=== PATIENT | female | born 1990 | race Caucasian/White ===

== ENCOUNTER 2017-03-15 13:54 | Inpatient (IN) | payer BC ==
[2017-03-15] VITALS (8 sets, daily range): BP systolic 103–119; BP diastolic 55–72
[~2017-03-15] VITALS: Ht 175.3 cm; Wt 141.6 kg
[~2017-03-15 13:54] MED LIST: BUPIVACAINE-EPI 0.5%-1:200000 50 ML VIAL. ONE
[2017-03-15] MEDS ORDERED: PROPOFOL 20 ML IV ONE (14:06)
[2017-03-15] MEDS ORDERED: DEXAMETHASONE SOD PHOS 20 MG/5 ML VIAL. ONE (14:06)
[2017-03-15] MEDS ORDERED: LIDOCAINE 2% PF Vial for OR 5 ML VIAL. ONE (14:06)
[2017-03-15] MEDS ORDERED: ONDANSETRON PF 4 MG/2 ML VIAL. ONE (14:06)
[2017-03-15] MEDS ORDERED: fentaNYL PF VIAL 100 MCG/2 ML VIAL ONE (14:06)
[2017-03-15] MEDS ORDERED: MIDAZOLAM HCL/PF 2 MG/2 ML VIAL. ONE (14:06)
[2017-03-15] MEDS ORDERED: SUCCINYLCHOLINE 200 MG/10 ML VIAL. ONE (14:07)
[2017-03-15] MEDS ORDERED: ROCURONIUM 100 MG/10 ML VIAL. ONE (14:07)
[2017-03-15] MEDS ORDERED: IV NORMAL SALINE 1000ML BAG 1,000 ML IV ONE (14:15)
--- NOTE | 2017-03-15 14:36 | PDOC1 ---
History and Physical Date of Admission Date of Admission DATE: 03/15/17 TIME: 14:32 Identification/Chief Complaint Chief Complaint Abd pain, appendicitis Problems: Source Source: Patient History of Present Illness History of Present Illness 26 yo F with one history of abd pain moving into [facility], started yesterday evening , but awoken from sleep this AM. Denies previous episodes. Past Medical History GI: GERD Past Surgical History Past Surgical History: Other (gastric sleeve last month, lost 30 lbs since) Family History Family History: No Significant Social History Smoke: No ALCOHOL: none Current Medications Current Medications Current Medications Dexamethasone Sodium Phosphate (Decadron) 20 mg STK-MED ONCE .ROUTE ; Start 03/15/17 at 14:06; Stop 03/15/17 at 14:07; Status DC Ondansetron HCl (Zofran) 4 mg STK-MED ONCE .ROUTE ; Start 03/15/17 at 14:06; Stop 03/15/17 at 14:07; Status DC Propofol 20 ml @ As Directed STK-MED ONCE IV ; Start 03/15/17 at 14:06; Stop at 14:07; Status DC Lidocaine HCl (Lidocaine Pf 2% Vial) 5 ml STK-MED ONCE .ROUTE ; Start 03/15/17 at 14:06; Stop 03/15/17 at 14:07; Status DC Midazolam HCl (Versed) 2 mg STK-MED ONCE .ROUTE ; Start 03/15/17 at 14:06; Stop 03/15/17 at 14:07; Status DC Fentanyl Citrate (Fentanyl 2ml Vial) 100 mcg STK-MED ONCE .ROUTE ; Start at 14:06; Stop 03/15/17 at 14:07; Status DC Rocuronium [place] (Zemuron) 100 mg STK-MED ONCE .ROUTE ; Start 03/15/17 at 14: 07; Stop 03/15/17 at 14:08; Status DC Succinylcholine Chloride (Anectine) 200 mg STK-MED ONCE .ROUTE ; Start 03/15/17 at 14:07; Stop 03/15/17 at 14:08; Status DC Bupivacaine HCl/ Epinephrine Bitart (Marcaine-Epi 0.5%-1:[id number]) 50 ml STK-MED ONCE .ROUTE ; Start 03/15/17 at 13:07; Stop 03/15/17 at 14:08; Status DC Cefoxitin Sodium 2 gm/Sodium Chloride 100 ml @ 200 mls/hr 1X PREOP IV ; Start 03/15/17 at 14:15; Status UNV Sodium Chloride 1,000 ml @ 125 mls/hr 1X ONCE IV Last administered on t 14:15; Start 03/15/17 at 14:15; Stop 03/15/17 at 22:14; Status UNV ROS Gastrointestinal: Yes Abdominal Pain Physical Exam General: Alert, Oriented X3, Cooperative, mild distress HEENT: Atraumatic, EOMI Lungs: Normal air movement Abdomen: Soft, Other (TTP RLQ, well healed incisions) Male Genitals Exam: testicular tenderness (R) Rectal Exam: not examined Extremities: No clubbing, No cyanosis Skin: No rashes, No breakdown Neuro: Normal speech, Sensation intact Psych/Mental Status: Mental status NL, Mood NL, Other (pt morbidly obese) Vitals Vitals Vital Signs Date Time Temp Pulse Resp B/P (MAP) Pulse Ox O2 Delivery O2 Flow Rate FiO2 03/15/17 14:19 96.9 73 20 120/69 96 96.9 Labs Labs labs wnl at [facility] Images CT c/w appendicitis VTE Prophylaxis Ordered VTE Prophylaxis Devices: Contraindicated VTE Pharmacological Prophylaxi: Contraindicated Assessment/Plan Assessment/Plan Appendicitis TO OR for laparoscopic versus open appendectomy. R/B/A d/w pt and pt's . POPPY TUBBS MD Mar 15, 2017 14:36
--- NOTE | 2017-03-15 15:28 | PDOC4 ---
OPERATIVE NOTE Date: Date: Mar 15, 2017 Pre-Op Diagnosis: Appendicitis Post-Op Diagnosis: appendicitis with perforation Procedure Performed: Laparoscopic appendectomy Surgeon: Lorenzo Tubbs Anesthesia Type: GETA plus 0.5% marcaine Blood Loss: 50 Specimans Obtained: appendix Findings: evidence of perforation of the tip Complications: none Operative Note: After obtaining informed consent, patient was taken to the OR and induced under GETA. Patient was prepped and drapped in usual fashion. 5 mm port placed LLQ and suprapubic. 12 port placed in supraumbilical under laparoscopic guidance. No evidence of complications of gastric sleeve. Appendix was very indurated and the tip had perforated with stool. Defect created in the mesoappendix. General load GAGAN divided appendix at base. Vascular load divided mesoappendix. Appendix was delivered via endocatch bag. Copious irrigation. O vicryl repaired fascia. Skin repaired with 4 0 monocryl. Dressing applied. Patient tolerated procedure well and sent to PACU in stable condition. All counts correct. No immediate complications. Wound class is dirty. LORENZO TUBBS MD Mar 15, 2017 15:28
[2017-03-15] MEDS ORDERED: ENOXAPARIN 40 MG/0.4 ML SYRINGE. SQ SCH (15:30)
[2017-03-15] MEDS ORDERED: HYDROcodone/APAP 5/325MG 1 TAB TABLET PO PRN (15:30)
[2017-03-15] MEDS ORDERED: 0.9 % SODIUM CHLORIDE 10 ML DISP.SYRIN. IV PRN (15:30)
[2017-03-15] MEDS ORDERED: KETOROLAC 15 MG/ML VIAL. IV PRN (15:30)
[2017-03-15] MEDS ORDERED: MORPHINE SULFATE 10 MG/ML VIAL. ONE (15:32)
[2017-03-15] MEDS ORDERED: IV RINGERS,LACTATED 1000ML 1,000 ML IV SCH (15:42)
[2017-03-15] MEDS ORDERED: LIDOCAINE 1% PF 2 ML VIAL. INJ PRN (15:45)
[2017-03-15] MEDS ORDERED: METOCLOPRAMIDE HCL 10 MG/2 ML VIAL. IV PRN (15:45)
[2017-03-15] MEDS ORDERED: MORPHINE SULFATE 2 MG/ML DISP.SYRIN. IV PRN (15:45)
[2017-03-15] MEDS ORDERED: fentaNYL PF VIAL 100 MCG/2 ML VIAL IV PRN (15:45)
[2017-03-15] MEDS ORDERED: MEPERIDINE PF 25 MG/ML VIAL. IV PRN ×2 (15:45)
[2017-03-15] MEDS ORDERED: MORPHINE SULFATE 4 MG/ML DISP.SYRIN. IV PRN (15:45)
[2017-03-15] MEDS ORDERED: diphenhydrAMINE 50 MG/ML VIAL IV PRN (15:45)
[2017-03-15] MEDS ORDERED: DEXAMETHASONE SOD PHOS 4 MG/ML VIAL IV PRN (15:45)
[2017-03-15] MEDS ORDERED: ALBUTEROL SULFATE 2.5 MG/3 ML NEBU. NEB PRN (15:45)
[2017-03-15] MEDS ORDERED: ONDANSETRON PF 4 MG/2 ML VIAL. IV PRN (15:45)
[2017-03-15] MEDS ORDERED: PROCHLORPERAZINE 10 MG/2 ML VIAL. ONE (15:48)
[2017-03-15] MEDS: fentaNYL PF VIAL 100 MCG/2 ML VIAL IV PRN ×2 (15:53→15:58)
[2017-03-15] MEDS ORDERED: PROCHLORPERAZINE 5 MG TABLET. PO PRN (16:00)
[2017-03-15] MEDS: HYDROmorphone 2 MG/ML VIAL IV PRN ×3 (16:16→16:52)
[2017-03-15] MEDS: PIPERACILLIN/TAZOBACTAM 3.375 GM in IV NORMAL SALINE 50ML 50 ML IV SCH (17:24)
[2017-03-15] MEDS: MORPHINE SULFATE 4 MG/ML DISP.SYRIN. IV PRN ×3 (17:24→22:19)
[2017-03-15] MEDS: IV RINGERS,LACTATED 1000ML 1,000 ML IV SCH ×2 (17:28)
[2017-03-15] MEDS: ONDANSETRON PF 4 MG/2 ML VIAL. IV PRN (17:37)
--- NOTE | 2017-03-15 18:46 | HP ---
ADMIT DATE: 03/15/2017 CHIEF COMPLAINT: Abdominal pain, appendicitis. HISTORY OF PRESENT ILLNESS: The patient is a pleasant, healthy 26-year-old female who went to [facility] ER with abdominal pain. They did a CAT scan that showed appendicitis. She has now been transferred here to our facility where she just underwent laparoscopic appendectomy. She is now being examined in the postoperative period. PAST MEDICAL HISTORY: Overweight, but otherwise benign. ALLERGIES: None. FAMILY HISTORY: Diabetes. SOCIAL HISTORY: She does not drink, smoke or take drugs. MEDICATIONS: Reviewed. REVIEW OF SYSTEMS: Unreliable. The patient is little too confused after surgery, a little sedated. PHYSICAL EXAMINATION: VITAL SIGNS: Temperature afebrile, pulse 74, respirations 18, blood pressure 144/64. GENERAL: She is sleeping. She awakens. She is a little confused. HEART: Normal S1, S2. LUNGS: Clear. ABDOMEN: Soft. There are clean trocars sites with clean, dry, intact bandaging. ENDOCRINE: No thyromegaly. LYMPHATICS: No cervical nodes. HEMATOPOIETIC: No bruising. ASSESSMENT AND PLAN: Postop laparoscopic appendectomy. The patient is being admitted. We will check her labs again in the morning. Wound care. Try to advance her diet. We certainly agree and appreciate with General Surgery's rapid intervention. FLAKO WATT DO DR: ENRIQUE/meena JOB#: [id number] / [id number]
[2017-03-15] MEDS ORDERED: MULT1TAB52 PO (19:51)
[2017-03-15] MEDS ORDERED: OMEP20CA9 PO (19:51)
[2017-03-15] MEDS: DOCUSATE SODIUM 100 MG CAPSULE. PO SCH (22:18)
[2017-03-16] MEDS: IV RINGERS,LACTATED 1000ML 1,000 ML IV SCH ×4 (00:51→21:19)
[2017-03-16] MEDS: PIPERACILLIN/TAZOBACTAM 3.375 GM in IV NORMAL SALINE 50ML 50 ML IV SCH ×4 (00:51→18:00)
[2017-03-16 03:00] VITALS: BP 111/71
[2017-03-16 05:03] LABS: BASO % 0 % (0-3); EOS % 0 % (0-3); HEMATOCRIT 41.1 % (36.0-47.0); HEMOGLOBIN 13.5 g/dL (12.0-15.5); LYMPH # 0.6 x10^3/uL (1.0-4.8); LYMPH % 6 % (24-48); MEAN CORPUSCULAR HEMOGLOBIN 30 pg (25-35); MEAN CORPUSCULAR HGB CONC 33 g/dL (31-37); MEAN CORPUSCULAR VOLUME 91 fL (79-100); MONO % 6 % (0-9); NEUT % 88 % (31-73); PLATELET COUNT 200 x10^3/uL (140-400); RED BLOOD COUNT 4.54 x10^6/uL (3.50-5.40); RED CELL DISTRIBUTION WIDTH 14.9 % (11.5-14.5); WHITE BLOOD COUNT 11.6 x10^3/uL (4.0-11.0)
[2017-03-16 05:39] LABS: CREATININE 0.8 mg/dL (0.6-1.0); GFR 85.4
[2017-03-16 07:00] VITALS: BP 108/66
[2017-03-16] MEDS: MORPHINE SULFATE 4 MG/ML DISP.SYRIN. IV PRN ×5 (08:45→19:58)
[2017-03-16] MEDS: DOCUSATE SODIUM 100 MG CAPSULE. PO SCH ×2 (08:46→21:13)
[2017-03-16] MEDS ORDERED: HYDROcodone/APAP 5/325MG 1 TAB TABLET PO PRN (09:15)
--- NOTE | 2017-03-16 09:18 | PDOC ---
SURGICAL PROGRESS NOTE Subjective some pain, improved with meds tolerating diet urinating Vital Signs Vital Signs Date Time Temp Pulse Resp B/P (MAP) Pulse Ox O2 Delivery O2 Flow Rate FiO2 03/16/17 08:45 Room Air 03/16/17 07:00 97.8 84 18 108/66 (80) 95 2.0 97.8 General: Alert, Oriented X3, Cooperative, No acute distress Abdomen: Soft, Other (lap dressings dry, expected incisional TTP) Labs Laboratory Tests Test 03/16/17 04:28 White Blood Count 11.6 x10^3/uL (4.0-11.0) Red Blood Count 4.54 x10^6/uL (3.50-5.40) Hemoglobin 13.5 g/dL (12.0-15.5) Hematocrit 41.1 % (36.0-47.0) Mean Corpuscular Volume 91 fL (79-100) Mean Corpuscular Hemoglobin 30 pg (25-35) Mean Corpuscular Hemoglobin Concent 33 g/dL (31-37) Red Cell Distribution Width 14.9 % (11.5-14.5) Platelet Count 200 x10^3/uL (140-400) Neutrophils (%) (Auto) 88 % (31-73) Lymphocytes (%) (Auto) 6 % (24-48) Monocytes (%) (Auto) 6 % (0-9) Eosinophils (%) (Auto) 0 % (0-3) Basophils (%) (Auto) 0 % (0-3) Neutrophils # (Auto) 10.2 x10^3uL (1.8-7.7) Lymphocytes # (Auto) 0.6 x10^3/uL (1.0-4.8) Monocytes # (Auto) 0.7 x10^3/uL (0.0-1.1) Eosinophils # (Auto) 0.0 x10^3/uL (0.0-0.7) Basophils # (Auto) 0.0 x10^3/uL (0.0-0.2) Sodium Level 137 mmol/L (136-145) Potassium Level 4.0 mmol/L (3.5-5.1) Chloride Level 103 mmol/L (98-107) Carbon Dioxide Level 22 mmol/L (21-32) Anion Gap 12 (6-14) Blood Urea Nitrogen 5 mg/dL (7-20) Creatinine 0.8 mg/dL (0.6-1.0) Estimated GFR (Cockcroft-Gault) 85.4 Glucose Level 146 mg/dL (70-99) Calcium Level 9.0 mg/dL (8.5-10.1) Laboratory Tests Test 03/16/17 04:28 White Blood Count 11.6 x10^3/uL (4.0-11.0) Red Blood Count 4.54 x10^6/uL (3.50-5.40) Hemoglobin 13.5 g/dL (12.0-15.5) Hematocrit 41.1 % (36.0-47.0) Mean Corpuscular Volume 91 fL (79-100) Mean Corpuscular Hemoglobin 30 pg (25-35) Mean Corpuscular Hemoglobin Concent 33 g/dL (31-37) Red Cell Distribution Width 14.9 % (11.5-14.5) Platelet Count 200 x10^3/uL (140-400) Neutrophils (%) (Auto) 88 % (31-73) Lymphocytes (%) (Auto) 6 % (24-48) Monocytes (%) (Auto) 6 % (0-9) Eosinophils (%) (Auto) 0 % (0-3) Basophils (%) (Auto) 0 % (0-3) Neutrophils # (Auto) 10.2 x10^3uL (1.8-7.7) Lymphocytes # (Auto) 0.6 x10^3/uL (1.0-4.8) Monocytes # (Auto) 0.7 x10^3/uL (0.0-1.1) Eosinophils # (Auto) 0.0 x10^3/uL (0.0-0.7) Basophils # (Auto) 0.0 x10^3/uL (0.0-0.2) Sodium Level 137 mmol/L (136-145) Potassium Level 4.0 mmol/L (3.5-5.1) Chloride Level 103 mmol/L (98-107) Carbon Dioxide Level 22 mmol/L (21-32) Anion Gap 12 (6-14) Blood Urea Nitrogen 5 mg/dL (7-20) Creatinine 0.8 mg/dL (0.6-1.0) Estimated GFR (Cockcroft-Gault) 85.4 Glucose Level 146 mg/dL (70-99) Calcium Level 9.0 mg/dL (8.5-10.1) Problem List s/p lap appy, tip perforation continue abx did require some morphine this AM cbc in AM Problems: JORGE DEVI APRN Mar 16, 2017 09:18
[2017-03-16 11:00] VITALS: BP 122/63
--- NOTE | 2017-03-16 12:53 | PDOC ---
PROGRESS NOTES Chief Complaint Chief Complaint acute appendicitis with perforation s/p lap appendectomy 03/15 morbid obesity BMI 44 SIRS no sepsis PLAN; fu with sx, clear liquid diet, may advance to full liquid at least today if ok with sx ivf still on zosyn since perforation labs tmr pain control dvt, gi ppx History of Present Illness History of Present Illness ROS: no fever, chills, sob or chest pain NO BM OR flatus post op severe abd pain need iv morphine ok with clear diet Vitals Vitals Vital Signs Date Time Temp Pulse Resp B/P (MAP) Pulse Ox O2 Delivery O2 Flow Rate FiO2 03/16/17 12:04 Nasal Cannula 2.0 03/16/17 11:00 98.2 82 18 122/63 (82) 96 98.2 Physical Exam General: Alert, Oriented X3, Cooperative, No acute distress Heart: Regular rate, Normal S1, Normal S2 Lungs: Clear Abdomen: Normal bowel sounds, Soft, Other (lap dressings dry, expected incisional TTP) Extremities: No clubbing, No cyanosis Skin: No rashes, No breakdown Labs LABS Laboratory Tests Test 03/16/17 04:28 White Blood Count 11.6 x10^3/uL (4.0-11.0) Red Blood Count 4.54 x10^6/uL (3.50-5.40) Hemoglobin 13.5 g/dL (12.0-15.5) Hematocrit 41.1 % (36.0-47.0) Mean Corpuscular Volume 91 fL (79-100) Mean Corpuscular Hemoglobin 30 pg (25-35) Mean Corpuscular Hemoglobin Concent 33 g/dL (31-37) Red Cell Distribution Width 14.9 % (11.5-14.5) Platelet Count 200 x10^3/uL (140-400) Neutrophils (%) (Auto) 88 % (31-73) Lymphocytes (%) (Auto) 6 % (24-48) Monocytes (%) (Auto) 6 % (0-9) Eosinophils (%) (Auto) 0 % (0-3) Basophils (%) (Auto) 0 % (0-3) Neutrophils # (Auto) 10.2 x10^3uL (1.8-7.7) Lymphocytes # (Auto) 0.6 x10^3/uL (1.0-4.8) Monocytes # (Auto) 0.7 x10^3/uL (0.0-1.1) Eosinophils # (Auto) 0.0 x10^3/uL (0.0-0.7) Basophils # (Auto) 0.0 x10^3/uL (0.0-0.2) Sodium Level 137 mmol/L (136-145) Potassium Level 4.0 mmol/L (3.5-5.1) Chloride Level 103 mmol/L (98-107) Carbon Dioxide Level 22 mmol/L (21-32) Anion Gap 12 (6-14) Blood Urea Nitrogen 5 mg/dL (7-20) Creatinine 0.8 mg/dL (0.6-1.0) Estimated GFR (Cockcroft-Gault) 85.4 Glucose Level 146 mg/dL (70-99) Calcium Level 9.0 mg/dL (8.5-10.1) Comment Review of Relevant I have reviewed the following items na (where applicable) has been applied. Labs Laboratory Tests Test 03/16/17 04:28 White Blood Count 11.6 x10^3/uL (4.0-11.0) Red Blood Count 4.54 x10^6/uL (3.50-5.40) Hemoglobin 13.5 g/dL (12.0-15.5) Hematocrit 41.1 % (36.0-47.0) Mean Corpuscular Volume 91 fL (79-100) Mean Corpuscular Hemoglobin 30 pg (25-35) Mean Corpuscular Hemoglobin Concent 33 g/dL (31-37) Red Cell Distribution Width 14.9 % (11.5-14.5) Platelet Count 200 x10^3/uL (140-400) Neutrophils (%) (Auto) 88 % (31-73) Lymphocytes (%) (Auto) 6 % (24-48) Monocytes (%) (Auto) 6 % (0-9) Eosinophils (%) (Auto) 0 % (0-3) Basophils (%) (Auto) 0 % (0-3) Neutrophils # (Auto) 10.2 x10^3uL (1.8-7.7) Lymphocytes # (Auto) 0.6 x10^3/uL (1.0-4.8) Monocytes # (Auto) 0.7 x10^3/uL (0.0-1.1) Eosinophils # (Auto) 0.0 x10^3/uL (0.0-0.7) Basophils # (Auto) 0.0 x10^3/uL (0.0-0.2) Sodium Level 137 mmol/L (136-145) Potassium Level 4.0 mmol/L (3.5-5.1) Chloride Level 103 mmol/L (98-107) Carbon Dioxide Level 22 mmol/L (21-32) Anion Gap 12 (6-14) Blood Urea Nitrogen 5 mg/dL (7-20) Creatinine 0.8 mg/dL (0.6-1.0) Estimated GFR (Cockcroft-Gault) 85.4 Glucose Level 146 mg/dL (70-99) Calcium Level 9.0 mg/dL (8.5-10.1) Laboratory Tests Test 03/16/17 04:28 White Blood Count 11.6 x10^3/uL (4.0-11.0) Red Blood Count 4.54 x10^6/uL (3.50-5.40) Hemoglobin 13.5 g/dL (12.0-15.5) Hematocrit 41.1 % (36.0-47.0) Mean Corpuscular Volume 91 fL (79-100) Mean Corpuscular Hemoglobin 30 pg (25-35) Mean Corpuscular Hemoglobin Concent 33 g/dL (31-37) Red Cell Distribution Width 14.9 % (11.5-14.5) Platelet Count 200 x10^3/uL (140-400) Neutrophils (%) (Auto) 88 % (31-73) Lymphocytes (%) (Auto) 6 % (24-48) Monocytes (%) (Auto) 6 % (0-9) Eosinophils (%) (Auto) 0 % (0-3) Basophils (%) (Auto) 0 % (0-3) Neutrophils # (Auto) 10.2 x10^3uL (1.8-7.7) Lymphocytes # (Auto) 0.6 x10^3/uL (1.0-4.8) Monocytes # (Auto) 0.7 x10^3/uL (0.0-1.1) Eosinophils # (Auto) 0.0 x10^3/uL (0.0-0.7) Basophils # (Auto) 0.0 x10^3/uL (0.0-0.2) Sodium Level 137 mmol/L (136-145) Potassium Level 4.0 mmol/L (3.5-5.1) Chloride Level 103 mmol/L (98-107) Carbon Dioxide Level 22 mmol/L (21-32) Anion Gap 12 (6-14) Blood Urea Nitrogen 5 mg/dL (7-20) Creatinine 0.8 mg/dL (0.6-1.0) Estimated GFR (Cockcroft-Gault) 85.4 Glucose Level 146 mg/dL (70-99) Calcium Level 9.0 mg/dL (8.5-10.1) Medications Current Medications Dexamethasone Sodium Phosphate (Decadron) 20 mg STK-MED ONCE .ROUTE ; Start 03/15/17 at 14:06; Stop 03/15/17 at 14:07; Status DC Ondansetron HCl (Zofran) 4 mg STK-MED ONCE .ROUTE ; Start 03/15/17 at 14:06; Stop 03/15/17 at 14:07; Status DC Propofol 20 ml @ As Directed STK-MED ONCE IV ; Start 03/15/17 at 14:06; Stop at 14:07; Status DC Lidocaine HCl (Lidocaine Pf 2% Vial) 5 ml STK-MED ONCE .ROUTE ; Start 03/15/17 at 14:06; Stop 03/15/17 at 14:07; Status DC Midazolam HCl (Versed) 2 mg STK-MED ONCE .ROUTE ; Start 03/15/17 at 14:06; Stop 03/15/17 at 14:07; Status DC Fentanyl Citrate (Fentanyl 2ml Vial) 100 mcg STK-MED ONCE .ROUTE ; Start at 14:06; Stop 03/15/17 at 14:07; Status DC Rocuronium [place] (Zemuron) 100 mg STK-MED ONCE .ROUTE ; Start 03/15/17 at 14: 07; Stop 03/15/17 at 14:08; Status DC Succinylcholine Chloride (Anectine) 200 mg STK-MED ONCE .ROUTE ; Start 03/15/17 at 14:07; Stop 03/15/17 at 14:08; Status DC Bupivacaine HCl/ Epinephrine Bitart (Marcaine-Epi 0.5%-1:[id number]) 50 ml STK-MED ONCE .ROUTE Last administered on 03/15/17 14:54; Start 03/15/17 at 13:07; Stop 03/15/17 at 14:08; Status DC Cefoxitin Sodium 2 gm/Sodium Chloride 100 ml @ 200 mls/hr 1X PREOP IV Last administered on 03/15/17 14:55; Start 03/15/17 at 16:00 Sodium Chloride 1,000 ml @ 125 mls/hr 1X ONCE IV Last administered on 14:15; Start 03/15/17 at 14:15; Stop 03/15/17 at 22:14; Status DC Cefoxitin Sodium 100 ml @ As Directed STK-MED ONCE IV ; Start 03/15/17 at 14:53 ; Stop 03/15/17 at 14:54; Status DC Enoxaparin Sodium (Lovenox 40mg Syringe) 40 mg Q24H SQ ; Start 03/15/17 at 15:30 Sodium Chloride (Normal Saline Flush) 3 ml QSHIFT PRN IV AFTER MEDS AND BLOOD DRAWS; Start 03/15/17 at 15:30 Ringer's Solution 1,000 ml @ 100 mls/hr Q10H IV Last administered on 12:07; Start 03/15/17 at 15:19 Acetaminophen/ Hydrocodone Bitart (Lortab 5/325) 1 tab PRN Q4HRS PRN PO MILD PAIN Last administered on 03/16/17 02:56; Start 03/15/17 at 15:30 Ketorolac Tromethamine (Toradol) 15 mg PRN Q6HRS PRN IV PAIN; Start 03/15/17 at 15:30; Stop 03/16/17 at 09:05; Status DC Morphine Sulfate 2 mg PRN Q1HR PRN IV PAIN Last administered on 03/16/17 12:03 ; Start 03/15/17 at 15:30 Docusate Sodium (Colace) 100 mg BID PO Last administered on 03/16/17 08:46; Start 03/15/17 at 21:00 Ondansetron HCl (Zofran) 4 mg PRN Q6HRS PRN IV NAUESA, 1ST CHOICE Last administered on 03/15/17 17:37; Start 03/15/17 at 15:30 Piperacillin Sod/ Tazobactam Sod 3.375 gm/Sodium Chloride 50 ml @ 100 mls/hr Q6HRS IV Last administered on 03/16/17 12:05; Start 03/15/17 at 18:00 Morphine Sulfate 10 mg STK-MED ONCE .ROUTE ; Start 03/15/17 at 15:32; Stop 03/15 at 15:33; Status DC Ringer's Solution 1,000 ml @ 125 mls/hr Q8H IV Last administered on 03/16/17 00:51; Start 03/15/17 at 15:42; Stop 03/16/17 at 03:41; Status DC Lidocaine HCl (Xylocaine-Mpf 1% Vial) 0.5 ml 1X PRN PRN INJ IV START; Start at 15:45; Stop 03/16/17 at 15:44 Ringer's Solution 1,000 ml @ 125 mls/hr Q8H IV ; Start 03/15/17 at 15:42; Stop 03/15/17 at 21:41; Status DC Fentanyl Citrate (Fentanyl 2ml Vial) 25 mcg PRN Q5MIN PRN IV Acute Pain; Start 03/15/17 at 15:45; Stop 03/16/17 at 09:05; Status DC Fentanyl Citrate (Fentanyl 2ml Vial) 50 mcg PRN Q5MIN PRN IV Acute Pain Last administered on 03/15/17 15:58; Start 03/15/17 at 15:45; Stop 03/16/17 at 09:05 ; Status DC Morphine Sulfate 2 mg PRN Q10MIN PRN IV Mild Pain; Start 03/15/17 at 15:45; Stop 03/16/17 at 09:05; Status DC Morphine Sulfate 4 mg PRN Q10MIN PRN IV Moderate Pain; Start 03/15/17 at 15:45 ; Stop 03/16/17 at 09:05; Status DC Ondansetron HCl (Zofran) 4 mg PRN Q6HRS PRN IV Nausea, 1st Choice; Start at 15:45; Stop 03/16/17 at 09:05; Status DC Metoclopramide HCl (Reglan) 10 mg PRN Q6HRS PRN IV Nausea/Vomiting, 2nd Choice Last administered on 03/15/17 18:49; Start 03/15/17 at 15:45; Stop 03/16/17 at 15:44 Diphenhydramine HCl (Benadryl) 12.5 mg PRN Q2HR PRN IV ITCHING; Start 03/15/17 at 15:45; Stop 03/16/17 at 15:44 Albuterol Sulfate (Ventolin Neb Soln) 2.5 mg PRN 1X PRN NEB Shortness of Breath , Wheezing; Start 03/15/17 at 15:45; Stop 03/16/17 at 15:44 Dexamethasone Sodium Phosphate (Decadron) 8 mg 1X PRN PRN IV 3RD CHOICE FOR NAUSEA; Start 03/15/17 at 15:45; Stop 03/16/17 at 15:44 Meperidine HCl (Demerol) 10 mg 1X PERIOP PRN IV SHIVERING; Start 03/15/17 at 15 :45; Stop 03/16/17 at 15:44 Meperidine HCl (Demerol) 15 mg 1X PERIOP PRN IV SHIVERING; Start 03/15/17 at 15 :45; Stop 03/16/17 at 15:44 Prochlorperazine Edisylate (Compazine) 10 mg STK-MED ONCE .ROUTE ; Start at 15:48; Stop 03/15/17 at 15:49; Status DC Prochlorperazine Maleate (Compazine) 5 mg 1X PACU PRN PO NAUSEA/VOMITING; Start 03/15/17 at 16:00 Hydromorphone HCl (Dilaudid) 0.5 mg PRN Q10MIN PRN IV PAIN Last administered on 03/15/17 16:52; Start 03/15/17 at 16:15; Stop 03/16/17 at 09:05; Status DC Acetaminophen/ Hydrocodone Bitart (Lortab 5/325) 2 tab PRN Q4HRS PRN PO PAIN Last administered on 03/16/17 10:16; Start 03/16/17 at 09:15 Active Scripts Active Reported Multivitamins (Multivitamin) 1 Each Tablet 1 Tab PO DAILY Omeprazole 20 Mg Capsule.dr 1 Cap PO DAILY Vitals/I & O Vital Sign - Last 24 Hours 03/15/17 03/15/17 03/15/17 03/15/17 14:19 15:35 15:35 15:50 Temp 96.9 98.2 96.9 98.2 Pulse 73 75 72 Resp 20 16 16 B/P (MAP) 120/69 116/86 94/78 Pulse Ox 96 100 100 O2 Delivery Simple Mask Mask Simple Mask O2 Flow Rate 10 10 10 03/15/17 03/15/17 03/15/17 03/15/17 15:53 15:58 16:05 16:10 Pulse 64 Resp 20 16 16 B/P (MAP) 97/41 Pulse Ox 10 94 95 O2 Delivery Nasal Cannula Room Air Nasal Cannula O2 Flow Rate 10.0 2.0 2 03/15/17 03/15/17 03/15/17 03/15/17 16:16 16:20 16:29 16:35 Pulse 66 66 Resp 18 14 16 14 B/P (MAP) 97/57 99/57 Pulse Ox 95 95 97 97 O2 Delivery Nasal Cannula Nasal Cannula Nasal Cannula Nasal Cannula O2 Flow Rate 2.0 2 2.0 2 03/15/17 03/15/17 03/15/17 03/15/17 16:50 16:52 17:15 17:15 Temp 97.5 97.5 Pulse 67 57 Resp 14 18 16 B/P (MAP) 116/61 114/58 (76) Pulse Ox 97 96 99 O2 Delivery Nasal Cannula Nasal Cannula Nasal Cannula Nasal Cannula O2 Flow Rate 2 2.0 2.0 2.0 03/15/17 03/15/17 03/15/17 03/15/17 17:24 17:29 17:30 17:45 Pulse 70 89 Resp 16 B/P (MAP) 108/57 (74) 111/55 (73) Pulse Ox 98 97 O2 Delivery Nasal Cannula Nasal Cannula Nasal Cannula Nasal Cannula O2 Flow Rate 2.0 2.0 03/15/17 03/15/17 03/15/17 03/15/17 18:00 18:30 19:00 19:20 Temp 98.2 98.2 Pulse 87 87 81 Resp 16 16 19 B/P (MAP) 113/62 (79) 119/72 (88) 103/65 (78) Pulse Ox 97 97 98 97 O2 Delivery Nasal Cannula Nasal Cannula Nasal Cannula Nasal Cannula O2 Flow Rate 2.0 2.0 2.0 2.0 03/15/17 03/15/17 03/15/17 03/15/17 19:50 20:00 20:00 22:19 Temp 98.2 98.2 Pulse 89 Resp 19 16 B/P (MAP) 111/68 (82) Pulse Ox 98 98 O2 Delivery Nasal Cannula Nasal Cannula Nasal Cannula O2 Flow Rate 2.0 2.0 2.0 03/15/17 03/15/17 03/16/17 03/16/17 22:49 23:00 02:56 03:00 Temp 98.2 98.1 98.2 98.1 Pulse 91 85 Resp 16 21 16 19 B/P (MAP) 116/64 (81) 111/71 (84) Pulse Ox 93 93 93 93 O2 Delivery Nasal Cannula Room Air Room Air Nasal Cannula O2 Flow Rate 2.0 03/16/17 03/16/17 03/16/17 03/16/17 03:56 07:00 08:45 10:16 Temp 97.8 97.8 Pulse 84 Resp 16 18 B/P (MAP) 108/66 (80) Pulse Ox 93 95 95 O2 Delivery Room Air Nasal Cannula Room Air Nasal Cannula O2 Flow Rate 2.0 03/16/17 03/16/17 03/16/17 11:00 12:03 12:04 Temp 98.2 98.2 Pulse 82 Resp 18 B/P (MAP) 122/63 (82) Pulse Ox 96 O2 Delivery Nasal Cannula Nasal Cannula Nasal Cannula O2 Flow Rate 2.0 2.0 2.0 CHANEL HAWLEY MD Mar 16, 2017 12:53
--- NOTE | 2017-03-16 13:03 | PDOC ---
SURGICAL PROGRESS NOTE Subjective Called to evaluate pt with ripping pain after sitting up to look at lunch, sudden onset Vital Signs Vital Signs Date Time Temp Pulse Resp B/P (MAP) Pulse Ox O2 Delivery O2 Flow Rate FiO2 03/16/17 12:04 Nasal Cannula 2.0 03/16/17 11:00 98.2 82 18 122/63 (82) 96 98.2 General: Alert, Oriented X3, Cooperative, moderate distress Abdomen: Other (dressing intact, TTP RLQ) Labs Laboratory Tests Test 03/16/17 04:28 White Blood Count 11.6 x10^3/uL (4.0-11.0) Red Blood Count 4.54 x10^6/uL (3.50-5.40) Hemoglobin 13.5 g/dL (12.0-15.5) Hematocrit 41.1 % (36.0-47.0) Mean Corpuscular Volume 91 fL (79-100) Mean Corpuscular Hemoglobin 30 pg (25-35) Mean Corpuscular Hemoglobin Concent 33 g/dL (31-37) Red Cell Distribution Width 14.9 % (11.5-14.5) Platelet Count 200 x10^3/uL (140-400) Neutrophils (%) (Auto) 88 % (31-73) Lymphocytes (%) (Auto) 6 % (24-48) Monocytes (%) (Auto) 6 % (0-9) Eosinophils (%) (Auto) 0 % (0-3) Basophils (%) (Auto) 0 % (0-3) Neutrophils # (Auto) 10.2 x10^3uL (1.8-7.7) Lymphocytes # (Auto) 0.6 x10^3/uL (1.0-4.8) Monocytes # (Auto) 0.7 x10^3/uL (0.0-1.1) Eosinophils # (Auto) 0.0 x10^3/uL (0.0-0.7) Basophils # (Auto) 0.0 x10^3/uL (0.0-0.2) Sodium Level 137 mmol/L (136-145) Potassium Level 4.0 mmol/L (3.5-5.1) Chloride Level 103 mmol/L (98-107) Carbon Dioxide Level 22 mmol/L (21-32) Anion Gap 12 (6-14) Blood Urea Nitrogen 5 mg/dL (7-20) Creatinine 0.8 mg/dL (0.6-1.0) Estimated GFR (Cockcroft-Gault) 85.4 Glucose Level 146 mg/dL (70-99) Calcium Level 9.0 mg/dL (8.5-10.1) Laboratory Tests Test 03/16/17 04:28 White Blood Count 11.6 x10^3/uL (4.0-11.0) Red Blood Count 4.54 x10^6/uL (3.50-5.40) Hemoglobin 13.5 g/dL (12.0-15.5) Hematocrit 41.1 % (36.0-47.0) Mean Corpuscular Volume 91 fL (79-100) Mean Corpuscular Hemoglobin 30 pg (25-35) Mean Corpuscular Hemoglobin Concent 33 g/dL (31-37) Red Cell Distribution Width 14.9 % (11.5-14.5) Platelet Count 200 x10^3/uL (140-400) Neutrophils (%) (Auto) 88 % (31-73) Lymphocytes (%) (Auto) 6 % (24-48) Monocytes (%) (Auto) 6 % (0-9) Eosinophils (%) (Auto) 0 % (0-3) Basophils (%) (Auto) 0 % (0-3) Neutrophils # (Auto) 10.2 x10^3uL (1.8-7.7) Lymphocytes # (Auto) 0.6 x10^3/uL (1.0-4.8) Monocytes # (Auto) 0.7 x10^3/uL (0.0-1.1) Eosinophils # (Auto) 0.0 x10^3/uL (0.0-0.7) Basophils # (Auto) 0.0 x10^3/uL (0.0-0.2) Sodium Level 137 mmol/L (136-145) Potassium Level 4.0 mmol/L (3.5-5.1) Chloride Level 103 mmol/L (98-107) Carbon Dioxide Level 22 mmol/L (21-32) Anion Gap 12 (6-14) Blood Urea Nitrogen 5 mg/dL (7-20) Creatinine 0.8 mg/dL (0.6-1.0) Estimated GFR (Cockcroft-Gault) 85.4 Glucose Level 146 mg/dL (70-99) Calcium Level 9.0 mg/dL (8.5-10.1) Problem List no obvious sign of sepsis, suspect abdominal wall pain will adjust pain meds d/w pt and pt's Problems: POPPY TUBBS MD Mar 16, 2017 13:03
[2017-03-16] MEDS: PANTOPRAZOLE 40 MG TABLET.DR. PO SCH (13:45)
[2017-03-16] MEDS: MULTIVITAMIN with MINERAL TABLET. PO SCH (13:45)
[2017-03-16 15:00] VITALS: BP 115/71
[2017-03-16] MEDS: oxyCODONE/APAP 7.5/325 1 TAB TABLET PO PRN (17:34)
[2017-03-16 19:00] VITALS: BP 89/57
[2017-03-16] MEDS: ENOXAPARIN 40 MG/0.4 ML SYRINGE. SQ SCH (21:14)
[2017-03-16 23:00] VITALS: BP 102/57
[2017-03-17] MEDS: oxyCODONE/APAP 7.5/325 1 TAB TABLET PO PRN ×4 (01:00→22:13)
[2017-03-17 03:00] VITALS: BP 118/65
[2017-03-17] MEDS: MORPHINE SULFATE 4 MG/ML DISP.SYRIN. IV PRN ×4 (03:30→16:35)
[2017-03-17] MEDS: ONDANSETRON PF 4 MG/2 ML VIAL. IV PRN (03:53)
[2017-03-17 05:45] LABS: BASO % 0 % (0-3); EOS % 0 % (0-3); HEMOGLOBIN 13.1 g/dL (12.0-15.5); LYMPH # 1.2 x10^3/uL (1.0-4.8); LYMPH % 12 % (24-48); MEAN CORPUSCULAR HEMOGLOBIN 30 pg (25-35); MEAN CORPUSCULAR HGB CONC 34 g/dL (31-37); MEAN CORPUSCULAR VOLUME 90 fL (79-100); MONO % 7 % (0-9); NEUT % 81 % (31-73); PLATELET COUNT 189 x10^3/uL (140-400); RED BLOOD COUNT 4.32 x10^6/uL (3.50-5.40); RED CELL DISTRIBUTION WIDTH 15.1 % (11.5-14.5); WHITE BLOOD COUNT 9.6 x10^3/uL (4.0-11.0)
[2017-03-17] MEDS: PIPERACILLIN/TAZOBACTAM 3.375 GM in IV NORMAL SALINE 50ML 50 ML IV SCH ×5 (06:56→18:00)
[2017-03-17 07:00] VITALS: BP 112/49
[2017-03-17] MEDS: IV RINGERS,LACTATED 1000ML 1,000 ML IV SCH ×2 (07:19→17:19)
[2017-03-17] MEDS ORDERED: CONTRAST GIVEN MC PRN (07:45)
[2017-03-17] MEDS ORDERED: IOHEXOL 240 MG/ML 50ML VIAL. PO ONE (08:00)
[2017-03-17] MEDS ORDERED: IV NORMAL SALINE 1000ML BAG 1,000 ML IV ONE (08:00)
[2017-03-17] MEDS ORDERED: IOHEXOL 300 MG/ML 75 ML VIAL IV ONE (08:00)
--- NOTE | 2017-03-17 08:17 | PDOC ---
Infectious Disease Note ROS ROS Vital Sign Vital Signs Vital Signs Date Time Temp Pulse Resp B/P (MAP) Pulse Ox O2 Delivery O2 Flow Rate FiO2 03/17/17 06:54 16 96 Nasal Cannula 2.0 03/17/17 03:00 99.1 93 118/65 (82) 99.1 Labs Lab Laboratory Tests Test 03/17/17 05:05 03/17/17 06:15 White Blood Count 9.6 x10^3/uL (4.0-11.0) Red Blood Count 4.32 x10^6/uL (3.50-5.40) Hemoglobin 13.1 g/dL (12.0-15.5) Hematocrit 39.0 % (36.0-47.0) Mean Corpuscular Volume 90 fL (79-100) Mean Corpuscular Hemoglobin 30 pg (25-35) Mean Corpuscular Hemoglobin Concent 34 g/dL (31-37) Red Cell Distribution Width 15.1 % (11.5-14.5) Platelet Count 189 x10^3/uL (140-400) Neutrophils (%) (Auto) 81 % (31-73) Lymphocytes (%) (Auto) 12 % (24-48) Monocytes (%) (Auto) 7 % (0-9) Eosinophils (%) (Auto) 0 % (0-3) Basophils (%) (Auto) 0 % (0-3) Neutrophils # (Auto) 7.8 x10^3uL (1.8-7.7) Lymphocytes # (Auto) 1.2 x10^3/uL (1.0-4.8) Monocytes # (Auto) 0.6 x10^3/uL (0.0-1.1) Eosinophils # (Auto) 0.0 x10^3/uL (0.0-0.7) Basophils # (Auto) 0.0 x10^3/uL (0.0-0.2) Lactic Acid Level 0.8 mmol/L (0.4-2.0) Objective Assessment ? developing sepsis Appendicitis s/p appendectomy 03/15 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 s/p Dexamethasone 03/15 vs reactive Plan Plan of Care Cont Zosyn Add Fluconazole and Vanc (recent surgery and exposure to population at risk for resistance) F/u CT scan/blood cult Labs in am Thank you # [id number] GENE FRAZIER MD Mar 17, 2017 08:17
[2017-03-17] MEDS: FLUCONAZOLE 400MG/200ML PREMIX 200 ML IV SCH (09:00)
[2017-03-17] MEDS ORDERED: VANCOMYCIN 2 GM in IV NORMAL SALINE 500ML BAG 500 ML IV ONE (09:00)
--- NOTE | 2017-03-17 09:21 | CONS ---
DATE OF CONSULTATION: 03/17/2017 LOCATION: The patient is in room #442. REQUESTING PHYSICIAN: Dr. Bah. REASON FOR CONSULTATION: Questionable sepsis. HISTORY OF PRESENT ILLNESS: Ms. Monte is a pleasant 26-year-old female who in February 2017 underwent a gastric sleeve surgery. She has been doing fairly well and has actually lost close to 30 pounds. She began to have sharp right lower quadrant pain that started approximately the or so march. She did not have any nausea, vomiting or diarrhea, but she presented [place] [facility] [place] . She had got a white count of 9.2 with a normal differential. Urinalysis was obtained that did not look consistent with a urinary tract infection, and she underwent a CT scan of the abdomen and pelvis which revealed acute appendicitis with moderate pericecal inflammation. She was started on Zosyn and was brought to [facility], and was taken to the operating room by Dr. Wray on the 15 of March and underwent a laparoscopic appendectomy. She did receive perioperative dexamethasone and had been continued on her Zosyn. This morning, she is complaining of increased pain, weakness. She feels she is having gross chills, although her body feels warm. She has no gross headaches. No sinus issues. No nausea. No chest pain. She has had some flatus, but no bowel movement. States her bowel movements are normally every 3 days since her gastric sleeve. She denies any dysuria, frequency or urgency. PAST MEDICAL HISTORY: Positive for obesity. She also takes omeprazole for history of gastric sleeve. PAST SURGICAL HISTORY: Positive for removal of esophageal cyst. She has had wisdom teeth extraction, cholecystectomy, appendectomy, D and C. She got an extra digit removed off her left hand when she was a child. She also underwent the gastric sleeve as mentioned above. REVIEW OF SYSTEMS: As mentioned above. ALLERGIES: LISTED TO NONSTEROIDALS. 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 No tobacco. She has 2 kittens at home. FAMILY HISTORY: Positive for diabetes. CURRENT MEDICATIONS: She did receive cefoxitin perioperatively x 1. Zosyn has been continued. She on Lovenox, fentanyl, hydrocodone, metoclopramide. Other meds are available, had been reviewed in the chart. PHYSICAL EXAMINATION: VITAL SIGNS: Temperature currently at 99.1. She did have a blood pressure drop of 89/57 overnight, but currently is 118/65. Respiratory rate 18, pulse 93, satting 96% on 2 liters. CONSTITUTIONAL: She looks tired, but she is cooperative, in no acute distress. HEENT: Pupils are equal and reactive with normal conjunctivae. Oral cavity, pharynx is clear. NECK: Supple, no JVD. LUNGS: Decreased at the bases. HEART: S1, S2. ABDOMEN: Obese. Incisions are well-dressed, are clean. She has had decreased bowel sounds. EXTREMITIES: Without clubbing or cyanosis. No gross edema. SKIN: Warm to touch. There is no generalized rash. She does have tattoos in her lower extremities. NEUROLOGIC: She is nonfocal and appropriate. PSYCHIATRIC: Affect is appropriate, but appears again tired. DIAGNOSTIC DATA: Laboratory values: White count today 9.6, hemoglobin 13.1, platelets of 189, segs were 81, lymphs are 12. Lactic acid . Creatinine yesterday was 0.8 and glucose was 146. No radiological studies. There are no cultures. IMPRESSION: 1. Questionable developing sepsis. 2. Appendicitis, status post appendectomy on the . 3. Status post gastric sleeve, February 2017. 4. Left shift, questionable secondary to dexamethasone versus . RECOMMENDATIONS: For now, we will continue the Zosyn. We will add fluconazole and vancomycin. Given her recent gastric sleeve procedure as well as exposure to population in the developmental delayed, there is potential for potential exposure resistant bacteria. Therefore, we will institute the vancomycin. She has not received any antimicrobials recently except around her gastric sleeve procedure. Follow up on the CT scan of abdomen and pelvis. Blood cultures have been ordered and we will follow up labs in the morning. Thank you for allowing me to participate in the patient's care. If you have any questions, please do not hesitate to contact me. GENE FRAZIER MD DR: MING/meena JOB#: [id number] / [id number]
--- NOTE | 2017-03-17 09:31 | PDOC ---
JORGE DEVI [employer] BUSINESS PROJECT MANAGER 03/17/17 0931: SURGICAL PROGRESS NOTE Subjective RLQ pain, severe yesterday, did settle down, but now increasing chills Vital Signs Vital Signs Date Time Temp Pulse Resp B/P (MAP) Pulse Ox O2 Delivery O2 Flow Rate FiO2 03/17/17 09:03 Nasal Cannula 03/17/17 06:54 16 96 2.0 03/17/17 03:00 99.1 93 118/65 (82) 99.1 General: Alert, Oriented X3, Cooperative, Other (acute discomfort) Abdomen: Soft, Other (RLQ TTP) Labs Laboratory Tests Test 03/16/17 04:28 03/17/17 05:05 03/17/17 06:15 White Blood Count 11.6 x10^3/uL (4.0-11.0) 9.6 x10^3/uL (4.0-11.0) Red Blood Count 4.54 x10^6/uL (3.50-5.40) 4.32 x10^6/uL (3.50-5.40) Hemoglobin 13.5 g/dL (12.0-15.5) 13.1 g/dL (12.0-15.5) Hematocrit 41.1 % (36.0-47.0) 39.0 % (36.0-47.0) Mean Corpuscular Volume 91 fL (79-100) 90 fL (79-100) Mean Corpuscular Hemoglobin 30 pg (25-35) 30 pg (25-35) Mean Corpuscular Hemoglobin Concent 33 g/dL (31-37) 34 g/dL (31-37) Red Cell Distribution Width 14.9 % (11.5-14.5) 15.1 % (11.5-14.5) Platelet Count 200 x10^3/uL (140-400) 189 x10^3/uL (140-400) Neutrophils (%) (Auto) 88 % (31-73) 81 % (31-73) Lymphocytes (%) (Auto) 6 % (24-48) 12 % (24-48) Monocytes (%) (Auto) 6 % (0-9) 7 % (0-9) Eosinophils (%) (Auto) 0 % (0-3) 0 % (0-3) Basophils (%) (Auto) 0 % (0-3) 0 % (0-3) Neutrophils # (Auto) 10.2 x10^3uL (1.8-7.7) 7.8 x10^3uL (1.8-7.7) Lymphocytes # (Auto) 0.6 x10^3/uL (1.0-4.8) 1.2 x10^3/uL (1.0-4.8) Monocytes # (Auto) 0.7 x10^3/uL (0.0-1.1) 0.6 x10^3/uL (0.0-1.1) Eosinophils # (Auto) 0.0 x10^3/uL (0.0-0.7) 0.0 x10^3/uL (0.0-0.7) Basophils # (Auto) 0.0 x10^3/uL (0.0-0.2) 0.0 x10^3/uL (0.0-0.2) Sodium Level 137 mmol/L (136-145) Potassium Level 4.0 mmol/L (3.5-5.1) Chloride Level 103 mmol/L (98-107) Carbon Dioxide Level 22 mmol/L (21-32) Anion Gap 12 (6-14) Blood Urea Nitrogen 5 mg/dL (7-20) Creatinine 0.8 mg/dL (0.6-1.0) Estimated GFR (Cockcroft-Gault) 85.4 Glucose Level 146 mg/dL (70-99) Calcium Level 9.0 mg/dL (8.5-10.1) Lactic Acid Level 0.8 mmol/L (0.4-2.0) Laboratory Tests Test 03/17/17 05:05 03/17/17 06:15 White Blood Count 9.6 x10^3/uL (4.0-11.0) Red Blood Count 4.32 x10^6/uL (3.50-5.40) Hemoglobin 13.1 g/dL (12.0-15.5) Hematocrit 39.0 % (36.0-47.0) Mean Corpuscular Volume 90 fL (79-100) Mean Corpuscular Hemoglobin 30 pg (25-35) Mean Corpuscular Hemoglobin Concent 34 g/dL (31-37) Red Cell Distribution Width 15.1 % (11.5-14.5) Platelet Count 189 x10^3/uL (140-400) Neutrophils (%) (Auto) 81 % (31-73) Lymphocytes (%) (Auto) 12 % (24-48) Monocytes (%) (Auto) 7 % (0-9) Eosinophils (%) (Auto) 0 % (0-3) Basophils (%) (Auto) 0 % (0-3) Neutrophils # (Auto) 7.8 x10^3uL (1.8-7.7) Lymphocytes # (Auto) 1.2 x10^3/uL (1.0-4.8) Monocytes # (Auto) 0.6 x10^3/uL (0.0-1.1) Eosinophils # (Auto) 0.0 x10^3/uL (0.0-0.7) Basophils # (Auto) 0.0 x10^3/uL (0.0-0.2) Lactic Acid Level 0.8 mmol/L (0.4-2.0) Problem List s/p lap appy, tip perforation chills, low grade fevers, tachy--sepsis-- ID following CT planned this AM Problems: POPPY TUBBS MD 03/17/17 1141: SURGICAL PROGRESS NOTE Assessment/Plan Pt reports pain better today, labs reassuring abd soft CT-no obvious abscess cont abx and fluid resuscitation d/w pt and pt's Problems: JORGE DEVI APRN Mar 17, 2017 09:31 POPPY TUBBS MD Mar 17, 2017 11:41
[2017-03-17 11:00] VITALS: BP 129/65
--- NOTE | 2017-03-17 11:03 | RAD ---
CT of the abdomen and pelvis with contrast, 03/17/2017: History: Recent appendectomy, possible sepsis Multidetector CT imaging was performed following oral and IV administration of contrast. Comparison is made to an outside study from 03/15/2017. Mild streaky atelectasis has developed in both lung bases. Again noted is a cystic structure along the right side of the heart compatible with a pericardial cyst. The gallbladder is surgically absent. No hepatic abnormality is seen. The pancreas shows no abnormality. The spleen is unremarkable. No renal abnormality is detected. There has been an interval appendectomy. There is moderate residual streaky increased density in the pericecal fat. There are bubbles of free air in this region presumably on a postoperative basis. No discrete fluid collection is seen to in this region to suggest abscess. The bowel loops are not dilated. There is a low density process between the rectum and uterus which is somewhat ill-defined secondary to streak artifacts. The appearance suggests complicated fluid, which has increased in volume since the previous study. No well-defined margins are seen to suggest abscess, although infection cannot be excluded. IMPRESSION: 1. Status post appendectomy with residual streaky inflammation and bubbles of gas in the pericecal region. 2. Increasing fluid collection in the cul-de-sac. CT follow-up may be useful in excluding developing abscess. 3. Mild bibasilar atelectasis. 4. 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 PQRS Compliance Statement: One or more of the following individualized dose reduction techniques were utilized for this examination: 1. Automated exposure control 2. Adjustment of the mA and/or kV according to patient size 3. Use of iterative reconstruction technique
[2017-03-17] MEDS: MULTIVITAMIN with MINERAL TABLET. PO SCH (11:24)
[2017-03-17] MEDS: PANTOPRAZOLE 40 MG TABLET.DR. PO SCH (11:24)
[2017-03-17] MEDS: ENOXAPARIN 40 MG/0.4 ML SYRINGE. SQ SCH ×2 (11:26→23:01)
[2017-03-17] MEDS: DOCUSATE SODIUM 100 MG CAPSULE. PO SCH ×2 (13:04→19:41)
--- NOTE | 2017-03-17 13:55 | PATHOLOGY ---
PATHOLOGY REPORT * * * * * * * * FINAL DIAGNOSIS: Appendix, laparoscopic appendectomy: - Acute and chronic appendicitis. - Serosal adhesions. COMMENT: There is no evidence of rupture. (SCHUYLERM:; 03/17/2017) REPORT ELECTRONICALLY SIGNED BY: Eric Del Valle M.D. DATE/TIME: 03/17/2017 13:54 * * * * * * * * GROSS PATHOLOGY: The specimen is received in formalin, labeled "Anoop Monte, appendix and consists of a 7.6 cm in length by 0.8-1.5 cm in diameter appendix with congested and indurated attached mesoappendix, 3.7 x 1.8 cm. There are thick hemorrhagic serosal adhesions seen distally. There is separation of the serosa from the underlying muscularis. The margin is inked black. The lumen is packed with malodorous pasty feculent material. No fecaliths are identified. The wall is grossly intact. Real Estate Photographer sections are submitted as A1. (JOANNE; 03/16/2017) INITIAL CPT CODE(S): A; 41634 Professional services performed [place] [address] Technical services performed by [facility] at [address] [place] [address], [facility] [address], [place] [address]. SPECIMEN(S) RECEIVED: A.Appendix CLINICAL HISTORY: Appendicitis PATIENT: ANOOP MONTE /AGE: 1206/07/1990 (Age: 26) PATIENT #: [id number] ALT CASE #: SPECIMEN COLLECTION DATE: 03/15/2017 SPECIMEN RECEIVED DATE: 03/16/2017 [facility] - [address] [place] [address] - PHONE: [phone] * * * END OF REPORT * * *
[2017-03-17] MEDS: ACETAMINOPHEN 325 MG TABLET. PO PRN (14:12)
--- NOTE | 2017-03-17 14:29 | PDOC ---
PROGRESS NOTES Chief Complaint Chief Complaint acute appendicitis with perforation s/p lap appendectomy 03/15 morbid obesity BMI 44 sepsis h/o gastric sleeve sx 02/2017 PLAN; fu with sx,ID consulted, add vanco, fluconazol gi soft diet as per sx ivf on zosyn since perforation labs tmr pain control dvt, gi ppx pt cont having abd pain with low garde t, abd CT done. History of Present Illness History of Present Illness ROS: no chills, sob or chest pain, low Fever T 99.9 NO BM but + flatus post op severe abd pain need iv morphine gi soft diet as per sx Vitals Vitals Vital Signs Date Time Temp Pulse Resp B/P (MAP) Pulse Ox O2 Delivery O2 Flow Rate FiO2 03/17/17 13:05 Nasal Cannula 03/17/17 11:00 99.9 118 20 129/65 (86) 97 2.0 99.9 Physical Exam General: Alert, Oriented X3, Cooperative, Other (acute discomfort) Heart: Regular rate, Normal S1, Normal S2 Lungs: Clear Abdomen: Soft, Other (RLQ TTP, + BS. ) Extremities: No clubbing, No cyanosis Skin: No rashes, No breakdown Labs LABS Laboratory Tests Test 03/17/17 05:05 03/17/17 06:15 White Blood Count 9.6 x10^3/uL (4.0-11.0) Red Blood Count 4.32 x10^6/uL (3.50-5.40) Hemoglobin 13.1 g/dL (12.0-15.5) Hematocrit 39.0 % (36.0-47.0) Mean Corpuscular Volume 90 fL (79-100) Mean Corpuscular Hemoglobin 30 pg (25-35) Mean Corpuscular Hemoglobin Concent 34 g/dL (31-37) Red Cell Distribution Width 15.1 % (11.5-14.5) Platelet Count 189 x10^3/uL (140-400) Neutrophils (%) (Auto) 81 % (31-73) Lymphocytes (%) (Auto) 12 % (24-48) Monocytes (%) (Auto) 7 % (0-9) Eosinophils (%) (Auto) 0 % (0-3) Basophils (%) (Auto) 0 % (0-3) Neutrophils # (Auto) 7.8 x10^3uL (1.8-7.7) Lymphocytes # (Auto) 1.2 x10^3/uL (1.0-4.8) Monocytes # (Auto) 0.6 x10^3/uL (0.0-1.1) Eosinophils # (Auto) 0.0 x10^3/uL (0.0-0.7) Basophils # (Auto) 0.0 x10^3/uL (0.0-0.2) Lactic Acid Level 0.8 mmol/L (0.4-2.0) Comment Review of Relevant I have reviewed the following items na (where applicable) has been applied. Labs Laboratory Tests Test 03/16/17 04:28 03/17/17 05:05 03/17/17 06:15 White Blood Count 11.6 x10^3/uL (4.0-11.0) 9.6 x10^3/uL (4.0-11.0) Red Blood Count 4.54 x10^6/uL (3.50-5.40) 4.32 x10^6/uL (3.50-5.40) Hemoglobin 13.5 g/dL (12.0-15.5) 13.1 g/dL (12.0-15.5) Hematocrit 41.1 % (36.0-47.0) 39.0 % (36.0-47.0) Mean Corpuscular Volume 91 fL (79-100) 90 fL (79-100) Mean Corpuscular Hemoglobin 30 pg (25-35) 30 pg (25-35) Mean Corpuscular Hemoglobin Concent 33 g/dL (31-37) 34 g/dL (31-37) Red Cell Distribution Width 14.9 % (11.5-14.5) 15.1 % (11.5-14.5) Platelet Count 200 x10^3/uL (140-400) 189 x10^3/uL (140-400) Neutrophils (%) (Auto) 88 % (31-73) 81 % (31-73) Lymphocytes (%) (Auto) 6 % (24-48) 12 % (24-48) Monocytes (%) (Auto) 6 % (0-9) 7 % (0-9) Eosinophils (%) (Auto) 0 % (0-3) 0 % (0-3) Basophils (%) (Auto) 0 % (0-3) 0 % (0-3) Neutrophils # (Auto) 10.2 x10^3uL (1.8-7.7) 7.8 x10^3uL (1.8-7.7) Lymphocytes # (Auto) 0.6 x10^3/uL (1.0-4.8) 1.2 x10^3/uL (1.0-4.8) Monocytes # (Auto) 0.7 x10^3/uL (0.0-1.1) 0.6 x10^3/uL (0.0-1.1) Eosinophils # (Auto) 0.0 x10^3/uL (0.0-0.7) 0.0 x10^3/uL (0.0-0.7) Basophils # (Auto) 0.0 x10^3/uL (0.0-0.2) 0.0 x10^3/uL (0.0-0.2) Sodium Level 137 mmol/L (136-145) Potassium Level 4.0 mmol/L (3.5-5.1) Chloride Level 103 mmol/L (98-107) Carbon Dioxide Level 22 mmol/L (21-32) Anion Gap 12 (6-14) Blood Urea Nitrogen 5 mg/dL (7-20) Creatinine 0.8 mg/dL (0.6-1.0) Estimated GFR (Cockcroft-Gault) 85.4 Glucose Level 146 mg/dL (70-99) Calcium Level 9.0 mg/dL (8.5-10.1) Lactic Acid Level 0.8 mmol/L (0.4-2.0) Laboratory Tests Test 03/17/17 05:05 03/17/17 06:15 White Blood Count 9.6 x10^3/uL (4.0-11.0) Red Blood Count 4.32 x10^6/uL (3.50-5.40) Hemoglobin 13.1 g/dL (12.0-15.5) Hematocrit 39.0 % (36.0-47.0) Mean Corpuscular Volume 90 fL (79-100) Mean Corpuscular Hemoglobin 30 pg (25-35) Mean Corpuscular Hemoglobin Concent 34 g/dL (31-37) Red Cell Distribution Width 15.1 % (11.5-14.5) Platelet Count 189 x10^3/uL (140-400) Neutrophils (%) (Auto) 81 % (31-73) Lymphocytes (%) (Auto) 12 % (24-48) Monocytes (%) (Auto) 7 % (0-9) Eosinophils (%) (Auto) 0 % (0-3) Basophils (%) (Auto) 0 % (0-3) Neutrophils # (Auto) 7.8 x10^3uL (1.8-7.7) Lymphocytes # (Auto) 1.2 x10^3/uL (1.0-4.8) Monocytes # (Auto) 0.6 x10^3/uL (0.0-1.1) Eosinophils # (Auto) 0.0 x10^3/uL (0.0-0.7) Basophils # (Auto) 0.0 x10^3/uL (0.0-0.2) Lactic Acid Level 0.8 mmol/L (0.4-2.0) Medications Current Medications Dexamethasone Sodium Phosphate (Decadron) 20 mg STK-MED ONCE .ROUTE ; Start 03/15/17 at 14:06; Stop 03/15/17 at 14:07; Status DC Ondansetron HCl (Zofran) 4 mg STK-MED ONCE .ROUTE ; Start 03/15/17 at 14:06; Stop 03/15/17 at 14:07; Status DC Propofol 20 ml @ As Directed STK-MED ONCE IV ; Start 03/15/17 at 14:06; Stop at 14:07; Status DC Lidocaine HCl (Lidocaine Pf 2% Vial) 5 ml STK-MED ONCE .ROUTE ; Start 03/15/17 at 14:06; Stop 03/15/17 at 14:07; Status DC Midazolam HCl (Versed) 2 mg STK-MED ONCE .ROUTE ; Start 03/15/17 at 14:06; Stop 03/15/17 at 14:07; Status DC Fentanyl Citrate (Fentanyl 2ml Vial) 100 mcg STK-MED ONCE .ROUTE ; Start at 14:06; Stop 03/15/17 at 14:07; Status DC Rocuronium Iola (Zemuron) 100 mg STK-MED ONCE .ROUTE ; Start 03/15/17 at 14: 07; Stop 03/15/17 at 14:08; Status DC Succinylcholine Chloride (Anectine) 200 mg STK-MED ONCE .ROUTE ; Start 03/15/17 at 14:07; Stop 03/15/17 at 14:08; Status DC Bupivacaine HCl/ Epinephrine Bitart (Marcaine-Epi 0.5%-[id number]) 50 ml STK-MED ONCE .ROUTE Last administered on 03/15/17 14:54; Start 03/15/17 at 13:07; Stop 03/15/17 at 14:08; Status DC Cefoxitin Sodium 2 gm/Sodium Chloride 100 ml @ 200 mls/hr 1X PREOP IV Last administered on 03/15/17 14:55; Start 03/15/17 at 16:00; Stop 03/16/17 at 14:41 ; Status DC Sodium Chloride 1,000 ml @ 125 mls/hr 1X ONCE IV Last administered on 14:15; Start 03/15/17 at 14:15; Stop 03/15/17 at 22:14; Status DC Cefoxitin Sodium 100 ml @ As Directed STK-MED ONCE IV ; Start 03/15/17 at 14:53 ; Stop 03/15/17 at 14:54; Status DC Enoxaparin Sodium (Lovenox 40mg Syringe) 40 mg Q24H SQ ; Start 03/15/17 at 15:30 ; Stop 03/16/17 at 14:38; Status DC Sodium Chloride (Normal Saline Flush) 3 ml QSHIFT PRN IV AFTER MEDS AND BLOOD DRAWS; Start 03/15/17 at 15:30 Ringer's Solution 1,000 ml @ 100 mls/hr Q10H IV Last administered on 07:19; Start 03/15/17 at 15:19 Acetaminophen/ Hydrocodone Bitart (Lortab 5/325) 1 tab PRN Q4HRS PRN PO MILD PAIN Last administered on 03/16/17 02:56; Start 03/15/17 at 15:30; Stop at 13:05; Status DC Ketorolac Tromethamine (Toradol) 15 mg PRN Q6HRS PRN IV PAIN; Start 03/15/17 at 15:30; Stop 03/16/17 at 09:05; Status DC Morphine Sulfate 2 mg PRN Q1HR PRN IV PAIN Last administered on 03/16/17 13:02 ; Start 03/15/17 at 15:30 Docusate Sodium (Colace) 100 mg BID PO Last administered on 03/17/17 13:04; Start 03/15/17 at 21:00 Ondansetron HCl (Zofran) 4 mg PRN Q6HRS PRN IV NAUESA, 1ST CHOICE Last administered on 03/17/17 03:53; Start 03/15/17 at 15:30 Piperacillin Sod/ Tazobactam Sod 3.375 gm/Sodium Chloride 50 ml @ 100 mls/hr Q6HRS IV Last administered on 03/17/17 06:56; Start 03/15/17 at 18:00 Morphine Sulfate 10 mg STK-MED ONCE .ROUTE ; Start 03/15/17 at 15:32; Stop 03/15 at 15:33; Status DC Ringer's Solution 1,000 ml @ 125 mls/hr Q8H IV Last administered on 03/16/17 00:51; Start 03/15/17 at 15:42; Stop 03/16/17 at 03:41; Status DC Lidocaine HCl (Xylocaine-Mpf 1% Vial) 0.5 ml 1X PRN PRN INJ IV START; Start at 15:45; Stop 03/16/17 at 15:44; Status DC Ringer's Solution 1,000 ml @ 125 mls/hr Q8H IV ; Start 03/15/17 at 15:42; Stop 03/15/17 at 21:41; Status DC Fentanyl Citrate (Fentanyl 2ml Vial) 25 mcg PRN Q5MIN PRN IV Acute Pain; Start 03/15/17 at 15:45; Stop 03/16/17 at 09:05; Status DC Fentanyl Citrate (Fentanyl 2ml Vial) 50 mcg PRN Q5MIN PRN IV Acute Pain Last administered on 03/15/17 15:58; Start 03/15/17 at 15:45; Stop 03/16/17 at 09:05 ; Status DC Morphine Sulfate 2 mg PRN Q10MIN PRN IV Mild Pain; Start 03/15/17 at 15:45; Stop 03/16/17 at 09:05; Status DC Morphine Sulfate 4 mg PRN Q10MIN PRN IV Moderate Pain; Start 03/15/17 at 15:45 ; Stop 03/16/17 at 09:05; Status DC Ondansetron HCl (Zofran) 4 mg PRN Q6HRS PRN IV Nausea, 1st Choice; Start at 15:45; Stop 03/16/17 at 09:05; Status DC Metoclopramide HCl (Reglan) 10 mg PRN Q6HRS PRN IV Nausea/Vomiting, 2nd Choice Last administered on 03/15/17t 18:49; Start 03/15/17 at 15:45; Stop 03/16/17 at 15:44; Status DC Diphenhydramine HCl (Benadryl) 12.5 mg PRN Q2HR PRN IV ITCHING; Start 03/15/17 at 15:45; Stop 03/16/17 at 15:44; Status DC Albuterol Sulfate (Ventolin Neb Soln) 2.5 mg PRN 1X PRN NEB Shortness of Breath , Wheezing; Start 03/15/17 at 15:45; Stop 03/16/17 at 15:44; Status DC Dexamethasone Sodium Phosphate (Decadron) 8 mg 1X PRN PRN IV 3RD CHOICE FOR NAUSEA; Start 03/15/17 at 15:45; Stop 03/16/17 at 15:44; Status DC Meperidine HCl (Demerol) 10 mg 1X PERIOP PRN IV SHIVERING; Start 03/15/17 at 15 :45; Stop 03/16/17 at 15:44; Status DC Meperidine HCl (Demerol) 15 mg 1X PERIOP PRN IV SHIVERING; Start 03/15/17 at 15 :45; Stop 03/16/17 at 15:44; Status DC Prochlorperazine Edisylate (Compazine) 10 mg STK-MED ONCE .ROUTE ; Start at 15:48; Stop 03/15/17 at 15:49; Status DC Prochlorperazine Maleate (Compazine) 5 mg 1X PACU PRN PO NAUSEA/VOMITING; Start 03/15/17 at 16:00 Hydromorphone HCl (Dilaudid) 0.5 mg PRN Q10MIN PRN IV PAIN Last administered on 03/15/17 16:52; Start 03/15/17 at 16:15; Stop 03/16/17 at 09:05; Status DC Acetaminophen/ Hydrocodone Bitart (Lortab 5/325) 2 tab PRN Q4HRS PRN PO PAIN Last administered on 03/16/17 10:16; Start 03/16/17 at 09:15; Stop 03/16/17 at 13:05; Status DC Multivitamins (Thera M Plus) 1 tab DAILY PO Last administered on 03/17/17 11: 24; Start 03/16/17 at 13:00 Pantoprazole Sodium (Protonix) 40 mg DAILYAC PO Last administered on 03/17/17 11:24; Start 03/16/17 at 13:00 Oxycodone/ Acetaminophen (Percocet 7.5/ 325) 1 tab PRN Q4HRS PRN PO PAIN Last administered on 03/17/17 06:54; Start 03/16/17 at 13:15 Morphine Sulfate 4 mg PRN Q2HR PRN IV PAIN Last administered on 03/17/17 13:05 ; Start 03/16/17 at 13:15 Enoxaparin Sodium (Lovenox 40mg Syringe) 40 mg Q12HR SQ Last administered on 11:26; Start 03/16/17 at 21:00 Iohexol (Omnipaque 300 Mg/ml) 75 ml 1X ONCE IV Last administered on 03/17/17 08:00; Start 03/17/17 at 08:00; Stop 03/17/17 at 08:01; Status DC Iohexol (Omnipaque 240 Mg/ml) 50 ml 1X ONCE PO Last administered on 03/17/17 08:00; Start 03/17/17 at 08:00; Stop 03/17/17 at 08:01; Status DC Info (Do NOT chart on this entry -- for MONITORING) 1 each PRN DAILY PRN MC SEE COMMENTS; Start 03/17/17 at 07:45; Stop 03/19/17 at 07:44 Sodium Chloride 1,000 ml @ 1,000 mls/hr 1X ONCE IV Last administered on 08:00; Start 03/17/17 at 08:00; Stop 03/17/17 at 08:59; Status DC Vancomycin HCl (Vanco Per Pharmacy) 1 each PRN DAILY PRN MC SEE COMMENTS; Start 03/17/17 at 08:00 Fluconazole/ Sodium Chloride 200 ml @ 100 mls/hr Q24H IV Last administered on 03/17/17 09:00; Start 03/17/17 at 09:00 Vancomycin HCl 2 gm/Sodium Chloride 500 ml @ 250 mls/hr 1X ONCE IV Last administered on 03/17/17 13:08; Start 03/17/17 at 09:00; Stop 03/17/17 at 10:59 ; Status DC Acetaminophen (Tylenol) 650 mg PRN Q6HRS PRN PO FEVER Last administered on 03/17 14:12; Start 03/17/17 at 08:15 Vancomycin HCl 2 gm/Sodium Chloride 500 ml @ 250 mls/hr Q8H IV ; Start at 22:00 Vancomycin HCl 1 each 1X ONCE MC ; Start 03/18/17 at 13:30; Stop 03/18/17 at 13 :31 Active Scripts Active Reported Multivitamins (Multivitamin) 1 Each Tablet 1 Tab PO DAILY Omeprazole 20 Mg Capsule.dr 1 Cap PO DAILY Vitals/I & O Vital Sign - Last 24 Hours 03/16/17 03/16/17 03/16/17 03/16/17 15:00 16:23 17:34 19:00 Temp 97.5 96.6 97.5 96.6 Pulse 71 81 Resp 20 18 B/P (MAP) 115/71 (86) 89/57 (68) Pulse Ox 95 95 O2 Delivery Nasal Cannula Nasal Cannula Nasal Cannula Nasal Cannula O2 Flow Rate 2.0 2.0 2.0 2.0 03/16/17 03/16/17 03/16/17 03/17/17 19:58 20:01 23:00 01:00 Temp 97.8 97.8 Pulse 83 Resp 18 18 16 B/P (MAP) 102/57 (72) Pulse Ox 95 97 96 O2 Delivery Nasal Cannula Nasal Cannula Nasal Cannula Nasal Cannula O2 Flow Rate 2.0 2.0 2.0 03/17/17 03/17/17 03/17/17 03/17/17 02:00 03:00 03:30 04:00 Temp 99.1 99.1 Pulse 93 Resp 16 18 16 B/P (MAP) 118/65 (82) Pulse Ox 96 96 96 O2 Delivery Nasal Cannula Room Air Nasal Cannula O2 Flow Rate 2.0 2.0 2.0 03/17/17 03/17/17 03/17/17 03/17/17 06:54 07:00 09:03 09:42 Temp 99.9 99.9 Pulse 111 Resp 16 18 B/P (MAP) 112/49 (70) Pulse Ox 96 93 O2 Delivery Nasal Cannula Nasal Cannula Nasal Cannula Nasal Cannula O2 Flow Rate 2.0 2.0 2.0 03/17/17 03/17/17 11:00 13:05 Temp 99.9 99.9 Pulse 118 Resp 20 B/P (MAP) 129/65 (86) Pulse Ox 97 O2 Delivery Nasal Cannula Nasal Cannula O2 Flow Rate 2.0 CHANEL HAWLEY MD Mar 17, 2017 14:29
[2017-03-17] MEDS: VANCOMYCIN PER PHARMACY MC PRN (14:32)
[2017-03-17 15:00] VITALS: BP 107/57
[2017-03-17 19:00] VITALS: BP 115/72
[2017-03-17] MEDS: VANCOMYCIN 2 GM in IV NORMAL SALINE 500ML BAG 500 ML IV SCH (22:59)
[2017-03-17 23:00] VITALS: BP 89/50
[2017-03-17] MEDS ORDERED: CALCIUM CARBONATE 500 MG TAB.CHEW PO PRN (23:45)
[2017-03-18] MEDS: MORPHINE SULFATE 4 MG/ML DISP.SYRIN. IV PRN ×4 (02:05→14:11)
[2017-03-18] MEDS: PIPERACILLIN/TAZOBACTAM 3.375 GM in IV NORMAL SALINE 50ML 50 ML IV SCH ×5 (02:06→18:41)
[2017-03-18 03:00] VITALS: BP 116/67
[2017-03-18] MEDS: IV RINGERS,LACTATED 1000ML 1,000 ML IV SCH ×2 (03:19→22:33)
[2017-03-18] MEDS: VANCOMYCIN 2 GM in IV NORMAL SALINE 500ML BAG 500 ML IV SCH ×2 (06:00→14:05)
[2017-03-18 06:04] LABS: BASO # 0.1 x10^3/uL (0.0-0.2); BASO % 1 % (0-3); EOS % 2 % (0-3); HEMATOCRIT 38.8 % (36.0-47.0); HEMOGLOBIN 12.9 g/dL (12.0-15.5); LYMPH # 1.4 x10^3/uL (1.0-4.8); LYMPH % 19 % (24-48); MEAN CORPUSCULAR HEMOGLOBIN 30 pg (25-35); MEAN CORPUSCULAR HGB CONC 33 g/dL (31-37); MEAN CORPUSCULAR VOLUME 91 fL (79-100); MONO % 8 % (0-9); NEUT % 71 % (31-73); PLATELET COUNT 196 x10^3/uL (140-400); RED BLOOD COUNT 4.28 x10^6/uL (3.50-5.40); RED CELL DISTRIBUTION WIDTH 15.1 % (11.5-14.5); WHITE BLOOD COUNT 7.6 x10^3/uL (4.0-11.0)
[2017-03-18 06:36] LABS: CALCIUM 8.5 mg/dL (8.5-10.1); CREATININE 0.9 mg/dL (0.6-1.0); GFR 74.6; POTASSIUM 3.2 mmol/L (3.5-5.1)
[2017-03-18 07:00] VITALS: BP 115/91
[2017-03-18] MEDS: oxyCODONE/APAP 7.5/325 1 TAB TABLET PO PRN ×4 (08:44→22:32)
[2017-03-18] MEDS: PANTOPRAZOLE 40 MG TABLET.DR. PO SCH (08:49)
[2017-03-18] MEDS: DOCUSATE SODIUM 100 MG CAPSULE. PO SCH ×2 (09:00→21:00)
--- NOTE | 2017-03-18 10:31 | PDOC ---
SURGICAL PROGRESS NOTE Subjective Pt reports feeling somewhat better, ruba some PO, but hurt too much to eat today , passing flatus and stools Vital Signs Vital Signs Date Time Temp Pulse Resp B/P (MAP) Pulse Ox O2 Delivery O2 Flow Rate FiO2 03/18/17 08:45 20 Room Air 03/18/17 07:00 99.9 69 115/91 (99) 96 2.0 99.9 General: Alert, Oriented X3, Cooperative, mild distress Abdomen: Soft, Other (incision c/d/i, mild TTP RLQ) Labs Laboratory Tests Test 03/17/17 05:05 03/17/17 06:15 03/18/17 05:30 White Blood Count 9.6 x10^3/uL (4.0-11.0) 7.6 x10^3/uL (4.0-11.0) Red Blood Count 4.32 x10^6/uL (3.50-5.40) 4.28 x10^6/uL (3.50-5.40) Hemoglobin 13.1 g/dL (12.0-15.5) 12.9 g/dL (12.0-15.5) Hematocrit 39.0 % (36.0-47.0) 38.8 % (36.0-47.0) Mean Corpuscular Volume 90 fL (79-100) 91 fL (79-100) Mean Corpuscular Hemoglobin 30 pg (25-35) 30 pg (25-35) Mean Corpuscular Hemoglobin Concent 34 g/dL (31-37) 33 g/dL (31-37) Red Cell Distribution Width 15.1 % (11.5-14.5) 15.1 % (11.5-14.5) Platelet Count 189 x10^3/uL (140-400) 196 x10^3/uL (140-400) Neutrophils (%) (Auto) 81 % (31-73) 71 % (31-73) Lymphocytes (%) (Auto) 12 % (24-48) 19 % (24-48) Monocytes (%) (Auto) 7 % (0-9) 8 % (0-9) Eosinophils (%) (Auto) 0 % (0-3) 2 % (0-3) Basophils (%) (Auto) 0 % (0-3) 1 % (0-3) Neutrophils # (Auto) 7.8 x10^3uL (1.8-7.7) 5.4 x10^3uL (1.8-7.7) Lymphocytes # (Auto) 1.2 x10^3/uL (1.0-4.8) 1.4 x10^3/uL (1.0-4.8) Monocytes # (Auto) 0.6 x10^3/uL (0.0-1.1) 0.6 x10^3/uL (0.0-1.1) Eosinophils # (Auto) 0.0 x10^3/uL (0.0-0.7) 0.2 x10^3/uL (0.0-0.7) Basophils # (Auto) 0.0 x10^3/uL (0.0-0.2) 0.1 x10^3/uL (0.0-0.2) Lactic Acid Level 0.8 mmol/L (0.4-2.0) Sodium Level 141 mmol/L (136-145) Potassium Level 3.2 mmol/L (3.5-5.1) Chloride Level 104 mmol/L (98-107) Carbon Dioxide Level 28 mmol/L (21-32) Anion Gap 9 (6-14) Blood Urea Nitrogen 6 mg/dL (7-20) Creatinine 0.9 mg/dL (0.6-1.0) Estimated GFR (Cockcroft-Gault) 74.6 Glucose Level 84 mg/dL (70-99) Calcium Level 8.5 mg/dL (8.5-10.1) Laboratory Tests Test 03/18/17 05:30 White Blood Count 7.6 x10^3/uL (4.0-11.0) Red Blood Count 4.28 x10^6/uL (3.50-5.40) Hemoglobin 12.9 g/dL (12.0-15.5) Hematocrit 38.8 % (36.0-47.0) Mean Corpuscular Volume 91 fL (79-100) Mean Corpuscular Hemoglobin 30 pg (25-35) Mean Corpuscular Hemoglobin Concent 33 g/dL (31-37) Red Cell Distribution Width 15.1 % (11.5-14.5) Platelet Count 196 x10^3/uL (140-400) Neutrophils (%) (Auto) 71 % (31-73) Lymphocytes (%) (Auto) 19 % (24-48) Monocytes (%) (Auto) 8 % (0-9) Eosinophils (%) (Auto) 2 % (0-3) Basophils (%) (Auto) 1 % (0-3) Neutrophils # (Auto) 5.4 x10^3uL (1.8-7.7) Lymphocytes # (Auto) 1.4 x10^3/uL (1.0-4.8) Monocytes # (Auto) 0.6 x10^3/uL (0.0-1.1) Eosinophils # (Auto) 0.2 x10^3/uL (0.0-0.7) Basophils # (Auto) 0.1 x10^3/uL (0.0-0.2) Sodium Level 141 mmol/L (136-145) Potassium Level 3.2 mmol/L (3.5-5.1) Chloride Level 104 mmol/L (98-107) Carbon Dioxide Level 28 mmol/L (21-32) Anion Gap 9 (6-14) Blood Urea Nitrogen 6 mg/dL (7-20) Creatinine 0.9 mg/dL (0.6-1.0) Estimated GFR (Cockcroft-Gault) 74.6 Glucose Level 84 mg/dL (70-99) Calcium Level 8.5 mg/dL (8.5-10.1) I have reviewed the following CT with some fluid (suspect irrigation) but no abscess or other concern Problem List s/p lap appendectomy appears to be improving with normalizing of vital signs cont abx and pain control ADAT Problems: POPPY TUBBS MD Mar 18, 2017 10:31
[2017-03-18] MEDS: MULTIVITAMIN with MINERAL TABLET. PO SCH (10:45)
[2017-03-18] MEDS: ENOXAPARIN 40 MG/0.4 ML SYRINGE. SQ SCH ×2 (10:48→21:28)
[2017-03-18 11:00] VITALS: BP 107/63
[2017-03-18] MEDS ORDERED: POTASSIUM CHLORIDE 20 MEQ TABLET.ER. PO ONE (12:45)
--- NOTE | 2017-03-18 13:46 | PDOC ---
Infectious Disease Note Subjective Subjective s/p PICC placement, c/o pain insertion site Having localized mid-abdominal stabbing-type pain, worse with movement + subjective fevers, chills and sweats + BM Denies N/V ROS ROS CV: Denies chest pain RESP: Denies shortness of air, cough Vital Sign Vital Signs Vital Signs Date Time Temp Pulse Resp B/P (MAP) Pulse Ox O2 Delivery O2 Flow Rate FiO2 03/18/17 11:00 99.4 105 18 107/63 (78) 88 99.4 03/18/17 09:44 Nasal Cannula 2.0 Physical Exam PHYSICAL EXAM GENERAL: Lying down, shivering HEENT: OC/OP clear LUNGS: Clear HEART: S1S2, no gallop, no murmur ABD: Obese, soft, incisions clean EXT: No edema, no cyanosis [employer]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 Labs Lab Laboratory Tests Test 03/18/17 05:30 White Blood Count 7.6 x10^3/uL (4.0-11.0) Red Blood Count 4.28 x10^6/uL (3.50-5.40) Hemoglobin 12.9 g/dL (12.0-15.5) Hematocrit 38.8 % (36.0-47.0) Mean Corpuscular Volume 91 fL (79-100) Mean Corpuscular Hemoglobin 30 pg (25-35) Mean Corpuscular Hemoglobin Concent 33 g/dL (31-37) Red Cell Distribution Width 15.1 % (11.5-14.5) Platelet Count 196 x10^3/uL (140-400) Neutrophils (%) (Auto) 71 % (31-73) Lymphocytes (%) (Auto) 19 % (24-48) Monocytes (%) (Auto) 8 % (0-9) Eosinophils (%) (Auto) 2 % (0-3) Basophils (%) (Auto) 1 % (0-3) Neutrophils # (Auto) 5.4 x10^3uL (1.8-7.7) Lymphocytes # (Auto) 1.4 x10^3/uL (1.0-4.8) Monocytes # (Auto) 0.6 x10^3/uL (0.0-1.1) Eosinophils # (Auto) 0.2 x10^3/uL (0.0-0.7) Basophils # (Auto) 0.1 x10^3/uL (0.0-0.2) Sodium Level 141 mmol/L (136-145) Potassium Level 3.2 mmol/L (3.5-5.1) Chloride Level 104 mmol/L (98-107) Carbon Dioxide Level 28 mmol/L (21-32) Anion Gap 9 (6-14) Blood Urea Nitrogen 6 mg/dL (7-20) Creatinine 0.9 mg/dL (0.6-1.0) Estimated GFR (Cockcroft-Gault) 74.6 Glucose Level 84 mg/dL (70-99) Calcium Level 8.5 mg/dL (8.5-10.1) CT abd/pelvis IMPRESSION: 1. Status post appendectomy with residual streaky inflammation and bubbles of gas in the pericecal region. 2. Increasing fluid collection in the cul-de-sac. CT follow-up may be useful in excluding developing abscess. 3. Mild bibasilar atelectasis. 4. 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 Micro BLOOD CULTURE Preliminary NO GROWTH AFTER 1 DAY Objective Assessment ? developing sepsis Appendicitis s/p appendectomy 03/15 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 s/p Dexamethasone 03/15 vs reactive Plan Plan of Care Cont vanc, Zosyn and Fluconazole (recent surgery and exposure to population at risk for resistance) Monitor temp and WBC f/u cultures D/w Sig other in presence of patient Attending Co-Sign The patient was seen and interviewed as well as examined at the bedside. The chart was reviewed. The case was discussed. Agree with the plan of care. BHANU PERDOMO APRN Mar 18, 2017 13:46 MELISSA VILLANUEVA MD Mar 18, 2017 13:50
[2017-03-18] MEDS: VANCOMYCIN PER PHARMACY MC PRN (14:24)
--- NOTE | 2017-03-18 14:48 | PDOC ---
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 History of Present Illness History of Present Illness ROS: no chills, sob or chest pain, low Fever T 99.9 +bm + flatus post op severe abd pain need iv morphine gi soft diet as per sx Vitals Vitals Vital Signs Date Time Temp Pulse Resp B/P (MAP) Pulse Ox O2 Delivery O2 Flow Rate FiO2 03/18/17 14:11 20 Nasal Cannula 2.0 03/18/17 11:00 99.4 105 107/63 (78) 88 99.4 Physical Exam General: Alert, Oriented X3, Cooperative, mild distress Heart: Regular rate, Normal S1, Normal S2 Lungs: Clear Abdomen: Soft, Other (incision c/d/i, mild TTP RLQ) Extremities: No clubbing, No cyanosis Skin: No rashes, No breakdown Labs LABS Laboratory Tests Test 03/18/17 05:30 White Blood Count 7.6 x10^3/uL (4.0-11.0) Red Blood Count 4.28 x10^6/uL (3.50-5.40) Hemoglobin 12.9 g/dL (12.0-15.5) Hematocrit 38.8 % (36.0-47.0) Mean Corpuscular Volume 91 fL (79-100) Mean Corpuscular Hemoglobin 30 pg (25-35) Mean Corpuscular Hemoglobin Concent 33 g/dL (31-37) Red Cell Distribution Width 15.1 % (11.5-14.5) Platelet Count 196 x10^3/uL (140-400) Neutrophils (%) (Auto) 71 % (31-73) Lymphocytes (%) (Auto) 19 % (24-48) Monocytes (%) (Auto) 8 % (0-9) Eosinophils (%) (Auto) 2 % (0-3) Basophils (%) (Auto) 1 % (0-3) Neutrophils # (Auto) 5.4 x10^3uL (1.8-7.7) Lymphocytes # (Auto) 1.4 x10^3/uL (1.0-4.8) Monocytes # (Auto) 0.6 x10^3/uL (0.0-1.1) Eosinophils # (Auto) 0.2 x10^3/uL (0.0-0.7) Basophils # (Auto) 0.1 x10^3/uL (0.0-0.2) Sodium Level 141 mmol/L (136-145) Potassium Level 3.2 mmol/L (3.5-5.1) Chloride Level 104 mmol/L (98-107) Carbon Dioxide Level 28 mmol/L (21-32) Anion Gap 9 (6-14) Blood Urea Nitrogen 6 mg/dL (7-20) Creatinine 0.9 mg/dL (0.6-1.0) Estimated GFR (Cockcroft-Gault) 74.6 Glucose Level 84 mg/dL (70-99) Calcium Level 8.5 mg/dL (8.5-10.1) Comment Review of Relevant I have reviewed the following items na (where applicable) has been applied. Labs Laboratory Tests Test 03/17/17 05:05 03/17/17 06:15 03/18/17 05:30 White Blood Count 9.6 x10^3/uL (4.0-11.0) 7.6 x10^3/uL (4.0-11.0) Red Blood Count 4.32 x10^6/uL (3.50-5.40) 4.28 x10^6/uL (3.50-5.40) Hemoglobin 13.1 g/dL (12.0-15.5) 12.9 g/dL (12.0-15.5) Hematocrit 39.0 % (36.0-47.0) 38.8 % (36.0-47.0) Mean Corpuscular Volume 90 fL (79-100) 91 fL (79-100) Mean Corpuscular Hemoglobin 30 pg (25-35) 30 pg (25-35) Mean Corpuscular Hemoglobin Concent 34 g/dL (31-37) 33 g/dL (31-37) Red Cell Distribution Width 15.1 % (11.5-14.5) 15.1 % (11.5-14.5) Platelet Count 189 x10^3/uL (140-400) 196 x10^3/uL (140-400) Neutrophils (%) (Auto) 81 % (31-73) 71 % (31-73) Lymphocytes (%) (Auto) 12 % (24-48) 19 % (24-48) Monocytes (%) (Auto) 7 % (0-9) 8 % (0-9) Eosinophils (%) (Auto) 0 % (0-3) 2 % (0-3) Basophils (%) (Auto) 0 % (0-3) 1 % (0-3) Neutrophils # (Auto) 7.8 x10^3uL (1.8-7.7) 5.4 x10^3uL (1.8-7.7) Lymphocytes # (Auto) 1.2 x10^3/uL (1.0-4.8) 1.4 x10^3/uL (1.0-4.8) Monocytes # (Auto) 0.6 x10^3/uL (0.0-1.1) 0.6 x10^3/uL (0.0-1.1) Eosinophils # (Auto) 0.0 x10^3/uL (0.0-0.7) 0.2 x10^3/uL (0.0-0.7) Basophils # (Auto) 0.0 x10^3/uL (0.0-0.2) 0.1 x10^3/uL (0.0-0.2) Lactic Acid Level 0.8 mmol/L (0.4-2.0) Sodium Level 141 mmol/L (136-145) Potassium Level 3.2 mmol/L (3.5-5.1) Chloride Level 104 mmol/L (98-107) Carbon Dioxide Level 28 mmol/L (21-32) Anion Gap 9 (6-14) Blood Urea Nitrogen 6 mg/dL (7-20) Creatinine 0.9 mg/dL (0.6-1.0) Estimated GFR (Cockcroft-Gault) 74.6 Glucose Level 84 mg/dL (70-99) Calcium Level 8.5 mg/dL (8.5-10.1) Laboratory Tests Test 03/18/17 05:30 White Blood Count 7.6 x10^3/uL (4.0-11.0) Red Blood Count 4.28 x10^6/uL (3.50-5.40) Hemoglobin 12.9 g/dL (12.0-15.5) Hematocrit 38.8 % (36.0-47.0) Mean Corpuscular Volume 91 fL (79-100) Mean Corpuscular Hemoglobin 30 pg (25-35) Mean Corpuscular Hemoglobin Concent 33 g/dL (31-37) Red Cell Distribution Width 15.1 % (11.5-14.5) Platelet Count 196 x10^3/uL (140-400) Neutrophils (%) (Auto) 71 % (31-73) Lymphocytes (%) (Auto) 19 % (24-48) Monocytes (%) (Auto) 8 % (0-9) Eosinophils (%) (Auto) 2 % (0-3) Basophils (%) (Auto) 1 % (0-3) Neutrophils # (Auto) 5.4 x10^3uL (1.8-7.7) Lymphocytes # (Auto) 1.4 x10^3/uL (1.0-4.8) Monocytes # (Auto) 0.6 x10^3/uL (0.0-1.1) Eosinophils # (Auto) 0.2 x10^3/uL (0.0-0.7) Basophils # (Auto) 0.1 x10^3/uL (0.0-0.2) Sodium Level 141 mmol/L (136-145) Potassium Level 3.2 mmol/L (3.5-5.1) Chloride Level 104 mmol/L (98-107) Carbon Dioxide Level 28 mmol/L (21-32) Anion Gap 9 (6-14) Blood Urea Nitrogen 6 mg/dL (7-20) Creatinine 0.9 mg/dL (0.6-1.0) Estimated GFR (Cockcroft-Gault) 74.6 Glucose Level 84 mg/dL (70-99) Calcium Level 8.5 mg/dL (8.5-10.1) Microbiology 03/17/17 Blood Culture - Preliminary, Resulted NO GROWTH AFTER 1 DAY Medications Current Medications Dexamethasone Sodium Phosphate (Decadron) 20 mg STK-MED ONCE .ROUTE ; Start 03/15/17 at 14:06; Stop 03/15/17 at 14:07; Status DC Ondansetron HCl (Zofran) 4 mg STK-MED ONCE .ROUTE ; Start 03/15/17 at 14:06; Stop 03/15/17 at 14:07; Status DC Propofol 20 ml @ As Directed STK-MED ONCE IV ; Start 03/15/17 at 14:06; Stop at 14:07; Status DC Lidocaine HCl (Lidocaine Pf 2% Vial) 5 ml STK-MED ONCE .ROUTE ; Start 03/15/17 at 14:06; Stop 03/15/17 at 14:07; Status DC Midazolam HCl (Versed) 2 mg STK-MED ONCE .ROUTE ; Start 03/15/17 at 14:06; Stop 03/15/17 at 14:07; Status DC Fentanyl Citrate (Fentanyl 2ml Vial) 100 mcg STK-MED ONCE .ROUTE ; Start at 14:06; Stop 03/15/17 at 14:07; Status DC Rocuronium Sterling (Zemuron) 100 mg STK-MED ONCE .ROUTE ; Start 03/15/17 at 14: 07; Stop 03/15/17 at 14:08; Status DC Succinylcholine Chloride (Anectine) 200 mg STK-MED ONCE .ROUTE ; Start 03/15/17 at 14:07; Stop 03/15/17 at 14:08; Status DC Bupivacaine HCl/ Epinephrine Bitart (Marcaine-Epi 0.5%-[id number]) 50 ml STK-MED ONCE .ROUTE Last administered on 03/15/17 14:54; Start 03/15/17 at 13:07; Stop 03/15/17 at 14:08; Status DC Cefoxitin Sodium 2 gm/Sodium Chloride 100 ml @ 200 mls/hr 1X PREOP IV Last administered on 03/15/17 14:55; Start 03/15/17 at 16:00; Stop 03/16/17 at 14:41 ; Status DC Sodium Chloride 1,000 ml @ 125 mls/hr 1X ONCE IV Last administered on 14:15; Start 03/15/17 at 14:15; Stop 03/15/17 at 22:14; Status DC Cefoxitin Sodium 100 ml @ As Directed STK-MED ONCE IV ; Start 03/15/17 at 14:53 ; Stop 03/15/17 at 14:54; Status DC Enoxaparin Sodium (Lovenox 40mg Syringe) 40 mg Q24H SQ ; Start 03/15/17 at 15:30 ; Stop 03/16/17 at 14:38; Status DC Sodium Chloride (Normal Saline Flush) 3 ml QSHIFT PRN IV AFTER MEDS AND BLOOD DRAWS; Start 03/15/17 at 15:30 Ringer's Solution 1,000 ml @ 75 mls/hr [id number] IV Last administered on 17:19; Start 03/15/17 at 15:19 Acetaminophen/ Hydrocodone Bitart (Lortab 5/325) 1 tab PRN Q4HRS PRN PO MILD PAIN Last administered on 03/16/17 02:56; Start 03/15/17 at 15:30; Stop at 13:05; Status DC Ketorolac Tromethamine (Toradol) 15 mg PRN Q6HRS PRN IV PAIN; Start 03/15/17 at 15:30; Stop 03/16/17 at 09:05; Status DC Morphine Sulfate 2 mg PRN Q1HR PRN IV PAIN Last administered on 03/16/17 13:02 ; Start 03/15/17 at 15:30 Docusate Sodium (Colace) 100 mg BID PO Last administered on 03/17/17 13:04; Start 03/15/17 at 21:00 Ondansetron HCl (Zofran) 4 mg PRN Q6HRS PRN IV NAUESA, 1ST CHOICE Last administered on 03/17/17 03:53; Start 03/15/17 at 15:30 Piperacillin Sod/ Tazobactam Sod 3.375 gm/Sodium Chloride 50 ml @ 100 mls/hr Q6HRS IV Last administered on 03/18/17 06:10; Start 03/15/17 at 18:00 Morphine Sulfate 10 mg STK-MED ONCE .ROUTE ; Start 03/15/17 at 15:32; Stop 03/15 at 15:33; Status DC Ringer's Solution 1,000 ml @ 125 mls/hr Q8H IV Last administered on 03/16/17 00:51; Start 03/15/17 at 15:42; Stop 03/16/17 at 03:41; Status DC Lidocaine HCl (Xylocaine-Mpf 1% Vial) 0.5 ml 1X PRN PRN INJ IV START; Start at 15:45; Stop 03/16/17 at 15:44; Status DC Ringer's Solution 1,000 ml @ 125 mls/hr Q8H IV ; Start 03/15/17 at 15:42; Stop 03/15/17 at 21:41; Status DC Fentanyl Citrate (Fentanyl 2ml Vial) 25 mcg PRN Q5MIN PRN IV Acute Pain; Start 03/15/17 at 15:45; Stop 03/16/17 at 09:05; Status DC Fentanyl Citrate (Fentanyl 2ml Vial) 50 mcg PRN Q5MIN PRN IV Acute Pain Last administered on 03/15/17 15:58; Start 03/15/17 at 15:45; Stop 03/16/17 at 09:05 ; Status DC Morphine Sulfate 2 mg PRN Q10MIN PRN IV Mild Pain; Start 03/15/17 at 15:45; Stop 03/16/17 at 09:05; Status DC Morphine Sulfate 4 mg PRN Q10MIN PRN IV Moderate Pain; Start 03/15/17 at 15:45 ; Stop 03/16/17 at 09:05; Status DC Ondansetron HCl (Zofran) 4 mg PRN Q6HRS PRN IV Nausea, 1st Choice; Start at 15:45; Stop 03/16/17 at 09:05; Status DC Metoclopramide HCl (Reglan) 10 mg PRN Q6HRS PRN IV Nausea/Vomiting, 2nd Choice Last administered on 03/15/17 18:49; Start 03/15/17 at 15:45; Stop 03/16/17 at 15:44; Status DC Diphenhydramine HCl (Benadryl) 12.5 mg PRN Q2HR PRN IV ITCHING; Start 03/15/17 at 15:45; Stop 03/16/17 at 15:44; Status DC Albuterol Sulfate (Ventolin Neb Soln) 2.5 mg PRN 1X PRN NEB Shortness of Breath , Wheezing; Start 03/15/17 at 15:45; Stop 03/16/17 at 15:44; Status DC Dexamethasone Sodium Phosphate (Decadron) 8 mg 1X PRN PRN IV 3RD CHOICE FOR NAUSEA; Start 03/15/17 at 15:45; Stop 03/16/17 at 15:44; Status DC Meperidine HCl (Demerol) 10 mg 1X PERIOP PRN IV SHIVERING; Start 03/15/17 at 15 :45; Stop 03/16/17 at 15:44; Status DC Meperidine HCl (Demerol) 15 mg 1X PERIOP PRN IV SHIVERING; Start 03/15/17 at 15 :45; Stop 03/16/17 at 15:44; Status DC Prochlorperazine Edisylate (Compazine) 10 mg STK-MED ONCE .ROUTE ; Start at 15:48; Stop 03/15/17 at 15:49; Status DC Prochlorperazine Maleate (Compazine) 5 mg 1X PACU PRN PO NAUSEA/VOMITING; Start 03/15/17 at 16:00 Hydromorphone HCl (Dilaudid) 0.5 mg PRN Q10MIN PRN IV PAIN Last administered on 03/15/17 16:52; Start 03/15/17 at 16:15; Stop 03/16/17 at 09:05; Status DC Acetaminophen/ Hydrocodone Bitart (Lortab 5/325) 2 tab PRN Q4HRS PRN PO PAIN Last administered on 03/16/17 10:16; Start 03/16/17 at 09:15; Stop 03/16/17 at 13:05; Status DC Multivitamins (Thera M Plus) 1 tab DAILY PO Last administered on 03/18/17 10: 45; Start 03/16/17 at 13:00 Pantoprazole Sodium (Protonix) 40 mg DAILYAC PO Last administered on 03/18/17 08:49; Start 03/16/17 at 13:00 Oxycodone/ Acetaminophen (Percocet 7.5/ 325) 1 tab PRN Q4HRS PRN PO PAIN Last administered on 03/18/17 14:11; Start 03/16/17 at 13:15 Morphine Sulfate 4 mg PRN Q2HR PRN IV PAIN Last administered on 03/18/17 14:11 ; Start 03/16/17 at 13:15 Enoxaparin Sodium (Lovenox 40mg Syringe) 40 mg Q12HR SQ Last administered on 10:48; Start 03/16/17 at 21:00 Iohexol (Omnipaque 300 Mg/ml) 75 ml 1X ONCE IV Last administered on 03/17/17 08:00; Start 03/17/17 at 08:00; Stop 03/17/17 at 08:01; Status DC Iohexol (Omnipaque 240 Mg/ml) 50 ml 1X ONCE PO Last administered on 03/17/17 08:00; Start 03/17/17 at 08:00; Stop 03/17/17 at 08:01; Status DC Info (Do NOT chart on this entry -- for MONITORING) 1 each PRN DAILY PRN MC SEE COMMENTS; Start 03/17/17 at 07:45; Stop 03/19/17 at 07:44 Sodium Chloride 1,000 ml @ 1,000 mls/hr 1X ONCE IV Last administered on 08:00; Start 03/17/17 at 08:00; Stop 03/17/17 at 08:59; Status DC Vancomycin HCl (Vanco Per Pharmacy) 1 each PRN DAILY PRN MC SEE COMMENTS Last administered on 03/18/17 14:24; Start 03/17/17 at 08:00 Fluconazole/ Sodium Chloride 200 ml @ 100 mls/hr Q24H IV Last administered on 03/17/17 09:00; Start 03/17/17 at 09:00 Vancomycin HCl 2 gm/Sodium Chloride 500 ml @ 250 mls/hr 1X ONCE IV Last administered on 03/17/17 13:08; Start 03/17/17 at 09:00; Stop 03/17/17 at 10:59 ; Status DC Acetaminophen (Tylenol) 650 mg PRN Q6HRS PRN PO FEVER Last administered on 03/17 14:12; Start 03/17/17 at 08:15 Vancomycin HCl 2 gm/Sodium Chloride 500 ml @ 250 mls/hr Q8H IV Last administered on 03/18/17 14:05; Start 03/17/17 at 22:00 Vancomycin HCl 1 each 1X ONCE MC ; Start 03/18/17 at 13:30; Stop 03/18/17 at 13 :31; Status DC Calcium Carbonate/ Glycine (Tums) 1,000 mg PRN Q4HRS PRN PO INDIGESTION Last administered on 03/17/17t 23:57; Start 03/17/17 at 23:45 Potassium Chloride (Klor-Con) 40 meq 1X ONCE PO Last administered on t 14:14; Start 03/18/17 at 12:45; Stop 03/18/17 at 12:46; Status DC Vancomycin HCl 1 each 1X ONCE MC ; Start 03/19/17 at 05:30; Stop 03/19/17 at 05 :31 Active Scripts Active Reported Multivitamins (Multivitamin) 1 Each Tablet 1 Tab PO DAILY Omeprazole 20 Mg Capsule.dr 1 Cap PO DAILY Vitals/I & O Vital Sign - Last 24 Hours 03/17/17 03/17/17 03/17/17 03/17/17 15:00 16:35 17:59 19:00 Temp 99.0 99.2 99.0 99.2 Pulse 116 100 Resp 18 19 B/P (MAP) 107/57 (74) 115/72 (86) Pulse Ox 92 97 O2 Delivery Nasal Cannula Nasal Cannula Nasal Cannula Nasal Cannula O2 Flow Rate 2.0 2.0 2.0 03/17/17 03/17/17 03/17/17 03/18/17 20:10 22:13 23:00 02:05 Temp 98.8 98.8 Pulse 90 Resp 20 19 20 B/P (MAP) 89/50 (63) Pulse Ox 97 O2 Delivery Nasal Cannula Room Air Nasal Cannula Room Air O2 Flow Rate 2.0 2.0 03/18/17 03/18/17 03/18/17 03/18/17 03:00 06:10 06:40 07:00 Temp 99.1 99.9 99.1 99.9 Pulse 80 69 Resp 19 20 18 B/P (MAP) 116/67 (83) 115/91 (99) Pulse Ox 99 96 O2 Delivery Nasal Cannula Room Air Nasal Cannula O2 Flow Rate 2.0 2.0 2.0 03/18/17 03/18/17 03/18/17 03/18/17 08:00 08:44 08:45 09:15 Resp 20 20 20 O2 Delivery Nasal Cannula Room Air Room Air Nasal Cannula O2 Flow Rate 2.0 03/18/17 03/18/17 03/18/17 03/18/17 09:44 11:00 14:11 14:11 Temp 99.4 99.4 Pulse 105 Resp 20 18 20 20 B/P (MAP) 107/63 (78) Pulse Ox 88 O2 Delivery Nasal Cannula Nasal Cannula Nasal Cannula O2 Flow Rate 2.0 2.0 2.0 CHANEL HAWLEY MD Mar 18, 2017 14:48
[2017-03-18 15:00] VITALS: BP 120/75
[2017-03-18] MEDS: FLUCONAZOLE 400MG/200ML PREMIX 200 ML IV SCH (17:08)
[2017-03-18 19:43] VITALS: BP 113/66
[2017-03-18 23:59] VITALS: BP 111/66
[2017-03-19] MEDS: PIPERACILLIN/TAZOBACTAM 3.375 GM in IV NORMAL SALINE 50ML 50 ML IV SCH ×4 (00:51→18:29)
[2017-03-19] MEDS: VANCOMYCIN 2 GM in IV NORMAL SALINE 500ML BAG 500 ML IV SCH ×2 (00:51→05:41)
[2017-03-19] MEDS: IV RINGERS,LACTATED 1000ML 1,000 ML IV SCH ×2 (02:53→18:30)
[2017-03-19] MEDS: oxyCODONE/APAP 7.5/325 1 TAB TABLET PO PRN ×3 (03:14→18:37)
[2017-03-19 03:59] VITALS: BP 104/62
[2017-03-19 05:42] LABS: BASO % 1 % (0-3); EOS % 4 % (0-3); HEMATOCRIT 33.6 % (36.0-47.0); HEMOGLOBIN 11.3 g/dL (12.0-15.5); LYMPH # 1.3 x10^3/uL (1.0-4.8); LYMPH % 18 % (24-48); MEAN CORPUSCULAR HEMOGLOBIN 31 pg (25-35); MEAN CORPUSCULAR HGB CONC 34 g/dL (31-37); MEAN CORPUSCULAR VOLUME 91 fL (79-100); MONO % 12 % (0-9); NEUT % 65 % (31-73); PLATELET COUNT 141 x10^3/uL (140-400); RED CELL DISTRIBUTION WIDTH 15.4 % (11.5-14.5); WHITE BLOOD COUNT 6.9 x10^3/uL (4.0-11.0)
[2017-03-19 06:17] LABS: CALCIUM 8.1 mg/dL (8.5-10.1); GFR 29.7; POTASSIUM 3.6 mmol/L (3.5-5.1)
[2017-03-19 07:00] VITALS: BP 108/75
[2017-03-19] MEDS: DOCUSATE SODIUM 100 MG CAPSULE. PO SCH ×2 (09:00→20:53)
[2017-03-19] MEDS: ONDANSETRON PF 4 MG/2 ML VIAL. IV PRN (10:03)
[2017-03-19 11:00] VITALS: BP 108/64
[2017-03-19] MEDS: MULTIVITAMIN with MINERAL TABLET. PO SCH (11:07)
[2017-03-19] MEDS: PANTOPRAZOLE 40 MG TABLET.DR. PO SCH (11:07)
[2017-03-19] MEDS: ENOXAPARIN 40 MG/0.4 ML SYRINGE. SQ SCH ×2 (11:07→20:53)
[2017-03-19] MEDS: FLUCONAZOLE 400MG/200ML PREMIX 200 ML IV SCH (11:10)
--- NOTE | 2017-03-19 11:10 | PDOC ---
Infectious Disease Note Subjective Subjective Feeling better today, No fever since yesterday no further chills or sweats Abdominal pain controlled Some nausea w/ a salty taste in mouth earlier Tolerated breakfast well ROS ROS CV: Denies chest pain RESP: Denies shortness of air, cough GI: Denies diarrhea Vital Sign Vital Signs Vital Signs Date Time Temp Pulse Resp B/P (MAP) Pulse Ox O2 Delivery O2 Flow Rate FiO2 03/19/17 07:00 97.7 81 18 108/75 (86) 91 Room Air 97.7 03/18/17 22:32 2.0 Physical Exam PHYSICAL EXAM GENERAL: Up in chair, relaxed appearance, NAD HEENT: OC/OP clear LUNGS: Clear HEART: S1S2, no gallop, no murmur ABD: Obese, soft, incisions clean EXT: No edema, no cyanosis FRONT END UI DEVELOPER: Alert, 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 Labs Lab Laboratory Tests Test 03/19/17 05:30 White Blood Count 6.9 x10^3/uL (4.0-11.0) Red Blood Count 3.70 x10^6/uL (3.50-5.40) Hemoglobin 11.3 g/dL (12.0-15.5) Hematocrit 33.6 % (36.0-47.0) Mean Corpuscular Volume 91 fL (79-100) Mean Corpuscular Hemoglobin 31 pg (25-35) Mean Corpuscular Hemoglobin Concent 34 g/dL (31-37) Red Cell Distribution Width 15.4 % (11.5-14.5) Platelet Count 141 x10^3/uL (140-400) Neutrophils (%) (Auto) 65 % (31-73) Lymphocytes (%) (Auto) 18 % (24-48) Monocytes (%) (Auto) 12 % (0-9) Eosinophils (%) (Auto) 4 % (0-3) Basophils (%) (Auto) 1 % (0-3) Neutrophils # (Auto) 4.4 x10^3uL (1.8-7.7) Lymphocytes # (Auto) 1.3 x10^3/uL (1.0-4.8) Monocytes # (Auto) 0.8 x10^3/uL (0.0-1.1) Eosinophils # (Auto) 0.3 x10^3/uL (0.0-0.7) Basophils # (Auto) 0.0 x10^3/uL (0.0-0.2) Sodium Level 142 mmol/L (136-145) Potassium Level 3.6 mmol/L (3.5-5.1) Chloride Level 107 mmol/L (98-107) Carbon Dioxide Level 24 mmol/L (21-32) Anion Gap 11 (6-14) Blood Urea Nitrogen 9 mg/dL (7-20) Creatinine 2.0 mg/dL (0.6-1.0) Estimated GFR (Cockcroft-Gault) 29.7 Glucose Level 81 mg/dL (70-99) Calcium Level 8.1 mg/dL (8.5-10.1) Micro BLOOD CULTURE Preliminary NO GROWTH AFTER 2 DAYS Objective Assessment ? developing sepsis Appendicitis s/p appendectomy 03/15 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 s/p Dexamethasone 03/15 vs reactive EMILY Plan Plan of Care D/c vanc Continue Zosyn and Fluconazole Monitor temp, WBC and renal function f/u cultures D/w Sig other in presence of patient Attending Co-Sign The patient was seen and interviewed as well as examined at the bedside. The chart was reviewed. The case was discussed. Agree with the plan of care. vanc d/denny, d/w dr Quiñonez, pt feeling better, if cr better tomorrow, then d/c on po antibiotics BHANU PERDOMO APRN Mar 19, 2017 11:10 MELISSA VILLANUEVA MD Mar 19, 2017 13:43
[2017-03-19] MEDS ORDERED: IV NORMAL SALINE 1000ML BAG 1,000 ML IV ONE (12:15)
[2017-03-19 15:00] VITALS: BP 135/98
--- NOTE | 2017-03-19 15:03 | PDOC ---
SURGICAL PROGRESS NOTE Subjective Pt reports decreased abd pain, nausea, but resolved, ruba some PO Vital Signs Vital Signs Date Time Temp Pulse Resp B/P (MAP) Pulse Ox O2 Delivery O2 Flow Rate FiO2 03/19/17 12:08 20 Room Air 03/19/17 11:00 97.8 92 108/64 (79) 94 97.8 03/18/17 22:32 2.0 General: Alert, Oriented X3, Cooperative, No acute distress Abdomen: Soft, No tenderness Labs Laboratory Tests Test 03/18/17 05:30 03/19/17 05:30 White Blood Count 7.6 x10^3/uL (4.0-11.0) 6.9 x10^3/uL (4.0-11.0) Red Blood Count 4.28 x10^6/uL (3.50-5.40) 3.70 x10^6/uL (3.50-5.40) Hemoglobin 12.9 g/dL (12.0-15.5) 11.3 g/dL (12.0-15.5) Hematocrit 38.8 % (36.0-47.0) 33.6 % (36.0-47.0) Mean Corpuscular Volume 91 fL (79-100) 91 fL (79-100) Mean Corpuscular Hemoglobin 30 pg (25-35) 31 pg (25-35) Mean Corpuscular Hemoglobin Concent 33 g/dL (31-37) 34 g/dL (31-37) Red Cell Distribution Width 15.1 % (11.5-14.5) 15.4 % (11.5-14.5) Platelet Count 196 x10^3/uL (140-400) 141 x10^3/uL (140-400) Neutrophils (%) (Auto) 71 % (31-73) 65 % (31-73) Lymphocytes (%) (Auto) 19 % (24-48) 18 % (24-48) Monocytes (%) (Auto) 8 % (0-9) 12 % (0-9) Eosinophils (%) (Auto) 2 % (0-3) 4 % (0-3) Basophils (%) (Auto) 1 % (0-3) 1 % (0-3) Neutrophils # (Auto) 5.4 x10^3uL (1.8-7.7) 4.4 x10^3uL (1.8-7.7) Lymphocytes # (Auto) 1.4 x10^3/uL (1.0-4.8) 1.3 x10^3/uL (1.0-4.8) Monocytes # (Auto) 0.6 x10^3/uL (0.0-1.1) 0.8 x10^3/uL (0.0-1.1) Eosinophils # (Auto) 0.2 x10^3/uL (0.0-0.7) 0.3 x10^3/uL (0.0-0.7) Basophils # (Auto) 0.1 x10^3/uL (0.0-0.2) 0.0 x10^3/uL (0.0-0.2) Sodium Level 141 mmol/L (136-145) 142 mmol/L (136-145) Potassium Level 3.2 mmol/L (3.5-5.1) 3.6 mmol/L (3.5-5.1) Chloride Level 104 mmol/L (98-107) 107 mmol/L (98-107) Carbon Dioxide Level 28 mmol/L (21-32) 24 mmol/L (21-32) Anion Gap 9 (6-14) 11 (6-14) Blood Urea Nitrogen 6 mg/dL (7-20) 9 mg/dL (7-20) Creatinine 0.9 mg/dL (0.6-1.0) 2.0 mg/dL (0.6-1.0) Estimated GFR (Cockcroft-Gault) 74.6 29.7 Glucose Level 84 mg/dL (70-99) 81 mg/dL (70-99) Calcium Level 8.5 mg/dL (8.5-10.1) 8.1 mg/dL (8.5-10.1) Laboratory Tests Test 03/19/17 05:30 White Blood Count 6.9 x10^3/uL (4.0-11.0) Red Blood Count 3.70 x10^6/uL (3.50-5.40) Hemoglobin 11.3 g/dL (12.0-15.5) Hematocrit 33.6 % (36.0-47.0) Mean Corpuscular Volume 91 fL (79-100) Mean Corpuscular Hemoglobin 31 pg (25-35) Mean Corpuscular Hemoglobin Concent 34 g/dL (31-37) Red Cell Distribution Width 15.4 % (11.5-14.5) Platelet Count 141 x10^3/uL (140-400) Neutrophils (%) (Auto) 65 % (31-73) Lymphocytes (%) (Auto) 18 % (24-48) Monocytes (%) (Auto) 12 % (0-9) Eosinophils (%) (Auto) 4 % (0-3) Basophils (%) (Auto) 1 % (0-3) Neutrophils # (Auto) 4.4 x10^3uL (1.8-7.7) Lymphocytes # (Auto) 1.3 x10^3/uL (1.0-4.8) Monocytes # (Auto) 0.8 x10^3/uL (0.0-1.1) Eosinophils # (Auto) 0.3 x10^3/uL (0.0-0.7) Basophils # (Auto) 0.0 x10^3/uL (0.0-0.2) Sodium Level 142 mmol/L (136-145) Potassium Level 3.6 mmol/L (3.5-5.1) Chloride Level 107 mmol/L (98-107) Carbon Dioxide Level 24 mmol/L (21-32) Anion Gap 11 (6-14) Blood Urea Nitrogen 9 mg/dL (7-20) Creatinine 2.0 mg/dL (0.6-1.0) Estimated GFR (Cockcroft-Gault) 29.7 Glucose Level 81 mg/dL (70-99) Calcium Level 8.1 mg/dL (8.5-10.1) Problem List s/p lap appendectomy monitor Cr, will ask nephrology to comment plan d/c home in AM, if continued improvement Problems: POPPY TUBBS MD Mar 19, 2017 15:03
--- NOTE | 2017-03-19 15:26 | PDOC ---
PROGRESS NOTES Chief Complaint Chief Complaint acute appendicitis with perforation s/p lap appendectomy 03/15, path acute and chronic appendicitis morbid obesity BMI 44 sepsis h/o gastric sleeve sx 02/2017 hypokalemia EMILY, possible ATN with vanco PLAN; fu with sx,ID consulted, on fluconazol and zosyn now, vanco dced on 03/19 gi soft diet as per sx ivf increase to 100cc/h, 1L bolus replete K labs tmr pain control pt cont having abd pain with low garde t, abd CT done, NOT Significant for abscess picc line for poor iv access. new face rash, likely contact with the rug, ok to ob for now dvt, gi ppx dc soon History of Present Illness History of Present Illness ROS: no chills, sob or chest pain, low Fever T 100.3 yesterday afternoon +bm + flatus post op abd pain better, but + nausea, low po intake gi soft diet as per sx Cr 2 Vitals Vitals Vital Signs Date Time Temp Pulse Resp B/P (MAP) Pulse Ox O2 Delivery O2 Flow Rate FiO2 03/19/17 12:08 20 Room Air 03/19/17 11:00 97.8 92 108/64 (79) 94 97.8 03/18/17 22:32 2.0 Physical Exam General: Alert, Oriented X3, Cooperative, No acute distress Heart: Regular rate, Normal S1, Normal S2 Lungs: Clear Abdomen: Soft, No tenderness Extremities: No clubbing, No cyanosis Skin: No rashes, No breakdown Labs LABS Laboratory Tests Test 03/19/17 05:30 White Blood Count 6.9 x10^3/uL (4.0-11.0) Red Blood Count 3.70 x10^6/uL (3.50-5.40) Hemoglobin 11.3 g/dL (12.0-15.5) Hematocrit 33.6 % (36.0-47.0) Mean Corpuscular Volume 91 fL (79-100) Mean Corpuscular Hemoglobin 31 pg (25-35) Mean Corpuscular Hemoglobin Concent 34 g/dL (31-37) Red Cell Distribution Width 15.4 % (11.5-14.5) Platelet Count 141 x10^3/uL (140-400) Neutrophils (%) (Auto) 65 % (31-73) Lymphocytes (%) (Auto) 18 % (24-48) Monocytes (%) (Auto) 12 % (0-9) Eosinophils (%) (Auto) 4 % (0-3) Basophils (%) (Auto) 1 % (0-3) Neutrophils # (Auto) 4.4 x10^3uL (1.8-7.7) Lymphocytes # (Auto) 1.3 x10^3/uL (1.0-4.8) Monocytes # (Auto) 0.8 x10^3/uL (0.0-1.1) Eosinophils # (Auto) 0.3 x10^3/uL (0.0-0.7) Basophils # (Auto) 0.0 x10^3/uL (0.0-0.2) Sodium Level 142 mmol/L (136-145) Potassium Level 3.6 mmol/L (3.5-5.1) Chloride Level 107 mmol/L (98-107) Carbon Dioxide Level 24 mmol/L (21-32) Anion Gap 11 (6-14) Blood Urea Nitrogen 9 mg/dL (7-20) Creatinine 2.0 mg/dL (0.6-1.0) Estimated GFR (Cockcroft-Gault) 29.7 Glucose Level 81 mg/dL (70-99) Calcium Level 8.1 mg/dL (8.5-10.1) Comment Review of Relevant I have reviewed the following items na (where applicable) has been applied. Labs Laboratory Tests Test 03/18/17 05:30 03/19/17 05:30 White Blood Count 7.6 x10^3/uL (4.0-11.0) 6.9 x10^3/uL (4.0-11.0) Red Blood Count 4.28 x10^6/uL (3.50-5.40) 3.70 x10^6/uL (3.50-5.40) Hemoglobin 12.9 g/dL (12.0-15.5) 11.3 g/dL (12.0-15.5) Hematocrit 38.8 % (36.0-47.0) 33.6 % (36.0-47.0) Mean Corpuscular Volume 91 fL (79-100) 91 fL (79-100) Mean Corpuscular Hemoglobin 30 pg (25-35) 31 pg (25-35) Mean Corpuscular Hemoglobin Concent 33 g/dL (31-37) 34 g/dL (31-37) Red Cell Distribution Width 15.1 % (11.5-14.5) 15.4 % (11.5-14.5) Platelet Count 196 x10^3/uL (140-400) 141 x10^3/uL (140-400) Neutrophils (%) (Auto) 71 % (31-73) 65 % (31-73) Lymphocytes (%) (Auto) 19 % (24-48) 18 % (24-48) Monocytes (%) (Auto) 8 % (0-9) 12 % (0-9) Eosinophils (%) (Auto) 2 % (0-3) 4 % (0-3) Basophils (%) (Auto) 1 % (0-3) 1 % (0-3) Neutrophils # (Auto) 5.4 x10^3uL (1.8-7.7) 4.4 x10^3uL (1.8-7.7) Lymphocytes # (Auto) 1.4 x10^3/uL (1.0-4.8) 1.3 x10^3/uL (1.0-4.8) Monocytes # (Auto) 0.6 x10^3/uL (0.0-1.1) 0.8 x10^3/uL (0.0-1.1) Eosinophils # (Auto) 0.2 x10^3/uL (0.0-0.7) 0.3 x10^3/uL (0.0-0.7) Basophils # (Auto) 0.1 x10^3/uL (0.0-0.2) 0.0 x10^3/uL (0.0-0.2) Sodium Level 141 mmol/L (136-145) 142 mmol/L (136-145) Potassium Level 3.2 mmol/L (3.5-5.1) 3.6 mmol/L (3.5-5.1) Chloride Level 104 mmol/L (98-107) 107 mmol/L (98-107) Carbon Dioxide Level 28 mmol/L (21-32) 24 mmol/L (21-32) Anion Gap 9 (6-14) 11 (6-14) Blood Urea Nitrogen 6 mg/dL (7-20) 9 mg/dL (7-20) Creatinine 0.9 mg/dL (0.6-1.0) 2.0 mg/dL (0.6-1.0) Estimated GFR (Cockcroft-Gault) 74.6 29.7 Glucose Level 84 mg/dL (70-99) 81 mg/dL (70-99) Calcium Level 8.5 mg/dL (8.5-10.1) 8.1 mg/dL (8.5-10.1) Laboratory Tests Test 03/19/17 05:30 White Blood Count 6.9 x10^3/uL (4.0-11.0) Red Blood Count 3.70 x10^6/uL (3.50-5.40) Hemoglobin 11.3 g/dL (12.0-15.5) Hematocrit 33.6 % (36.0-47.0) Mean Corpuscular Volume 91 fL (79-100) Mean Corpuscular Hemoglobin 31 pg (25-35) Mean Corpuscular Hemoglobin Concent 34 g/dL (31-37) Red Cell Distribution Width 15.4 % (11.5-14.5) Platelet Count 141 x10^3/uL (140-400) Neutrophils (%) (Auto) 65 % (31-73) Lymphocytes (%) (Auto) 18 % (24-48) Monocytes (%) (Auto) 12 % (0-9) Eosinophils (%) (Auto) 4 % (0-3) Basophils (%) (Auto) 1 % (0-3) Neutrophils # (Auto) 4.4 x10^3uL (1.8-7.7) Lymphocytes # (Auto) 1.3 x10^3/uL (1.0-4.8) Monocytes # (Auto) 0.8 x10^3/uL (0.0-1.1) Eosinophils # (Auto) 0.3 x10^3/uL (0.0-0.7) Basophils # (Auto) 0.0 x10^3/uL (0.0-0.2) Sodium Level 142 mmol/L (136-145) Potassium Level 3.6 mmol/L (3.5-5.1) Chloride Level 107 mmol/L (98-107) Carbon Dioxide Level 24 mmol/L (21-32) Anion Gap 11 (6-14) Blood Urea Nitrogen 9 mg/dL (7-20) Creatinine 2.0 mg/dL (0.6-1.0) Estimated GFR (Cockcroft-Gault) 29.7 Glucose Level 81 mg/dL (70-99) Calcium Level 8.1 mg/dL (8.5-10.1) Microbiology 03/17/17 Blood Culture - Preliminary, Resulted NO GROWTH AFTER 2 DAYS Medications Current Medications Dexamethasone Sodium Phosphate (Decadron) 20 mg STK-MED ONCE .ROUTE ; Start 03/15/17 at 14:06; Stop 03/15/17 at 14:07; Status DC Ondansetron HCl (Zofran) 4 mg STK-MED ONCE .ROUTE ; Start 03/15/17 at 14:06; Stop 03/15/17 at 14:07; Status DC Propofol 20 ml @ As Directed STK-MED ONCE IV ; Start 03/15/17 at 14:06; Stop at 14:07; Status DC Lidocaine HCl (Lidocaine Pf 2% Vial) 5 ml STK-MED ONCE .ROUTE ; Start 03/15/17 at 14:06; Stop 03/15/17 at 14:07; Status DC Midazolam HCl (Versed) 2 mg STK-MED ONCE .ROUTE ; Start 03/15/17 at 14:06; Stop 03/15/17 at 14:07; Status DC Fentanyl Citrate (Fentanyl 2ml Vial) 100 mcg STK-MED ONCE .ROUTE ; Start at 14:06; Stop 03/15/17 at 14:07; Status DC Rocuronium Moore (Zemuron) 100 mg STK-MED ONCE .ROUTE ; Start 03/15/17 at 14: 07; Stop 03/15/17 at 14:08; Status DC Succinylcholine Chloride (Anectine) 200 mg STK-MED ONCE .ROUTE ; Start 03/15/17 at 14:07; Stop 03/15/17 at 14:08; Status DC Bupivacaine HCl/ Epinephrine Bitart (Marcaine-Epi 0.5%-[id number]) 50 ml STK-MED ONCE .ROUTE Last administered on 03/15/17t 14:54; Start 03/15/17 at 13:07; Stop 03/15/17 at 14:08; Status DC Cefoxitin Sodium 2 gm/Sodium Chloride 100 ml @ 200 mls/hr 1X PREOP IV Last administered on 03/15/17 14:55; Start 03/15/17 at 16:00; Stop 03/16/17 at 14:41 ; Status DC Sodium Chloride 1,000 ml @ 125 mls/hr 1X ONCE IV Last administered on 14:15; Start 03/15/17 at 14:15; Stop 03/15/17 at 22:14; Status DC Cefoxitin Sodium 100 ml @ As Directed STK-MED ONCE IV ; Start 03/15/17 at 14:53 ; Stop 03/15/17 at 14:54; Status DC Enoxaparin Sodium (Lovenox 40mg Syringe) 40 mg Q24H SQ ; Start 03/15/17 at 15:30 ; Stop 03/16/17 at 14:38; Status DC Sodium Chloride (Normal Saline Flush) 3 ml QSHIFT PRN IV AFTER MEDS AND BLOOD DRAWS; Start 03/15/17 at 15:30 Ringer's Solution 1,000 ml @ 100 mls/hr Q10H IV Last administered on 22:33; Start 03/15/17 at 15:19 Acetaminophen/ Hydrocodone Bitart (Lortab 5/325) 1 tab PRN Q4HRS PRN PO MILD PAIN Last administered on 03/16/17 02:56; Start 03/15/17 at 15:30; Stop at 13:05; Status DC Ketorolac Tromethamine (Toradol) 15 mg PRN Q6HRS PRN IV PAIN; Start 03/15/17 at 15:30; Stop 03/16/17 at 09:05; Status DC Morphine Sulfate 2 mg PRN Q1HR PRN IV PAIN Last administered on 03/16/17 13:02 ; Start 03/15/17 at 15:30 Docusate Sodium (Colace) 100 mg BID PO Last administered on 03/17/17 13:04; Start 03/15/17 at 21:00 Ondansetron HCl (Zofran) 4 mg PRN Q6HRS PRN IV NAUESA, 1ST CHOICE Last administered on 03/19/17 10:03; Start 03/15/17 at 15:30 Piperacillin Sod/ Tazobactam Sod 3.375 gm/Sodium Chloride 50 ml @ 100 mls/hr Q6HRS IV Last administered on 03/19/17 14:28; Start 03/15/17 at 18:00 Morphine Sulfate 10 mg STK-MED ONCE .ROUTE ; Start 03/15/17 at 15:32; Stop 03/15 at 15:33; Status DC Ringer's Solution 1,000 ml @ 125 mls/hr Q8H IV Last administered on 03/16/17 00:51; Start 03/15/17 at 15:42; Stop 03/16/17 at 03:41; Status DC Lidocaine HCl (Xylocaine-Mpf 1% Vial) 0.5 ml 1X PRN PRN INJ IV START; Start at 15:45; Stop 03/16/17 at 15:44; Status DC Ringer's Solution 1,000 ml @ 125 mls/hr Q8H IV ; Start 03/15/17 at 15:42; Stop 03/15/17 at 21:41; Status DC Fentanyl Citrate (Fentanyl 2ml Vial) 25 mcg PRN Q5MIN PRN IV Acute Pain; Start 03/15/17 at 15:45; Stop 03/16/17 at 09:05; Status DC Fentanyl Citrate (Fentanyl 2ml Vial) 50 mcg PRN Q5MIN PRN IV Acute Pain Last administered on 03/15/17 15:58; Start 03/15/17 at 15:45; Stop 03/16/17 at 09:05 ; Status DC Morphine Sulfate 2 mg PRN Q10MIN PRN IV Mild Pain; Start 03/15/17 at 15:45; Stop 03/16/17 at 09:05; Status DC Morphine Sulfate 4 mg PRN Q10MIN PRN IV Moderate Pain; Start 03/15/17 at 15:45 ; Stop 03/16/17 at 09:05; Status DC Ondansetron HCl (Zofran) 4 mg PRN Q6HRS PRN IV Nausea, 1st Choice; Start at 15:45; Stop 03/16/17 at 09:05; Status DC Metoclopramide HCl (Reglan) 10 mg PRN Q6HRS PRN IV Nausea/Vomiting, 2nd Choice Last administered on 03/15/17 18:49; Start 03/15/17 at 15:45; Stop 03/16/17 at 15:44; Status DC Diphenhydramine HCl (Benadryl) 12.5 mg PRN Q2HR PRN IV ITCHING; Start 03/15/17 at 15:45; Stop 03/16/17 at 15:44; Status DC Albuterol Sulfate (Ventolin Neb Soln) 2.5 mg PRN 1X PRN NEB Shortness of Breath , Wheezing; Start 03/15/17 at 15:45; Stop 03/16/17 at 15:44; Status DC Dexamethasone Sodium Phosphate (Decadron) 8 mg 1X PRN PRN IV 3RD CHOICE FOR NAUSEA; Start 03/15/17 at 15:45; Stop 03/16/17 at 15:44; Status DC Meperidine HCl (Demerol) 10 mg 1X PERIOP PRN IV SHIVERING; Start 03/15/17 at 15 :45; Stop 03/16/17 at 15:44; Status DC Meperidine HCl (Demerol) 15 mg 1X PERIOP PRN IV SHIVERING; Start 03/15/17 at 15 :45; Stop 03/16/17 at 15:44; Status DC Prochlorperazine Edisylate (Compazine) 10 mg STK-MED ONCE .ROUTE ; Start at 15:48; Stop 03/15/17 at 15:49; Status DC Prochlorperazine Maleate (Compazine) 5 mg 1X PACU PRN PO NAUSEA/VOMITING; Start 03/15/17 at 16:00 Hydromorphone HCl (Dilaudid) 0.5 mg PRN Q10MIN PRN IV PAIN Last administered on 03/15/17 16:52; Start 03/15/17 at 16:15; Stop 03/16/17 at 09:05; Status DC Acetaminophen/ Hydrocodone Bitart (Lortab 5/325) 2 tab PRN Q4HRS PRN PO PAIN Last administered on 03/16/17 10:16; Start 03/16/17 at 09:15; Stop 03/16/17 at 13:05; Status DC Multivitamins (Thera M Plus) 1 tab DAILY PO Last administered on 03/19/17 11: 07; Start 03/16/17 at 13:00 Pantoprazole Sodium (Protonix) 40 mg DAILYAC PO Last administered on 03/19/17 11:07; Start 03/16/17 at 13:00 Oxycodone/ Acetaminophen (Percocet 7.5/ 325) 1 tab PRN Q4HRS PRN PO PAIN Last administered on 03/19/17 11:08; Start 03/16/17 at 13:15 Morphine Sulfate 4 mg PRN Q2HR PRN IV PAIN Last administered on 03/18/17 14:11 ; Start 03/16/17 at 13:15 Enoxaparin Sodium (Lovenox 40mg Syringe) 40 mg Q12HR SQ Last administered on 11:07; Start 03/16/17 at 21:00 Iohexol (Omnipaque 300 Mg/ml) 75 ml 1X ONCE IV Last administered on 03/17/17 08:00; Start 03/17/17 at 08:00; Stop 03/17/17 at 08:01; Status DC Iohexol (Omnipaque 240 Mg/ml) 50 ml 1X ONCE PO Last administered on 03/17/17 08:00; Start 03/17/17 at 08:00; Stop 03/17/17 at 08:01; Status DC Info (Do NOT chart on this entry -- for MONITORING) 1 each PRN DAILY PRN MC SEE COMMENTS; Start 03/17/17 at 07:45; Stop 03/19/17 at 07:44; Status DC Sodium Chloride 1,000 ml @ 1,000 mls/hr 1X ONCE IV Last administered on 08:00; Start 03/17/17 at 08:00; Stop 03/17/17 at 08:59; Status DC Vancomycin HCl (Vanco Per Pharmacy) 1 each PRN DAILY PRN MC SEE COMMENTS Last administered on 03/18/17 14:24; Start 03/17/17 at 08:00; Stop 03/19/17 at 11:10 ; Status DC Fluconazole/ Sodium Chloride 200 ml @ 100 mls/hr Q24H IV Last administered on 03/19/17 11:10; Start 03/17/17 at 09:00 Vancomycin HCl 2 gm/Sodium Chloride 500 ml @ 250 mls/hr 1X ONCE IV Last administered on 03/17/17 13:08; Start 03/17/17 at 09:00; Stop 03/17/17 at 10:59 ; Status DC Acetaminophen (Tylenol) 650 mg PRN Q6HRS PRN PO FEVER Last administered on 03/17 14:12; Start 03/17/17 at 08:15 Vancomycin HCl 2 gm/Sodium Chloride 500 ml @ 250 mls/hr Q8H IV Last administered on 03/19/17 05:41; Start 03/17/17 at 22:00; Stop 03/19/17 at 11:10 ; Status DC Vancomycin HCl 1 each 1X ONCE MC ; Start 03/18/17 at 13:30; Stop 03/18/17 at 13 :31; Status DC Calcium Carbonate/ Glycine (Tums) 1,000 mg PRN Q4HRS PRN PO INDIGESTION Last administered on 03/17/17 23:57; Start 03/17/17 at 23:45 Potassium Chloride (Klor-Con) 40 meq 1X ONCE PO Last administered on 14:14; Start 03/18/17 at 12:45; Stop 03/18/17 at 12:46; Status DC Vancomycin HCl 1 each 1X ONCE MC ; Start 03/19/17 at 13:30; Stop 03/19/17 at 13 :30; Status DC Sodium Chloride 1,000 ml @ 1,000 mls/hr 1X ONCE IV Last administered on 14:28; Start 03/19/17 at 12:15; Stop 03/19/17 at 13:14; Status DC Active Scripts Active Reported Multivitamins (Multivitamin) 1 Each Tablet 1 Tab PO DAILY Omeprazole 20 Mg Capsule.dr 1 Cap PO DAILY Vitals/I & O Vital Sign - Last 24 Hours 03/18/17 03/18/17 03/18/17 03/18/17 18:39 19:39 19:43 22:32 Temp 98.9 98.9 Pulse 106 Resp 20 22 B/P (MAP) 113/66 (82) Pulse Ox 90 O2 Delivery Nasal Cannula Room Air O2 Flow Rate 2.0 2.0 2.0 03/18/17 03/19/17 03/19/17 03/19/17 23:59 03:14 03:59 07:00 Temp 98.6 98.3 97.7 98.6 98.3 97.7 Pulse 101 86 81 Resp 18 18 B/P (MAP) 111/66 (81) 104/62 (76) 108/75 (86) Pulse Ox 90 93 91 O2 Delivery Room Air Nasal Cannula Room Air Room Air 03/19/17 03/19/17 03/19/17 11:00 11:08 12:08 Temp 97.8 97.8 Pulse 92 Resp 18 22 20 B/P (MAP) 108/64 (79) Pulse Ox 94 O2 Delivery Room Air Room Air Room Air CHANEL HAWLEY MD Mar 19, 2017 15:26
[2017-03-19 19:00] VITALS: BP 118/69
[2017-03-19 23:00] VITALS: BP 110/74
[2017-03-20] MEDS: oxyCODONE/APAP 7.5/325 1 TAB TABLET PO PRN ×4 (00:57→21:49)
[2017-03-20 03:00] VITALS: BP 106/62
[2017-03-20] MEDS: IV RINGERS,LACTATED 1000ML 1,000 ML IV SCH ×3 (06:15→21:52)
[2017-03-20] MEDS: PIPERACILLIN/TAZOBACTAM 3.375 GM in IV NORMAL SALINE 50ML 50 ML IV SCH ×5 (06:15→17:49)
[2017-03-20] MEDS: ONDANSETRON PF 4 MG/2 ML VIAL. IV PRN ×3 (06:15→21:49)
[2017-03-20 06:33] LABS: BASO # 0.1 x10^3/uL (0.0-0.2); BASO % 1 % (0-3); EOS % 5 % (0-3); HEMATOCRIT 35.5 % (36.0-47.0); LYMPH # 1.7 x10^3/uL (1.0-4.8); LYMPH % 21 % (24-48); MEAN CORPUSCULAR HEMOGLOBIN 30 pg (25-35); MEAN CORPUSCULAR HGB CONC 34 g/dL (31-37); MEAN CORPUSCULAR VOLUME 90 fL (79-100); MONO % 11 % (0-9); NEUT % 62 % (31-73); PLATELET COUNT 190 x10^3/uL (140-400); RED BLOOD COUNT 3.96 x10^6/uL (3.50-5.40); RED CELL DISTRIBUTION WIDTH 15.6 % (11.5-14.5); WHITE BLOOD COUNT 8.2 x10^3/uL (4.0-11.0)
[2017-03-20 06:46] LABS: CALCIUM 8.3 mg/dL (8.5-10.1); CREATININE 3.9 mg/dL (0.6-1.0); GFR 13.7; POTASSIUM 3.8 mmol/L (3.5-5.1)
[2017-03-20 07:00] VITALS: BP 116/79
[2017-03-20] MEDS: ENOXAPARIN 40 MG/0.4 ML SYRINGE. SQ SCH (08:47)
[2017-03-20] MEDS: DOCUSATE SODIUM 100 MG CAPSULE. PO SCH ×2 (08:48→21:44)
[2017-03-20] MEDS: MULTIVITAMIN with MINERAL TABLET. PO SCH (08:48)
[2017-03-20] MEDS: PANTOPRAZOLE 40 MG TABLET.DR. PO SCH ×2 (08:48→15:43)
[2017-03-20] MEDS: FLUCONAZOLE 400MG/200ML PREMIX 200 ML IV SCH (08:48)
--- NOTE | 2017-03-20 10:11 | PDOC ---
Infectious Disease Note Subjective Subjective c/o nausea and dry heaving, poor oral intake ROS ROS GEN: Denies fevers, chills, sweats HEENT: Denies blurred vision, sore throat CV: Denies chest pain RESP: Denies shortness of air, cough GI: Denies /v/d NEURO: Denies confusion, dizziness MSK: Denies weakness, joint pain/swelling Vital Sign Vital Signs Vital Signs Date Time Temp Pulse Resp B/P (MAP) Pulse Ox O2 Delivery O2 Flow Rate FiO2 03/20/17 07:30 92 Room Air 03/20/17 07:00 98.1 70 18 116/79 (91) 98.1 03/19/17 08:00 2.0 Physical Exam PHYSICAL EXAM GENERAL: NAD, Alert HEENT: PERRL, OC/OP NECK: Supple, no JVD, no LN LUNGS: Clear HEART: S1S2, no gallop, no murmur ABD: Soft, , no organomegaly, no rebound, mild abd tenderness + EXT: No edema, no cyanosis [employer]: Alert, oriented x 3, no focal neurologic deficit SKIN: No rash IV: ok Labs Lab Laboratory Tests Test 03/20/17 06:20 White Blood Count 8.2 x10^3/uL (4.0-11.0) Red Blood Count 3.96 x10^6/uL (3.50-5.40) Hemoglobin 12.0 g/dL (12.0-15.5) Hematocrit 35.5 % (36.0-47.0) Mean Corpuscular Volume 90 fL (79-100) Mean Corpuscular Hemoglobin 30 pg (25-35) Mean Corpuscular Hemoglobin Concent 34 g/dL (31-37) Red Cell Distribution Width 15.6 % (11.5-14.5) Platelet Count 190 x10^3/uL (140-400) Neutrophils (%) (Auto) 62 % (31-73) Lymphocytes (%) (Auto) 21 % (24-48) Monocytes (%) (Auto) 11 % (0-9) Eosinophils (%) (Auto) 5 % (0-3) Basophils (%) (Auto) 1 % (0-3) Neutrophils # (Auto) 5.1 x10^3uL (1.8-7.7) Lymphocytes # (Auto) 1.7 x10^3/uL (1.0-4.8) Monocytes # (Auto) 0.9 x10^3/uL (0.0-1.1) Eosinophils # (Auto) 0.4 x10^3/uL (0.0-0.7) Basophils # (Auto) 0.1 x10^3/uL (0.0-0.2) Sodium Level 142 mmol/L (136-145) Potassium Level 3.8 mmol/L (3.5-5.1) Chloride Level 107 mmol/L (98-107) Carbon Dioxide Level 24 mmol/L (21-32) Anion Gap 11 (6-14) Blood Urea Nitrogen 15 mg/dL (7-20) Creatinine 3.9 mg/dL (0.6-1.0) Estimated GFR (Cockcroft-Gault) 13.7 Glucose Level 85 mg/dL (70-99) Calcium Level 8.3 mg/dL (8.5-10.1) Objective Assessment ? developing sepsis Appendicitis s/p appendectomy 03/15 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 s/p Dexamethasone 03/15 vs reactive EMILY Plan Plan of Care Continue Zosyn and Fluconazole Monitor temp, WBC and renal function f/u cultures iv fluids MELISSA VILLANUEVA MD Mar 20, 2017 10:11
--- NOTE | 2017-03-20 10:43 | PDOC ---
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 new face rash, likely contact with the rug, ok to ob for now dvt, gi ppx Vitals Vitals Vital Signs Date Time Temp Pulse Resp B/P (MAP) Pulse Ox O2 Delivery O2 Flow Rate FiO2 03/20/17 07:30 92 Room Air 03/20/17 07:00 98.1 70 18 116/79 (91) 98.1 03/19/17 08:00 2.0 Physical Exam General: Alert, Oriented X3, Cooperative, No acute distress Heart: Regular rate, Normal S1, Normal S2 Lungs: Clear Abdomen: Soft, No tenderness Extremities: No clubbing, No cyanosis Skin: No rashes, No breakdown Labs LABS Laboratory Tests Test 03/20/17 06:20 White Blood Count 8.2 x10^3/uL (4.0-11.0) Red Blood Count 3.96 x10^6/uL (3.50-5.40) Hemoglobin 12.0 g/dL (12.0-15.5) Hematocrit 35.5 % (36.0-47.0) Mean Corpuscular Volume 90 fL (79-100) Mean Corpuscular Hemoglobin 30 pg (25-35) Mean Corpuscular Hemoglobin Concent 34 g/dL (31-37) Red Cell Distribution Width 15.6 % (11.5-14.5) Platelet Count 190 x10^3/uL (140-400) Neutrophils (%) (Auto) 62 % (31-73) Lymphocytes (%) (Auto) 21 % (24-48) Monocytes (%) (Auto) 11 % (0-9) Eosinophils (%) (Auto) 5 % (0-3) Basophils (%) (Auto) 1 % (0-3) Neutrophils # (Auto) 5.1 x10^3uL (1.8-7.7) Lymphocytes # (Auto) 1.7 x10^3/uL (1.0-4.8) Monocytes # (Auto) 0.9 x10^3/uL (0.0-1.1) Eosinophils # (Auto) 0.4 x10^3/uL (0.0-0.7) Basophils # (Auto) 0.1 x10^3/uL (0.0-0.2) Sodium Level 142 mmol/L (136-145) Potassium Level 3.8 mmol/L (3.5-5.1) Chloride Level 107 mmol/L (98-107) Carbon Dioxide Level 24 mmol/L (21-32) Anion Gap 11 (6-14) Blood Urea Nitrogen 15 mg/dL (7-20) Creatinine 3.9 mg/dL (0.6-1.0) Estimated GFR (Cockcroft-Gault) 13.7 Glucose Level 85 mg/dL (70-99) Calcium Level 8.3 mg/dL (8.5-10.1) Review of Systems Review of Systems ROS: no chills, sob or chest pain, low Fever T 100.3 yesterday afternoon +bm + flatus post op abd pain better, but + nausea, low po intake gi soft diet as per sx Comment Review of Relevant I have reviewed the following items na (where applicable) has been applied. Labs Laboratory Tests Test 03/19/17 05:30 03/20/17 06:20 White Blood Count 6.9 x10^3/uL (4.0-11.0) 8.2 x10^3/uL (4.0-11.0) Red Blood Count 3.70 x10^6/uL (3.50-5.40) 3.96 x10^6/uL (3.50-5.40) Hemoglobin 11.3 g/dL (12.0-15.5) 12.0 g/dL (12.0-15.5) Hematocrit 33.6 % (36.0-47.0) 35.5 % (36.0-47.0) Mean Corpuscular Volume 91 fL (79-100) 90 fL (79-100) Mean Corpuscular Hemoglobin 31 pg (25-35) 30 pg (25-35) Mean Corpuscular Hemoglobin Concent 34 g/dL (31-37) 34 g/dL (31-37) Red Cell Distribution Width 15.4 % (11.5-14.5) 15.6 % (11.5-14.5) Platelet Count 141 x10^3/uL (140-400) 190 x10^3/uL (140-400) Neutrophils (%) (Auto) 65 % (31-73) 62 % (31-73) Lymphocytes (%) (Auto) 18 % (24-48) 21 % (24-48) Monocytes (%) (Auto) 12 % (0-9) 11 % (0-9) Eosinophils (%) (Auto) 4 % (0-3) 5 % (0-3) Basophils (%) (Auto) 1 % (0-3) 1 % (0-3) Neutrophils # (Auto) 4.4 x10^3uL (1.8-7.7) 5.1 x10^3uL (1.8-7.7) Lymphocytes # (Auto) 1.3 x10^3/uL (1.0-4.8) 1.7 x10^3/uL (1.0-4.8) Monocytes # (Auto) 0.8 x10^3/uL (0.0-1.1) 0.9 x10^3/uL (0.0-1.1) Eosinophils # (Auto) 0.3 x10^3/uL (0.0-0.7) 0.4 x10^3/uL (0.0-0.7) Basophils # (Auto) 0.0 x10^3/uL (0.0-0.2) 0.1 x10^3/uL (0.0-0.2) Sodium Level 142 mmol/L (136-145) 142 mmol/L (136-145) Potassium Level 3.6 mmol/L (3.5-5.1) 3.8 mmol/L (3.5-5.1) Chloride Level 107 mmol/L (98-107) 107 mmol/L (98-107) Carbon Dioxide Level 24 mmol/L (21-32) 24 mmol/L (21-32) Anion Gap 11 (6-14) 11 (6-14) Blood Urea Nitrogen 9 mg/dL (7-20) 15 mg/dL (7-20) Creatinine 2.0 mg/dL (0.6-1.0) 3.9 mg/dL (0.6-1.0) Estimated GFR (Cockcroft-Gault) 29.7 13.7 Glucose Level 81 mg/dL (70-99) 85 mg/dL (70-99) Calcium Level 8.1 mg/dL (8.5-10.1) 8.3 mg/dL (8.5-10.1) Laboratory Tests Test 03/20/17 06:20 White Blood Count 8.2 x10^3/uL (4.0-11.0) Red Blood Count 3.96 x10^6/uL (3.50-5.40) Hemoglobin 12.0 g/dL (12.0-15.5) Hematocrit 35.5 % (36.0-47.0) Mean Corpuscular Volume 90 fL (79-100) Mean Corpuscular Hemoglobin 30 pg (25-35) Mean Corpuscular Hemoglobin Concent 34 g/dL (31-37) Red Cell Distribution Width 15.6 % (11.5-14.5) Platelet Count 190 x10^3/uL (140-400) Neutrophils (%) (Auto) 62 % (31-73) Lymphocytes (%) (Auto) 21 % (24-48) Monocytes (%) (Auto) 11 % (0-9) Eosinophils (%) (Auto) 5 % (0-3) Basophils (%) (Auto) 1 % (0-3) Neutrophils # (Auto) 5.1 x10^3uL (1.8-7.7) Lymphocytes # (Auto) 1.7 x10^3/uL (1.0-4.8) Monocytes # (Auto) 0.9 x10^3/uL (0.0-1.1) Eosinophils # (Auto) 0.4 x10^3/uL (0.0-0.7) Basophils # (Auto) 0.1 x10^3/uL (0.0-0.2) Sodium Level 142 mmol/L (136-145) Potassium Level 3.8 mmol/L (3.5-5.1) Chloride Level 107 mmol/L (98-107) Carbon Dioxide Level 24 mmol/L (21-32) Anion Gap 11 (6-14) Blood Urea Nitrogen 15 mg/dL (7-20) Creatinine 3.9 mg/dL (0.6-1.0) Estimated GFR (Cockcroft-Gault) 13.7 Glucose Level 85 mg/dL (70-99) Calcium Level 8.3 mg/dL (8.5-10.1) Microbiology 03/17/17 Blood Culture - Preliminary, Resulted NO GROWTH AFTER 3 DAYS Medications Current Medications Dexamethasone Sodium Phosphate (Decadron) 20 mg STK-MED ONCE .ROUTE ; Start 03/15/17 at 14:06; Stop 03/15/17 at 14:07; Status DC Ondansetron HCl (Zofran) 4 mg STK-MED ONCE .ROUTE ; Start 03/15/17 at 14:06; Stop 03/15/17 at 14:07; Status DC Propofol 20 ml @ As Directed STK-MED ONCE IV ; Start 03/15/17 at 14:06; Stop at 14:07; Status DC Lidocaine HCl (Lidocaine Pf 2% Vial) 5 ml STK-MED ONCE .ROUTE ; Start 03/15/17 at 14:06; Stop 03/15/17 at 14:07; Status DC Midazolam HCl (Versed) 2 mg STK-MED ONCE .ROUTE ; Start 03/15/17 at 14:06; Stop 03/15/17 at 14:07; Status DC Fentanyl Citrate (Fentanyl 2ml Vial) 100 mcg STK-MED ONCE .ROUTE ; Start at 14:06; Stop 03/15/17 at 14:07; Status DC Rocuronium [place] (Zemuron) 100 mg STK-MED ONCE .ROUTE ; Start 03/15/17 at 14: 07; Stop 03/15/17 at 14:08; Status DC Succinylcholine Chloride (Anectine) 200 mg STK-MED ONCE .ROUTE ; Start 03/15/17 at 14:07; Stop 03/15/17 at 14:08; Status DC Bupivacaine HCl/ Epinephrine Bitart (Marcaine-Epi 0.5%-[id number]) 50 ml STK-MED ONCE .ROUTE Last administered on 03/15/17 14:54; Start 03/15/17 at 13:07; Stop 03/15/17 at 14:08; Status DC Cefoxitin Sodium 2 gm/Sodium Chloride 100 ml @ 200 mls/hr 1X PREOP IV Last administered on 03/15/17 14:55; Start 03/15/17 at 16:00; Stop 03/16/17 at 14:41 ; Status DC Sodium Chloride 1,000 ml @ 125 mls/hr 1X ONCE IV Last administered on 14:15; Start 03/15/17 at 14:15; Stop 03/15/17 at 22:14; Status DC Cefoxitin Sodium 100 ml @ As Directed STK-MED ONCE IV ; Start 03/15/17 at 14:53 ; Stop 03/15/17 at 14:54; Status DC Enoxaparin Sodium (Lovenox 40mg Syringe) 40 mg Q24H SQ ; Start 03/15/17 at 15:30 ; Stop 03/16/17 at 14:38; Status DC Sodium Chloride (Normal Saline Flush) 3 ml QSHIFT PRN IV AFTER MEDS AND BLOOD DRAWS; Start 03/15/17 at 15:30 Ringer's Solution 1,000 ml @ 100 mls/hr Q10H IV Last administered on 06:15; Start 03/15/17 at 15:19 Acetaminophen/ Hydrocodone Bitart (Lortab 5/325) 1 tab PRN Q4HRS PRN PO MILD PAIN Last administered on 03/16/17 02:56; Start 03/15/17 at 15:30; Stop at 13:05; Status DC Ketorolac Tromethamine (Toradol) 15 mg PRN Q6HRS PRN IV PAIN; Start 03/15/17 at 15:30; Stop 03/16/17 at 09:05; Status DC Morphine Sulfate 2 mg PRN Q1HR PRN IV PAIN Last administered on 03/16/17 13:02 ; Start 03/15/17 at 15:30 Docusate Sodium (Colace) 100 mg BID PO Last administered on 03/17/17 13:04; Start 03/15/17 at 21:00 Ondansetron HCl (Zofran) 4 mg PRN Q6HRS PRN IV NAUESA, 1ST CHOICE Last administered on 03/20/17 06:15; Start 03/15/17 at 15:30 Piperacillin Sod/ Tazobactam Sod 3.375 gm/Sodium Chloride 50 ml @ 100 mls/hr Q6HRS IV Last administered on 03/20/17 06:15; Start 03/15/17 at 18:00 Morphine Sulfate 10 mg STK-MED ONCE .ROUTE ; Start 03/15/17 at 15:32; Stop 03/15 at 15:33; Status DC Ringer's Solution 1,000 ml @ 125 mls/hr Q8H IV Last administered on 03/16/17 00:51; Start 03/15/17 at 15:42; Stop 03/16/17 at 03:41; Status DC Lidocaine HCl (Xylocaine-Mpf 1% Vial) 0.5 ml 1X PRN PRN INJ IV START; Start at 15:45; Stop 03/16/17 at 15:44; Status DC Ringer's Solution 1,000 ml @ 125 mls/hr Q8H IV ; Start 03/15/17 at 15:42; Stop 03/15/17 at 21:41; Status DC Fentanyl Citrate (Fentanyl 2ml Vial) 25 mcg PRN Q5MIN PRN IV Acute Pain; Start 03/15/17 at 15:45; Stop 03/16/17 at 09:05; Status DC Fentanyl Citrate (Fentanyl 2ml Vial) 50 mcg PRN Q5MIN PRN IV Acute Pain Last administered on 03/15/17 15:58; Start 03/15/17 at 15:45; Stop 03/16/17 at 09:05 ; Status DC Morphine Sulfate 2 mg PRN Q10MIN PRN IV Mild Pain; Start 03/15/17 at 15:45; Stop 03/16/17 at 09:05; Status DC Morphine Sulfate 4 mg PRN Q10MIN PRN IV Moderate Pain; Start 03/15/17 at 15:45 ; Stop 03/16/17 at 09:05; Status DC Ondansetron HCl (Zofran) 4 mg PRN Q6HRS PRN IV Nausea, 1st Choice; Start at 15:45; Stop 03/16/17 at 09:05; Status DC Metoclopramide HCl (Reglan) 10 mg PRN Q6HRS PRN IV Nausea/Vomiting, 2nd Choice Last administered on 03/15/17 18:49; Start 03/15/17 at 15:45; Stop 03/16/17 at 15:44; Status DC Diphenhydramine HCl (Benadryl) 12.5 mg PRN Q2HR PRN IV ITCHING; Start 03/15/17 at 15:45; Stop 03/16/17 at 15:44; Status DC Albuterol Sulfate (Ventolin Neb Soln) 2.5 mg PRN 1X PRN NEB Shortness of Breath , Wheezing; Start 03/15/17 at 15:45; Stop 03/16/17 at 15:44; Status DC Dexamethasone Sodium Phosphate (Decadron) 8 mg 1X PRN PRN IV 3RD CHOICE FOR NAUSEA; Start 03/15/17 at 15:45; Stop 03/16/17 at 15:44; Status DC Meperidine HCl (Demerol) 10 mg 1X PERIOP PRN IV SHIVERING; Start 03/15/17 at 15 :45; Stop 03/16/17 at 15:44; Status DC Meperidine HCl (Demerol) 15 mg 1X PERIOP PRN IV SHIVERING; Start 03/15/17 at 15 :45; Stop 03/16/17 at 15:44; Status DC Prochlorperazine Edisylate (Compazine) 10 mg STK-MED ONCE .ROUTE ; Start at 15:48; Stop 03/15/17 at 15:49; Status DC Prochlorperazine Maleate (Compazine) 5 mg 1X PACU PRN PO NAUSEA/VOMITING; Start 03/15/17 at 16:00; Stop 03/19/17 at 19:03; Status DC Hydromorphone HCl (Dilaudid) 0.5 mg PRN Q10MIN PRN IV PAIN Last administered on 03/15/17 16:52; Start 03/15/17 at 16:15; Stop 03/16/17 at 09:05; Status DC Acetaminophen/ Hydrocodone Bitart (Lortab 5/325) 2 tab PRN Q4HRS PRN PO PAIN Last administered on 03/16/17 10:16; Start 03/16/17 at 09:15; Stop 03/16/17 at 13:05; Status DC Multivitamins (Thera M Plus) 1 tab DAILY PO Last administered on 03/20/17 08: 48; Start 03/16/17 at 13:00 Pantoprazole Sodium (Protonix) 40 mg DAILYAC PO Last administered on 03/20/17 08:48; Start 03/16/17 at 13:00 Oxycodone/ Acetaminophen (Percocet 7.5/ 325) 1 tab PRN Q4HRS PRN PO PAIN Last administered on 03/20/17 06:16; Start 03/16/17 at 13:15 Morphine Sulfate 4 mg PRN Q2HR PRN IV PAIN Last administered on 03/18/17 14:11 ; Start 03/16/17 at 13:15 Enoxaparin Sodium (Lovenox 40mg Syringe) 40 mg Q12HR SQ Last administered on 08:47; Start 03/16/17 at 21:00 Iohexol (Omnipaque 300 Mg/ml) 75 ml 1X ONCE IV Last administered on 03/17/17 08:00; Start 03/17/17 at 08:00; Stop 03/17/17 at 08:01; Status DC Iohexol (Omnipaque 240 Mg/ml) 50 ml 1X ONCE PO Last administered on 03/17/17 08:00; Start 03/17/17 at 08:00; Stop 03/17/17 at 08:01; Status DC Info (Do NOT chart on this entry -- for MONITORING) 1 each PRN DAILY PRN MC SEE COMMENTS; Start 03/17/17 at 07:45; Stop 03/19/17 at 07:44; Status DC Sodium Chloride 1,000 ml @ 1,000 mls/hr 1X ONCE IV Last administered on 08:00; Start 03/17/17 at 08:00; Stop 03/17/17 at 08:59; Status DC Vancomycin HCl (Vanco Per Pharmacy) 1 each PRN DAILY PRN MC SEE COMMENTS Last administered on 03/18/17 14:24; Start 03/17/17 at 08:00; Stop 03/19/17 at 11:10 ; Status DC Fluconazole/ Sodium Chloride 200 ml @ 100 mls/hr Q24H IV Last administered on 03/20/17 08:48; Start 03/17/17 at 09:00 Vancomycin HCl 2 gm/Sodium Chloride 500 ml @ 250 mls/hr 1X ONCE IV Last administered on 03/17/17 13:08; Start 03/17/17 at 09:00; Stop 03/17/17 at 10:59 ; Status DC Acetaminophen (Tylenol) 650 mg PRN Q6HRS PRN PO FEVER Last administered on 03/17 14:12; Start 03/17/17 at 08:15 Vancomycin HCl 2 gm/Sodium Chloride 500 ml @ 250 mls/hr Q8H IV Last administered on 03/19/17 05:41; Start 03/17/17 at 22:00; Stop 03/19/17 at 11:10 ; Status DC Vancomycin HCl 1 each 1X ONCE MC ; Start 03/18/17 at 13:30; Stop 03/18/17 at 13 :31; Status DC Calcium Carbonate/ Glycine (Tums) 1,000 mg PRN Q4HRS PRN PO INDIGESTION Last administered on 03/17/17 23:57; Start 03/17/17 at 23:45 Potassium Chloride (Klor-Con) 40 meq 1X ONCE PO Last administered on 14:14; Start 03/18/17 at 12:45; Stop 03/18/17 at 12:46; Status DC Vancomycin HCl 1 each 1X ONCE MC ; Start 03/19/17 at 13:30; Stop 03/19/17 at 13 :30; Status DC Sodium Chloride 1,000 ml @ 1,000 mls/hr 1X ONCE IV Last administered on 14:28; Start 03/19/17 at 12:15; Stop 03/19/17 at 13:14; Status DC Active Scripts Active Reported Multivitamins (Multivitamin) 1 Each Tablet 1 Tab PO DAILY Omeprazole 20 Mg Capsule. 1 Cap PO DAILY Vitals/I & O Vital Sign - Last 24 Hours 03/19/17 03/19/17 03/19/17 03/19/17 11:00 11:08 15:00 18:37 Temp 97.8 97.7 97.8 97.7 Pulse 92 67 Resp 18 22 18 20 B/P (MAP) 108/64 (79) 135/98 (110) Pulse Ox 94 95 O2 Delivery Room Air Room Air Room Air Room Air 03/19/17 03/19/17 03/20/17 03/20/17 19:00 23:00 00:57 02:01 Temp 98.6 97.9 98.6 97.9 Pulse 100 87 Resp 18 16 20 22 B/P (MAP) 118/69 (85) 110/74 (86) Pulse Ox 93 95 O2 Delivery Room Air Room Air Room Air 03/20/17 03/20/17 03/20/17 03/20/17 03:00 06:16 07:00 07:30 Temp 97.9 98.1 97.9 98.1 Pulse 70 70 Resp 18 22 18 B/P (MAP) 106/62 (77) 116/79 (91) Pulse Ox 92 94 92 O2 Delivery Room Air Room Air Room Air Room Air ADELITA FREEMAN MD Mar 20, 2017 10:43
[2017-03-20 11:00] VITALS: BP 131/77
[2017-03-20] MEDS ORDERED: MAG HYDROX/ALUMINUM HYD/SIMETH 30 ML ORAL.SUSP PO PRN (11:15)
--- NOTE | 2017-03-20 11:22 | PDOC ---
SURGICAL PROGRESS NOTE Subjective dry heaves this AM pain improved, still present Vital Signs Vital Signs Date Time Temp Pulse Resp B/P (MAP) Pulse Ox O2 Delivery O2 Flow Rate FiO2 03/20/17 07:30 92 Room Air 03/20/17 07:00 98.1 70 18 116/79 (91) 98.1 03/19/17 08:00 2.0 General: Alert, Oriented X3, Cooperative, No acute distress Abdomen: Soft, Other (lap sites c/d/i, no erythema ) Labs Laboratory Tests Test 03/19/17 05:30 03/20/17 06:20 White Blood Count 6.9 x10^3/uL (4.0-11.0) 8.2 x10^3/uL (4.0-11.0) Red Blood Count 3.70 x10^6/uL (3.50-5.40) 3.96 x10^6/uL (3.50-5.40) Hemoglobin 11.3 g/dL (12.0-15.5) 12.0 g/dL (12.0-15.5) Hematocrit 33.6 % (36.0-47.0) 35.5 % (36.0-47.0) Mean Corpuscular Volume 91 fL (79-100) 90 fL (79-100) Mean Corpuscular Hemoglobin 31 pg (25-35) 30 pg (25-35) Mean Corpuscular Hemoglobin Concent 34 g/dL (31-37) 34 g/dL (31-37) Red Cell Distribution Width 15.4 % (11.5-14.5) 15.6 % (11.5-14.5) Platelet Count 141 x10^3/uL (140-400) 190 x10^3/uL (140-400) Neutrophils (%) (Auto) 65 % (31-73) 62 % (31-73) Lymphocytes (%) (Auto) 18 % (24-48) 21 % (24-48) Monocytes (%) (Auto) 12 % (0-9) 11 % (0-9) Eosinophils (%) (Auto) 4 % (0-3) 5 % (0-3) Basophils (%) (Auto) 1 % (0-3) 1 % (0-3) Neutrophils # (Auto) 4.4 x10^3uL (1.8-7.7) 5.1 x10^3uL (1.8-7.7) Lymphocytes # (Auto) 1.3 x10^3/uL (1.0-4.8) 1.7 x10^3/uL (1.0-4.8) Monocytes # (Auto) 0.8 x10^3/uL (0.0-1.1) 0.9 x10^3/uL (0.0-1.1) Eosinophils # (Auto) 0.3 x10^3/uL (0.0-0.7) 0.4 x10^3/uL (0.0-0.7) Basophils # (Auto) 0.0 x10^3/uL (0.0-0.2) 0.1 x10^3/uL (0.0-0.2) Sodium Level 142 mmol/L (136-145) 142 mmol/L (136-145) Potassium Level 3.6 mmol/L (3.5-5.1) 3.8 mmol/L (3.5-5.1) Chloride Level 107 mmol/L (98-107) 107 mmol/L (98-107) Carbon Dioxide Level 24 mmol/L (21-32) 24 mmol/L (21-32) Anion Gap 11 (6-14) 11 (6-14) Blood Urea Nitrogen 9 mg/dL (7-20) 15 mg/dL (7-20) Creatinine 2.0 mg/dL (0.6-1.0) 3.9 mg/dL (0.6-1.0) Estimated GFR (Cockcroft-Gault) 29.7 13.7 Glucose Level 81 mg/dL (70-99) 85 mg/dL (70-99) Calcium Level 8.1 mg/dL (8.5-10.1) 8.3 mg/dL (8.5-10.1) Laboratory Tests Test 03/20/17 06:20 White Blood Count 8.2 x10^3/uL (4.0-11.0) Red Blood Count 3.96 x10^6/uL (3.50-5.40) Hemoglobin 12.0 g/dL (12.0-15.5) Hematocrit 35.5 % (36.0-47.0) Mean Corpuscular Volume 90 fL (79-100) Mean Corpuscular Hemoglobin 30 pg (25-35) Mean Corpuscular Hemoglobin Concent 34 g/dL (31-37) Red Cell Distribution Width 15.6 % (11.5-14.5) Platelet Count 190 x10^3/uL (140-400) Neutrophils (%) (Auto) 62 % (31-73) Lymphocytes (%) (Auto) 21 % (24-48) Monocytes (%) (Auto) 11 % (0-9) Eosinophils (%) (Auto) 5 % (0-3) Basophils (%) (Auto) 1 % (0-3) Neutrophils # (Auto) 5.1 x10^3uL (1.8-7.7) Lymphocytes # (Auto) 1.7 x10^3/uL (1.0-4.8) Monocytes # (Auto) 0.9 x10^3/uL (0.0-1.1) Eosinophils # (Auto) 0.4 x10^3/uL (0.0-0.7) Basophils # (Auto) 0.1 x10^3/uL (0.0-0.2) Sodium Level 142 mmol/L (136-145) Potassium Level 3.8 mmol/L (3.5-5.1) Chloride Level 107 mmol/L (98-107) Carbon Dioxide Level 24 mmol/L (21-32) Anion Gap 11 (6-14) Blood Urea Nitrogen 15 mg/dL (7-20) Creatinine 3.9 mg/dL (0.6-1.0) Estimated GFR (Cockcroft-Gault) 13.7 Glucose Level 85 mg/dL (70-99) Calcium Level 8.3 mg/dL (8.5-10.1) Problem List s/p appy now with EMILY, cr 3.9, renal sono and renal consult pending 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
--- NOTE | 2017-03-20 11:38 | PDOC2 ---
CONSULT Date of Consult Date of Consult DATE: 03/20/17 TIME: 11:33 Reason for Consult Reason for Consult: EMILY Referring Physician Referring Physician: ARLEY Identification/Chief Complaint Chief Complaint ABD PAIN Problems: Source Source: Chart review, Patient History of Present Illness Reason for Visit: THIS IS A VERY PLEASANT 26 YR OLD WITH GASTRIC SLEEVE SURGERY LAST MONTH. SHE PRESENTS WITH ABD PAIN AND SUBSEQUENTLY HAS UNDERGONE A LAP APPY. . CR WAS 0.8 ON ADMIT AND NOW 3.9. NO CKD HX NOTED. HAS NOTED SOME DECREASE IN URINATION. NO NSAIDS. SHE DID HAVE A CT WITH CONTRAST Past Medical History GI: GERD Past Surgical History Past Surgical History: Other (gastric sleeve last month, lost 30 lbs since) Family History Family History: No Significant Social History No ALCOHOL: none Current Medications Current Medications Current Medications Dexamethasone Sodium Phosphate (Decadron) 20 mg STK-MED ONCE .ROUTE ; Start 03/15/17 at 14:06; Stop 03/15/17 at 14:07; Status DC Ondansetron HCl (Zofran) 4 mg STK-MED ONCE .ROUTE ; Start 03/15/17 at 14:06; Stop 03/15/17 at 14:07; Status DC Propofol 20 ml @ As Directed STK-MED ONCE IV ; Start 03/15/17 at 14:06; Stop at 14:07; Status DC Lidocaine HCl (Lidocaine Pf 2% Vial) 5 ml STK-MED ONCE .ROUTE ; Start 03/15/17 at 14:06; Stop 03/15/17 at 14:07; Status DC Midazolam HCl (Versed) 2 mg STK-MED ONCE .ROUTE ; Start 03/15/17 at 14:06; Stop 03/15/17 at 14:07; Status DC Fentanyl Citrate (Fentanyl 2ml Vial) 100 mcg STK-MED ONCE .ROUTE ; Start at 14:06; Stop 03/15/17 at 14:07; Status DC Rocuronium Butler (Zemuron) 100 mg STK-MED ONCE .ROUTE ; Start 03/15/17 at 14: 07; Stop 03/15/17 at 14:08; Status DC Succinylcholine Chloride (Anectine) 200 mg STK-MED ONCE .ROUTE ; Start 03/15/17 at 14:07; Stop 03/15/17 at 14:08; Status DC Bupivacaine HCl/ Epinephrine Bitart (Marcaine-Epi 0.5%-[id number]) 50 ml STK-MED ONCE .ROUTE Last administered on 03/15/17 14:54; Start 03/15/17 at 13:07; Stop 03/15/17 at 14:08; Status DC Cefoxitin Sodium 2 gm/Sodium Chloride 100 ml @ 200 mls/hr 1X PREOP IV Last administered on 03/15/17 14:55; Start 03/15/17 at 16:00; Stop 03/16/17 at 14:41 ; Status DC Sodium Chloride 1,000 ml @ 125 mls/hr 1X ONCE IV Last administered on 14:15; Start 03/15/17 at 14:15; Stop 03/15/17 at 22:14; Status DC Cefoxitin Sodium 100 ml @ As Directed STK-MED ONCE IV ; Start 03/15/17 at 14:53 ; Stop 03/15/17 at 14:54; Status DC Enoxaparin Sodium (Lovenox 40mg Syringe) 40 mg Q24H SQ ; Start 03/15/17 at 15:30 ; Stop 03/16/17 at 14:38; Status DC Sodium Chloride (Normal Saline Flush) 3 ml QSHIFT PRN IV AFTER MEDS AND BLOOD DRAWS; Start 03/15/17 at 15:30 Ringer's Solution 1,000 ml @ 100 mls/hr Q10H IV Last administered on 06:15; Start 03/15/17 at 15:19 Acetaminophen/ Hydrocodone Bitart (Lortab 5/325) 1 tab PRN Q4HRS PRN PO MILD PAIN Last administered on 03/16/17 02:56; Start 03/15/17 at 15:30; Stop at 13:05; Status DC Ketorolac Tromethamine (Toradol) 15 mg PRN Q6HRS PRN IV PAIN; Start 03/15/17 at 15:30; Stop 03/16/17 at 09:05; Status DC Morphine Sulfate 2 mg PRN Q1HR PRN IV PAIN Last administered on 03/16/17 13:02 ; Start 03/15/17 at 15:30 Docusate Sodium (Colace) 100 mg BID PO Last administered on 03/17/17 13:04; Start 03/15/17 at 21:00 Ondansetron HCl (Zofran) 4 mg PRN Q6HRS PRN IV NAUESA, 1ST CHOICE Last administered on 03/20/17 06:15; Start 03/15/17 at 15:30 Piperacillin Sod/ Tazobactam Sod 3.375 gm/Sodium Chloride 50 ml @ 100 mls/hr Q6HRS IV Last administered on 03/20/17 06:15; Start 03/15/17 at 18:00 Morphine Sulfate 10 mg STK-MED ONCE .ROUTE ; Start 03/15/17 at 15:32; Stop 03/15 at 15:33; Status DC Ringer's Solution 1,000 ml @ 125 mls/hr Q8H IV Last administered on 03/16/17 00:51; Start 03/15/17 at 15:42; Stop 03/16/17 at 03:41; Status DC Lidocaine HCl (Xylocaine-Mpf 1% Vial) 0.5 ml 1X PRN PRN INJ IV START; Start at 15:45; Stop 03/16/17 at 15:44; Status DC Ringer's Solution 1,000 ml @ 125 mls/hr Q8H IV ; Start 03/15/17 at 15:42; Stop 03/15/17 at 21:41; Status DC Fentanyl Citrate (Fentanyl 2ml Vial) 25 mcg PRN Q5MIN PRN IV Acute Pain; Start 03/15/17 at 15:45; Stop 03/16/17 at 09:05; Status DC Fentanyl Citrate (Fentanyl 2ml Vial) 50 mcg PRN Q5MIN PRN IV Acute Pain Last administered on 03/15/17 15:58; Start 03/15/17 at 15:45; Stop 03/16/17 at 09:05 ; Status DC Morphine Sulfate 2 mg PRN Q10MIN PRN IV Mild Pain; Start 03/15/17 at 15:45; Stop 03/16/17 at 09:05; Status DC Morphine Sulfate 4 mg PRN Q10MIN PRN IV Moderate Pain; Start 03/15/17 at 15:45 ; Stop 03/16/17 at 09:05; Status DC Ondansetron HCl (Zofran) 4 mg PRN Q6HRS PRN IV Nausea, 1st Choice; Start at 15:45; Stop 03/16/17 at 09:05; Status DC Metoclopramide HCl (Reglan) 10 mg PRN Q6HRS PRN IV Nausea/Vomiting, 2nd Choice Last administered on 03/15/17 18:49; Start 03/15/17 at 15:45; Stop 03/16/17 at 15:44; Status DC Diphenhydramine HCl (Benadryl) 12.5 mg PRN Q2HR PRN IV ITCHING; Start 03/15/17 at 15:45; Stop 03/16/17 at 15:44; Status DC Albuterol Sulfate (Ventolin Neb Soln) 2.5 mg PRN 1X PRN NEB Shortness of Breath , Wheezing; Start 03/15/17 at 15:45; Stop 03/16/17 at 15:44; Status DC Dexamethasone Sodium Phosphate (Decadron) 8 mg 1X PRN PRN IV 3RD CHOICE FOR NAUSEA; Start 03/15/17 at 15:45; Stop 03/16/17 at 15:44; Status DC Meperidine HCl (Demerol) 10 mg 1X PERIOP PRN IV SHIVERING; Start 03/15/17 at 15 :45; Stop 03/16/17 at 15:44; Status DC Meperidine HCl (Demerol) 15 mg 1X PERIOP PRN IV SHIVERING; Start 03/15/17 at 15 :45; Stop 03/16/17 at 15:44; Status DC Prochlorperazine Edisylate (Compazine) 10 mg STK-MED ONCE .ROUTE ; Start at 15:48; Stop 03/15/17 at 15:49; Status DC Prochlorperazine Maleate (Compazine) 5 mg 1X PACU PRN PO NAUSEA/VOMITING; Start 03/15/17 at 16:00; Stop 03/19/17 at 19:03; Status DC Hydromorphone HCl (Dilaudid) 0.5 mg PRN Q10MIN PRN IV PAIN Last administered on 03/15/17 16:52; Start 03/15/17 at 16:15; Stop 03/16/17 at 09:05; Status DC Acetaminophen/ Hydrocodone Bitart (Lortab 5/325) 2 tab PRN Q4HRS PRN PO PAIN Last administered on 03/16/17 10:16; Start 03/16/17 at 09:15; Stop 03/16/17 at 13:05; Status DC Multivitamins (Thera M Plus) 1 tab DAILY PO Last administered on 03/20/17 08: 48; Start 03/16/17 at 13:00 Pantoprazole Sodium (Protonix) 40 mg DAILYAC PO Last administered on 03/20/17 08:48; Start 03/16/17 at 13:00; Stop 03/20/17 at 11:14; Status DC Oxycodone/ Acetaminophen (Percocet 7.5/ 325) 1 tab PRN Q4HRS PRN PO PAIN Last administered on 03/20/17 06:16; Start 03/16/17 at 13:15 Morphine Sulfate 4 mg PRN Q2HR PRN IV PAIN Last administered on 03/18/17 14:11 ; Start 03/16/17 at 13:15 Enoxaparin Sodium (Lovenox 40mg Syringe) 40 mg Q12HR SQ Last administered on 08:47; Start 03/16/17 at 21:00 Iohexol (Omnipaque 300 Mg/ml) 75 ml 1X ONCE IV Last administered on 03/17/17 08:00; Start 03/17/17 at 08:00; Stop 03/17/17 at 08:01; Status DC Iohexol (Omnipaque 240 Mg/ml) 50 ml 1X ONCE PO Last administered on 03/17/17 08:00; Start 03/17/17 at 08:00; Stop 03/17/17 at 08:01; Status DC Info (Do NOT chart on this entry -- for MONITORING) 1 each PRN DAILY PRN MC SEE COMMENTS; Start 03/17/17 at 07:45; Stop 03/19/17 at 07:44; Status DC Sodium Chloride 1,000 ml @ 1,000 mls/hr 1X ONCE IV Last administered on 08:00; Start 03/17/17 at 08:00; Stop 03/17/17 at 08:59; Status DC Vancomycin HCl (Vanco Per Pharmacy) 1 each PRN DAILY PRN MC SEE COMMENTS Last administered on 03/18/17 14:24; Start 03/17/17 at 08:00; Stop 03/19/17 at 11:10 ; Status DC Fluconazole/ Sodium Chloride 200 ml @ 100 mls/hr Q24H IV Last administered on 03/20/17 08:48; Start 03/17/17 at 09:00 Vancomycin HCl 2 gm/Sodium Chloride 500 ml @ 250 mls/hr 1X ONCE IV Last administered on 03/17/17 13:08; Start 03/17/17 at 09:00; Stop 03/17/17 at 10:59 ; Status DC Acetaminophen (Tylenol) 650 mg PRN Q6HRS PRN PO FEVER Last administered on 03/17 14:12; Start 03/17/17 at 08:15 Vancomycin HCl 2 gm/Sodium Chloride 500 ml @ 250 mls/hr Q8H IV Last administered on 03/19/17 05:41; Start 03/17/17 at 22:00; Stop 03/19/17 at 11:10 ; Status DC Vancomycin HCl 1 each 1X ONCE MC ; Start 03/18/17 at 13:30; Stop 03/18/17 at 13 :31; Status DC Calcium Carbonate/ Glycine (Tums) 1,000 mg PRN Q4HRS PRN PO INDIGESTION Last administered on 03/17/17 23:57; Start 03/17/17 at 23:45 Potassium Chloride (Klor-Con) 40 meq 1X ONCE PO Last administered on 14:14; Start 03/18/17 at 12:45; Stop 03/18/17 at 12:46; Status DC Vancomycin HCl 1 each 1X ONCE MC ; Start 03/19/17 at 13:30; Stop 03/19/17 at 13 :30; Status DC Sodium Chloride 1,000 ml @ 1,000 mls/hr 1X ONCE IV Last administered on 14:28; Start 03/19/17 at 12:15; Stop 03/19/17 at 13:14; Status DC Pantoprazole Sodium (Protonix) 40 mg BIDAC PO ; Start 03/20/17 at 16:30 Simethicone (Gas-X) 80 mg PRN AFTMEALHC PRN PO GAS / BLOATING; Start 03/20/17 at 11:15 Al Hydroxide/Mg Hydroxide (Mylanta Plus Xs) 30 ml PRN Q2HR PRN PO HEARTBURN / GAS; Start 03/20/17 at 11:15 Active Scripts Active Reported Multivitamins (Multivitamin) 1 Each Tablet 1 Tab PO DAILY Omeprazole 20 Mg Capsule. 1 Cap PO DAILY Allergies Allergies: Coded Allergies: NSAIDS (Non-Steroidal Anti-Inflamma (Verified Allergy, Unknown, 03/15/17) PATIENT STATES THAT SHE CANNOT HAVE NSAIDS SINCE HER GASTRIC SLEEVE THAT COMPLETED 02/2017 ROS General: YES: Fatigue, Malaise, Appetite PSYCHOLOGICAL ROS: YES: Anxiety, Depression Eyes: Yes Decreased vision HEENT: YES: Angelic ALLERGY AND IMMUNOLOGY: YES: Hives Respiratory: YES: Cough Gastrointestinal: Yes Nausea, Yes Abdominal Pain Genitourinary: YES Other (DECREASED UO) Musculoskeletal: Yes Muscular Weakness Neurological: Yes Weakness Skin: Yes Dry Skin Physical Exam General: Alert, Oriented X3, Cooperative, No acute distress HEENT: Atraumatic, PERRLA Lungs: Clear to auscultation, Normal air movement Heart: Regular rate Abdomen: Normal bowel sounds, Soft Extremities: No clubbing, No cyanosis, No edema Skin: No breakdown, No significant lesion Neuro: Normal speech, Cranial nerves 3-12 NL Psych/Mental Status: Mental status NL, Other (FLAT AFFECT) MUSCULOSKELETAL: No deformity, No swelling Vitals VITALS Vital Signs Date Time Temp Pulse Resp B/P (MAP) Pulse Ox O2 Delivery O2 Flow Rate FiO2 03/20/17 07:30 92 Room Air 03/20/17 07:00 98.1 70 18 116/79 (91) 98.1 03/19/17 08:00 2.0 Labs Labs Laboratory Tests Test 03/19/17 05:30 03/20/17 06:20 White Blood Count 6.9 x10^3/uL (4.0-11.0) 8.2 x10^3/uL (4.0-11.0) Red Blood Count 3.70 x10^6/uL (3.50-5.40) 3.96 x10^6/uL (3.50-5.40) Hemoglobin 11.3 g/dL (12.0-15.5) 12.0 g/dL (12.0-15.5) Hematocrit 33.6 % (36.0-47.0) 35.5 % (36.0-47.0) Mean Corpuscular Volume 91 fL (79-100) 90 fL (79-100) Mean Corpuscular Hemoglobin 31 pg (25-35) 30 pg (25-35) Mean Corpuscular Hemoglobin Concent 34 g/dL (31-37) 34 g/dL (31-37) Red Cell Distribution Width 15.4 % (11.5-14.5) 15.6 % (11.5-14.5) Platelet Count 141 x10^3/uL (140-400) 190 x10^3/uL (140-400) Neutrophils (%) (Auto) 65 % (31-73) 62 % (31-73) Lymphocytes (%) (Auto) 18 % (24-48) 21 % (24-48) Monocytes (%) (Auto) 12 % (0-9) 11 % (0-9) Eosinophils (%) (Auto) 4 % (0-3) 5 % (0-3) Basophils (%) (Auto) 1 % (0-3) 1 % (0-3) Neutrophils # (Auto) 4.4 x10^3uL (1.8-7.7) 5.1 x10^3uL (1.8-7.7) Lymphocytes # (Auto) 1.3 x10^3/uL (1.0-4.8) 1.7 x10^3/uL (1.0-4.8) Monocytes # (Auto) 0.8 x10^3/uL (0.0-1.1) 0.9 x10^3/uL (0.0-1.1) Eosinophils # (Auto) 0.3 x10^3/uL (0.0-0.7) 0.4 x10^3/uL (0.0-0.7) Basophils # (Auto) 0.0 x10^3/uL (0.0-0.2) 0.1 x10^3/uL (0.0-0.2) Sodium Level 142 mmol/L (136-145) 142 mmol/L (136-145) Potassium Level 3.6 mmol/L (3.5-5.1) 3.8 mmol/L (3.5-5.1) Chloride Level 107 mmol/L (98-107) 107 mmol/L (98-107) Carbon Dioxide Level 24 mmol/L (21-32) 24 mmol/L (21-32) Anion Gap 11 (6-14) 11 (6-14) Blood Urea Nitrogen 9 mg/dL (7-20) 15 mg/dL (7-20) Creatinine 2.0 mg/dL (0.6-1.0) 3.9 mg/dL (0.6-1.0) Estimated GFR (Cockcroft-Gault) 29.7 13.7 Glucose Level 81 mg/dL (70-99) 85 mg/dL (70-99) Calcium Level 8.1 mg/dL (8.5-10.1) 8.3 mg/dL (8.5-10.1) Laboratory Tests Test 03/20/17 06:20 White Blood Count 8.2 x10^3/uL (4.0-11.0) Red Blood Count 3.96 x10^6/uL (3.50-5.40) Hemoglobin 12.0 g/dL (12.0-15.5) Hematocrit 35.5 % (36.0-47.0) Mean Corpuscular Volume 90 fL (79-100) Mean Corpuscular Hemoglobin 30 pg (25-35) Mean Corpuscular Hemoglobin Concent 34 g/dL (31-37) Red Cell Distribution Width 15.6 % (11.5-14.5) Platelet Count 190 x10^3/uL (140-400) Neutrophils (%) (Auto) 62 % (31-73) Lymphocytes (%) (Auto) 21 % (24-48) Monocytes (%) (Auto) 11 % (0-9) Eosinophils (%) (Auto) 5 % (0-3) Basophils (%) (Auto) 1 % (0-3) Neutrophils # (Auto) 5.1 x10^3uL (1.8-7.7) Lymphocytes # (Auto) 1.7 x10^3/uL (1.0-4.8) Monocytes # (Auto) 0.9 x10^3/uL (0.0-1.1) Eosinophils # (Auto) 0.4 x10^3/uL (0.0-0.7) Basophils # (Auto) 0.1 x10^3/uL (0.0-0.2) Sodium Level 142 mmol/L (136-145) Potassium Level 3.8 mmol/L (3.5-5.1) Chloride Level 107 mmol/L (98-107) Carbon Dioxide Level 24 mmol/L (21-32) Anion Gap 11 (6-14) Blood Urea Nitrogen 15 mg/dL (7-20) Creatinine 3.9 mg/dL (0.6-1.0) Estimated GFR (Cockcroft-Gault) 13.7 Glucose Level 85 mg/dL (70-99) Calcium Level 8.3 mg/dL (8.5-10.1) Assessment/Plan Assessment/Plan IMP EMILY-ATN-NO CKD-CR 0.8 TO 3.9-MOST LIKELY DUE TO CONTRAST DEHYDRATION S/P LAP CHOLY S/P GASTRIC SLEEVE SURGERY LAST MONTH PLAN RENAL SONO BLADDER SCAN PLACE GARCIA IVF'S ANTIBIOTICS CHECK UA MARLO MOTTA MD Mar 20, 2017 11:38
--- NOTE | 2017-03-20 12:06 | RAD ---
Indication acute renal failure. Grayscale imaging of the kidneys was performed. No similar imaging is available. The right kidney measures 14.4 x 6.3 x 6.6 cm and appears normal showing no evidence of hydronephrosis or mass. The left kidney measures 14.2 x 6.6 x 7.4 cm and also appears unremarkable. The urinary bladder appears normal. IMPRESSION: Normal morphologic appearance of the kidneys
[2017-03-20 12:21] LABS: BILIRUBIN,URINE NEGATIVE (NEG); GLUCOSE,URINE NEGATIVE (NEG); NITRITE,URINE NEGATIVE (NEG); PROTEIN,URINE NEGATIVE (NEG-TRACE); UROBILINOGEN,URINE 0.2 mg/dL (0.2 mg/dL)
[2017-03-20 12:41] LABS: BACTERIA,URINE 0 /HPF (0-FEW); RBC,URINE OCC /HPF (0-2); SQUAMOUS EPITHELIAL CELL,UR MANY /LPF; WBC,URINE OCC /HPF (0-4)
[2017-03-20 15:00] VITALS: BP 130/90
[2017-03-20 19:00] VITALS: BP 135/87
[2017-03-20 23:00] VITALS: BP 126/70
[2017-03-21] MEDS: PIPERACILLIN/TAZOBACTAM 3.375 GM in IV NORMAL SALINE 50ML 50 ML IV SCH ×2 (00:15→06:20)
[2017-03-21 03:00] VITALS: BP 111/70
[2017-03-21] MEDS: ONDANSETRON PF 4 MG/2 ML VIAL. IV PRN ×2 (04:21→18:51)
[2017-03-21 06:47] LABS: CALCIUM 8.2 mg/dL (8.5-10.1); GFR 10.3; POTASSIUM 3.7 mmol/L (3.5-5.1)
[2017-03-21 07:00] VITALS: BP 141/86
[2017-03-21] MEDS: PANTOPRAZOLE 40 MG TABLET.DR. PO SCH ×2 (08:03→16:55)
[2017-03-21] MEDS: MULTIVITAMIN with MINERAL TABLET. PO SCH (08:07)
[2017-03-21] MEDS: FLUCONAZOLE 400MG/200ML PREMIX 200 ML IV SCH (08:07)
[2017-03-21] MEDS: IV RINGERS,LACTATED 1000ML 1,000 ML IV SCH ×3 (08:07→21:40)
[2017-03-21] MEDS: DOCUSATE SODIUM 100 MG CAPSULE. PO SCH ×2 (08:07→19:55)
[2017-03-21] MEDS: ENOXAPARIN 40 MG/0.4 ML SYRINGE. SQ SCH (08:09)
[2017-03-21] MEDS: oxyCODONE/APAP 7.5/325 1 TAB TABLET PO PRN (08:12)
--- NOTE | 2017-03-21 09:30 | PDOC ---
Infectious Disease Note Subjective Subjective c/o nausea and poor oral intake ROS ROS GEN: Denies fevers, chills, sweats HEENT: Denies blurred vision, sore throat CV: Denies chest pain RESP: Denies shortness of air, cough GI: Denies n/v/d NEURO: Denies confusion, dizziness Vital Sign Vital Signs Vital Signs Date Time Temp Pulse Resp B/P (MAP) Pulse Ox O2 Delivery O2 Flow Rate FiO2 03/21/17 08:12 Room Air 03/21/17 07:00 98.5 85 18 141/86 (104) 96 98.5 03/20/17 15:39 2.0 Physical Exam PHYSICAL EXAM GENERAL: NAD, Alert HEENT: PERRL, OC/OP NECK: Supple, no JVD, no LN LUNGS: Clear HEART: S1S2, no gallop, no murmur ABD: Soft, NT, no organomegaly, no rebound EXT: No edema, no cyanosis 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, 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 x 3, no focal neurologic deficit SKIN: No rash IV: ok Labs Lab Laboratory Tests Test 03/20/17 11:50 03/21/17 06:20 Urine Collection Type U cath Urine Color Yellow Urine Clarity Clear Urine pH 6.0 Urine Specific [place] <=1.005 Urine Protein Negative mg/dL (NEG-TRACE) Urine Glucose (UA) Negative mg/dL (NEG) Urine Ketones (Stick) Trace mg/dL (NEG) Urine Blood Negative (NEG) Urine Nitrite Negative (NEG) Urine Bilirubin Negative (NEG) Urine Urobilinogen Dipstick 0.2 mg/dL (0.2 mg/dL) Urine Leukocyte Esterase Negative (NEG) Urine RBC Occ /HPF (0-2) Urine WBC Occ /HPF (0-4) Urine Squamous Epithelial Cells Many /LPF Urine Bacteria 0 /HPF (0-FEW) Sodium Level 144 mmol/L (136-145) Potassium Level 3.7 mmol/L (3.5-5.1) Chloride Level 108 mmol/L (98-107) Carbon Dioxide Level 22 mmol/L (21-32) Anion Gap 14 (6-14) Blood Urea Nitrogen 19 mg/dL (7-20) Creatinine 5.0 mg/dL (0.6-1.0) Estimated GFR (Cockcroft-Gault) 10.3 Glucose Level 73 mg/dL (70-99) Calcium Level 8.2 mg/dL (8.5-10.1) Objective Assessment Appendicitis s/p appendectomy 03/15 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 s/p Dexamethasone 03/15 vs reactive EMILY Plan Plan of Care Continue Zosyn and Fluconazole Monitor temp, WBC and renal function f/u cultures iv fluids MELISSA VILLANUEVA MD Mar 21, 2017 09:30
--- NOTE | 2017-03-21 09:57 | PDOC ---
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 new face rash, likely contact with the rug, ok to ob for now dvt, gi ppx Vitals Vitals Vital Signs Date Time Temp Pulse Resp B/P (MAP) Pulse Ox O2 Delivery O2 Flow Rate FiO2 03/21/17 08:12 Room Air 03/21/17 07:00 98.5 85 18 141/86 (104) 96 98.5 03/20/17 15:39 2.0 Physical Exam General: Alert, Oriented X3, Cooperative, No acute distress Heart: Regular rate Lungs: Clear Abdomen: Normal bowel sounds, Soft Extremities: No clubbing, No cyanosis, No edema Skin: No breakdown, No significant lesion Labs LABS Laboratory Tests Test 03/20/17 11:50 03/21/17 06:20 Urine Collection Type U cath Urine Color Yellow Urine Clarity Clear Urine pH 6.0 Urine Specific [place] <=1.005 Urine Protein Negative mg/dL (NEG-TRACE) Urine Glucose (UA) Negative mg/dL (NEG) Urine Ketones (Stick) Trace mg/dL (NEG) Urine Blood Negative (NEG) Urine Nitrite Negative (NEG) Urine Bilirubin Negative (NEG) Urine Urobilinogen Dipstick 0.2 mg/dL (0.2 mg/dL) Urine Leukocyte Esterase Negative (NEG) Urine RBC Occ /HPF (0-2) Urine WBC Occ /HPF (0-4) Urine Squamous Epithelial Cells Many /LPF Urine Bacteria 0 /HPF (0-FEW) Sodium Level 144 mmol/L (136-145) Potassium Level 3.7 mmol/L (3.5-5.1) Chloride Level 108 mmol/L (98-107) Carbon Dioxide Level 22 mmol/L (21-32) Anion Gap 14 (6-14) Blood Urea Nitrogen 19 mg/dL (7-20) Creatinine 5.0 mg/dL (0.6-1.0) Estimated GFR (Cockcroft-Gault) 10.3 Glucose Level 73 mg/dL (70-99) Calcium Level 8.2 mg/dL (8.5-10.1) Review of Systems Review of Systems nausea, pain, weakness, dyspnea on exertion Comment Review of Relevant I have reviewed the following items na (where applicable) has been applied. Labs Laboratory Tests Test 03/20/17 06:20 03/20/17 11:50 03/21/17 06:20 White Blood Count 8.2 x10^3/uL (4.0-11.0) Red Blood Count 3.96 x10^6/uL (3.50-5.40) Hemoglobin 12.0 g/dL (12.0-15.5) Hematocrit 35.5 % (36.0-47.0) Mean Corpuscular Volume 90 fL (79-100) Mean Corpuscular Hemoglobin 30 pg (25-35) Mean Corpuscular Hemoglobin Concent 34 g/dL (31-37) Red Cell Distribution Width 15.6 % (11.5-14.5) Platelet Count 190 x10^3/uL (140-400) Neutrophils (%) (Auto) 62 % (31-73) Lymphocytes (%) (Auto) 21 % (24-48) Monocytes (%) (Auto) 11 % (0-9) Eosinophils (%) (Auto) 5 % (0-3) Basophils (%) (Auto) 1 % (0-3) Neutrophils # (Auto) 5.1 x10^3uL (1.8-7.7) Lymphocytes # (Auto) 1.7 x10^3/uL (1.0-4.8) Monocytes # (Auto) 0.9 x10^3/uL (0.0-1.1) Eosinophils # (Auto) 0.4 x10^3/uL (0.0-0.7) Basophils # (Auto) 0.1 x10^3/uL (0.0-0.2) Sodium Level 142 mmol/L (136-145) 144 mmol/L (136-145) Potassium Level 3.8 mmol/L (3.5-5.1) 3.7 mmol/L (3.5-5.1) Chloride Level 107 mmol/L (98-107) 108 mmol/L (98-107) Carbon Dioxide Level 24 mmol/L (21-32) 22 mmol/L (21-32) Anion Gap 11 (6-14) 14 (6-14) Blood Urea Nitrogen 15 mg/dL (7-20) 19 mg/dL (7-20) Creatinine 3.9 mg/dL (0.6-1.0) 5.0 mg/dL (0.6-1.0) Estimated GFR (Cockcroft-Gault) 13.7 10.3 Glucose Level 85 mg/dL (70-99) 73 mg/dL (70-99) Calcium Level 8.3 mg/dL (8.5-10.1) 8.2 mg/dL (8.5-10.1) Urine Collection Type U cath Urine Color Yellow Urine Clarity Clear Urine pH 6.0 Urine Specific [place] <=1.005 Urine Protein Negative mg/dL (NEG-TRACE) Urine Glucose (UA) Negative mg/dL (NEG) Urine Ketones (Stick) Trace mg/dL (NEG) Urine Blood Negative (NEG) Urine Nitrite Negative (NEG) Urine Bilirubin Negative (NEG) Urine Urobilinogen Dipstick 0.2 mg/dL (0.2 mg/dL) Urine Leukocyte Esterase Negative (NEG) Urine RBC Occ /HPF (0-2) Urine WBC Occ /HPF (0-4) Urine Squamous Epithelial Cells Many /LPF Urine Bacteria 0 /HPF (0-FEW) Laboratory Tests Test 03/20/17 11:50 03/21/17 06:20 Urine Collection Type U cath Urine Color Yellow Urine Clarity Clear Urine pH 6.0 Urine Specific [place] <=1.005 Urine Protein Negative mg/dL (NEG-TRACE) Urine Glucose (UA) Negative mg/dL (NEG) Urine Ketones (Stick) Trace mg/dL (NEG) Urine Blood Negative (NEG) Urine Nitrite Negative (NEG) Urine Bilirubin Negative (NEG) Urine Urobilinogen Dipstick 0.2 mg/dL (0.2 mg/dL) Urine Leukocyte Esterase Negative (NEG) Urine RBC Occ /HPF (0-2) Urine WBC Occ /HPF (0-4) Urine Squamous Epithelial Cells Many /LPF Urine Bacteria 0 /HPF (0-FEW) Sodium Level 144 mmol/L (136-145) Potassium Level 3.7 mmol/L (3.5-5.1) Chloride Level 108 mmol/L (98-107) Carbon Dioxide Level 22 mmol/L (21-32) Anion Gap 14 (6-14) Blood Urea Nitrogen 19 mg/dL (7-20) Creatinine 5.0 mg/dL (0.6-1.0) Estimated GFR (Cockcroft-Gault) 10.3 Glucose Level 73 mg/dL (70-99) Calcium Level 8.2 mg/dL (8.5-10.1) Microbiology 03/17/17 Blood Culture - Preliminary, Resulted NO GROWTH AFTER 4 DAYS Medications Current Medications Dexamethasone Sodium Phosphate (Decadron) 20 mg STK-MED ONCE .ROUTE ; Start 03/15/17 at 14:06; Stop 03/15/17 at 14:07; Status DC Ondansetron HCl (Zofran) 4 mg STK-MED ONCE .ROUTE ; Start 03/15/17 at 14:06; Stop 03/15/17 at 14:07; Status DC Propofol 20 ml @ As Directed STK-MED ONCE IV ; Start 03/15/17 at 14:06; Stop at 14:07; Status DC Lidocaine HCl (Lidocaine Pf 2% Vial) 5 ml STK-MED ONCE .ROUTE ; Start 03/15/17 at 14:06; Stop 03/15/17 at 14:07; Status DC Midazolam HCl (Versed) 2 mg STK-MED ONCE .ROUTE ; Start 03/15/17 at 14:06; Stop 03/15/17 at 14:07; Status DC Fentanyl Citrate (Fentanyl 2ml Vial) 100 mcg STK-MED ONCE .ROUTE ; Start at 14:06; Stop 03/15/17 at 14:07; Status DC Rocuronium Lentner (Zemuron) 100 mg STK-MED ONCE .ROUTE ; Start 03/15/17 at 14: 07; Stop 03/15/17 at 14:08; Status DC Succinylcholine Chloride (Anectine) 200 mg STK-MED ONCE .ROUTE ; Start 03/15/17 at 14:07; Stop 03/15/17 at 14:08; Status DC Bupivacaine HCl/ Epinephrine Bitart (Marcaine-Epi 0.5%-[id number]) 50 ml STK-MED ONCE .ROUTE Last administered on 03/15/17 14:54; Start 03/15/17 at 13:07; Stop 03/15/17 at 14:08; Status DC Cefoxitin Sodium 2 gm/Sodium Chloride 100 ml @ 200 mls/hr 1X PREOP IV Last administered on 03/15/17 14:55; Start 03/15/17 at 16:00; Stop 03/16/17 at 14:41 ; Status DC Sodium Chloride 1,000 ml @ 125 mls/hr 1X ONCE IV Last administered on 14:15; Start 03/15/17 at 14:15; Stop 03/15/17 at 22:14; Status DC Cefoxitin Sodium 100 ml @ As Directed STK-MED ONCE IV ; Start 03/15/17 at 14:53 ; Stop 03/15/17 at 14:54; Status DC Enoxaparin Sodium (Lovenox 40mg Syringe) 40 mg Q24H SQ ; Start 03/15/17 at 15:30 ; Stop 03/16/17 at 14:38; Status DC Sodium Chloride (Normal Saline Flush) 3 ml QSHIFT PRN IV AFTER MEDS AND BLOOD DRAWS; Start 03/15/17 at 15:30 Ringer's Solution 1,000 ml @ 100 mls/hr Q10H IV Last administered on 08:07; Start 03/15/17 at 15:19 Acetaminophen/ Hydrocodone Bitart (Lortab 5/325) 1 tab PRN Q4HRS PRN PO MILD PAIN Last administered on 03/16/17 02:56; Start 03/15/17 at 15:30; Stop at 13:05; Status DC Ketorolac Tromethamine (Toradol) 15 mg PRN Q6HRS PRN IV PAIN; Start 03/15/17 at 15:30; Stop 03/16/17 at 09:05; Status DC Morphine Sulfate 2 mg PRN Q1HR PRN IV PAIN Last administered on 03/16/17 13:02 ; Start 03/15/17 at 15:30 Docusate Sodium (Colace) 100 mg BID PO Last administered on 03/17/17 13:04; Start 03/15/17 at 21:00 Ondansetron HCl (Zofran) 4 mg PRN Q6HRS PRN IV NAUESA, 1ST CHOICE Last administered on 03/21/17 04:21; Start 03/15/17 at 15:30 Piperacillin Sod/ Tazobactam Sod 3.375 gm/Sodium Chloride 50 ml @ 100 mls/hr Q6HRS IV Last administered on 03/21/17 06:20; Start 03/15/17 at 18:00; Stop 03/21/17 at 09:24; Status DC Morphine Sulfate 10 mg STK-MED ONCE .ROUTE ; Start 03/15/17 at 15:32; Stop 03/15 at 15:33; Status DC Ringer's Solution 1,000 ml @ 125 mls/hr Q8H IV Last administered on 03/16/17 00:51; Start 03/15/17 at 15:42; Stop 03/16/17 at 03:41; Status DC Lidocaine HCl (Xylocaine-Mpf 1% Vial) 0.5 ml 1X PRN PRN INJ IV START; Start at 15:45; Stop 03/16/17 at 15:44; Status DC Ringer's Solution 1,000 ml @ 125 mls/hr Q8H IV ; Start 03/15/17 at 15:42; Stop 03/15/17 at 21:41; Status DC Fentanyl Citrate (Fentanyl 2ml Vial) 25 mcg PRN Q5MIN PRN IV Acute Pain; Start 03/15/17 at 15:45; Stop 03/16/17 at 09:05; Status DC Fentanyl Citrate (Fentanyl 2ml Vial) 50 mcg PRN Q5MIN PRN IV Acute Pain Last administered on 03/15/17 15:58; Start 03/15/17 at 15:45; Stop 03/16/17 at 09:05 ; Status DC Morphine Sulfate 2 mg PRN Q10MIN PRN IV Mild Pain; Start 03/15/17 at 15:45; Stop 03/16/17 at 09:05; Status DC Morphine Sulfate 4 mg PRN Q10MIN PRN IV Moderate Pain; Start 03/15/17 at 15:45 ; Stop 03/16/17 at 09:05; Status DC Ondansetron HCl (Zofran) 4 mg PRN Q6HRS PRN IV Nausea, 1st Choice; Start at 15:45; Stop 03/16/17 at 09:05; Status DC Metoclopramide HCl (Reglan) 10 mg PRN Q6HRS PRN IV Nausea/Vomiting, 2nd Choice Last administered on 03/15/17 18:49; Start 03/15/17 at 15:45; Stop 03/16/17 at 15:44; Status DC Diphenhydramine HCl (Benadryl) 12.5 mg PRN Q2HR PRN IV ITCHING; Start 03/15/17 at 15:45; Stop 03/16/17 at 15:44; Status DC Albuterol Sulfate (Ventolin Neb Soln) 2.5 mg PRN 1X PRN NEB Shortness of Breath , Wheezing; Start 03/15/17 at 15:45; Stop 03/16/17 at 15:44; Status DC Dexamethasone Sodium Phosphate (Decadron) 8 mg 1X PRN PRN IV 3RD CHOICE FOR NAUSEA; Start 03/15/17 at 15:45; Stop 03/16/17 at 15:44; Status DC Meperidine HCl (Demerol) 10 mg 1X PERIOP PRN IV SHIVERING; Start 03/15/17 at 15 :45; Stop 03/16/17 at 15:44; Status DC Meperidine HCl (Demerol) 15 mg 1X PERIOP PRN IV SHIVERING; Start 03/15/17 at 15 :45; Stop 03/16/17 at 15:44; Status DC Prochlorperazine Edisylate (Compazine) 10 mg STK-MED ONCE .ROUTE ; Start at 15:48; Stop 03/15/17 at 15:49; Status DC Prochlorperazine Maleate (Compazine) 5 mg 1X PACU PRN PO NAUSEA/VOMITING; Start 03/15/17 at 16:00; Stop 03/19/17 at 19:03; Status DC Hydromorphone HCl (Dilaudid) 0.5 mg PRN Q10MIN PRN IV PAIN Last administered on 03/15/17 16:52; Start 03/15/17 at 16:15; Stop 03/16/17 at 09:05; Status DC Acetaminophen/ Hydrocodone Bitart (Lortab 5/325) 2 tab PRN Q4HRS PRN PO PAIN Last administered on 03/16/17 10:16; Start 03/16/17 at 09:15; Stop 03/16/17 at 13:05; Status DC Multivitamins (Thera M Plus) 1 tab DAILY PO Last administered on 03/20/17 08: 48; Start 03/16/17 at 13:00 Pantoprazole Sodium (Protonix) 40 mg DAILYAC PO Last administered on 03/20/17 08:48; Start 03/16/17 at 13:00; Stop 03/20/17 at 11:14; Status DC Oxycodone/ Acetaminophen (Percocet 7.5/ 325) 1 tab PRN Q4HRS PRN PO PAIN Last administered on 03/21/17 08:12; Start 03/16/17 at 13:15 Morphine Sulfate 4 mg PRN Q2HR PRN IV PAIN Last administered on 03/18/17 14:11 ; Start 03/16/17 at 13:15 Enoxaparin Sodium (Lovenox 40mg Syringe) 40 mg Q12HR SQ Last administered on 08:47; Start 03/16/17 at 21:00; Stop 03/20/17 at 16:57; Status DC Iohexol (Omnipaque 300 Mg/ml) 75 ml 1X ONCE IV Last administered on 03/17/17 08:00; Start 03/17/17 at 08:00; Stop 03/17/17 at 08:01; Status DC Iohexol (Omnipaque 240 Mg/ml) 50 ml 1X ONCE PO Last administered on 03/17/17 08:00; Start 03/17/17 at 08:00; Stop 03/17/17 at 08:01; Status DC Info (Do NOT chart on this entry -- for MONITORING) 1 each PRN DAILY PRN MC SEE COMMENTS; Start 03/17/17 at 07:45; Stop 03/19/17 at 07:44; Status DC Sodium Chloride 1,000 ml @ 1,000 mls/hr 1X ONCE IV Last administered on 08:00; Start 03/17/17 at 08:00; Stop 03/17/17 at 08:59; Status DC Vancomycin HCl (Vanco Per Pharmacy) 1 each PRN DAILY PRN MC SEE COMMENTS Last administered on 03/18/17 14:24; Start 03/17/17 at 08:00; Stop 03/19/17 at 11:10 ; Status DC Fluconazole/ Sodium Chloride 200 ml @ 100 mls/hr Q24H IV Last administered on 03/21/17 08:07; Start 03/17/17 at 09:00; Stop 03/21/17 at 09:24; Status DC Vancomycin HCl 2 gm/Sodium Chloride 500 ml @ 250 mls/hr 1X ONCE IV Last administered on 03/17/17 13:08; Start 03/17/17 at 09:00; Stop 03/17/17 at 10:59 ; Status DC Acetaminophen (Tylenol) 650 mg PRN Q6HRS PRN PO FEVER Last administered on 03/17 14:12; Start 03/17/17 at 08:15 Vancomycin HCl 2 gm/Sodium Chloride 500 ml @ 250 mls/hr Q8H IV Last administered on 03/19/17 05:41; Start 03/17/17 at 22:00; Stop 03/19/17 at 11:10 ; Status DC Vancomycin HCl 1 each 1X ONCE MC ; Start 03/18/17 at 13:30; Stop 03/18/17 at 13 :31; Status DC Calcium Carbonate/ Glycine (Tums) 1,000 mg PRN Q4HRS PRN PO INDIGESTION Last administered on 03/17/17 23:57; Start 03/17/17 at 23:45 Potassium Chloride (Klor-Con) 40 meq 1X ONCE PO Last administered on 14:14; Start 03/18/17 at 12:45; Stop 03/18/17 at 12:46; Status DC Vancomycin HCl 1 each 1X ONCE MC ; Start 03/19/17 at 13:30; Stop 03/19/17 at 13 :30; Status DC Sodium Chloride 1,000 ml @ 1,000 mls/hr 1X ONCE IV Last administered on 14:28; Start 03/19/17 at 12:15; Stop 03/19/17 at 13:14; Status DC Pantoprazole Sodium (Protonix) 40 mg BIDAC PO Last administered on 03/21/17 08:03; Start 03/20/17 at 16:30 Simethicone (Gas-X) 80 mg PRN AFTMEALHC PRN PO GAS / BLOATING; Start 03/20/17 at 11:15 Al Hydroxide/Mg Hydroxide (Mylanta Plus Xs) 30 ml PRN Q2HR PRN PO HEARTBURN / GAS; Start 03/20/17 at 11:15 Enoxaparin Sodium (Lovenox 40mg Syringe) 40 mg DAILY SQ Last administered on 08:09; Start 03/21/17 at 09:00 Fluconazole/ Sodium Chloride 100 ml @ 100 mls/hr Q24H IV ; Start 03/22/17 at 09:00; Stop 03/22/17 at 09:00; Status DC Piperacillin Sod/ Tazobactam Sod 3.375 gm/Sodium Chloride 50 ml @ 100 mls/hr Q12HR IV ; Start 03/21/17 at 21:00; Stop 03/21/17 at 21:00; Status DC Fluconazole/ Sodium Chloride 100 ml @ 100 mls/hr Q24H IV ; Start 03/22/17 at 09:00 Piperacillin Sod/ Tazobactam Sod 2.25 gm/Sodium Chloride 50 ml @ 100 mls/hr Q6HRS IV ; Start 03/21/17 at 12:00 Active Scripts Active Reported Multivitamins (Multivitamin) 1 Each Tablet 1 Tab PO DAILY Omeprazole 20 Mg Capsule.dr 1 Cap PO DAILY Vitals/I & O Vital Sign - Last 24 Hours 03/20/17 03/20/17 03/20/17 03/20/17 11:00 15:00 15:39 19:00 Temp 97.5 97.7 97.9 97.5 97.7 97.9 Pulse 75 82 87 Resp 18 18 18 B/P (MAP) 131/77 (95) 130/90 (103) 135/87 (103) Pulse Ox 93 97 93 95 O2 Delivery Room Air Room Air Room Air Room Air O2 Flow Rate 2.0 03/20/17 03/20/17 03/20/17 03/20/17 20:55 21:49 22:50 23:00 Temp 99.0 99.0 Pulse 84 Resp 18 20 18 B/P (MAP) 126/70 (88) Pulse Ox 93 93 93 O2 Delivery Room Air Room Air Room Air Room Air 03/21/17 03/21/17 03/21/17 03:00 07:00 08:12 Temp 98.7 98.5 98.7 98.5 Pulse 85 85 Resp 18 18 B/P (MAP) 111/70 (84) 141/86 (104) Pulse Ox 95 96 O2 Delivery Room Air Room Air Room Air ADELITA FREEMAN MD Mar 21, 2017 09:57
[2017-03-21 11:00] VITALS: BP 129/81
--- NOTE | 2017-03-21 11:45 | PDOC ---
SURGICAL PROGRESS NOTE Subjective RLQ pain and nausea, some improvement today no vomiting, taking diet Vital Signs Vital Signs Date Time Temp Pulse Resp B/P (MAP) Pulse Ox O2 Delivery O2 Flow Rate FiO2 03/21/17 09:30 Room Air 03/21/17 07:00 98.5 85 18 141/86 (104) 96 98.5 03/20/17 15:39 2.0 General: Alert, Oriented X3, Cooperative, No acute distress Abdomen: Soft, Other (RLQ TTP) Labs Laboratory Tests Test 03/20/17 06:20 03/20/17 11:50 03/21/17 06:20 White Blood Count 8.2 x10^3/uL (4.0-11.0) Red Blood Count 3.96 x10^6/uL (3.50-5.40) Hemoglobin 12.0 g/dL (12.0-15.5) Hematocrit 35.5 % (36.0-47.0) Mean Corpuscular Volume 90 fL (79-100) Mean Corpuscular Hemoglobin 30 pg (25-35) Mean Corpuscular Hemoglobin Concent 34 g/dL (31-37) Red Cell Distribution Width 15.6 % (11.5-14.5) Platelet Count 190 x10^3/uL (140-400) Neutrophils (%) (Auto) 62 % (31-73) Lymphocytes (%) (Auto) 21 % (24-48) Monocytes (%) (Auto) 11 % (0-9) Eosinophils (%) (Auto) 5 % (0-3) Basophils (%) (Auto) 1 % (0-3) Neutrophils # (Auto) 5.1 x10^3uL (1.8-7.7) Lymphocytes # (Auto) 1.7 x10^3/uL (1.0-4.8) Monocytes # (Auto) 0.9 x10^3/uL (0.0-1.1) Eosinophils # (Auto) 0.4 x10^3/uL (0.0-0.7) Basophils # (Auto) 0.1 x10^3/uL (0.0-0.2) Sodium Level 142 mmol/L (136-145) 144 mmol/L (136-145) Potassium Level 3.8 mmol/L (3.5-5.1) 3.7 mmol/L (3.5-5.1) Chloride Level 107 mmol/L (98-107) 108 mmol/L (98-107) Carbon Dioxide Level 24 mmol/L (21-32) 22 mmol/L (21-32) Anion Gap 11 (6-14) 14 (6-14) Blood Urea Nitrogen 15 mg/dL (7-20) 19 mg/dL (7-20) Creatinine 3.9 mg/dL (0.6-1.0) 5.0 mg/dL (0.6-1.0) Estimated GFR (Cockcroft-Gault) 13.7 10.3 Glucose Level 85 mg/dL (70-99) 73 mg/dL (70-99) Calcium Level 8.3 mg/dL (8.5-10.1) 8.2 mg/dL (8.5-10.1) Urine Collection Type U cath Urine Color Yellow Urine Clarity Clear Urine pH 6.0 Urine Specific [place] <=1.005 Urine Protein Negative mg/dL (NEG-TRACE) Urine Glucose (UA) Negative mg/dL (NEG) Urine Ketones (Stick) Trace mg/dL (NEG) Urine Blood Negative (NEG) Urine Nitrite Negative (NEG) Urine Bilirubin Negative (NEG) Urine Urobilinogen Dipstick 0.2 mg/dL (0.2 mg/dL) Urine Leukocyte Esterase Negative (NEG) Urine RBC Occ /HPF (0-2) Urine WBC Occ /HPF (0-4) Urine Squamous Epithelial Cells Many /LPF Urine Bacteria 0 /HPF (0-FEW) Laboratory Tests Test 03/20/17 11:50 03/21/17 06:20 Urine Collection Type U cath Urine Color Yellow Urine Clarity Clear Urine pH 6.0 Urine Specific [place] <=1.005 Urine Protein Negative mg/dL (NEG-TRACE) Urine Glucose (UA) Negative mg/dL (NEG) Urine Ketones (Stick) Trace mg/dL (NEG) Urine Blood Negative (NEG) Urine Nitrite Negative (NEG) Urine Bilirubin Negative (NEG) Urine Urobilinogen Dipstick 0.2 mg/dL (0.2 mg/dL) Urine Leukocyte Esterase Negative (NEG) Urine RBC Occ /HPF (0-2) Urine WBC Occ /HPF (0-4) Urine Squamous Epithelial Cells Many /LPF Urine Bacteria 0 /HPF (0-FEW) Sodium Level 144 mmol/L (136-145) Potassium Level 3.7 mmol/L (3.5-5.1) Chloride Level 108 mmol/L (98-107) Carbon Dioxide Level 22 mmol/L (21-32) Anion Gap 14 (6-14) Blood Urea Nitrogen 19 mg/dL (7-20) Creatinine 5.0 mg/dL (0.6-1.0) Estimated GFR (Cockcroft-Gault) 10.3 Glucose Level 73 mg/dL (70-99) Calcium Level 8.2 mg/dL (8.5-10.1) Problem List s/p appy khurram, as per renal Problems: JORGE DEVI APRN Mar 21, 2017 11:44
--- NOTE | 2017-03-21 12:01 | PDOC ---
Renal-Progress Notes Subjective Notes Notes DIARRHEA History of Present Illness Hx of present illness STABLE Vitals Vitals Vital Signs Date Time Temp Pulse Resp B/P (MAP) Pulse Ox O2 Delivery O2 Flow Rate FiO2 03/21/17 09:30 Room Air 03/21/17 07:00 98.5 85 18 141/86 (104) 96 98.5 03/20/17 15:39 2.0 Weight Weight [ ] Labs Labs Laboratory Tests Test 03/21/17 06:20 Sodium Level 144 mmol/L (136-145) Potassium Level 3.7 mmol/L (3.5-5.1) Chloride Level 108 mmol/L (98-107) Carbon Dioxide Level 22 mmol/L (21-32) Anion Gap 14 (6-14) Blood Urea Nitrogen 19 mg/dL (7-20) Creatinine 5.0 mg/dL (0.6-1.0) Estimated GFR (Cockcroft-Gault) 10.3 Glucose Level 73 mg/dL (70-99) Calcium Level 8.2 mg/dL (8.5-10.1) Micro Micro Microbiology 03/17/17 Blood Culture - Preliminary, Resulted NO GROWTH AFTER 4 DAYS Review of Systems Constitutional: yes: malaise, weakness, alert, oriented Ears/Nose/Throat: Yes: no symptom reported Eyes: Yes: no symptom reported Pulmonary: Yes no symptom reported Cardiovascular: Yes no symptom reported Gastrointestional: Yes: diarrhea Genitourinary: Yes: no symptom reported Musculoskeletal: Yes: muscle stiffness Skin: Yes no symptom reported Psychiatric/Neurological: Yes: no symptom reported Endocrine: Yes: no symptom reported Physical Exam General Appearance: no apparent distress Respiratory: bilateral CTA Heart: S1S2 Abdomen: soft, bowel sounds present Genitourinary: bladder flat Neurology: alert, oriented, follow commands Assessment Assessment IMP EMILY DUE TO CONTRAST-NON OLIGURIC BUT CR UP TO 5.0 S/P LAP APPY DIARRHEA PLAN CONT WITH IVF'S LABS IN AM NO DIALYSIS FOR NOW MARLO MOTTA MD Mar 21, 2017 12:01
[2017-03-21] MEDS: PIPERACILLIN/TAZOBACTAM 2.25 GM in IV NORMAL SALINE 50ML 50 ML IV SCH ×2 (13:08→18:44)
[2017-03-21 15:00] VITALS: BP 139/79
[2017-03-21] MEDS: SIMETHICONE 80 MG TAB.CHEW PO PRN (18:51)
[2017-03-21 19:55] VITALS: BP 120/83
[2017-03-21] MEDS ORDERED: PIPERACILLIN/TAZOBACTAM 3.375 GM in IV NORMAL SALINE 50ML 50 ML IV SCH (21:00)
[2017-03-21] MEDS: ACETAMINOPHEN 325 MG TABLET. PO PRN (21:47)
[2017-03-21 23:56] VITALS: BP 130/84
[2017-03-22] MEDS: PIPERACILLIN/TAZOBACTAM 2.25 GM in IV NORMAL SALINE 50ML 50 ML IV SCH ×4 (00:23→17:36)
[2017-03-22 03:59] VITALS: BP 127/84
[2017-03-22] MEDS: ONDANSETRON PF 4 MG/2 ML VIAL. IV PRN ×3 (06:34→22:46)
[2017-03-22 06:53] LABS: BASO # 0.1 x10^3/uL (0.0-0.2); BASO % 1 % (0-3); EOS % 6 % (0-3); HEMATOCRIT 31.7 % (36.0-47.0); HEMOGLOBIN 10.6 g/dL (12.0-15.5); LYMPH # 1.8 x10^3/uL (1.0-4.8); LYMPH % 20 % (24-48); MEAN CORPUSCULAR HEMOGLOBIN 30 pg (25-35); MEAN CORPUSCULAR HGB CONC 34 g/dL (31-37); MEAN CORPUSCULAR VOLUME 89 fL (79-100); MONO % 10 % (0-9); NEUT % 62 % (31-73); PLATELET COUNT 220 x10^3/uL (140-400); RED BLOOD COUNT 3.57 x10^6/uL (3.50-5.40); RED CELL DISTRIBUTION WIDTH 15.9 % (11.5-14.5); WHITE BLOOD COUNT 8.9 x10^3/uL (4.0-11.0)
[2017-03-22 07:00] VITALS: BP 136/89
[2017-03-22 07:08] LABS: ALBUMIN 1.6 g/dL (3.4-5.0); ALBUMIN/GLOBULIN RATIO 0.4 (1.0-1.7); CALCIUM 8.5 mg/dL (8.5-10.1); CREATININE 6.1 mg/dL (0.6-1.0); GFR 8.2; POTASSIUM 3.5 mmol/L (3.5-5.1); TOTAL BILIRUBIN 0.4 mg/dL (0.2-1.0); TOTAL PROTEIN 5.6 g/dL (6.4-8.2)
[2017-03-22] MEDS: SIMETHICONE 80 MG TAB.CHEW PO PRN (08:55)
[2017-03-22] MEDS: PANTOPRAZOLE 40 MG TABLET.DR. PO SCH ×2 (08:56→17:34)
[2017-03-22] MEDS: ENOXAPARIN 40 MG/0.4 ML SYRINGE. SQ SCH (09:00)
[2017-03-22] MEDS: DOCUSATE SODIUM 100 MG CAPSULE. PO SCH ×2 (09:00→21:00)
[2017-03-22] MEDS ORDERED: FLUCONAZOLE 400 MG/200 ML IV SCH (09:00)
[2017-03-22] MEDS ORDERED: FLUCONAZOLE 200MG/100ML PREMIX 100 ML IV SCH (09:00)
[2017-03-22] MEDS: MULTIVITAMIN with MINERAL TABLET. PO SCH (09:00)
[2017-03-22] MEDS: PROCHLORPERAZINE 10 MG/2 ML VIAL. IV PRN ×2 (09:29→18:39)
[2017-03-22] MEDS: MORPHINE SULFATE 4 MG/ML DISP.SYRIN. IV PRN (09:36)
[2017-03-22] MEDS: IV RINGERS,LACTATED 1000ML 1,000 ML IV SCH ×2 (10:00→18:58)
--- NOTE | 2017-03-22 10:44 | PDOC ---
Infectious Disease Note Subjective Subjective c/o nausea and poor oral intake cont pain ROS ROS GEN: Denies fevers, chills, sweats HEENT: Denies blurred vision, sore throat CV: Denies chest pain RESP: Denies shortness of air, cough GI: Denies n/v/d NEURO: Denies confusion, dizziness MSK: Denies weakness, joint pain/swelling Vital Sign Vital Signs Vital Signs Date Time Temp Pulse Resp B/P (MAP) Pulse Ox O2 Delivery O2 Flow Rate FiO2 03/22/17 09:36 20 Room Air 03/22/17 07:00 97.5 78 136/89 (105) 97 97.5 Physical Exam PHYSICAL EXAM GENERAL: NAD, Alert HEENT: PERRL, OC/OP NECK: Supple, no JVD, no LN LUNGS: Clear HEART: S1S2, no gallop, no murmur ABD: Soft, NT, no organomegaly, no rebound EXT: No edema, no cyanosis RESOURCE TEACHER: Alert, oriented x 3, no focal neurologic deficit SKIN: No rash IV: ok Labs Lab Laboratory Tests Test 03/22/17 06:15 White Blood Count 8.9 x10^3/uL (4.0-11.0) Red Blood Count 3.57 x10^6/uL (3.50-5.40) Hemoglobin 10.6 g/dL (12.0-15.5) Hematocrit 31.7 % (36.0-47.0) Mean Corpuscular Volume 89 fL (79-100) Mean Corpuscular Hemoglobin 30 pg (25-35) Mean Corpuscular Hemoglobin Concent 34 g/dL (31-37) Red Cell Distribution Width 15.9 % (11.5-14.5) Platelet Count 220 x10^3/uL (140-400) Neutrophils (%) (Auto) 62 % (31-73) Lymphocytes (%) (Auto) 20 % (24-48) Monocytes (%) (Auto) 10 % (0-9) Eosinophils (%) (Auto) 6 % (0-3) Basophils (%) (Auto) 1 % (0-3) Neutrophils # (Auto) 5.5 x10^3uL (1.8-7.7) Lymphocytes # (Auto) 1.8 x10^3/uL (1.0-4.8) Monocytes # (Auto) 0.9 x10^3/uL (0.0-1.1) Eosinophils # (Auto) 0.5 x10^3/uL (0.0-0.7) Basophils # (Auto) 0.1 x10^3/uL (0.0-0.2) Sodium Level 146 mmol/L (136-145) Potassium Level 3.5 mmol/L (3.5-5.1) Chloride Level 109 mmol/L (98-107) Carbon Dioxide Level 25 mmol/L (21-32) Anion Gap 12 (6-14) Blood Urea Nitrogen 22 mg/dL (7-20) Creatinine 6.1 mg/dL (0.6-1.0) Estimated GFR (Cockcroft-Gault) 8.2 BUN/Creatinine Ratio 4 (6-20) Glucose Level 79 mg/dL (70-99) Calcium Level 8.5 mg/dL (8.5-10.1) Total Bilirubin 0.4 mg/dL (0.2-1.0) Aspartate Amino Transf (AST/SGOT) 16 U/L (15-37) Alanine Aminotransferase (ALT/SGPT) 15 U/L (14-59) Alkaline Phosphatase 56 U/L (46-116) Total Protein 5.6 g/dL (6.4-8.2) Albumin 1.6 g/dL (3.4-5.0) Albumin/Globulin Ratio 0.4 (1.0-1.7) Objective Assessment Appendicitis s/p appendectomy 03/15 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 s/p Dexamethasone 03/15 vs reactive EMILY Plan Plan of Care Continue Zosyn and Fluconazole Monitor temp, WBC and renal function f/u cultures MELISSA VILLANUEVA MD Mar 22, 2017 10:44
--- NOTE | 2017-03-22 11:37 | PDOC ---
Renal-Progress Notes Subjective Notes Notes NOT EATING, NAUSEATED AND SPITTING UP History of Present Illness Hx of present illness STABLE Vitals Vitals Vital Signs Date Time Temp Pulse Resp B/P (MAP) Pulse Ox O2 Delivery O2 Flow Rate FiO2 03/22/17 09:36 20 Room Air 03/22/17 07:00 97.5 78 136/89 (105) 97 97.5 Weight Weight [ ] Labs Labs Laboratory Tests Test 03/22/17 06:15 White Blood Count 8.9 x10^3/uL (4.0-11.0) Red Blood Count 3.57 x10^6/uL (3.50-5.40) Hemoglobin 10.6 g/dL (12.0-15.5) Hematocrit 31.7 % (36.0-47.0) Mean Corpuscular Volume 89 fL (79-100) Mean Corpuscular Hemoglobin 30 pg (25-35) Mean Corpuscular Hemoglobin Concent 34 g/dL (31-37) Red Cell Distribution Width 15.9 % (11.5-14.5) Platelet Count 220 x10^3/uL (140-400) Neutrophils (%) (Auto) 62 % (31-73) Lymphocytes (%) (Auto) 20 % (24-48) Monocytes (%) (Auto) 10 % (0-9) Eosinophils (%) (Auto) 6 % (0-3) Basophils (%) (Auto) 1 % (0-3) Neutrophils # (Auto) 5.5 x10^3uL (1.8-7.7) Lymphocytes # (Auto) 1.8 x10^3/uL (1.0-4.8) Monocytes # (Auto) 0.9 x10^3/uL (0.0-1.1) Eosinophils # (Auto) 0.5 x10^3/uL (0.0-0.7) Basophils # (Auto) 0.1 x10^3/uL (0.0-0.2) Sodium Level 146 mmol/L (136-145) Potassium Level 3.5 mmol/L (3.5-5.1) Chloride Level 109 mmol/L (98-107) Carbon Dioxide Level 25 mmol/L (21-32) Anion Gap 12 (6-14) Blood Urea Nitrogen 22 mg/dL (7-20) Creatinine 6.1 mg/dL (0.6-1.0) Estimated GFR (Cockcroft-Gault) 8.2 BUN/Creatinine Ratio 4 (6-20) Glucose Level 79 mg/dL (70-99) Calcium Level 8.5 mg/dL (8.5-10.1) Total Bilirubin 0.4 mg/dL (0.2-1.0) Aspartate Amino Transf (AST/SGOT) 16 U/L (15-37) Alanine Aminotransferase (ALT/SGPT) 15 U/L (14-59) Alkaline Phosphatase 56 U/L (46-116) Total Protein 5.6 g/dL (6.4-8.2) Albumin 1.6 g/dL (3.4-5.0) Albumin/Globulin Ratio 0.4 (1.0-1.7) Micro Micro Microbiology 03/17/17 Blood Culture - Final, Complete NO GROWTH AFTER 5 DAYS Review of Systems Constitutional: yes: malaise, weakness, alert, oriented Ears/Nose/Throat: Yes: no symptom reported Eyes: Yes: no symptom reported Pulmonary: Yes no symptom reported Cardiovascular: Yes no symptom reported Gastrointestional: Yes: diarrhea Genitourinary: Yes: no symptom reported Musculoskeletal: Yes: muscle stiffness Skin: Yes no symptom reported Psychiatric/Neurological: Yes: no symptom reported Endocrine: Yes: no symptom reported Physical Exam General Appearance: no apparent distress Respiratory: bilateral CTA Heart: S1S2 Abdomen: soft, bowel sounds present Genitourinary: bladder flat Neurology: alert, oriented, follow commands Assessment Assessment IMP EMILY DUE TO CONTRAST-NON OLIGURIC BUT CR UP TO 6.1 S/P LAP APPY DIARRHEA PLAN CONT WITH IVF'S START PPN LABS IN AM NO DIALYSIS FOR NOW MARLO MOTTA MD Mar 22, 2017 11:37
[2017-03-22 11:59] VITALS: BP 148/99
[2017-03-22] MEDS: AMINO AC 3%/ELECTROLYTE/GLYCER 1,000 ML IV SCH (12:19)
--- NOTE | 2017-03-22 12:44 | PDOC ---
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 new face rash, likely contact with the rug, ok to ob for now dvt, gi ppx Vitals Vitals Vital Signs Date Time Temp Pulse Resp B/P (MAP) Pulse Ox O2 Delivery O2 Flow Rate FiO2 03/22/17 11:59 97.9 74 22 148/99 (115) 96 Room Air 97.9 03/22/17 10:20 2.0 Physical Exam General: Alert, Oriented X3, Cooperative, No acute distress Heart: Regular rate Lungs: Clear Abdomen: Soft, Other Extremities: No clubbing, No cyanosis, No edema Skin: No breakdown, No significant lesion Labs LABS Laboratory Tests Test 03/22/17 06:15 White Blood Count 8.9 x10^3/uL (4.0-11.0) Red Blood Count 3.57 x10^6/uL (3.50-5.40) Hemoglobin 10.6 g/dL (12.0-15.5) Hematocrit 31.7 % (36.0-47.0) Mean Corpuscular Volume 89 fL (79-100) Mean Corpuscular Hemoglobin 30 pg (25-35) Mean Corpuscular Hemoglobin Concent 34 g/dL (31-37) Red Cell Distribution Width 15.9 % (11.5-14.5) Platelet Count 220 x10^3/uL (140-400) Neutrophils (%) (Auto) 62 % (31-73) Lymphocytes (%) (Auto) 20 % (24-48) Monocytes (%) (Auto) 10 % (0-9) Eosinophils (%) (Auto) 6 % (0-3) Basophils (%) (Auto) 1 % (0-3) Neutrophils # (Auto) 5.5 x10^3uL (1.8-7.7) Lymphocytes # (Auto) 1.8 x10^3/uL (1.0-4.8) Monocytes # (Auto) 0.9 x10^3/uL (0.0-1.1) Eosinophils # (Auto) 0.5 x10^3/uL (0.0-0.7) Basophils # (Auto) 0.1 x10^3/uL (0.0-0.2) Sodium Level 146 mmol/L (136-145) Potassium Level 3.5 mmol/L (3.5-5.1) Chloride Level 109 mmol/L (98-107) Carbon Dioxide Level 25 mmol/L (21-32) Anion Gap 12 (6-14) Blood Urea Nitrogen 22 mg/dL (7-20) Creatinine 6.1 mg/dL (0.6-1.0) Estimated GFR (Cockcroft-Gault) 8.2 BUN/Creatinine Ratio 4 (6-20) Glucose Level 79 mg/dL (70-99) Calcium Level 8.5 mg/dL (8.5-10.1) Total Bilirubin 0.4 mg/dL (0.2-1.0) Aspartate Amino Transf (AST/SGOT) 16 U/L (15-37) Alanine Aminotransferase (ALT/SGPT) 15 U/L (14-59) Alkaline Phosphatase 56 U/L (46-116) Total Protein 5.6 g/dL (6.4-8.2) Albumin 1.6 g/dL (3.4-5.0) Albumin/Globulin Ratio 0.4 (1.0-1.7) Review of Systems Review of Systems headache nausea, poor po intake will start PPN Comment Review of Relevant I have reviewed the following items na (where applicable) has been applied. Labs Laboratory Tests Test 03/21/17 06:20 03/21/17 07:30 03/22/17 06:15 Sodium Level 144 mmol/L (136-145) 146 mmol/L (136-145) Potassium Level 3.7 mmol/L (3.5-5.1) 3.5 mmol/L (3.5-5.1) Chloride Level 108 mmol/L (98-107) 109 mmol/L (98-107) Carbon Dioxide Level 22 mmol/L (21-32) 25 mmol/L (21-32) Anion Gap 14 (6-14) 12 (6-14) Blood Urea Nitrogen 19 mg/dL (7-20) 22 mg/dL (7-20) Creatinine 5.0 mg/dL (0.6-1.0) 6.1 mg/dL (0.6-1.0) Estimated GFR (Cockcroft-Gault) 10.3 8.2 Glucose Level 73 mg/dL (70-99) 79 mg/dL (70-99) Calcium Level 8.2 mg/dL (8.5-10.1) 8.5 mg/dL (8.5-10.1) Clostridium difficile Toxin (PCR) Negative (Negative) White Blood Count 8.9 x10^3/uL (4.0-11.0) Red Blood Count 3.57 x10^6/uL (3.50-5.40) Hemoglobin 10.6 g/dL (12.0-15.5) Hematocrit 31.7 % (36.0-47.0) Mean Corpuscular Volume 89 fL (79-100) Mean Corpuscular Hemoglobin 30 pg (25-35) Mean Corpuscular Hemoglobin Concent 34 g/dL (31-37) Red Cell Distribution Width 15.9 % (11.5-14.5) Platelet Count 220 x10^3/uL (140-400) Neutrophils (%) (Auto) 62 % (31-73) Lymphocytes (%) (Auto) 20 % (24-48) Monocytes (%) (Auto) 10 % (0-9) Eosinophils (%) (Auto) 6 % (0-3) Basophils (%) (Auto) 1 % (0-3) Neutrophils # (Auto) 5.5 x10^3uL (1.8-7.7) Lymphocytes # (Auto) 1.8 x10^3/uL (1.0-4.8) Monocytes # (Auto) 0.9 x10^3/uL (0.0-1.1) Eosinophils # (Auto) 0.5 x10^3/uL (0.0-0.7) Basophils # (Auto) 0.1 x10^3/uL (0.0-0.2) BUN/Creatinine Ratio 4 (6-20) Total Bilirubin 0.4 mg/dL (0.2-1.0) Aspartate Amino Transf (AST/SGOT) 16 U/L (15-37) Alanine Aminotransferase (ALT/SGPT) 15 U/L (14-59) Alkaline Phosphatase 56 U/L (46-116) Total Protein 5.6 g/dL (6.4-8.2) Albumin 1.6 g/dL (3.4-5.0) Albumin/Globulin Ratio 0.4 (1.0-1.7) Laboratory Tests Test 03/22/17 06:15 White Blood Count 8.9 x10^3/uL (4.0-11.0) Red Blood Count 3.57 x10^6/uL (3.50-5.40) Hemoglobin 10.6 g/dL (12.0-15.5) Hematocrit 31.7 % (36.0-47.0) Mean Corpuscular Volume 89 fL (79-100) Mean Corpuscular Hemoglobin 30 pg (25-35) Mean Corpuscular Hemoglobin Concent 34 g/dL (31-37) Red Cell Distribution Width 15.9 % (11.5-14.5) Platelet Count 220 x10^3/uL (140-400) Neutrophils (%) (Auto) 62 % (31-73) Lymphocytes (%) (Auto) 20 % (24-48) Monocytes (%) (Auto) 10 % (0-9) Eosinophils (%) (Auto) 6 % (0-3) Basophils (%) (Auto) 1 % (0-3) Neutrophils # (Auto) 5.5 x10^3uL (1.8-7.7) Lymphocytes # (Auto) 1.8 x10^3/uL (1.0-4.8) Monocytes # (Auto) 0.9 x10^3/uL (0.0-1.1) Eosinophils # (Auto) 0.5 x10^3/uL (0.0-0.7) Basophils # (Auto) 0.1 x10^3/uL (0.0-0.2) Sodium Level 146 mmol/L (136-145) Potassium Level 3.5 mmol/L (3.5-5.1) Chloride Level 109 mmol/L (98-107) Carbon Dioxide Level 25 mmol/L (21-32) Anion Gap 12 (6-14) Blood Urea Nitrogen 22 mg/dL (7-20) Creatinine 6.1 mg/dL (0.6-1.0) Estimated GFR (Cockcroft-Gault) 8.2 BUN/Creatinine Ratio 4 (6-20) Glucose Level 79 mg/dL (70-99) Calcium Level 8.5 mg/dL (8.5-10.1) Total Bilirubin 0.4 mg/dL (0.2-1.0) Aspartate Amino Transf (AST/SGOT) 16 U/L (15-37) Alanine Aminotransferase (ALT/SGPT) 15 U/L (14-59) Alkaline Phosphatase 56 U/L (46-116) Total Protein 5.6 g/dL (6.4-8.2) Albumin 1.6 g/dL (3.4-5.0) Albumin/Globulin Ratio 0.4 (1.0-1.7) Microbiology 03/17/17 Blood Culture - Final, Complete NO GROWTH AFTER 5 DAYS Medications Current Medications Dexamethasone Sodium Phosphate (Decadron) 20 mg STK-MED ONCE .ROUTE ; Start 03/15/17 at 14:06; Stop 03/15/17 at 14:07; Status DC Ondansetron HCl (Zofran) 4 mg STK-MED ONCE .ROUTE ; Start 03/15/17 at 14:06; Stop 03/15/17 at 14:07; Status DC Propofol 20 ml @ As Directed STK-MED ONCE IV ; Start 03/15/17 at 14:06; Stop at 14:07; Status DC Lidocaine HCl (Lidocaine Pf 2% Vial) 5 ml STK-MED ONCE .ROUTE ; Start 03/15/17 at 14:06; Stop 03/15/17 at 14:07; Status DC Midazolam HCl (Versed) 2 mg STK-MED ONCE .ROUTE ; Start 03/15/17 at 14:06; Stop 03/15/17 at 14:07; Status DC Fentanyl Citrate (Fentanyl 2ml Vial) 100 mcg STK-MED ONCE .ROUTE ; Start at 14:06; Stop 03/15/17 at 14:07; Status DC Rocuronium Evans (Zemuron) 100 mg STK-MED ONCE .ROUTE ; Start 03/15/17 at 14: 07; Stop 03/15/17 at 14:08; Status DC Succinylcholine Chloride (Anectine) 200 mg STK-MED ONCE .ROUTE ; Start 03/15/17 at 14:07; Stop 03/15/17 at 14:08; Status DC Bupivacaine HCl/ Epinephrine Bitart (Marcaine-Epi 0.5%-[id number]) 50 ml STK-MED ONCE .ROUTE Last administered on 03/15/17 14:54; Start 03/15/17 at 13:07; Stop 03/15/17 at 14:08; Status DC Cefoxitin Sodium 2 gm/Sodium Chloride 100 ml @ 200 mls/hr 1X PREOP IV Last administered on 03/15/17 14:55; Start 03/15/17 at 16:00; Stop 03/16/17 at 14:41 ; Status DC Sodium Chloride 1,000 ml @ 125 mls/hr 1X ONCE IV Last administered on 14:15; Start 03/15/17 at 14:15; Stop 03/15/17 at 22:14; Status DC Cefoxitin Sodium 100 ml @ As Directed STK-MED ONCE IV ; Start 03/15/17 at 14:53 ; Stop 03/15/17 at 14:54; Status DC Enoxaparin Sodium (Lovenox 40mg Syringe) 40 mg Q24H SQ ; Start 03/15/17 at 15:30 ; Stop 03/16/17 at 14:38; Status DC Sodium Chloride (Normal Saline Flush) 3 ml QSHIFT PRN IV AFTER MEDS AND BLOOD DRAWS; Start 03/15/17 at 15:30 Ringer's Solution 1,000 ml @ 125 mls/hr Q8H IV Last administered on 21:40; Start 03/15/17 at 15:19 Acetaminophen/ Hydrocodone Bitart (Lortab 5/325) 1 tab PRN Q4HRS PRN PO MILD PAIN Last administered on 03/16/17 02:56; Start 03/15/17 at 15:30; Stop at 13:05; Status DC Ketorolac Tromethamine (Toradol) 15 mg PRN Q6HRS PRN IV PAIN; Start 03/15/17 at 15:30; Stop 03/16/17 at 09:05; Status DC Morphine Sulfate 2 mg PRN Q1HR PRN IV PAIN Last administered on 03/22/17 09: 36; Start 03/15/17 at 15:30 Docusate Sodium (Colace) 100 mg BID PO Last administered on 03/17/17 13:04; Start 03/15/17 at 21:00 Ondansetron HCl (Zofran) 4 mg PRN Q6HRS PRN IV NAUESA, 1ST CHOICE Last administered on 03/22/17 06:34; Start 03/15/17 at 15:30; Stop 03/22/17 at 09: 09; Status DC Piperacillin Sod/ Tazobactam Sod 3.375 gm/Sodium Chloride 50 ml @ 100 mls/hr Q6HRS IV Last administered on 03/21/17 06:20; Start 03/15/17 at 18:00; Stop 03/21/17 at 09:24; Status DC Morphine Sulfate 10 mg STK-MED ONCE .ROUTE ; Start 03/15/17 at 15:32; Stop 03/15 at 15:33; Status DC Ringer's Solution 1,000 ml @ 125 mls/hr Q8H IV Last administered on 03/16/17 00:51; Start 03/15/17 at 15:42; Stop 03/16/17 at 03:41; Status DC Lidocaine HCl (Xylocaine-Mpf 1% Vial) 0.5 ml 1X PRN PRN INJ IV START; Start at 15:45; Stop 03/16/17 at 15:44; Status DC Ringer's Solution 1,000 ml @ 125 mls/hr Q8H IV ; Start 03/15/17 at 15:42; Stop 03/15/17 at 21:41; Status DC Fentanyl Citrate (Fentanyl 2ml Vial) 25 mcg PRN Q5MIN PRN IV Acute Pain; Start 03/15/17 at 15:45; Stop 03/16/17 at 09:05; Status DC Fentanyl Citrate (Fentanyl 2ml Vial) 50 mcg PRN Q5MIN PRN IV Acute Pain Last administered on 03/15/17 15:58; Start 03/15/17 at 15:45; Stop 03/16/17 at 09:05 ; Status DC Morphine Sulfate 2 mg PRN Q10MIN PRN IV Mild Pain; Start 03/15/17 at 15:45; Stop 03/16/17 at 09:05; Status DC Morphine Sulfate 4 mg PRN Q10MIN PRN IV Moderate Pain; Start 03/15/17 at 15:45 ; Stop 03/16/17 at 09:05; Status DC Ondansetron HCl (Zofran) 4 mg PRN Q6HRS PRN IV Nausea, 1st Choice; Start at 15:45; Stop 03/16/17 at 09:05; Status DC Metoclopramide HCl (Reglan) 10 mg PRN Q6HRS PRN IV Nausea/Vomiting, 2nd Choice Last administered on 03/15/17 18:49; Start 03/15/17 at 15:45; Stop 03/16/17 at 15:44; Status DC Diphenhydramine HCl (Benadryl) 12.5 mg PRN Q2HR PRN IV ITCHING; Start 03/15/17 at 15:45; Stop 03/16/17 at 15:44; Status DC Albuterol Sulfate (Ventolin Neb Soln) 2.5 mg PRN 1X PRN NEB Shortness of Breath , Wheezing; Start 03/15/17 at 15:45; Stop 03/16/17 at 15:44; Status DC Dexamethasone Sodium Phosphate (Decadron) 8 mg 1X PRN PRN IV 3RD CHOICE FOR NAUSEA; Start 03/15/17 at 15:45; Stop 03/16/17 at 15:44; Status DC Meperidine HCl (Demerol) 10 mg 1X PERIOP PRN IV SHIVERING; Start 03/15/17 at 15 :45; Stop 03/16/17 at 15:44; Status DC Meperidine HCl (Demerol) 15 mg 1X PERIOP PRN IV SHIVERING; Start 03/15/17 at 15 :45; Stop 03/16/17 at 15:44; Status DC Prochlorperazine Edisylate (Compazine) 10 mg STK-MED ONCE .ROUTE ; Start at 15:48; Stop 03/15/17 at 15:49; Status DC Prochlorperazine Maleate (Compazine) 5 mg 1X PACU PRN PO NAUSEA/VOMITING; Start 03/15/17 at 16:00; Stop 03/19/17 at 19:03; Status DC Hydromorphone HCl (Dilaudid) 0.5 mg PRN Q10MIN PRN IV PAIN Last administered on 03/15/17 16:52; Start 03/15/17 at 16:15; Stop 03/16/17 at 09:05; Status DC Acetaminophen/ Hydrocodone Bitart (Lortab 5/325) 2 tab PRN Q4HRS PRN PO PAIN Last administered on 03/16/17 10:16; Start 03/16/17 at 09:15; Stop 03/16/17 at 13:05; Status DC Multivitamins (Thera M Plus) 1 tab DAILY PO Last administered on 03/20/17 08: 48; Start 03/16/17 at 13:00 Pantoprazole Sodium (Protonix) 40 mg DAILYAC PO Last administered on 03/20/17 08:48; Start 03/16/17 at 13:00; Stop 03/20/17 at 11:14; Status DC Oxycodone/ Acetaminophen (Percocet 7.5/ 325) 1 tab PRN Q4HRS PRN PO PAIN Last administered on 03/21/17 08:12; Start 03/16/17 at 13:15 Morphine Sulfate 4 mg PRN Q2HR PRN IV PAIN Last administered on 03/18/17 14:11 ; Start 03/16/17 at 13:15 Enoxaparin Sodium (Lovenox 40mg Syringe) 40 mg Q12HR SQ Last administered on 08:47; Start 03/16/17 at 21:00; Stop 03/20/17 at 16:57; Status DC Iohexol (Omnipaque 300 Mg/ml) 75 ml 1X ONCE IV Last administered on 03/17/17 08:00; Start 03/17/17 at 08:00; Stop 03/17/17 at 08:01; Status DC Iohexol (Omnipaque 240 Mg/ml) 50 ml 1X ONCE PO Last administered on 03/17/17 08:00; Start 03/17/17 at 08:00; Stop 03/17/17 at 08:01; Status DC Info (Do NOT chart on this entry -- for MONITORING) 1 each PRN DAILY PRN MC SEE COMMENTS; Start 03/17/17 at 07:45; Stop 03/19/17 at 07:44; Status DC Sodium Chloride 1,000 ml @ 1,000 mls/hr 1X ONCE IV Last administered on 08:00; Start 03/17/17 at 08:00; Stop 03/17/17 at 08:59; Status DC Vancomycin HCl (Vanco Per Pharmacy) 1 each PRN DAILY PRN MC SEE COMMENTS Last administered on 03/18/17 14:24; Start 03/17/17 at 08:00; Stop 03/19/17 at 11:10 ; Status DC Fluconazole/ Sodium Chloride 200 ml @ 100 mls/hr Q24H IV Last administered on 03/21/17 08:07; Start 03/17/17 at 09:00; Stop 03/21/17 at 09:24; Status DC Vancomycin HCl 2 gm/Sodium Chloride 500 ml @ 250 mls/hr 1X ONCE IV Last administered on 03/17/17 13:08; Start 03/17/17 at 09:00; Stop 03/17/17 at 10:59 ; Status DC Acetaminophen (Tylenol) 650 mg PRN Q6HRS PRN PO FEVER Last administered on 21:47; Start 03/17/17 at 08:15 Vancomycin HCl 2 gm/Sodium Chloride 500 ml @ 250 mls/hr Q8H IV Last administered on 03/19/17 05:41; Start 03/17/17 at 22:00; Stop 03/19/17 at 11:10 ; Status DC Vancomycin HCl 1 each 1X ONCE MC ; Start 03/18/17 at 13:30; Stop 03/18/17 at 13 :31; Status DC Calcium Carbonate/ Glycine (Tums) 1,000 mg PRN Q4HRS PRN PO INDIGESTION Last administered on 03/17/17 23:57; Start 03/17/17 at 23:45 Potassium Chloride (Klor-Con) 40 meq 1X ONCE PO Last administered on 14:14; Start 03/18/17 at 12:45; Stop 03/18/17 at 12:46; Status DC Vancomycin HCl 1 each 1X ONCE MC ; Start 03/19/17 at 13:30; Stop 03/19/17 at 13 :30; Status DC Sodium Chloride 1,000 ml @ 1,000 mls/hr 1X ONCE IV Last administered on 14:28; Start 03/19/17 at 12:15; Stop 03/19/17 at 13:14; Status DC Pantoprazole Sodium (Protonix) 40 mg BIDAC PO Last administered on 03/22/17 08:56; Start 03/20/17 at 16:30 Simethicone (Gas-X) 80 mg PRN AFTMEALHC PRN PO GAS / BLOATING Last administered on 03/22/17 08:55; Start 03/20/17 at 11:15 Al Hydroxide/Mg Hydroxide (Mylanta Plus Xs) 30 ml PRN Q2HR PRN PO HEARTBURN / GAS; Start 03/20/17 at 11:15 Enoxaparin Sodium (Lovenox 40mg Syringe) 40 mg DAILY SQ Last administered on 08:09; Start 03/21/17 at 09:00 Fluconazole/ Sodium Chloride 100 ml @ 100 mls/hr Q24H IV ; Start 03/22/17 at 09:00; Stop 03/22/17 at 09:00; Status DC Piperacillin Sod/ Tazobactam Sod 3.375 gm/Sodium Chloride 50 ml @ 100 mls/hr Q12HR IV ; Start 03/21/17 at 21:00; Stop 03/21/17 at 21:00; Status DC Fluconazole/ Sodium Chloride 100 ml @ 100 mls/hr Q24H IV Last administered on 03/22/17 09:30; Start 03/22/17 at 09:00 Piperacillin Sod/ Tazobactam Sod 2.25 gm/Sodium Chloride 50 ml @ 100 mls/hr Q6HRS IV Last administered on 03/22/17 12:19; Start 03/21/17 at 12:00 Ondansetron HCl (Zofran) 8 mg PRN Q8HRS PRN IV NAUESA, 1ST CHOICE Last administered on 03/22/17 12:25; Start 03/22/17 at 09:15 Prochlorperazine Edisylate (Compazine) 10 mg PRN Q8HRS PRN IV NAUSEA/VOMITING - 2nd choice Last administered on 03/22/17 09:29; Start 03/22/17 at 09:15 Amino Acids/ Glycerin/ Electrolytes 1,000 ml @ 80 mls/hr [id number] IV Last administered on 03/22/17 12:19; Start 03/22/17 at 11:45 Active Scripts Active Reported Multivitamins (Multivitamin) 1 Each Tablet 1 Tab PO DAILY Omeprazole 20 Mg Capsule. 1 Cap PO DAILY Vitals/I & O Vital Sign - Last 24 Hours 03/21/17 03/21/17 03/21/17 03/21/17 15:00 19:50 19:55 23:56 Temp 98.7 98.1 98.8 98.7 98.1 98.8 Pulse 84 94 78 Resp 18 18 18 B/P (MAP) 139/79 (99) 120/83 (95) 130/84 (99) Pulse Ox 96 96 94 O2 Delivery Room Air Room Air Room Air Room Air 03/22/17 03/22/17 03/22/17 03/22/17 03:59 07:00 09:36 10:20 Temp 98.1 97.5 98.1 97.5 Pulse 66 78 Resp 18 20 20 B/P (MAP) 127/84 (98) 136/89 (105) Pulse Ox 97 97 96 O2 Delivery Room Air Room Air Room Air Room Air O2 Flow Rate 2.0 03/22/17 11:59 Temp 97.9 97.9 Pulse 74 Resp 22 B/P (MAP) 148/99 (115) Pulse Ox 96 O2 Delivery Room Air ADELITA FREEMAN MD Mar 22, 2017 12:44
--- NOTE | 2017-03-22 12:47 | PDOC ---
SURGICAL PROGRESS NOTE Subjective Pt with c/o N/V, diarrhea, some pain related to emesis Vital Signs Vital Signs Date Time Temp Pulse Resp B/P (MAP) Pulse Ox O2 Delivery O2 Flow Rate FiO2 03/22/17 11:59 97.9 74 22 148/99 (115) 96 Room Air 97.9 03/22/17 10:20 2.0 General: Alert, Oriented X3, Cooperative, mild distress Abdomen: Soft, Other (min TTP, incisions healing well) Labs Laboratory Tests Test 03/21/17 06:20 03/21/17 07:30 03/22/17 06:15 Sodium Level 144 mmol/L (136-145) 146 mmol/L (136-145) Potassium Level 3.7 mmol/L (3.5-5.1) 3.5 mmol/L (3.5-5.1) Chloride Level 108 mmol/L (98-107) 109 mmol/L (98-107) Carbon Dioxide Level 22 mmol/L (21-32) 25 mmol/L (21-32) Anion Gap 14 (6-14) 12 (6-14) Blood Urea Nitrogen 19 mg/dL (7-20) 22 mg/dL (7-20) Creatinine 5.0 mg/dL (0.6-1.0) 6.1 mg/dL (0.6-1.0) Estimated GFR (Cockcroft-Gault) 10.3 8.2 Glucose Level 73 mg/dL (70-99) 79 mg/dL (70-99) Calcium Level 8.2 mg/dL (8.5-10.1) 8.5 mg/dL (8.5-10.1) Clostridium difficile Toxin (PCR) Negative (Negative) White Blood Count 8.9 x10^3/uL (4.0-11.0) Red Blood Count 3.57 x10^6/uL (3.50-5.40) Hemoglobin 10.6 g/dL (12.0-15.5) Hematocrit 31.7 % (36.0-47.0) Mean Corpuscular Volume 89 fL (79-100) Mean Corpuscular Hemoglobin 30 pg (25-35) Mean Corpuscular Hemoglobin Concent 34 g/dL (31-37) Red Cell Distribution Width 15.9 % (11.5-14.5) Platelet Count 220 x10^3/uL (140-400) Neutrophils (%) (Auto) 62 % (31-73) Lymphocytes (%) (Auto) 20 % (24-48) Monocytes (%) (Auto) 10 % (0-9) Eosinophils (%) (Auto) 6 % (0-3) Basophils (%) (Auto) 1 % (0-3) Neutrophils # (Auto) 5.5 x10^3uL (1.8-7.7) Lymphocytes # (Auto) 1.8 x10^3/uL (1.0-4.8) Monocytes # (Auto) 0.9 x10^3/uL (0.0-1.1) Eosinophils # (Auto) 0.5 x10^3/uL (0.0-0.7) Basophils # (Auto) 0.1 x10^3/uL (0.0-0.2) BUN/Creatinine Ratio 4 (6-20) Total Bilirubin 0.4 mg/dL (0.2-1.0) Aspartate Amino Transf (AST/SGOT) 16 U/L (15-37) Alanine Aminotransferase (ALT/SGPT) 15 U/L (14-59) Alkaline Phosphatase 56 U/L (46-116) Total Protein 5.6 g/dL (6.4-8.2) Albumin 1.6 g/dL (3.4-5.0) Albumin/Globulin Ratio 0.4 (1.0-1.7) Laboratory Tests Test 03/22/17 06:15 White Blood Count 8.9 x10^3/uL (4.0-11.0) Red Blood Count 3.57 x10^6/uL (3.50-5.40) Hemoglobin 10.6 g/dL (12.0-15.5) Hematocrit 31.7 % (36.0-47.0) Mean Corpuscular Volume 89 fL (79-100) Mean Corpuscular Hemoglobin 30 pg (25-35) Mean Corpuscular Hemoglobin Concent 34 g/dL (31-37) Red Cell Distribution Width 15.9 % (11.5-14.5) Platelet Count 220 x10^3/uL (140-400) Neutrophils (%) (Auto) 62 % (31-73) Lymphocytes (%) (Auto) 20 % (24-48) Monocytes (%) (Auto) 10 % (0-9) Eosinophils (%) (Auto) 6 % (0-3) Basophils (%) (Auto) 1 % (0-3) Neutrophils # (Auto) 5.5 x10^3uL (1.8-7.7) Lymphocytes # (Auto) 1.8 x10^3/uL (1.0-4.8) Monocytes # (Auto) 0.9 x10^3/uL (0.0-1.1) Eosinophils # (Auto) 0.5 x10^3/uL (0.0-0.7) Basophils # (Auto) 0.1 x10^3/uL (0.0-0.2) Sodium Level 146 mmol/L (136-145) Potassium Level 3.5 mmol/L (3.5-5.1) Chloride Level 109 mmol/L (98-107) Carbon Dioxide Level 25 mmol/L (21-32) Anion Gap 12 (6-14) Blood Urea Nitrogen 22 mg/dL (7-20) Creatinine 6.1 mg/dL (0.6-1.0) Estimated GFR (Cockcroft-Gault) 8.2 BUN/Creatinine Ratio 4 (6-20) Glucose Level 79 mg/dL (70-99) Calcium Level 8.5 mg/dL (8.5-10.1) Total Bilirubin 0.4 mg/dL (0.2-1.0) Aspartate Amino Transf (AST/SGOT) 16 U/L (15-37) Alanine Aminotransferase (ALT/SGPT) 15 U/L (14-59) Alkaline Phosphatase 56 U/L (46-116) Total Protein 5.6 g/dL (6.4-8.2) Albumin 1.6 g/dL (3.4-5.0) Albumin/Globulin Ratio 0.4 (1.0-1.7) Problem List s/p lap appendectomy d/w nephrology cont hydration ADAT Problems: POPPY TUBBS MD Mar 22, 2017 12:47
[2017-03-22 15:00] VITALS: BP 126/86
[2017-03-22] MEDS: HEPARIN PF for SUB-Q USE 5,000 UNIT/0.5 ML VIAL. SQ SCH ×2 (15:13→22:26)
[2017-03-22 19:00] VITALS: BP 122/83
[2017-03-22 23:00] VITALS: BP 137/86
[2017-03-23] MEDS: PIPERACILLIN/TAZOBACTAM 2.25 GM in IV NORMAL SALINE 50ML 50 ML IV SCH ×2 (00:04→05:58)
[2017-03-23 03:00] VITALS: BP 137/86
[2017-03-23] MEDS: AMINO AC 3%/ELECTROLYTE/GLYCER 1,000 ML IV SCH ×2 (03:39→14:50)
[2017-03-23] MEDS: IV RINGERS,LACTATED 1000ML 1,000 ML IV SCH ×3 (03:40→22:35)
[2017-03-23] MEDS: HEPARIN PF for SUB-Q USE 5,000 UNIT/0.5 ML VIAL. SQ SCH ×3 (06:02→22:15)
[2017-03-23] MEDS: PANTOPRAZOLE 40 MG TABLET.DR. PO SCH ×2 (06:03→14:53)
[2017-03-23] MEDS: ACETAMINOPHEN 325 MG TABLET. PO PRN ×2 (06:08→22:38)
[2017-03-23 06:46] LABS: CALCIUM 8.5 mg/dL (8.5-10.1); CREATININE 6.3 mg/dL (0.6-1.0); GFR 7.9; MAGNESIUM 1.8 mg/dL (1.8-2.4); PHOSPHORUS 4.7 mg/dL (2.6-4.7); POTASSIUM 3.5 mmol/L (3.5-5.1)
[2017-03-23 07:00] VITALS: BP 136/84
[2017-03-23] MEDS ORDERED: LOPERAMIDE 2 MG CAPSULE PO PRN (08:00)
[2017-03-23] MEDS: DOCUSATE SODIUM 100 MG CAPSULE. PO SCH ×2 (09:00→21:00)
--- NOTE | 2017-03-23 09:02 | PDOC ---
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/2017 hypokalemia EMILY, possible ATN with vanco weakness and debility, nausea, abd pain History of Present Illness History of Present Illness NAusea seems better Creat 6.3 NOn oliguric Getting puffy from IVF - educate dand counselled PLAN; cpm per renal daily renal panel US kidneys ok Got IV contrast - creat jumped on 03/20 educated her about future IV contrast dye Vitals Vitals Vital Signs Date Time Temp Pulse Resp B/P (MAP) Pulse Ox O2 Delivery O2 Flow Rate FiO2 03/23/17 07:00 98.2 76 18 136/84 (101) 96 Room Air 98.2 03/23/17 03:00 2.0 Physical Exam General: Alert, Oriented X3, Cooperative, mild distress Heart: Regular rate Lungs: Clear Abdomen: Soft, Other (min TTP, incisions healing well) Extremities: No clubbing, No cyanosis, No edema Skin: No breakdown, No significant lesion Labs LABS Laboratory Tests Test 03/23/17 06:05 Sodium Level 146 mmol/L (136-145) Potassium Level 3.5 mmol/L (3.5-5.1) Chloride Level 109 mmol/L (98-107) Carbon Dioxide Level 25 mmol/L (21-32) Anion Gap 12 (6-14) Blood Urea Nitrogen 25 mg/dL (7-20) Creatinine 6.3 mg/dL (0.6-1.0) Estimated GFR (Cockcroft-Gault) 7.9 Glucose Level 91 mg/dL (70-99) Calcium Level 8.5 mg/dL (8.5-10.1) Phosphorus Level 4.7 mg/dL (2.6-4.7) Magnesium Level 1.8 mg/dL (1.8-2.4) Review of Systems Review of Systems some nausea, all else is neg Comment Review of Relevant I have reviewed the following items na (where applicable) has been applied. Labs Laboratory Tests Test 03/22/17 06:15 03/23/17 06:05 White Blood Count 8.9 x10^3/uL (4.0-11.0) Red Blood Count 3.57 x10^6/uL (3.50-5.40) Hemoglobin 10.6 g/dL (12.0-15.5) Hematocrit 31.7 % (36.0-47.0) Mean Corpuscular Volume 89 fL (79-100) Mean Corpuscular Hemoglobin 30 pg (25-35) Mean Corpuscular Hemoglobin Concent 34 g/dL (31-37) Red Cell Distribution Width 15.9 % (11.5-14.5) Platelet Count 220 x10^3/uL (140-400) Neutrophils (%) (Auto) 62 % (31-73) Lymphocytes (%) (Auto) 20 % (24-48) Monocytes (%) (Auto) 10 % (0-9) Eosinophils (%) (Auto) 6 % (0-3) Basophils (%) (Auto) 1 % (0-3) Neutrophils # (Auto) 5.5 x10^3uL (1.8-7.7) Lymphocytes # (Auto) 1.8 x10^3/uL (1.0-4.8) Monocytes # (Auto) 0.9 x10^3/uL (0.0-1.1) Eosinophils # (Auto) 0.5 x10^3/uL (0.0-0.7) Basophils # (Auto) 0.1 x10^3/uL (0.0-0.2) Sodium Level 146 mmol/L (136-145) 146 mmol/L (136-145) Potassium Level 3.5 mmol/L (3.5-5.1) 3.5 mmol/L (3.5-5.1) Chloride Level 109 mmol/L (98-107) 109 mmol/L (98-107) Carbon Dioxide Level 25 mmol/L (21-32) 25 mmol/L (21-32) Anion Gap 12 (6-14) 12 (6-14) Blood Urea Nitrogen 22 mg/dL (7-20) 25 mg/dL (7-20) Creatinine 6.1 mg/dL (0.6-1.0) 6.3 mg/dL (0.6-1.0) Estimated GFR (Cockcroft-Gault) 8.2 7.9 BUN/Creatinine Ratio 4 (6-20) Glucose Level 79 mg/dL (70-99) 91 mg/dL (70-99) Calcium Level 8.5 mg/dL (8.5-10.1) 8.5 mg/dL (8.5-10.1) Total Bilirubin 0.4 mg/dL (0.2-1.0) Aspartate Amino Transf (AST/SGOT) 16 U/L (15-37) Alanine Aminotransferase (ALT/SGPT) 15 U/L (14-59) Alkaline Phosphatase 56 U/L (46-116) Total Protein 5.6 g/dL (6.4-8.2) Albumin 1.6 g/dL (3.4-5.0) Albumin/Globulin Ratio 0.4 (1.0-1.7) Phosphorus Level 4.7 mg/dL (2.6-4.7) Magnesium Level 1.8 mg/dL (1.8-2.4) Laboratory Tests Test 03/23/17 06:05 Sodium Level 146 mmol/L (136-145) Potassium Level 3.5 mmol/L (3.5-5.1) Chloride Level 109 mmol/L (98-107) Carbon Dioxide Level 25 mmol/L (21-32) Anion Gap 12 (6-14) Blood Urea Nitrogen 25 mg/dL (7-20) Creatinine 6.3 mg/dL (0.6-1.0) Estimated GFR (Cockcroft-Gault) 7.9 Glucose Level 91 mg/dL (70-99) Calcium Level 8.5 mg/dL (8.5-10.1) Phosphorus Level 4.7 mg/dL (2.6-4.7) Magnesium Level 1.8 mg/dL (1.8-2.4) Microbiology 03/17/17 Blood Culture - Final, Complete NO GROWTH AFTER 5 DAYS Medications Current Medications Dexamethasone Sodium Phosphate (Decadron) 20 mg STK-MED ONCE .ROUTE ; Start 03/15/17 at 14:06; Stop 03/15/17 at 14:07; Status DC Ondansetron HCl (Zofran) 4 mg STK-MED ONCE .ROUTE ; Start 03/15/17 at 14:06; Stop 03/15/17 at 14:07; Status DC Propofol 20 ml @ As Directed STK-MED ONCE IV ; Start 03/15/17 at 14:06; Stop at 14:07; Status DC Lidocaine HCl (Lidocaine Pf 2% Vial) 5 ml STK-MED ONCE .ROUTE ; Start 03/15/17 at 14:06; Stop 03/15/17 at 14:07; Status DC Midazolam HCl (Versed) 2 mg STK-MED ONCE .ROUTE ; Start 03/15/17 at 14:06; Stop 03/15/17 at 14:07; Status DC Fentanyl Citrate (Fentanyl 2ml Vial) 100 mcg STK-MED ONCE .ROUTE ; Start at 14:06; Stop 03/15/17 at 14:07; Status DC Rocuronium [place] (Zemuron) 100 mg STK-MED ONCE .ROUTE ; Start 03/15/17 at 14: 07; Stop 03/15/17 at 14:08; Status DC Succinylcholine Chloride (Anectine) 200 mg STK-MED ONCE .ROUTE ; Start 03/15/17 at 14:07; Stop 03/15/17 at 14:08; Status DC Bupivacaine HCl/ Epinephrine Bitart (Marcaine-Epi 0.5%-[id number]) 50 ml STK-MED ONCE .ROUTE Last administered on 03/15/17 14:54; Start 03/15/17 at 13:07; Stop 03/15/17 at 14:08; Status DC Cefoxitin Sodium 2 gm/Sodium Chloride 100 ml @ 200 mls/hr 1X PREOP IV Last administered on 03/15/17 14:55; Start 03/15/17 at 16:00; Stop 03/16/17 at 14:41 ; Status DC Sodium Chloride 1,000 ml @ 125 mls/hr 1X ONCE IV Last administered on 14:15; Start 03/15/17 at 14:15; Stop 03/15/17 at 22:14; Status DC Cefoxitin Sodium 100 ml @ As Directed STK-MED ONCE IV ; Start 03/15/17 at 14:53 ; Stop 03/15/17 at 14:54; Status DC Enoxaparin Sodium (Lovenox 40mg Syringe) 40 mg Q24H SQ ; Start 03/15/17 at 15:30 ; Stop 03/16/17 at 14:38; Status DC Sodium Chloride (Normal Saline Flush) 3 ml QSHIFT PRN IV AFTER MEDS AND BLOOD DRAWS; Start 03/15/17 at 15:30 Ringer's Solution 1,000 ml @ 125 mls/hr Q8H IV Last administered on 03:40; Start 03/15/17 at 15:19 Acetaminophen/ Hydrocodone Bitart (Lortab 5/325) 1 tab PRN Q4HRS PRN PO MILD PAIN Last administered on 03/16/17 02:56; Start 03/15/17 at 15:30; Stop at 13:05; Status DC Ketorolac Tromethamine (Toradol) 15 mg PRN Q6HRS PRN IV PAIN; Start 03/15/17 at 15:30; Stop 03/16/17 at 09:05; Status DC Morphine Sulfate 2 mg PRN Q1HR PRN IV PAIN Last administered on 03/22/17 09: 36; Start 03/15/17 at 15:30 Docusate Sodium (Colace) 100 mg BID PO Last administered on 03/17/17 13:04; Start 03/15/17 at 21:00 Ondansetron HCl (Zofran) 4 mg PRN Q6HRS PRN IV NAUESA, 1ST CHOICE Last administered on 03/22/17 06:34; Start 03/15/17 at 15:30; Stop 03/22/17 at 09: 09; Status DC Piperacillin Sod/ Tazobactam Sod 3.375 gm/Sodium Chloride 50 ml @ 100 mls/hr Q6HRS IV Last administered on 03/21/17 06:20; Start 03/15/17 at 18:00; Stop 03/21/17 at 09:24; Status DC Morphine Sulfate 10 mg STK-MED ONCE .ROUTE ; Start 03/15/17 at 15:32; Stop 03/15 at 15:33; Status DC Ringer's Solution 1,000 ml @ 125 mls/hr Q8H IV Last administered on 03/16/17 00:51; Start 03/15/17 at 15:42; Stop 03/16/17 at 03:41; Status DC Lidocaine HCl (Xylocaine-Mpf 1% Vial) 0.5 ml 1X PRN PRN INJ IV START; Start at 15:45; Stop 03/16/17 at 15:44; Status DC Ringer's Solution 1,000 ml @ 125 mls/hr Q8H IV ; Start 03/15/17 at 15:42; Stop 03/15/17 at 21:41; Status DC Fentanyl Citrate (Fentanyl 2ml Vial) 25 mcg PRN Q5MIN PRN IV Acute Pain; Start 03/15/17 at 15:45; Stop 03/16/17 at 09:05; Status DC Fentanyl Citrate (Fentanyl 2ml Vial) 50 mcg PRN Q5MIN PRN IV Acute Pain Last administered on 03/15/17 15:58; Start 03/15/17 at 15:45; Stop 03/16/17 at 09:05 ; Status DC Morphine Sulfate 2 mg PRN Q10MIN PRN IV Mild Pain; Start 03/15/17 at 15:45; Stop 03/16/17 at 09:05; Status DC Morphine Sulfate 4 mg PRN Q10MIN PRN IV Moderate Pain; Start 03/15/17 at 15:45 ; Stop 03/16/17 at 09:05; Status DC Ondansetron HCl (Zofran) 4 mg PRN Q6HRS PRN IV Nausea, 1st Choice; Start at 15:45; Stop 03/16/17 at 09:05; Status DC Metoclopramide HCl (Reglan) 10 mg PRN Q6HRS PRN IV Nausea/Vomiting, 2nd Choice Last administered on 03/15/17 18:49; Start 03/15/17 at 15:45; Stop 03/16/17 at 15:44; Status DC Diphenhydramine HCl (Benadryl) 12.5 mg PRN Q2HR PRN IV ITCHING; Start 03/15/17 at 15:45; Stop 03/16/17 at 15:44; Status DC Albuterol Sulfate (Ventolin Neb Soln) 2.5 mg PRN 1X PRN NEB Shortness of Breath , Wheezing; Start 03/15/17 at 15:45; Stop 03/16/17 at 15:44; Status DC Dexamethasone Sodium Phosphate (Decadron) 8 mg 1X PRN PRN IV 3RD CHOICE FOR NAUSEA; Start 03/15/17 at 15:45; Stop 03/16/17 at 15:44; Status DC Meperidine HCl (Demerol) 10 mg 1X PERIOP PRN IV SHIVERING; Start 03/15/17 at 15 :45; Stop 03/16/17 at 15:44; Status DC Meperidine HCl (Demerol) 15 mg 1X PERIOP PRN IV SHIVERING; Start 03/15/17 at 15 :45; Stop 03/16/17 at 15:44; Status DC Prochlorperazine Edisylate (Compazine) 10 mg STK-MED ONCE .ROUTE ; Start at 15:48; Stop 03/15/17 at 15:49; Status DC Prochlorperazine Maleate (Compazine) 5 mg 1X PACU PRN PO NAUSEA/VOMITING; Start 03/15/17 at 16:00; Stop 03/19/17 at 19:03; Status DC Hydromorphone HCl (Dilaudid) 0.5 mg PRN Q10MIN PRN IV PAIN Last administered on 03/15/17 16:52; Start 03/15/17 at 16:15; Stop 03/16/17 at 09:05; Status DC Acetaminophen/ Hydrocodone Bitart (Lortab 5/325) 2 tab PRN Q4HRS PRN PO PAIN Last administered on 03/16/17 10:16; Start 03/16/17 at 09:15; Stop 03/16/17 at 13:05; Status DC Multivitamins (Thera M Plus) 1 tab DAILY PO Last administered on 03/20/17 08: 48; Start 03/16/17 at 13:00 Pantoprazole Sodium (Protonix) 40 mg DAILYAC PO Last administered on 03/20/17 08:48; Start 03/16/17 at 13:00; Stop 03/20/17 at 11:14; Status DC Oxycodone/ Acetaminophen (Percocet 7.5/ 325) 1 tab PRN Q4HRS PRN PO PAIN Last administered on 03/21/17 08:12; Start 03/16/17 at 13:15 Morphine Sulfate 4 mg PRN Q2HR PRN IV PAIN Last administered on 03/18/17 14:11 ; Start 03/16/17 at 13:15 Enoxaparin Sodium (Lovenox 40mg Syringe) 40 mg Q12HR SQ Last administered on 08:47; Start 03/16/17 at 21:00; Stop 03/20/17 at 16:57; Status DC Iohexol (Omnipaque 300 Mg/ml) 75 ml 1X ONCE IV Last administered on 03/17/17 08:00; Start 03/17/17 at 08:00; Stop 03/17/17 at 08:01; Status DC Iohexol (Omnipaque 240 Mg/ml) 50 ml 1X ONCE PO Last administered on 03/17/17 08:00; Start 03/17/17 at 08:00; Stop 03/17/17 at 08:01; Status DC Info (Do NOT chart on this entry -- for MONITORING) 1 each PRN DAILY PRN MC SEE COMMENTS; Start 03/17/17 at 07:45; Stop 03/19/17 at 07:44; Status DC Sodium Chloride 1,000 ml @ 1,000 mls/hr 1X ONCE IV Last administered on 08:00; Start 03/17/17 at 08:00; Stop 03/17/17 at 08:59; Status DC Vancomycin HCl (Vanco Per Pharmacy) 1 each PRN DAILY PRN MC SEE COMMENTS Last administered on 03/18/17 14:24; Start 03/17/17 at 08:00; Stop 03/19/17 at 11:10 ; Status DC Fluconazole/ Sodium Chloride 200 ml @ 100 mls/hr Q24H IV Last administered on 03/21/17 08:07; Start 03/17/17 at 09:00; Stop 03/21/17 at 09:24; Status DC Vancomycin HCl 2 gm/Sodium Chloride 500 ml @ 250 mls/hr 1X ONCE IV Last administered on 03/17/17 13:08; Start 03/17/17 at 09:00; Stop 03/17/17 at 10:59 ; Status DC Acetaminophen (Tylenol) 650 mg PRN Q6HRS PRN PO FEVER Last administered on 06:08; Start 03/17/17 at 08:15 Vancomycin HCl 2 gm/Sodium Chloride 500 ml @ 250 mls/hr Q8H IV Last administered on 03/19/17 05:41; Start 03/17/17 at 22:00; Stop 03/19/17 at 11:10 ; Status DC Vancomycin HCl 1 each 1X ONCE MC ; Start 03/18/17 at 13:30; Stop 03/18/17 at 13 :31; Status DC Calcium Carbonate/ Glycine (Tums) 1,000 mg PRN Q4HRS PRN PO INDIGESTION Last administered on 03/17/17 23:57; Start 03/17/17 at 23:45 Potassium Chloride (Klor-Con) 40 meq 1X ONCE PO Last administered on 14:14; Start 03/18/17 at 12:45; Stop 03/18/17 at 12:46; Status DC Vancomycin HCl 1 each 1X ONCE MC ; Start 03/19/17 at 13:30; Stop 03/19/17 at 13 :30; Status DC Sodium Chloride 1,000 ml @ 1,000 mls/hr 1X ONCE IV Last administered on 14:28; Start 03/19/17 at 12:15; Stop 03/19/17 at 13:14; Status DC Pantoprazole Sodium (Protonix) 40 mg BIDAC PO Last administered on 03/23/17 06:03; Start 03/20/17 at 16:30 Simethicone (Gas-X) 80 mg PRN AFTMEALHC PRN PO GAS / BLOATING Last administered on 03/22/17 08:55; Start 03/20/17 at 11:15 Al Hydroxide/Mg Hydroxide (Mylanta Plus Xs) 30 ml PRN Q2HR PRN PO HEARTBURN / GAS; Start 03/20/17 at 11:15 Enoxaparin Sodium (Lovenox 40mg Syringe) 40 mg DAILY SQ Last administered on 08:09; Start 03/21/17 at 09:00; Stop 03/22/17 at 12:42; Status DC Fluconazole/ Sodium Chloride 100 ml @ 100 mls/hr Q24H IV ; Start 03/22/17 at 09:00; Stop 03/22/17 at 09:00; Status DC Piperacillin Sod/ Tazobactam Sod 3.375 gm/Sodium Chloride 50 ml @ 100 mls/hr Q12HR IV ; Start 03/21/17 at 21:00; Stop 03/21/17 at 21:00; Status DC Fluconazole/ Sodium Chloride 100 ml @ 100 mls/hr Q24H IV Last administered on 03/22/17 09:30; Start 03/22/17 at 09:00 Piperacillin Sod/ Tazobactam Sod 2.25 gm/Sodium Chloride 50 ml @ 100 mls/hr Q6HRS IV Last administered on 03/23/17 05:58; Start 03/21/17 at 12:00 Ondansetron HCl (Zofran) 8 mg PRN Q8HRS PRN IV NAUESA, 1ST CHOICE Last administered on 03/22/17 22:46; Start 03/22/17 at 09:15 Prochlorperazine Edisylate (Compazine) 10 mg PRN Q8HRS PRN IV NAUSEA/VOMITING - 2nd choice Last administered on 03/22/17 18:39; Start 03/22/17 at 09:15 Amino Acids/ Glycerin/ Electrolytes 1,000 ml @ 80 mls/hr [id number] IV Last administered on 03/23/17 03:39; Start 03/22/17 at 11:45 Heparin Sodium (Porcine) (Heparin Sq) 5,000 unit Q8HRS SQ Last administered on 03/23/17 06:02; Start 03/22/17 at 14:00 Loperamide HCl (Imodium) 2 mg PRN Q15MIN PRN PO DIARRHEA; Start 03/23/17 at 08 :00 Active Scripts Active Reported Multivitamins (Multivitamin) 1 Each Tablet 1 Tab PO DAILY Omeprazole 20 Mg Capsule.dr 1 Cap PO DAILY Vitals/I & O Vital Sign - Last 24 Hours 03/22/17 03/22/17 03/22/17 03/22/17 09:36 10:20 11:59 15:00 Temp 97.9 98.9 97.9 98.9 Pulse 74 68 Resp 20 22 18 B/P (MAP) 148/99 (115) 126/86 (99) Pulse Ox 96 96 97 O2 Delivery Room Air Room Air Room Air Room Air O2 Flow Rate 2.0 03/22/17 03/22/17 03/22/17 03/23/17 19:00 20:15 23:00 03:00 Temp 95.0 99.4 99.4 95.0 99.4 99.4 Pulse 75 75 75 Resp 18 B/P (MAP) 122/83 (96) 137/86 (103) 137/86 (103) Pulse Ox 95 95 95 O2 Delivery Room Air Room Air Room Air O2 Flow Rate 2.0 2.0 03/23/17 07:00 Temp 98.2 98.2 Pulse 76 Resp 18 B/P (MAP) 136/84 (101) Pulse Ox 96 O2 Delivery Room Air ADI WRAY MD Mar 23, 2017 09:02
--- NOTE | 2017-03-23 10:03 | PDOC ---
Infectious Disease Note Subjective Subjective feeling better ROS ROS GEN: Denies fevers, chills, sweats HEENT: Denies blurred vision, sore throat CV: Denies chest pain RESP: Denies shortness of air, cough GI: Denies n/v/d NEURO: Denies confusion, dizziness MSK: Denies weakness, joint pain/swelling Vital Sign Vital Signs Vital Signs Date Time Temp Pulse Resp B/P (MAP) Pulse Ox O2 Delivery O2 Flow Rate FiO2 03/23/17 07:00 98.2 76 18 136/84 (101) 96 Room Air 98.2 03/23/17 03:00 2.0 Physical Exam PHYSICAL EXAM GENERAL: NAD, Alert HEENT: PERRL, OC/OP NECK: Supple, no JVD, no LN LUNGS: Clear HEART: S1S2, no gallop, no murmur ABD: Soft, NT, no organomegaly, no rebound EXT: No edema, no cyanosis 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, 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 3, no focal neurologic deficit SKIN: No rash IV: ok Labs Lab Laboratory Tests Test 03/23/17 06:05 Sodium Level 146 mmol/L (136-145) Potassium Level 3.5 mmol/L (3.5-5.1) Chloride Level 109 mmol/L (98-107) Carbon Dioxide Level 25 mmol/L (21-32) Anion Gap 12 (6-14) Blood Urea Nitrogen 25 mg/dL (7-20) Creatinine 6.3 mg/dL (0.6-1.0) Estimated GFR (Cockcroft-Gault) 7.9 Glucose Level 91 mg/dL (70-99) Calcium Level 8.5 mg/dL (8.5-10.1) Phosphorus Level 4.7 mg/dL (2.6-4.7) Magnesium Level 1.8 mg/dL (1.8-2.4) Objective Assessment Appendicitis s/p appendectomy 03/15 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 s/p Dexamethasone 03/15 vs reactive EMILY Plan Plan of Care change Continue Zosyn and Fluconazole to po augmentin Monitor temp, WBC and renal function MELISSA VILLANUEVA MD Mar 23, 2017 10:03
[2017-03-23] MEDS: PROCHLORPERAZINE 10 MG/2 ML VIAL. IV PRN (10:09)
[2017-03-23] MEDS: MULTIVITAMIN with MINERAL TABLET. PO SCH (10:09)
[2017-03-23 11:00] VITALS: BP 144/91
--- NOTE | 2017-03-23 11:51 | PDOC ---
Renal-Progress Notes Subjective Notes Notes NOT EATING, FEELS SWOLLEN History of Present Illness Hx of present illness NO CHANGE Vitals Vitals Vital Signs Date Time Temp Pulse Resp B/P (MAP) Pulse Ox O2 Delivery O2 Flow Rate FiO2 03/23/17 07:00 98.2 76 18 136/84 (101) 96 Room Air 98.2 03/23/17 03:00 2.0 Weight Weight [ ] I.O. Intake and Output Intake and Output 03/24/17 06:59 Intake Total 300 ml Balance 300 ml Intake Oral 300 ml Labs Labs Laboratory Tests Test 03/23/17 06:05 Sodium Level 146 mmol/L (136-145) Potassium Level 3.5 mmol/L (3.5-5.1) Chloride Level 109 mmol/L (98-107) Carbon Dioxide Level 25 mmol/L (21-32) Anion Gap 12 (6-14) Blood Urea Nitrogen 25 mg/dL (7-20) Creatinine 6.3 mg/dL (0.6-1.0) Estimated GFR (Cockcroft-Gault) 7.9 Glucose Level 91 mg/dL (70-99) Calcium Level 8.5 mg/dL (8.5-10.1) Phosphorus Level 4.7 mg/dL (2.6-4.7) Magnesium Level 1.8 mg/dL (1.8-2.4) Micro Micro Microbiology 03/17/17 Blood Culture - Final, Complete NO GROWTH AFTER 5 DAYS Review of Systems Constitutional: yes: malaise, weakness, alert, oriented Ears/Nose/Throat: Yes: no symptom reported Eyes: Yes: no symptom reported Pulmonary: Yes no symptom reported Cardiovascular: Yes no symptom reported Gastrointestional: Yes: diarrhea, abdominal pain Genitourinary: Yes: no symptom reported Musculoskeletal: Yes: muscle stiffness Skin: Yes no symptom reported Psychiatric/Neurological: Yes: no symptom reported Endocrine: Yes: no symptom reported Physical Exam General Appearance: no apparent distress Respiratory: bilateral CTA Heart: S1S2 Abdomen: soft, bowel sounds present Genitourinary: bladder flat Neurology: alert, oriented, follow commands Assessment Assessment IMP EMILY DUE TO CONTRAST-NON OLIGURIC BUT CR UP TO 6.3 BUT STARTING TO PLATEAU S/P LAP APPY DIARRHEA-BETTER PLAN ENC PO-STILL NOT EATING CONT WITH IVF'S CONT PPN LABS IN AM NO DIALYSIS FOR NOW MARLO MOTTA MD Mar 23, 2017 11:51
--- NOTE | 2017-03-23 14:05 | PDOC ---
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 1405: SURGICAL PROGRESS NOTE Subjective still some nausea pain improving Vital Signs Vital Signs Date Time Temp Pulse Resp B/P (MAP) Pulse Ox O2 Delivery O2 Flow Rate FiO2 03/23/17 11:00 98.1 67 18 144/91 (108) 96 Room Air 98.1 03/23/17 03:00 2.0 I&O Intake and Output 03/24/17 07:00 Intake Total 300 ml Balance 300 ml Intake Oral 300 ml General: Alert, Oriented X3, Cooperative, No acute distress Abdomen: Soft, Other (ND) Labs Laboratory Tests Test 03/22/17 06:15 03/23/17 06:05 White Blood Count 8.9 x10^3/uL (4.0-11.0) Red Blood Count 3.57 x10^6/uL (3.50-5.40) Hemoglobin 10.6 g/dL (12.0-15.5) Hematocrit 31.7 % (36.0-47.0) Mean Corpuscular Volume 89 fL (79-100) Mean Corpuscular Hemoglobin 30 pg (25-35) Mean Corpuscular Hemoglobin Concent 34 g/dL (31-37) Red Cell Distribution Width 15.9 % (11.5-14.5) Platelet Count 220 x10^3/uL (140-400) Neutrophils (%) (Auto) 62 % (31-73) Lymphocytes (%) (Auto) 20 % (24-48) Monocytes (%) (Auto) 10 % (0-9) Eosinophils (%) (Auto) 6 % (0-3) Basophils (%) (Auto) 1 % (0-3) Neutrophils # (Auto) 5.5 x10^3uL (1.8-7.7) Lymphocytes # (Auto) 1.8 x10^3/uL (1.0-4.8) Monocytes # (Auto) 0.9 x10^3/uL (0.0-1.1) Eosinophils # (Auto) 0.5 x10^3/uL (0.0-0.7) Basophils # (Auto) 0.1 x10^3/uL (0.0-0.2) Sodium Level 146 mmol/L (136-145) 146 mmol/L (136-145) Potassium Level 3.5 mmol/L (3.5-5.1) 3.5 mmol/L (3.5-5.1) Chloride Level 109 mmol/L (98-107) 109 mmol/L (98-107) Carbon Dioxide Level 25 mmol/L (21-32) 25 mmol/L (21-32) Anion Gap 12 (6-14) 12 (6-14) Blood Urea Nitrogen 22 mg/dL (7-20) 25 mg/dL (7-20) Creatinine 6.1 mg/dL (0.6-1.0) 6.3 mg/dL (0.6-1.0) Estimated GFR (Cockcroft-Gault) 8.2 7.9 BUN/Creatinine Ratio 4 (6-20) Glucose Level 79 mg/dL (70-99) 91 mg/dL (70-99) Calcium Level 8.5 mg/dL (8.5-10.1) 8.5 mg/dL (8.5-10.1) Total Bilirubin 0.4 mg/dL (0.2-1.0) Aspartate Amino Transf (AST/SGOT) 16 U/L (15-37) Alanine Aminotransferase (ALT/SGPT) 15 U/L (14-59) Alkaline Phosphatase 56 U/L (46-116) Total Protein 5.6 g/dL (6.4-8.2) Albumin 1.6 g/dL (3.4-5.0) Albumin/Globulin Ratio 0.4 (1.0-1.7) Phosphorus Level 4.7 mg/dL (2.6-4.7) Magnesium Level 1.8 mg/dL (1.8-2.4) Laboratory Tests Test 03/23/17 06:05 Sodium Level 146 mmol/L (136-145) Potassium Level 3.5 mmol/L (3.5-5.1) Chloride Level 109 mmol/L (98-107) Carbon Dioxide Level 25 mmol/L (21-32) Anion Gap 12 (6-14) Blood Urea Nitrogen 25 mg/dL (7-20) Creatinine 6.3 mg/dL (0.6-1.0) Estimated GFR (Cockcroft-Gault) 7.9 Glucose Level 91 mg/dL (70-99) Calcium Level 8.5 mg/dL (8.5-10.1) Phosphorus Level 4.7 mg/dL (2.6-4.7) Magnesium Level 1.8 mg/dL (1.8-2.4) Problem List s/p appy EMILY, as per renal Problems: MAIRA DANIELLE MD 03/23/17 1513: SURGICAL PROGRESS NOTE Assessment/Plan having dry heaves will add phen suppository Problems: JORGE DEVI APRN Mar 23, 2017 14:05 MAIRA DANIELLE MD Mar 23, 2017 15:13
[2017-03-23] MEDS: AMOXICILLIN/K CLAV 500/125MG TABLET. PO SCH ×2 (14:52→21:23)
[2017-03-23] MEDS: oxyCODONE/APAP 7.5/325 1 TAB TABLET PO PRN (14:59)
[2017-03-23 15:00] VITALS: BP 144/93
[2017-03-23] MEDS: ONDANSETRON PF 4 MG/2 ML VIAL. IV PRN (15:01)
[2017-03-23] MEDS ORDERED: PROMETHAZINE 25 MG SUPP.RECT. PR PRN (15:15)
[2017-03-23 19:30] VITALS: BP 131/86
[2017-03-23 23:43] VITALS: BP 137/87
[2017-03-24 03:00] VITALS: BP 146/86
[2017-03-24] MEDS: ONDANSETRON PF 4 MG/2 ML VIAL. IV PRN ×2 (04:08→12:13)
[2017-03-24] MEDS: AMINO AC 3%/ELECTROLYTE/GLYCER 1,000 ML IV SCH ×3 (04:30→16:34)
[2017-03-24] MEDS: IV RINGERS,LACTATED 1000ML 1,000 ML IV SCH ×4 (06:14→23:40)
[2017-03-24] MEDS: HEPARIN PF for SUB-Q USE 5,000 UNIT/0.5 ML VIAL. SQ SCH ×3 (06:17→21:47)
[2017-03-24 06:56] LABS: ALBUMIN 1.7 g/dL (3.4-5.0); CALCIUM 8.7 mg/dL (8.5-10.1); CREATININE 6.4 mg/dL (0.6-1.0); GFR 7.8; PHOSPHORUS 4.2 mg/dL (2.6-4.7); POTASSIUM 3.6 mmol/L (3.5-5.1)
[2017-03-24 07:00] VITALS: BP 122/89
[2017-03-24] MEDS: PANTOPRAZOLE 40 MG TABLET.DR. PO SCH ×2 (08:33→16:29)
[2017-03-24] MEDS: MULTIVITAMIN with MINERAL TABLET. PO SCH (08:34)
[2017-03-24] MEDS: AMOXICILLIN/K CLAV 500/125MG TABLET. PO SCH ×2 (08:34→21:00)
[2017-03-24] MEDS: DOCUSATE SODIUM 100 MG CAPSULE. PO SCH ×2 (08:34→21:00)
--- NOTE | 2017-03-24 09:27 | PDOC ---
Infectious Disease Note Subjective Subjective feeling better ROS ROS GEN: Denies fevers, chills, sweats HEENT: Denies blurred vision, sore throat CV: Denies chest pain RESP: Denies shortness of air, cough GI: Denies n/v/d NEURO: Denies confusion, dizziness MSK: Denies weakness, joint pain/swelling Vital Sign Vital Signs Vital Signs Date Time Temp Pulse Resp B/P (MAP) Pulse Ox O2 Delivery O2 Flow Rate FiO2 03/24/17 07:00 98.1 70 18 122/89 (100) 96 Room Air 98.1 Physical Exam PHYSICAL EXAM GENERAL: NAD, Alert HEENT: PERRL, OC/OP NECK: Supple, no JVD, no LN LUNGS: Clear HEART: S1S2, no gallop, no murmur ABD: Soft, NT, no organomegaly, no rebound EXT: No edema, no cyanosis [employer]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, 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 s/p Dexamethasone 03/15 vs reactive EMILY Plan Plan of Care po augmentin Monitor temp, WBC and renal function MELISSA VILLANUEVA MD Mar 24, 2017 09:27
--- NOTE | 2017-03-24 10:50 | PDOC ---
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/2017 hypokalemia EMILY, possible ATN with vanco weakness and debility, nausea, abd pain History of Present Illness History of Present Illness NAusea seems better Creat 6.3 NOn oliguric Getting puffy from IVF - educated and counselled NOt thrilled about staying here over weekend TRying to eat more but gets nauseus CReat hoopefully has plateaud PLAN; cpm per renal daily renal panel US kidneys ok Got IV contrast - creat jumped on 03/20 educated her about future IV contrast dye COnt iVF Will stay over weekend Add some more anti nausea med Activity ad rohan Vitals Vitals Vital Signs Date Time Temp Pulse Resp B/P (MAP) Pulse Ox O2 Delivery O2 Flow Rate FiO2 03/24/17 07:45 Room Air 03/24/17 07:00 98.1 70 18 122/89 (100) 96 98.1 Physical Exam General: Alert, Oriented X3, Cooperative, No acute distress Heart: Regular rate Lungs: Clear Abdomen: Soft, Other (ND) Extremities: No clubbing, No cyanosis, No edema Skin: No breakdown, No significant lesion Labs LABS Laboratory Tests Test 03/24/17 06:20 Sodium Level 145 mmol/L (136-145) Potassium Level 3.6 mmol/L (3.5-5.1) Chloride Level 109 mmol/L (98-107) Carbon Dioxide Level 26 mmol/L (21-32) Anion Gap 10 (6-14) Blood Urea Nitrogen 28 mg/dL (7-20) Creatinine 6.4 mg/dL (0.6-1.0) Estimated GFR (Cockcroft-Gault) 7.8 Glucose Level 93 mg/dL (70-99) Calcium Level 8.7 mg/dL (8.5-10.1) Phosphorus Level 4.2 mg/dL (2.6-4.7) Albumin 1.7 g/dL (3.4-5.0) Review of Systems Review of Systems nausea Comment Review of Relevant I have reviewed the following items na (where applicable) has been applied. Labs Laboratory Tests Test 03/23/17 06:05 03/24/17 06:20 Sodium Level 146 mmol/L (136-145) 145 mmol/L (136-145) Potassium Level 3.5 mmol/L (3.5-5.1) 3.6 mmol/L (3.5-5.1) Chloride Level 109 mmol/L (98-107) 109 mmol/L (98-107) Carbon Dioxide Level 25 mmol/L (21-32) 26 mmol/L (21-32) Anion Gap 12 (6-14) 10 (6-14) Blood Urea Nitrogen 25 mg/dL (7-20) 28 mg/dL (7-20) Creatinine 6.3 mg/dL (0.6-1.0) 6.4 mg/dL (0.6-1.0) Estimated GFR (Cockcroft-Gault) 7.9 7.8 Glucose Level 91 mg/dL (70-99) 93 mg/dL (70-99) Calcium Level 8.5 mg/dL (8.5-10.1) 8.7 mg/dL (8.5-10.1) Phosphorus Level 4.7 mg/dL (2.6-4.7) 4.2 mg/dL (2.6-4.7) Magnesium Level 1.8 mg/dL (1.8-2.4) Albumin 1.7 g/dL (3.4-5.0) Laboratory Tests Test 03/24/17 06:20 Sodium Level 145 mmol/L (136-145) Potassium Level 3.6 mmol/L (3.5-5.1) Chloride Level 109 mmol/L (98-107) Carbon Dioxide Level 26 mmol/L (21-32) Anion Gap 10 (6-14) Blood Urea Nitrogen 28 mg/dL (7-20) Creatinine 6.4 mg/dL (0.6-1.0) Estimated GFR (Cockcroft-Gault) 7.8 Glucose Level 93 mg/dL (70-99) Calcium Level 8.7 mg/dL (8.5-10.1) Phosphorus Level 4.2 mg/dL (2.6-4.7) Albumin 1.7 g/dL (3.4-5.0) Microbiology 03/17/17 Blood Culture - Final, Complete NO GROWTH AFTER 5 DAYS Medications Current Medications Dexamethasone Sodium Phosphate (Decadron) 20 mg STK-MED ONCE .ROUTE ; Start 03/15/17 at 14:06; Stop 03/15/17 at 14:07; Status DC Ondansetron HCl (Zofran) 4 mg STK-MED ONCE .ROUTE ; Start 03/15/17 at 14:06; Stop 03/15/17 at 14:07; Status DC Propofol 20 ml @ As Directed STK-MED ONCE IV ; Start 03/15/17 at 14:06; Stop at 14:07; Status DC Lidocaine HCl (Lidocaine Pf 2% Vial) 5 ml STK-MED ONCE .ROUTE ; Start 03/15/17 at 14:06; Stop 03/15/17 at 14:07; Status DC Midazolam HCl (Versed) 2 mg STK-MED ONCE .ROUTE ; Start 03/15/17 at 14:06; Stop 03/15/17 at 14:07; Status DC Fentanyl Citrate (Fentanyl 2ml Vial) 100 mcg STK-MED ONCE .ROUTE ; Start at 14:06; Stop 03/15/17 at 14:07; Status DC Rocuronium [place] (Zemuron) 100 mg STK-MED ONCE .ROUTE ; Start 03/15/17 at 14: 07; Stop 03/15/17 at 14:08; Status DC Succinylcholine Chloride (Anectine) 200 mg STK-MED ONCE .ROUTE ; Start 03/15/17 at 14:07; Stop 03/15/17 at 14:08; Status DC Bupivacaine HCl/ Epinephrine Bitart (Marcaine-Epi 0.5%-[id number]) 50 ml STK-MED ONCE .ROUTE Last administered on 03/15/17 14:54; Start 03/15/17 at 13:07; Stop 03/15/17 at 14:08; Status DC Cefoxitin Sodium 2 gm/Sodium Chloride 100 ml @ 200 mls/hr 1X PREOP IV Last administered on 03/15/17 14:55; Start 03/15/17 at 16:00; Stop 03/16/17 at 14:41 ; Status DC Sodium Chloride 1,000 ml @ 125 mls/hr 1X ONCE IV Last administered on 14:15; Start 03/15/17 at 14:15; Stop 03/15/17 at 22:14; Status DC Cefoxitin Sodium 100 ml @ As Directed STK-MED ONCE IV ; Start 03/15/17 at 14:53 ; Stop 03/15/17 at 14:54; Status DC Enoxaparin Sodium (Lovenox 40mg Syringe) 40 mg Q24H SQ ; Start 03/15/17 at 15:30 ; Stop 03/16/17 at 14:38; Status DC Sodium Chloride (Normal Saline Flush) 3 ml QSHIFT PRN IV AFTER MEDS AND BLOOD DRAWS; Start 03/15/17 at 15:30 Ringer's Solution 1,000 ml @ 125 mls/hr Q8H IV Last administered on 06:14; Start 03/15/17 at 15:19 Acetaminophen/ Hydrocodone Bitart (Lortab 5/325) 1 tab PRN Q4HRS PRN PO MILD PAIN Last administered on 03/16/17 02:56; Start 03/15/17 at 15:30; Stop at 13:05; Status DC Ketorolac Tromethamine (Toradol) 15 mg PRN Q6HRS PRN IV PAIN; Start 03/15/17 at 15:30; Stop 03/16/17 at 09:05; Status DC Morphine Sulfate 2 mg PRN Q1HR PRN IV PAIN Last administered on 03/22/17 09: 36; Start 03/15/17 at 15:30 Docusate Sodium (Colace) 100 mg BID PO Last administered on 03/17/17 13:04; Start 03/15/17 at 21:00 Ondansetron HCl (Zofran) 4 mg PRN Q6HRS PRN IV NAUESA, 1ST CHOICE Last administered on 03/22/17 06:34; Start 03/15/17 at 15:30; Stop 03/22/17 at 09: 09; Status DC Piperacillin Sod/ Tazobactam Sod 3.375 gm/Sodium Chloride 50 ml @ 100 mls/hr Q6HRS IV Last administered on 03/21/17 06:20; Start 03/15/17 at 18:00; Stop 03/21/17 at 09:24; Status DC Morphine Sulfate 10 mg STK-MED ONCE .ROUTE ; Start 03/15/17 at 15:32; Stop 03/15 at 15:33; Status DC Ringer's Solution 1,000 ml @ 125 mls/hr Q8H IV Last administered on 03/16/17 00:51; Start 03/15/17 at 15:42; Stop 03/16/17 at 03:41; Status DC Lidocaine HCl (Xylocaine-Mpf 1% Vial) 0.5 ml 1X PRN PRN INJ IV START; Start at 15:45; Stop 03/16/17 at 15:44; Status DC Ringer's Solution 1,000 ml @ 125 mls/hr Q8H IV ; Start 03/15/17 at 15:42; Stop 03/15/17 at 21:41; Status DC Fentanyl Citrate (Fentanyl 2ml Vial) 25 mcg PRN Q5MIN PRN IV Acute Pain; Start 03/15/17 at 15:45; Stop 03/16/17 at 09:05; Status DC Fentanyl Citrate (Fentanyl 2ml Vial) 50 mcg PRN Q5MIN PRN IV Acute Pain Last administered on 03/15/17 15:58; Start 03/15/17 at 15:45; Stop 03/16/17 at 09:05 ; Status DC Morphine Sulfate 2 mg PRN Q10MIN PRN IV Mild Pain; Start 03/15/17 at 15:45; Stop 03/16/17 at 09:05; Status DC Morphine Sulfate 4 mg PRN Q10MIN PRN IV Moderate Pain; Start 03/15/17 at 15:45 ; Stop 03/16/17 at 09:05; Status DC Ondansetron HCl (Zofran) 4 mg PRN Q6HRS PRN IV Nausea, 1st Choice; Start at 15:45; Stop 03/16/17 at 09:05; Status DC Metoclopramide HCl (Reglan) 10 mg PRN Q6HRS PRN IV Nausea/Vomiting, 2nd Choice Last administered on 03/15/17 18:49; Start 03/15/17 at 15:45; Stop 03/16/17 at 15:44; Status DC Diphenhydramine HCl (Benadryl) 12.5 mg PRN Q2HR PRN IV ITCHING; Start 03/15/17 at 15:45; Stop 03/16/17 at 15:44; Status DC Albuterol Sulfate (Ventolin Neb Soln) 2.5 mg PRN 1X PRN NEB Shortness of Breath , Wheezing; Start 03/15/17 at 15:45; Stop 03/16/17 at 15:44; Status DC Dexamethasone Sodium Phosphate (Decadron) 8 mg 1X PRN PRN IV 3RD CHOICE FOR NAUSEA; Start 03/15/17 at 15:45; Stop 03/16/17 at 15:44; Status DC Meperidine HCl (Demerol) 10 mg 1X PERIOP PRN IV SHIVERING; Start 03/15/17 at 15 :45; Stop 03/16/17 at 15:44; Status DC Meperidine HCl (Demerol) 15 mg 1X PERIOP PRN IV SHIVERING; Start 03/15/17 at 15 :45; Stop 03/16/17 at 15:44; Status DC Prochlorperazine Edisylate (Compazine) 10 mg STK-MED ONCE .ROUTE ; Start at 15:48; Stop 03/15/17 at 15:49; Status DC Prochlorperazine Maleate (Compazine) 5 mg 1X PACU PRN PO NAUSEA/VOMITING; Start 03/15/17 at 16:00; Stop 03/19/17 at 19:03; Status DC Hydromorphone HCl (Dilaudid) 0.5 mg PRN Q10MIN PRN IV PAIN Last administered on 03/15/17 16:52; Start 03/15/17 at 16:15; Stop 03/16/17 at 09:05; Status DC Acetaminophen/ Hydrocodone Bitart (Lortab 5/325) 2 tab PRN Q4HRS PRN PO PAIN Last administered on 03/16/17 10:16; Start 03/16/17 at 09:15; Stop 03/16/17 at 13:05; Status DC Multivitamins (Thera M Plus) 1 tab DAILY PO Last administered on 03/24/17 08: 34; Start 03/16/17 at 13:00 Pantoprazole Sodium (Protonix) 40 mg DAILYAC PO Last administered on 03/20/17 08:48; Start 03/16/17 at 13:00; Stop 03/20/17 at 11:14; Status DC Oxycodone/ Acetaminophen (Percocet 7.5/ 325) 1 tab PRN Q4HRS PRN PO PAIN Last administered on 03/23/17 14:59; Start 03/16/17 at 13:15 Morphine Sulfate 4 mg PRN Q2HR PRN IV PAIN Last administered on 03/18/17 14:11 ; Start 03/16/17 at 13:15 Enoxaparin Sodium (Lovenox 40mg Syringe) 40 mg Q12HR SQ Last administered on 08:47; Start 03/16/17 at 21:00; Stop 03/20/17 at 16:57; Status DC Iohexol (Omnipaque 300 Mg/ml) 75 ml 1X ONCE IV Last administered on 03/17/17 08:00; Start 03/17/17 at 08:00; Stop 03/17/17 at 08:01; Status DC Iohexol (Omnipaque 240 Mg/ml) 50 ml 1X ONCE PO Last administered on 03/17/17 08:00; Start 03/17/17 at 08:00; Stop 03/17/17 at 08:01; Status DC Info (Do NOT chart on this entry -- for MONITORING) 1 each PRN DAILY PRN MC SEE COMMENTS; Start 03/17/17 at 07:45; Stop 03/19/17 at 07:44; Status DC Sodium Chloride 1,000 ml @ 1,000 mls/hr 1X ONCE IV Last administered on 08:00; Start 03/17/17 at 08:00; Stop 03/17/17 at 08:59; Status DC Vancomycin HCl (Vanco Per Pharmacy) 1 each PRN DAILY PRN MC SEE COMMENTS Last administered on 03/18/17 14:24; Start 03/17/17 at 08:00; Stop 03/19/17 at 11:10 ; Status DC Fluconazole/ Sodium Chloride 200 ml @ 100 mls/hr Q24H IV Last administered on 03/21/17 08:07; Start 03/17/17 at 09:00; Stop 03/21/17 at 09:24; Status DC Vancomycin HCl 2 gm/Sodium Chloride 500 ml @ 250 mls/hr 1X ONCE IV Last administered on 03/17/17 13:08; Start 03/17/17 at 09:00; Stop 03/17/17 at 10:59 ; Status DC Acetaminophen (Tylenol) 650 mg PRN Q6HRS PRN PO FEVER Last administered on 22:38; Start 03/17/17 at 08:15 Vancomycin HCl 2 gm/Sodium Chloride 500 ml @ 250 mls/hr Q8H IV Last administered on 03/19/17 05:41; Start 03/17/17 at 22:00; Stop 03/19/17 at 11:10 ; Status DC Vancomycin HCl 1 each 1X ONCE MC ; Start 03/18/17 at 13:30; Stop 03/18/17 at 13 :31; Status DC Calcium Carbonate/ Glycine (Tums) 1,000 mg PRN Q4HRS PRN PO INDIGESTION Last administered on 03/17/17 23:57; Start 03/17/17 at 23:45 Potassium Chloride (Klor-Con) 40 meq 1X ONCE PO Last administered on 14:14; Start 03/18/17 at 12:45; Stop 03/18/17 at 12:46; Status DC Vancomycin HCl 1 each 1X ONCE MC ; Start 03/19/17 at 13:30; Stop 03/19/17 at 13 :30; Status DC Sodium Chloride 1,000 ml @ 1,000 mls/hr 1X ONCE IV Last administered on 14:28; Start 03/19/17 at 12:15; Stop 03/19/17 at 13:14; Status DC Pantoprazole Sodium (Protonix) 40 mg BIDAC PO Last administered on 03/24/17 08:33; Start 03/20/17 at 16:30 Simethicone (Gas-X) 80 mg PRN AFTMEALHC PRN PO GAS / BLOATING Last administered on 03/22/17 08:55; Start 03/20/17 at 11:15 Al Hydroxide/Mg Hydroxide (Mylanta Plus Xs) 30 ml PRN Q2HR PRN PO HEARTBURN / GAS; Start 03/20/17 at 11:15 Enoxaparin Sodium (Lovenox 40mg Syringe) 40 mg DAILY SQ Last administered on 08:09; Start 03/21/17 at 09:00; Stop 03/22/17 at 12:42; Status DC Fluconazole/ Sodium Chloride 100 ml @ 100 mls/hr Q24H IV ; Start 03/22/17 at 09:00; Stop 03/22/17 at 09:00; Status DC Piperacillin Sod/ Tazobactam Sod 3.375 gm/Sodium Chloride 50 ml @ 100 mls/hr Q12HR IV ; Start 03/21/17 at 21:00; Stop 03/21/17 at 21:00; Status DC Fluconazole/ Sodium Chloride 100 ml @ 100 mls/hr Q24H IV Last administered on 03/22/17 09:30; Start 03/22/17 at 09:00; Stop 03/23/17 at 10:05; Status DC Piperacillin Sod/ Tazobactam Sod 2.25 gm/Sodium Chloride 50 ml @ 100 mls/hr Q6HRS IV Last administered on 03/23/17 05:58; Start 03/21/17 at 12:00; Stop 03/23/17 at 10:05; Status DC Ondansetron HCl (Zofran) 8 mg PRN Q8HRS PRN IV NAUESA, 1ST CHOICE Last administered on 03/24/17 04:08; Start 03/22/17 at 09:15 Prochlorperazine Edisylate (Compazine) 10 mg PRN Q8HRS PRN IV NAUSEA/VOMITING - 2nd choice Last administered on 03/23/17 10:09; Start 03/22/17 at 09:15 Amino Acids/ Glycerin/ Electrolytes 1,000 ml @ 80 mls/hr [id number] IV Last administered on 03/24/17 04:30; Start 03/22/17 at 11:45 Heparin Sodium (Porcine) (Heparin Sq) 5,000 unit Q8HRS SQ Last administered on 03/24/17 06:17; Start 03/22/17 at 14:00 Loperamide HCl (Imodium) 2 mg PRN Q15MIN PRN PO DIARRHEA; Start 03/23/17 at 08 :00 Amoxicillin/ Clavulanate Potassium (Augmentin 500/ 125mg) 1 tab BID PO Last administered on 03/24/17 08:34; Start 03/23/17 at 10:30 Promethazine HCl (Phenergan) 25 mg PRN Q6HRS PRN MI NAUSEA/VOMITING; Start 05/28 at 15:15 Active Scripts Active Reported Multivitamins (Multivitamin) 1 Each Tablet 1 Tab PO DAILY Omeprazole 20 Mg Capsule.dr 1 Cap PO DAILY Vitals/I & O Vital Sign - Last 24 Hours 03/23/17 03/23/17 03/23/17 03/23/17 11:00 14:59 15:00 17:27 Temp 98.1 98.4 98.1 98.4 Pulse 67 75 Resp 18 18 B/P (MAP) 144/91 (108) 144/93 (110) Pulse Ox 96 96 97 O2 Delivery Room Air Room Air Room Air Room Air 03/23/17 03/23/17 03/23/17 03/24/17 19:30 20:15 23:43 03:00 Temp 98.8 98.8 98.1 98.8 98.8 98.1 Pulse 68 71 70 Resp 18 18 18 B/P (MAP) 131/86 (101) 137/87 (104) 146/86 (106) Pulse Ox 97 96 93 O2 Delivery Room Air Room Air Room Air Room Air 03/24/17 03/24/17 07:00 07:45 Temp 98.1 98.1 Pulse 70 Resp 18 B/P (MAP) 122/89 (100) Pulse Ox 96 O2 Delivery Room Air Room Air ADI WRAY MD Mar 24, 2017 10:50
[2017-03-24 11:00] VITALS: BP 128/89
--- NOTE | 2017-03-24 11:24 | PDOC ---
Renal-Progress Notes Subjective Notes Notes FEELING BETTER, SITTING UP History of Present Illness Hx of present illness STABLE Vitals Vitals Vital Signs Date Time Temp Pulse Resp B/P (MAP) Pulse Ox O2 Delivery O2 Flow Rate FiO2 03/24/17 07:45 Room Air 03/24/17 07:00 98.1 70 18 122/89 (100) 96 98.1 Weight Weight [ ] Labs Labs Laboratory Tests Test 03/24/17 06:20 Sodium Level 145 mmol/L (136-145) Potassium Level 3.6 mmol/L (3.5-5.1) Chloride Level 109 mmol/L (98-107) Carbon Dioxide Level 26 mmol/L (21-32) Anion Gap 10 (6-14) Blood Urea Nitrogen 28 mg/dL (7-20) Creatinine 6.4 mg/dL (0.6-1.0) Estimated GFR (Cockcroft-Gault) 7.8 Glucose Level 93 mg/dL (70-99) Calcium Level 8.7 mg/dL (8.5-10.1) Phosphorus Level 4.2 mg/dL (2.6-4.7) Albumin 1.7 g/dL (3.4-5.0) Micro Micro Microbiology 03/17/17 Blood Culture - Final, Complete NO GROWTH AFTER 5 DAYS Review of Systems Constitutional: yes: malaise, weakness, alert, oriented Ears/Nose/Throat: Yes: no symptom reported Eyes: Yes: no symptom reported Pulmonary: Yes no symptom reported Cardiovascular: Yes no symptom reported Gastrointestional: Yes: diarrhea, abdominal pain Genitourinary: Yes: no symptom reported Musculoskeletal: Yes: muscle stiffness Skin: Yes no symptom reported Psychiatric/Neurological: Yes: no symptom reported Endocrine: Yes: no symptom reported Physical Exam General Appearance: no apparent distress Respiratory: bilateral CTA Heart: S1S2 Abdomen: soft, bowel sounds present Genitourinary: bladder flat Neurology: alert, oriented, follow commands Assessment Assessment IMP EMILY DUE TO CONTRAST-NON OLIGURIC BUT CR UP TO 6.3 BUT STARTING TO PLATEAU S/P LAP APPY DIARRHEA-BETTER GENERALIZED EDEMA PLAN ENC PO-STILL NOT EATING CONT WITH IVF'S CONT PPN IV LASIX NO DIALYSIS FOR NOW MARLO MOTTA MD Mar 24, 2017 11:24
[2017-03-24] MEDS ORDERED: FUROSEMIDE 100 MG/10 ML VIAL. IVP ONE (11:30)
--- NOTE | 2017-03-24 13:18 | PDOC ---
SURGICAL PROGRESS NOTE Subjective resting nausea down right now Vital Signs Vital Signs Date Time Temp Pulse Resp B/P (MAP) Pulse Ox O2 Delivery O2 Flow Rate FiO2 03/24/17 11:00 98.3 72 18 128/89 (102) 93 Room Air 98.3 General: Alert, Oriented X3, Cooperative, No acute distress Abdomen: Soft, Other (lap sites c/d/i) Labs Laboratory Tests Test 03/23/17 06:05 03/24/17 06:20 Sodium Level 146 mmol/L (136-145) 145 mmol/L (136-145) Potassium Level 3.5 mmol/L (3.5-5.1) 3.6 mmol/L (3.5-5.1) Chloride Level 109 mmol/L (98-107) 109 mmol/L (98-107) Carbon Dioxide Level 25 mmol/L (21-32) 26 mmol/L (21-32) Anion Gap 12 (6-14) 10 (6-14) Blood Urea Nitrogen 25 mg/dL (7-20) 28 mg/dL (7-20) Creatinine 6.3 mg/dL (0.6-1.0) 6.4 mg/dL (0.6-1.0) Estimated GFR (Cockcroft-Gault) 7.9 7.8 Glucose Level 91 mg/dL (70-99) 93 mg/dL (70-99) Calcium Level 8.5 mg/dL (8.5-10.1) 8.7 mg/dL (8.5-10.1) Phosphorus Level 4.7 mg/dL (2.6-4.7) 4.2 mg/dL (2.6-4.7) Magnesium Level 1.8 mg/dL (1.8-2.4) Albumin 1.7 g/dL (3.4-5.0) Laboratory Tests Test 03/24/17 06:20 Sodium Level 145 mmol/L (136-145) Potassium Level 3.6 mmol/L (3.5-5.1) Chloride Level 109 mmol/L (98-107) Carbon Dioxide Level 26 mmol/L (21-32) Anion Gap 10 (6-14) Blood Urea Nitrogen 28 mg/dL (7-20) Creatinine 6.4 mg/dL (0.6-1.0) Estimated GFR (Cockcroft-Gault) 7.8 Glucose Level 93 mg/dL (70-99) Calcium Level 8.7 mg/dL (8.5-10.1) Phosphorus Level 4.2 mg/dL (2.6-4.7) Albumin 1.7 g/dL (3.4-5.0) Problem List ARF, as per Renal Problems: JORGE DEVI APRN Mar 24, 2017 13:18
[2017-03-24 15:00] VITALS: BP 131/88
[2017-03-24] MEDS: PROCHLORPERAZINE 10 MG/2 ML VIAL. IV PRN (16:28)
[2017-03-24] MEDS: ACETAMINOPHEN 325 MG TABLET. PO PRN (16:34)
[2017-03-24 19:00] VITALS: BP 145/104
[2017-03-24 23:00] VITALS: BP 136/94
[2017-03-25] VITALS (17 sets, daily range): BP systolic 89–158; BP diastolic 53–96
[2017-03-25] MEDS: HEPARIN PF for SUB-Q USE 5,000 UNIT/0.5 ML VIAL. SQ SCH (06:07)
[2017-03-25] MEDS: ONDANSETRON PF 4 MG/2 ML VIAL. IV PRN (06:17)
[2017-03-25] MEDS: AMINO AC 3%/ELECTROLYTE/GLYCER 1,000 ML IV SCH ×2 (06:43→17:09)
[2017-03-25 07:57] LABS: ALBUMIN 1.8 g/dL (3.4-5.0); PHOSPHORUS 4.5 mg/dL (2.6-4.7)
[2017-03-25 07:59] LABS: CREATININE 6.1 mg/dL (0.6-1.0); GFR 8.2; POTASSIUM 3.8 mmol/L (3.5-5.1)
[2017-03-25] MEDS: AMOXICILLIN/K CLAV 500/125MG TABLET. PO SCH (08:31)
[2017-03-25] MEDS: DOCUSATE SODIUM 100 MG CAPSULE. PO SCH ×2 (08:31→21:00)
[2017-03-25] MEDS: MULTIVITAMIN with MINERAL TABLET. PO SCH (08:31)
[2017-03-25] MEDS: PANTOPRAZOLE 40 MG TABLET.DR. PO SCH (08:31)
--- NOTE | 2017-03-25 08:45 | PDOC ---
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 Status post appendectomy with residual streaky inflammation and bubbles of gas in the pericecal region. 2. Increasing fluid collection in the cul-de-sac. CT follow-up may be useful in excluding developing abscess. 3. Mild bibasilar atelectasis. 4. 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 LAbs BMP today creat 6.1, K and AGAP and bicarb all ok. NOn oliguric PLAn: Re- CT scan with oral contrast today BMP daily Await GS rounds -- re persistent nausea... dw RN Sanna and pt So far good uO pt wants to go hoem MAy dc heparin SQ shots (ambulatory) Vitals Vitals Vital Signs Date Time Temp Pulse Resp B/P (MAP) Pulse Ox O2 Delivery O2 Flow Rate FiO2 03/25/17 07:00 97.9 80 20 130/82 (98) 94 Room Air 97.9 Physical Exam General: Alert, Oriented X3, Cooperative, No acute distress Heart: Regular rate Lungs: Clear Abdomen: Soft, Other (lap sites c/d/i) Extremities: No clubbing, No cyanosis, No edema Skin: No breakdown, No significant lesion Labs LABS Laboratory Tests Test 03/25/17 06:05 Sodium Level 145 mmol/L (136-145) Potassium Level 3.8 mmol/L (3.5-5.1) Chloride Level 107 mmol/L (98-107) Carbon Dioxide Level 28 mmol/L (21-32) Anion Gap 10 (6-14) Blood Urea Nitrogen 29 mg/dL (7-20) Creatinine 6.1 mg/dL (0.6-1.0) Estimated GFR (Cockcroft-Gault) 8.2 Glucose Level 96 mg/dL (70-99) Calcium Level 9.0 mg/dL (8.5-10.1) Phosphorus Level 4.5 mg/dL (2.6-4.7) Albumin 1.8 g/dL (3.4-5.0) Review of Systems Review of Systems nausea, no CP, no SOA Comment Review of Relevant I have reviewed the following items na (where applicable) has been applied. Labs Laboratory Tests Test 03/24/17 06:20 03/25/17 06:05 Sodium Level 145 mmol/L (136-145) 145 mmol/L (136-145) Potassium Level 3.6 mmol/L (3.5-5.1) 3.8 mmol/L (3.5-5.1) Chloride Level 109 mmol/L (98-107) 107 mmol/L (98-107) Carbon Dioxide Level 26 mmol/L (21-32) 28 mmol/L (21-32) Anion Gap 10 (6-14) 10 (6-14) Blood Urea Nitrogen 28 mg/dL (7-20) 29 mg/dL (7-20) Creatinine 6.4 mg/dL (0.6-1.0) 6.1 mg/dL (0.6-1.0) Estimated GFR (Cockcroft-Gault) 7.8 8.2 Glucose Level 93 mg/dL (70-99) 96 mg/dL (70-99) Calcium Level 8.7 mg/dL (8.5-10.1) 9.0 mg/dL (8.5-10.1) Phosphorus Level 4.2 mg/dL (2.6-4.7) 4.5 mg/dL (2.6-4.7) Albumin 1.7 g/dL (3.4-5.0) 1.8 g/dL (3.4-5.0) Laboratory Tests Test 03/25/17 06:05 Sodium Level 145 mmol/L (136-145) Potassium Level 3.8 mmol/L (3.5-5.1) Chloride Level 107 mmol/L (98-107) Carbon Dioxide Level 28 mmol/L (21-32) Anion Gap 10 (6-14) Blood Urea Nitrogen 29 mg/dL (7-20) Creatinine 6.1 mg/dL (0.6-1.0) Estimated GFR (Cockcroft-Gault) 8.2 Glucose Level 96 mg/dL (70-99) Calcium Level 9.0 mg/dL (8.5-10.1) Phosphorus Level 4.5 mg/dL (2.6-4.7) Albumin 1.8 g/dL (3.4-5.0) Microbiology 03/17/17 Blood Culture - Final, Complete NO GROWTH AFTER 5 DAYS Medications Current Medications Dexamethasone Sodium Phosphate (Decadron) 20 mg STK-MED ONCE .ROUTE ; Start 03/15/17 at 14:06; Stop 03/15/17 at 14:07; Status DC Ondansetron HCl (Zofran) 4 mg STK-MED ONCE .ROUTE ; Start 03/15/17 at 14:06; Stop 03/15/17 at 14:07; Status DC Propofol 20 ml @ As Directed STK-MED ONCE IV ; Start 03/15/17 at 14:06; Stop at 14:07; Status DC Lidocaine HCl (Lidocaine Pf 2% Vial) 5 ml STK-MED ONCE .ROUTE ; Start 03/15/17 at 14:06; Stop 03/15/17 at 14:07; Status DC Midazolam HCl (Versed) 2 mg STK-MED ONCE .ROUTE ; Start 03/15/17 at 14:06; Stop 03/15/17 at 14:07; Status DC Fentanyl Citrate (Fentanyl 2ml Vial) 100 mcg STK-MED ONCE .ROUTE ; Start at 14:06; Stop 03/15/17 at 14:07; Status DC Rocuronium Lorado (Zemuron) 100 mg STK-MED ONCE .ROUTE ; Start 03/15/17 at 14: 07; Stop 03/15/17 at 14:08; Status DC Succinylcholine Chloride (Anectine) 200 mg STK-MED ONCE .ROUTE ; Start 03/15/17 at 14:07; Stop 03/15/17 at 14:08; Status DC Bupivacaine HCl/ Epinephrine Bitart (Marcaine-Epi 0.5%-[id number]) 50 ml STK-MED ONCE .ROUTE Last administered on 03/15/17t 14:54; Start 03/15/17 at 13:07; Stop 03/15/17 at 14:08; Status DC Cefoxitin Sodium 2 gm/Sodium Chloride 100 ml @ 200 mls/hr 1X PREOP IV Last administered on 03/15/17 14:55; Start 03/15/17 at 16:00; Stop 03/16/17 at 14:41 ; Status DC Sodium Chloride 1,000 ml @ 125 mls/hr 1X ONCE IV Last administered on 14:15; Start 03/15/17 at 14:15; Stop 03/15/17 at 22:14; Status DC Cefoxitin Sodium 100 ml @ As Directed STK-MED ONCE IV ; Start 03/15/17 at 14:53 ; Stop 03/15/17 at 14:54; Status DC Enoxaparin Sodium (Lovenox 40mg Syringe) 40 mg Q24H SQ ; Start 03/15/17 at 15:30 ; Stop 03/16/17 at 14:38; Status DC Sodium Chloride (Normal Saline Flush) 3 ml QSHIFT PRN IV AFTER MEDS AND BLOOD DRAWS; Start 03/15/17 at 15:30 Ringer's Solution 1,000 ml @ 125 mls/hr Q8H IV Last administered on 23:40; Start 03/15/17 at 15:19 Acetaminophen/ Hydrocodone Bitart (Lortab 5/325) 1 tab PRN Q4HRS PRN PO MILD PAIN Last administered on 03/16/17 02:56; Start 03/15/17 at 15:30; Stop at 13:05; Status DC Ketorolac Tromethamine (Toradol) 15 mg PRN Q6HRS PRN IV PAIN; Start 03/15/17 at 15:30; Stop 03/16/17 at 09:05; Status DC Morphine Sulfate 2 mg PRN Q1HR PRN IV PAIN Last administered on 03/22/17 09: 36; Start 03/15/17 at 15:30 Docusate Sodium (Colace) 100 mg BID PO Last administered on 03/17/17 13:04; Start 03/15/17 at 21:00 Ondansetron HCl (Zofran) 4 mg PRN Q6HRS PRN IV NAUESA, 1ST CHOICE Last administered on 03/22/17 06:34; Start 03/15/17 at 15:30; Stop 03/22/17 at 09: 09; Status DC Piperacillin Sod/ Tazobactam Sod 3.375 gm/Sodium Chloride 50 ml @ 100 mls/hr Q6HRS IV Last administered on 03/21/17 06:20; Start 03/15/17 at 18:00; Stop 03/21/17 at 09:24; Status DC Morphine Sulfate 10 mg STK-MED ONCE .ROUTE ; Start 03/15/17 at 15:32; Stop 03/15 at 15:33; Status DC Ringer's Solution 1,000 ml @ 125 mls/hr Q8H IV Last administered on 03/16/17 00:51; Start 03/15/17 at 15:42; Stop 03/16/17 at 03:41; Status DC Lidocaine HCl (Xylocaine-Mpf 1% Vial) 0.5 ml 1X PRN PRN INJ IV START; Start at 15:45; Stop 03/16/17 at 15:44; Status DC Ringer's Solution 1,000 ml @ 125 mls/hr Q8H IV ; Start 03/15/17 at 15:42; Stop 03/15/17 at 21:41; Status DC Fentanyl Citrate (Fentanyl 2ml Vial) 25 mcg PRN Q5MIN PRN IV Acute Pain; Start 03/15/17 at 15:45; Stop 03/16/17 at 09:05; Status DC Fentanyl Citrate (Fentanyl 2ml Vial) 50 mcg PRN Q5MIN PRN IV Acute Pain Last administered on 03/15/17 15:58; Start 03/15/17 at 15:45; Stop 03/16/17 at 09:05 ; Status DC Morphine Sulfate 2 mg PRN Q10MIN PRN IV Mild Pain; Start 03/15/17 at 15:45; Stop 03/16/17 at 09:05; Status DC Morphine Sulfate 4 mg PRN Q10MIN PRN IV Moderate Pain; Start 03/15/17 at 15:45 ; Stop 03/16/17 at 09:05; Status DC Ondansetron HCl (Zofran) 4 mg PRN Q6HRS PRN IV Nausea, 1st Choice; Start at 15:45; Stop 03/16/17 at 09:05; Status DC Metoclopramide HCl (Reglan) 10 mg PRN Q6HRS PRN IV Nausea/Vomiting, 2nd Choice Last administered on 03/15/17 18:49; Start 03/15/17 at 15:45; Stop 03/16/17 at 15:44; Status DC Diphenhydramine HCl (Benadryl) 12.5 mg PRN Q2HR PRN IV ITCHING; Start 03/15/17 at 15:45; Stop 03/16/17 at 15:44; Status DC Albuterol Sulfate (Ventolin Neb Soln) 2.5 mg PRN 1X PRN NEB Shortness of Breath , Wheezing; Start 03/15/17 at 15:45; Stop 03/16/17 at 15:44; Status DC Dexamethasone Sodium Phosphate (Decadron) 8 mg 1X PRN PRN IV 3RD CHOICE FOR NAUSEA; Start 03/15/17 at 15:45; Stop 03/16/17 at 15:44; Status DC Meperidine HCl (Demerol) 10 mg 1X PERIOP PRN IV SHIVERING; Start 03/15/17 at 15 :45; Stop 03/16/17 at 15:44; Status DC Meperidine HCl (Demerol) 15 mg 1X PERIOP PRN IV SHIVERING; Start 03/15/17 at 15 :45; Stop 03/16/17 at 15:44; Status DC Prochlorperazine Edisylate (Compazine) 10 mg STK-MED ONCE .ROUTE ; Start at 15:48; Stop 03/15/17 at 15:49; Status DC Prochlorperazine Maleate (Compazine) 5 mg 1X PACU PRN PO NAUSEA/VOMITING; Start 03/15/17 at 16:00; Stop 03/19/17 at 19:03; Status DC Hydromorphone HCl (Dilaudid) 0.5 mg PRN Q10MIN PRN IV PAIN Last administered on 03/15/17 16:52; Start 03/15/17 at 16:15; Stop 03/16/17 at 09:05; Status DC Acetaminophen/ Hydrocodone Bitart (Lortab 5/325) 2 tab PRN Q4HRS PRN PO PAIN Last administered on 03/16/17 10:16; Start 03/16/17 at 09:15; Stop 03/16/17 at 13:05; Status DC Multivitamins (Thera M Plus) 1 tab DAILY PO Last administered on 03/25/17 08: 31; Start 03/16/17 at 13:00 Pantoprazole Sodium (Protonix) 40 mg DAILYAC PO Last administered on 03/20/17 08:48; Start 03/16/17 at 13:00; Stop 03/20/17 at 11:14; Status DC Oxycodone/ Acetaminophen (Percocet 7.5/ 325) 1 tab PRN Q4HRS PRN PO PAIN Last administered on 03/23/17 14:59; Start 03/16/17 at 13:15 Morphine Sulfate 4 mg PRN Q2HR PRN IV PAIN Last administered on 03/18/17 14:11 ; Start 03/16/17 at 13:15 Enoxaparin Sodium (Lovenox 40mg Syringe) 40 mg Q12HR SQ Last administered on 08:47; Start 03/16/17 at 21:00; Stop 03/20/17 at 16:57; Status DC Iohexol (Omnipaque 300 Mg/ml) 75 ml 1X ONCE IV Last administered on 03/17/17 08:00; Start 03/17/17 at 08:00; Stop 03/17/17 at 08:01; Status DC Iohexol (Omnipaque 240 Mg/ml) 50 ml 1X ONCE PO Last administered on 03/17/17 08:00; Start 03/17/17 at 08:00; Stop 03/17/17 at 08:01; Status DC Info (Do NOT chart on this entry -- for MONITORING) 1 each PRN DAILY PRN MC SEE COMMENTS; Start 03/17/17 at 07:45; Stop 03/19/17 at 07:44; Status DC Sodium Chloride 1,000 ml @ 1,000 mls/hr 1X ONCE IV Last administered on 08:00; Start 03/17/17 at 08:00; Stop 03/17/17 at 08:59; Status DC Vancomycin HCl (Vanco Per Pharmacy) 1 each PRN DAILY PRN MC SEE COMMENTS Last administered on 03/18/17 14:24; Start 03/17/17 at 08:00; Stop 03/19/17 at 11:10 ; Status DC Fluconazole/ Sodium Chloride 200 ml @ 100 mls/hr Q24H IV Last administered on 03/21/17 08:07; Start 03/17/17 at 09:00; Stop 03/21/17 at 09:24; Status DC Vancomycin HCl 2 gm/Sodium Chloride 500 ml @ 250 mls/hr 1X ONCE IV Last administered on 03/17/17 13:08; Start 03/17/17 at 09:00; Stop 03/17/17 at 10:59 ; Status DC Acetaminophen (Tylenol) 650 mg PRN Q6HRS PRN PO FEVER Last administered on 16:34; Start 03/17/17 at 08:15 Vancomycin HCl 2 gm/Sodium Chloride 500 ml @ 250 mls/hr Q8H IV Last administered on 03/19/17 05:41; Start 03/17/17 at 22:00; Stop 03/19/17 at 11:10 ; Status DC Vancomycin HCl 1 each 1X ONCE MC ; Start 03/18/17 at 13:30; Stop 03/18/17 at 13 :31; Status DC Calcium Carbonate/ Glycine (Tums) 1,000 mg PRN Q4HRS PRN PO INDIGESTION Last administered on 03/17/17 23:57; Start 03/17/17 at 23:45 Potassium Chloride (Klor-Con) 40 meq 1X ONCE PO Last administered on 14:14; Start 03/18/17 at 12:45; Stop 03/18/17 at 12:46; Status DC Vancomycin HCl 1 each 1X ONCE MC ; Start 03/19/17 at 13:30; Stop 03/19/17 at 13 :30; Status DC Sodium Chloride 1,000 ml @ 1,000 mls/hr 1X ONCE IV Last administered on 14:28; Start 03/19/17 at 12:15; Stop 03/19/17 at 13:14; Status DC Pantoprazole Sodium (Protonix) 40 mg BIDAC PO Last administered on 03/25/17 08:31; Start 03/20/17 at 16:30 Simethicone (Gas-X) 80 mg PRN AFTMEALHC PRN PO GAS / BLOATING Last administered on 03/22/17 08:55; Start 03/20/17 at 11:15 Al Hydroxide/Mg Hydroxide (Mylanta Plus Xs) 30 ml PRN Q2HR PRN PO HEARTBURN / GAS; Start 03/20/17 at 11:15 Enoxaparin Sodium (Lovenox 40mg Syringe) 40 mg DAILY SQ Last administered on 08:09; Start 03/21/17 at 09:00; Stop 03/22/17 at 12:42; Status DC Fluconazole/ Sodium Chloride 100 ml @ 100 mls/hr Q24H IV ; Start 03/22/17 at 09:00; Stop 03/22/17 at 09:00; Status DC Piperacillin Sod/ Tazobactam Sod 3.375 gm/Sodium Chloride 50 ml @ 100 mls/hr Q12HR IV ; Start 03/21/17 at 21:00; Stop 03/21/17 at 21:00; Status DC Fluconazole/ Sodium Chloride 100 ml @ 100 mls/hr Q24H IV Last administered on 03/22/17 09:30; Start 03/22/17 at 09:00; Stop 03/23/17 at 10:05; Status DC Piperacillin Sod/ Tazobactam Sod 2.25 gm/Sodium Chloride 50 ml @ 100 mls/hr Q6HRS IV Last administered on 03/23/17 05:58; Start 03/21/17 at 12:00; Stop 03/23/17 at 10:05; Status DC Ondansetron HCl (Zofran) 8 mg PRN Q8HRS PRN IV NAUESA, 1ST CHOICE Last administered on 03/25/17 06:17; Start 03/22/17 at 09:15 Prochlorperazine Edisylate (Compazine) 10 mg PRN Q8HRS PRN IV NAUSEA/VOMITING - 2nd choice Last administered on 03/24/17 16:28; Start 03/22/17 at 09:15 Amino Acids/ Glycerin/ Electrolytes 1,000 ml @ 80 mls/hr [id number] IV Last administered on 03/25/17 06:43; Start 03/22/17 at 11:45 Heparin Sodium (Porcine) (Heparin Sq) 5,000 unit Q8HRS SQ Last administered on 03/25/17 06:07; Start 03/22/17 at 14:00 Loperamide HCl (Imodium) 2 mg PRN Q15MIN PRN PO DIARRHEA; Start 03/23/17 at 08 :00 Amoxicillin/ Clavulanate Potassium (Augmentin 500/ 125mg) 1 tab BID PO Last administered on 03/25/17 08:31; Start 03/23/17 at 10:30 Promethazine HCl (Phenergan) 25 mg PRN Q6HRS PRN [place] NAUSEA/VOMITING; Start 05/28 at 15:15 Furosemide (Lasix) 80 mg 1X ONCE IVP Last administered on 03/24/17 12:13; Start 03/24/17 at 11:30; Stop 03/24/17 at 11:31; Status DC Active Scripts Active Reported Multivitamins (Multivitamin) 1 Each Tablet 1 Tab PO DAILY Omeprazole 20 Mg Capsule. 1 Cap PO DAILY Vitals/I & O Vital Sign - Last 24 Hours 03/24/17 03/24/17 03/24/17 03/24/17 11:00 15:00 19:00 20:00 Temp 98.3 98.7 98.1 98.3 98.7 98.1 Pulse 72 77 74 Resp 18 18 24 B/P (MAP) 128/89 (102) 131/88 (102) 145/104 (118) Pulse Ox 93 96 96 O2 Delivery Room Air Room Air Room Air Room Air 03/24/17 03/25/17 03/25/17 23:00 03:00 07:00 Temp 98.6 98.1 97.9 98.6 98.1 97.9 Pulse 79 87 80 Resp 18 18 20 B/P (MAP) 136/94 (108) 142/93 (109) 130/82 (98) Pulse Ox 95 92 94 O2 Delivery Room Air Room Air Room Air ADI WRAY MD Mar 25, 2017 08:44
[2017-03-25] MEDS ORDERED: IOHEXOL 240 MG/ML 50ML VIAL. PO ONE ×2 (09:30→12:30)
[2017-03-25] MEDS: PROCHLORPERAZINE 10 MG/2 ML VIAL. IV PRN (10:23)
[2017-03-25] MEDS ORDERED: MIDAZOLAM HCL/PF 5 MG/5 ML VIAL. ONE (12:00)
[2017-03-25] MEDS ORDERED: VECURONIUM BOLUS 10 MG VIAL. IV ONE (12:00)
--- NOTE | 2017-03-25 12:31 | PDOC ---
SURGICAL PROGRESS NOTE Subjective persistent nausea just back from CT Vital Signs Vital Signs Date Time Temp Pulse Resp B/P (MAP) Pulse Ox O2 Delivery O2 Flow Rate FiO2 03/25/17 11:00 97.5 87 20 133/90 (104) 92 Room Air 97.5 I&O Intake and Output 03/26/17 07:00 Output Total 675 ml Balance -675 ml Output Urine Total 675 ml General: Alert, Oriented X3, Cooperative, No acute distress Abdomen: Soft Labs Laboratory Tests Test 03/24/17 06:20 03/25/17 06:05 Sodium Level 145 mmol/L (136-145) 145 mmol/L (136-145) Potassium Level 3.6 mmol/L (3.5-5.1) 3.8 mmol/L (3.5-5.1) Chloride Level 109 mmol/L (98-107) 107 mmol/L (98-107) Carbon Dioxide Level 26 mmol/L (21-32) 28 mmol/L (21-32) Anion Gap 10 (6-14) 10 (6-14) Blood Urea Nitrogen 28 mg/dL (7-20) 29 mg/dL (7-20) Creatinine 6.4 mg/dL (0.6-1.0) 6.1 mg/dL (0.6-1.0) Estimated GFR (Cockcroft-Gault) 7.8 8.2 Glucose Level 93 mg/dL (70-99) 96 mg/dL (70-99) Calcium Level 8.7 mg/dL (8.5-10.1) 9.0 mg/dL (8.5-10.1) Phosphorus Level 4.2 mg/dL (2.6-4.7) 4.5 mg/dL (2.6-4.7) Albumin 1.7 g/dL (3.4-5.0) 1.8 g/dL (3.4-5.0) Laboratory Tests Test 03/25/17 06:05 Sodium Level 145 mmol/L (136-145) Potassium Level 3.8 mmol/L (3.5-5.1) Chloride Level 107 mmol/L (98-107) Carbon Dioxide Level 28 mmol/L (21-32) Anion Gap 10 (6-14) Blood Urea Nitrogen 29 mg/dL (7-20) Creatinine 6.1 mg/dL (0.6-1.0) Estimated GFR (Cockcroft-Gault) 8.2 Glucose Level 96 mg/dL (70-99) Calcium Level 9.0 mg/dL (8.5-10.1) Phosphorus Level 4.5 mg/dL (2.6-4.7) Albumin 1.8 g/dL (3.4-5.0) Assessment/Plan ARF as per neph nausea, CT pending--may need to consider GI consult for workup Problems: JORGE DEVI APRN Mar 25, 2017 12:31
--- NOTE | 2017-03-25 13:35 | RAD ---
CT study of the abdomen and pelvis without IV contrast Clinical indications: Persistent nausea. Recent gastric sleeve surgery. Comparison: March 17, 2017. Technique: Non-IV contrast helical CT scanning of the abdomen and pelvis was performed. Without IV contrast, the sensitivity to detect organ pathology is decreased. GI contrast was administered per mouth. PQRS Compliance Statement: One or more of the following individualized dose reduction techniques were utilized for this examination: 1. Automated exposure control 2. Adjustment of the mA and/or kV according to patient size 3. Use of iterative reconstruction technique Findings: The liver and spleen and pancreas are homogeneous in appearance on this noncontrast study. The gallbladder is surgically absent. No extrahepatic biliary ductal dilatation is seen. No adrenal mass is evident. The urinary bladder is decompressed due to an indwelling Mcclendon catheter. No hydronephrosis or hydroureter or urinary tract stone is evident. No adrenal mass is seen. No focal aneurysmal dilatation of the abdominal aorta is seen. No enlarged abdominal or pelvic lymphadenopathy is seen. Again seen is a small amount of fluid within the cul-de-sac which is unchanged in appearance and amount. The inflammatory changes of the right lower quadrant of the abdomen with free bubbles of air is improving. No abscess is seen here. No bowel obstruction is evident. Postoperative changes of the stomach are seen. No free air is seen. Bibasilar atelectasis is seen. Small amount of pleural effusion is seen posteriorly on the right. No osteolytic process is seen. IMPRESSION: Resolving inflammatory change and free bubbles of air within the right lower quadrant. No new fluid collection or abscess is seen here. Stable small fluid collection within the cul-de-sac.
--- NOTE | 2017-03-25 14:06 | PDOC ---
Infectious Disease Note Subjective Subjective Found patient unresponsive to verbal and tactile stimuli. Breathing heavy with some foam at the mouth. Rapid response called. Oxygen saturations initially above 96% then dropped, O2 applied. Intubated for airway protection and sent to ICU + seizure activity reported No fever ROS ROS Unobtainable Vital Sign Vital Signs Vital Signs Date Time Temp Pulse Resp B/P (MAP) Pulse Ox O2 Delivery O2 Flow Rate FiO2 03/25/17 11:00 97.5 87 20 133/90 (104) 92 Room Air 97.5 Physical Exam PHYSICAL EXAM GENERAL: Unresponsive to verbal and tactile stimuli. In ICU intubated HEENT: Pupils equal LUNGS: Clear HEART: S1 and S2 ABD: Soft EXT: No edema, no cyanosis BULB GROWER: Unresponsive SKIN: No rash. IV: ok Labs Lab Laboratory Tests Test 03/25/17 06:05 Sodium Level 145 mmol/L (136-145) Potassium Level 3.8 mmol/L (3.5-5.1) Chloride Level 107 mmol/L (98-107) Carbon Dioxide Level 28 mmol/L (21-32) Anion Gap 10 (6-14) Blood Urea Nitrogen 29 mg/dL (7-20) Creatinine 6.1 mg/dL (0.6-1.0) Estimated GFR (Cockcroft-Gault) 8.2 Glucose Level 96 mg/dL (70-99) Calcium Level 9.0 mg/dL (8.5-10.1) Phosphorus Level 4.5 mg/dL (2.6-4.7) Albumin 1.8 g/dL (3.4-5.0) CT abd/pelvis IMPRESSION: Resolving inflammatory change and free bubbles of air within the right lower quadrant. No new fluid collection or abscess is seen here. Objective Assessment Appendicitis s/p appendectomy 03/15. CT abd reviewed 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 s/p Dexamethasone 03/15 vs reactive EMILY Acute encephalopathy, Seizure - s/p vomit Acute Reps failure Plan Plan of Care Change abx to Zosyn to cover for possible aspiration Consult Pulm D/c Augmentin Check CK with ? seizure F/u CT head BHANU PERDOMO APRN Mar 25, 2017 14:06 GENE FRAZIER MD Mar 25, 2017 14:11
[2017-03-25 14:11] LABS: BASO # 0.4 x10^3/uL (0.0-0.2); BASO % 2 % (0-3); EOS % 1 % (0-3); HEMATOCRIT 37.2 % (36.0-47.0); HEMOGLOBIN 12.3 g/dL (12.0-15.5); LYMPH # 5.9 x10^3/uL (1.0-4.8); LYMPH % 27 % (24-48); MEAN CORPUSCULAR HEMOGLOBIN 30 pg (25-35); MEAN CORPUSCULAR HGB CONC 33 g/dL (31-37); MEAN CORPUSCULAR VOLUME 90 fL (79-100); MONO % 6 % (0-9); NEUT % 64 % (31-73); PLATELET COUNT 539 x10^3/uL (140-400); RED BLOOD COUNT 4.16 x10^6/uL (3.50-5.40); RED CELL DISTRIBUTION WIDTH 15.7 % (11.5-14.5); WHITE BLOOD COUNT 21.6 x10^3/uL (4.0-11.0)
--- NOTE | 2017-03-25 14:17 | RAD ---
Clinical indications: Postintubation. Altered mental status. Technique: Noncontrast axial cross sectional scanning of the head was performed. PQRS Compliance Statement: One or more of the following individualized dose reduction techniques were utilized for this examination: 1. Automated exposure control 2. Adjustment of the mA and/or kV according to patient size 3. Use of iterative reconstruction technique Comparison: None available. Findings: No acute intracranial hemorrhage or midline shift or mass-effect or hydrocephalus or extra-axial fluid collection is seen. Normal robertson and white matter differentiation is seen. No focal hypodense area or sulci effacement is seen to indicate an acute infarct or edema radiographically. No skull fracture or pneumocephalus is seen. No opacification of the mastoid sinuses or the paranasal sinuses is seen. Impression: No acute intracranial abnormality is seen.
[2017-03-25 14:19] LABS: CALCIUM 9.7 mg/dL (8.5-10.1); CREATININE 6.3 mg/dL (0.6-1.0); GFR 7.9; POTASSIUM 3.9 mmol/L (3.5-5.1)
[2017-03-25 14:25] LABS: ALBUMIN 2.3 g/dL (3.4-5.0); ALBUMIN/GLOBULIN RATIO 0.5 (1.0-1.7); TOTAL BILIRUBIN 0.3 mg/dL (0.2-1.0); TOTAL PROTEIN 7.2 g/dL (6.4-8.2)
--- NOTE | 2017-03-25 14:27 | PDOC ---
Provider Note Provider Note [id number] acute resp fail sz khurram s/p appendectomy cont vent support neuro consulted cont abx ROSA CEE MD Mar 25, 2017 14:27
[2017-03-25] MEDS ORDERED: DIGOXIN IV 500 MCG/2 ML AMPUL. IV ONE (14:30)
--- NOTE | 2017-03-25 14:33 | PDOC2 ---
CONSULT Date of Consult Date of Consult DATE: 03/25/17 TIME: 14:27 Reason for Consult Reason for Consult: Respiratory arrest Referring Physician Referring Physician: Dr Benavides Identification/Chief Complaint Chief Complaint Acute appendicitis Problems: History of Present Illness Reason for Visit: This patient is a 26-year-old lady that came in with an acute appendicitis she has had some renal problems and difficulties in the postoperative period. Today the nurse found her unresponsive and in an apparent seizure and vomiting. There was some blood in the mouth suggestive of the patient having bitten her tongue. The patient then had a very rough breathing and essentially stopped breathing. I was in the room by that time and the patient was emergently intubated. She is unresponsive at this point and unable to help with a history. The patient was then transferred downstairs to get a CT of the head and go straight to ICU. Past Medical History GI: GERD Past Surgical History Past Surgical History: Other (gastric sleeve last month, lost 30 lbs since) Family History Family History: No Significant Social History No ALCOHOL: none Current Medications Current Medications Current Medications Dexamethasone Sodium Phosphate (Decadron) 20 mg STK-MED ONCE .ROUTE ; Start 03/15/17 at 14:06; Stop 03/15/17 at 14:07; Status DC Ondansetron HCl (Zofran) 4 mg STK-MED ONCE .ROUTE ; Start 03/15/17 at 14:06; Stop 03/15/17 at 14:07; Status DC Propofol 20 ml @ As Directed STK-MED ONCE IV ; Start 03/15/17 at 14:06; Stop at 14:07; Status DC Lidocaine HCl (Lidocaine Pf 2% Vial) 5 ml STK-MED ONCE .ROUTE ; Start 03/15/17 at 14:06; Stop 03/15/17 at 14:07; Status DC Midazolam HCl (Versed) 2 mg STK-MED ONCE .ROUTE ; Start 03/15/17 at 14:06; Stop 03/15/17 at 14:07; Status DC Fentanyl Citrate (Fentanyl 2ml Vial) 100 mcg STK-MED ONCE .ROUTE ; Start at 14:06; Stop 03/15/17 at 14:07; Status DC Rocuronium [place] (Zemuron) 100 mg STK-MED ONCE .ROUTE ; Start 03/15/17 at 14: 07; Stop 03/15/17 at 14:08; Status DC Succinylcholine Chloride (Anectine) 200 mg STK-MED ONCE .ROUTE ; Start 03/15/17 at 14:07; Stop 03/15/17 at 14:08; Status DC Bupivacaine HCl/ Epinephrine Bitart (Marcaine-Epi 0.5%-1:[id number]) 50 ml STK-MED ONCE .ROUTE Last administered on 03/15/17 14:54; Start 03/15/17 at 13:07; Stop 03/15/17 at 14:08; Status DC Cefoxitin Sodium 2 gm/Sodium Chloride 100 ml @ 200 mls/hr 1X PREOP IV Last administered on 03/15/17 14:55; Start 03/15/17 at 16:00; Stop 03/16/17 at 14:41 ; Status DC Sodium Chloride 1,000 ml @ 125 mls/hr 1X ONCE IV Last administered on 14:15; Start 03/15/17 at 14:15; Stop 03/15/17 at 22:14; Status DC Cefoxitin Sodium 100 ml @ As Directed STK-MED ONCE IV ; Start 03/15/17 at 14:53 ; Stop 03/15/17 at 14:54; Status DC Enoxaparin Sodium (Lovenox 40mg Syringe) 40 mg Q24H SQ ; Start 03/15/17 at 15:30 ; Stop 03/16/17 at 14:38; Status DC Sodium Chloride (Normal Saline Flush) 3 ml QSHIFT PRN IV AFTER MEDS AND BLOOD DRAWS; Start 03/15/17 at 15:30 Ringer's Solution 1,000 ml @ 125 mls/hr Q8H IV Last administered on 23:40; Start 03/15/17 at 15:19 Acetaminophen/ Hydrocodone Bitart (Lortab 5/325) 1 tab PRN Q4HRS PRN PO MILD PAIN Last administered on 03/16/17 02:56; Start 03/15/17 at 15:30; Stop at 13:05; Status DC Ketorolac Tromethamine (Toradol) 15 mg PRN Q6HRS PRN IV PAIN; Start 03/15/17 at 15:30; Stop 03/16/17 at 09:05; Status DC Morphine Sulfate 2 mg PRN Q1HR PRN IV PAIN Last administered on 03/22/17 09: 36; Start 03/15/17 at 15:30 Docusate Sodium (Colace) 100 mg BID PO Last administered on 03/17/17 13:04; Start 03/15/17 at 21:00 Ondansetron HCl (Zofran) 4 mg PRN Q6HRS PRN IV NAUESA, 1ST CHOICE Last administered on 03/22/17 06:34; Start 03/15/17 at 15:30; Stop 03/22/17 at 09: 09; Status DC Piperacillin Sod/ Tazobactam Sod 3.375 gm/Sodium Chloride 50 ml @ 100 mls/hr Q6HRS IV Last administered on 03/21/17 06:20; Start 03/15/17 at 18:00; Stop 03/21/17 at 09:24; Status DC Morphine Sulfate 10 mg STK-MED ONCE .ROUTE ; Start 03/15/17 at 15:32; Stop 03/15 at 15:33; Status DC Ringer's Solution 1,000 ml @ 125 mls/hr Q8H IV Last administered on 03/16/17 00:51; Start 03/15/17 at 15:42; Stop 03/16/17 at 03:41; Status DC Lidocaine HCl (Xylocaine-Mpf 1% Vial) 0.5 ml 1X PRN PRN INJ IV START; Start at 15:45; Stop 03/16/17 at 15:44; Status DC Ringer's Solution 1,000 ml @ 125 mls/hr Q8H IV ; Start 03/15/17 at 15:42; Stop 03/15/17 at 21:41; Status DC Fentanyl Citrate (Fentanyl 2ml Vial) 25 mcg PRN Q5MIN PRN IV Acute Pain; Start 03/15/17 at 15:45; Stop 03/16/17 at 09:05; Status DC Fentanyl Citrate (Fentanyl 2ml Vial) 50 mcg PRN Q5MIN PRN IV Acute Pain Last administered on 03/15/17 15:58; Start 03/15/17 at 15:45; Stop 03/16/17 at 09:05 ; Status DC Morphine Sulfate 2 mg PRN Q10MIN PRN IV Mild Pain; Start 03/15/17 at 15:45; Stop 03/16/17 at 09:05; Status DC Morphine Sulfate 4 mg PRN Q10MIN PRN IV Moderate Pain; Start 03/15/17 at 15:45 ; Stop 03/16/17 at 09:05; Status DC Ondansetron HCl (Zofran) 4 mg PRN Q6HRS PRN IV Nausea, 1st Choice; Start at 15:45; Stop 03/16/17 at 09:05; Status DC Metoclopramide HCl (Reglan) 10 mg PRN Q6HRS PRN IV Nausea/Vomiting, 2nd Choice Last administered on 03/15/17t 18:49; Start 03/15/17 at 15:45; Stop 03/16/17 at 15:44; Status DC Diphenhydramine HCl (Benadryl) 12.5 mg PRN Q2HR PRN IV ITCHING; Start 03/15/17 at 15:45; Stop 03/16/17 at 15:44; Status DC Albuterol Sulfate (Ventolin Neb Soln) 2.5 mg PRN 1X PRN NEB Shortness of Breath , Wheezing; Start 03/15/17 at 15:45; Stop 03/16/17 at 15:44; Status DC Dexamethasone Sodium Phosphate (Decadron) 8 mg 1X PRN PRN IV 3RD CHOICE FOR NAUSEA; Start 03/15/17 at 15:45; Stop 03/16/17 at 15:44; Status DC Meperidine HCl (Demerol) 10 mg 1X PERIOP PRN IV SHIVERING; Start 03/15/17 at 15 :45; Stop 03/16/17 at 15:44; Status DC Meperidine HCl (Demerol) 15 mg 1X PERIOP PRN IV SHIVERING; Start 03/15/17 at 15 :45; Stop 03/16/17 at 15:44; Status DC Prochlorperazine Edisylate (Compazine) 10 mg STK-MED ONCE .ROUTE ; Start at 15:48; Stop 03/15/17 at 15:49; Status DC Prochlorperazine Maleate (Compazine) 5 mg 1X PACU PRN PO NAUSEA/VOMITING; Start 03/15/17 at 16:00; Stop 03/19/17 at 19:03; Status DC Hydromorphone HCl (Dilaudid) 0.5 mg PRN Q10MIN PRN IV PAIN Last administered on 03/15/17 16:52; Start 03/15/17 at 16:15; Stop 03/16/17 at 09:05; Status DC Acetaminophen/ Hydrocodone Bitart (Lortab 5/325) 2 tab PRN Q4HRS PRN PO PAIN Last administered on 03/16/17 10:16; Start 03/16/17 at 09:15; Stop 03/16/17 at 13:05; Status DC Multivitamins (Thera M Plus) 1 tab DAILY PO Last administered on 03/25/17 08: 31; Start 03/16/17 at 13:00 Pantoprazole Sodium (Protonix) 40 mg DAILYAC PO Last administered on 03/20/17 08:48; Start 03/16/17 at 13:00; Stop 03/20/17 at 11:14; Status DC Oxycodone/ Acetaminophen (Percocet 7.5/ 325) 1 tab PRN Q4HRS PRN PO PAIN Last administered on 03/23/17 14:59; Start 03/16/17 at 13:15 Morphine Sulfate 4 mg PRN Q2HR PRN IV PAIN Last administered on 03/18/17 14:11 ; Start 03/16/17 at 13:15 Enoxaparin Sodium (Lovenox 40mg Syringe) 40 mg Q12HR SQ Last administered on 08:47; Start 03/16/17 at 21:00; Stop 03/20/17 at 16:57; Status DC Iohexol (Omnipaque 300 Mg/ml) 75 ml 1X ONCE IV Last administered on 03/17/17 08:00; Start 03/17/17 at 08:00; Stop 03/17/17 at 08:01; Status DC Iohexol (Omnipaque 240 Mg/ml) 50 ml 1X ONCE PO Last administered on 03/17/17 08:00; Start 03/17/17 at 08:00; Stop 03/17/17 at 08:01; Status DC Info (Do NOT chart on this entry -- for MONITORING) 1 each PRN DAILY PRN MC SEE COMMENTS; Start 03/17/17 at 07:45; Stop 03/19/17 at 07:44; Status DC Sodium Chloride 1,000 ml @ 1,000 mls/hr 1X ONCE IV Last administered on 08:00; Start 03/17/17 at 08:00; Stop 03/17/17 at 08:59; Status DC Vancomycin HCl (Vanco Per Pharmacy) 1 each PRN DAILY PRN MC SEE COMMENTS Last administered on 03/18/17 14:24; Start 03/17/17 at 08:00; Stop 03/19/17 at 11:10 ; Status DC Fluconazole/ Sodium Chloride 200 ml @ 100 mls/hr Q24H IV Last administered on 03/21/17 08:07; Start 03/17/17 at 09:00; Stop 03/21/17 at 09:24; Status DC Vancomycin HCl 2 gm/Sodium Chloride 500 ml @ 250 mls/hr 1X ONCE IV Last administered on 03/17/17 13:08; Start 03/17/17 at 09:00; Stop 03/17/17 at 10:59 ; Status DC Acetaminophen (Tylenol) 650 mg PRN Q6HRS PRN PO FEVER Last administered on 16:34; Start 03/17/17 at 08:15 Vancomycin HCl 2 gm/Sodium Chloride 500 ml @ 250 mls/hr Q8H IV Last administered on 03/19/17 05:41; Start 03/17/17 at 22:00; Stop 03/19/17 at 11:10 ; Status DC Vancomycin HCl 1 each 1X ONCE MC ; Start 03/18/17 at 13:30; Stop 03/18/17 at 13 :31; Status DC Calcium Carbonate/ Glycine (Tums) 1,000 mg PRN Q4HRS PRN PO INDIGESTION Last administered on 03/17/17 23:57; Start 03/17/17 at 23:45 Potassium Chloride (Klor-Con) 40 meq 1X ONCE PO Last administered on 14:14; Start 03/18/17 at 12:45; Stop 03/18/17 at 12:46; Status DC Vancomycin HCl 1 each 1X ONCE MC ; Start 03/19/17 at 13:30; Stop 03/19/17 at 13 :30; Status DC Sodium Chloride 1,000 ml @ 1,000 mls/hr 1X ONCE IV Last administered on 14:28; Start 03/19/17 at 12:15; Stop 03/19/17 at 13:14; Status DC Pantoprazole Sodium (Protonix) 40 mg BIDAC PO Last administered on 03/25/17 08:31; Start 03/20/17 at 16:30 Simethicone (Gas-X) 80 mg PRN AFTMEALHC PRN PO GAS / BLOATING Last administered on 03/22/17 08:55; Start 03/20/17 at 11:15 Al Hydroxide/Mg Hydroxide (Mylanta Plus Xs) 30 ml PRN Q2HR PRN PO HEARTBURN / GAS; Start 03/20/17 at 11:15 Enoxaparin Sodium (Lovenox 40mg Syringe) 40 mg DAILY SQ Last administered on 08:09; Start 03/21/17 at 09:00; Stop 03/22/17 at 12:42; Status DC Fluconazole/ Sodium Chloride 100 ml @ 100 mls/hr Q24H IV ; Start 03/22/17 at 09:00; Stop 03/22/17 at 09:00; Status DC Piperacillin Sod/ Tazobactam Sod 3.375 gm/Sodium Chloride 50 ml @ 100 mls/hr Q12HR IV ; Start 03/21/17 at 21:00; Stop 03/21/17 at 21:00; Status DC Fluconazole/ Sodium Chloride 100 ml @ 100 mls/hr Q24H IV Last administered on 03/22/17 09:30; Start 03/22/17 at 09:00; Stop 03/23/17 at 10:05; Status DC Piperacillin Sod/ Tazobactam Sod 2.25 gm/Sodium Chloride 50 ml @ 100 mls/hr Q6HRS IV Last administered on 03/23/17 05:58; Start 03/21/17 at 12:00; Stop 03/23/17 at 10:05; Status DC Ondansetron HCl (Zofran) 8 mg PRN Q8HRS PRN IV NAUESA, 1ST CHOICE Last administered on 03/25/17 06:17; Start 03/22/17 at 09:15 Prochlorperazine Edisylate (Compazine) 10 mg PRN Q8HRS PRN IV NAUSEA/VOMITING - 2nd choice Last administered on 03/25/17 10:23; Start 03/22/17 at 09:15 Amino Acids/ Glycerin/ Electrolytes 1,000 ml @ 80 mls/hr [id number] IV Last administered on 03/25/17 06:43; Start 03/22/17 at 11:45 Heparin Sodium (Porcine) (Heparin Sq) 5,000 unit Q8HRS SQ Last administered on 03/25/17 06:07; Start 03/22/17 at 14:00; Stop 03/25/17 at 08:45; Status DC Loperamide HCl (Imodium) 2 mg PRN Q15MIN PRN PO DIARRHEA; Start 03/23/17 at 08 :00 Amoxicillin/ Clavulanate Potassium (Augmentin 500/ 125mg) 1 tab BID PO Last administered on 03/25/17 08:31; Start 03/23/17 at 10:30; Stop 03/25/17 at 14 :03; Status DC Promethazine HCl (Phenergan) 25 mg PRN Q6HRS PRN MD NAUSEA/VOMITING; Start 05/28 at 15:15 Furosemide (Lasix) 80 mg 1X ONCE IVP Last administered on 03/24/17 12:13; Start 03/24/17 at 11:30; Stop 03/24/17 at 11:31; Status DC Iohexol (Omnipaque 240 Mg/ml) 50 ml 1X ONCE PO Last administered on 09:30; Start 03/25/17 at 09:30; Stop 03/25/17 at 09:31; Status DC Iohexol (Omnipaque 240 Mg/ml) 50 ml 1X ONCE PO Last administered on 12:32; Start 03/25/17 at 12:30; Stop 03/25/17 at 12:31; Status DC Lorazepam (Ativan) 1 mg 1X ONCE IV Last administered on 03/25/17 13:40; Start 03/25/17 at 14:00; Stop 03/25/17 at 14:01; Status DC Piperacillin Sod/ Tazobactam Sod 2.25 gm/Sodium Chloride 50 ml @ 100 mls/hr Q8HRS IV ; Start 03/25/17 at 15:00 Levetiracetam 500 mg/Sodium Chloride 100 ml @ 400 mls/hr Q12HR IV ; Start at 15:00; Stop 03/25/17 at 15:00; Status DC Lorazepam (Ativan) 2 mg PRN Q1HR PRN IV SEIZURE; Start 03/25/17 at 14:15 Levetiracetam 750 mg/Sodium Chloride 107.5 ml @ 400 mls/hr Q12HR IV ; Start at 15:00 Digoxin (Lanoxin) 500 mcg 1X ONCE IV ; Start 03/25/17 at 14:30; Stop at 14:31 Norepinephrine Bitartrate 250 ml @ 0 mls/hr CONT PRN IV SEE I/O RECORD; Start 03/25/17 at 14:30 Active Scripts Active Reported Multivitamins (Multivitamin) 1 Each Tablet 1 Tab PO DAILY Omeprazole 20 Mg Capsule.dr 1 Cap PO DAILY Allergies Allergies: Coded Allergies: NSAIDS (Non-Steroidal Anti-Inflamma (Verified Allergy, Severe, 03/23/17) PATIENT STATES THAT SHE CANNOT HAVE NSAIDS SINCE HER GASTRIC SLEEVE THAT COMPLETED 02/2017 Physical Exam General: severe distress HEENT: Other (pupils are responsive) Lungs: Other (the patient is intubated and being bagged with diffuse coarse breath sounds) Heart: Other (tachycardic with a rate of about 120. On the monitor she is in sinus tach S1-S2 no murmur) Abdomen: Other (abdomen is rather protuberant but soft bowel sounds are present ) Extremities: No edema Psych/Mental Status: Other (patient intubated and unresponsive at this point. She appears to be posturing) Vitals VITALS Vital Signs Date Time Temp Pulse Resp B/P (MAP) Pulse Ox O2 Delivery O2 Flow Rate FiO2 03/25/17 11:00 97.5 87 20 133/90 (104) 92 Room Air 97.5 Labs Labs Laboratory Tests Test 03/24/17 06:20 03/25/17 06:05 03/25/17 13:30 Sodium Level 145 mmol/L (136-145) 145 mmol/L (136-145) 146 mmol/L (136-145) Potassium Level 3.6 mmol/L (3.5-5.1) 3.8 mmol/L (3.5-5.1) 3.9 mmol/L (3.5-5.1) Chloride Level 109 mmol/L (98-107) 107 mmol/L (98-107) 106 mmol/L (98-107) Carbon Dioxide Level 26 mmol/L (21-32) 28 mmol/L (21-32) 25 mmol/L (21-32) Anion Gap 10 (6-14) 10 (6-14) 15 (6-14) Blood Urea Nitrogen 28 mg/dL (7-20) 29 mg/dL (7-20) 30 mg/dL (7-20) Creatinine 6.4 mg/dL (0.6-1.0) 6.1 mg/dL (0.6-1.0) 6.3 mg/dL (0.6-1.0) Estimated GFR (Cockcroft-Gault) 7.8 8.2 7.9 Glucose Level 93 mg/dL (70-99) 96 mg/dL (70-99) 145 mg/dL (70-99) Calcium Level 8.7 mg/dL (8.5-10.1) 9.0 mg/dL (8.5-10.1) 9.7 mg/dL (8.5-10.1) Phosphorus Level 4.2 mg/dL (2.6-4.7) 4.5 mg/dL (2.6-4.7) Albumin 1.7 g/dL (3.4-5.0) 1.8 g/dL (3.4-5.0) White Blood Count 21.6 x10^3/uL (4.0-11.0) Red Blood Count 4.16 x10^6/uL (3.50-5.40) Hemoglobin 12.3 g/dL (12.0-15.5) Hematocrit 37.2 % (36.0-47.0) Mean Corpuscular Volume 90 fL (79-100) Mean Corpuscular Hemoglobin 30 pg (25-35) Mean Corpuscular Hemoglobin Concent 33 g/dL (31-37) Red Cell Distribution Width 15.7 % (11.5-14.5) Platelet Count 539 x10^3/uL (140-400) Neutrophils (%) (Auto) 64 % (31-73) Lymphocytes (%) (Auto) 27 % (24-48) Monocytes (%) (Auto) 6 % (0-9) Eosinophils (%) (Auto) 1 % (0-3) Basophils (%) (Auto) 2 % (0-3) Neutrophils # (Auto) 13.8 x10^3uL (1.8-7.7) Lymphocytes # (Auto) 5.9 x10^3/uL (1.0-4.8) Monocytes # (Auto) 1.3 x10^3/uL (0.0-1.1) Eosinophils # (Auto) 0.3 x10^3/uL (0.0-0.7) Basophils # (Auto) 0.4 x10^3/uL (0.0-0.2) BUN/Creatinine Ratio 5 (6-20) Laboratory Tests Test 03/25/17 06:05 03/25/17 13:30 Sodium Level 145 mmol/L (136-145) 146 mmol/L (136-145) Potassium Level 3.8 mmol/L (3.5-5.1) 3.9 mmol/L (3.5-5.1) Chloride Level 107 mmol/L (98-107) 106 mmol/L (98-107) Carbon Dioxide Level 28 mmol/L (21-32) 25 mmol/L (21-32) Anion Gap 10 (6-14) 15 (6-14) Blood Urea Nitrogen 29 mg/dL (7-20) 30 mg/dL (7-20) Creatinine 6.1 mg/dL (0.6-1.0) 6.3 mg/dL (0.6-1.0) Estimated GFR (Cockcroft-Gault) 8.2 7.9 Glucose Level 96 mg/dL (70-99) 145 mg/dL (70-99) Calcium Level 9.0 mg/dL (8.5-10.1) 9.7 mg/dL (8.5-10.1) Phosphorus Level 4.5 mg/dL (2.6-4.7) Albumin 1.8 g/dL (3.4-5.0) White Blood Count 21.6 x10^3/uL (4.0-11.0) Red Blood Count 4.16 x10^6/uL (3.50-5.40) Hemoglobin 12.3 g/dL (12.0-15.5) Hematocrit 37.2 % (36.0-47.0) Mean Corpuscular Volume 90 fL (79-100) Mean Corpuscular Hemoglobin 30 pg (25-35) Mean Corpuscular Hemoglobin Concent 33 g/dL (31-37) Red Cell Distribution Width 15.7 % (11.5-14.5) Platelet Count 539 x10^3/uL (140-400) Neutrophils (%) (Auto) 64 % (31-73) Lymphocytes (%) (Auto) 27 % (24-48) Monocytes (%) (Auto) 6 % (0-9) Eosinophils (%) (Auto) 1 % (0-3) Basophils (%) (Auto) 2 % (0-3) Neutrophils # (Auto) 13.8 x10^3uL (1.8-7.7) Lymphocytes # (Auto) 5.9 x10^3/uL (1.0-4.8) Monocytes # (Auto) 1.3 x10^3/uL (0.0-1.1) Eosinophils # (Auto) 0.3 x10^3/uL (0.0-0.7) Basophils # (Auto) 0.4 x10^3/uL (0.0-0.2) BUN/Creatinine Ratio 5 (6-20) Assessment/Plan Assessment/Plan Patient status post acute respiratory arrest with possible aspiration following a seizure episode. Presently her blood pressure is normal and she is tachycardic. Will give her fluids and follow her in the ICU. I would suggest a pulmonary and a neurology consult. Thank you very much for asking me to participate in the care of this patient DANN ROQUE MD Mar 25, 2017 14:33
--- NOTE | 2017-03-25 14:51 | RAD ---
Portable AP views of the chest 1414 Clinical indications: Postintubation and NG tube placement. Comparison: None available. Findings: ET tube is in place and the tip is located 2 cm above the level of the karin. NG tube is in place and the tube is seen extending to at least the proximal body of the stomach. Right upper extremity PICC line is in place and the tip is seen within the mid superior vena cava. No pneumothorax is seen. Left lung base infiltrate or atelectasis is present. Small left-sided pleural effusion is seen. Right lung field is clear. The heart size is prominent some of which is due to AP magnification. The mediastinum and pulmonary vasculature and both harry are unremarkable. IMPRESSION: Left lung base infiltrate or atelectasis in association with a small left-sided pleural effusion.
[2017-03-25 14:56] LABS: % EOS 1 % (0-5)
[2017-03-25 14:57] LABS: ANISOCYTOSIS SLIGHT; PLT ESTIMATE INCREASED (ADEQUATE)
--- NOTE | 2017-03-25 14:57 | CONS ---
DATE OF CONSULTATION: 03/25/2017 I was asked to see this 26-year-old lady emergently for respiratory failure. The patient is intubated and is not able to give me any information. All of the information was obtained from chart and nursing staff. She was admitted with perforated appendicitis and underwent exploratory laparotomy and appendectomy. She had gastric sleeve surgery last month. She was found to have decrease in urination after CT with contrast. Her creatinine is 6.1 today. It is nonoliguric acute kidney injury. The patient was found to have seizure with frothy secretion coming out of her mouth. She became unresponsive. She vomited. She had difficulty breathing, so she was intubated. She is currently intubated and in ICU. She is tachycardic. She received vecuronium for intubation. She had a CT of abdomen done with oral contrast earlier yesterday. She has had nausea and vomiting for the past few days. A CT of head is done and Neurology is consulted. Currently, she is not responsive, she is tachycardic. PAST MEDICAL HISTORY: Status post gastric sleeve surgery last month, gastroesophageal reflux disease, status post laparoscopic appendectomy on March 15. ALLERGIES: No known drug allergies. MEDICATIONS: Currently she is on IV fluid, Ringer's lactate, Zosyn, Protonix. SOCIAL HISTORY: Does not smoke per chart. FAMILY HISTORY: Diabetes mellitus. REVIEW OF SYSTEMS: As mentioned as above. I have discussed the patient with RN and RT. Other systems are otherwise negative. PHYSICAL EXAMINATION: GENERAL: This is an obese lady. VITAL SIGNS: Her O2 saturation is 100%, FiO2 is 100%, respiratory rate 20, heart rate 180, blood pressure 136/68. HEENT: Normocephalic, atraumatic. Pupils equal, round, reactive to light. Nose is clear. She is orally intubated. NECK: There is no JVD, lymphadenopathy or thyromegaly. CARDIOVASCULAR: Tachycardic. CHEST: Inspection is normal. LUNGS: Coarse breath sounds. ABDOMEN: Soft, obese. EXTREMITIES: There is trace edema. LYMPHATICS: There is no lymphadenopathy. NEUROLOGIC: She is intubated and not responsive. SKIN: Warm. I reviewed the following lab data. Her chest x-ray after intubation showed the ET tube is in right main stem bronchus. It was pulled out and it is now about 2 cm above karin. og is also in good position. On March 22, WBC 8.9, hemoglobin 10.6, platelet 220. Today sodium, 145, potassium 2.8, chloride 107, CO2 of 28, glucose 96, BUN 29, creatinine 6.1. CT of abdomen showed resolving inflammatory changes and free bubbles of air within the right lower quadrant. No fluid collection or abscess noted. CT of head is pending. Chest x-ray as mentioned as above. IMPRESSION: 1. Acute respiratory failure secondary to seizure, cannot rule out aspiration, although chest x-ray does not show any infiltrate at this point. 2. Seizure? etiology. 3. Appendicitis status post appendectomy on March 15. 4. Gastric sleeve surgery in February 2017. 5. Acute kidney injury. 6. Encephalopathy. 7. Obesity, probable obstructive sleep apnea-hypopnea syndrome. 8. Gastroesophageal reflux disease. PLAN AND RECOMMENDATIONS: 1. Continue ventilator support. Ventilator setting was reviewed. Titrate FiO2 to keep O2 saturation 94%. I will do ABG and change vent setting per ABG. 2. Neurology is consulted. 3. Elevate head of bed. 4. IV fluids. 5. Continue antibiotic. 6. Monitor respiratory status very closely. 7. Continue Protonix. 8. Follow up CT of the head. Neurology is consulted. 9. A.m. ABG and portable chest x-ray. 10. she will started on hd per nephrology. The findings and recommendations were discussed with RN and RT. Thank you very much for allowing me to participate in care of this very nice lady. The patient is critically ill. This is critical care time 35 minutes without overlap. ROSA CEE M.D. : Emilia JOB#: [id number] / [id number] JUAN J
[2017-03-25] MEDS ORDERED: IV NORMAL SALINE 1000ML BAG 1,000 ML IV ONE (15:00)
[2017-03-25 15:19] LABS: HCO3 ABG 16 mmol/L (21-28); PCO2 ABG 36 mmHg (35-46); PH ABG 7.26 (7.35-7.45); PO2 ABG 74 mmHg (85-108); SAT O2 ABG 91 % (92-99)
[2017-03-25 15:22] LABS: FIO2 ABG 100
--- NOTE | 2017-03-25 15:25 | PDOC2 ---
NEUROLOGY CONSULT Date of Admission Date of Admission DATE: 03/25/17 TIME: 15:06 Reason for Consult Reason for Consult: IMPRESSION: Coded, in coma. Seizures, new onset, provoked. Metabolic encephalopathy. Acute respiratory failure. Acute renal failure. Leukocytosis. Acute appendicitis s/p appendectomy. Hypoalbuminemia. DM. Obesity. RECOMMENDATIONS/PLAN: Ativan 2 mg IV PRN seizure. Keppra 750 mg IV q12h. If still has seizures, add Vimpat 100 mg IV q12h. Lab: see orders. Brain MRI wo contrast when stable. No contrast due to renal failure. Consulted Nephrology for dialysis. Consulted Cardiology. Treat medical and surgical diseases. LAWRENCE w/o contrast on 03/25/17: No acute findings. HISTORY OF THE PRESENT ILLNESS: 26-y-old female patient had abdominal pain to come to [facility]. She was found to have appendicitis and was treated surgically as appendectomy. She had seizures and coma and was coded. Neurology was called for consultation due to seizures. No history of seizure. She also has acute renal failure that may provoke seizures as well. 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 Gastroesophageal reflux disease. Status post laparoscopic appendectomy on March 15. ALLERGIES: No known drug allergies. MEDICATIONS: Refer to [facility]. SOCIAL HISTORY: Does not smoke. FAMILY HISTORY: Diabetes mellitus. REVIEW OF SYSTEMS: Constitutional: Obesity. Head: No recent traumatic brain or head injury. Skin: No edema, or rash. Ear: No infection, tinnitus. Eyes: No vision loss or color blindness. Nose: No bleeding or purulent discharges. Hearing: No hearing decrease. Neck: No injury. Breast: No history of cancer, masses,or discharges. Cardiac: No [place], arrhythmia. Pulmonary: No COPD. GI: GERD. Urinary/genital: UTI. Endocrinologic: Obesity. Skeletomuscular: No muscular atrophy, deformity. Neurological: see HP. Psychiatric: Denies drug use/abuse. Otherwise, not [id number] review of systems. PHYSICAL EXAMINATION: General appearance is in coma. HEENT: Normocephalic and nontraumatic. Eyes, nose, ears, and throat are unremarkable. Neck is supple. No lymphadenopathy. No crepitus. Cardiovascular: S1, S2, regular rate and rhythm. Pulmonary: Breath sounds to auscultation bilaterally. Abdomen: Bowel sounds are weak. Extremities: No rash, lesions, or edema. No restriction of range of motion NEUROLOGICAL EXAMINATION: Unresponsiveness. Not oriented to time, place and person. Pupils 4-5 mm, slow reaction to light stimulation. EOMI not elicited. CN: no focal findings. Muscle tone: decreased. Muscle strength: no movements at this time. DTR: 0-1 Plantar reflex: No response bilaterally Gait: Unable to walk. Sensory exam: no response to stimuli. Not able to access cerebellar signs this time. F-T-N test not performed due to unresponsiveness. Current Medications Current Medications Current Medications Dexamethasone Sodium Phosphate (Decadron) 20 mg STK-MED ONCE .ROUTE ; Start 03/15/17 at 14:06; Stop 03/15/17 at 14:07; Status DC Ondansetron HCl (Zofran) 4 mg STK-MED ONCE .ROUTE ; Start 03/15/17 at 14:06; Stop 03/15/17 at 14:07; Status DC Propofol 20 ml @ As Directed STK-MED ONCE IV ; Start 03/15/17 at 14:06; Stop at 14:07; Status DC Lidocaine HCl (Lidocaine Pf 2% Vial) 5 ml STK-MED ONCE .ROUTE ; Start 03/15/17 at 14:06; Stop 03/15/17 at 14:07; Status DC Midazolam HCl (Versed) 2 mg STK-MED ONCE .ROUTE ; Start 03/15/17 at 14:06; Stop 03/15/17 at 14:07; Status DC Fentanyl Citrate (Fentanyl 2ml Vial) 100 mcg STK-MED ONCE .ROUTE ; Start at 14:06; Stop 03/15/17 at 14:07; Status DC Rocuronium Lawtey (Zemuron) 100 mg STK-MED ONCE .ROUTE ; Start 03/15/17 at 14: 07; Stop 03/15/17 at 14:08; Status DC Succinylcholine Chloride (Anectine) 200 mg STK-MED ONCE .ROUTE ; Start 03/15/17 at 14:07; Stop 03/15/17 at 14:08; Status DC Bupivacaine HCl/ Epinephrine Bitart (Marcaine-Epi 0.5%-[id number]) 50 ml STK-MED ONCE .ROUTE Last administered on 03/15/17t 14:54; Start 03/15/17 at 13:07; Stop 03/15/17 at 14:08; Status DC Cefoxitin Sodium 2 gm/Sodium Chloride 100 ml @ 200 mls/hr 1X PREOP IV Last administered on 03/15/17 14:55; Start 03/15/17 at 16:00; Stop 03/16/17 at 14:41 ; Status DC Sodium Chloride 1,000 ml @ 125 mls/hr 1X ONCE IV Last administered on 14:15; Start 03/15/17 at 14:15; Stop 03/15/17 at 22:14; Status DC Cefoxitin Sodium 100 ml @ As Directed STK-MED ONCE IV ; Start 03/15/17 at 14:53 ; Stop 03/15/17 at 14:54; Status DC Enoxaparin Sodium (Lovenox 40mg Syringe) 40 mg Q24H SQ ; Start 03/15/17 at 15:30 ; Stop 03/16/17 at 14:38; Status DC Sodium Chloride (Normal Saline Flush) 3 ml QSHIFT PRN IV AFTER MEDS AND BLOOD DRAWS; Start 03/15/17 at 15:30 Ringer's Solution 1,000 ml @ 125 mls/hr Q8H IV Last administered on 23:40; Start 03/15/17 at 15:19 Acetaminophen/ Hydrocodone Bitart (Lortab 5/325) 1 tab PRN Q4HRS PRN PO MILD PAIN Last administered on 03/16/17 02:56; Start 03/15/17 at 15:30; Stop at 13:05; Status DC Ketorolac Tromethamine (Toradol) 15 mg PRN Q6HRS PRN IV PAIN; Start 03/15/17 at 15:30; Stop 03/16/17 at 09:05; Status DC Morphine Sulfate 2 mg PRN Q1HR PRN IV PAIN Last administered on 03/22/17 09: 36; Start 03/15/17 at 15:30 Docusate Sodium (Colace) 100 mg BID PO Last administered on 03/17/17 13:04; Start 03/15/17 at 21:00 Ondansetron HCl (Zofran) 4 mg PRN Q6HRS PRN IV NAUESA, 1ST CHOICE Last administered on 03/22/17 06:34; Start 03/15/17 at 15:30; Stop 03/22/17 at 09: 09; Status DC Piperacillin Sod/ Tazobactam Sod 3.375 gm/Sodium Chloride 50 ml @ 100 mls/hr Q6HRS IV Last administered on 03/21/17 06:20; Start 03/15/17 at 18:00; Stop 03/21/17 at 09:24; Status DC Morphine Sulfate 10 mg STK-MED ONCE .ROUTE ; Start 03/15/17 at 15:32; Stop 03/15 at 15:33; Status DC Ringer's Solution 1,000 ml @ 125 mls/hr Q8H IV Last administered on 03/16/17 00:51; Start 03/15/17 at 15:42; Stop 03/16/17 at 03:41; Status DC Lidocaine HCl (Xylocaine-Mpf 1% Vial) 0.5 ml 1X PRN PRN INJ IV START; Start at 15:45; Stop 03/16/17 at 15:44; Status DC Ringer's Solution 1,000 ml @ 125 mls/hr Q8H IV ; Start 03/15/17 at 15:42; Stop 03/15/17 at 21:41; Status DC Fentanyl Citrate (Fentanyl 2ml Vial) 25 mcg PRN Q5MIN PRN IV Acute Pain; Start 03/15/17 at 15:45; Stop 03/16/17 at 09:05; Status DC Fentanyl Citrate (Fentanyl 2ml Vial) 50 mcg PRN Q5MIN PRN IV Acute Pain Last administered on 03/15/17 15:58; Start 03/15/17 at 15:45; Stop 03/16/17 at 09:05 ; Status DC Morphine Sulfate 2 mg PRN Q10MIN PRN IV Mild Pain; Start 03/15/17 at 15:45; Stop 03/16/17 at 09:05; Status DC Morphine Sulfate 4 mg PRN Q10MIN PRN IV Moderate Pain; Start 03/15/17 at 15:45 ; Stop 03/16/17 at 09:05; Status DC Ondansetron HCl (Zofran) 4 mg PRN Q6HRS PRN IV Nausea, 1st Choice; Start at 15:45; Stop 03/16/17 at 09:05; Status DC Metoclopramide HCl (Reglan) 10 mg PRN Q6HRS PRN IV Nausea/Vomiting, 2nd Choice Last administered on 03/15/17 18:49; Start 03/15/17 at 15:45; Stop 03/16/17 at 15:44; Status DC Diphenhydramine HCl (Benadryl) 12.5 mg PRN Q2HR PRN IV ITCHING; Start 03/15/17 at 15:45; Stop 03/16/17 at 15:44; Status DC Albuterol Sulfate (Ventolin Neb Soln) 2.5 mg PRN 1X PRN NEB Shortness of Breath , Wheezing; Start 03/15/17 at 15:45; Stop 03/16/17 at 15:44; Status DC Dexamethasone Sodium Phosphate (Decadron) 8 mg 1X PRN PRN IV 3RD CHOICE FOR NAUSEA; Start 03/15/17 at 15:45; Stop 03/16/17 at 15:44; Status DC Meperidine HCl (Demerol) 10 mg 1X PERIOP PRN IV SHIVERING; Start 03/15/17 at 15 :45; Stop 03/16/17 at 15:44; Status DC Meperidine HCl (Demerol) 15 mg 1X PERIOP PRN IV SHIVERING; Start 03/15/17 at 15 :45; Stop 03/16/17 at 15:44; Status DC Prochlorperazine Edisylate (Compazine) 10 mg STK-MED ONCE .ROUTE ; Start at 15:48; Stop 03/15/17 at 15:49; Status DC Prochlorperazine Maleate (Compazine) 5 mg 1X PACU PRN PO NAUSEA/VOMITING; Start 03/15/17 at 16:00; Stop 03/19/17 at 19:03; Status DC Hydromorphone HCl (Dilaudid) 0.5 mg PRN Q10MIN PRN IV PAIN Last administered on 03/15/17 16:52; Start 03/15/17 at 16:15; Stop 03/16/17 at 09:05; Status DC Acetaminophen/ Hydrocodone Bitart (Lortab 5/325) 2 tab PRN Q4HRS PRN PO PAIN Last administered on 03/16/17 10:16; Start 03/16/17 at 09:15; Stop 03/16/17 at 13:05; Status DC Multivitamins (Thera M Plus) 1 tab DAILY PO Last administered on 03/25/17 08: 31; Start 03/16/17 at 13:00 Pantoprazole Sodium (Protonix) 40 mg DAILYAC PO Last administered on 03/20/17 08:48; Start 03/16/17 at 13:00; Stop 03/20/17 at 11:14; Status DC Oxycodone/ Acetaminophen (Percocet 7.5/ 325) 1 tab PRN Q4HRS PRN PO PAIN Last administered on 03/23/17 14:59; Start 03/16/17 at 13:15 Morphine Sulfate 4 mg PRN Q2HR PRN IV PAIN Last administered on 03/18/17 14:11 ; Start 03/16/17 at 13:15 Enoxaparin Sodium (Lovenox 40mg Syringe) 40 mg Q12HR SQ Last administered on 08:47; Start 03/16/17 at 21:00; Stop 03/20/17 at 16:57; Status DC Iohexol (Omnipaque 300 Mg/ml) 75 ml 1X ONCE IV Last administered on 03/17/17 08:00; Start 03/17/17 at 08:00; Stop 03/17/17 at 08:01; Status DC Iohexol (Omnipaque 240 Mg/ml) 50 ml 1X ONCE PO Last administered on 03/17/17 08:00; Start 03/17/17 at 08:00; Stop 03/17/17 at 08:01; Status DC Info (Do NOT chart on this entry -- for MONITORING) 1 each PRN DAILY PRN MC SEE COMMENTS; Start 03/17/17 at 07:45; Stop 03/19/17 at 07:44; Status DC Sodium Chloride 1,000 ml @ 1,000 mls/hr 1X ONCE IV Last administered on 08:00; Start 03/17/17 at 08:00; Stop 03/17/17 at 08:59; Status DC Vancomycin HCl (Vanco Per Pharmacy) 1 each PRN DAILY PRN MC SEE COMMENTS Last administered on 03/18/17 14:24; Start 03/17/17 at 08:00; Stop 03/19/17 at 11:10 ; Status DC Fluconazole/ Sodium Chloride 200 ml @ 100 mls/hr Q24H IV Last administered on 03/21/17 08:07; Start 03/17/17 at 09:00; Stop 03/21/17 at 09:24; Status DC Vancomycin HCl 2 gm/Sodium Chloride 500 ml @ 250 mls/hr 1X ONCE IV Last administered on 03/17/17 13:08; Start 03/17/17 at 09:00; Stop 03/17/17 at 10:59 ; Status DC Acetaminophen (Tylenol) 650 mg PRN Q6HRS PRN PO FEVER Last administered on 16:34; Start 03/17/17 at 08:15 Vancomycin HCl 2 gm/Sodium Chloride 500 ml @ 250 mls/hr Q8H IV Last administered on 03/19/17 05:41; Start 03/17/17 at 22:00; Stop 03/19/17 at 11:10 ; Status DC Vancomycin HCl 1 each 1X ONCE MC ; Start 03/18/17 at 13:30; Stop 03/18/17 at 13 :31; Status DC Calcium Carbonate/ Glycine (Tums) 1,000 mg PRN Q4HRS PRN PO INDIGESTION Last administered on 03/17/17 23:57; Start 03/17/17 at 23:45 Potassium Chloride (Klor-Con) 40 meq 1X ONCE PO Last administered on 14:14; Start 03/18/17 at 12:45; Stop 03/18/17 at 12:46; Status DC Vancomycin HCl 1 each 1X ONCE MC ; Start 03/19/17 at 13:30; Stop 03/19/17 at 13 :30; Status DC Sodium Chloride 1,000 ml @ 1,000 mls/hr 1X ONCE IV Last administered on 14:28; Start 03/19/17 at 12:15; Stop 03/19/17 at 13:14; Status DC Pantoprazole Sodium (Protonix) 40 mg BIDAC PO Last administered on 03/25/17 08:31; Start 03/20/17 at 16:30 Simethicone (Gas-X) 80 mg PRN AFTMEALHC PRN PO GAS / BLOATING Last administered on 03/22/17 08:55; Start 03/20/17 at 11:15 Al Hydroxide/Mg Hydroxide (Mylanta Plus Xs) 30 ml PRN Q2HR PRN PO HEARTBURN / GAS; Start 03/20/17 at 11:15 Enoxaparin Sodium (Lovenox 40mg Syringe) 40 mg DAILY SQ Last administered on 08:09; Start 03/21/17 at 09:00; Stop 03/22/17 at 12:42; Status DC Fluconazole/ Sodium Chloride 100 ml @ 100 mls/hr Q24H IV ; Start 03/22/17 at 09:00; Stop 03/22/17 at 09:00; Status DC Piperacillin Sod/ Tazobactam Sod 3.375 gm/Sodium Chloride 50 ml @ 100 mls/hr Q12HR IV ; Start 03/21/17 at 21:00; Stop 03/21/17 at 21:00; Status DC Fluconazole/ Sodium Chloride 100 ml @ 100 mls/hr Q24H IV Last administered on 03/22/17 09:30; Start 03/22/17 at 09:00; Stop 03/23/17 at 10:05; Status DC Piperacillin Sod/ Tazobactam Sod 2.25 gm/Sodium Chloride 50 ml @ 100 mls/hr Q6HRS IV Last administered on 03/23/17 05:58; Start 03/21/17 at 12:00; Stop 03/23/17 at 10:05; Status DC Ondansetron HCl (Zofran) 8 mg PRN Q8HRS PRN IV NAUESA, 1ST CHOICE Last administered on 03/25/17 06:17; Start 03/22/17 at 09:15 Prochlorperazine Edisylate (Compazine) 10 mg PRN Q8HRS PRN IV NAUSEA/VOMITING - 2nd choice Last administered on 03/25/17 10:23; Start 03/22/17 at 09:15 Amino Acids/ Glycerin/ Electrolytes 1,000 ml @ 80 mls/hr [id number] IV Last administered on 03/25/17 06:43; Start 03/22/17 at 11:45 Heparin Sodium (Porcine) (Heparin Sq) 5,000 unit Q8HRS SQ Last administered on 03/25/17 06:07; Start 03/22/17 at 14:00; Stop 03/25/17 at 08:45; Status DC Loperamide HCl (Imodium) 2 mg PRN Q15MIN PRN PO DIARRHEA; Start 03/23/17 at 08 :00 Amoxicillin/ Clavulanate Potassium (Augmentin 500/ 125mg) 1 tab BID PO Last administered on 03/25/17 08:31; Start 03/23/17 at 10:30; Stop 03/25/17 at 14 :03; Status DC Promethazine HCl (Phenergan) 25 mg PRN Q6HRS PRN AL NAUSEA/VOMITING; Start 05/28 at 15:15 Furosemide (Lasix) 80 mg 1X ONCE IVP Last administered on 03/24/17 12:13; Start 03/24/17 at 11:30; Stop 03/24/17 at 11:31; Status DC Iohexol (Omnipaque 240 Mg/ml) 50 ml 1X ONCE PO Last administered on 09:30; Start 03/25/17 at 09:30; Stop 03/25/17 at 09:31; Status DC Iohexol (Omnipaque 240 Mg/ml) 50 ml 1X ONCE PO Last administered on 12:32; Start 03/25/17 at 12:30; Stop 03/25/17 at 12:31; Status DC Lorazepam (Ativan) 1 mg 1X ONCE IV Last administered on 03/25/17 13:40; Start 03/25/17 at 14:00; Stop 03/25/17 at 14:01; Status DC Piperacillin Sod/ Tazobactam Sod 2.25 gm/Sodium Chloride 50 ml @ 100 mls/hr Q8HRS IV ; Start 03/25/17 at 15:00 Levetiracetam 500 mg/Sodium Chloride 100 ml @ 400 mls/hr Q12HR IV ; Start at 15:00; Stop 03/25/17 at 15:00; Status DC Lorazepam (Ativan) 2 mg PRN Q1HR PRN IV SEIZURE Last administered on 14:30; Start 03/25/17 at 14:15 Levetiracetam 750 mg/Sodium Chloride 107.5 ml @ 400 mls/hr Q12HR IV ; Start at 15:00 Digoxin (Lanoxin) 500 mcg 1X ONCE IV Last administered on 03/25/17t 14:34; Start 03/25/17 at 14:30; Stop 03/25/17 at 14:31; Status DC Norepinephrine Bitartrate 250 ml @ 0 mls/hr CONT PRN IV SEE I/O RECORD; Start 03/25/17 at 14:30 Sodium Chloride 1,000 ml @ 1,000 mls/hr 1X ONCE IV ; Start 03/25/17 at 15:00 ; Stop 03/25/17 at 15:59 Active Scripts Active Reported Multivitamins (Multivitamin) 1 Each Tablet 1 Tab PO DAILY Omeprazole 20 Mg Capsule. 1 Cap PO DAILY Allergies Allergies: Coded Allergies: NSAIDS (Non-Steroidal Anti-Inflamma (Verified Allergy, Severe, 03/23/17) PATIENT STATES THAT SHE CANNOT HAVE NSAIDS SINCE HER GASTRIC SLEEVE THAT COMPLETED 02/2017 Vitals VITALS Vital Signs Date Time Temp Pulse Resp B/P (MAP) Pulse Ox O2 Delivery O2 Flow Rate FiO2 03/25/17 14:34 180 90/62 03/25/17 11:00 97.5 20 92 Room Air 97.5 Labs Labs Laboratory Tests Test 03/24/17 06:20 03/25/17 06:05 03/25/17 13:30 Sodium Level 145 mmol/L (136-145) 145 mmol/L (136-145) 146 mmol/L (136-145) Potassium Level 3.6 mmol/L (3.5-5.1) 3.8 mmol/L (3.5-5.1) 3.9 mmol/L (3.5-5.1) Chloride Level 109 mmol/L (98-107) 107 mmol/L (98-107) 106 mmol/L (98-107) Carbon Dioxide Level 26 mmol/L (21-32) 28 mmol/L (21-32) 25 mmol/L (21-32) Anion Gap 10 (6-14) 10 (6-14) 15 (6-14) Blood Urea Nitrogen 28 mg/dL (7-20) 29 mg/dL (7-20) 30 mg/dL (7-20) Creatinine 6.4 mg/dL (0.6-1.0) 6.1 mg/dL (0.6-1.0) 6.3 mg/dL (0.6-1.0) Estimated GFR (Cockcroft-Gault) 7.8 8.2 7.9 Glucose Level 93 mg/dL (70-99) 96 mg/dL (70-99) 145 mg/dL (70-99) Calcium Level 8.7 mg/dL (8.5-10.1) 9.0 mg/dL (8.5-10.1) 9.7 mg/dL (8.5-10.1) Phosphorus Level 4.2 mg/dL (2.6-4.7) 4.5 mg/dL (2.6-4.7) Albumin 1.7 g/dL (3.4-5.0) 1.8 g/dL (3.4-5.0) 2.3 g/dL (3.4-5.0) White Blood Count 21.6 x10^3/uL (4.0-11.0) Red Blood Count 4.16 x10^6/uL (3.50-5.40) Hemoglobin 12.3 g/dL (12.0-15.5) Hematocrit 37.2 % (36.0-47.0) Mean Corpuscular Volume 90 fL (79-100) Mean Corpuscular Hemoglobin 30 pg (25-35) Mean Corpuscular Hemoglobin Concent 33 g/dL (31-37) Red Cell Distribution Width 15.7 % (11.5-14.5) Platelet Count 539 x10^3/uL (140-400) Neutrophils (%) (Auto) 64 % (31-73) Lymphocytes (%) (Auto) 27 % (24-48) Monocytes (%) (Auto) 6 % (0-9) Eosinophils (%) (Auto) 1 % (0-3) Basophils (%) (Auto) 2 % (0-3) Neutrophils # (Auto) 13.8 x10^3uL (1.8-7.7) Lymphocytes # (Auto) 5.9 x10^3/uL (1.0-4.8) Monocytes # (Auto) 1.3 x10^3/uL (0.0-1.1) Eosinophils # (Auto) 0.3 x10^3/uL (0.0-0.7) Basophils # (Auto) 0.4 x10^3/uL (0.0-0.2) Segmented Neutrophils % 61 % (35-66) Band Neutrophils % 4 % (0-9) Lymphocytes % 26 % (24-48) Atypical Lymphocytes % (Manual) 5 % (0-0) Monocytes % 3 % (0-10) Eosinophils % 1 % (0-5) Platelet Estimate Increased (ADEQUATE) Giant Platelets Few Anisocytosis Slight BUN/Creatinine Ratio 5 (6-20) Total Bilirubin 0.3 mg/dL (0.2-1.0) Aspartate Amino Transf (AST/SGOT) 17 U/L (15-37) Alanine Aminotransferase (ALT/SGPT) 20 U/L (14-59) Alkaline Phosphatase 67 U/L (46-116) Creatine Kinase 26 U/L (26-192) Total Protein 7.2 g/dL (6.4-8.2) Albumin/Globulin Ratio 0.5 (1.0-1.7) Laboratory Tests Test 03/25/17 06:05 03/25/17 13:30 Sodium Level 145 mmol/L (136-145) 146 mmol/L (136-145) Potassium Level 3.8 mmol/L (3.5-5.1) 3.9 mmol/L (3.5-5.1) Chloride Level 107 mmol/L (98-107) 106 mmol/L (98-107) Carbon Dioxide Level 28 mmol/L (21-32) 25 mmol/L (21-32) Anion Gap 10 (6-14) 15 (6-14) Blood Urea Nitrogen 29 mg/dL (7-20) 30 mg/dL (7-20) Creatinine 6.1 mg/dL (0.6-1.0) 6.3 mg/dL (0.6-1.0) Estimated GFR (Cockcroft-Gault) 8.2 7.9 Glucose Level 96 mg/dL (70-99) 145 mg/dL (70-99) Calcium Level 9.0 mg/dL (8.5-10.1) 9.7 mg/dL (8.5-10.1) Phosphorus Level 4.5 mg/dL (2.6-4.7) Albumin 1.8 g/dL (3.4-5.0) 2.3 g/dL (3.4-5.0) White Blood Count 21.6 x10^3/uL (4.0-11.0) Red Blood Count 4.16 x10^6/uL (3.50-5.40) Hemoglobin 12.3 g/dL (12.0-15.5) Hematocrit 37.2 % (36.0-47.0) Mean Corpuscular Volume 90 fL (79-100) Mean Corpuscular Hemoglobin 30 pg (25-35) Mean Corpuscular Hemoglobin Concent 33 g/dL (31-37) Red Cell Distribution Width 15.7 % (11.5-14.5) Platelet Count 539 x10^3/uL (140-400) Neutrophils (%) (Auto) 64 % (31-73) Lymphocytes (%) (Auto) 27 % (24-48) Monocytes (%) (Auto) 6 % (0-9) Eosinophils (%) (Auto) 1 % (0-3) Basophils (%) (Auto) 2 % (0-3) Neutrophils # (Auto) 13.8 x10^3uL (1.8-7.7) Lymphocytes # (Auto) 5.9 x10^3/uL (1.0-4.8) Monocytes # (Auto) 1.3 x10^3/uL (0.0-1.1) Eosinophils # (Auto) 0.3 x10^3/uL (0.0-0.7) Basophils # (Auto) 0.4 x10^3/uL (0.0-0.2) Segmented Neutrophils % 61 % (35-66) Band Neutrophils % 4 % (0-9) Lymphocytes % 26 % (24-48) Atypical Lymphocytes % (Manual) 5 % (0-0) Monocytes % 3 % (0-10) Eosinophils % 1 % (0-5) Platelet Estimate Increased (ADEQUATE) Giant Platelets Few Anisocytosis Slight BUN/Creatinine Ratio 5 (6-20) Total Bilirubin 0.3 mg/dL (0.2-1.0) Aspartate Amino Transf (AST/SGOT) 17 U/L (15-37) Alanine Aminotransferase (ALT/SGPT) 20 U/L (14-59) Alkaline Phosphatase 67 U/L (46-116) Creatine Kinase 26 U/L (26-192) Total Protein 7.2 g/dL (6.4-8.2) Albumin/Globulin Ratio 0.5 (1.0-1.7) EMILY BENEDICT MD Mar 25, 2017 15:25
[2017-03-25] MEDS ORDERED: PROPOFOL 100 ML IV ONE (15:28)
[2017-03-25] MEDS: PIPERACILLIN/TAZOBACTAM 2.25 GM in IV NORMAL SALINE 50ML 50 ML IV SCH ×2 (15:38→21:53)
[2017-03-25] MEDS: NOREPINEPHRIN PREMIX 250 ML IV PRN ×2 (15:46→21:53)
[2017-03-25] MEDS: PROPOFOL 100 ML IV PRN ×2 (15:47→20:06)
[2017-03-25] MEDS ORDERED: SODIUM BICARB ADULT 8.4% 50 MEQ/50 ML DISP.SYRIN. IV ONE (16:00)
[2017-03-25] MEDS ORDERED: MIDAZOLAM HCL/PF 5 MG/5 ML VIAL. IV ONE (16:00)
[2017-03-25] MEDS ORDERED: ADENOSINE 6 MG/2 ML VIAL. IV ONE ×2 (16:00→16:15)
[2017-03-25] MEDS ORDERED: 0.9 % SODIUM CHLORIDE 10 ML DISP.SYRIN. IV PRN ×2 (16:30)
[2017-03-25] MEDS ORDERED: DIALYSIS PATIENT. MC PRN ×2 (16:30)
[2017-03-25] MEDS ORDERED: IV NORMAL SALINE 1000ML BAG 1,000 ML IV PRN ×2 (16:30)
[2017-03-25] MEDS: IV RINGERS,LACTATED 1000ML 1,000 ML IV SCH (16:33)
[2017-03-25 17:39] LABS: BARBITURATES NEG (NEG); BENZODIAZEPINES POS (NEG); CANNABINOIDS NEG (NEG); COCAINE NEG (NEG); METHADONE NEG (NEG); OPIATES NEG (NEG); PHENCYCLIDINE NEG (NEG)
[2017-03-25] MEDS ORDERED: ACETAMINOPHEN 650 MG/20.3 ML SOLUTION. PEG PRN (18:30)
[2017-03-25] MEDS: PANTOPRAZOLE IV PUSH 40 MG VIAL. IVP SCH (21:24)
[2017-03-25 22:21] LABS: FIO2 ABG 90; HCO3 ABG 25 mmol/L (21-28); PCO2 ABG 36 mmHg (35-46); PH ABG 7.46 (7.35-7.45); PO2 ABG 128 mmHg (85-108); SAT O2 ABG 98 % (92-99)
[2017-03-26] VITALS (30 sets, daily range): BP systolic 90–129; BP diastolic 57–88
[2017-03-26] MEDS: IV RINGERS,LACTATED 1000ML 1,000 ML IV SCH ×4 (01:16→21:12)
[2017-03-26] MEDS: PROPOFOL 100 ML IV PRN ×5 (02:11→22:39)
[2017-03-26] MEDS: AMINO AC 3%/ELECTROLYTE/GLYCER 1,000 ML IV SCH ×2 (04:13→17:58)
[2017-03-26] MEDS: PIPERACILLIN/TAZOBACTAM 2.25 GM in IV NORMAL SALINE 50ML 50 ML IV SCH ×3 (06:26→21:12)
[2017-03-26 06:46] LABS: ALBUMIN 1.8 g/dL (3.4-5.0); CREATININE 4.6 mg/dL (0.6-1.0); GFR 11.3; PHOSPHORUS 3.9 mg/dL (2.6-4.7); POTASSIUM 3.9 mmol/L (3.5-5.1)
[2017-03-26] MEDS: PANTOPRAZOLE IV PUSH 40 MG VIAL. IVP SCH ×2 (07:41→21:12)
[2017-03-26] MEDS: MULTIVITAMIN with MINERAL TABLET. PO SCH (07:42)
[2017-03-26] MEDS: DOCUSATE SODIUM 100 MG CAPSULE. PO SCH ×2 (07:42→21:00)
[2017-03-26] MEDS ORDERED: IV NORMAL SALINE 1000ML BAG 1,000 ML IV PRN ×2 (08:46)
--- NOTE | 2017-03-26 08:59 | PDOC ---
Infectious Disease Note Subjective Subjective Sedated, some response earlier per RN Intubated - FiO2 40% No fever Hypotensive, on Levophed 15 mcg Now on dialysis + loose stools PPN ROS ROS Vital Sign Vital Signs Vital Signs Date Time Temp Pulse Resp B/P (MAP) Pulse Ox O2 Delivery O2 Flow Rate FiO2 03/26/17 08:02 80 97/77 (84) 03/26/17 08:00 17 100 Ventilator 03/26/17 07:00 99.1 99.1 03/25/17 08:00 2.0 Physical Exam PHYSICAL EXAM GENERAL: Intubated and sedated HEENT: ROSA ISELA. ETT. OGT LUNGS: Clear HEART: S1 and S2, regular ABD: Obese, soft, BS active EXT: Generalized trace edema, no cyanosis [employer]: Unresponsive/sedated SKIN: No rash. Left femoral Trialysis: Left femoral art line Labs Lab Laboratory Tests Test 03/25/17 13:29 03/25/17 13:30 03/25/17 13:42 03/25/17 17:00 Glucose (Fingerstick) 133 mg/dL (70-99) White Blood Count 21.6 x10^3/uL (4.0-11.0) Red Blood Count 4.16 x10^6/uL (3.50-5.40) Hemoglobin 12.3 g/dL (12.0-15.5) Hematocrit 37.2 % (36.0-47.0) Mean Corpuscular Volume 90 fL (79-100) Mean Corpuscular Hemoglobin 30 pg (25-35) Mean Corpuscular Hemoglobin Concent 33 g/dL (31-37) Red Cell Distribution Width 15.7 % (11.5-14.5) Platelet Count 539 x10^3/uL (140-400) Neutrophils (%) (Auto) 64 % (31-73) Lymphocytes (%) (Auto) 27 % (24-48) Monocytes (%) (Auto) 6 % (0-9) Eosinophils (%) (Auto) 1 % (0-3) Basophils (%) (Auto) 2 % (0-3) Neutrophils # (Auto) 13.8 x10^3uL (1.8-7.7) Lymphocytes # (Auto) 5.9 x10^3/uL (1.0-4.8) Monocytes # (Auto) 1.3 x10^3/uL (0.0-1.1) Eosinophils # (Auto) 0.3 x10^3/uL (0.0-0.7) Basophils # (Auto) 0.4 x10^3/uL (0.0-0.2) Segmented Neutrophils % 61 % (35-66) Band Neutrophils % 4 % (0-9) Lymphocytes % 26 % (24-48) Atypical Lymphocytes % (Manual) 5 % (0-0) Monocytes % 3 % (0-10) Eosinophils % 1 % (0-5) Platelet Estimate Increased (ADEQUATE) Giant Platelets Few Anisocytosis Slight Sodium Level 146 mmol/L (136-145) Potassium Level 3.9 mmol/L (3.5-5.1) Chloride Level 106 mmol/L (98-107) Carbon Dioxide Level 25 mmol/L (21-32) Anion Gap 15 (6-14) Blood Urea Nitrogen 30 mg/dL (7-20) Creatinine 6.3 mg/dL (0.6-1.0) Estimated GFR (Cockcroft-Gault) 7.9 BUN/Creatinine Ratio 5 (6-20) Glucose Level 145 mg/dL (70-99) Calcium Level 9.7 mg/dL (8.5-10.1) Total Bilirubin 0.3 mg/dL (0.2-1.0) Aspartate Amino Transf (AST/SGOT) 17 U/L (15-37) Alanine Aminotransferase (ALT/SGPT) 20 U/L (14-59) Alkaline Phosphatase 67 U/L (46-116) Creatine Kinase 26 U/L (26-192) Total Protein 7.2 g/dL (6.4-8.2) Albumin 2.3 g/dL (3.4-5.0) Albumin/Globulin Ratio 0.5 (1.0-1.7) Thyroid Stimulating Hormone (TSH) 11.117 uIU/mL (0.358-3.74) O2 Saturation 91 % (92-99) Arterial Blood pH 7.26 (7.35-7.45) Arterial Blood pCO2 at Patient Temp 36 mmHg (35-46) Arterial Blood pO2 at Patient Temp 74 mmHg (85-108) Arterial Blood HCO3 16 mmol/L (21-28) Arterial Blood Base Excess -10 mmol/L (-3-3) FiO2 100 Urine Opiates Screen Neg (NEG) Urine Methadone Screen Neg (NEG) Urine Barbiturates Neg (NEG) Urine Phencyclidine Screen Neg (NEG) Urine Amphetamine/Methamphetamine Neg (NEG) Urine Benzodiazepines Screen Pos (NEG) Urine Cocaine Screen Neg (NEG) Urine Cannabinoids Screen Neg (NEG) Urine Ethyl Alcohol Neg (NEG) Test 03/25/17 19:30 03/26/17 06:05 O2 Saturation 98 % (92-99) Arterial Blood pH 7.46 (7.35-7.45) Arterial Blood pCO2 at Patient Temp 36 mmHg (35-46) Arterial Blood pO2 at Patient Temp 128 mmHg (85-108) Arterial Blood HCO3 25 mmol/L (21-28) Arterial Blood Base Excess 1 mmol/L (-3-3) FiO2 90 Sodium Level 142 mmol/L (136-145) Potassium Level 3.9 mmol/L (3.5-5.1) Chloride Level 106 mmol/L (98-107) Carbon Dioxide Level 25 mmol/L (21-32) Anion Gap 11 (6-14) Blood Urea Nitrogen 27 mg/dL (7-20) Creatinine 4.6 mg/dL (0.6-1.0) Estimated GFR (Cockcroft-Gault) 11.3 Glucose Level 123 mg/dL (70-99) Lactic Acid Level 1.2 mmol/L (0.4-2.0) Calcium Level 8.0 mg/dL (8.5-10.1) Phosphorus Level 3.9 mg/dL (2.6-4.7) Albumin 1.8 g/dL (3.4-5.0) Objective Assessment Leukocytosis Acute encephalopathy Seizure s/p vomiting. now on Keppra, CK 26, CT neg Acute respiratory failure s/p intubation, 03/25 Hypotension on Levophed gtt EMILY now on dialysis Loose stools Appendicitis s/p appendectomy 03/15 S/p gastric sleeve February 2017 Plan Plan of Care Zosyn for possible aspiration Monitor WBC today, CBC in am Supportive care Attending Co-Sign Attending Co-Sign The patient was seen and interviewed as well as examined at the bedside. The chart was reviewed. The case was discussed. Agree with the plan of care. BHANU PERDOMO APRN Mar 26, 2017 08:59 GENE FRAZIER MD Mar 26, 2017 12:56
[2017-03-26] MEDS ORDERED: DIALYSIS PATIENT. MC PRN ×2 (09:00)
[2017-03-26] MEDS ORDERED: 0.9 % SODIUM CHLORIDE 10 ML DISP.SYRIN. IV PRN ×2 (09:00)
[2017-03-26 09:18] LABS: HCO3 ABG 20 mmol/L (21-28); PCO2 ABG 31 mmHg (35-46); PH ABG 7.43 (7.35-7.45); PO2 ABG 141 mmHg (85-108); SAT O2 ABG 99 % (92-99)
[2017-03-26 09:20] LABS: FIO2 ABG 40
--- NOTE | 2017-03-26 09:47 | RAD ---
Portable AP upright chest x-ray performed at 0548 History: Respiratory failure. Follow-up study. Comparison: March 25, 2017. IMPRESSION: ET tube tip is located 3.5 cm above the level of the karin. NG tube is in place and the tube is seen extending into at least the proximal body of the stomach. Right upper extremity PICC line tip remains within the mid SVC. Decreased inspiration with right lung base atelectasis is seen. The left lung base infiltrate and/or left-sided pleural effusion seen previously has improved. No pulmonary edema or pneumothorax is seen. The heart size and pulmonary vasculature and mediastinum and both harry are unremarkable.
--- NOTE | 2017-03-26 09:49 | PDOC ---
PROGRESS NOTES Subjective Subjective SEEN IN FOLLOW UP OF ARF. NO FURTHER SEIZURES Objective Objective Vital Signs Date Time Temp Pulse Resp B/P (MAP) Pulse Ox O2 Delivery O2 Flow Rate FiO2 03/26/17 09:00 81 103/84 (90) 03/26/17 09:00 16 100 Ventilator 03/26/17 07:00 99.1 99.1 03/25/17 08:00 2.0 Intake and Output 03/27/17 07:00 Intake Total 0 ml Output Total 350 ml Balance -350 ml Intake Oral 0 ml Output Urine Total 350 ml Physical Exam Abdomen: Normal bowel sounds, Soft, No tenderness, No hepatosplenomegaly, No masses Heart: Regular rate, Normal S1, Normal S2, No murmurs, Gallops Extremities: No clubbing, No cyanosis, No edema, Normal pulses, No tenderness/ swelling General: Other (SEDATED) Lungs: Clear to auscultation, Normal air movement, Other (ON VENT) Psych/Mental Status: Other (SEDATED) Diagnosis RENAL FAILURE: Acute (Acute tubular necrosis) Other SEIZURES Plan Plan of Care FOR DIALYSIS TODAY AND TOMORROW Comment Review of Relevant I have reviewed the following items na (where applicable) has been applied. Labs Laboratory Tests Test 03/25/17 06:05 03/25/17 13:29 03/25/17 13:30 03/25/17 13:42 Sodium Level 145 mmol/L (136-145) 146 mmol/L (136-145) Potassium Level 3.8 mmol/L (3.5-5.1) 3.9 mmol/L (3.5-5.1) Chloride Level 107 mmol/L (98-107) 106 mmol/L (98-107) Carbon Dioxide Level 28 mmol/L (21-32) 25 mmol/L (21-32) Anion Gap 10 (6-14) 15 (6-14) Blood Urea Nitrogen 29 mg/dL (7-20) 30 mg/dL (7-20) Creatinine 6.1 mg/dL (0.6-1.0) 6.3 mg/dL (0.6-1.0) Estimated GFR (Cockcroft-Gault) 8.2 7.9 Glucose Level 96 mg/dL (70-99) 145 mg/dL (70-99) Calcium Level 9.0 mg/dL (8.5-10.1) 9.7 mg/dL (8.5-10.1) Phosphorus Level 4.5 mg/dL (2.6-4.7) Albumin 1.8 g/dL (3.4-5.0) 2.3 g/dL (3.4-5.0) Glucose (Fingerstick) 133 mg/dL (70-99) White Blood Count 21.6 x10^3/uL (4.0-11.0) Red Blood Count 4.16 x10^6/uL (3.50-5.40) Hemoglobin 12.3 g/dL (12.0-15.5) Hematocrit 37.2 % (36.0-47.0) Mean Corpuscular Volume 90 fL (79-100) Mean Corpuscular Hemoglobin 30 pg (25-35) Mean Corpuscular Hemoglobin Concent 33 g/dL (31-37) Red Cell Distribution Width 15.7 % (11.5-14.5) Platelet Count 539 x10^3/uL (140-400) Neutrophils (%) (Auto) 64 % (31-73) Lymphocytes (%) (Auto) 27 % (24-48) Monocytes (%) (Auto) 6 % (0-9) Eosinophils (%) (Auto) 1 % (0-3) Basophils (%) (Auto) 2 % (0-3) Neutrophils # (Auto) 13.8 x10^3uL (1.8-7.7) Lymphocytes # (Auto) 5.9 x10^3/uL (1.0-4.8) Monocytes # (Auto) 1.3 x10^3/uL (0.0-1.1) Eosinophils # (Auto) 0.3 x10^3/uL (0.0-0.7) Basophils # (Auto) 0.4 x10^3/uL (0.0-0.2) Segmented Neutrophils % 61 % (35-66) Band Neutrophils % 4 % (0-9) Lymphocytes % 26 % (24-48) Atypical Lymphocytes % (Manual) 5 % (0-0) Monocytes % 3 % (0-10) Eosinophils % 1 % (0-5) Platelet Estimate Increased (ADEQUATE) Giant Platelets Few Anisocytosis Slight BUN/Creatinine Ratio 5 (6-20) Total Bilirubin 0.3 mg/dL (0.2-1.0) Aspartate Amino Transf (AST/SGOT) 17 U/L (15-37) Alanine Aminotransferase (ALT/SGPT) 20 U/L (14-59) Alkaline Phosphatase 67 U/L (46-116) Creatine Kinase 26 U/L (26-192) Total Protein 7.2 g/dL (6.4-8.2) Albumin/Globulin Ratio 0.5 (1.0-1.7) Thyroid Stimulating Hormone (TSH) 11.117 uIU/mL (0.358-3.74) O2 Saturation 91 % (92-99) Arterial Blood pH 7.26 (7.35-7.45) Arterial Blood pCO2 at Patient Temp 36 mmHg (35-46) Arterial Blood pO2 at Patient Temp 74 mmHg (85-108) Arterial Blood HCO3 16 mmol/L (21-28) Arterial Blood Base Excess -10 mmol/L (-3-3) FiO2 100 Test 03/25/17 17:00 03/25/17 19:30 03/26/17 06:05 03/26/17 09:10 Urine Opiates Screen Neg (NEG) Urine Methadone Screen Neg (NEG) Urine Barbiturates Neg (NEG) Urine Phencyclidine Screen Neg (NEG) Urine Amphetamine/Methamphetamine Neg (NEG) Urine Benzodiazepines Screen Pos (NEG) Urine Cocaine Screen Neg (NEG) Urine Cannabinoids Screen Neg (NEG) Urine Ethyl Alcohol Neg (NEG) O2 Saturation 98 % (92-99) 99 % (92-99) Arterial Blood pH 7.46 (7.35-7.45) 7.43 (7.35-7.45) Arterial Blood pCO2 at Patient Temp 36 mmHg (35-46) 31 mmHg (35-46) Arterial Blood pO2 at Patient Temp 128 mmHg (85-108) 141 mmHg (85-108) Arterial Blood HCO3 25 mmol/L (21-28) 20 mmol/L (21-28) Arterial Blood Base Excess 1 mmol/L (-3-3) -3 mmol/L (-3-3) FiO2 90 40 Sodium Level 142 mmol/L (136-145) Potassium Level 3.9 mmol/L (3.5-5.1) Chloride Level 106 mmol/L (98-107) Carbon Dioxide Level 25 mmol/L (21-32) Anion Gap 11 (6-14) Blood Urea Nitrogen 27 mg/dL (7-20) Creatinine 4.6 mg/dL (0.6-1.0) Estimated GFR (Cockcroft-Gault) 11.3 Glucose Level 123 mg/dL (70-99) Lactic Acid Level 1.2 mmol/L (0.4-2.0) Calcium Level 8.0 mg/dL (8.5-10.1) Phosphorus Level 3.9 mg/dL (2.6-4.7) Albumin 1.8 g/dL (3.4-5.0) Laboratory Tests Test 03/25/17 13:29 03/25/17 13:30 03/25/17 13:42 03/25/17 17:00 Glucose (Fingerstick) 133 mg/dL (70-99) White Blood Count 21.6 x10^3/uL (4.0-11.0) Red Blood Count 4.16 x10^6/uL (3.50-5.40) Hemoglobin 12.3 g/dL (12.0-15.5) Hematocrit 37.2 % (36.0-47.0) Mean Corpuscular Volume 90 fL (79-100) Mean Corpuscular Hemoglobin 30 pg (25-35) Mean Corpuscular Hemoglobin Concent 33 g/dL (31-37) Red Cell Distribution Width 15.7 % (11.5-14.5) Platelet Count 539 x10^3/uL (140-400) Neutrophils (%) (Auto) 64 % (31-73) Lymphocytes (%) (Auto) 27 % (24-48) Monocytes (%) (Auto) 6 % (0-9) Eosinophils (%) (Auto) 1 % (0-3) Basophils (%) (Auto) 2 % (0-3) Neutrophils # (Auto) 13.8 x10^3uL (1.8-7.7) Lymphocytes # (Auto) 5.9 x10^3/uL (1.0-4.8) Monocytes # (Auto) 1.3 x10^3/uL (0.0-1.1) Eosinophils # (Auto) 0.3 x10^3/uL (0.0-0.7) Basophils # (Auto) 0.4 x10^3/uL (0.0-0.2) Segmented Neutrophils % 61 % (35-66) Band Neutrophils % 4 % (0-9) Lymphocytes % 26 % (24-48) Atypical Lymphocytes % (Manual) 5 % (0-0) Monocytes % 3 % (0-10) Eosinophils % 1 % (0-5) Platelet Estimate Increased (ADEQUATE) Giant Platelets Few Anisocytosis Slight Sodium Level 146 mmol/L (136-145) Potassium Level 3.9 mmol/L (3.5-5.1) Chloride Level 106 mmol/L (98-107) Carbon Dioxide Level 25 mmol/L (21-32) Anion Gap 15 (6-14) Blood Urea Nitrogen 30 mg/dL (7-20) Creatinine 6.3 mg/dL (0.6-1.0) Estimated GFR (Cockcroft-Gault) 7.9 BUN/Creatinine Ratio 5 (6-20) Glucose Level 145 mg/dL (70-99) Calcium Level 9.7 mg/dL (8.5-10.1) Total Bilirubin 0.3 mg/dL (0.2-1.0) Aspartate Amino Transf (AST/SGOT) 17 U/L (15-37) Alanine Aminotransferase (ALT/SGPT) 20 U/L (14-59) Alkaline Phosphatase 67 U/L (46-116) Creatine Kinase 26 U/L (26-192) Total Protein 7.2 g/dL (6.4-8.2) Albumin 2.3 g/dL (3.4-5.0) Albumin/Globulin Ratio 0.5 (1.0-1.7) Thyroid Stimulating Hormone (TSH) 11.117 uIU/mL (0.358-3.74) O2 Saturation 91 % (92-99) Arterial Blood pH 7.26 (7.35-7.45) Arterial Blood pCO2 at Patient Temp 36 mmHg (35-46) Arterial Blood pO2 at Patient Temp 74 mmHg (85-108) Arterial Blood HCO3 16 mmol/L (21-28) Arterial Blood Base Excess -10 mmol/L (-3-3) FiO2 100 Urine Opiates Screen Neg (NEG) Urine Methadone Screen Neg (NEG) Urine Barbiturates Neg (NEG) Urine Phencyclidine Screen Neg (NEG) Urine Amphetamine/Methamphetamine Neg (NEG) Urine Benzodiazepines Screen Pos (NEG) Urine Cocaine Screen Neg (NEG) Urine Cannabinoids Screen Neg (NEG) Urine Ethyl Alcohol Neg (NEG) Test 03/25/17 19:30 03/26/17 06:05 03/26/17 09:10 O2 Saturation 98 % (92-99) 99 % (92-99) Arterial Blood pH 7.46 (7.35-7.45) 7.43 (7.35-7.45) Arterial Blood pCO2 at Patient Temp 36 mmHg (35-46) 31 mmHg (35-46) Arterial Blood pO2 at Patient Temp 128 mmHg (85-108) 141 mmHg (85-108) Arterial Blood HCO3 25 mmol/L (21-28) 20 mmol/L (21-28) Arterial Blood Base Excess 1 mmol/L (-3-3) -3 mmol/L (-3-3) FiO2 90 40 Sodium Level 142 mmol/L (136-145) Potassium Level 3.9 mmol/L (3.5-5.1) Chloride Level 106 mmol/L (98-107) Carbon Dioxide Level 25 mmol/L (21-32) Anion Gap 11 (6-14) Blood Urea Nitrogen 27 mg/dL (7-20) Creatinine 4.6 mg/dL (0.6-1.0) Estimated GFR (Cockcroft-Gault) 11.3 Glucose Level 123 mg/dL (70-99) Lactic Acid Level 1.2 mmol/L (0.4-2.0) Calcium Level 8.0 mg/dL (8.5-10.1) Phosphorus Level 3.9 mg/dL (2.6-4.7) Albumin 1.8 g/dL (3.4-5.0) Microbiology 03/17/17 Blood Culture - Final, Complete NO GROWTH AFTER 5 DAYS Medications Current Medications Dexamethasone Sodium Phosphate (Decadron) 20 mg STK-MED ONCE .ROUTE ; Start 03/15/17 at 14:06; Stop 03/15/17 at 14:07; Status DC Ondansetron HCl (Zofran) 4 mg STK-MED ONCE .ROUTE ; Start 03/15/17 at 14:06; Stop 03/15/17 at 14:07; Status DC Propofol 20 ml @ As Directed STK-MED ONCE IV ; Start 03/15/17 at 14:06; Stop at 14:07; Status DC Lidocaine HCl (Lidocaine Pf 2% Vial) 5 ml STK-MED ONCE .ROUTE ; Start 03/15/17 at 14:06; Stop 03/15/17 at 14:07; Status DC Midazolam HCl (Versed) 2 mg STK-MED ONCE .ROUTE ; Start 03/15/17 at 14:06; Stop 03/15/17 at 14:07; Status DC Fentanyl Citrate (Fentanyl 2ml Vial) 100 mcg STK-MED ONCE .ROUTE ; Start at 14:06; Stop 03/15/17 at 14:07; Status DC Rocuronium [place] (Zemuron) 100 mg STK-MED ONCE .ROUTE ; Start 03/15/17 at 14: 07; Stop 03/15/17 at 14:08; Status DC Succinylcholine Chloride (Anectine) 200 mg STK-MED ONCE .ROUTE ; Start 03/15/17 at 14:07; Stop 03/15/17 at 14:08; Status DC Bupivacaine HCl/ Epinephrine Bitart (Marcaine-Epi 0.5%-[id number]) 50 ml STK-MED ONCE .ROUTE Last administered on 03/15/17 14:54; Start 03/15/17 at 13:07; Stop 03/15/17 at 14:08; Status DC Cefoxitin Sodium 2 gm/Sodium Chloride 100 ml @ 200 mls/hr 1X PREOP IV Last administered on 03/15/17 14:55; Start 03/15/17 at 16:00; Stop 03/16/17 at 14:41 ; Status DC Sodium Chloride 1,000 ml @ 125 mls/hr 1X ONCE IV Last administered on 14:15; Start 03/15/17 at 14:15; Stop 03/15/17 at 22:14; Status DC Cefoxitin Sodium 100 ml @ As Directed STK-MED ONCE IV ; Start 03/15/17 at 14:53 ; Stop 03/15/17 at 14:54; Status DC Enoxaparin Sodium (Lovenox 40mg Syringe) 40 mg Q24H SQ ; Start 03/15/17 at 15:30 ; Stop 03/16/17 at 14:38; Status DC Sodium Chloride (Normal Saline Flush) 3 ml QSHIFT PRN IV AFTER MEDS AND BLOOD DRAWS; Start 03/15/17 at 15:30 Ringer's Solution 1,000 ml @ 125 mls/hr Q8H IV Last administered on 01:16; Start 03/15/17 at 15:19 Acetaminophen/ Hydrocodone Bitart (Lortab 5/325) 1 tab PRN Q4HRS PRN PO MILD PAIN Last administered on 03/16/17 02:56; Start 03/15/17 at 15:30; Stop at 13:05; Status DC Ketorolac Tromethamine (Toradol) 15 mg PRN Q6HRS PRN IV PAIN; Start 03/15/17 at 15:30; Stop 03/16/17 at 09:05; Status DC Morphine Sulfate 2 mg PRN Q1HR PRN IV PAIN Last administered on 03/22/17 09: 36; Start 03/15/17 at 15:30 Docusate Sodium (Colace) 100 mg BID PO Last administered on 03/17/17 13:04; Start 03/15/17 at 21:00 Ondansetron HCl (Zofran) 4 mg PRN Q6HRS PRN IV NAUESA, 1ST CHOICE Last administered on 03/22/17 06:34; Start 03/15/17 at 15:30; Stop 03/22/17 at 09: 09; Status DC Piperacillin Sod/ Tazobactam Sod 3.375 gm/Sodium Chloride 50 ml @ 100 mls/hr Q6HRS IV Last administered on 03/21/17 06:20; Start 03/15/17 at 18:00; Stop 03/21/17 at 09:24; Status DC Morphine Sulfate 10 mg STK-MED ONCE .ROUTE ; Start 03/15/17 at 15:32; Stop 03/15 at 15:33; Status DC Ringer's Solution 1,000 ml @ 125 mls/hr Q8H IV Last administered on 03/16/17 00:51; Start 03/15/17 at 15:42; Stop 03/16/17 at 03:41; Status DC Lidocaine HCl (Xylocaine-Mpf 1% Vial) 0.5 ml 1X PRN PRN INJ IV START; Start at 15:45; Stop 03/16/17 at 15:44; Status DC Ringer's Solution 1,000 ml @ 125 mls/hr Q8H IV ; Start 03/15/17 at 15:42; Stop 03/15/17 at 21:41; Status DC Fentanyl Citrate (Fentanyl 2ml Vial) 25 mcg PRN Q5MIN PRN IV Acute Pain; Start 03/15/17 at 15:45; Stop 03/16/17 at 09:05; Status DC Fentanyl Citrate (Fentanyl 2ml Vial) 50 mcg PRN Q5MIN PRN IV Acute Pain Last administered on 03/15/17 15:58; Start 03/15/17 at 15:45; Stop 03/16/17 at 09:05 ; Status DC Morphine Sulfate 2 mg PRN Q10MIN PRN IV Mild Pain; Start 03/15/17 at 15:45; Stop 03/16/17 at 09:05; Status DC Morphine Sulfate 4 mg PRN Q10MIN PRN IV Moderate Pain; Start 03/15/17 at 15:45 ; Stop 03/16/17 at 09:05; Status DC Ondansetron HCl (Zofran) 4 mg PRN Q6HRS PRN IV Nausea, 1st Choice; Start at 15:45; Stop 03/16/17 at 09:05; Status DC Metoclopramide HCl (Reglan) 10 mg PRN Q6HRS PRN IV Nausea/Vomiting, 2nd Choice Last administered on 03/15/17 18:49; Start 03/15/17 at 15:45; Stop 03/16/17 at 15:44; Status DC Diphenhydramine HCl (Benadryl) 12.5 mg PRN Q2HR PRN IV ITCHING; Start 03/15/17 at 15:45; Stop 03/16/17 at 15:44; Status DC Albuterol Sulfate (Ventolin Neb Soln) 2.5 mg PRN 1X PRN NEB Shortness of Breath , Wheezing; Start 03/15/17 at 15:45; Stop 03/16/17 at 15:44; Status DC Dexamethasone Sodium Phosphate (Decadron) 8 mg 1X PRN PRN IV 3RD CHOICE FOR NAUSEA; Start 03/15/17 at 15:45; Stop 03/16/17 at 15:44; Status DC Meperidine HCl (Demerol) 10 mg 1X PERIOP PRN IV SHIVERING; Start 03/15/17 at 15 :45; Stop 03/16/17 at 15:44; Status DC Meperidine HCl (Demerol) 15 mg 1X PERIOP PRN IV SHIVERING; Start 03/15/17 at 15 :45; Stop 03/16/17 at 15:44; Status DC Prochlorperazine Edisylate (Compazine) 10 mg STK-MED ONCE .ROUTE ; Start at 15:48; Stop 03/15/17 at 15:49; Status DC Prochlorperazine Maleate (Compazine) 5 mg 1X PACU PRN PO NAUSEA/VOMITING; Start 03/15/17 at 16:00; Stop 03/19/17 at 19:03; Status DC Hydromorphone HCl (Dilaudid) 0.5 mg PRN Q10MIN PRN IV PAIN Last administered on 03/15/17 16:52; Start 03/15/17 at 16:15; Stop 03/16/17 at 09:05; Status DC Acetaminophen/ Hydrocodone Bitart (Lortab 5/325) 2 tab PRN Q4HRS PRN PO PAIN Last administered on 03/16/17 10:16; Start 03/16/17 at 09:15; Stop 03/16/17 at 13:05; Status DC Multivitamins (Thera M Plus) 1 tab DAILY PO Last administered on 03/26/17 07: 42; Start 03/16/17 at 13:00 Pantoprazole Sodium (Protonix) 40 mg DAILYAC PO Last administered on 03/20/17 08:48; Start 03/16/17 at 13:00; Stop 03/20/17 at 11:14; Status DC Oxycodone/ Acetaminophen (Percocet 7.5/ 325) 1 tab PRN Q4HRS PRN PO PAIN Last administered on 03/23/17 14:59; Start 03/16/17 at 13:15 Morphine Sulfate 4 mg PRN Q2HR PRN IV PAIN Last administered on 03/18/17 14:11 ; Start 03/16/17 at 13:15 Enoxaparin Sodium (Lovenox 40mg Syringe) 40 mg Q12HR SQ Last administered on 08:47; Start 03/16/17 at 21:00; Stop 03/20/17 at 16:57; Status DC Iohexol (Omnipaque 300 Mg/ml) 75 ml 1X ONCE IV Last administered on 03/17/17 08:00; Start 03/17/17 at 08:00; Stop 03/17/17 at 08:01; Status DC Iohexol (Omnipaque 240 Mg/ml) 50 ml 1X ONCE PO Last administered on 03/17/17 08:00; Start 03/17/17 at 08:00; Stop 03/17/17 at 08:01; Status DC Info (Do NOT chart on this entry -- for MONITORING) 1 each PRN DAILY PRN MC SEE COMMENTS; Start 03/17/17 at 07:45; Stop 03/19/17 at 07:44; Status DC Sodium Chloride 1,000 ml @ 1,000 mls/hr 1X ONCE IV Last administered on 08:00; Start 03/17/17 at 08:00; Stop 03/17/17 at 08:59; Status DC Vancomycin HCl (Vanco Per Pharmacy) 1 each PRN DAILY PRN MC SEE COMMENTS Last administered on 03/18/17 14:24; Start 03/17/17 at 08:00; Stop 03/19/17 at 11:10 ; Status DC Fluconazole/ Sodium Chloride 200 ml @ 100 mls/hr Q24H IV Last administered on 03/21/17 08:07; Start 03/17/17 at 09:00; Stop 03/21/17 at 09:24; Status DC Vancomycin HCl 2 gm/Sodium Chloride 500 ml @ 250 mls/hr 1X ONCE IV Last administered on 03/17/17 13:08; Start 03/17/17 at 09:00; Stop 03/17/17 at 10:59 ; Status DC Acetaminophen (Tylenol) 650 mg PRN Q6HRS PRN PO FEVER Last administered on 16:34; Start 03/17/17 at 08:15 Vancomycin HCl 2 gm/Sodium Chloride 500 ml @ 250 mls/hr Q8H IV Last administered on 03/19/17 05:41; Start 03/17/17 at 22:00; Stop 03/19/17 at 11:10 ; Status DC Vancomycin HCl 1 each 1X ONCE MC ; Start 03/18/17 at 13:30; Stop 03/18/17 at 13 :31; Status DC Calcium Carbonate/ Glycine (Tums) 1,000 mg PRN Q4HRS PRN PO INDIGESTION Last administered on 03/17/17 23:57; Start 03/17/17 at 23:45 Potassium Chloride (Klor-Con) 40 meq 1X ONCE PO Last administered on 14:14; Start 03/18/17 at 12:45; Stop 03/18/17 at 12:46; Status DC Vancomycin HCl 1 each 1X ONCE MC ; Start 03/19/17 at 13:30; Stop 03/19/17 at 13 :30; Status DC Sodium Chloride 1,000 ml @ 1,000 mls/hr 1X ONCE IV Last administered on 14:28; Start 03/19/17 at 12:15; Stop 03/19/17 at 13:14; Status DC Pantoprazole Sodium (Protonix) 40 mg BIDAC PO Last administered on 03/25/17 08:31; Start 03/20/17 at 16:30; Stop 03/25/17 at 16:05; Status DC Simethicone (Gas-X) 80 mg PRN AFTMEALHC PRN PO GAS / BLOATING Last administered on 03/22/17 08:55; Start 03/20/17 at 11:15 Al Hydroxide/Mg Hydroxide (Mylanta Plus Xs) 30 ml PRN Q2HR PRN PO HEARTBURN / GAS; Start 03/20/17 at 11:15 Enoxaparin Sodium (Lovenox 40mg Syringe) 40 mg DAILY SQ Last administered on 08:09; Start 03/21/17 at 09:00; Stop 03/22/17 at 12:42; Status DC Fluconazole/ Sodium Chloride 100 ml @ 100 mls/hr Q24H IV ; Start 03/22/17 at 09:00; Stop 03/22/17 at 09:00; Status DC Piperacillin Sod/ Tazobactam Sod 3.375 gm/Sodium Chloride 50 ml @ 100 mls/hr Q12HR IV ; Start 03/21/17 at 21:00; Stop 03/21/17 at 21:00; Status DC Fluconazole/ Sodium Chloride 100 ml @ 100 mls/hr Q24H IV Last administered on 03/22/17 09:30; Start 03/22/17 at 09:00; Stop 03/23/17 at 10:05; Status DC Piperacillin Sod/ Tazobactam Sod 2.25 gm/Sodium Chloride 50 ml @ 100 mls/hr Q6HRS IV Last administered on 03/23/17 05:58; Start 03/21/17 at 12:00; Stop 03/23/17 at 10:05; Status DC Ondansetron HCl (Zofran) 8 mg PRN Q8HRS PRN IV NAUESA, 1ST CHOICE Last administered on 03/25/17 06:17; Start 03/22/17 at 09:15 Prochlorperazine Edisylate (Compazine) 10 mg PRN Q8HRS PRN IV NAUSEA/VOMITING - 2nd choice Last administered on 03/25/17 10:23; Start 03/22/17 at 09:15 Amino Acids/ Glycerin/ Electrolytes 1,000 ml @ 80 mls/hr [id number] IV Last administered on 03/26/17 04:13; Start 03/22/17 at 11:45 Heparin Sodium (Porcine) (Heparin Sq) 5,000 unit Q8HRS SQ Last administered on 03/25/17 06:07; Start 03/22/17 at 14:00; Stop 03/25/17 at 08:45; Status DC Loperamide HCl (Imodium) 2 mg PRN Q15MIN PRN PO DIARRHEA; Start 03/23/17 at 08 :00 Amoxicillin/ Clavulanate Potassium (Augmentin 500/ 125mg) 1 tab BID PO Last administered on 03/25/17 08:31; Start 03/23/17 at 10:30; Stop 03/25/17 at 14 :03; Status DC Promethazine HCl (Phenergan) 25 mg PRN Q6HRS PRN IA NAUSEA/VOMITING; Start 05/28 at 15:15 Furosemide (Lasix) 80 mg 1X ONCE IVP Last administered on 03/24/17 12:13; Start 03/24/17 at 11:30; Stop 03/24/17 at 11:31; Status DC Iohexol (Omnipaque 240 Mg/ml) 50 ml 1X ONCE PO Last administered on 09:30; Start 03/25/17 at 09:30; Stop 03/25/17 at 09:31; Status DC Iohexol (Omnipaque 240 Mg/ml) 50 ml 1X ONCE PO Last administered on 12:32; Start 03/25/17 at 12:30; Stop 03/25/17 at 12:31; Status DC Lorazepam (Ativan) 1 mg 1X ONCE IV Last administered on 03/25/17 13:40; Start 03/25/17 at 14:00; Stop 03/25/17 at 14:01; Status DC Piperacillin Sod/ Tazobactam Sod 2.25 gm/Sodium Chloride 50 ml @ 100 mls/hr Q8HRS IV Last administered on 03/26/17 06:26; Start 03/25/17 at 15:00 Levetiracetam 500 mg/Sodium Chloride 100 ml @ 400 mls/hr Q12HR IV ; Start at 15:00; Stop 03/25/17 at 15:00; Status DC Lorazepam (Ativan) 2 mg PRN Q1HR PRN IV SEIZURE Last administered on 14:30; Start 03/25/17 at 14:15; Stop 03/25/17 at 15:27; Status DC Levetiracetam 750 mg/Sodium Chloride 107.5 ml @ 400 mls/hr Q12HR IV Last administered on 03/26/17 07:41; Start 03/25/17 at 15:00 Digoxin (Lanoxin) 500 mcg 1X ONCE IV Last administered on 03/25/17 14:34; Start 03/25/17 at 14:30; Stop 03/25/17 at 14:31; Status DC Norepinephrine Bitartrate 250 ml @ 0 mls/hr CONT PRN IV SEE I/O RECORD Last administered on 03/25/17 21:53; Start 03/25/17 at 14:30 Sodium Chloride 1,000 ml @ 1,000 mls/hr 1X ONCE IV Last administered on 03/25 15:38; Start 03/25/17 at 15:00; Stop 03/25/17 at 15:59; Status DC Lorazepam (Ativan) 2 mg PRN Q4HRS PRN IV SEIZURE Last administered on 15:55; Start 03/25/17 at 15:30 Propofol 100 ml @ As Directed STK-MED ONCE IV ; Start 03/25/17 at 15:28; Stop 03/25/17 at 15:29; Status DC Propofol 100 ml @ 0 mls/hr CONT PRN IV SEE I/O RECORD Last administered on 07:32; Start 03/25/17 at 15:45 Sodium Bicarbonate 150 meq 1X ONCE IV Last administered on 03/25/17 15:43; Start 03/25/17 at 16:00; Stop 03/25/17 at 16:01; Status DC Adenosine (Adenocard) 6 mg 1X ONCE IV Last administered on 03/25/17 15:42; Start 03/25/17 at 16:15; Stop 03/25/17 at 16:16; Status DC Adenosine (Adenocard) 12 mg 1X ONCE IV Last administered on 03/25/17 15:48; Start 03/25/17 at 16:00; Stop 03/25/17 at 16:01; Status DC Midazolam HCl (Versed) 5 mg 1X ONCE IV Last administered on 03/25/17 15:48; Start 03/25/17 at 16:00; Stop 03/25/17 at 16:01; Status DC Pantoprazole Sodium (Protonix Vial) 40 mg BID IVP Last administered on 07:41; Start 03/25/17 at 21:00 Sodium Chloride 1,000 ml @ 1,000 mls/hr Q1H PRN IV hypotension; Start at 16:30; Stop 03/25/17 at 22:29; Status DC Sodium Chloride (Normal Saline Flush) 10 ml 1X PRN PRN IV AP catheter pack; Start 03/25/17 at 16:30; Stop 03/26/17 at 08:54; Status DC Sodium Chloride (Normal Saline Flush) 10 ml 1X PRN PRN IV TUB MENDER catheter pack; Start 03/25/17 at 16:30; Stop 03/26/17 at 08:54; Status DC Sodium Chloride 1,000 ml @ 400 mls/hr Q2H30M PRN IV PATENCY; Start 03/25/17 at 16:30; Stop 03/26/17 at 04:29; Status DC Info (PHARMACY MONITORING -- do not chart) 1 each PRN DAILY PRN MC SEE COMMENTS ; Start 03/25/17 at 16:30 Info (PHARMACY MONITORING -- do not chart) 1 each PRN DAILY PRN MC SEE COMMENTS ; Start 03/25/17 at 16:30; Status UNV Acetaminophen (Tylenol) 650 mg PRN Q6HRS PRN PEG MILD PAIN / TEMP Last administered on 03/25/17t 18:44; Start 03/25/17 at 18:30 Fentanyl Citrate 30 ml @ 0 mls/hr CONT PRN PRN IV PROTOCOL; Start 03/25/17 at 19:15 Sodium Chloride 1,000 ml @ 1,000 mls/hr Q1H PRN IV hypotension; Start at 08:46; Stop 03/26/17 at 14:45 Sodium Chloride (Normal Saline Flush) 10 ml 1X PRN PRN IV AP catheter pack; Start 03/26/17 at 09:00; Stop 03/27/17 at 08:59 Sodium Chloride (Normal Saline Flush) 10 ml 1X PRN PRN IV TUB MENDER catheter pack; Start 03/26/17 at 09:00; Stop 03/27/17 at 08:59 Sodium Chloride 1,000 ml @ 400 mls/hr Q2H30M PRN IV PATENCY; Start 03/26/17 at 08:46; Stop 03/26/17 at 20:45 Info (PHARMACY MONITORING -- do not chart) 1 each PRN DAILY PRN MC SEE COMMENTS ; Start 03/26/17 at 09:00; Status UNV Info (PHARMACY MONITORING -- do not chart) 1 each PRN DAILY PRN MC SEE COMMENTS ; Start 03/26/17 at 09:00; Status UNV Active Scripts Active Reported Multivitamins (Multivitamin) 1 Each Tablet 1 Tab PO DAILY Omeprazole 20 Mg Capsule. 1 Cap PO DAILY Vitals/I & O Vital Sign - Last 24 Hours 03/25/17 03/25/17 03/25/17 03/25/17 11:00 13:34 14:00 14:15 Temp 97.5 97.5 Pulse 87 166 Resp 20 29 B/P (MAP) 133/90 (104) 135/92 (106) Pulse Ox 92 100 O2 Delivery Room Air Ventilator Ventilator Mechanical Ventilator 03/25/17 03/25/17 03/25/17 03/25/17 14:15 14:34 15:00 15:15 Temp 99.5 99.5 Pulse 182 180 178 174 Resp 30 34 B/P (MAP) 90/63 (72) 90/62 117/96 (103) 158/86 (110) Pulse Ox 89 87 O2 Delivery Ventilator Ventilator 03/25/17 03/25/17 03/25/17 03/25/17 15:45 16:00 16:00 17:00 Pulse 140 120 128 122 Resp 30 27 B/P (MAP) 118/70 (86) 114/74 (87) 112/72 (85) 112/76 (88) Pulse Ox 93 97 O2 Delivery Ventilator Ventilator 03/25/17 03/25/17 03/25/17 03/25/17 17:00 17:20 18:00 18:20 Temp 99.4 99.4 Pulse 122 132 118 Resp 32 30 B/P (MAP) 109/73 (85) 114/65 (81) 119/76 (90) Pulse Ox 99 98 98 O2 Delivery Ventilator Ventilator Ventilator 03/25/17 03/25/17 03/25/17 03/25/17 19:00 19:00 19:51 20:00 Pulse 112 Resp 30 B/P (MAP) 91/56 (68) Pulse Ox 98 98 O2 Delivery Ventilator Ventilator Mechanical Ventilator 03/25/17 03/25/17 03/25/17 03/25/17 20:00 20:00 21:00 21:00 Temp 99.0 99.0 Pulse 105 97 Resp 25 18 B/P (MAP) 90/54 (66) 89/54 (66) Pulse Ox 96 98 99 O2 Delivery Ventilator Ventilator Ventilator 03/25/17 03/25/17 03/25/17 03/25/17 21:00 22:00 22:00 23:00 Pulse 94 Resp 22 B/P (MAP) 94/57 (69) Pulse Ox 100 O2 Delivery Ventilator 03/25/17 03/25/17 03/26/17 03/26/17 23:00 23:49 00:00 00:00 Pulse 88 Resp 23 B/P (MAP) 91/53 (66) Pulse Ox 100 98 O2 Delivery Ventilator Ventilator Mechanical Ventilator 03/26/17 03/26/17 03/26/17 03/26/17 00:00 01:00 01:00 01:12 Temp 99.4 99.4 Pulse 77 83 Resp 27 21 B/P (MAP) 100/63 (75) 90/65 (73) Pulse Ox 100 100 98 O2 Delivery Ventilator Ventilator Ventilator 03/26/17 03/26/17 03/26/17 03/26/17 02:00 02:00 03:00 03:00 Pulse 80 82 Resp 16 16 B/P (MAP) 95/69 (78) 107/62 (77) Pulse Ox 100 100 O2 Delivery Ventilator Ventilator 03/26/17 03/26/17 03/26/17 03/26/17 03:23 04:00 04:00 04:00 Temp 99.0 99.0 Pulse 86 Resp 22 B/P (MAP) 111/66 (81) Pulse Ox 100 100 O2 Delivery Ventilator Ventilator Mechanical Ventilator 03/26/17 03/26/17 03/26/17 03/26/17 05:00 05:00 05:12 06:00 Pulse 84 81 Resp 18 16 B/P (MAP) 116/64 (81) 121/71 (88) Pulse Ox 99 100 100 O2 Delivery Ventilator Ventilator Ventilator 03/26/17 03/26/17 03/26/17 03/26/17 06:00 07:00 07:00 07:57 Temp 99.1 99.1 Pulse 80 80 Resp 16 B/P (MAP) 111/78 (89) 111/78 (89) Pulse Ox 100 O2 Delivery Ventilator Mechanical Ventilator 03/26/17 03/26/17 03/26/17 03/26/17 08:00 08:02 08:53 09:00 Pulse 79 80 81 Resp 17 16 B/P (MAP) 97/78 (84) 97/77 (84) 103/84 (90) Pulse Ox 100 100 100 O2 Delivery Ventilator Ventilator Ventilator 03/26/17 09:00 Pulse 81 B/P (MAP) 103/84 (90) Intake and Output 03/26/17 03/26/17 03/27/17 15:00 23:00 07:00 Intake Total 0 ml Output Total 350 ml Balance -350 ml MICHAEL CHIN MD Mar 26, 2017 09:48
--- NOTE | 2017-03-26 09:50 | RAD ---
Right leg venous Doppler study: Clinical indications: Right leg swelling and pain. Respiratory failure. Obesity. On the ventilator. Findings: Duplex sonography (including robertson scale evaluation and color flow and waveform spectral analysis) of the proximal aspect of the greater saphenous vein and proximal aspect of the profunda femoral vein and the entire length of the common femoral and superficial femoral and popliteal veins and the tibioperoneal trunk and the proximal aspect of the posterior tibial and peroneal veins of the right leg was performed. Normal compressibility, augmentation of color Doppler flow after calf compression, and respiratory variation of Doppler flow is seen. Thus, there are no sonographic findings of deep venous thrombosis within these veins. Impression: There are no sonographic findings of deep venous thrombosis within the veins discussed above of the right lower extremity. Left leg venous Doppler study: Clinical indications: Left leg swelling and pain. Respiratory failure. Obesity. On the ventilator. Findings: Duplex sonography (including robertson scale evaluation and color flow and waveform spectral analysis) of the proximal aspect of the greater saphenous vein and the proximal aspect of the profunda femoral vein and the entire length of the common femoral and superficial femoral and popliteal veins and the tibioperoneal trunk and the proximal aspect of the posterior tibial veins of the left leg was performed. Normal compressibility, augmentation of color Doppler flow after calf compression, and respiratory variation of Doppler flow is seen. Thus, there are no sonographic findings of deep venous thrombosis within these veins. The peroneal veins are not visualized on this patient. Impression: There are no sonographic findings of deep venous thrombosis within the veins discussed above of the left lower extremity. The peroneal veins are not visualized.
--- NOTE | 2017-03-26 11:01 | PDOC ---
JORGE DEVI CLINICAL PROFESSOR 03/26/17 1101: SURGICAL PROGRESS NOTE Subjective intubated, sedated Vital Signs Vital Signs Date Time Temp Pulse Resp B/P (MAP) Pulse Ox O2 Delivery O2 Flow Rate FiO2 03/26/17 10:50 82 16 116/73 (87) 100 Ventilator 03/26/17 07:00 99.1 99.1 03/25/17 08:00 2.0 I&O Intake and Output 03/27/17 06:59 Intake Total 120 ml Output Total 500 ml Balance -380 ml Intake Oral 0 ml Other 120 ml Output Urine Total 500 ml # Bowel Movements 2 PATIENT HAS A GARCIA: Yes General: Other (sedated ) Abdomen: Soft Labs Laboratory Tests Test 03/25/17 06:05 03/25/17 13:29 03/25/17 13:30 03/25/17 13:42 Sodium Level 145 mmol/L (136-145) 146 mmol/L (136-145) Potassium Level 3.8 mmol/L (3.5-5.1) 3.9 mmol/L (3.5-5.1) Chloride Level 107 mmol/L (98-107) 106 mmol/L (98-107) Carbon Dioxide Level 28 mmol/L (21-32) 25 mmol/L (21-32) Anion Gap 10 (6-14) 15 (6-14) Blood Urea Nitrogen 29 mg/dL (7-20) 30 mg/dL (7-20) Creatinine 6.1 mg/dL (0.6-1.0) 6.3 mg/dL (0.6-1.0) Estimated GFR (Cockcroft-Gault) 8.2 7.9 Glucose Level 96 mg/dL (70-99) 145 mg/dL (70-99) Calcium Level 9.0 mg/dL (8.5-10.1) 9.7 mg/dL (8.5-10.1) Phosphorus Level 4.5 mg/dL (2.6-4.7) Albumin 1.8 g/dL (3.4-5.0) 2.3 g/dL (3.4-5.0) Glucose (Fingerstick) 133 mg/dL (70-99) White Blood Count 21.6 x10^3/uL (4.0-11.0) Red Blood Count 4.16 x10^6/uL (3.50-5.40) Hemoglobin 12.3 g/dL (12.0-15.5) Hematocrit 37.2 % (36.0-47.0) Mean Corpuscular Volume 90 fL (79-100) Mean Corpuscular Hemoglobin 30 pg (25-35) Mean Corpuscular Hemoglobin Concent 33 g/dL (31-37) Red Cell Distribution Width 15.7 % (11.5-14.5) Platelet Count 539 x10^3/uL (140-400) Neutrophils (%) (Auto) 64 % (31-73) Lymphocytes (%) (Auto) 27 % (24-48) Monocytes (%) (Auto) 6 % (0-9) Eosinophils (%) (Auto) 1 % (0-3) Basophils (%) (Auto) 2 % (0-3) Neutrophils # (Auto) 13.8 x10^3uL (1.8-7.7) Lymphocytes # (Auto) 5.9 x10^3/uL (1.0-4.8) Monocytes # (Auto) 1.3 x10^3/uL (0.0-1.1) Eosinophils # (Auto) 0.3 x10^3/uL (0.0-0.7) Basophils # (Auto) 0.4 x10^3/uL (0.0-0.2) Segmented Neutrophils % 61 % (35-66) Band Neutrophils % 4 % (0-9) Lymphocytes % 26 % (24-48) Atypical Lymphocytes % (Manual) 5 % (0-0) Monocytes % 3 % (0-10) Eosinophils % 1 % (0-5) Platelet Estimate Increased (ADEQUATE) Giant Platelets Few Anisocytosis Slight BUN/Creatinine Ratio 5 (6-20) Total Bilirubin 0.3 mg/dL (0.2-1.0) Aspartate Amino Transf (AST/SGOT) 17 U/L (15-37) Alanine Aminotransferase (ALT/SGPT) 20 U/L (14-59) Alkaline Phosphatase 67 U/L (46-116) Creatine Kinase 26 U/L (26-192) Total Protein 7.2 g/dL (6.4-8.2) Albumin/Globulin Ratio 0.5 (1.0-1.7) Thyroid Stimulating Hormone (TSH) 11.117 uIU/mL (0.358-3.74) O2 Saturation 91 % (92-99) Arterial Blood pH 7.26 (7.35-7.45) Arterial Blood pCO2 at Patient Temp 36 mmHg (35-46) Arterial Blood pO2 at Patient Temp 74 mmHg (85-108) Arterial Blood HCO3 16 mmol/L (21-28) Arterial Blood Base Excess -10 mmol/L (-3-3) FiO2 100 Test 03/25/17 17:00 03/25/17 19:30 03/26/17 06:05 03/26/17 09:10 Urine Opiates Screen Neg (NEG) Urine Methadone Screen Neg (NEG) Urine Barbiturates Neg (NEG) Urine Phencyclidine Screen Neg (NEG) Urine Amphetamine/Methamphetamine Neg (NEG) Urine Benzodiazepines Screen Pos (NEG) Urine Cocaine Screen Neg (NEG) Urine Cannabinoids Screen Neg (NEG) Urine Ethyl Alcohol Neg (NEG) O2 Saturation 98 % (92-99) 99 % (92-99) Arterial Blood pH 7.46 (7.35-7.45) 7.43 (7.35-7.45) Arterial Blood pCO2 at Patient Temp 36 mmHg (35-46) 31 mmHg (35-46) Arterial Blood pO2 at Patient Temp 128 mmHg (85-108) 141 mmHg (85-108) Arterial Blood HCO3 25 mmol/L (21-28) 20 mmol/L (21-28) Arterial Blood Base Excess 1 mmol/L (-3-3) -3 mmol/L (-3-3) FiO2 90 40 Sodium Level 142 mmol/L (136-145) Potassium Level 3.9 mmol/L (3.5-5.1) Chloride Level 106 mmol/L (98-107) Carbon Dioxide Level 25 mmol/L (21-32) Anion Gap 11 (6-14) Blood Urea Nitrogen 27 mg/dL (7-20) Creatinine 4.6 mg/dL (0.6-1.0) Estimated GFR (Cockcroft-Gault) 11.3 Glucose Level 123 mg/dL (70-99) Lactic Acid Level 1.2 mmol/L (0.4-2.0) Calcium Level 8.0 mg/dL (8.5-10.1) Phosphorus Level 3.9 mg/dL (2.6-4.7) Albumin 1.8 g/dL (3.4-5.0) Laboratory Tests Test 03/25/17 13:29 03/25/17 13:30 03/25/17 13:42 03/25/17 17:00 Glucose (Fingerstick) 133 mg/dL (70-99) White Blood Count 21.6 x10^3/uL (4.0-11.0) Red Blood Count 4.16 x10^6/uL (3.50-5.40) Hemoglobin 12.3 g/dL (12.0-15.5) Hematocrit 37.2 % (36.0-47.0) Mean Corpuscular Volume 90 fL (79-100) Mean Corpuscular Hemoglobin 30 pg (25-35) Mean Corpuscular Hemoglobin Concent 33 g/dL (31-37) Red Cell Distribution Width 15.7 % (11.5-14.5) Platelet Count 539 x10^3/uL (140-400) Neutrophils (%) (Auto) 64 % (31-73) Lymphocytes (%) (Auto) 27 % (24-48) Monocytes (%) (Auto) 6 % (0-9) Eosinophils (%) (Auto) 1 % (0-3) Basophils (%) (Auto) 2 % (0-3) Neutrophils # (Auto) 13.8 x10^3uL (1.8-7.7) Lymphocytes # (Auto) 5.9 x10^3/uL (1.0-4.8) Monocytes # (Auto) 1.3 x10^3/uL (0.0-1.1) Eosinophils # (Auto) 0.3 x10^3/uL (0.0-0.7) Basophils # (Auto) 0.4 x10^3/uL (0.0-0.2) Segmented Neutrophils % 61 % (35-66) Band Neutrophils % 4 % (0-9) Lymphocytes % 26 % (24-48) Atypical Lymphocytes % (Manual) 5 % (0-0) Monocytes % 3 % (0-10) Eosinophils % 1 % (0-5) Platelet Estimate Increased (ADEQUATE) Giant Platelets Few Anisocytosis Slight Sodium Level 146 mmol/L (136-145) Potassium Level 3.9 mmol/L (3.5-5.1) Chloride Level 106 mmol/L (98-107) Carbon Dioxide Level 25 mmol/L (21-32) Anion Gap 15 (6-14) Blood Urea Nitrogen 30 mg/dL (7-20) Creatinine 6.3 mg/dL (0.6-1.0) Estimated GFR (Cockcroft-Gault) 7.9 BUN/Creatinine Ratio 5 (6-20) Glucose Level 145 mg/dL (70-99) Calcium Level 9.7 mg/dL (8.5-10.1) Total Bilirubin 0.3 mg/dL (0.2-1.0) Aspartate Amino Transf (AST/SGOT) 17 U/L (15-37) Alanine Aminotransferase (ALT/SGPT) 20 U/L (14-59) Alkaline Phosphatase 67 U/L (46-116) Creatine Kinase 26 U/L (26-192) Total Protein 7.2 g/dL (6.4-8.2) Albumin 2.3 g/dL (3.4-5.0) Albumin/Globulin Ratio 0.5 (1.0-1.7) Thyroid Stimulating Hormone (TSH) 11.117 uIU/mL (0.358-3.74) O2 Saturation 91 % (92-99) Arterial Blood pH 7.26 (7.35-7.45) Arterial Blood pCO2 at Patient Temp 36 mmHg (35-46) Arterial Blood pO2 at Patient Temp 74 mmHg (85-108) Arterial Blood HCO3 16 mmol/L (21-28) Arterial Blood Base Excess -10 mmol/L (-3-3) FiO2 100 Urine Opiates Screen Neg (NEG) Urine Methadone Screen Neg (NEG) Urine Barbiturates Neg (NEG) Urine Phencyclidine Screen Neg (NEG) Urine Amphetamine/Methamphetamine Neg (NEG) Urine Benzodiazepines Screen Pos (NEG) Urine Cocaine Screen Neg (NEG) Urine Cannabinoids Screen Neg (NEG) Urine Ethyl Alcohol Neg (NEG) Test 03/25/17 19:30 03/26/17 06:05 03/26/17 09:10 O2 Saturation 98 % (92-99) 99 % (92-99) Arterial Blood pH 7.46 (7.35-7.45) 7.43 (7.35-7.45) Arterial Blood pCO2 at Patient Temp 36 mmHg (35-46) 31 mmHg (35-46) Arterial Blood pO2 at Patient Temp 128 mmHg (85-108) 141 mmHg (85-108) Arterial Blood HCO3 25 mmol/L (21-28) 20 mmol/L (21-28) Arterial Blood Base Excess 1 mmol/L (-3-3) -3 mmol/L (-3-3) FiO2 90 40 Sodium Level 142 mmol/L (136-145) Potassium Level 3.9 mmol/L (3.5-5.1) Chloride Level 106 mmol/L (98-107) Carbon Dioxide Level 25 mmol/L (21-32) Anion Gap 11 (6-14) Blood Urea Nitrogen 27 mg/dL (7-20) Creatinine 4.6 mg/dL (0.6-1.0) Estimated GFR (Cockcroft-Gault) 11.3 Glucose Level 123 mg/dL (70-99) Lactic Acid Level 1.2 mmol/L (0.4-2.0) Calcium Level 8.0 mg/dL (8.5-10.1) Phosphorus Level 3.9 mg/dL (2.6-4.7) Albumin 1.8 g/dL (3.4-5.0) Assessment/Plan s/p appy, seizures ARF supportive care, no surgical needs at this time Problems: MAIRA DANIELLE MD 03/26/17 8147: SURGICAL PROGRESS NOTE Assessment/Plan pt seen agree with above Problems: JORGE DEVI APRN Mar 26, 2017 11:01 MAIRA DANIELLE MD Mar 26, 2017 14:57
[2017-03-26] MEDS ORDERED: MIDAZOLAM HCL/PF 5 MG/5 ML VIAL. ONE (12:00)
[2017-03-26] MEDS ORDERED: SODIUM BICARB ADULT 8.4% 50 MEQ/50 ML DISP.SYRIN. ONE (12:00)
[2017-03-26] MEDS ORDERED: ADENOSINE 6 MG/2 ML VIAL. IV ONE (12:00)
--- NOTE | 2017-03-26 13:05 | PDOC ---
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 AMS and seizures secondary to EMILY and Uremia-now on dialysis. Pt seen at bedside in the ICU. NG tube in place. She is intubated and currently on the ventilator. A/C, 500 ml, 16, 5 PEEP, O2 sat 100% on 40% FiO2. Dialysis per nephro. Abx per ID. Neuro is following- [facility], brain MRI when stable. CT head negatie, CT abd/pelvis negative-improving. Pulm is following and monitoring the vent. Elevated TSH to 11.1, will give low dose Synthroid. Will continue to monitor in the ICU. Vitals Vitals Vital Signs Date Time Temp Pulse Resp B/P (MAP) Pulse Ox O2 Delivery O2 Flow Rate FiO2 03/26/17 12:50 101 16 107/69 (82) 100 Ventilator 03/26/17 11:40 99.4 99.4 03/25/17 08:00 2.0 Physical Exam General: Other (sedated and intubated on the ventilator, NG tube in place) Heart: Regular rate, Normal S1, Normal S2, No murmurs, Gallops Lungs: Clear Abdomen: Soft Extremities: No clubbing, No cyanosis, No edema, Normal pulses, No tenderness/ swelling Skin: No breakdown, No significant lesion Labs LABS Laboratory Tests Test 03/25/17 13:29 03/25/17 13:30 03/25/17 13:42 03/25/17 17:00 Glucose (Fingerstick) 133 mg/dL (70-99) White Blood Count 21.6 x10^3/uL (4.0-11.0) Red Blood Count 4.16 x10^6/uL (3.50-5.40) Hemoglobin 12.3 g/dL (12.0-15.5) Hematocrit 37.2 % (36.0-47.0) Mean Corpuscular Volume 90 fL (79-100) Mean Corpuscular Hemoglobin 30 pg (25-35) Mean Corpuscular Hemoglobin Concent 33 g/dL (31-37) Red Cell Distribution Width 15.7 % (11.5-14.5) Platelet Count 539 x10^3/uL (140-400) Neutrophils (%) (Auto) 64 % (31-73) Lymphocytes (%) (Auto) 27 % (24-48) Monocytes (%) (Auto) 6 % (0-9) Eosinophils (%) (Auto) 1 % (0-3) Basophils (%) (Auto) 2 % (0-3) Neutrophils # (Auto) 13.8 x10^3uL (1.8-7.7) Lymphocytes # (Auto) 5.9 x10^3/uL (1.0-4.8) Monocytes # (Auto) 1.3 x10^3/uL (0.0-1.1) Eosinophils # (Auto) 0.3 x10^3/uL (0.0-0.7) Basophils # (Auto) 0.4 x10^3/uL (0.0-0.2) Segmented Neutrophils % 61 % (35-66) Band Neutrophils % 4 % (0-9) Lymphocytes % 26 % (24-48) Atypical Lymphocytes % (Manual) 5 % (0-0) Monocytes % 3 % (0-10) Eosinophils % 1 % (0-5) Platelet Estimate Increased (ADEQUATE) Giant Platelets Few Anisocytosis Slight Sodium Level 146 mmol/L (136-145) Potassium Level 3.9 mmol/L (3.5-5.1) Chloride Level 106 mmol/L (98-107) Carbon Dioxide Level 25 mmol/L (21-32) Anion Gap 15 (6-14) Blood Urea Nitrogen 30 mg/dL (7-20) Creatinine 6.3 mg/dL (0.6-1.0) Estimated GFR (Cockcroft-Gault) 7.9 BUN/Creatinine Ratio 5 (6-20) Glucose Level 145 mg/dL (70-99) Calcium Level 9.7 mg/dL (8.5-10.1) Total Bilirubin 0.3 mg/dL (0.2-1.0) Aspartate Amino Transf (AST/SGOT) 17 U/L (15-37) Alanine Aminotransferase (ALT/SGPT) 20 U/L (14-59) Alkaline Phosphatase 67 U/L (46-116) Creatine Kinase 26 U/L (26-192) Total Protein 7.2 g/dL (6.4-8.2) Albumin 2.3 g/dL (3.4-5.0) Albumin/Globulin Ratio 0.5 (1.0-1.7) Thyroid Stimulating Hormone (TSH) 11.117 uIU/mL (0.358-3.74) O2 Saturation 91 % (92-99) Arterial Blood pH 7.26 (7.35-7.45) Arterial Blood pCO2 at Patient Temp 36 mmHg (35-46) Arterial Blood pO2 at Patient Temp 74 mmHg (85-108) Arterial Blood HCO3 16 mmol/L (21-28) Arterial Blood Base Excess -10 mmol/L (-3-3) FiO2 100 Urine Opiates Screen Neg (NEG) Urine Methadone Screen Neg (NEG) Urine Barbiturates Neg (NEG) Urine Phencyclidine Screen Neg (NEG) Urine Amphetamine/Methamphetamine Neg (NEG) Urine Benzodiazepines Screen Pos (NEG) Urine Cocaine Screen Neg (NEG) Urine Cannabinoids Screen Neg (NEG) Urine Ethyl Alcohol Neg (NEG) Test 03/25/17 19:30 03/26/17 06:05 03/26/17 09:10 O2 Saturation 98 % (92-99) 99 % (92-99) Arterial Blood pH 7.46 (7.35-7.45) 7.43 (7.35-7.45) Arterial Blood pCO2 at Patient Temp 36 mmHg (35-46) 31 mmHg (35-46) Arterial Blood pO2 at Patient Temp 128 mmHg (85-108) 141 mmHg (85-108) Arterial Blood HCO3 25 mmol/L (21-28) 20 mmol/L (21-28) Arterial Blood Base Excess 1 mmol/L (-3-3) -3 mmol/L (-3-3) FiO2 90 40 Sodium Level 142 mmol/L (136-145) Potassium Level 3.9 mmol/L (3.5-5.1) Chloride Level 106 mmol/L (98-107) Carbon Dioxide Level 25 mmol/L (21-32) Anion Gap 11 (6-14) Blood Urea Nitrogen 27 mg/dL (7-20) Creatinine 4.6 mg/dL (0.6-1.0) Estimated GFR (Cockcroft-Gault) 11.3 Glucose Level 123 mg/dL (70-99) Lactic Acid Level 1.2 mmol/L (0.4-2.0) Calcium Level 8.0 mg/dL (8.5-10.1) Phosphorus Level 3.9 mg/dL (2.6-4.7) Albumin 1.8 g/dL (3.4-5.0) Review of Systems Review of Systems ROS unattainable secondary to AMS Assessment and Plan Assessmemt and Plan Acute renal failure-on dialysis, ATN, creatinine was 0.9 on admit, 3.9, 5.0, 6.3 now 4.6 after dialysis acute appendicitis with perforation s/p lap appendectomy 03/15, path acute and chronic appendicitis morbid obesity BMI 44 Persistent nausea h/o gastric sleeve sx 02/2017 hypokalemia EMILY, possible ATN with vanco weakness and debility, nausea, abd pain Plan: Pt in the ICU on vent and NG tube in place dailysis per nephro Pulm, Neuro and ID following Elevated TSH-will check T3/T4 Low dose Synthroid reviewed imaging recheck labs discussed with RN at bedside [facility] per neuro, hope for MRI brain when stable Await subspec input-will cont with their plan of care Will cont to monitor in the ICU Total time 33 minutes Problems: Comment Review of Relevant I have reviewed the following items na (where applicable) has been applied. Labs Laboratory Tests Test 03/25/17 06:05 03/25/17 13:29 03/25/17 13:30 03/25/17 13:42 Sodium Level 145 mmol/L (136-145) 146 mmol/L (136-145) Potassium Level 3.8 mmol/L (3.5-5.1) 3.9 mmol/L (3.5-5.1) Chloride Level 107 mmol/L (98-107) 106 mmol/L (98-107) Carbon Dioxide Level 28 mmol/L (21-32) 25 mmol/L (21-32) Anion Gap 10 (6-14) 15 (6-14) Blood Urea Nitrogen 29 mg/dL (7-20) 30 mg/dL (7-20) Creatinine 6.1 mg/dL (0.6-1.0) 6.3 mg/dL (0.6-1.0) Estimated GFR (Cockcroft-Gault) 8.2 7.9 Glucose Level 96 mg/dL (70-99) 145 mg/dL (70-99) Calcium Level 9.0 mg/dL (8.5-10.1) 9.7 mg/dL (8.5-10.1) Phosphorus Level 4.5 mg/dL (2.6-4.7) Albumin 1.8 g/dL (3.4-5.0) 2.3 g/dL (3.4-5.0) Glucose (Fingerstick) 133 mg/dL (70-99) White Blood Count 21.6 x10^3/uL (4.0-11.0) Red Blood Count 4.16 x10^6/uL (3.50-5.40) Hemoglobin 12.3 g/dL (12.0-15.5) Hematocrit 37.2 % (36.0-47.0) Mean Corpuscular Volume 90 fL (79-100) Mean Corpuscular Hemoglobin 30 pg (25-35) Mean Corpuscular Hemoglobin Concent 33 g/dL (31-37) Red Cell Distribution Width 15.7 % (11.5-14.5) Platelet Count 539 x10^3/uL (140-400) Neutrophils (%) (Auto) 64 % (31-73) Lymphocytes (%) (Auto) 27 % (24-48) Monocytes (%) (Auto) 6 % (0-9) Eosinophils (%) (Auto) 1 % (0-3) Basophils (%) (Auto) 2 % (0-3) Neutrophils # (Auto) 13.8 x10^3uL (1.8-7.7) Lymphocytes # (Auto) 5.9 x10^3/uL (1.0-4.8) Monocytes # (Auto) 1.3 x10^3/uL (0.0-1.1) Eosinophils # (Auto) 0.3 x10^3/uL (0.0-0.7) Basophils # (Auto) 0.4 x10^3/uL (0.0-0.2) Segmented Neutrophils % 61 % (35-66) Band Neutrophils % 4 % (0-9) Lymphocytes % 26 % (24-48) Atypical Lymphocytes % (Manual) 5 % (0-0) Monocytes % 3 % (0-10) Eosinophils % 1 % (0-5) Platelet Estimate Increased (ADEQUATE) Giant Platelets Few Anisocytosis Slight BUN/Creatinine Ratio 5 (6-20) Total Bilirubin 0.3 mg/dL (0.2-1.0) Aspartate Amino Transf (AST/SGOT) 17 U/L (15-37) Alanine Aminotransferase (ALT/SGPT) 20 U/L (14-59) Alkaline Phosphatase 67 U/L (46-116) Creatine Kinase 26 U/L (26-192) Total Protein 7.2 g/dL (6.4-8.2) Albumin/Globulin Ratio 0.5 (1.0-1.7) Thyroid Stimulating Hormone (TSH) 11.117 uIU/mL (0.358-3.74) O2 Saturation 91 % (92-99) Arterial Blood pH 7.26 (7.35-7.45) Arterial Blood pCO2 at Patient Temp 36 mmHg (35-46) Arterial Blood pO2 at Patient Temp 74 mmHg (85-108) Arterial Blood HCO3 16 mmol/L (21-28) Arterial Blood Base Excess -10 mmol/L (-3-3) FiO2 100 Test 03/25/17 17:00 03/25/17 19:30 03/26/17 06:05 03/26/17 09:10 Urine Opiates Screen Neg (NEG) Urine Methadone Screen Neg (NEG) Urine Barbiturates Neg (NEG) Urine Phencyclidine Screen Neg (NEG) Urine Amphetamine/Methamphetamine Neg (NEG) Urine Benzodiazepines Screen Pos (NEG) Urine Cocaine Screen Neg (NEG) Urine Cannabinoids Screen Neg (NEG) Urine Ethyl Alcohol Neg (NEG) O2 Saturation 98 % (92-99) 99 % (92-99) Arterial Blood pH 7.46 (7.35-7.45) 7.43 (7.35-7.45) Arterial Blood pCO2 at Patient Temp 36 mmHg (35-46) 31 mmHg (35-46) Arterial Blood pO2 at Patient Temp 128 mmHg (85-108) 141 mmHg (85-108) Arterial Blood HCO3 25 mmol/L (21-28) 20 mmol/L (21-28) Arterial Blood Base Excess 1 mmol/L (-3-3) -3 mmol/L (-3-3) FiO2 90 40 Sodium Level 142 mmol/L (136-145) Potassium Level 3.9 mmol/L (3.5-5.1) Chloride Level 106 mmol/L (98-107) Carbon Dioxide Level 25 mmol/L (21-32) Anion Gap 11 (6-14) Blood Urea Nitrogen 27 mg/dL (7-20) Creatinine 4.6 mg/dL (0.6-1.0) Estimated GFR (Cockcroft-Gault) 11.3 Glucose Level 123 mg/dL (70-99) Lactic Acid Level 1.2 mmol/L (0.4-2.0) Calcium Level 8.0 mg/dL (8.5-10.1) Phosphorus Level 3.9 mg/dL (2.6-4.7) Albumin 1.8 g/dL (3.4-5.0) Laboratory Tests Test 03/25/17 13:29 03/25/17 13:30 03/25/17 13:42 03/25/17 17:00 Glucose (Fingerstick) 133 mg/dL (70-99) White Blood Count 21.6 x10^3/uL (4.0-11.0) Red Blood Count 4.16 x10^6/uL (3.50-5.40) Hemoglobin 12.3 g/dL (12.0-15.5) Hematocrit 37.2 % (36.0-47.0) Mean Corpuscular Volume 90 fL (79-100) Mean Corpuscular Hemoglobin 30 pg (25-35) Mean Corpuscular Hemoglobin Concent 33 g/dL (31-37) Red Cell Distribution Width 15.7 % (11.5-14.5) Platelet Count 539 x10^3/uL (140-400) Neutrophils (%) (Auto) 64 % (31-73) Lymphocytes (%) (Auto) 27 % (24-48) Monocytes (%) (Auto) 6 % (0-9) Eosinophils (%) (Auto) 1 % (0-3) Basophils (%) (Auto) 2 % (0-3) Neutrophils # (Auto) 13.8 x10^3uL (1.8-7.7) Lymphocytes # (Auto) 5.9 x10^3/uL (1.0-4.8) Monocytes # (Auto) 1.3 x10^3/uL (0.0-1.1) Eosinophils # (Auto) 0.3 x10^3/uL (0.0-0.7) Basophils # (Auto) 0.4 x10^3/uL (0.0-0.2) Segmented Neutrophils % 61 % (35-66) Band Neutrophils % 4 % (0-9) Lymphocytes % 26 % (24-48) Atypical Lymphocytes % (Manual) 5 % (0-0) Monocytes % 3 % (0-10) Eosinophils % 1 % (0-5) Platelet Estimate Increased (ADEQUATE) Giant Platelets Few Anisocytosis Slight Sodium Level 146 mmol/L (136-145) Potassium Level 3.9 mmol/L (3.5-5.1) Chloride Level 106 mmol/L (98-107) Carbon Dioxide Level 25 mmol/L (21-32) Anion Gap 15 (6-14) Blood Urea Nitrogen 30 mg/dL (7-20) Creatinine 6.3 mg/dL (0.6-1.0) Estimated GFR (Cockcroft-Gault) 7.9 BUN/Creatinine Ratio 5 (6-20) Glucose Level 145 mg/dL (70-99) Calcium Level 9.7 mg/dL (8.5-10.1) Total Bilirubin 0.3 mg/dL (0.2-1.0) Aspartate Amino Transf (AST/SGOT) 17 U/L (15-37) Alanine Aminotransferase (ALT/SGPT) 20 U/L (14-59) Alkaline Phosphatase 67 U/L (46-116) Creatine Kinase 26 U/L (26-192) Total Protein 7.2 g/dL (6.4-8.2) Albumin 2.3 g/dL (3.4-5.0) Albumin/Globulin Ratio 0.5 (1.0-1.7) Thyroid Stimulating Hormone (TSH) 11.117 uIU/mL (0.358-3.74) O2 Saturation 91 % (92-99) Arterial Blood pH 7.26 (7.35-7.45) Arterial Blood pCO2 at Patient Temp 36 mmHg (35-46) Arterial Blood pO2 at Patient Temp 74 mmHg (85-108) Arterial Blood HCO3 16 mmol/L (21-28) Arterial Blood Base Excess -10 mmol/L (-3-3) FiO2 100 Urine Opiates Screen Neg (NEG) Urine Methadone Screen Neg (NEG) Urine Barbiturates Neg (NEG) Urine Phencyclidine Screen Neg (NEG) Urine Amphetamine/Methamphetamine Neg (NEG) Urine Benzodiazepines Screen Pos (NEG) Urine Cocaine Screen Neg (NEG) Urine Cannabinoids Screen Neg (NEG) Urine Ethyl Alcohol Neg (NEG) Test 03/25/17 19:30 03/26/17 06:05 03/26/17 09:10 O2 Saturation 98 % (92-99) 99 % (92-99) Arterial Blood pH 7.46 (7.35-7.45) 7.43 (7.35-7.45) Arterial Blood pCO2 at Patient Temp 36 mmHg (35-46) 31 mmHg (35-46) Arterial Blood pO2 at Patient Temp 128 mmHg (85-108) 141 mmHg (85-108) Arterial Blood HCO3 25 mmol/L (21-28) 20 mmol/L (21-28) Arterial Blood Base Excess 1 mmol/L (-3-3) -3 mmol/L (-3-3) FiO2 90 40 Sodium Level 142 mmol/L (136-145) Potassium Level 3.9 mmol/L (3.5-5.1) Chloride Level 106 mmol/L (98-107) Carbon Dioxide Level 25 mmol/L (21-32) Anion Gap 11 (6-14) Blood Urea Nitrogen 27 mg/dL (7-20) Creatinine 4.6 mg/dL (0.6-1.0) Estimated GFR (Cockcroft-Gault) 11.3 Glucose Level 123 mg/dL (70-99) Lactic Acid Level 1.2 mmol/L (0.4-2.0) Calcium Level 8.0 mg/dL (8.5-10.1) Phosphorus Level 3.9 mg/dL (2.6-4.7) Albumin 1.8 g/dL (3.4-5.0) Microbiology 03/17/17 Blood Culture - Final, Complete NO GROWTH AFTER 5 DAYS Medications Current Medications Dexamethasone Sodium Phosphate (Decadron) 20 mg STK-MED ONCE .ROUTE ; Start 03/15/17 at 14:06; Stop 03/15/17 at 14:07; Status DC Ondansetron HCl (Zofran) 4 mg STK-MED ONCE .ROUTE ; Start 03/15/17 at 14:06; Stop 03/15/17 at 14:07; Status DC Propofol 20 ml @ As Directed STK-MED ONCE IV ; Start 03/15/17 at 14:06; Stop at 14:07; Status DC Lidocaine HCl (Lidocaine Pf 2% Vial) 5 ml STK-MED ONCE .ROUTE ; Start 03/15/17 at 14:06; Stop 03/15/17 at 14:07; Status DC Midazolam HCl (Versed) 2 mg STK-MED ONCE .ROUTE ; Start 03/15/17 at 14:06; Stop 03/15/17 at 14:07; Status DC Fentanyl Citrate (Fentanyl 2ml Vial) 100 mcg STK-MED ONCE .ROUTE ; Start at 14:06; Stop 03/15/17 at 14:07; Status DC Rocuronium [place] (Zemuron) 100 mg STK-MED ONCE .ROUTE ; Start 03/15/17 at 14: 07; Stop 03/15/17 at 14:08; Status DC Succinylcholine Chloride (Anectine) 200 mg STK-MED ONCE .ROUTE ; Start 03/15/17 at 14:07; Stop 03/15/17 at 14:08; Status DC Bupivacaine HCl/ Epinephrine Bitart (Marcaine-Epi 0.5%-[id number]) 50 ml STK-MED ONCE .ROUTE Last administered on 03/15/17 14:54; Start 03/15/17 at 13:07; Stop 03/15/17 at 14:08; Status DC Cefoxitin Sodium 2 gm/Sodium Chloride 100 ml @ 200 mls/hr 1X PREOP IV Last administered on 03/15/17 14:55; Start 03/15/17 at 16:00; Stop 03/16/17 at 14:41 ; Status DC Sodium Chloride 1,000 ml @ 125 mls/hr 1X ONCE IV Last administered on 14:15; Start 03/15/17 at 14:15; Stop 03/15/17 at 22:14; Status DC Cefoxitin Sodium 100 ml @ As Directed STK-MED ONCE IV ; Start 03/15/17 at 14:53 ; Stop 03/15/17 at 14:54; Status DC Enoxaparin Sodium (Lovenox 40mg Syringe) 40 mg Q24H SQ ; Start 03/15/17 at 15:30 ; Stop 03/16/17 at 14:38; Status DC Sodium Chloride (Normal Saline Flush) 3 ml QSHIFT PRN IV AFTER MEDS AND BLOOD DRAWS; Start 03/15/17 at 15:30 Ringer's Solution 1,000 ml @ 75 mls/hr [id number] IV Last administered on 04:54; Start 03/15/17 at 15:19 Acetaminophen/ Hydrocodone Bitart (Lortab 5/325) 1 tab PRN Q4HRS PRN PO MILD PAIN Last administered on 03/16/17 02:56; Start 03/15/17 at 15:30; Stop at 13:05; Status DC Ketorolac Tromethamine (Toradol) 15 mg PRN Q6HRS PRN IV PAIN; Start 03/15/17 at 15:30; Stop 03/16/17 at 09:05; Status DC Morphine Sulfate 2 mg PRN Q1HR PRN IV PAIN Last administered on 03/22/17 09: 36; Start 03/15/17 at 15:30 Docusate Sodium (Colace) 100 mg BID PO Last administered on 03/17/17 13:04; Start 03/15/17 at 21:00 Ondansetron HCl (Zofran) 4 mg PRN Q6HRS PRN IV NAUESA, 1ST CHOICE Last administered on 03/22/17 06:34; Start 03/15/17 at 15:30; Stop 03/22/17 at 09: 09; Status DC Piperacillin Sod/ Tazobactam Sod 3.375 gm/Sodium Chloride 50 ml @ 100 mls/hr Q6HRS IV Last administered on 03/21/17 06:20; Start 03/15/17 at 18:00; Stop 03/21/17 at 09:24; Status DC Morphine Sulfate 10 mg STK-MED ONCE .ROUTE ; Start 03/15/17 at 15:32; Stop 03/15 at 15:33; Status DC Ringer's Solution 1,000 ml @ 125 mls/hr Q8H IV Last administered on 03/16/17 00:51; Start 03/15/17 at 15:42; Stop 03/16/17 at 03:41; Status DC Lidocaine HCl (Xylocaine-Mpf 1% Vial) 0.5 ml 1X PRN PRN INJ IV START; Start at 15:45; Stop 03/16/17 at 15:44; Status DC Ringer's Solution 1,000 ml @ 125 mls/hr Q8H IV ; Start 03/15/17 at 15:42; Stop 03/15/17 at 21:41; Status DC Fentanyl Citrate (Fentanyl 2ml Vial) 25 mcg PRN Q5MIN PRN IV Acute Pain; Start 03/15/17 at 15:45; Stop 03/16/17 at 09:05; Status DC Fentanyl Citrate (Fentanyl 2ml Vial) 50 mcg PRN Q5MIN PRN IV Acute Pain Last administered on 03/15/17 15:58; Start 03/15/17 at 15:45; Stop 03/16/17 at 09:05 ; Status DC Morphine Sulfate 2 mg PRN Q10MIN PRN IV Mild Pain; Start 03/15/17 at 15:45; Stop 03/16/17 at 09:05; Status DC Morphine Sulfate 4 mg PRN Q10MIN PRN IV Moderate Pain; Start 03/15/17 at 15:45 ; Stop 03/16/17 at 09:05; Status DC Ondansetron HCl (Zofran) 4 mg PRN Q6HRS PRN IV Nausea, 1st Choice; Start at 15:45; Stop 03/16/17 at 09:05; Status DC Metoclopramide HCl (Reglan) 10 mg PRN Q6HRS PRN IV Nausea/Vomiting, 2nd Choice Last administered on 03/15/17 18:49; Start 03/15/17 at 15:45; Stop 03/16/17 at 15:44; Status DC Diphenhydramine HCl (Benadryl) 12.5 mg PRN Q2HR PRN IV ITCHING; Start 03/15/17 at 15:45; Stop 03/16/17 at 15:44; Status DC Albuterol Sulfate (Ventolin Neb Soln) 2.5 mg PRN 1X PRN NEB Shortness of Breath , Wheezing; Start 03/15/17 at 15:45; Stop 03/16/17 at 15:44; Status DC Dexamethasone Sodium Phosphate (Decadron) 8 mg 1X PRN PRN IV 3RD CHOICE FOR NAUSEA; Start 03/15/17 at 15:45; Stop 03/16/17 at 15:44; Status DC Meperidine HCl (Demerol) 10 mg 1X PERIOP PRN IV SHIVERING; Start 03/15/17 at 15 :45; Stop 03/16/17 at 15:44; Status DC Meperidine HCl (Demerol) 15 mg 1X PERIOP PRN IV SHIVERING; Start 03/15/17 at 15 :45; Stop 03/16/17 at 15:44; Status DC Prochlorperazine Edisylate (Compazine) 10 mg STK-MED ONCE .ROUTE ; Start at 15:48; Stop 03/15/17 at 15:49; Status DC Prochlorperazine Maleate (Compazine) 5 mg 1X PACU PRN PO NAUSEA/VOMITING; Start 03/15/17 at 16:00; Stop 03/19/17 at 19:03; Status DC Hydromorphone HCl (Dilaudid) 0.5 mg PRN Q10MIN PRN IV PAIN Last administered on 03/15/17 16:52; Start 03/15/17 at 16:15; Stop 03/16/17 at 09:05; Status DC Acetaminophen/ Hydrocodone Bitart (Lortab 5/325) 2 tab PRN Q4HRS PRN PO PAIN Last administered on 03/16/17 10:16; Start 03/16/17 at 09:15; Stop 03/16/17 at 13:05; Status DC Multivitamins (Thera M Plus) 1 tab DAILY PO Last administered on 03/26/17 07: 42; Start 03/16/17 at 13:00 Pantoprazole Sodium (Protonix) 40 mg DAILYAC PO Last administered on 03/20/17 08:48; Start 03/16/17 at 13:00; Stop 03/20/17 at 11:14; Status DC Oxycodone/ Acetaminophen (Percocet 7.5/ 325) 1 tab PRN Q4HRS PRN PO PAIN Last administered on 03/23/17 14:59; Start 03/16/17 at 13:15 Morphine Sulfate 4 mg PRN Q2HR PRN IV PAIN Last administered on 03/18/17 14:11 ; Start 03/16/17 at 13:15 Enoxaparin Sodium (Lovenox 40mg Syringe) 40 mg Q12HR SQ Last administered on 08:47; Start 03/16/17 at 21:00; Stop 03/20/17 at 16:57; Status DC Iohexol (Omnipaque 300 Mg/ml) 75 ml 1X ONCE IV Last administered on 03/17/17 08:00; Start 03/17/17 at 08:00; Stop 03/17/17 at 08:01; Status DC Iohexol (Omnipaque 240 Mg/ml) 50 ml 1X ONCE PO Last administered on 03/17/17 08:00; Start 03/17/17 at 08:00; Stop 03/17/17 at 08:01; Status DC Info (Do NOT chart on this entry -- for MONITORING) 1 each PRN DAILY PRN MC SEE COMMENTS; Start 03/17/17 at 07:45; Stop 03/19/17 at 07:44; Status DC Sodium Chloride 1,000 ml @ 1,000 mls/hr 1X ONCE IV Last administered on 08:00; Start 03/17/17 at 08:00; Stop 03/17/17 at 08:59; Status DC Vancomycin HCl (Vanco Per Pharmacy) 1 each PRN DAILY PRN MC SEE COMMENTS Last administered on 03/18/17 14:24; Start 03/17/17 at 08:00; Stop 03/19/17 at 11:10 ; Status DC Fluconazole/ Sodium Chloride 200 ml @ 100 mls/hr Q24H IV Last administered on 03/21/17 08:07; Start 03/17/17 at 09:00; Stop 03/21/17 at 09:24; Status DC Vancomycin HCl 2 gm/Sodium Chloride 500 ml @ 250 mls/hr 1X ONCE IV Last administered on 03/17/17 13:08; Start 03/17/17 at 09:00; Stop 03/17/17 at 10:59 ; Status DC Acetaminophen (Tylenol) 650 mg PRN Q6HRS PRN PO FEVER Last administered on 16:34; Start 03/17/17 at 08:15 Vancomycin HCl 2 gm/Sodium Chloride 500 ml @ 250 mls/hr Q8H IV Last administered on 03/19/17 05:41; Start 03/17/17 at 22:00; Stop 03/19/17 at 11:10 ; Status DC Vancomycin HCl 1 each 1X ONCE MC ; Start 03/18/17 at 13:30; Stop 03/18/17 at 13 :31; Status DC Calcium Carbonate/ Glycine (Tums) 1,000 mg PRN Q4HRS PRN PO INDIGESTION Last administered on 03/17/17 23:57; Start 03/17/17 at 23:45 Potassium Chloride (Klor-Con) 40 meq 1X ONCE PO Last administered on 14:14; Start 03/18/17 at 12:45; Stop 03/18/17 at 12:46; Status DC Vancomycin HCl 1 each 1X ONCE MC ; Start 03/19/17 at 13:30; Stop 03/19/17 at 13 :30; Status DC Sodium Chloride 1,000 ml @ 1,000 mls/hr 1X ONCE IV Last administered on 14:28; Start 03/19/17 at 12:15; Stop 03/19/17 at 13:14; Status DC Pantoprazole Sodium (Protonix) 40 mg BIDAC PO Last administered on 03/25/17 08:31; Start 03/20/17 at 16:30; Stop 03/25/17 at 16:05; Status DC Simethicone (Gas-X) 80 mg PRN AFTMEALHC PRN PO GAS / BLOATING Last administered on 03/22/17 08:55; Start 03/20/17 at 11:15 Al Hydroxide/Mg Hydroxide (Mylanta Plus Xs) 30 ml PRN Q2HR PRN PO HEARTBURN / GAS; Start 03/20/17 at 11:15 Enoxaparin Sodium (Lovenox 40mg Syringe) 40 mg DAILY SQ Last administered on 08:09; Start 03/21/17 at 09:00; Stop 03/22/17 at 12:42; Status DC Fluconazole/ Sodium Chloride 100 ml @ 100 mls/hr Q24H IV ; Start 03/22/17 at 09:00; Stop 03/22/17 at 09:00; Status DC Piperacillin Sod/ Tazobactam Sod 3.375 gm/Sodium Chloride 50 ml @ 100 mls/hr Q12HR IV ; Start 03/21/17 at 21:00; Stop 03/21/17 at 21:00; Status DC Fluconazole/ Sodium Chloride 100 ml @ 100 mls/hr Q24H IV Last administered on 03/22/17 09:30; Start 03/22/17 at 09:00; Stop 03/23/17 at 10:05; Status DC Piperacillin Sod/ Tazobactam Sod 2.25 gm/Sodium Chloride 50 ml @ 100 mls/hr Q6HRS IV Last administered on 03/23/17 05:58; Start 03/21/17 at 12:00; Stop 03/23/17 at 10:05; Status DC Ondansetron HCl (Zofran) 8 mg PRN Q8HRS PRN IV NAUESA, 1ST CHOICE Last administered on 03/25/17 06:17; Start 03/22/17 at 09:15 Prochlorperazine Edisylate (Compazine) 10 mg PRN Q8HRS PRN IV NAUSEA/VOMITING - 2nd choice Last administered on 03/25/17 10:23; Start 03/22/17 at 09:15 Amino Acids/ Glycerin/ Electrolytes 1,000 ml @ 80 mls/hr [id number] IV Last administered on 03/26/17 04:13; Start 03/22/17 at 11:45 Heparin Sodium (Porcine) (Heparin Sq) 5,000 unit Q8HRS SQ Last administered on 03/25/17 06:07; Start 03/22/17 at 14:00; Stop 03/25/17 at 08:45; Status DC Loperamide HCl (Imodium) 2 mg PRN Q15MIN PRN PO DIARRHEA; Start 03/23/17 at 08 :00 Amoxicillin/ Clavulanate Potassium (Augmentin 500/ 125mg) 1 tab BID PO Last administered on 03/25/17 08:31; Start 03/23/17 at 10:30; Stop 03/25/17 at 14 :03; Status DC Promethazine HCl (Phenergan) 25 mg PRN Q6HRS PRN [place] NAUSEA/VOMITING; Start 05/28 at 15:15 Furosemide (Lasix) 80 mg 1X ONCE IVP Last administered on 03/24/17 12:13; Start 03/24/17 at 11:30; Stop 03/24/17 at 11:31; Status DC Iohexol (Omnipaque 240 Mg/ml) 50 ml 1X ONCE PO Last administered on 09:30; Start 03/25/17 at 09:30; Stop 03/25/17 at 09:31; Status DC Iohexol (Omnipaque 240 Mg/ml) 50 ml 1X ONCE PO Last administered on 12:32; Start 03/25/17 at 12:30; Stop 03/25/17 at 12:31; Status DC Lorazepam (Ativan) 1 mg 1X ONCE IV Last administered on 03/25/17 13:40; Start 03/25/17 at 14:00; Stop 03/25/17 at 14:01; Status DC Piperacillin Sod/ Tazobactam Sod 2.25 gm/Sodium Chloride 50 ml @ 100 mls/hr Q8HRS IV Last administered on 03/26/17 06:26; Start 03/25/17 at 15:00 Levetiracetam 500 mg/Sodium Chloride 100 ml @ 400 mls/hr Q12HR IV ; Start at 15:00; Stop 03/25/17 at 15:00; Status DC Lorazepam (Ativan) 2 mg PRN Q1HR PRN IV SEIZURE Last administered on 14:30; Start 03/25/17 at 14:15; Stop 03/25/17 at 15:27; Status DC Levetiracetam 750 mg/Sodium Chloride 107.5 ml @ 400 mls/hr Q12HR IV Last administered on 03/26/17 07:41; Start 03/25/17 at 15:00 Digoxin (Lanoxin) 500 mcg 1X ONCE IV Last administered on 03/25/17 14:34; Start 03/25/17 at 14:30; Stop 03/25/17 at 14:31; Status DC Norepinephrine Bitartrate 250 ml @ 0 mls/hr CONT PRN IV SEE I/O RECORD Last administered on 03/25/17 21:53; Start 03/25/17 at 14:30 Sodium Chloride 1,000 ml @ 1,000 mls/hr 1X ONCE IV Last administered on 03/25 15:38; Start 03/25/17 at 15:00; Stop 03/25/17 at 15:59; Status DC Lorazepam (Ativan) 2 mg PRN Q4HRS PRN IV SEIZURE Last administered on 15:55; Start 03/25/17 at 15:30 Propofol 100 ml @ As Directed STK-MED ONCE IV ; Start 03/25/17 at 15:28; Stop 03/25/17 at 15:29; Status DC Propofol 100 ml @ 0 mls/hr CONT PRN IV SEE I/O RECORD Last administered on 12:21; Start 03/25/17 at 15:45 Sodium Bicarbonate 150 meq 1X ONCE IV Last administered on 03/25/17 15:43; Start 03/25/17 at 16:00; Stop 03/25/17 at 16:01; Status DC Adenosine (Adenocard) 6 mg 1X ONCE IV Last administered on 03/25/17 15:42; Start 03/25/17 at 16:15; Stop 03/25/17 at 16:16; Status DC Adenosine (Adenocard) 12 mg 1X ONCE IV Last administered on 03/25/17 15:48; Start 03/25/17 at 16:00; Stop 03/25/17 at 16:01; Status DC Midazolam HCl (Versed) 5 mg 1X ONCE IV Last administered on 03/25/17 15:48; Start 03/25/17 at 16:00; Stop 03/25/17 at 16:01; Status DC Pantoprazole Sodium (Protonix Vial) 40 mg BID IVP Last administered on 07:41; Start 03/25/17 at 21:00 Sodium Chloride 1,000 ml @ 1,000 mls/hr Q1H PRN IV hypotension; Start at 16:30; Stop 03/25/17 at 22:29; Status DC Sodium Chloride (Normal Saline Flush) 10 ml 1X PRN PRN IV AP catheter pack; Start 03/25/17 at 16:30; Stop 03/26/17 at 08:54; Status DC Sodium Chloride (Normal Saline Flush) 10 ml 1X PRN PRN IV THIOKOL OPERATOR catheter pack; Start 03/25/17 at 16:30; Stop 03/26/17 at 08:54; Status DC Sodium Chloride 1,000 ml @ 400 mls/hr Q2H30M PRN IV PATENCY; Start 03/25/17 at 16:30; Stop 03/26/17 at 04:29; Status DC Info (PHARMACY MONITORING -- do not chart) 1 each PRN DAILY PRN MC SEE COMMENTS ; Start 03/25/17 at 16:30 Info (PHARMACY MONITORING -- do not chart) 1 each PRN DAILY PRN MC SEE COMMENTS ; Start 03/25/17 at 16:30; Status UNV Acetaminophen (Tylenol) 650 mg PRN Q6HRS PRN PEG MILD PAIN / TEMP Last administered on 03/25/17t 18:44; Start 03/25/17 at 18:30 Fentanyl Citrate 30 ml @ 0 mls/hr CONT PRN PRN IV PROTOCOL; Start 03/25/17 at 19:15 Sodium Chloride 1,000 ml @ 1,000 mls/hr Q1H PRN IV hypotension; Start at 08:46; Stop 03/26/17 at 14:45 Sodium Chloride (Normal Saline Flush) 10 ml 1X PRN PRN IV AP catheter pack; Start 03/26/17 at 09:00; Stop 03/27/17 at 08:59 Sodium Chloride (Normal Saline Flush) 10 ml 1X PRN PRN IV THIOKOL OPERATOR catheter pack; Start 03/26/17 at 09:00; Stop 03/27/17 at 08:59 Sodium Chloride 1,000 ml @ 400 mls/hr Q2H30M PRN IV PATENCY; Start 03/26/17 at 08:46; Stop 03/26/17 at 20:45 Info (PHARMACY MONITORING -- do not chart) 1 each PRN DAILY PRN MC SEE COMMENTS ; Start 03/26/17 at 09:00; Status UNV Info (PHARMACY MONITORING -- do not chart) 1 each PRN DAILY PRN MC SEE COMMENTS ; Start 03/26/17 at 09:00; Status UNV Active Scripts Active Reported Multivitamins (Multivitamin) 1 Each Tablet 1 Tab PO DAILY Omeprazole 20 Mg Capsule.dr 1 Cap PO DAILY Vitals/I & O Vital Sign - Last 24 Hours 03/25/17 03/25/17 03/25/17 03/25/17 13:34 14:00 14:15 14:15 Pulse 166 182 Resp 29 30 B/P (MAP) 135/92 (106) 90/63 (72) Pulse Ox 100 89 O2 Delivery Ventilator Ventilator Mechanical Ventilator Ventilator 03/25/17 03/25/17 03/25/17 03/25/17 14:34 15:00 15:15 15:45 Temp 99.5 99.5 Pulse 180 178 174 140 Resp 34 30 B/P (MAP) 90/62 117/96 (103) 158/86 (110) 118/70 (86) Pulse Ox 87 93 O2 Delivery Ventilator Ventilator 03/25/17 03/25/17 03/25/17 03/25/17 16:00 16:00 17:00 17:00 Temp 99.4 99.4 Pulse 120 128 122 122 Resp 27 32 B/P (MAP) 114/74 (87) 112/72 (85) 112/76 (88) 109/73 (85) Pulse Ox 97 99 O2 Delivery Ventilator Ventilator 03/25/17 03/25/17 03/25/17 03/25/17 17:20 18:00 18:20 19:00 Pulse 132 118 112 Resp 30 30 B/P (MAP) 114/65 (81) 119/76 (90) 91/56 (68) Pulse Ox 98 98 98 O2 Delivery Ventilator Ventilator Ventilator 03/25/17 03/25/17 03/25/17 03/25/17 19:00 19:51 20:00 20:00 B/P (MAP) Pulse Ox 98 O2 Delivery Ventilator Mechanical Ventilator 03/25/17 03/25/17 03/25/17 03/25/17 20:00 21:00 21:00 21:00 Temp 99.0 99.0 Pulse 105 97 Resp 25 18 B/P (MAP) 90/54 (66) 89/54 (66) Pulse Ox 96 98 99 O2 Delivery Ventilator Ventilator Ventilator 03/25/17 03/25/17 03/25/17 03/25/17 22:00 22:00 23:00 23:00 Pulse 94 88 Resp 22 23 B/P (MAP) 94/57 (69) 91/53 (66) Pulse Ox 100 100 O2 Delivery Ventilator Ventilator 03/25/17 03/26/17 03/26/17 03/26/17 23:49 00:00 00:00 00:00 Temp 99.4 99.4 Pulse 77 Resp 27 B/P (MAP) 100/63 (75) Pulse Ox 98 100 O2 Delivery Ventilator Mechanical Ventilator Ventilator 03/26/17 03/26/17 03/26/17 03/26/17 01:00 01:00 01:12 02:00 Pulse 83 80 Resp 21 16 B/P (MAP) 90/65 (73) 95/69 (78) Pulse Ox 100 98 100 O2 Delivery Ventilator Ventilator Ventilator 03/26/17 03/26/17 03/26/17 03/26/17 02:00 03:00 03:00 03:23 Pulse 82 Resp 16 B/P (MAP) 107/62 (77) Pulse Ox 100 100 O2 Delivery Ventilator Ventilator 03/26/17 03/26/17 03/26/17 03/26/17 04:00 04:00 04:00 05:00 Temp 99.0 99.0 Pulse 86 84 Resp 22 18 B/P (MAP) 111/66 (81) 116/64 (81) Pulse Ox 100 99 O2 Delivery Ventilator Mechanical Ventilator Ventilator 03/26/17 03/26/17 03/26/17 03/26/17 05:00 05:12 06:00 06:00 Pulse 81 Resp 16 B/P (MAP) 121/71 (88) Pulse Ox 100 100 O2 Delivery Ventilator Ventilator 03/26/17 03/26/17 03/26/17 03/26/17 07:00 07:00 07:57 08:00 Temp 99.1 99.1 Pulse 80 80 79 Resp 16 17 B/P (MAP) 111/78 (89) 111/78 (89) 97/78 (84) Pulse Ox 100 100 O2 Delivery Ventilator Mechanical Ventilator Ventilator 03/26/17 03/26/17 03/26/17 03/26/17 08:02 08:53 09:00 09:00 Pulse 80 81 81 Resp 16 B/P (MAP) 97/77 (84) 103/84 (90) 103/84 (90) Pulse Ox 100 100 O2 Delivery Ventilator Ventilator 03/26/17 03/26/17 03/26/17 03/26/17 10:00 10:00 10:10 10:50 Pulse 85 85 84 82 Resp 17 16 16 B/P (MAP) 129/88 (102) 129/88 (102) 127/77 (94) 116/73 (87) Pulse Ox 100 100 100 O2 Delivery Ventilator Ventilator Ventilator 03/26/17 03/26/17 03/26/17 03/26/17 11:00 11:40 11:47 11:47 Temp 99.4 99.4 Pulse 92 91 91 Resp 16 B/P (MAP) 120/78 (92) 120/74 (89) 118/73 (88) Pulse Ox 100 O2 Delivery Ventilator Mechanical Ventilator 03/26/17 03/26/17 03/26/17 11:55 12:00 12:50 Pulse 100 101 Resp 18 16 B/P (MAP) 114/76 (89) 107/69 (82) Pulse Ox 100 100 100 O2 Delivery Ventilator Ventilator Ventilator Intake and Output 03/26/17 03/26/17 03/27/17 15:00 23:00 07:00 Intake Total 0 ml Output Total 700 ml Balance -700 ml FLAKO WATT III DO Mar 26, 2017 13:05
[2017-03-26 13:14] LABS: BASO # 0.2 x10^3/uL (0.0-0.2); BASO % 1 % (0-3); EOS % 0 % (0-3); HEMOGLOBIN 10.8 g/dL (12.0-15.5); LYMPH # 3.7 x10^3/uL (1.0-4.8); LYMPH % 22 % (24-48); MEAN CORPUSCULAR HEMOGLOBIN 30 pg (25-35); MEAN CORPUSCULAR HGB CONC 33 g/dL (31-37); MEAN CORPUSCULAR VOLUME 91 fL (79-100); MONO % 6 % (0-9); NEUT % 70 % (31-73); PLATELET COUNT 460 x10^3/uL (140-400); RED BLOOD COUNT 3.64 x10^6/uL (3.50-5.40); RED CELL DISTRIBUTION WIDTH 15.8 % (11.5-14.5); WHITE BLOOD COUNT 17.3 x10^3/uL (4.0-11.0)
[2017-03-26 13:52] LABS: FREE T4 1.24 ng/dL (0.76-1.46)
--- NOTE | 2017-03-26 14:03 | PDOC ---
PROGRESS NOTES Assessment Assessment Seizures, new onset, provoked. Metabolic encephalopathy. Acute respiratory failure. Acute renal failure. Leukocytosis. Acute appendicitis s/p appendectomy. Hypoalbuminemia. DM. Obesity. RECOMMENDATIONS/PLAN: Ativan 2 mg IV PRN seizure. Keppra 750 mg IV q12h. If still has seizures, add Vimpat 100 mg IV q12h. Brain MRI wo contrast when stable. No contrast due to renal failure. Consulted Nephrology for dialysis. Consulted Cardiology. Treat medical and surgical diseases. [place] w/o contrast on 03/25/17: No acute findings. HISTORY OF THE PRESENT ILLNESS: 26-y-old female patient had abdominal pain to come to [facility]. She was found to have appendicitis and was treated surgically as appendectomy. She had seizures and coma and was coded. Neurology was called for consultation due to seizures. No history of seizure. She also has acute renal failure that may provoke seizures as well. No seizures reported on 03/26/17. 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 Gastroesophageal reflux disease. Status post laparoscopic appendectomy on March 15. ALLERGIES: No known drug allergies. MEDICATIONS: Refer to MAR. SOCIAL HISTORY: Does not smoke. FAMILY HISTORY: Diabetes mellitus. REVIEW OF SYSTEMS: Constitutional: Obesity. Head: No recent traumatic brain or head injury. Skin: No edema, or rash. Ear: No infection, tinnitus. Eyes: No vision loss or color blindness. Nose: No bleeding or purulent discharges. Hearing: No hearing decrease. Neck: No injury. Breast: No history of cancer, masses,or discharges. Cardiac: No MD, arrhythmia. Pulmonary: No COPD. GI: GERD. Urinary/genital: UTI. Endocrinologic: Obesity. Skeletomuscular: No muscular atrophy, deformity. Neurological: see HP. Psychiatric: Denies drug use/abuse. Otherwise, not [id number] review of systems. PHYSICAL EXAMINATION: General appearance is in coma. HEENT: Normocephalic and nontraumatic. Eyes, nose, ears, and throat are unremarkable. Neck is supple. No lymphadenopathy. No crepitus. Cardiovascular: S1, S2, regular rate and rhythm. Pulmonary: Breath sounds to auscultation bilaterally. Abdomen: Bowel sounds are weak. Extremities: No rash, lesions, or edema. No restriction of range of motion NEUROLOGICAL EXAMINATION: Unresponsiveness. Not oriented to time, place and person. Pupils 2-3 mm reaction to light stimulation. EOMI not elicited. CN: no focal findings. Muscle tone: decreased. Muscle strength: no movements noted at this time. DTR: 0-1 Plantar reflex: No response bilaterally Gait: Unable to walk. Sensory exam: no response to stimuli. Not able to access cerebellar signs this time. F-T-N test not performed due to unresponsiveness. Objective Objective Vital Signs Date Time Temp Pulse Resp B/P (MAP) Pulse Ox O2 Delivery O2 Flow Rate FiO2 03/26/17 13:51 100 Ventilator 03/26/17 13:00 96 103/64 (77) 03/26/17 12:50 16 03/26/17 11:40 99.4 99.4 03/25/17 08:00 2.0 Intake and Output 03/27/17 07:00 Intake Total 0 ml Output Total 785 ml Balance -785 ml Intake Oral 0 ml Output Urine Total 785 ml # Bowel Movements 2 Vitals Signs Vitals VS - Last 72 Hours, by Label Date Time Temp Pulse Resp B/P (MAP) Pulse Ox O2 Delivery O2 Flow Rate FiO2 03/26/17 13:51 100 Ventilator 03/26/17 13:00 96 103/64 (77) 03/26/17 12:50 101 16 107/69 (82) 100 Ventilator 03/26/17 12:00 100 18 114/76 (89) 100 Ventilator 03/26/17 11:55 100 Ventilator 03/26/17 11:47 91 118/73 (88) 03/26/17 11:47 Mechanical Ventilator 03/26/17 11:40 99.4 91 16 120/74 (89) 100 Ventilator 99.4 03/26/17 11:00 92 120/78 (92) 03/26/17 10:50 82 16 116/73 (87) 100 Ventilator 03/26/17 10:10 84 16 127/77 (94) 100 Ventilator 03/26/17 10:00 85 17 129/88 (102) 100 Ventilator 03/26/17 10:00 85 129/88 (102) 03/26/17 09:00 81 103/84 (90) 03/26/17 09:00 81 16 103/84 (90) 100 Ventilator 03/26/17 08:53 100 Ventilator 03/26/17 08:02 80 97/77 (84) 03/26/17 08:00 79 17 97/78 (84) 100 Ventilator 03/26/17 07:57 Mechanical Ventilator 03/26/17 07:00 80 111/78 (89) 03/26/17 07:00 99.1 80 16 111/78 (89) 100 Ventilator 99.1 03/26/17 06:00 03/26/17 06:00 81 16 121/71 (88) 100 Ventilator 03/26/17 05:12 100 Ventilator 03/26/17 05:00 03/26/17 05:00 84 18 116/64 (81) 99 Ventilator 03/26/17 04:00 03/26/17 04:00 Mechanical Ventilator 03/26/17 04:00 99.0 86 22 111/66 (81) 100 Ventilator 99.0 03/26/17 03:23 100 Ventilator 03/26/17 03:00 03/26/17 03:00 82 16 107/62 (77) 100 Ventilator 03/26/17 02:00 03/26/17 02:00 80 16 95/69 (78) 100 Ventilator 03/26/17 01:12 98 Ventilator 03/26/17 01:00 83 21 90/65 (73) 100 Ventilator 03/26/17 01:00 03/26/17 00:00 99.4 77 27 100/63 (75) 100 Ventilator 99.4 03/26/17 00:00 Mechanical Ventilator 03/26/17 00:00 03/25/17 23:49 98 Ventilator 03/25/17 23:00 88 23 91/53 (66) 100 Ventilator 03/25/17 23:00 03/25/17 22:00 94 22 94/57 (69) 100 Ventilator 03/25/17 22:00 03/25/17 21:00 03/25/17 21:00 97 18 89/54 (66) 99 Ventilator 03/25/17 21:00 98 Ventilator 03/25/17 20:00 99.0 105 25 90/54 (66) 96 Ventilator 99.0 03/25/17 20:00 03/25/17 20:00 Mechanical Ventilator 03/25/17 19:51 98 Ventilator 03/25/17 19:00 03/25/17 19:00 112 30 91/56 (68) 98 Ventilator 03/25/17 18:20 118 119/76 (90) 10/14/17 18:00 132 30 114/65 (81) 98 Ventilator 03/25/17 17:20 98 Ventilator 03/25/17 17:00 99.4 122 32 109/73 (85) 99 Ventilator 99.4 03/25/17 17:00 122 112/76 (88) 03/25/17 16:00 128 27 112/72 (85) 97 Ventilator 03/25/17 16:00 120 114/74 (87) 03/25/17 15:45 140 30 118/70 (86) 93 Ventilator 03/25/17 15:15 174 158/86 (110) 03/25/17 15:00 99.5 178 34 117/96 (103) 87 Ventilator 99.5 03/25/17 14:34 180 90/62 03/25/17 14:15 182 30 90/63 (72) 89 Ventilator 03/25/17 14:15 Mechanical Ventilator 03/25/17 14:00 166 29 135/92 (106) 100 Ventilator 03/25/17 13:34 Ventilator 03/25/17 11:00 97.5 87 20 133/90 (104) 92 Room Air 97.5 03/25/17 08:00 Room Air 2.0 03/25/17 07:00 97.9 80 20 130/82 (98) 94 Room Air 97.9 Laboratory Laboratory Laboratory Tests Test 03/25/17 17:00 03/25/17 19:30 03/26/17 06:05 03/26/17 09:10 Urine Opiates Screen Neg (NEG) Urine Methadone Screen Neg (NEG) Urine Barbiturates Neg (NEG) Urine Phencyclidine Screen Neg (NEG) Urine Amphetamine/Methamphetamine Neg (NEG) Urine Benzodiazepines Screen Pos (NEG) Urine Cocaine Screen Neg (NEG) Urine Cannabinoids Screen Neg (NEG) Urine Ethyl Alcohol Neg (NEG) O2 Saturation 98 % (92-99) 99 % (92-99) Arterial Blood pH 7.46 (7.35-7.45) 7.43 (7.35-7.45) Arterial Blood pCO2 at Patient Temp 36 mmHg (35-46) 31 mmHg (35-46) Arterial Blood pO2 at Patient Temp 128 mmHg (85-108) 141 mmHg (85-108) Arterial Blood HCO3 25 mmol/L (21-28) 20 mmol/L (21-28) Arterial Blood Base Excess 1 mmol/L (-3-3) -3 mmol/L (-3-3) FiO2 90 40 White Blood Count 17.3 x10^3/uL (4.0-11.0) Red Blood Count 3.64 x10^6/uL (3.50-5.40) Hemoglobin 10.8 g/dL (12.0-15.5) Hematocrit 33.0 % (36.0-47.0) Mean Corpuscular Volume 91 fL (79-100) Mean Corpuscular Hemoglobin 30 pg (25-35) Mean Corpuscular Hemoglobin Concent 33 g/dL (31-37) Red Cell Distribution Width 15.8 % (11.5-14.5) Platelet Count 460 x10^3/uL (140-400) Neutrophils (%) (Auto) 70 % (31-73) Lymphocytes (%) (Auto) 22 % (24-48) Monocytes (%) (Auto) 6 % (0-9) Eosinophils (%) (Auto) 0 % (0-3) Basophils (%) (Auto) 1 % (0-3) Neutrophils # (Auto) 12.2 x10^3uL (1.8-7.7) Lymphocytes # (Auto) 3.7 x10^3/uL (1.0-4.8) Monocytes # (Auto) 1.1 x10^3/uL (0.0-1.1) Eosinophils # (Auto) 0.1 x10^3/uL (0.0-0.7) Basophils # (Auto) 0.2 x10^3/uL (0.0-0.2) Sodium Level 142 mmol/L (136-145) Potassium Level 3.9 mmol/L (3.5-5.1) Chloride Level 106 mmol/L (98-107) Carbon Dioxide Level 25 mmol/L (21-32) Anion Gap 11 (6-14) Blood Urea Nitrogen 27 mg/dL (7-20) Creatinine 4.6 mg/dL (0.6-1.0) Estimated GFR (Cockcroft-Gault) 11.3 Glucose Level 123 mg/dL (70-99) Lactic Acid Level 1.2 mmol/L (0.4-2.0) Calcium Level 8.0 mg/dL (8.5-10.1) Phosphorus Level 3.9 mg/dL (2.6-4.7) Albumin 1.8 g/dL (3.4-5.0) Free Thyroxine 1.24 ng/dL (0.76-1.46) Free Triiodothyronine (T3) pg/mL 1.67 pg/mL (2.18-3.98) Microbiology 03/17/17 Blood Culture - Final, Complete NO GROWTH AFTER 5 DAYS Medication Medications Current Medications Acetaminophen (Tylenol) 650 mg PRN Q6HRS PRN PEG MILD PAIN / TEMP Last administered on 03/25/17 18:44; Start 03/25/17 at 18:30 Adenosine (Adenocard) 6 mg 1X ONCE IV Last administered on 03/25/17 15:42; Start 03/25/17 at 16:15; Stop 03/25/17 at 16:16; Status DC Adenosine (Adenocard) 12 mg 1X ONCE IV Last administered on 03/25/17 15:48; Start 03/25/17 at 16:00; Stop 03/25/17 at 16:01; Status DC Digoxin (Lanoxin) 500 mcg 1X ONCE IV Last administered on 03/25/17 14:34; Start 03/25/17 at 14:30; Stop 03/25/17 at 14:31; Status DC Fentanyl Citrate 30 ml @ 0 mls/hr CONT PRN PRN IV PROTOCOL; Start 03/25/17 at 19:15 Info (PHARMACY MONITORING -- do not chart) 1 each PRN DAILY PRN MC SEE COMMENTS ; Start 03/25/17 at 16:30 Info (PHARMACY MONITORING -- do not chart) 1 each PRN DAILY PRN MC SEE COMMENTS ; Start 03/25/17 at 16:30; Status UNV Info (PHARMACY MONITORING -- do not chart) 1 each PRN DAILY PRN MC SEE COMMENTS ; Start 03/26/17 at 09:00; Status UNV Info (PHARMACY MONITORING -- do not chart) 1 each PRN DAILY PRN MC SEE COMMENTS ; Start 03/26/17 at 09:00; Status UNV Levetiracetam 500 mg/Sodium Chloride 100 ml @ 400 mls/hr Q12HR IV ; Start at 15:00; Stop 03/25/17 at 15:00; Status DC Levetiracetam 750 mg/Sodium Chloride 107.5 ml @ 400 mls/hr Q12HR IV Last administered on 03/26/17 07:41; Start 03/25/17 at 15:00 Levothyroxine Sodium 15 mcg/ Sodium Chloride 5 ml @ 100 mls/hr DAILY IVP ; Start 03/26/17 at 14:00 Lorazepam (Ativan) 2 mg PRN Q1HR PRN IV SEIZURE Last administered on 14:30; Start 03/25/17 at 14:15; Stop 03/25/17 at 15:27; Status DC Lorazepam (Ativan) 2 mg PRN Q4HRS PRN IV SEIZURE Last administered on 15:55; Start 03/25/17 at 15:30 Midazolam HCl (Versed) 5 mg 1X ONCE IV Last administered on 03/25/17 15:48; Start 03/25/17 at 16:00; Stop 03/25/17 at 16:01; Status DC Norepinephrine Bitartrate 250 ml @ 0 mls/hr CONT PRN IV SEE I/O RECORD Last administered on 03/25/17 21:53; Start 03/25/17 at 14:30 Pantoprazole Sodium (Protonix Vial) 40 mg BID IVP Last administered on 07:41; Start 03/25/17 at 21:00 Piperacillin Sod/ Tazobactam Sod 2.25 gm/Sodium Chloride 50 ml @ 100 mls/hr Q8HRS IV Last administered on 03/26/17 13:29; Start 03/25/17 at 15:00 Propofol 100 ml @ As Directed STK-MED ONCE IV ; Start 03/25/17 at 15:28; Stop 03/25/17 at 15:29; Status DC Propofol 100 ml @ 0 mls/hr CONT PRN IV SEE I/O RECORD Last administered on 12:21; Start 03/25/17 at 15:45 Sodium Bicarbonate 150 meq 1X ONCE IV Last administered on 03/25/17 15:43; Start 03/25/17 at 16:00; Stop 03/25/17 at 16:01; Status DC Sodium Chloride 1,000 ml @ 400 mls/hr Q2H30M PRN IV PATENCY; Start 03/25/17 at 16:30; Stop 03/26/17 at 04:29; Status DC Sodium Chloride 1,000 ml @ 400 mls/hr Q2H30M PRN IV PATENCY; Start 03/26/17 at 08:46; Stop 03/26/17 at 20:45 Sodium Chloride 1,000 ml @ 1,000 mls/hr 1X ONCE IV Last administered on 03/25t 15:38; Start 03/25/17 at 15:00; Stop 03/25/17 at 15:59; Status DC Sodium Chloride 1,000 ml @ 1,000 mls/hr Q1H PRN IV hypotension; Start at 16:30; Stop 03/25/17 at 22:29; Status DC Sodium Chloride 1,000 ml @ 1,000 mls/hr Q1H PRN IV hypotension; Start at 08:46; Stop 03/26/17 at 14:45 Sodium Chloride (Normal Saline Flush) 10 ml 1X PRN PRN IV AP catheter pack; Start 03/25/17 at 16:30; Stop 03/26/17 at 08:54; Status DC Sodium Chloride (Normal Saline Flush) 10 ml 1X PRN PRN IV ASSEMBLER INSULATOR catheter pack; Start 03/25/17 at 16:30; Stop 03/26/17 at 08:54; Status DC Sodium Chloride (Normal Saline Flush) 10 ml 1X PRN PRN IV AP catheter pack; Start 03/26/17 at 09:00; Stop 03/27/17 at 08:59 Sodium Chloride (Normal Saline Flush) 10 ml 1X PRN PRN IV ASSEMBLER INSULATOR catheter pack; Start 03/26/17 at 09:00; Stop 03/27/17 at 08:59 Comment Review of Relevant I have reviewed the following items na (where applicable) has been applied. EMILY BENEDICT MD Mar 26, 2017 14:03
[2017-03-26] MEDS: LEVOTHYROXINE SODIUM IVP SCH (14:05)
[2017-03-26] MEDS: NORMAL SALINE IVP SCH (14:05)
[2017-03-26 14:25] LABS: HCO3 ABG 24 mmol/L (21-28); PCO2 ABG 34 mmHg (35-46); PH ABG 7.48 (7.35-7.45); PO2 ABG 115 mmHg (85-108); SAT O2 ABG 98 % (92-99)
[2017-03-26 14:28] LABS: FIO2 ABG 40
--- NOTE | 2017-03-26 15:02 | PDOC ---
PULMONARY PROGRESS NOTES Subjective OFF LEVO DID NOT DO WELL ON TRIAL NOW SEDATED Vitals Vital Signs Date Time Temp Pulse Resp B/P (MAP) Pulse Ox O2 Delivery O2 Flow Rate FiO2 03/26/17 14:00 98 103/72 (82) 03/26/17 14:00 27 98 Ventilator 03/26/17 11:40 99.4 99.4 03/25/17 08:00 2.0 Lungs: Clear Cardiovascular: S1, S2 Abdomen: Soft Extremities: No Edema Skin: Warm Labs Laboratory Tests Test 03/25/17 06:05 03/25/17 13:29 03/25/17 13:30 03/25/17 13:42 Sodium Level 145 mmol/L (136-145) 146 mmol/L (136-145) Potassium Level 3.8 mmol/L (3.5-5.1) 3.9 mmol/L (3.5-5.1) Chloride Level 107 mmol/L (98-107) 106 mmol/L (98-107) Carbon Dioxide Level 28 mmol/L (21-32) 25 mmol/L (21-32) Anion Gap 10 (6-14) 15 (6-14) Blood Urea Nitrogen 29 mg/dL (7-20) 30 mg/dL (7-20) Creatinine 6.1 mg/dL (0.6-1.0) 6.3 mg/dL (0.6-1.0) Estimated GFR (Cockcroft-Gault) 8.2 7.9 Glucose Level 96 mg/dL (70-99) 145 mg/dL (70-99) Calcium Level 9.0 mg/dL (8.5-10.1) 9.7 mg/dL (8.5-10.1) Phosphorus Level 4.5 mg/dL (2.6-4.7) Albumin 1.8 g/dL (3.4-5.0) 2.3 g/dL (3.4-5.0) Glucose (Fingerstick) 133 mg/dL (70-99) White Blood Count 21.6 x10^3/uL (4.0-11.0) Red Blood Count 4.16 x10^6/uL (3.50-5.40) Hemoglobin 12.3 g/dL (12.0-15.5) Hematocrit 37.2 % (36.0-47.0) Mean Corpuscular Volume 90 fL (79-100) Mean Corpuscular Hemoglobin 30 pg (25-35) Mean Corpuscular Hemoglobin Concent 33 g/dL (31-37) Red Cell Distribution Width 15.7 % (11.5-14.5) Platelet Count 539 x10^3/uL (140-400) Neutrophils (%) (Auto) 64 % (31-73) Lymphocytes (%) (Auto) 27 % (24-48) Monocytes (%) (Auto) 6 % (0-9) Eosinophils (%) (Auto) 1 % (0-3) Basophils (%) (Auto) 2 % (0-3) Neutrophils # (Auto) 13.8 x10^3uL (1.8-7.7) Lymphocytes # (Auto) 5.9 x10^3/uL (1.0-4.8) Monocytes # (Auto) 1.3 x10^3/uL (0.0-1.1) Eosinophils # (Auto) 0.3 x10^3/uL (0.0-0.7) Basophils # (Auto) 0.4 x10^3/uL (0.0-0.2) Segmented Neutrophils % 61 % (35-66) Band Neutrophils % 4 % (0-9) Lymphocytes % 26 % (24-48) Atypical Lymphocytes % (Manual) 5 % (0-0) Monocytes % 3 % (0-10) Eosinophils % 1 % (0-5) Platelet Estimate Increased (ADEQUATE) Giant Platelets Few Anisocytosis Slight BUN/Creatinine Ratio 5 (6-20) Total Bilirubin 0.3 mg/dL (0.2-1.0) Aspartate Amino Transf (AST/SGOT) 17 U/L (15-37) Alanine Aminotransferase (ALT/SGPT) 20 U/L (14-59) Alkaline Phosphatase 67 U/L (46-116) Creatine Kinase 26 U/L (26-192) Total Protein 7.2 g/dL (6.4-8.2) Albumin/Globulin Ratio 0.5 (1.0-1.7) Thyroid Stimulating Hormone (TSH) 11.117 uIU/mL (0.358-3.74) O2 Saturation 91 % (92-99) Arterial Blood pH 7.26 (7.35-7.45) Arterial Blood pCO2 at Patient Temp 36 mmHg (35-46) Arterial Blood pO2 at Patient Temp 74 mmHg (85-108) Arterial Blood HCO3 16 mmol/L (21-28) Arterial Blood Base Excess -10 mmol/L (-3-3) FiO2 100 Test 03/25/17 17:00 03/25/17 19:30 03/26/17 06:05 03/26/17 09:10 Urine Opiates Screen Neg (NEG) Urine Methadone Screen Neg (NEG) Urine Barbiturates Neg (NEG) Urine Phencyclidine Screen Neg (NEG) Urine Amphetamine/Methamphetamine Neg (NEG) Urine Benzodiazepines Screen Pos (NEG) Urine Cocaine Screen Neg (NEG) Urine Cannabinoids Screen Neg (NEG) Urine Ethyl Alcohol Neg (NEG) O2 Saturation 98 % (92-99) 99 % (92-99) Arterial Blood pH 7.46 (7.35-7.45) 7.43 (7.35-7.45) Arterial Blood pCO2 at Patient Temp 36 mmHg (35-46) 31 mmHg (35-46) Arterial Blood pO2 at Patient Temp 128 mmHg (85-108) 141 mmHg (85-108) Arterial Blood HCO3 25 mmol/L (21-28) 20 mmol/L (21-28) Arterial Blood Base Excess 1 mmol/L (-3-3) -3 mmol/L (-3-3) FiO2 90 40 White Blood Count 17.3 x10^3/uL (4.0-11.0) Red Blood Count 3.64 x10^6/uL (3.50-5.40) Hemoglobin 10.8 g/dL (12.0-15.5) Hematocrit 33.0 % (36.0-47.0) Mean Corpuscular Volume 91 fL (79-100) Mean Corpuscular Hemoglobin 30 pg (25-35) Mean Corpuscular Hemoglobin Concent 33 g/dL (31-37) Red Cell Distribution Width 15.8 % (11.5-14.5) Platelet Count 460 x10^3/uL (140-400) Neutrophils (%) (Auto) 70 % (31-73) Lymphocytes (%) (Auto) 22 % (24-48) Monocytes (%) (Auto) 6 % (0-9) Eosinophils (%) (Auto) 0 % (0-3) Basophils (%) (Auto) 1 % (0-3) Neutrophils # (Auto) 12.2 x10^3uL (1.8-7.7) Lymphocytes # (Auto) 3.7 x10^3/uL (1.0-4.8) Monocytes # (Auto) 1.1 x10^3/uL (0.0-1.1) Eosinophils # (Auto) 0.1 x10^3/uL (0.0-0.7) Basophils # (Auto) 0.2 x10^3/uL (0.0-0.2) Sodium Level 142 mmol/L (136-145) Potassium Level 3.9 mmol/L (3.5-5.1) Chloride Level 106 mmol/L (98-107) Carbon Dioxide Level 25 mmol/L (21-32) Anion Gap 11 (6-14) Blood Urea Nitrogen 27 mg/dL (7-20) Creatinine 4.6 mg/dL (0.6-1.0) Estimated GFR (Cockcroft-Gault) 11.3 Glucose Level 123 mg/dL (70-99) Lactic Acid Level 1.2 mmol/L (0.4-2.0) Calcium Level 8.0 mg/dL (8.5-10.1) Phosphorus Level 3.9 mg/dL (2.6-4.7) Albumin 1.8 g/dL (3.4-5.0) Free Thyroxine 1.24 ng/dL (0.76-1.46) Free Triiodothyronine (T3) pg/mL 1.67 pg/mL (2.18-3.98) Test 03/26/17 14:25 O2 Saturation 98 % (92-99) Arterial Blood pH 7.48 (7.35-7.45) Arterial Blood pCO2 at Patient Temp 34 mmHg (35-46) Arterial Blood pO2 at Patient Temp 115 mmHg (85-108) Arterial Blood HCO3 24 mmol/L (21-28) Arterial Blood Base Excess 1 mmol/L (-3-3) FiO2 40 Laboratory Tests Test 03/25/17 17:00 03/25/17 19:30 03/26/17 06:05 03/26/17 09:10 Urine Opiates Screen Neg (NEG) Urine Methadone Screen Neg (NEG) Urine Barbiturates Neg (NEG) Urine Phencyclidine Screen Neg (NEG) Urine Amphetamine/Methamphetamine Neg (NEG) Urine Benzodiazepines Screen Pos (NEG) Urine Cocaine Screen Neg (NEG) Urine Cannabinoids Screen Neg (NEG) Urine Ethyl Alcohol Neg (NEG) O2 Saturation 98 % (92-99) 99 % (92-99) Arterial Blood pH 7.46 (7.35-7.45) 7.43 (7.35-7.45) Arterial Blood pCO2 at Patient Temp 36 mmHg (35-46) 31 mmHg (35-46) Arterial Blood pO2 at Patient Temp 128 mmHg (85-108) 141 mmHg (85-108) Arterial Blood HCO3 25 mmol/L (21-28) 20 mmol/L (21-28) Arterial Blood Base Excess 1 mmol/L (-3-3) -3 mmol/L (-3-3) FiO2 90 40 White Blood Count 17.3 x10^3/uL (4.0-11.0) Red Blood Count 3.64 x10^6/uL (3.50-5.40) Hemoglobin 10.8 g/dL (12.0-15.5) Hematocrit 33.0 % (36.0-47.0) Mean Corpuscular Volume 91 fL (79-100) Mean Corpuscular Hemoglobin 30 pg (25-35) Mean Corpuscular Hemoglobin Concent 33 g/dL (31-37) Red Cell Distribution Width 15.8 % (11.5-14.5) Platelet Count 460 x10^3/uL (140-400) Neutrophils (%) (Auto) 70 % (31-73) Lymphocytes (%) (Auto) 22 % (24-48) Monocytes (%) (Auto) 6 % (0-9) Eosinophils (%) (Auto) 0 % (0-3) Basophils (%) (Auto) 1 % (0-3) Neutrophils # (Auto) 12.2 x10^3uL (1.8-7.7) Lymphocytes # (Auto) 3.7 x10^3/uL (1.0-4.8) Monocytes # (Auto) 1.1 x10^3/uL (0.0-1.1) Eosinophils # (Auto) 0.1 x10^3/uL (0.0-0.7) Basophils # (Auto) 0.2 x10^3/uL (0.0-0.2) Sodium Level 142 mmol/L (136-145) Potassium Level 3.9 mmol/L (3.5-5.1) Chloride Level 106 mmol/L (98-107) Carbon Dioxide Level 25 mmol/L (21-32) Anion Gap 11 (6-14) Blood Urea Nitrogen 27 mg/dL (7-20) Creatinine 4.6 mg/dL (0.6-1.0) Estimated GFR (Cockcroft-Gault) 11.3 Glucose Level 123 mg/dL (70-99) Lactic Acid Level 1.2 mmol/L (0.4-2.0) Calcium Level 8.0 mg/dL (8.5-10.1) Phosphorus Level 3.9 mg/dL (2.6-4.7) Albumin 1.8 g/dL (3.4-5.0) Free Thyroxine 1.24 ng/dL (0.76-1.46) Free Triiodothyronine (T3) pg/mL 1.67 pg/mL (2.18-3.98) Test 03/26/17 14:25 O2 Saturation 98 % (92-99) Arterial Blood pH 7.48 (7.35-7.45) Arterial Blood pCO2 at Patient Temp 34 mmHg (35-46) Arterial Blood pO2 at Patient Temp 115 mmHg (85-108) Arterial Blood HCO3 24 mmol/L (21-28) Arterial Blood Base Excess 1 mmol/L (-3-3) FiO2 40 Medications Active Scripts Medications Dose Route/Sig Max Daily Dose Days Date Category Multivitamins (Multivitamin) 1 Each Tablet 1 Tab PO DAILY 03/15/17 Reported Omeprazole 20 Mg Capsule. 1 Cap PO DAILY 03/15/17 Reported Impression . IMPRESSION: 1. Acute respiratory failure secondary to seizure 2. Seizure? etiology. 3. Appendicitis status post appendectomy on March 15. 4. Gastric sleeve surgery in February 2017. 5. Acute kidney injury. 6. Encephalopathy. 7. Obesity, probable obstructive sleep apnea-hypopnea syndrome. 8. Gastroesophageal reflux disease. CXR IMPRESSION: ET tube tip is located 3.5 cm above the level of the karin. NG tube is in place and the tube is seen extending into at least the proximal body of the stomach. Right upper extremity PICC line tip remains within the mid SVC. Decreased inspiration with right lung base atelectasis is seen. The left lung base infiltrate and/or left-sided pleural effusion seen previously has improved. No pulmonary edema or pneumothorax is seen. The heart size and pulmonary vasculature and mediastinum and both harry are unremarkable. Plan . PT DID NOT DO WELL ON TRIAL WILL CONTINUE THE SAME FOR NOW SPOKE WITH BOYFRIEND 1. Continue ventilator support 2. Neurology FOLLOW RECOMMENDATION 3. Elevate head of bed. 4. IV fluids. 5. Continue antibiotic, possible aspiration 6. Monitor respiratory status very closely. 7. Continue Protonix. 8. Follow up CT of the head. Neurology is consulted. 9. follow nephro input KAT ACOSTA MD Mar 26, 2017 15:02
--- NOTE | 2017-03-26 15:06 | PDOC ---
PROGRESS NOTES Subjective Subjective Patient is intubated. Off levofed. Tolerated dialysis well. Acidosis corrected. Objective Objective Vital Signs Date Time Temp Pulse Resp B/P (MAP) Pulse Ox O2 Delivery O2 Flow Rate FiO2 03/26/17 14:00 98 103/72 (82) 03/26/17 14:00 27 98 Ventilator 03/26/17 11:40 99.4 99.4 03/25/17 08:00 2.0 Intake and Output 03/27/17 07:00 Intake Total 0 ml Output Total 885 ml Balance -885 ml Intake Oral 0 ml Output Urine Total 885 ml # Bowel Movements 2 Physical Exam Physical Exam Sedated. Moving air well. No significant changes and cardiac exam Assessment Assessment Patient appears to be improving. I agree with present plan. May DC groin lines when okay with nephrology Comment Review of Relevant I have reviewed the following items na (where applicable) has been applied. Labs Laboratory Tests Test 03/25/17 06:05 03/25/17 13:29 03/25/17 13:30 03/25/17 13:42 Sodium Level 145 mmol/L (136-145) 146 mmol/L (136-145) Potassium Level 3.8 mmol/L (3.5-5.1) 3.9 mmol/L (3.5-5.1) Chloride Level 107 mmol/L (98-107) 106 mmol/L (98-107) Carbon Dioxide Level 28 mmol/L (21-32) 25 mmol/L (21-32) Anion Gap 10 (6-14) 15 (6-14) Blood Urea Nitrogen 29 mg/dL (7-20) 30 mg/dL (7-20) Creatinine 6.1 mg/dL (0.6-1.0) 6.3 mg/dL (0.6-1.0) Estimated GFR (Cockcroft-Gault) 8.2 7.9 Glucose Level 96 mg/dL (70-99) 145 mg/dL (70-99) Calcium Level 9.0 mg/dL (8.5-10.1) 9.7 mg/dL (8.5-10.1) Phosphorus Level 4.5 mg/dL (2.6-4.7) Albumin 1.8 g/dL (3.4-5.0) 2.3 g/dL (3.4-5.0) Glucose (Fingerstick) 133 mg/dL (70-99) White Blood Count 21.6 x10^3/uL (4.0-11.0) Red Blood Count 4.16 x10^6/uL (3.50-5.40) Hemoglobin 12.3 g/dL (12.0-15.5) Hematocrit 37.2 % (36.0-47.0) Mean Corpuscular Volume 90 fL (79-100) Mean Corpuscular Hemoglobin 30 pg (25-35) Mean Corpuscular Hemoglobin Concent 33 g/dL (31-37) Red Cell Distribution Width 15.7 % (11.5-14.5) Platelet Count 539 x10^3/uL (140-400) Neutrophils (%) (Auto) 64 % (31-73) Lymphocytes (%) (Auto) 27 % (24-48) Monocytes (%) (Auto) 6 % (0-9) Eosinophils (%) (Auto) 1 % (0-3) Basophils (%) (Auto) 2 % (0-3) Neutrophils # (Auto) 13.8 x10^3uL (1.8-7.7) Lymphocytes # (Auto) 5.9 x10^3/uL (1.0-4.8) Monocytes # (Auto) 1.3 x10^3/uL (0.0-1.1) Eosinophils # (Auto) 0.3 x10^3/uL (0.0-0.7) Basophils # (Auto) 0.4 x10^3/uL (0.0-0.2) Segmented Neutrophils % 61 % (35-66) Band Neutrophils % 4 % (0-9) Lymphocytes % 26 % (24-48) Atypical Lymphocytes % (Manual) 5 % (0-0) Monocytes % 3 % (0-10) Eosinophils % 1 % (0-5) Platelet Estimate Increased (ADEQUATE) Giant Platelets Few Anisocytosis Slight BUN/Creatinine Ratio 5 (6-20) Total Bilirubin 0.3 mg/dL (0.2-1.0) Aspartate Amino Transf (AST/SGOT) 17 U/L (15-37) Alanine Aminotransferase (ALT/SGPT) 20 U/L (14-59) Alkaline Phosphatase 67 U/L (46-116) Creatine Kinase 26 U/L (26-192) Total Protein 7.2 g/dL (6.4-8.2) Albumin/Globulin Ratio 0.5 (1.0-1.7) Thyroid Stimulating Hormone (TSH) 11.117 uIU/mL (0.358-3.74) O2 Saturation 91 % (92-99) Arterial Blood pH 7.26 (7.35-7.45) Arterial Blood pCO2 at Patient Temp 36 mmHg (35-46) Arterial Blood pO2 at Patient Temp 74 mmHg (85-108) Arterial Blood HCO3 16 mmol/L (21-28) Arterial Blood Base Excess -10 mmol/L (-3-3) FiO2 100 Test 03/25/17 17:00 03/25/17 19:30 03/26/17 06:05 03/26/17 09:10 Urine Opiates Screen Neg (NEG) Urine Methadone Screen Neg (NEG) Urine Barbiturates Neg (NEG) Urine Phencyclidine Screen Neg (NEG) Urine Amphetamine/Methamphetamine Neg (NEG) Urine Benzodiazepines Screen Pos (NEG) Urine Cocaine Screen Neg (NEG) Urine Cannabinoids Screen Neg (NEG) Urine Ethyl Alcohol Neg (NEG) O2 Saturation 98 % (92-99) 99 % (92-99) Arterial Blood pH 7.46 (7.35-7.45) 7.43 (7.35-7.45) Arterial Blood pCO2 at Patient Temp 36 mmHg (35-46) 31 mmHg (35-46) Arterial Blood pO2 at Patient Temp 128 mmHg (85-108) 141 mmHg (85-108) Arterial Blood HCO3 25 mmol/L (21-28) 20 mmol/L (21-28) Arterial Blood Base Excess 1 mmol/L (-3-3) -3 mmol/L (-3-3) FiO2 90 40 White Blood Count 17.3 x10^3/uL (4.0-11.0) Red Blood Count 3.64 x10^6/uL (3.50-5.40) Hemoglobin 10.8 g/dL (12.0-15.5) Hematocrit 33.0 % (36.0-47.0) Mean Corpuscular Volume 91 fL (79-100) Mean Corpuscular Hemoglobin 30 pg (25-35) Mean Corpuscular Hemoglobin Concent 33 g/dL (31-37) Red Cell Distribution Width 15.8 % (11.5-14.5) Platelet Count 460 x10^3/uL (140-400) Neutrophils (%) (Auto) 70 % (31-73) Lymphocytes (%) (Auto) 22 % (24-48) Monocytes (%) (Auto) 6 % (0-9) Eosinophils (%) (Auto) 0 % (0-3) Basophils (%) (Auto) 1 % (0-3) Neutrophils # (Auto) 12.2 x10^3uL (1.8-7.7) Lymphocytes # (Auto) 3.7 x10^3/uL (1.0-4.8) Monocytes # (Auto) 1.1 x10^3/uL (0.0-1.1) Eosinophils # (Auto) 0.1 x10^3/uL (0.0-0.7) Basophils # (Auto) 0.2 x10^3/uL (0.0-0.2) Sodium Level 142 mmol/L (136-145) Potassium Level 3.9 mmol/L (3.5-5.1) Chloride Level 106 mmol/L (98-107) Carbon Dioxide Level 25 mmol/L (21-32) Anion Gap 11 (6-14) Blood Urea Nitrogen 27 mg/dL (7-20) Creatinine 4.6 mg/dL (0.6-1.0) Estimated GFR (Cockcroft-Gault) 11.3 Glucose Level 123 mg/dL (70-99) Lactic Acid Level 1.2 mmol/L (0.4-2.0) Calcium Level 8.0 mg/dL (8.5-10.1) Phosphorus Level 3.9 mg/dL (2.6-4.7) Albumin 1.8 g/dL (3.4-5.0) Free Thyroxine 1.24 ng/dL (0.76-1.46) Free Triiodothyronine (T3) pg/mL 1.67 pg/mL (2.18-3.98) Test 03/26/17 14:25 O2 Saturation 98 % (92-99) Arterial Blood pH 7.48 (7.35-7.45) Arterial Blood pCO2 at Patient Temp 34 mmHg (35-46) Arterial Blood pO2 at Patient Temp 115 mmHg (85-108) Arterial Blood HCO3 24 mmol/L (21-28) Arterial Blood Base Excess 1 mmol/L (-3-3) FiO2 40 Laboratory Tests Test 03/25/17 17:00 03/25/17 19:30 03/26/17 06:05 03/26/17 09:10 Urine Opiates Screen Neg (NEG) Urine Methadone Screen Neg (NEG) Urine Barbiturates Neg (NEG) Urine Phencyclidine Screen Neg (NEG) Urine Amphetamine/Methamphetamine Neg (NEG) Urine Benzodiazepines Screen Pos (NEG) Urine Cocaine Screen Neg (NEG) Urine Cannabinoids Screen Neg (NEG) Urine Ethyl Alcohol Neg (NEG) O2 Saturation 98 % (92-99) 99 % (92-99) Arterial Blood pH 7.46 (7.35-7.45) 7.43 (7.35-7.45) Arterial Blood pCO2 at Patient Temp 36 mmHg (35-46) 31 mmHg (35-46) Arterial Blood pO2 at Patient Temp 128 mmHg (85-108) 141 mmHg (85-108) Arterial Blood HCO3 25 mmol/L (21-28) 20 mmol/L (21-28) Arterial Blood Base Excess 1 mmol/L (-3-3) -3 mmol/L (-3-3) FiO2 90 40 White Blood Count 17.3 x10^3/uL (4.0-11.0) Red Blood Count 3.64 x10^6/uL (3.50-5.40) Hemoglobin 10.8 g/dL (12.0-15.5) Hematocrit 33.0 % (36.0-47.0) Mean Corpuscular Volume 91 fL (79-100) Mean Corpuscular Hemoglobin 30 pg (25-35) Mean Corpuscular Hemoglobin Concent 33 g/dL (31-37) Red Cell Distribution Width 15.8 % (11.5-14.5) Platelet Count 460 x10^3/uL (140-400) Neutrophils (%) (Auto) 70 % (31-73) Lymphocytes (%) (Auto) 22 % (24-48) Monocytes (%) (Auto) 6 % (0-9) Eosinophils (%) (Auto) 0 % (0-3) Basophils (%) (Auto) 1 % (0-3) Neutrophils # (Auto) 12.2 x10^3uL (1.8-7.7) Lymphocytes # (Auto) 3.7 x10^3/uL (1.0-4.8) Monocytes # (Auto) 1.1 x10^3/uL (0.0-1.1) Eosinophils # (Auto) 0.1 x10^3/uL (0.0-0.7) Basophils # (Auto) 0.2 x10^3/uL (0.0-0.2) Sodium Level 142 mmol/L (136-145) Potassium Level 3.9 mmol/L (3.5-5.1) Chloride Level 106 mmol/L (98-107) Carbon Dioxide Level 25 mmol/L (21-32) Anion Gap 11 (6-14) Blood Urea Nitrogen 27 mg/dL (7-20) Creatinine 4.6 mg/dL (0.6-1.0) Estimated GFR (Cockcroft-Gault) 11.3 Glucose Level 123 mg/dL (70-99) Lactic Acid Level 1.2 mmol/L (0.4-2.0) Calcium Level 8.0 mg/dL (8.5-10.1) Phosphorus Level 3.9 mg/dL (2.6-4.7) Albumin 1.8 g/dL (3.4-5.0) Free Thyroxine 1.24 ng/dL (0.76-1.46) Free Triiodothyronine (T3) pg/mL 1.67 pg/mL (2.18-3.98) Test 03/26/17 14:25 O2 Saturation 98 % (92-99) Arterial Blood pH 7.48 (7.35-7.45) Arterial Blood pCO2 at Patient Temp 34 mmHg (35-46) Arterial Blood pO2 at Patient Temp 115 mmHg (85-108) Arterial Blood HCO3 24 mmol/L (21-28) Arterial Blood Base Excess 1 mmol/L (-3-3) FiO2 40 Microbiology 03/17/17 Blood Culture - Final, Complete NO GROWTH AFTER 5 DAYS Medications Current Medications Dexamethasone Sodium Phosphate (Decadron) 20 mg STK-MED ONCE .ROUTE ; Start 03/15/17 at 14:06; Stop 03/15/17 at 14:07; Status DC Ondansetron HCl (Zofran) 4 mg STK-MED ONCE .ROUTE ; Start 03/15/17 at 14:06; Stop 03/15/17 at 14:07; Status DC Propofol 20 ml @ As Directed STK-MED ONCE IV ; Start 03/15/17 at 14:06; Stop at 14:07; Status DC Lidocaine HCl (Lidocaine Pf 2% Vial) 5 ml STK-MED ONCE .ROUTE ; Start 03/15/17 at 14:06; Stop 03/15/17 at 14:07; Status DC Midazolam HCl (Versed) 2 mg STK-MED ONCE .ROUTE ; Start 03/15/17 at 14:06; Stop 03/15/17 at 14:07; Status DC Fentanyl Citrate (Fentanyl 2ml Vial) 100 mcg STK-MED ONCE .ROUTE ; Start at 14:06; Stop 03/15/17 at 14:07; Status DC Rocuronium [place] (Zemuron) 100 mg STK-MED ONCE .ROUTE ; Start 03/15/17 at 14: 07; Stop 03/15/17 at 14:08; Status DC Succinylcholine Chloride (Anectine) 200 mg STK-MED ONCE .ROUTE ; Start 03/15/17 at 14:07; Stop 03/15/17 at 14:08; Status DC Bupivacaine HCl/ Epinephrine Bitart (Marcaine-Epi 0.5%-[id number]) 50 ml STK-MED ONCE .ROUTE Last administered on 03/15/17 14:54; Start 03/15/17 at 13:07; Stop 03/15/17 at 14:08; Status DC Cefoxitin Sodium 2 gm/Sodium Chloride 100 ml @ 200 mls/hr 1X PREOP IV Last administered on 03/15/17 14:55; Start 03/15/17 at 16:00; Stop 03/16/17 at 14:41 ; Status DC Sodium Chloride 1,000 ml @ 125 mls/hr 1X ONCE IV Last administered on 14:15; Start 03/15/17 at 14:15; Stop 03/15/17 at 22:14; Status DC Cefoxitin Sodium 100 ml @ As Directed STK-MED ONCE IV ; Start 03/15/17 at 14:53 ; Stop 03/15/17 at 14:54; Status DC Enoxaparin Sodium (Lovenox 40mg Syringe) 40 mg Q24H SQ ; Start 03/15/17 at 15:30 ; Stop 03/16/17 at 14:38; Status DC Sodium Chloride (Normal Saline Flush) 3 ml QSHIFT PRN IV AFTER MEDS AND BLOOD DRAWS; Start 03/15/17 at 15:30 Ringer's Solution 1,000 ml @ 75 mls/hr [id number] IV Last administered on 14:05; Start 03/15/17 at 15:19 Acetaminophen/ Hydrocodone Bitart (Lortab 5/325) 1 tab PRN Q4HRS PRN PO MILD PAIN Last administered on 03/16/17 02:56; Start 03/15/17 at 15:30; Stop at 13:05; Status DC Ketorolac Tromethamine (Toradol) 15 mg PRN Q6HRS PRN IV PAIN; Start 03/15/17 at 15:30; Stop 03/16/17 at 09:05; Status DC Morphine Sulfate 2 mg PRN Q1HR PRN IV PAIN Last administered on 03/22/17 09: 36; Start 03/15/17 at 15:30 Docusate Sodium (Colace) 100 mg BID PO Last administered on 03/17/17 13:04; Start 03/15/17 at 21:00 Ondansetron HCl (Zofran) 4 mg PRN Q6HRS PRN IV NAUESA, 1ST CHOICE Last administered on 03/22/17 06:34; Start 03/15/17 at 15:30; Stop 03/22/17 at 09: 09; Status DC Piperacillin Sod/ Tazobactam Sod 3.375 gm/Sodium Chloride 50 ml @ 100 mls/hr Q6HRS IV Last administered on 03/21/17 06:20; Start 03/15/17 at 18:00; Stop 03/21/17 at 09:24; Status DC Morphine Sulfate 10 mg STK-MED ONCE .ROUTE ; Start 03/15/17 at 15:32; Stop 03/15 at 15:33; Status DC Ringer's Solution 1,000 ml @ 125 mls/hr Q8H IV Last administered on 03/16/17 00:51; Start 03/15/17 at 15:42; Stop 03/16/17 at 03:41; Status DC Lidocaine HCl (Xylocaine-Mpf 1% Vial) 0.5 ml 1X PRN PRN INJ IV START; Start at 15:45; Stop 03/16/17 at 15:44; Status DC Ringer's Solution 1,000 ml @ 125 mls/hr Q8H IV ; Start 03/15/17 at 15:42; Stop 03/15/17 at 21:41; Status DC Fentanyl Citrate (Fentanyl 2ml Vial) 25 mcg PRN Q5MIN PRN IV Acute Pain; Start 03/15/17 at 15:45; Stop 03/16/17 at 09:05; Status DC Fentanyl Citrate (Fentanyl 2ml Vial) 50 mcg PRN Q5MIN PRN IV Acute Pain Last administered on 03/15/17 15:58; Start 03/15/17 at 15:45; Stop 03/16/17 at 09:05 ; Status DC Morphine Sulfate 2 mg PRN Q10MIN PRN IV Mild Pain; Start 03/15/17 at 15:45; Stop 03/16/17 at 09:05; Status DC Morphine Sulfate 4 mg PRN Q10MIN PRN IV Moderate Pain; Start 03/15/17 at 15:45 ; Stop 03/16/17 at 09:05; Status DC Ondansetron HCl (Zofran) 4 mg PRN Q6HRS PRN IV Nausea, 1st Choice; Start at 15:45; Stop 03/16/17 at 09:05; Status DC Metoclopramide HCl (Reglan) 10 mg PRN Q6HRS PRN IV Nausea/Vomiting, 2nd Choice Last administered on 03/15/17 18:49; Start 03/15/17 at 15:45; Stop 03/16/17 at 15:44; Status DC Diphenhydramine HCl (Benadryl) 12.5 mg PRN Q2HR PRN IV ITCHING; Start 03/15/17 at 15:45; Stop 03/16/17 at 15:44; Status DC Albuterol Sulfate (Ventolin Neb Soln) 2.5 mg PRN 1X PRN NEB Shortness of Breath , Wheezing; Start 03/15/17 at 15:45; Stop 03/16/17 at 15:44; Status DC Dexamethasone Sodium Phosphate (Decadron) 8 mg 1X PRN PRN IV 3RD CHOICE FOR NAUSEA; Start 03/15/17 at 15:45; Stop 03/16/17 at 15:44; Status DC Meperidine HCl (Demerol) 10 mg 1X PERIOP PRN IV SHIVERING; Start 03/15/17 at 15 :45; Stop 03/16/17 at 15:44; Status DC Meperidine HCl (Demerol) 15 mg 1X PERIOP PRN IV SHIVERING; Start 03/15/17 at 15 :45; Stop 03/16/17 at 15:44; Status DC Prochlorperazine Edisylate (Compazine) 10 mg STK-MED ONCE .ROUTE ; Start at 15:48; Stop 03/15/17 at 15:49; Status DC Prochlorperazine Maleate (Compazine) 5 mg 1X PACU PRN PO NAUSEA/VOMITING; Start 03/15/17 at 16:00; Stop 03/19/17 at 19:03; Status DC Hydromorphone HCl (Dilaudid) 0.5 mg PRN Q10MIN PRN IV PAIN Last administered on 03/15/17 16:52; Start 03/15/17 at 16:15; Stop 03/16/17 at 09:05; Status DC Acetaminophen/ Hydrocodone Bitart (Lortab 5/325) 2 tab PRN Q4HRS PRN PO PAIN Last administered on 03/16/17 10:16; Start 03/16/17 at 09:15; Stop 03/16/17 at 13:05; Status DC Multivitamins (Thera M Plus) 1 tab DAILY PO Last administered on 03/26/17 07: 42; Start 03/16/17 at 13:00 Pantoprazole Sodium (Protonix) 40 mg DAILYAC PO Last administered on 03/20/17 08:48; Start 03/16/17 at 13:00; Stop 03/20/17 at 11:14; Status DC Oxycodone/ Acetaminophen (Percocet 7.5/ 325) 1 tab PRN Q4HRS PRN PO PAIN Last administered on 03/23/17 14:59; Start 03/16/17 at 13:15 Morphine Sulfate 4 mg PRN Q2HR PRN IV PAIN Last administered on 03/18/17 14:11 ; Start 03/16/17 at 13:15 Enoxaparin Sodium (Lovenox 40mg Syringe) 40 mg Q12HR SQ Last administered on 08:47; Start 03/16/17 at 21:00; Stop 03/20/17 at 16:57; Status DC Iohexol (Omnipaque 300 Mg/ml) 75 ml 1X ONCE IV Last administered on 03/17/17 08:00; Start 03/17/17 at 08:00; Stop 03/17/17 at 08:01; Status DC Iohexol (Omnipaque 240 Mg/ml) 50 ml 1X ONCE PO Last administered on 03/17/17 08:00; Start 03/17/17 at 08:00; Stop 03/17/17 at 08:01; Status DC Info (Do NOT chart on this entry -- for MONITORING) 1 each PRN DAILY PRN MC SEE COMMENTS; Start 03/17/17 at 07:45; Stop 03/19/17 at 07:44; Status DC Sodium Chloride 1,000 ml @ 1,000 mls/hr 1X ONCE IV Last administered on 08:00; Start 03/17/17 at 08:00; Stop 03/17/17 at 08:59; Status DC Vancomycin HCl (Vanco Per Pharmacy) 1 each PRN DAILY PRN MC SEE COMMENTS Last administered on 03/18/17 14:24; Start 03/17/17 at 08:00; Stop 03/19/17 at 11:10 ; Status DC Fluconazole/ Sodium Chloride 200 ml @ 100 mls/hr Q24H IV Last administered on 03/21/17 08:07; Start 03/17/17 at 09:00; Stop 03/21/17 at 09:24; Status DC Vancomycin HCl 2 gm/Sodium Chloride 500 ml @ 250 mls/hr 1X ONCE IV Last administered on 03/17/17 13:08; Start 03/17/17 at 09:00; Stop 03/17/17 at 10:59 ; Status DC Acetaminophen (Tylenol) 650 mg PRN Q6HRS PRN PO FEVER Last administered on 16:34; Start 03/17/17 at 08:15 Vancomycin HCl 2 gm/Sodium Chloride 500 ml @ 250 mls/hr Q8H IV Last administered on 03/19/17 05:41; Start 03/17/17 at 22:00; Stop 03/19/17 at 11:10 ; Status DC Vancomycin HCl 1 each 1X ONCE MC ; Start 03/18/17 at 13:30; Stop 03/18/17 at 13 :31; Status DC Calcium Carbonate/ Glycine (Tums) 1,000 mg PRN Q4HRS PRN PO INDIGESTION Last administered on 03/17/17 23:57; Start 03/17/17 at 23:45 Potassium Chloride (Klor-Con) 40 meq 1X ONCE PO Last administered on 14:14; Start 03/18/17 at 12:45; Stop 03/18/17 at 12:46; Status DC Vancomycin HCl 1 each 1X ONCE MC ; Start 03/19/17 at 13:30; Stop 03/19/17 at 13 :30; Status DC Sodium Chloride 1,000 ml @ 1,000 mls/hr 1X ONCE IV Last administered on 14:28; Start 03/19/17 at 12:15; Stop 03/19/17 at 13:14; Status DC Pantoprazole Sodium (Protonix) 40 mg BIDAC PO Last administered on 03/25/17 08:31; Start 03/20/17 at 16:30; Stop 03/25/17 at 16:05; Status DC Simethicone (Gas-X) 80 mg PRN AFTMEALHC PRN PO GAS / BLOATING Last administered on 03/22/17 08:55; Start 03/20/17 at 11:15 Al Hydroxide/Mg Hydroxide (Mylanta Plus Xs) 30 ml PRN Q2HR PRN PO HEARTBURN / GAS; Start 03/20/17 at 11:15 Enoxaparin Sodium (Lovenox 40mg Syringe) 40 mg DAILY SQ Last administered on 08:09; Start 03/21/17 at 09:00; Stop 03/22/17 at 12:42; Status DC Fluconazole/ Sodium Chloride 100 ml @ 100 mls/hr Q24H IV ; Start 03/22/17 at 09:00; Stop 03/22/17 at 09:00; Status DC Piperacillin Sod/ Tazobactam Sod 3.375 gm/Sodium Chloride 50 ml @ 100 mls/hr Q12HR IV ; Start 03/21/17 at 21:00; Stop 03/21/17 at 21:00; Status DC Fluconazole/ Sodium Chloride 100 ml @ 100 mls/hr Q24H IV Last administered on 03/22/17 09:30; Start 03/22/17 at 09:00; Stop 03/23/17 at 10:05; Status DC Piperacillin Sod/ Tazobactam Sod 2.25 gm/Sodium Chloride 50 ml @ 100 mls/hr Q6HRS IV Last administered on 03/23/17 05:58; Start 03/21/17 at 12:00; Stop 03/23/17 at 10:05; Status DC Ondansetron HCl (Zofran) 8 mg PRN Q8HRS PRN IV NAUESA, 1ST CHOICE Last administered on 03/25/17 06:17; Start 03/22/17 at 09:15 Prochlorperazine Edisylate (Compazine) 10 mg PRN Q8HRS PRN IV NAUSEA/VOMITING - 2nd choice Last administered on 03/25/17 10:23; Start 03/22/17 at 09:15 Amino Acids/ Glycerin/ Electrolytes 1,000 ml @ 80 mls/hr [id number] IV Last administered on 03/26/17 04:13; Start 03/22/17 at 11:45 Heparin Sodium (Porcine) (Heparin Sq) 5,000 unit Q8HRS SQ Last administered on 03/25/17 06:07; Start 03/22/17 at 14:00; Stop 03/25/17 at 08:45; Status DC Loperamide HCl (Imodium) 2 mg PRN Q15MIN PRN PO DIARRHEA; Start 03/23/17 at 08 :00 Amoxicillin/ Clavulanate Potassium (Augmentin 500/ 125mg) 1 tab BID PO Last administered on 03/25/17 08:31; Start 03/23/17 at 10:30; Stop 03/25/17 at 14 :03; Status DC Promethazine HCl (Phenergan) 25 mg PRN Q6HRS PRN GA NAUSEA/VOMITING; Start 05/28 at 15:15 Furosemide (Lasix) 80 mg 1X ONCE IVP Last administered on 03/24/17 12:13; Start 03/24/17 at 11:30; Stop 03/24/17 at 11:31; Status DC Iohexol (Omnipaque 240 Mg/ml) 50 ml 1X ONCE PO Last administered on 09:30; Start 03/25/17 at 09:30; Stop 03/25/17 at 09:31; Status DC Iohexol (Omnipaque 240 Mg/ml) 50 ml 1X ONCE PO Last administered on 12:32; Start 03/25/17 at 12:30; Stop 03/25/17 at 12:31; Status DC Lorazepam (Ativan) 1 mg 1X ONCE IV Last administered on 03/25/17 13:40; Start 03/25/17 at 14:00; Stop 03/25/17 at 14:01; Status DC Piperacillin Sod/ Tazobactam Sod 2.25 gm/Sodium Chloride 50 ml @ 100 mls/hr Q8HRS IV Last administered on 03/26/17 13:29; Start 03/25/17 at 15:00 Levetiracetam 500 mg/Sodium Chloride 100 ml @ 400 mls/hr Q12HR IV ; Start at 15:00; Stop 03/25/17 at 15:00; Status DC Lorazepam (Ativan) 2 mg PRN Q1HR PRN IV SEIZURE Last administered on 14:30; Start 03/25/17 at 14:15; Stop 03/25/17 at 15:27; Status DC Levetiracetam 750 mg/Sodium Chloride 107.5 ml @ 400 mls/hr Q12HR IV Last administered on 03/26/17 07:41; Start 03/25/17 at 15:00 Digoxin (Lanoxin) 500 mcg 1X ONCE IV Last administered on 03/25/17 14:34; Start 03/25/17 at 14:30; Stop 03/25/17 at 14:31; Status DC Norepinephrine Bitartrate 250 ml @ 0 mls/hr CONT PRN IV SEE I/O RECORD Last administered on 03/25/17 21:53; Start 03/25/17 at 14:30 Sodium Chloride 1,000 ml @ 1,000 mls/hr 1X ONCE IV Last administered on 03/25 15:38; Start 03/25/17 at 15:00; Stop 03/25/17 at 15:59; Status DC Lorazepam (Ativan) 2 mg PRN Q4HRS PRN IV SEIZURE Last administered on 15:55; Start 03/25/17 at 15:30 Propofol 100 ml @ As Directed STK-MED ONCE IV ; Start 03/25/17 at 15:28; Stop 03/25/17 at 15:29; Status DC Propofol 100 ml @ 0 mls/hr CONT PRN IV SEE I/O RECORD Last administered on 12:21; Start 03/25/17 at 15:45 Sodium Bicarbonate 150 meq 1X ONCE IV Last administered on 03/25/17 15:43; Start 03/25/17 at 16:00; Stop 03/25/17 at 16:01; Status DC Adenosine (Adenocard) 6 mg 1X ONCE IV Last administered on 03/25/17 15:42; Start 03/25/17 at 16:15; Stop 03/25/17 at 16:16; Status DC Adenosine (Adenocard) 12 mg 1X ONCE IV Last administered on 03/25/17 15:48; Start 03/25/17 at 16:00; Stop 03/25/17 at 16:01; Status DC Midazolam HCl (Versed) 5 mg 1X ONCE IV Last administered on 03/25/17 15:48; Start 03/25/17 at 16:00; Stop 03/25/17 at 16:01; Status DC Pantoprazole Sodium (Protonix Vial) 40 mg BID IVP Last administered on 07:41; Start 03/25/17 at 21:00 Sodium Chloride 1,000 ml @ 1,000 mls/hr Q1H PRN IV hypotension; Start at 16:30; Stop 03/25/17 at 22:29; Status DC Sodium Chloride (Normal Saline Flush) 10 ml 1X PRN PRN IV AP catheter pack; Start 03/25/17 at 16:30; Stop 03/26/17 at 08:54; Status DC Sodium Chloride (Normal Saline Flush) 10 ml 1X PRN PRN IV RAILWAYS ASSISTANT catheter pack; Start 03/25/17 at 16:30; Stop 03/26/17 at 08:54; Status DC Sodium Chloride 1,000 ml @ 400 mls/hr Q2H30M PRN IV PATENCY; Start 03/25/17 at 16:30; Stop 03/26/17 at 04:29; Status DC Info (PHARMACY MONITORING -- do not chart) 1 each PRN DAILY PRN MC SEE COMMENTS ; Start 03/25/17 at 16:30 Info (PHARMACY MONITORING -- do not chart) 1 each PRN DAILY PRN MC SEE COMMENTS ; Start 03/25/17 at 16:30; Status UNV Acetaminophen (Tylenol) 650 mg PRN Q6HRS PRN PEG MILD PAIN / TEMP Last administered on 03/25/17t 18:44; Start 03/25/17 at 18:30 Fentanyl Citrate 30 ml @ 0 mls/hr CONT PRN PRN IV PROTOCOL; Start 03/25/17 at 19:15 Sodium Chloride 1,000 ml @ 1,000 mls/hr Q1H PRN IV hypotension; Start at 08:46; Stop 03/26/17 at 14:45; Status DC Sodium Chloride (Normal Saline Flush) 10 ml 1X PRN PRN IV AP catheter pack; Start 03/26/17 at 09:00; Stop 03/27/17 at 08:59 Sodium Chloride (Normal Saline Flush) 10 ml 1X PRN PRN IV RAILWAYS ASSISTANT catheter pack; Start 03/26/17 at 09:00; Stop 03/27/17 at 08:59 Sodium Chloride 1,000 ml @ 400 mls/hr Q2H30M PRN IV PATENCY; Start 03/26/17 at 08:46; Stop 03/26/17 at 20:45 Info (PHARMACY MONITORING -- do not chart) 1 each PRN DAILY PRN MC SEE COMMENTS ; Start 03/26/17 at 09:00; Status UNV Info (PHARMACY MONITORING -- do not chart) 1 each PRN DAILY PRN MC SEE COMMENTS ; Start 03/26/17 at 09:00; Status UNV Levothyroxine Sodium 15 mcg/ Sodium Chloride 5 ml @ 100 mls/hr DAILY IVP Last administered on 03/26/17t 14:05; Start 03/26/17 at 14:00 Chlorhexidine Gluconate (Peridex) 15 ml BID MM ; Start 03/26/17 at 21:00 Heparin Sodium (Porcine) (Heparin Sq) 5,000 unit BID SQ ; Start 03/26/17 at 21: 00 Active Scripts Active Reported Multivitamins (Multivitamin) 1 Each Tablet 1 Tab PO DAILY Omeprazole 20 Mg Capsule.dr 1 Cap PO DAILY Vitals/I & O Vital Sign - Last 24 Hours 03/25/17 03/25/17 03/25/17 03/25/17 15:15 15:45 16:00 16:00 Pulse 174 140 120 128 Resp 30 27 B/P (MAP) 158/86 (110) 118/70 (86) 114/74 (87) 112/72 (85) Pulse Ox 93 97 O2 Delivery Ventilator Ventilator 03/25/17 03/25/17 03/25/17 03/25/17 17:00 17:00 17:20 18:00 Temp 99.4 99.4 Pulse 122 122 132 Resp 32 30 B/P (MAP) 112/76 (88) 109/73 (85) 114/65 (81) Pulse Ox 99 98 98 O2 Delivery Ventilator Ventilator Ventilator 03/25/17 03/25/17 03/25/17 03/25/17 18:20 19:00 19:00 19:51 Pulse 118 112 Resp 30 B/P (MAP) 119/76 (90) 91/56 (68) Pulse Ox 98 98 O2 Delivery Ventilator Ventilator 03/25/17 03/25/17 03/25/17 03/25/17 20:00 20:00 20:00 21:00 Temp 99.0 99.0 Pulse 105 Resp 25 B/P (MAP) 90/54 (66) Pulse Ox 96 98 O2 Delivery Mechanical Ventilator Ventilator Ventilator 03/25/17 03/25/17 03/25/17 03/25/17 21:00 21:00 22:00 22:00 Pulse 97 94 Resp 18 22 B/P (MAP) 89/54 (66) 94/57 (69) Pulse Ox 99 100 O2 Delivery Ventilator Ventilator 03/25/17 03/25/17 03/25/17 03/26/17 23:00 23:00 23:49 00:00 Pulse 88 Resp 23 B/P (MAP) 91/53 (66) Pulse Ox 100 98 O2 Delivery Ventilator Ventilator 03/26/17 03/26/17 03/26/17 03/26/17 00:00 00:00 01:00 01:00 Temp 99.4 99.4 Pulse 77 83 Resp 27 21 B/P (MAP) 100/63 (75) 90/65 (73) Pulse Ox 100 100 O2 Delivery Mechanical Ventilator Ventilator Ventilator 03/26/17 03/26/17 03/26/17 03/26/17 01:12 02:00 02:00 03:00 Pulse 80 82 Resp 16 16 B/P (MAP) 95/69 (78) 107/62 (77) Pulse Ox 98 100 100 O2 Delivery Ventilator Ventilator Ventilator 03/26/17 03/26/17 03/26/17 03/26/17 03:00 03:23 04:00 04:00 Temp 99.0 99.0 Pulse 86 Resp 22 B/P (MAP) 111/66 (81) Pulse Ox 100 100 O2 Delivery Ventilator Ventilator Mechanical Ventilator 03/26/17 03/26/17 03/26/17 03/26/17 04:00 05:00 05:00 05:12 Pulse 84 Resp 18 B/P (MAP) 116/64 (81) Pulse Ox 99 100 O2 Delivery Ventilator Ventilator 03/26/17 03/26/17 03/26/17 03/26/17 06:00 06:00 07:00 07:00 Temp 99.1 99.1 Pulse 81 80 80 Resp 16 16 B/P (MAP) 121/71 (88) 111/78 (89) 111/78 (89) Pulse Ox 100 100 O2 Delivery Ventilator Ventilator 03/26/17 03/26/17 03/26/17 03/26/17 07:57 08:00 08:02 08:53 Pulse 79 80 Resp 17 B/P (MAP) 97/78 (84) 97/77 (84) Pulse Ox 100 100 O2 Delivery Mechanical Ventilator Ventilator Ventilator 03/26/17 03/26/17 03/26/17 03/26/17 09:00 09:00 10:00 10:00 Pulse 81 81 85 85 Resp 16 17 B/P (MAP) 103/84 (90) 103/84 (90) 129/88 (102) 129/88 (102) Pulse Ox 100 100 O2 Delivery Ventilator Ventilator 03/26/17 03/26/17 03/26/17 03/26/17 10:10 10:50 11:00 11:40 Temp 99.4 99.4 Pulse 84 82 92 91 Resp 16 16 16 B/P (MAP) 127/77 (94) 116/73 (87) 120/78 (92) 120/74 (89) Pulse Ox 100 100 100 O2 Delivery Ventilator Ventilator Ventilator 03/26/17 03/26/17 03/26/17 03/26/17 11:47 11:47 11:55 12:00 Pulse 91 100 Resp 18 B/P (MAP) 118/73 (88) 114/76 (89) Pulse Ox 100 100 O2 Delivery Mechanical Ventilator Ventilator Ventilator 03/26/17 03/26/17 03/26/17 03/26/17 12:50 13:00 13:51 14:00 Pulse 101 96 98 Resp 16 27 B/P (MAP) 107/69 (82) 103/64 (77) 105/69 (81) Pulse Ox 100 100 98 O2 Delivery Ventilator Ventilator Ventilator 03/26/17 14:00 Pulse 98 B/P (MAP) 103/72 (82) Intake and Output 03/26/17 03/26/17 03/27/17 15:00 23:00 07:00 Intake Total 0 ml Output Total 885 ml Balance -885 ml DANN ROQUE MD Mar 26, 2017 15:06
[2017-03-26] MEDS: CHLORHEXIDINE 0.12% 15 ML MOUTHWASH. MM SCH (21:11)
[2017-03-26] MEDS: HEPARIN PF for SUB-Q USE 5,000 UNIT/0.5 ML VIAL. SQ SCH (21:17)
[2017-03-27] VITALS (23 sets, daily range): BP systolic 100–140; BP diastolic 61–84
[2017-03-27] MEDS: PROPOFOL 100 ML IV PRN ×4 (00:51→11:00)
[2017-03-27] MEDS: AMINO AC 3%/ELECTROLYTE/GLYCER 1,000 ML IV SCH (06:09)
[2017-03-27] MEDS: PIPERACILLIN/TAZOBACTAM 2.25 GM in IV NORMAL SALINE 50ML 50 ML IV SCH ×3 (06:09→22:37)
--- NOTE | 2017-03-27 06:33 | PDOC ---
Infectious Disease Note Subjective Subjective Sedated, moved her head Intubated PPN ROS ROS Unobtainable Vital Sign Vital Signs Vital Signs Date Time Temp Pulse Resp B/P (MAP) Pulse Ox O2 Delivery O2 Flow Rate FiO2 03/27/17 06:00 84 16 120/67 (84) 100 Ventilator 03/27/17 04:00 98.3 98.3 Physical Exam PHYSICAL EXAM GENERAL: Intubated and sedated but did move her head HEENT: ROSA ISELA. ETT. OGT LUNGS: Clear HEART: S1 and S2, regular ABD: Obese, soft, BS active EXT: Generalized trace edema, no cyanosis [employer]: Unresponsive/sedated SKIN: No rash. Left femoral Trialysis: PICC RUE Labs Lab Laboratory Tests Test 03/26/17 09:10 03/26/17 14:25 O2 Saturation 99 % (92-99) 98 % (92-99) Arterial Blood pH 7.43 (7.35-7.45) 7.48 (7.35-7.45) Arterial Blood pCO2 at Patient Temp 31 mmHg (35-46) 34 mmHg (35-46) Arterial Blood pO2 at Patient Temp 141 mmHg (85-108) 115 mmHg (85-108) Arterial Blood HCO3 20 mmol/L (21-28) 24 mmol/L (21-28) Arterial Blood Base Excess -3 mmol/L (-3-3) 1 mmol/L (-3-3) FiO2 40 40 Objective Assessment Leukocytosis - better Acute encephalopathy Seizure s/p vomiting 03/25. 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
[2017-03-27 06:44] LABS: BASO # 0.1 x10^3/uL (0.0-0.2); BASO % 1 % (0-3); EOS % 4 % (0-3); HEMATOCRIT 29.4 % (36.0-47.0); HEMOGLOBIN 9.9 g/dL (12.0-15.5); LYMPH # 1.9 x10^3/uL (1.0-4.8); LYMPH % 19 % (24-48); MEAN CORPUSCULAR HEMOGLOBIN 30 pg (25-35); MEAN CORPUSCULAR HGB CONC 34 g/dL (31-37); MEAN CORPUSCULAR VOLUME 89 fL (79-100); MONO % 7 % (0-9); NEUT % 69 % (31-73); PLATELET COUNT 284 x10^3/uL (140-400); RED CELL DISTRIBUTION WIDTH 15.6 % (11.5-14.5); WHITE BLOOD COUNT 10.1 x10^3/uL (4.0-11.0)
[2017-03-27 07:06] LABS: ALBUMIN 1.7 g/dL (3.4-5.0); ALBUMIN/GLOBULIN RATIO 0.4 (1.0-1.7); CALCIUM 8.6 mg/dL (8.5-10.1); CREATININE 4.4 mg/dL (0.6-1.0); GFR 11.9; PHOSPHORUS 3.3 mg/dL (2.6-4.7); POTASSIUM 3.7 mmol/L (3.5-5.1); TOTAL BILIRUBIN 0.3 mg/dL (0.2-1.0); TOTAL PROTEIN 5.7 g/dL (6.4-8.2)
[2017-03-27] MEDS: DOCUSATE SODIUM 100 MG CAPSULE. PO SCH ×2 (07:31→21:00)
[2017-03-27] MEDS: CHLORHEXIDINE 0.12% 15 ML MOUTHWASH. MM SCH (07:45)
[2017-03-27] MEDS ORDERED: HEPARIN for IV BOLUS 10,000 UNIT/10 ML VIAL. ONE (08:15)
[2017-03-27] MEDS ORDERED: LIDOCAINE 1%/EPI 1:100,000 20 ML VIAL. ONE (08:15)
[2017-03-27 08:35] LABS: INR 1.3 (0.8-1.1)
[2017-03-27 08:45] LABS: HCO3 ABG 26 mmol/L (21-28); PCO2 ABG 37 mmHg (35-46); PH ABG 7.46 (7.35-7.45); PO2 ABG 119 mmHg (85-108); SAT O2 ABG 98 % (92-99)
[2017-03-27] MEDS: HEPARIN PF for SUB-Q USE 5,000 UNIT/0.5 ML VIAL. SQ SCH ×2 (09:00→22:40)
[2017-03-27 09:56] LABS: FIO2 ABG 40
[2017-03-27] MEDS ORDERED: LIDOCAINE 1%/EPI 1:100,000 20 ML VIAL. INJ ONE (10:30)
--- NOTE | 2017-03-27 10:48 | PDOC ---
PROGRESS NOTES Assessment Seizures, new onset, provoked. Metabolic encephalopathy. Acute respiratory failure. Acute renal failure. Leukocytosis. Acute appendicitis s/p appendectomy. Hypoalbuminemia. DM. Obesity. Plan Brain MRI without contrast planned for today Ativan 2 mg IV PRN seizure. Keppra 750 mg IV q12h. If still has seizures, add Vimpat 100 mg IV q12h. Discussed with family Subjective None Objective Vital Signs Date Time Temp Pulse Resp B/P (MAP) Pulse Ox O2 Delivery O2 Flow Rate FiO2 03/27/17 09:50 100 Ventilator 03/27/17 09:00 76 15 122/67 (85) 03/27/17 07:00 98.8 98.8 Intake and Output 03/28/17 07:00 Output Total 125 ml Balance -125 ml Output Urine Total 125 ml PHYSICAL EXAM Sedated, on ventilator PERRL. EOMI. CN: no focal findings. Muscle tone: normal. Muscle strength: not cooperative with exam DTR: 0-1+ Plantar reflex: flexor Gait: not examined in bed. Sensory exam: not cooperative with exam Cerebellar: not cooperative with exam Review of Relevant I have reviewed the following items na (where applicable) has been applied. Labs Laboratory Tests Test 03/25/17 13:29 03/25/17 13:30 03/25/17 13:42 03/25/17 15:00 Glucose (Fingerstick) 133 mg/dL (70-99) White Blood Count 21.6 x10^3/uL (4.0-11.0) Red Blood Count 4.16 x10^6/uL (3.50-5.40) Hemoglobin 12.3 g/dL (12.0-15.5) Hematocrit 37.2 % (36.0-47.0) Mean Corpuscular Volume 90 fL (79-100) Mean Corpuscular Hemoglobin 30 pg (25-35) Mean Corpuscular Hemoglobin Concent 33 g/dL (31-37) Red Cell Distribution Width 15.7 % (11.5-14.5) Platelet Count 539 x10^3/uL (140-400) Neutrophils (%) (Auto) 64 % (31-73) Lymphocytes (%) (Auto) 27 % (24-48) Monocytes (%) (Auto) 6 % (0-9) Eosinophils (%) (Auto) 1 % (0-3) Basophils (%) (Auto) 2 % (0-3) Neutrophils # (Auto) 13.8 x10^3uL (1.8-7.7) Lymphocytes # (Auto) 5.9 x10^3/uL (1.0-4.8) Monocytes # (Auto) 1.3 x10^3/uL (0.0-1.1) Eosinophils # (Auto) 0.3 x10^3/uL (0.0-0.7) Basophils # (Auto) 0.4 x10^3/uL (0.0-0.2) Segmented Neutrophils % 61 % (35-66) Band Neutrophils % 4 % (0-9) Lymphocytes % 26 % (24-48) Atypical Lymphocytes % (Manual) 5 % (0-0) Monocytes % 3 % (0-10) Eosinophils % 1 % (0-5) Platelet Estimate Increased (ADEQUATE) Giant Platelets Few Anisocytosis Slight Sodium Level 146 mmol/L (136-145) Potassium Level 3.9 mmol/L (3.5-5.1) Chloride Level 106 mmol/L (98-107) Carbon Dioxide Level 25 mmol/L (21-32) Anion Gap 15 (6-14) Blood Urea Nitrogen 30 mg/dL (7-20) Creatinine 6.3 mg/dL (0.6-1.0) Estimated GFR (Cockcroft-Gault) 7.9 BUN/Creatinine Ratio 5 (6-20) Glucose Level 145 mg/dL (70-99) Calcium Level 9.7 mg/dL (8.5-10.1) Total Bilirubin 0.3 mg/dL (0.2-1.0) Aspartate Amino Transf (AST/SGOT) 17 U/L (15-37) Alanine Aminotransferase (ALT/SGPT) 20 U/L (14-59) Alkaline Phosphatase 67 U/L (46-116) Creatine Kinase 26 U/L (26-192) Total Protein 7.2 g/dL (6.4-8.2) Albumin 2.3 g/dL (3.4-5.0) Albumin/Globulin Ratio 0.5 (1.0-1.7) Thyroid Stimulating Hormone (TSH) 11.117 uIU/mL (0.358-3.74) O2 Saturation 91 % (92-99) Arterial Blood pH 7.26 (7.35-7.45) Arterial Blood pCO2 at Patient Temp 36 mmHg (35-46) Arterial Blood pO2 at Patient Temp 74 mmHg (85-108) Arterial Blood HCO3 16 mmol/L (21-28) Arterial Blood Base Excess -10 mmol/L (-3-3) FiO2 100 Nasal Screen MRSA (PCR) Negative (Negative) Test 03/25/17 17:00 03/25/17 19:30 03/26/17 06:05 03/26/17 09:10 Urine Opiates Screen Neg (NEG) Urine Methadone Screen Neg (NEG) Urine Barbiturates Neg (NEG) Urine Phencyclidine Screen Neg (NEG) Urine Amphetamine/Methamphetamine Neg (NEG) Urine Benzodiazepines Screen Pos (NEG) Urine Cocaine Screen Neg (NEG) Urine Cannabinoids Screen Neg (NEG) Urine Ethyl Alcohol Neg (NEG) O2 Saturation 98 % (92-99) 99 % (92-99) Arterial Blood pH 7.46 (7.35-7.45) 7.43 (7.35-7.45) Arterial Blood pCO2 at Patient Temp 36 mmHg (35-46) 31 mmHg (35-46) Arterial Blood pO2 at Patient Temp 128 mmHg (85-108) 141 mmHg (85-108) Arterial Blood HCO3 25 mmol/L (21-28) 20 mmol/L (21-28) Arterial Blood Base Excess 1 mmol/L (-3-3) -3 mmol/L (-3-3) FiO2 90 40 White Blood Count 17.3 x10^3/uL (4.0-11.0) Red Blood Count 3.64 x10^6/uL (3.50-5.40) Hemoglobin 10.8 g/dL (12.0-15.5) Hematocrit 33.0 % (36.0-47.0) Mean Corpuscular Volume 91 fL (79-100) Mean Corpuscular Hemoglobin 30 pg (25-35) Mean Corpuscular Hemoglobin Concent 33 g/dL (31-37) Red Cell Distribution Width 15.8 % (11.5-14.5) Platelet Count 460 x10^3/uL (140-400) Neutrophils (%) (Auto) 70 % (31-73) Lymphocytes (%) (Auto) 22 % (24-48) Monocytes (%) (Auto) 6 % (0-9) Eosinophils (%) (Auto) 0 % (0-3) Basophils (%) (Auto) 1 % (0-3) Neutrophils # (Auto) 12.2 x10^3uL (1.8-7.7) Lymphocytes # (Auto) 3.7 x10^3/uL (1.0-4.8) Monocytes # (Auto) 1.1 x10^3/uL (0.0-1.1) Eosinophils # (Auto) 0.1 x10^3/uL (0.0-0.7) Basophils # (Auto) 0.2 x10^3/uL (0.0-0.2) Sodium Level 142 mmol/L (136-145) Potassium Level 3.9 mmol/L (3.5-5.1) Chloride Level 106 mmol/L (98-107) Carbon Dioxide Level 25 mmol/L (21-32) Anion Gap 11 (6-14) Blood Urea Nitrogen 27 mg/dL (7-20) Creatinine 4.6 mg/dL (0.6-1.0) Estimated GFR (Cockcroft-Gault) 11.3 Glucose Level 123 mg/dL (70-99) Lactic Acid Level 1.2 mmol/L (0.4-2.0) Calcium Level 8.0 mg/dL (8.5-10.1) Phosphorus Level 3.9 mg/dL (2.6-4.7) Albumin 1.8 g/dL (3.4-5.0) Free Thyroxine 1.24 ng/dL (0.76-1.46) Free Triiodothyronine (T3) pg/mL 1.67 pg/mL (2.18-3.98) Test 03/26/17 14:25 03/27/17 06:10 03/27/17 08:06 03/27/17 08:45 O2 Saturation 98 % (92-99) 98 % (92-99) Arterial Blood pH 7.48 (7.35-7.45) 7.46 (7.35-7.45) Arterial Blood pCO2 at Patient Temp 34 mmHg (35-46) 37 mmHg (35-46) Arterial Blood pO2 at Patient Temp 115 mmHg (85-108) 119 mmHg (85-108) Arterial Blood HCO3 24 mmol/L (21-28) 26 mmol/L (21-28) Arterial Blood Base Excess 1 mmol/L (-3-3) 2 mmol/L (-3-3) FiO2 40 40 White Blood Count 10.1 x10^3/uL (4.0-11.0) Red Blood Count 3.30 x10^6/uL (3.50-5.40) Hemoglobin 9.9 g/dL (12.0-15.5) Hematocrit 29.4 % (36.0-47.0) Mean Corpuscular Volume 89 fL (79-100) Mean Corpuscular Hemoglobin 30 pg (25-35) Mean Corpuscular Hemoglobin Concent 34 g/dL (31-37) Red Cell Distribution Width 15.6 % (11.5-14.5) Platelet Count 284 x10^3/uL (140-400) Neutrophils (%) (Auto) 69 % (31-73) Lymphocytes (%) (Auto) 19 % (24-48) Monocytes (%) (Auto) 7 % (0-9) Eosinophils (%) (Auto) 4 % (0-3) Basophils (%) (Auto) 1 % (0-3) Neutrophils # (Auto) 7.0 x10^3uL (1.8-7.7) Lymphocytes # (Auto) 1.9 x10^3/uL (1.0-4.8) Monocytes # (Auto) 0.7 x10^3/uL (0.0-1.1) Eosinophils # (Auto) 0.4 x10^3/uL (0.0-0.7) Basophils # (Auto) 0.1 x10^3/uL (0.0-0.2) Sodium Level 141 mmol/L (136-145) Potassium Level 3.7 mmol/L (3.5-5.1) Chloride Level 106 mmol/L (98-107) Carbon Dioxide Level 26 mmol/L (21-32) Anion Gap 9 (6-14) Blood Urea Nitrogen 31 mg/dL (7-20) Creatinine 4.4 mg/dL (0.6-1.0) Estimated GFR (Cockcroft-Gault) 11.9 BUN/Creatinine Ratio 7 (6-20) Glucose Level 94 mg/dL (70-99) Calcium Level 8.6 mg/dL (8.5-10.1) Phosphorus Level 3.3 mg/dL (2.6-4.7) Total Bilirubin 0.3 mg/dL (0.2-1.0) Aspartate Amino Transf (AST/SGOT) 27 U/L (15-37) Alanine Aminotransferase (ALT/SGPT) 32 U/L (14-59) Alkaline Phosphatase 54 U/L (46-116) Total Protein 5.7 g/dL (6.4-8.2) Albumin 1.7 g/dL (3.4-5.0) Albumin/Globulin Ratio 0.4 (1.0-1.7) Prothrombin Time 15.0 SEC (11.7-14.0) Prothromb Time International Ratio 1.3 (0.8-1.1) Activated Partial Thromboplast Time 27 SEC (24-38) Laboratory Tests Test 03/26/17 14:25 03/27/17 06:10 03/27/17 08:06 03/27/17 08:45 O2 Saturation 98 % (92-99) 98 % (92-99) Arterial Blood pH 7.48 (7.35-7.45) 7.46 (7.35-7.45) Arterial Blood pCO2 at Patient Temp 34 mmHg (35-46) 37 mmHg (35-46) Arterial Blood pO2 at Patient Temp 115 mmHg (85-108) 119 mmHg (85-108) Arterial Blood HCO3 24 mmol/L (21-28) 26 mmol/L (21-28) Arterial Blood Base Excess 1 mmol/L (-3-3) 2 mmol/L (-3-3) FiO2 40 40 White Blood Count 10.1 x10^3/uL (4.0-11.0) Red Blood Count 3.30 x10^6/uL (3.50-5.40) Hemoglobin 9.9 g/dL (12.0-15.5) Hematocrit 29.4 % (36.0-47.0) Mean Corpuscular Volume 89 fL (79-100) Mean Corpuscular Hemoglobin 30 pg (25-35) Mean Corpuscular Hemoglobin Concent 34 g/dL (31-37) Red Cell Distribution Width 15.6 % (11.5-14.5) Platelet Count 284 x10^3/uL (140-400) Neutrophils (%) (Auto) 69 % (31-73) Lymphocytes (%) (Auto) 19 % (24-48) Monocytes (%) (Auto) 7 % (0-9) Eosinophils (%) (Auto) 4 % (0-3) Basophils (%) (Auto) 1 % (0-3) Neutrophils # (Auto) 7.0 x10^3uL (1.8-7.7) Lymphocytes # (Auto) 1.9 x10^3/uL (1.0-4.8) Monocytes # (Auto) 0.7 x10^3/uL (0.0-1.1) Eosinophils # (Auto) 0.4 x10^3/uL (0.0-0.7) Basophils # (Auto) 0.1 x10^3/uL (0.0-0.2) Sodium Level 141 mmol/L (136-145) Potassium Level 3.7 mmol/L (3.5-5.1) Chloride Level 106 mmol/L (98-107) Carbon Dioxide Level 26 mmol/L (21-32) Anion Gap 9 (6-14) Blood Urea Nitrogen 31 mg/dL (7-20) Creatinine 4.4 mg/dL (0.6-1.0) Estimated GFR (Cockcroft-Gault) 11.9 BUN/Creatinine Ratio 7 (6-20) Glucose Level 94 mg/dL (70-99) Calcium Level 8.6 mg/dL (8.5-10.1) Phosphorus Level 3.3 mg/dL (2.6-4.7) Total Bilirubin 0.3 mg/dL (0.2-1.0) Aspartate Amino Transf (AST/SGOT) 27 U/L (15-37) Alanine Aminotransferase (ALT/SGPT) 32 U/L (14-59) Alkaline Phosphatase 54 U/L (46-116) Total Protein 5.7 g/dL (6.4-8.2) Albumin 1.7 g/dL (3.4-5.0) Albumin/Globulin Ratio 0.4 (1.0-1.7) Prothrombin Time 15.0 SEC (11.7-14.0) Prothromb Time International Ratio 1.3 (0.8-1.1) Activated Partial Thromboplast Time 27 SEC (24-38) Microbiology 03/25/17 Blood Culture - Preliminary, Resulted NO GROWTH AFTER 1 DAY Medications Current Medications Dexamethasone Sodium Phosphate (Decadron) 20 mg STK-MED ONCE .ROUTE ; Start 03/15/17 at 14:06; Stop 03/15/17 at 14:07; Status DC Ondansetron HCl (Zofran) 4 mg STK-MED ONCE .ROUTE ; Start 03/15/17 at 14:06; Stop 03/15/17 at 14:07; Status DC Propofol 20 ml @ As Directed STK-MED ONCE IV ; Start 03/15/17 at 14:06; Stop at 14:07; Status DC Lidocaine HCl (Lidocaine Pf 2% Vial) 5 ml STK-MED ONCE .ROUTE ; Start 03/15/17 at 14:06; Stop 03/15/17 at 14:07; Status DC Midazolam HCl (Versed) 2 mg STK-MED ONCE .ROUTE ; Start 03/15/17 at 14:06; Stop 03/15/17 at 14:07; Status DC Fentanyl Citrate (Fentanyl 2ml Vial) 100 mcg STK-MED ONCE .ROUTE ; Start at 14:06; Stop 03/15/17 at 14:07; Status DC Rocuronium Hollins (Zemuron) 100 mg STK-MED ONCE .ROUTE ; Start 03/15/17 at 14: 07; Stop 03/15/17 at 14:08; Status DC Succinylcholine Chloride (Anectine) 200 mg STK-MED ONCE .ROUTE ; Start 03/15/17 at 14:07; Stop 03/15/17 at 14:08; Status DC Bupivacaine HCl/ Epinephrine Bitart (Marcaine-Epi 0.5%-[id number]) 50 ml STK-MED ONCE .ROUTE Last administered on 03/15/17 14:54; Start 03/15/17 at 13:07; Stop 03/15/17 at 14:08; Status DC Cefoxitin Sodium 2 gm/Sodium Chloride 100 ml @ 200 mls/hr 1X PREOP IV Last administered on 03/15/17 14:55; Start 03/15/17 at 16:00; Stop 03/16/17 at 14:41 ; Status DC Sodium Chloride 1,000 ml @ 125 mls/hr 1X ONCE IV Last administered on 10/4/ 17at 14:15; Start 03/15/17 at 14:15; Stop 03/15/17 at 22:14; Status DC Cefoxitin Sodium 100 ml @ As Directed STK-MED ONCE IV ; Start 03/15/17 at 14:53 ; Stop 03/15/17 at 14:54; Status DC Enoxaparin Sodium (Lovenox 40mg Syringe) 40 mg Q24H SQ ; Start 03/15/17 at 15:30 ; Stop 03/16/17 at 14:38; Status DC Sodium Chloride (Normal Saline Flush) 3 ml QSHIFT PRN IV AFTER MEDS AND BLOOD DRAWS; Start 03/15/17 at 15:30 Ringer's Solution 1,000 ml @ 75 mls/hr [id number] IV Last administered on 21:12; Start 03/15/17 at 15:19 Acetaminophen/ Hydrocodone Bitart (Lortab 5/325) 1 tab PRN Q4HRS PRN PO MILD PAIN Last administered on 03/16/17 02:56; Start 03/15/17 at 15:30; Stop at 13:05; Status DC Ketorolac Tromethamine (Toradol) 15 mg PRN Q6HRS PRN IV PAIN; Start 03/15/17 at 15:30; Stop 03/16/17 at 09:05; Status DC Morphine Sulfate 2 mg PRN Q1HR PRN IV PAIN Last administered on 03/22/17 09: 36; Start 03/15/17 at 15:30 Docusate Sodium (Colace) 100 mg BID PO Last administered on 03/17/17 13:04; Start 03/15/17 at 21:00 Ondansetron HCl (Zofran) 4 mg PRN Q6HRS PRN IV NAUESA, 1ST CHOICE Last administered on 03/22/17 06:34; Start 03/15/17 at 15:30; Stop 03/22/17 at 09: 09; Status DC Piperacillin Sod/ Tazobactam Sod 3.375 gm/Sodium Chloride 50 ml @ 100 mls/hr Q6HRS IV Last administered on 03/21/17 06:20; Start 03/15/17 at 18:00; Stop 03/21/17 at 09:24; Status DC Morphine Sulfate 10 mg STK-MED ONCE .ROUTE ; Start 03/15/17 at 15:32; Stop 03/15 at 15:33; Status DC Ringer's Solution 1,000 ml @ 125 mls/hr Q8H IV Last administered on 03/16/17 00:51; Start 03/15/17 at 15:42; Stop 03/16/17 at 03:41; Status DC Lidocaine HCl (Xylocaine-Mpf 1% Vial) 0.5 ml 1X PRN PRN INJ IV START; Start at 15:45; Stop 03/16/17 at 15:44; Status DC Ringer's Solution 1,000 ml @ 125 mls/hr Q8H IV ; Start 03/15/17 at 15:42; Stop 03/15/17 at 21:41; Status DC Fentanyl Citrate (Fentanyl 2ml Vial) 25 mcg PRN Q5MIN PRN IV Acute Pain; Start 03/15/17 at 15:45; Stop 03/16/17 at 09:05; Status DC Fentanyl Citrate (Fentanyl 2ml Vial) 50 mcg PRN Q5MIN PRN IV Acute Pain Last administered on 03/15/17 15:58; Start 03/15/17 at 15:45; Stop 03/16/17 at 09:05 ; Status DC Morphine Sulfate 2 mg PRN Q10MIN PRN IV Mild Pain; Start 03/15/17 at 15:45; Stop 03/16/17 at 09:05; Status DC Morphine Sulfate 4 mg PRN Q10MIN PRN IV Moderate Pain; Start 03/15/17 at 15:45 ; Stop 03/16/17 at 09:05; Status DC Ondansetron HCl (Zofran) 4 mg PRN Q6HRS PRN IV Nausea, 1st Choice; Start at 15:45; Stop 03/16/17 at 09:05; Status DC Metoclopramide HCl (Reglan) 10 mg PRN Q6HRS PRN IV Nausea/Vomiting, 2nd Choice Last administered on 03/15/17 18:49; Start 03/15/17 at 15:45; Stop 03/16/17 at 15:44; Status DC Diphenhydramine HCl (Benadryl) 12.5 mg PRN Q2HR PRN IV ITCHING; Start 03/15/17 at 15:45; Stop 03/16/17 at 15:44; Status DC Albuterol Sulfate (Ventolin Neb Soln) 2.5 mg PRN 1X PRN NEB Shortness of Breath , Wheezing; Start 03/15/17 at 15:45; Stop 03/16/17 at 15:44; Status DC Dexamethasone Sodium Phosphate (Decadron) 8 mg 1X PRN PRN IV 3RD CHOICE FOR NAUSEA; Start 03/15/17 at 15:45; Stop 03/16/17 at 15:44; Status DC Meperidine HCl (Demerol) 10 mg 1X PERIOP PRN IV SHIVERING; Start 03/15/17 at 15 :45; Stop 03/16/17 at 15:44; Status DC Meperidine HCl (Demerol) 15 mg 1X PERIOP PRN IV SHIVERING; Start 03/15/17 at 15 :45; Stop 03/16/17 at 15:44; Status DC Prochlorperazine Edisylate (Compazine) 10 mg STK-MED ONCE .ROUTE ; Start at 15:48; Stop 03/15/17 at 15:49; Status DC Prochlorperazine Maleate (Compazine) 5 mg 1X PACU PRN PO NAUSEA/VOMITING; Start 03/15/17 at 16:00; Stop 03/19/17 at 19:03; Status DC Hydromorphone HCl (Dilaudid) 0.5 mg PRN Q10MIN PRN IV PAIN Last administered on 03/15/17 16:52; Start 03/15/17 at 16:15; Stop 03/16/17 at 09:05; Status DC Acetaminophen/ Hydrocodone Bitart (Lortab 5/325) 2 tab PRN Q4HRS PRN PO PAIN Last administered on 03/16/17 10:16; Start 03/16/17 at 09:15; Stop 03/16/17 at 13:05; Status DC Multivitamins (Thera M Plus) 1 tab DAILY PO Last administered on 03/26/17 07: 42; Start 03/16/17 at 13:00 Pantoprazole Sodium (Protonix) 40 mg DAILYAC PO Last administered on 03/20/17 08:48; Start 03/16/17 at 13:00; Stop 03/20/17 at 11:14; Status DC Oxycodone/ Acetaminophen (Percocet 7.5/ 325) 1 tab PRN Q4HRS PRN PO PAIN Last administered on 03/23/17 14:59; Start 03/16/17 at 13:15 Morphine Sulfate 4 mg PRN Q2HR PRN IV PAIN Last administered on 03/18/17 14:11 ; Start 03/16/17 at 13:15 Enoxaparin Sodium (Lovenox 40mg Syringe) 40 mg Q12HR SQ Last administered on 08:47; Start 03/16/17 at 21:00; Stop 03/20/17 at 16:57; Status DC Iohexol (Omnipaque 300 Mg/ml) 75 ml 1X ONCE IV Last administered on 03/17/17 08:00; Start 03/17/17 at 08:00; Stop 03/17/17 at 08:01; Status DC Iohexol (Omnipaque 240 Mg/ml) 50 ml 1X ONCE PO Last administered on 03/17/17 08:00; Start 03/17/17 at 08:00; Stop 03/17/17 at 08:01; Status DC Info (Do NOT chart on this entry -- for MONITORING) 1 each PRN DAILY PRN MC SEE COMMENTS; Start 03/17/17 at 07:45; Stop 03/19/17 at 07:44; Status DC Sodium Chloride 1,000 ml @ 1,000 mls/hr 1X ONCE IV Last administered on 08:00; Start 03/17/17 at 08:00; Stop 03/17/17 at 08:59; Status DC Vancomycin HCl (Vanco Per Pharmacy) 1 each PRN DAILY PRN MC SEE COMMENTS Last administered on 03/18/17 14:24; Start 03/17/17 at 08:00; Stop 03/19/17 at 11:10 ; Status DC Fluconazole/ Sodium Chloride 200 ml @ 100 mls/hr Q24H IV Last administered on 03/21/17 08:07; Start 03/17/17 at 09:00; Stop 03/21/17 at 09:24; Status DC Vancomycin HCl 2 gm/Sodium Chloride 500 ml @ 250 mls/hr 1X ONCE IV Last administered on 03/17/17 13:08; Start 03/17/17 at 09:00; Stop 03/17/17 at 10:59 ; Status DC Acetaminophen (Tylenol) 650 mg PRN Q6HRS PRN PO FEVER Last administered on 16:34; Start 03/17/17 at 08:15 Vancomycin HCl 2 gm/Sodium Chloride 500 ml @ 250 mls/hr Q8H IV Last administered on 03/19/17 05:41; Start 03/17/17 at 22:00; Stop 03/19/17 at 11:10 ; Status DC Vancomycin HCl 1 each 1X ONCE MC ; Start 03/18/17 at 13:30; Stop 03/18/17 at 13 :31; Status DC Calcium Carbonate/ Glycine (Tums) 1,000 mg PRN Q4HRS PRN PO INDIGESTION Last administered on 03/17/17 23:57; Start 03/17/17 at 23:45 Potassium Chloride (Klor-Con) 40 meq 1X ONCE PO Last administered on 14:14; Start 03/18/17 at 12:45; Stop 03/18/17 at 12:46; Status DC Vancomycin HCl 1 each 1X ONCE MC ; Start 03/19/17 at 13:30; Stop 03/19/17 at 13 :30; Status DC Sodium Chloride 1,000 ml @ 1,000 mls/hr 1X ONCE IV Last administered on 14:28; Start 03/19/17 at 12:15; Stop 03/19/17 at 13:14; Status DC Pantoprazole Sodium (Protonix) 40 mg BIDAC PO Last administered on 03/25/17 08:31; Start 03/20/17 at 16:30; Stop 03/25/17 at 16:05; Status DC Simethicone (Gas-X) 80 mg PRN AFTMEALHC PRN PO GAS / BLOATING Last administered on 03/22/17 08:55; Start 03/20/17 at 11:15 Al Hydroxide/Mg Hydroxide (Mylanta Plus Xs) 30 ml PRN Q2HR PRN PO HEARTBURN / GAS; Start 03/20/17 at 11:15 Enoxaparin Sodium (Lovenox 40mg Syringe) 40 mg DAILY SQ Last administered on 08:09; Start 03/21/17 at 09:00; Stop 03/22/17 at 12:42; Status DC Fluconazole/ Sodium Chloride 100 ml @ 100 mls/hr Q24H IV ; Start 03/22/17 at 09:00; Stop 03/22/17 at 09:00; Status DC Piperacillin Sod/ Tazobactam Sod 3.375 gm/Sodium Chloride 50 ml @ 100 mls/hr Q12HR IV ; Start 03/21/17 at 21:00; Stop 03/21/17 at 21:00; Status DC Fluconazole/ Sodium Chloride 100 ml @ 100 mls/hr Q24H IV Last administered on 03/22/17 09:30; Start 03/22/17 at 09:00; Stop 03/23/17 at 10:05; Status DC Piperacillin Sod/ Tazobactam Sod 2.25 gm/Sodium Chloride 50 ml @ 100 mls/hr Q6HRS IV Last administered on 03/23/17 05:58; Start 03/21/17 at 12:00; Stop 03/23/17 at 10:05; Status DC Ondansetron HCl (Zofran) 8 mg PRN Q8HRS PRN IV NAUESA, 1ST CHOICE Last administered on 03/25/17 06:17; Start 03/22/17 at 09:15 Prochlorperazine Edisylate (Compazine) 10 mg PRN Q8HRS PRN IV NAUSEA/VOMITING - 2nd choice Last administered on 03/25/17 10:23; Start 03/22/17 at 09:15 Amino Acids/ Glycerin/ Electrolytes 1,000 ml @ 80 mls/hr [id number] IV Last administered on 03/27/17 06:09; Start 03/22/17 at 11:45 Heparin Sodium (Porcine) (Heparin Sq) 5,000 unit Q8HRS SQ Last administered on 03/25/17 06:07; Start 03/22/17 at 14:00; Stop 03/25/17 at 08:45; Status DC Loperamide HCl (Imodium) 2 mg PRN Q15MIN PRN PO DIARRHEA; Start 03/23/17 at 08 :00 Amoxicillin/ Clavulanate Potassium (Augmentin 500/ 125mg) 1 tab BID PO Last administered on 03/25/17 08:31; Start 03/23/17 at 10:30; Stop 03/25/17 at 14 :03; Status DC Promethazine HCl (Phenergan) 25 mg PRN Q6HRS PRN OR NAUSEA/VOMITING; Start 05/28 at 15:15 Furosemide (Lasix) 80 mg 1X ONCE IVP Last administered on 03/24/17 12:13; Start 03/24/17 at 11:30; Stop 03/24/17 at 11:31; Status DC Iohexol (Omnipaque 240 Mg/ml) 50 ml 1X ONCE PO Last administered on 09:30; Start 03/25/17 at 09:30; Stop 03/25/17 at 09:31; Status DC Iohexol (Omnipaque 240 Mg/ml) 50 ml 1X ONCE PO Last administered on 12:32; Start 03/25/17 at 12:30; Stop 03/25/17 at 12:31; Status DC Lorazepam (Ativan) 1 mg 1X ONCE IV Last administered on 03/25/17 13:40; Start 03/25/17 at 14:00; Stop 03/25/17 at 14:01; Status DC Piperacillin Sod/ Tazobactam Sod 2.25 gm/Sodium Chloride 50 ml @ 100 mls/hr Q8HRS IV Last administered on 03/27/17 06:09; Start 03/25/17 at 15:00 Levetiracetam 500 mg/Sodium Chloride 100 ml @ 400 mls/hr Q12HR IV ; Start at 15:00; Stop 03/25/17 at 15:00; Status DC Lorazepam (Ativan) 2 mg PRN Q1HR PRN IV SEIZURE Last administered on 14:30; Start 03/25/17 at 14:15; Stop 03/25/17 at 15:27; Status DC Levetiracetam 750 mg/Sodium Chloride 107.5 ml @ 400 mls/hr Q12HR IV Last administered on 03/26/17 21:11; Start 03/25/17 at 15:00 Digoxin (Lanoxin) 500 mcg 1X ONCE IV Last administered on 03/25/17 14:34; Start 03/25/17 at 14:30; Stop 03/25/17 at 14:31; Status DC Norepinephrine Bitartrate 250 ml @ 0 mls/hr CONT PRN IV SEE I/O RECORD Last administered on 03/25/17 21:53; Start 03/25/17 at 14:30 Sodium Chloride 1,000 ml @ 1,000 mls/hr 1X ONCE IV Last administered on 03/25 15:38; Start 03/25/17 at 15:00; Stop 03/25/17 at 15:59; Status DC Lorazepam (Ativan) 2 mg PRN Q4HRS PRN IV SEIZURE Last administered on 15:55; Start 03/25/17 at 15:30 Propofol 100 ml @ As Directed STK-MED ONCE IV ; Start 03/25/17 at 15:28; Stop 03/25/17 at 15:29; Status DC Propofol 100 ml @ 0 mls/hr CONT PRN IV SEE I/O RECORD Last administered on 06:09; Start 03/25/17 at 15:45 Sodium Bicarbonate 150 meq 1X ONCE IV Last administered on 03/25/17 15:43; Start 03/25/17 at 16:00; Stop 03/25/17 at 16:01; Status DC Adenosine (Adenocard) 6 mg 1X ONCE IV Last administered on 03/25/17 15:42; Start 03/25/17 at 16:15; Stop 03/25/17 at 16:16; Status DC Adenosine (Adenocard) 12 mg 1X ONCE IV Last administered on 03/25/17 15:48; Start 03/25/17 at 16:00; Stop 03/25/17 at 16:01; Status DC Midazolam HCl (Versed) 5 mg 1X ONCE IV Last administered on 03/25/17 15:48; Start 03/25/17 at 16:00; Stop 03/25/17 at 16:01; Status DC Pantoprazole Sodium (Protonix Vial) 40 mg BID IVP Last administered on 21:12; Start 03/25/17 at 21:00 Sodium Chloride 1,000 ml @ 1,000 mls/hr Q1H PRN IV hypotension; Start at 16:30; Stop 03/25/17 at 22:29; Status DC Sodium Chloride (Normal Saline Flush) 10 ml 1X PRN PRN IV AP catheter pack; Start 03/25/17 at 16:30; Stop 03/26/17 at 08:54; Status DC Sodium Chloride (Normal Saline Flush) 10 ml 1X PRN PRN IV [employer]ER catheter pack; Start 03/25/17 at 16:30; Stop 03/26/17 at 08:54; Status DC Sodium Chloride 1,000 ml @ 400 mls/hr Q2H30M PRN IV PATENCY; Start 03/25/17 at 16:30; Stop 03/26/17 at 04:29; Status DC Info (PHARMACY MONITORING -- do not chart) 1 each PRN DAILY PRN MC SEE COMMENTS ; Start 03/25/17 at 16:30 Info (PHARMACY MONITORING -- do not chart) 1 each PRN DAILY PRN MC SEE COMMENTS ; Start 03/25/17 at 16:30; Status UNV Acetaminophen (Tylenol) 650 mg PRN Q6HRS PRN PEG MILD PAIN / TEMP Last administered on 03/25/17t 18:44; Start 03/25/17 at 18:30 Fentanyl Citrate 30 ml @ 0 mls/hr CONT PRN PRN IV PROTOCOL; Start 03/25/17 at 19:15 Sodium Chloride 1,000 ml @ 1,000 mls/hr Q1H PRN IV hypotension; Start at 08:46; Stop 03/26/17 at 14:45; Status DC Sodium Chloride (Normal Saline Flush) 10 ml 1X PRN PRN IV AP catheter pack; Start 03/26/17 at 09:00; Stop 03/27/17 at 08:59; Status DC Sodium Chloride (Normal Saline Flush) 10 ml 1X PRN PRN IV W[employer]UCKER catheter pack; Start 03/26/17 at 09:00; Stop 03/27/17 at 08:59; Status DC Sodium Chloride 1,000 ml @ 400 mls/hr Q2H30M PRN IV PATENCY; Start 03/26/17 at 08:46; Stop 03/26/17 at 20:45; Status DC Info (PHARMACY MONITORING -- do not chart) 1 each PRN DAILY PRN MC SEE COMMENTS ; Start 03/26/17 at 09:00; Status UNV Info (PHARMACY MONITORING -- do not chart) 1 each PRN DAILY PRN MC SEE COMMENTS ; Start 03/26/17 at 09:00; Status UNV Levothyroxine Sodium 15 mcg/ Sodium Chloride 5 ml @ 100 mls/hr DAILY IVP Last administered on 03/26/17 14:05; Start 03/26/17 at 14:00 Chlorhexidine Gluconate (Peridex) 15 ml BID MM Last administered on 03/26/17 21:11; Start 03/26/17 at 21:00 Heparin Sodium (Porcine) (Heparin Sq) 5,000 unit BID SQ Last administered on 21:17; Start 03/26/17 at 21:00 Heparin Sodium (Porcine) (Heparin Sodium) 10,000 unit STK-MED ONCE .ROUTE ; Start 03/27/17 at 08:15; Stop 03/27/17 at 08:16; Status DC Lidocaine/ Epinephrine (Xylocaine 1%-Epi 1:100,000) 20 ml STK-MED ONCE .ROUTE ; Start 03/27/17 at 08:15; Stop 03/27/17 at 08:16; Status DC Heparin Sodium/ Sodium Chloride 500 ml @ As Directed STK-MED ONCE .ROUTE ; Start 03/27/17 at 08:15; Stop 03/27/17 at 08:16; Status DC Heparin Sodium/ Sodium Chloride 1,000 unit 1X ONCE IART ; Start 03/27/17 at 10 :30; Stop 03/27/17 at 10:45; Status DC Lidocaine/ Epinephrine (Xylocaine 1%-Epi 1:100,000) 20 ml 1X ONCE INJ ; Start 03/27/17 at 10:30; Stop 03/27/17 at 10:45; Status DC Heparin Sodium (Porcine) (Heparin Sodium) 3,800 unit 1X ONCE INT CAT ; Start 03/27/17 at 10:30; Stop 03/27/17 at 10:45; Status DC Active Scripts Active Reported Multivitamins (Multivitamin) 1 Each Tablet 1 Tab PO DAILY Omeprazole 20 Mg Capsule.dr 1 Cap PO DAILY Vitals/I & O Vital Sign - Last 24 Hours 03/26/17 03/26/17 03/26/17 03/26/17 10:50 11:00 11:40 11:47 Temp 99.4 99.4 Pulse 82 92 91 Resp 16 16 B/P (MAP) 116/73 (87) 120/78 (92) 120/74 (89) Pulse Ox 100 100 O2 Delivery Ventilator Ventilator Mechanical Ventilator 03/26/17 03/26/17 03/26/17 03/26/17 11:47 11:55 12:00 12:50 Pulse 91 100 101 Resp 18 16 B/P (MAP) 118/73 (88) 114/76 (89) 107/69 (82) Pulse Ox 100 100 100 O2 Delivery Ventilator Ventilator Ventilator 03/26/17 03/26/17 03/26/17 03/26/17 13:00 13:51 14:00 14:00 Pulse 96 98 98 Resp 27 B/P (MAP) 103/64 (77) 105/69 (81) 103/72 (82) Pulse Ox 100 98 O2 Delivery Ventilator Ventilator 03/26/17 03/26/17 03/26/17 03/26/17 15:00 15:00 15:58 16:00 Temp 99.2 99.2 Pulse 93 96 93 Resp 24 16 B/P (MAP) 110/66 (81) 110/66 (81) 106/66 (79) Pulse Ox 99 100 100 O2 Delivery Ventilator Ventilator Ventilator 03/26/17 03/26/17 03/26/17 03/26/17 16:00 16:00 16:57 17:00 Pulse 93 95 B/P (MAP) 106/66 (79) 111/70 (84) Pulse Ox 100 O2 Delivery Mechanical Ventilator Ventilator 03/26/17 03/26/17 03/26/17 03/26/17 17:00 18:00 18:00 19:00 Pulse 95 90 90 94 Resp 16 16 16 B/P (MAP) 111/70 (84) 109/66 (80) 109/66 (80) 112/70 (84) Pulse Ox 100 100 100 O2 Delivery Ventilator Ventilator Ventilator 03/26/17 03/26/17 03/26/17 03/26/17 20:00 20:00 20:00 20:20 Temp 99.0 99.0 Pulse 84 Resp 16 B/P (MAP) 107/61 (76) Pulse Ox 100 100 O2 Delivery Ventilator Mechanical Ventilator Ventilator 03/26/17 03/26/17 03/26/17 03/26/17 21:00 22:00 22:06 23:00 Pulse 88 84 81 Resp 16 16 16 B/P (MAP) 108/60 (76) 102/57 (72) 109/61 (77) Pulse Ox 100 99 100 100 O2 Delivery Ventilator Ventilator Ventilator Ventilator 03/27/17 03/27/17 03/27/17 03/27/17 00:00 00:00 00:00 00:12 Temp 97.9 97.9 Pulse 83 Resp 16 B/P (MAP) 108/61 (77) Pulse Ox 100 100 O2 Delivery Ventilator Mechanical Ventilator Ventilator 03/27/17 03/27/17 03/27/17 03/27/17 01:00 02:00 02:45 03:00 Pulse 74 73 83 Resp 16 16 16 B/P (MAP) 111/63 (79) 111/64 (80) 122/69 (86) Pulse Ox 100 100 100 100 O2 Delivery Ventilator Ventilator Ventilator Ventilator 03/27/17 03/27/17 03/27/17 03/27/17 04:00 04:00 04:00 05:00 Temp 98.3 98.3 Pulse 84 86 Resp 16 16 B/P (MAP) 120/68 (85) 120/68 (85) Pulse Ox 100 100 O2 Delivery Mechanical Ventilator Ventilator Ventilator 03/27/17 03/27/17 03/27/17 03/27/17 05:05 06:00 07:00 07:48 Temp 98.8 98.8 Pulse 84 78 Resp 16 15 B/P (MAP) 120/67 (84) 116/62 (80) Pulse Ox 100 100 100 100 O2 Delivery Ventilator Ventilator Ventilator Ventilator 03/27/17 03/27/17 03/27/17 08:00 09:00 09:50 Pulse 82 76 Resp 15 15 B/P (MAP) 125/71 (89) 122/67 (85) Pulse Ox 100 99 100 O2 Delivery Ventilator Ventilator Ventilator Intake and Output 03/27/17 03/27/17 03/28/17 15:00 23:00 07:00 Output Total 125 ml Balance -125 ml MATTHIAS ZULETA MD Mar 27, 2017 10:48
[2017-03-27] MEDS: NORMAL SALINE IVP SCH (11:28)
[2017-03-27] MEDS: LEVOTHYROXINE SODIUM IVP SCH (11:28)
[2017-03-27] MEDS: MULTIVITAMIN with MINERAL TABLET. PO SCH (11:29)
[2017-03-27] MEDS: PANTOPRAZOLE IV PUSH 40 MG VIAL. IVP SCH ×2 (11:29→22:38)
--- NOTE | 2017-03-27 11:53 | PDOC ---
PULMONARY PROGRESS NOTES Subjective PT ON VENT SEDATED Vitals Vital Signs Date Time Temp Pulse Resp B/P (MAP) Pulse Ox O2 Delivery O2 Flow Rate FiO2 03/27/17 11:21 100 Ventilator 03/27/17 09:00 76 15 122/67 (85) 03/27/17 07:00 98.8 98.8 ROS: No Nausea, No Chest Pain, No Abdominal Pain, No Increase Cough Lungs: Clear Cardiovascular: S1, S2 Abdomen: Soft Neuro Exam: Alert Extremities: No Edema Skin: Warm Labs Laboratory Tests Test 03/25/17 13:29 03/25/17 13:30 03/25/17 13:42 03/25/17 15:00 Glucose (Fingerstick) 133 mg/dL (70-99) White Blood Count 21.6 x10^3/uL (4.0-11.0) Red Blood Count 4.16 x10^6/uL (3.50-5.40) Hemoglobin 12.3 g/dL (12.0-15.5) Hematocrit 37.2 % (36.0-47.0) Mean Corpuscular Volume 90 fL (79-100) Mean Corpuscular Hemoglobin 30 pg (25-35) Mean Corpuscular Hemoglobin Concent 33 g/dL (31-37) Red Cell Distribution Width 15.7 % (11.5-14.5) Platelet Count 539 x10^3/uL (140-400) Neutrophils (%) (Auto) 64 % (31-73) Lymphocytes (%) (Auto) 27 % (24-48) Monocytes (%) (Auto) 6 % (0-9) Eosinophils (%) (Auto) 1 % (0-3) Basophils (%) (Auto) 2 % (0-3) Neutrophils # (Auto) 13.8 x10^3uL (1.8-7.7) Lymphocytes # (Auto) 5.9 x10^3/uL (1.0-4.8) Monocytes # (Auto) 1.3 x10^3/uL (0.0-1.1) Eosinophils # (Auto) 0.3 x10^3/uL (0.0-0.7) Basophils # (Auto) 0.4 x10^3/uL (0.0-0.2) Segmented Neutrophils % 61 % (35-66) Band Neutrophils % 4 % (0-9) Lymphocytes % 26 % (24-48) Atypical Lymphocytes % (Manual) 5 % (0-0) Monocytes % 3 % (0-10) Eosinophils % 1 % (0-5) Platelet Estimate Increased (ADEQUATE) Giant Platelets Few Anisocytosis Slight Sodium Level 146 mmol/L (136-145) Potassium Level 3.9 mmol/L (3.5-5.1) Chloride Level 106 mmol/L (98-107) Carbon Dioxide Level 25 mmol/L (21-32) Anion Gap 15 (6-14) Blood Urea Nitrogen 30 mg/dL (7-20) Creatinine 6.3 mg/dL (0.6-1.0) Estimated GFR (Cockcroft-Gault) 7.9 BUN/Creatinine Ratio 5 (6-20) Glucose Level 145 mg/dL (70-99) Calcium Level 9.7 mg/dL (8.5-10.1) Total Bilirubin 0.3 mg/dL (0.2-1.0) Aspartate Amino Transf (AST/SGOT) 17 U/L (15-37) Alanine Aminotransferase (ALT/SGPT) 20 U/L (14-59) Alkaline Phosphatase 67 U/L (46-116) Creatine Kinase 26 U/L (26-192) Total Protein 7.2 g/dL (6.4-8.2) Albumin 2.3 g/dL (3.4-5.0) Albumin/Globulin Ratio 0.5 (1.0-1.7) Thyroid Stimulating Hormone (TSH) 11.117 uIU/mL (0.358-3.74) O2 Saturation 91 % (92-99) Arterial Blood pH 7.26 (7.35-7.45) Arterial Blood pCO2 at Patient Temp 36 mmHg (35-46) Arterial Blood pO2 at Patient Temp 74 mmHg (85-108) Arterial Blood HCO3 16 mmol/L (21-28) Arterial Blood Base Excess -10 mmol/L (-3-3) FiO2 100 Nasal Screen MRSA (PCR) Negative (Negative) Test 03/25/17 17:00 03/25/17 19:30 03/26/17 06:05 03/26/17 09:10 Urine Opiates Screen Neg (NEG) Urine Methadone Screen Neg (NEG) Urine Barbiturates Neg (NEG) Urine Phencyclidine Screen Neg (NEG) Urine Amphetamine/Methamphetamine Neg (NEG) Urine Benzodiazepines Screen Pos (NEG) Urine Cocaine Screen Neg (NEG) Urine Cannabinoids Screen Neg (NEG) Urine Ethyl Alcohol Neg (NEG) O2 Saturation 98 % (92-99) 99 % (92-99) Arterial Blood pH 7.46 (7.35-7.45) 7.43 (7.35-7.45) Arterial Blood pCO2 at Patient Temp 36 mmHg (35-46) 31 mmHg (35-46) Arterial Blood pO2 at Patient Temp 128 mmHg (85-108) 141 mmHg (85-108) Arterial Blood HCO3 25 mmol/L (21-28) 20 mmol/L (21-28) Arterial Blood Base Excess 1 mmol/L (-3-3) -3 mmol/L (-3-3) FiO2 90 40 White Blood Count 17.3 x10^3/uL (4.0-11.0) Red Blood Count 3.64 x10^6/uL (3.50-5.40) Hemoglobin 10.8 g/dL (12.0-15.5) Hematocrit 33.0 % (36.0-47.0) Mean Corpuscular Volume 91 fL (79-100) Mean Corpuscular Hemoglobin 30 pg (25-35) Mean Corpuscular Hemoglobin Concent 33 g/dL (31-37) Red Cell Distribution Width 15.8 % (11.5-14.5) Platelet Count 460 x10^3/uL (140-400) Neutrophils (%) (Auto) 70 % (31-73) Lymphocytes (%) (Auto) 22 % (24-48) Monocytes (%) (Auto) 6 % (0-9) Eosinophils (%) (Auto) 0 % (0-3) Basophils (%) (Auto) 1 % (0-3) Neutrophils # (Auto) 12.2 x10^3uL (1.8-7.7) Lymphocytes # (Auto) 3.7 x10^3/uL (1.0-4.8) Monocytes # (Auto) 1.1 x10^3/uL (0.0-1.1) Eosinophils # (Auto) 0.1 x10^3/uL (0.0-0.7) Basophils # (Auto) 0.2 x10^3/uL (0.0-0.2) Sodium Level 142 mmol/L (136-145) Potassium Level 3.9 mmol/L (3.5-5.1) Chloride Level 106 mmol/L (98-107) Carbon Dioxide Level 25 mmol/L (21-32) Anion Gap 11 (6-14) Blood Urea Nitrogen 27 mg/dL (7-20) Creatinine 4.6 mg/dL (0.6-1.0) Estimated GFR (Cockcroft-Gault) 11.3 Glucose Level 123 mg/dL (70-99) Lactic Acid Level 1.2 mmol/L (0.4-2.0) Calcium Level 8.0 mg/dL (8.5-10.1) Phosphorus Level 3.9 mg/dL (2.6-4.7) Albumin 1.8 g/dL (3.4-5.0) Free Thyroxine 1.24 ng/dL (0.76-1.46) Free Triiodothyronine (T3) pg/mL 1.67 pg/mL (2.18-3.98) Test 03/26/17 14:25 03/27/17 06:10 03/27/17 08:06 03/27/17 08:45 O2 Saturation 98 % (92-99) 98 % (92-99) Arterial Blood pH 7.48 (7.35-7.45) 7.46 (7.35-7.45) Arterial Blood pCO2 at Patient Temp 34 mmHg (35-46) 37 mmHg (35-46) Arterial Blood pO2 at Patient Temp 115 mmHg (85-108) 119 mmHg (85-108) Arterial Blood HCO3 24 mmol/L (21-28) 26 mmol/L (21-28) Arterial Blood Base Excess 1 mmol/L (-3-3) 2 mmol/L (-3-3) FiO2 40 40 White Blood Count 10.1 x10^3/uL (4.0-11.0) Red Blood Count 3.30 x10^6/uL (3.50-5.40) Hemoglobin 9.9 g/dL (12.0-15.5) Hematocrit 29.4 % (36.0-47.0) Mean Corpuscular Volume 89 fL (79-100) Mean Corpuscular Hemoglobin 30 pg (25-35) Mean Corpuscular Hemoglobin Concent 34 g/dL (31-37) Red Cell Distribution Width 15.6 % (11.5-14.5) Platelet Count 284 x10^3/uL (140-400) Neutrophils (%) (Auto) 69 % (31-73) Lymphocytes (%) (Auto) 19 % (24-48) Monocytes (%) (Auto) 7 % (0-9) Eosinophils (%) (Auto) 4 % (0-3) Basophils (%) (Auto) 1 % (0-3) Neutrophils # (Auto) 7.0 x10^3uL (1.8-7.7) Lymphocytes # (Auto) 1.9 x10^3/uL (1.0-4.8) Monocytes # (Auto) 0.7 x10^3/uL (0.0-1.1) Eosinophils # (Auto) 0.4 x10^3/uL (0.0-0.7) Basophils # (Auto) 0.1 x10^3/uL (0.0-0.2) Sodium Level 141 mmol/L (136-145) Potassium Level 3.7 mmol/L (3.5-5.1) Chloride Level 106 mmol/L (98-107) Carbon Dioxide Level 26 mmol/L (21-32) Anion Gap 9 (6-14) Blood Urea Nitrogen 31 mg/dL (7-20) Creatinine 4.4 mg/dL (0.6-1.0) Estimated GFR (Cockcroft-Gault) 11.9 BUN/Creatinine Ratio 7 (6-20) Glucose Level 94 mg/dL (70-99) Calcium Level 8.6 mg/dL (8.5-10.1) Phosphorus Level 3.3 mg/dL (2.6-4.7) Total Bilirubin 0.3 mg/dL (0.2-1.0) Aspartate Amino Transf (AST/SGOT) 27 U/L (15-37) Alanine Aminotransferase (ALT/SGPT) 32 U/L (14-59) Alkaline Phosphatase 54 U/L (46-116) Total Protein 5.7 g/dL (6.4-8.2) Albumin 1.7 g/dL (3.4-5.0) Albumin/Globulin Ratio 0.4 (1.0-1.7) Prothrombin Time 15.0 SEC (11.7-14.0) Prothromb Time International Ratio 1.3 (0.8-1.1) Activated Partial Thromboplast Time 27 SEC (24-38) Laboratory Tests Test 03/26/17 14:25 03/27/17 06:10 03/27/17 08:06 03/27/17 08:45 O2 Saturation 98 % (92-99) 98 % (92-99) Arterial Blood pH 7.48 (7.35-7.45) 7.46 (7.35-7.45) Arterial Blood pCO2 at Patient Temp 34 mmHg (35-46) 37 mmHg (35-46) Arterial Blood pO2 at Patient Temp 115 mmHg (85-108) 119 mmHg (85-108) Arterial Blood HCO3 24 mmol/L (21-28) 26 mmol/L (21-28) Arterial Blood Base Excess 1 mmol/L (-3-3) 2 mmol/L (-3-3) FiO2 40 40 White Blood Count 10.1 x10^3/uL (4.0-11.0) Red Blood Count 3.30 x10^6/uL (3.50-5.40) Hemoglobin 9.9 g/dL (12.0-15.5) Hematocrit 29.4 % (36.0-47.0) Mean Corpuscular Volume 89 fL (79-100) Mean Corpuscular Hemoglobin 30 pg (25-35) Mean Corpuscular Hemoglobin Concent 34 g/dL (31-37) Red Cell Distribution Width 15.6 % (11.5-14.5) Platelet Count 284 x10^3/uL (140-400) Neutrophils (%) (Auto) 69 % (31-73) Lymphocytes (%) (Auto) 19 % (24-48) Monocytes (%) (Auto) 7 % (0-9) Eosinophils (%) (Auto) 4 % (0-3) Basophils (%) (Auto) 1 % (0-3) Neutrophils # (Auto) 7.0 x10^3uL (1.8-7.7) Lymphocytes # (Auto) 1.9 x10^3/uL (1.0-4.8) Monocytes # (Auto) 0.7 x10^3/uL (0.0-1.1) Eosinophils # (Auto) 0.4 x10^3/uL (0.0-0.7) Basophils # (Auto) 0.1 x10^3/uL (0.0-0.2) Sodium Level 141 mmol/L (136-145) Potassium Level 3.7 mmol/L (3.5-5.1) Chloride Level 106 mmol/L (98-107) Carbon Dioxide Level 26 mmol/L (21-32) Anion Gap 9 (6-14) Blood Urea Nitrogen 31 mg/dL (7-20) Creatinine 4.4 mg/dL (0.6-1.0) Estimated GFR (Cockcroft-Gault) 11.9 BUN/Creatinine Ratio 7 (6-20) Glucose Level 94 mg/dL (70-99) Calcium Level 8.6 mg/dL (8.5-10.1) Phosphorus Level 3.3 mg/dL (2.6-4.7) Total Bilirubin 0.3 mg/dL (0.2-1.0) Aspartate Amino Transf (AST/SGOT) 27 U/L (15-37) Alanine Aminotransferase (ALT/SGPT) 32 U/L (14-59) Alkaline Phosphatase 54 U/L (46-116) Total Protein 5.7 g/dL (6.4-8.2) Albumin 1.7 g/dL (3.4-5.0) Albumin/Globulin Ratio 0.4 (1.0-1.7) Prothrombin Time 15.0 SEC (11.7-14.0) Prothromb Time International Ratio 1.3 (0.8-1.1) Activated Partial Thromboplast Time 27 SEC (24-38) Medications Active Scripts Medications Dose Route/Sig Max Daily Dose Days Date Category Multivitamins (Multivitamin) 1 Each Tablet 1 Tab PO DAILY 03/15/17 Reported Omeprazole 20 Mg Capsule. 1 Cap PO DAILY 03/15/17 Reported Impression . IMPRESSION: 1. Acute respiratory failure secondary to seizure 2. Seizure? etiology. 3. Appendicitis status post appendectomy on March 15. 4. Gastric sleeve surgery in February 2017. 5. Acute kidney injury. 6. Encephalopathy. 7. Obesity, probable obstructive sleep apnea-hypopnea syndrome. 8. Gastroesophageal reflux disease. CXR IMPRESSION: ET tube tip is located 3.5 cm above the level of the karin. NG tube is in place and the tube is seen extending into at least the proximal body of the stomach. Right upper extremity PICC line tip remains within the mid SVC. Decreased inspiration with right lung base atelectasis is seen. The left lung base infiltrate and/or left-sided pleural effusion seen previously has improved. No pulmonary edema or pneumothorax is seen. The heart size and pulmonary vasculature and mediastinum and both harry are unremarkable. Plan . PT SEDATED WILL D/C SEDATION AND START TRIAL POSSIBLE EXTUBATE TODAY 1. D/W FAMILY 2. Neurology FOLLOW RECOMMENDATION 3. Elevate head of bed. 4. IV fluids. 5. Continue antibiotic, possible aspiration 6. Monitor respiratory status very closely. 7. Continue Protonix. 8. MRI PENDING Neurology is consulted. 9. follow nephro input KAT ACOSTA MD Mar 27, 2017 11:53
--- NOTE | 2017-03-27 12:03 | PDOC ---
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 She is intubated and currently on the ventilator. Neuro is following- Jeff and Henri, brain MRI when stable. CT head negative, CT abd/pelvis negative-improving. Pulm is following and monitoring the vent. Will continue to monitor in the ICU. Vitals Vitals Vital Signs Date Time Temp Pulse Resp B/P (MAP) Pulse Ox O2 Delivery O2 Flow Rate FiO2 03/27/17 11:21 100 Ventilator 03/27/17 09:00 76 15 122/67 (85) 03/27/17 07:00 98.8 98.8 Physical Exam Physical Exam Pt seen in IR and was sedated General: Other (sedated and intubated on the ventilator, NG tube in place) Heart: Regular rate, Normal S1, Normal S2, No murmurs Lungs: Clear Abdomen: Normal bowel sounds, Soft Extremities: No clubbing, No cyanosis, No edema, Normal pulses, No tenderness/ swelling Skin: No rashes, No breakdown, No significant lesion Labs LABS Laboratory Tests Test 03/26/17 14:25 03/27/17 06:10 03/27/17 08:06 03/27/17 08:45 O2 Saturation 98 % (92-99) 98 % (92-99) Arterial Blood pH 7.48 (7.35-7.45) 7.46 (7.35-7.45) Arterial Blood pCO2 at Patient Temp 34 mmHg (35-46) 37 mmHg (35-46) Arterial Blood pO2 at Patient Temp 115 mmHg (85-108) 119 mmHg (85-108) Arterial Blood HCO3 24 mmol/L (21-28) 26 mmol/L (21-28) Arterial Blood Base Excess 1 mmol/L (-3-3) 2 mmol/L (-3-3) FiO2 40 40 White Blood Count 10.1 x10^3/uL (4.0-11.0) Red Blood Count 3.30 x10^6/uL (3.50-5.40) Hemoglobin 9.9 g/dL (12.0-15.5) Hematocrit 29.4 % (36.0-47.0) Mean Corpuscular Volume 89 fL (79-100) Mean Corpuscular Hemoglobin 30 pg (25-35) Mean Corpuscular Hemoglobin Concent 34 g/dL (31-37) Red Cell Distribution Width 15.6 % (11.5-14.5) Platelet Count 284 x10^3/uL (140-400) Neutrophils (%) (Auto) 69 % (31-73) Lymphocytes (%) (Auto) 19 % (24-48) Monocytes (%) (Auto) 7 % (0-9) Eosinophils (%) (Auto) 4 % (0-3) Basophils (%) (Auto) 1 % (0-3) Neutrophils # (Auto) 7.0 x10^3uL (1.8-7.7) Lymphocytes # (Auto) 1.9 x10^3/uL (1.0-4.8) Monocytes # (Auto) 0.7 x10^3/uL (0.0-1.1) Eosinophils # (Auto) 0.4 x10^3/uL (0.0-0.7) Basophils # (Auto) 0.1 x10^3/uL (0.0-0.2) Sodium Level 141 mmol/L (136-145) Potassium Level 3.7 mmol/L (3.5-5.1) Chloride Level 106 mmol/L (98-107) Carbon Dioxide Level 26 mmol/L (21-32) Anion Gap 9 (6-14) Blood Urea Nitrogen 31 mg/dL (7-20) Creatinine 4.4 mg/dL (0.6-1.0) Estimated GFR (Cockcroft-Gault) 11.9 BUN/Creatinine Ratio 7 (6-20) Glucose Level 94 mg/dL (70-99) Calcium Level 8.6 mg/dL (8.5-10.1) Phosphorus Level 3.3 mg/dL (2.6-4.7) Total Bilirubin 0.3 mg/dL (0.2-1.0) Aspartate Amino Transf (AST/SGOT) 27 U/L (15-37) Alanine Aminotransferase (ALT/SGPT) 32 U/L (14-59) Alkaline Phosphatase 54 U/L (46-116) Total Protein 5.7 g/dL (6.4-8.2) Albumin 1.7 g/dL (3.4-5.0) Albumin/Globulin Ratio 0.4 (1.0-1.7) Prothrombin Time 15.0 SEC (11.7-14.0) Prothromb Time International Ratio 1.3 (0.8-1.1) Activated Partial Thromboplast Time 27 SEC (24-38) Review of Systems Review of Systems Pt is on ventilator and dialysis Assessment and Plan Assessmemt and Plan Assesment: Acute renal failure, ATN acute appendicitis with perforation s/p lap appendectomy, path acute and chronic appendicitis morbid obesity BMI 44 Persistent nausea h/o gastric sleeve hypokalemia EMILY, possible ATN with vanco weakness and debility, nausea, abd pain Plan: Hemodialysis cardiac monitoring echocardiogram pending IV antibx ICU monitoring Order labs Prognosis guarded Appreciate subspecialist input Problems: Comment Review of Relevant I have reviewed the following items na (where applicable) has been applied. Labs Laboratory Tests Test 03/25/17 13:29 03/25/17 13:30 03/25/17 13:42 03/25/17 15:00 Glucose (Fingerstick) 133 mg/dL (70-99) White Blood Count 21.6 x10^3/uL (4.0-11.0) Red Blood Count 4.16 x10^6/uL (3.50-5.40) Hemoglobin 12.3 g/dL (12.0-15.5) Hematocrit 37.2 % (36.0-47.0) Mean Corpuscular Volume 90 fL (79-100) Mean Corpuscular Hemoglobin 30 pg (25-35) Mean Corpuscular Hemoglobin Concent 33 g/dL (31-37) Red Cell Distribution Width 15.7 % (11.5-14.5) Platelet Count 539 x10^3/uL (140-400) Neutrophils (%) (Auto) 64 % (31-73) Lymphocytes (%) (Auto) 27 % (24-48) Monocytes (%) (Auto) 6 % (0-9) Eosinophils (%) (Auto) 1 % (0-3) Basophils (%) (Auto) 2 % (0-3) Neutrophils # (Auto) 13.8 x10^3uL (1.8-7.7) Lymphocytes # (Auto) 5.9 x10^3/uL (1.0-4.8) Monocytes # (Auto) 1.3 x10^3/uL (0.0-1.1) Eosinophils # (Auto) 0.3 x10^3/uL (0.0-0.7) Basophils # (Auto) 0.4 x10^3/uL (0.0-0.2) Segmented Neutrophils % 61 % (35-66) Band Neutrophils % 4 % (0-9) Lymphocytes % 26 % (24-48) Atypical Lymphocytes % (Manual) 5 % (0-0) Monocytes % 3 % (0-10) Eosinophils % 1 % (0-5) Platelet Estimate Increased (ADEQUATE) Giant Platelets Few Anisocytosis Slight Sodium Level 146 mmol/L (136-145) Potassium Level 3.9 mmol/L (3.5-5.1) Chloride Level 106 mmol/L (98-107) Carbon Dioxide Level 25 mmol/L (21-32) Anion Gap 15 (6-14) Blood Urea Nitrogen 30 mg/dL (7-20) Creatinine 6.3 mg/dL (0.6-1.0) Estimated GFR (Cockcroft-Gault) 7.9 BUN/Creatinine Ratio 5 (6-20) Glucose Level 145 mg/dL (70-99) Calcium Level 9.7 mg/dL (8.5-10.1) Total Bilirubin 0.3 mg/dL (0.2-1.0) Aspartate Amino Transf (AST/SGOT) 17 U/L (15-37) Alanine Aminotransferase (ALT/SGPT) 20 U/L (14-59) Alkaline Phosphatase 67 U/L (46-116) Creatine Kinase 26 U/L (26-192) Total Protein 7.2 g/dL (6.4-8.2) Albumin 2.3 g/dL (3.4-5.0) Albumin/Globulin Ratio 0.5 (1.0-1.7) Thyroid Stimulating Hormone (TSH) 11.117 uIU/mL (0.358-3.74) O2 Saturation 91 % (92-99) Arterial Blood pH 7.26 (7.35-7.45) Arterial Blood pCO2 at Patient Temp 36 mmHg (35-46) Arterial Blood pO2 at Patient Temp 74 mmHg (85-108) Arterial Blood HCO3 16 mmol/L (21-28) Arterial Blood Base Excess -10 mmol/L (-3-3) FiO2 100 Nasal Screen MRSA (PCR) Negative (Negative) Test 03/25/17 17:00 03/25/17 19:30 03/26/17 06:05 03/26/17 09:10 Urine Opiates Screen Neg (NEG) Urine Methadone Screen Neg (NEG) Urine Barbiturates Neg (NEG) Urine Phencyclidine Screen Neg (NEG) Urine Amphetamine/Methamphetamine Neg (NEG) Urine Benzodiazepines Screen Pos (NEG) Urine Cocaine Screen Neg (NEG) Urine Cannabinoids Screen Neg (NEG) Urine Ethyl Alcohol Neg (NEG) O2 Saturation 98 % (92-99) 99 % (92-99) Arterial Blood pH 7.46 (7.35-7.45) 7.43 (7.35-7.45) Arterial Blood pCO2 at Patient Temp 36 mmHg (35-46) 31 mmHg (35-46) Arterial Blood pO2 at Patient Temp 128 mmHg (85-108) 141 mmHg (85-108) Arterial Blood HCO3 25 mmol/L (21-28) 20 mmol/L (21-28) Arterial Blood Base Excess 1 mmol/L (-3-3) -3 mmol/L (-3-3) FiO2 90 40 White Blood Count 17.3 x10^3/uL (4.0-11.0) Red Blood Count 3.64 x10^6/uL (3.50-5.40) Hemoglobin 10.8 g/dL (12.0-15.5) Hematocrit 33.0 % (36.0-47.0) Mean Corpuscular Volume 91 fL (79-100) Mean Corpuscular Hemoglobin 30 pg (25-35) Mean Corpuscular Hemoglobin Concent 33 g/dL (31-37) Red Cell Distribution Width 15.8 % (11.5-14.5) Platelet Count 460 x10^3/uL (140-400) Neutrophils (%) (Auto) 70 % (31-73) Lymphocytes (%) (Auto) 22 % (24-48) Monocytes (%) (Auto) 6 % (0-9) Eosinophils (%) (Auto) 0 % (0-3) Basophils (%) (Auto) 1 % (0-3) Neutrophils # (Auto) 12.2 x10^3uL (1.8-7.7) Lymphocytes # (Auto) 3.7 x10^3/uL (1.0-4.8) Monocytes # (Auto) 1.1 x10^3/uL (0.0-1.1) Eosinophils # (Auto) 0.1 x10^3/uL (0.0-0.7) Basophils # (Auto) 0.2 x10^3/uL (0.0-0.2) Sodium Level 142 mmol/L (136-145) Potassium Level 3.9 mmol/L (3.5-5.1) Chloride Level 106 mmol/L (98-107) Carbon Dioxide Level 25 mmol/L (21-32) Anion Gap 11 (6-14) Blood Urea Nitrogen 27 mg/dL (7-20) Creatinine 4.6 mg/dL (0.6-1.0) Estimated GFR (Cockcroft-Gault) 11.3 Glucose Level 123 mg/dL (70-99) Lactic Acid Level 1.2 mmol/L (0.4-2.0) Calcium Level 8.0 mg/dL (8.5-10.1) Phosphorus Level 3.9 mg/dL (2.6-4.7) Albumin 1.8 g/dL (3.4-5.0) Free Thyroxine 1.24 ng/dL (0.76-1.46) Free Triiodothyronine (T3) pg/mL 1.67 pg/mL (2.18-3.98) Test 03/26/17 14:25 03/27/17 06:10 03/27/17 08:06 03/27/17 08:45 O2 Saturation 98 % (92-99) 98 % (92-99) Arterial Blood pH 7.48 (7.35-7.45) 7.46 (7.35-7.45) Arterial Blood pCO2 at Patient Temp 34 mmHg (35-46) 37 mmHg (35-46) Arterial Blood pO2 at Patient Temp 115 mmHg (85-108) 119 mmHg (85-108) Arterial Blood HCO3 24 mmol/L (21-28) 26 mmol/L (21-28) Arterial Blood Base Excess 1 mmol/L (-3-3) 2 mmol/L (-3-3) FiO2 40 40 White Blood Count 10.1 x10^3/uL (4.0-11.0) Red Blood Count 3.30 x10^6/uL (3.50-5.40) Hemoglobin 9.9 g/dL (12.0-15.5) Hematocrit 29.4 % (36.0-47.0) Mean Corpuscular Volume 89 fL (79-100) Mean Corpuscular Hemoglobin 30 pg (25-35) Mean Corpuscular Hemoglobin Concent 34 g/dL (31-37) Red Cell Distribution Width 15.6 % (11.5-14.5) Platelet Count 284 x10^3/uL (140-400) Neutrophils (%) (Auto) 69 % (31-73) Lymphocytes (%) (Auto) 19 % (24-48) Monocytes (%) (Auto) 7 % (0-9) Eosinophils (%) (Auto) 4 % (0-3) Basophils (%) (Auto) 1 % (0-3) Neutrophils # (Auto) 7.0 x10^3uL (1.8-7.7) Lymphocytes # (Auto) 1.9 x10^3/uL (1.0-4.8) Monocytes # (Auto) 0.7 x10^3/uL (0.0-1.1) Eosinophils # (Auto) 0.4 x10^3/uL (0.0-0.7) Basophils # (Auto) 0.1 x10^3/uL (0.0-0.2) Sodium Level 141 mmol/L (136-145) Potassium Level 3.7 mmol/L (3.5-5.1) Chloride Level 106 mmol/L (98-107) Carbon Dioxide Level 26 mmol/L (21-32) Anion Gap 9 (6-14) Blood Urea Nitrogen 31 mg/dL (7-20) Creatinine 4.4 mg/dL (0.6-1.0) Estimated GFR (Cockcroft-Gault) 11.9 BUN/Creatinine Ratio 7 (6-20) Glucose Level 94 mg/dL (70-99) Calcium Level 8.6 mg/dL (8.5-10.1) Phosphorus Level 3.3 mg/dL (2.6-4.7) Total Bilirubin 0.3 mg/dL (0.2-1.0) Aspartate Amino Transf (AST/SGOT) 27 U/L (15-37) Alanine Aminotransferase (ALT/SGPT) 32 U/L (14-59) Alkaline Phosphatase 54 U/L (46-116) Total Protein 5.7 g/dL (6.4-8.2) Albumin 1.7 g/dL (3.4-5.0) Albumin/Globulin Ratio 0.4 (1.0-1.7) Prothrombin Time 15.0 SEC (11.7-14.0) Prothromb Time International Ratio 1.3 (0.8-1.1) Activated Partial Thromboplast Time 27 SEC (24-38) Laboratory Tests Test 03/26/17 14:25 03/27/17 06:10 03/27/17 08:06 03/27/17 08:45 O2 Saturation 98 % (92-99) 98 % (92-99) Arterial Blood pH 7.48 (7.35-7.45) 7.46 (7.35-7.45) Arterial Blood pCO2 at Patient Temp 34 mmHg (35-46) 37 mmHg (35-46) Arterial Blood pO2 at Patient Temp 115 mmHg (85-108) 119 mmHg (85-108) Arterial Blood HCO3 24 mmol/L (21-28) 26 mmol/L (21-28) Arterial Blood Base Excess 1 mmol/L (-3-3) 2 mmol/L (-3-3) FiO2 40 40 White Blood Count 10.1 x10^3/uL (4.0-11.0) Red Blood Count 3.30 x10^6/uL (3.50-5.40) Hemoglobin 9.9 g/dL (12.0-15.5) Hematocrit 29.4 % (36.0-47.0) Mean Corpuscular Volume 89 fL (79-100) Mean Corpuscular Hemoglobin 30 pg (25-35) Mean Corpuscular Hemoglobin Concent 34 g/dL (31-37) Red Cell Distribution Width 15.6 % (11.5-14.5) Platelet Count 284 x10^3/uL (140-400) Neutrophils (%) (Auto) 69 % (31-73) Lymphocytes (%) (Auto) 19 % (24-48) Monocytes (%) (Auto) 7 % (0-9) Eosinophils (%) (Auto) 4 % (0-3) Basophils (%) (Auto) 1 % (0-3) Neutrophils # (Auto) 7.0 x10^3uL (1.8-7.7) Lymphocytes # (Auto) 1.9 x10^3/uL (1.0-4.8) Monocytes # (Auto) 0.7 x10^3/uL (0.0-1.1) Eosinophils # (Auto) 0.4 x10^3/uL (0.0-0.7) Basophils # (Auto) 0.1 x10^3/uL (0.0-0.2) Sodium Level 141 mmol/L (136-145) Potassium Level 3.7 mmol/L (3.5-5.1) Chloride Level 106 mmol/L (98-107) Carbon Dioxide Level 26 mmol/L (21-32) Anion Gap 9 (6-14) Blood Urea Nitrogen 31 mg/dL (7-20) Creatinine 4.4 mg/dL (0.6-1.0) Estimated GFR (Cockcroft-Gault) 11.9 BUN/Creatinine Ratio 7 (6-20) Glucose Level 94 mg/dL (70-99) Calcium Level 8.6 mg/dL (8.5-10.1) Phosphorus Level 3.3 mg/dL (2.6-4.7) Total Bilirubin 0.3 mg/dL (0.2-1.0) Aspartate Amino Transf (AST/SGOT) 27 U/L (15-37) Alanine Aminotransferase (ALT/SGPT) 32 U/L (14-59) Alkaline Phosphatase 54 U/L (46-116) Total Protein 5.7 g/dL (6.4-8.2) Albumin 1.7 g/dL (3.4-5.0) Albumin/Globulin Ratio 0.4 (1.0-1.7) Prothrombin Time 15.0 SEC (11.7-14.0) Prothromb Time International Ratio 1.3 (0.8-1.1) Activated Partial Thromboplast Time 27 SEC (24-38) Microbiology 03/25/17 Blood Culture - Preliminary, Resulted NO GROWTH AFTER 1 DAY Medications Current Medications Dexamethasone Sodium Phosphate (Decadron) 20 mg STK-MED ONCE .ROUTE ; Start 03/15/17 at 14:06; Stop 03/15/17 at 14:07; Status DC Ondansetron HCl (Zofran) 4 mg STK-MED ONCE .ROUTE ; Start 03/15/17 at 14:06; Stop 03/15/17 at 14:07; Status DC Propofol 20 ml @ As Directed STK-MED ONCE IV ; Start 03/15/17 at 14:06; Stop at 14:07; Status DC Lidocaine HCl (Lidocaine Pf 2% Vial) 5 ml STK-MED ONCE .ROUTE ; Start 03/15/17 at 14:06; Stop 03/15/17 at 14:07; Status DC Midazolam HCl (Versed) 2 mg STK-MED ONCE .ROUTE ; Start 03/15/17 at 14:06; Stop 03/15/17 at 14:07; Status DC Fentanyl Citrate (Fentanyl 2ml Vial) 100 mcg STK-MED ONCE .ROUTE ; Start at 14:06; Stop 03/15/17 at 14:07; Status DC Rocuronium [place] (Zemuron) 100 mg STK-MED ONCE .ROUTE ; Start 03/15/17 at 14: 07; Stop 03/15/17 at 14:08; Status DC Succinylcholine Chloride (Anectine) 200 mg STK-MED ONCE .ROUTE ; Start 03/15/17 at 14:07; Stop 03/15/17 at 14:08; Status DC Bupivacaine HCl/ Epinephrine Bitart (Marcaine-Epi 0.5%-[id number]) 50 ml STK-MED ONCE .ROUTE Last administered on 03/15/17 14:54; Start 03/15/17 at 13:07; Stop 03/15/17 at 14:08; Status DC Cefoxitin Sodium 2 gm/Sodium Chloride 100 ml @ 200 mls/hr 1X PREOP IV Last administered on 03/15/17 14:55; Start 03/15/17 at 16:00; Stop 03/16/17 at 14:41 ; Status DC Sodium Chloride 1,000 ml @ 125 mls/hr 1X ONCE IV Last administered on 14:15; Start 03/15/17 at 14:15; Stop 03/15/17 at 22:14; Status DC Cefoxitin Sodium 100 ml @ As Directed STK-MED ONCE IV ; Start 03/15/17 at 14:53 ; Stop 03/15/17 at 14:54; Status DC Enoxaparin Sodium (Lovenox 40mg Syringe) 40 mg Q24H SQ ; Start 03/15/17 at 15:30 ; Stop 03/16/17 at 14:38; Status DC Sodium Chloride (Normal Saline Flush) 3 ml QSHIFT PRN IV AFTER MEDS AND BLOOD DRAWS; Start 03/15/17 at 15:30 Ringer's Solution 1,000 ml @ 75 mls/hr [id number] IV Last administered on 21:12; Start 03/15/17 at 15:19 Acetaminophen/ Hydrocodone Bitart (Lortab 5/325) 1 tab PRN Q4HRS PRN PO MILD PAIN Last administered on 03/16/17 02:56; Start 03/15/17 at 15:30; Stop at 13:05; Status DC Ketorolac Tromethamine (Toradol) 15 mg PRN Q6HRS PRN IV PAIN; Start 03/15/17 at 15:30; Stop 03/16/17 at 09:05; Status DC Morphine Sulfate 2 mg PRN Q1HR PRN IV PAIN Last administered on 03/22/17 09: 36; Start 03/15/17 at 15:30 Docusate Sodium (Colace) 100 mg BID PO Last administered on 03/17/17 13:04; Start 03/15/17 at 21:00 Ondansetron HCl (Zofran) 4 mg PRN Q6HRS PRN IV NAUESA, 1ST CHOICE Last administered on 03/22/17 06:34; Start 03/15/17 at 15:30; Stop 03/22/17 at 09: 09; Status DC Piperacillin Sod/ Tazobactam Sod 3.375 gm/Sodium Chloride 50 ml @ 100 mls/hr Q6HRS IV Last administered on 03/21/17 06:20; Start 03/15/17 at 18:00; Stop 03/21/17 at 09:24; Status DC Morphine Sulfate 10 mg STK-MED ONCE .ROUTE ; Start 03/15/17 at 15:32; Stop 03/15 at 15:33; Status DC Ringer's Solution 1,000 ml @ 125 mls/hr Q8H IV Last administered on 03/16/17 00:51; Start 03/15/17 at 15:42; Stop 03/16/17 at 03:41; Status DC Lidocaine HCl (Xylocaine-Mpf 1% Vial) 0.5 ml 1X PRN PRN INJ IV START; Start at 15:45; Stop 03/16/17 at 15:44; Status DC Ringer's Solution 1,000 ml @ 125 mls/hr Q8H IV ; Start 03/15/17 at 15:42; Stop 03/15/17 at 21:41; Status DC Fentanyl Citrate (Fentanyl 2ml Vial) 25 mcg PRN Q5MIN PRN IV Acute Pain; Start 03/15/17 at 15:45; Stop 03/16/17 at 09:05; Status DC Fentanyl Citrate (Fentanyl 2ml Vial) 50 mcg PRN Q5MIN PRN IV Acute Pain Last administered on 03/15/17 15:58; Start 03/15/17 at 15:45; Stop 03/16/17 at 09:05 ; Status DC Morphine Sulfate 2 mg PRN Q10MIN PRN IV Mild Pain; Start 03/15/17 at 15:45; Stop 03/16/17 at 09:05; Status DC Morphine Sulfate 4 mg PRN Q10MIN PRN IV Moderate Pain; Start 03/15/17 at 15:45 ; Stop 03/16/17 at 09:05; Status DC Ondansetron HCl (Zofran) 4 mg PRN Q6HRS PRN IV Nausea, 1st Choice; Start at 15:45; Stop 03/16/17 at 09:05; Status DC Metoclopramide HCl (Reglan) 10 mg PRN Q6HRS PRN IV Nausea/Vomiting, 2nd Choice Last administered on 03/15/17 18:49; Start 03/15/17 at 15:45; Stop 03/16/17 at 15:44; Status DC Diphenhydramine HCl (Benadryl) 12.5 mg PRN Q2HR PRN IV ITCHING; Start 03/15/17 at 15:45; Stop 03/16/17 at 15:44; Status DC Albuterol Sulfate (Ventolin Neb Soln) 2.5 mg PRN 1X PRN NEB Shortness of Breath , Wheezing; Start 03/15/17 at 15:45; Stop 03/16/17 at 15:44; Status DC Dexamethasone Sodium Phosphate (Decadron) 8 mg 1X PRN PRN IV 3RD CHOICE FOR NAUSEA; Start 03/15/17 at 15:45; Stop 03/16/17 at 15:44; Status DC Meperidine HCl (Demerol) 10 mg 1X PERIOP PRN IV SHIVERING; Start 03/15/17 at 15 :45; Stop 03/16/17 at 15:44; Status DC Meperidine HCl (Demerol) 15 mg 1X PERIOP PRN IV SHIVERING; Start 03/15/17 at 15 :45; Stop 03/16/17 at 15:44; Status DC Prochlorperazine Edisylate (Compazine) 10 mg STK-MED ONCE .ROUTE ; Start at 15:48; Stop 03/15/17 at 15:49; Status DC Prochlorperazine Maleate (Compazine) 5 mg 1X PACU PRN PO NAUSEA/VOMITING; Start 03/15/17 at 16:00; Stop 03/19/17 at 19:03; Status DC Hydromorphone HCl (Dilaudid) 0.5 mg PRN Q10MIN PRN IV PAIN Last administered on 03/15/17 16:52; Start 03/15/17 at 16:15; Stop 03/16/17 at 09:05; Status DC Acetaminophen/ Hydrocodone Bitart (Lortab 5/325) 2 tab PRN Q4HRS PRN PO PAIN Last administered on 03/16/17 10:16; Start 03/16/17 at 09:15; Stop 03/16/17 at 13:05; Status DC Multivitamins (Thera M Plus) 1 tab DAILY PO Last administered on 03/27/17 11: 29; Start 03/16/17 at 13:00 Pantoprazole Sodium (Protonix) 40 mg DAILYAC PO Last administered on 03/20/17 08:48; Start 03/16/17 at 13:00; Stop 03/20/17 at 11:14; Status DC Oxycodone/ Acetaminophen (Percocet 7.5/ 325) 1 tab PRN Q4HRS PRN PO PAIN Last administered on 03/23/17 14:59; Start 03/16/17 at 13:15 Morphine Sulfate 4 mg PRN Q2HR PRN IV PAIN Last administered on 03/18/17 14:11 ; Start 03/16/17 at 13:15 Enoxaparin Sodium (Lovenox 40mg Syringe) 40 mg Q12HR SQ Last administered on 08:47; Start 03/16/17 at 21:00; Stop 03/20/17 at 16:57; Status DC Iohexol (Omnipaque 300 Mg/ml) 75 ml 1X ONCE IV Last administered on 03/17/17 08:00; Start 03/17/17 at 08:00; Stop 03/17/17 at 08:01; Status DC Iohexol (Omnipaque 240 Mg/ml) 50 ml 1X ONCE PO Last administered on 03/17/17 08:00; Start 03/17/17 at 08:00; Stop 03/17/17 at 08:01; Status DC Info (Do NOT chart on this entry -- for MONITORING) 1 each PRN DAILY PRN MC SEE COMMENTS; Start 03/17/17 at 07:45; Stop 03/19/17 at 07:44; Status DC Sodium Chloride 1,000 ml @ 1,000 mls/hr 1X ONCE IV Last administered on 08:00; Start 03/17/17 at 08:00; Stop 03/17/17 at 08:59; Status DC Vancomycin HCl (Vanco Per Pharmacy) 1 each PRN DAILY PRN MC SEE COMMENTS Last administered on 03/18/17 14:24; Start 03/17/17 at 08:00; Stop 03/19/17 at 11:10 ; Status DC Fluconazole/ Sodium Chloride 200 ml @ 100 mls/hr Q24H IV Last administered on 03/21/17 08:07; Start 03/17/17 at 09:00; Stop 03/21/17 at 09:24; Status DC Vancomycin HCl 2 gm/Sodium Chloride 500 ml @ 250 mls/hr 1X ONCE IV Last administered on 03/17/17 13:08; Start 03/17/17 at 09:00; Stop 03/17/17 at 10:59 ; Status DC Acetaminophen (Tylenol) 650 mg PRN Q6HRS PRN PO FEVER Last administered on 16:34; Start 03/17/17 at 08:15 Vancomycin HCl 2 gm/Sodium Chloride 500 ml @ 250 mls/hr Q8H IV Last administered on 03/19/17 05:41; Start 03/17/17 at 22:00; Stop 03/19/17 at 11:10 ; Status DC Vancomycin HCl 1 each 1X ONCE MC ; Start 03/18/17 at 13:30; Stop 03/18/17 at 13 :31; Status DC Calcium Carbonate/ Glycine (Tums) 1,000 mg PRN Q4HRS PRN PO INDIGESTION Last administered on 03/17/17 23:57; Start 03/17/17 at 23:45 Potassium Chloride (Klor-Con) 40 meq 1X ONCE PO Last administered on 14:14; Start 03/18/17 at 12:45; Stop 03/18/17 at 12:46; Status DC Vancomycin HCl 1 each 1X ONCE MC ; Start 03/19/17 at 13:30; Stop 03/19/17 at 13 :30; Status DC Sodium Chloride 1,000 ml @ 1,000 mls/hr 1X ONCE IV Last administered on 14:28; Start 03/19/17 at 12:15; Stop 03/19/17 at 13:14; Status DC Pantoprazole Sodium (Protonix) 40 mg BIDAC PO Last administered on 03/25/17 08:31; Start 03/20/17 at 16:30; Stop 03/25/17 at 16:05; Status DC Simethicone (Gas-X) 80 mg PRN AFTMEALHC PRN PO GAS / BLOATING Last administered on 03/22/17 08:55; Start 03/20/17 at 11:15 Al Hydroxide/Mg Hydroxide (Mylanta Plus Xs) 30 ml PRN Q2HR PRN PO HEARTBURN / GAS; Start 03/20/17 at 11:15 Enoxaparin Sodium (Lovenox 40mg Syringe) 40 mg DAILY SQ Last administered on 08:09; Start 03/21/17 at 09:00; Stop 03/22/17 at 12:42; Status DC Fluconazole/ Sodium Chloride 100 ml @ 100 mls/hr Q24H IV ; Start 03/22/17 at 09:00; Stop 03/22/17 at 09:00; Status DC Piperacillin Sod/ Tazobactam Sod 3.375 gm/Sodium Chloride 50 ml @ 100 mls/hr Q12HR IV ; Start 03/21/17 at 21:00; Stop 03/21/17 at 21:00; Status DC Fluconazole/ Sodium Chloride 100 ml @ 100 mls/hr Q24H IV Last administered on 03/22/17 09:30; Start 03/22/17 at 09:00; Stop 03/23/17 at 10:05; Status DC Piperacillin Sod/ Tazobactam Sod 2.25 gm/Sodium Chloride 50 ml @ 100 mls/hr Q6HRS IV Last administered on 03/23/17 05:58; Start 03/21/17 at 12:00; Stop 03/23/17 at 10:05; Status DC Ondansetron HCl (Zofran) 8 mg PRN Q8HRS PRN IV NAUESA, 1ST CHOICE Last administered on 03/25/17 06:17; Start 03/22/17 at 09:15 Prochlorperazine Edisylate (Compazine) 10 mg PRN Q8HRS PRN IV NAUSEA/VOMITING - 2nd choice Last administered on 03/25/17 10:23; Start 03/22/17 at 09:15 Amino Acids/ Glycerin/ Electrolytes 1,000 ml @ 80 mls/hr [id number] IV Last administered on 03/27/17 06:09; Start 03/22/17 at 11:45 Heparin Sodium (Porcine) (Heparin Sq) 5,000 unit Q8HRS SQ Last administered on 03/25/17 06:07; Start 03/22/17 at 14:00; Stop 03/25/17 at 08:45; Status DC Loperamide HCl (Imodium) 2 mg PRN Q15MIN PRN PO DIARRHEA; Start 03/23/17 at 08 :00 Amoxicillin/ Clavulanate Potassium (Augmentin 500/ 125mg) 1 tab BID PO Last administered on 03/25/17 08:31; Start 03/23/17 at 10:30; Stop 03/25/17 at 14 :03; Status DC Promethazine HCl (Phenergan) 25 mg PRN Q6HRS PRN MO NAUSEA/VOMITING; Start 05/28 at 15:15 Furosemide (Lasix) 80 mg 1X ONCE IVP Last administered on 03/24/17 12:13; Start 03/24/17 at 11:30; Stop 03/24/17 at 11:31; Status DC Iohexol (Omnipaque 240 Mg/ml) 50 ml 1X ONCE PO Last administered on 09:30; Start 03/25/17 at 09:30; Stop 03/25/17 at 09:31; Status DC Iohexol (Omnipaque 240 Mg/ml) 50 ml 1X ONCE PO Last administered on 12:32; Start 03/25/17 at 12:30; Stop 03/25/17 at 12:31; Status DC Lorazepam (Ativan) 1 mg 1X ONCE IV Last administered on 03/25/17 13:40; Start 03/25/17 at 14:00; Stop 03/25/17 at 14:01; Status DC Piperacillin Sod/ Tazobactam Sod 2.25 gm/Sodium Chloride 50 ml @ 100 mls/hr Q8HRS IV Last administered on 03/27/17 06:09; Start 03/25/17 at 15:00 Levetiracetam 500 mg/Sodium Chloride 100 ml @ 400 mls/hr Q12HR IV ; Start at 15:00; Stop 03/25/17 at 15:00; Status DC Lorazepam (Ativan) 2 mg PRN Q1HR PRN IV SEIZURE Last administered on 14:30; Start 03/25/17 at 14:15; Stop 03/25/17 at 15:27; Status DC Levetiracetam 750 mg/Sodium Chloride 107.5 ml @ 400 mls/hr Q12HR IV Last administered on 03/27/17 11:29; Start 03/25/17 at 15:00 Digoxin (Lanoxin) 500 mcg 1X ONCE IV Last administered on 03/25/17 14:34; Start 03/25/17 at 14:30; Stop 03/25/17 at 14:31; Status DC Norepinephrine Bitartrate 250 ml @ 0 mls/hr CONT PRN IV SEE I/O RECORD Last administered on 03/25/17 21:53; Start 03/25/17 at 14:30 Sodium Chloride 1,000 ml @ 1,000 mls/hr 1X ONCE IV Last administered on 03/25 15:38; Start 03/25/17 at 15:00; Stop 03/25/17 at 15:59; Status DC Lorazepam (Ativan) 2 mg PRN Q4HRS PRN IV SEIZURE Last administered on 15:55; Start 03/25/17 at 15:30 Propofol 100 ml @ As Directed STK-MED ONCE IV ; Start 03/25/17 at 15:28; Stop 03/25/17 at 15:29; Status DC Propofol 100 ml @ 0 mls/hr CONT PRN IV SEE I/O RECORD Last administered on 11:00; Start 03/25/17 at 15:45 Sodium Bicarbonate 150 meq 1X ONCE IV Last administered on 03/25/17 15:43; Start 03/25/17 at 16:00; Stop 03/25/17 at 16:01; Status DC Adenosine (Adenocard) 6 mg 1X ONCE IV Last administered on 03/25/17 15:42; Start 03/25/17 at 16:15; Stop 03/25/17 at 16:16; Status DC Adenosine (Adenocard) 12 mg 1X ONCE IV Last administered on 03/25/17 15:48; Start 03/25/17 at 16:00; Stop 03/25/17 at 16:01; Status DC Midazolam HCl (Versed) 5 mg 1X ONCE IV Last administered on 03/25/17 15:48; Start 03/25/17 at 16:00; Stop 03/25/17 at 16:01; Status DC Pantoprazole Sodium (Protonix Vial) 40 mg BID IVP Last administered on 11:29; Start 03/25/17 at 21:00 Sodium Chloride 1,000 ml @ 1,000 mls/hr Q1H PRN IV hypotension; Start at 16:30; Stop 03/25/17 at 22:29; Status DC Sodium Chloride (Normal Saline Flush) 10 ml 1X PRN PRN IV AP catheter pack; Start 03/25/17 at 16:30; Stop 03/26/17 at 08:54; Status DC Sodium Chloride (Normal Saline Flush) 10 ml 1X PRN PRN IV YARD MANAGER catheter pack; Start 03/25/17 at 16:30; Stop 03/26/17 at 08:54; Status DC Sodium Chloride 1,000 ml @ 400 mls/hr Q2H30M PRN IV PATENCY; Start 03/25/17 at 16:30; Stop 03/26/17 at 04:29; Status DC Info (PHARMACY MONITORING -- do not chart) 1 each PRN DAILY PRN MC SEE COMMENTS ; Start 03/25/17 at 16:30 Info (PHARMACY MONITORING -- do not chart) 1 each PRN DAILY PRN MC SEE COMMENTS ; Start 03/25/17 at 16:30; Status UNV Acetaminophen (Tylenol) 650 mg PRN Q6HRS PRN PEG MILD PAIN / TEMP Last administered on 03/25/17t 18:44; Start 03/25/17 at 18:30 Fentanyl Citrate 30 ml @ 0 mls/hr CONT PRN PRN IV PROTOCOL; Start 03/25/17 at 19:15 Sodium Chloride 1,000 ml @ 1,000 mls/hr Q1H PRN IV hypotension; Start at 08:46; Stop 03/26/17 at 14:45; Status DC Sodium Chloride (Normal Saline Flush) 10 ml 1X PRN PRN IV AP catheter pack; Start 03/26/17 at 09:00; Stop 03/27/17 at 08:59; Status DC Sodium Chloride (Normal Saline Flush) 10 ml 1X PRN PRN IV YARD MANAGER catheter pack; Start 03/26/17 at 09:00; Stop 03/27/17 at 08:59; Status DC Sodium Chloride 1,000 ml @ 400 mls/hr Q2H30M PRN IV PATENCY; Start 03/26/17 at 08:46; Stop 03/26/17 at 20:45; Status DC Info (PHARMACY MONITORING -- do not chart) 1 each PRN DAILY PRN MC SEE COMMENTS ; Start 03/26/17 at 09:00; Status UNV Info (PHARMACY MONITORING -- do not chart) 1 each PRN DAILY PRN MC SEE COMMENTS ; Start 03/26/17 at 09:00; Status UNV Levothyroxine Sodium 15 mcg/ Sodium Chloride 5 ml @ 100 mls/hr DAILY IVP Last administered on 03/27/17 11:28; Start 03/26/17 at 14:00 Chlorhexidine Gluconate (Peridex) 15 ml BID MM Last administered on 03/27/17 07:45; Start 03/26/17 at 21:00 Heparin Sodium (Porcine) (Heparin Sq) 5,000 unit BID SQ Last administered on 21:17; Start 03/26/17 at 21:00 Heparin Sodium (Porcine) (Heparin Sodium) 10,000 unit STK-MED ONCE .ROUTE ; Start 03/27/17 at 08:15; Stop 03/27/17 at 08:16; Status DC Lidocaine/ Epinephrine (Xylocaine 1%-Epi 1:100,000) 20 ml STK-MED ONCE .ROUTE ; Start 03/27/17 at 08:15; Stop 03/27/17 at 08:16; Status DC Heparin Sodium/ Sodium Chloride 500 ml @ As Directed STK-MED ONCE .ROUTE ; Start 03/27/17 at 08:15; Stop 03/27/17 at 08:16; Status DC Heparin Sodium/ Sodium Chloride 1,000 unit 1X ONCE IART Last administered on 03/27/17 10:53; Start 03/27/17 at 10:30; Stop 03/27/17 at 10:45; Status DC Lidocaine/ Epinephrine (Xylocaine 1%-Epi 1:100,000) 20 ml 1X ONCE INJ Last administered on 03/27/17 10:53; Start 03/27/17 at 10:30; Stop 03/27/17 at 10 :45; Status DC Heparin Sodium (Porcine) (Heparin Sodium) 3,800 unit 1X ONCE INT CAT Last administered on 03/27/17 10:54; Start 03/27/17 at 10:30; Stop 03/27/17 at 10 :45; Status DC Active Scripts Active Reported Multivitamins (Multivitamin) 1 Each Tablet 1 Tab PO DAILY Omeprazole 20 Mg Capsule.dr 1 Cap PO DAILY Vitals/I & O Vital Sign - Last 24 Hours 03/26/17 03/26/17 03/26/17 03/26/17 11:55 12:00 12:50 13:00 Pulse 100 101 96 Resp 18 16 B/P (MAP) 114/76 (89) 107/69 (82) 103/64 (77) Pulse Ox 100 100 100 O2 Delivery Ventilator Ventilator Ventilator 03/26/17 03/26/17 03/26/17 03/26/17 13:51 14:00 14:00 15:00 Pulse 98 98 93 Resp 27 B/P (MAP) 105/69 (81) 103/72 (82) 110/66 (81) Pulse Ox 100 98 O2 Delivery Ventilator Ventilator 03/26/17 03/26/17 03/26/17 03/26/17 15:00 15:58 16:00 16:00 Temp 99.2 99.2 Pulse 96 93 93 Resp 24 16 B/P (MAP) 110/66 (81) 106/66 (79) 106/66 (79) Pulse Ox 99 100 100 O2 Delivery Ventilator Ventilator Ventilator 03/26/17 03/26/17 03/26/17 03/26/17 16:00 16:57 17:00 17:00 Pulse 95 95 Resp 16 B/P (MAP) 111/70 (84) 111/70 (84) Pulse Ox 100 100 O2 Delivery Mechanical Ventilator Ventilator Ventilator 03/26/17 03/26/17 03/26/17 03/26/17 18:00 18:00 19:00 20:00 Temp 99.0 99.0 Pulse 90 90 94 84 Resp 16 16 16 B/P (MAP) 109/66 (80) 109/66 (80) 112/70 (84) 107/61 (76) Pulse Ox 100 100 100 O2 Delivery Ventilator Ventilator Ventilator 03/26/17 03/26/17 03/26/17 03/26/17 20:00 20:00 20:20 21:00 Pulse 88 Resp 16 B/P (MAP) 108/60 (76) Pulse Ox 100 100 O2 Delivery Mechanical Ventilator Ventilator Ventilator 03/26/17 03/26/17 03/26/17 03/27/17 22:00 22:06 23:00 00:00 Pulse 84 81 Resp 16 16 B/P (MAP) 102/57 (72) 109/61 (77) Pulse Ox 99 100 100 O2 Delivery Ventilator Ventilator Ventilator 03/27/17 03/27/17 03/27/17 03/27/17 00:00 00:00 00:12 01:00 Temp 97.9 97.9 Pulse 83 74 Resp 16 16 B/P (MAP) 108/61 (77) 111/63 (79) Pulse Ox 100 100 100 O2 Delivery Ventilator Mechanical Ventilator Ventilator Ventilator 03/27/17 03/27/17 03/27/17 03/27/17 02:00 02:45 03:00 04:00 Pulse 73 83 Resp 16 16 B/P (MAP) 111/64 (80) 122/69 (86) Pulse Ox 100 100 100 O2 Delivery Ventilator Ventilator Ventilator Mechanical Ventilator 03/27/17 03/27/17 03/27/17 03/27/17 04:00 04:00 05:00 05:05 Temp 98.3 98.3 Pulse 84 86 Resp 16 16 B/P (MAP) 120/68 (85) 120/68 (85) Pulse Ox 100 100 100 O2 Delivery Ventilator Ventilator Ventilator 03/27/17 03/27/17 03/27/17 03/27/17 06:00 07:00 07:48 08:00 Temp 98.8 98.8 Pulse 84 78 82 Resp 16 15 15 B/P (MAP) 120/67 (84) 116/62 (80) 125/71 (89) Pulse Ox 100 100 100 100 O2 Delivery Ventilator Ventilator Ventilator Ventilator 03/27/17 03/27/17 03/27/17 09:00 09:50 11:21 Pulse 76 Resp 15 B/P (MAP) 122/67 (85) Pulse Ox 99 100 100 O2 Delivery Ventilator Ventilator Ventilator Intake and Output 03/27/17 03/27/17 03/28/17 15:00 23:00 07:00 Output Total 125 ml Balance -125 ml REBECCA WATTL K III DO Mar 27, 2017 12:03
--- NOTE | 2017-03-27 12:15 | PDOC ---
JORGE DEVI JUKEBOX ROUTEMAN 03/27/17 1215: SURGICAL PROGRESS NOTE Subjective intubated off pressors weaning off sedation Vital Signs Vital Signs Date Time Temp Pulse Resp B/P (MAP) Pulse Ox O2 Delivery O2 Flow Rate FiO2 03/27/17 11:21 100 Ventilator 03/27/17 09:00 76 15 122/67 (85) 03/27/17 07:00 98.8 98.8 I&O Intake and Output 03/28/17 07:00 Output Total 125 ml Balance -125 ml Output Urine Total 125 ml Abdomen: Soft, Other (lap sites c/d/i) Labs Laboratory Tests Test 03/25/17 13:29 03/25/17 13:30 03/25/17 13:42 03/25/17 15:00 Glucose (Fingerstick) 133 mg/dL (70-99) White Blood Count 21.6 x10^3/uL (4.0-11.0) Red Blood Count 4.16 x10^6/uL (3.50-5.40) Hemoglobin 12.3 g/dL (12.0-15.5) Hematocrit 37.2 % (36.0-47.0) Mean Corpuscular Volume 90 fL (79-100) Mean Corpuscular Hemoglobin 30 pg (25-35) Mean Corpuscular Hemoglobin Concent 33 g/dL (31-37) Red Cell Distribution Width 15.7 % (11.5-14.5) Platelet Count 539 x10^3/uL (140-400) Neutrophils (%) (Auto) 64 % (31-73) Lymphocytes (%) (Auto) 27 % (24-48) Monocytes (%) (Auto) 6 % (0-9) Eosinophils (%) (Auto) 1 % (0-3) Basophils (%) (Auto) 2 % (0-3) Neutrophils # (Auto) 13.8 x10^3uL (1.8-7.7) Lymphocytes # (Auto) 5.9 x10^3/uL (1.0-4.8) Monocytes # (Auto) 1.3 x10^3/uL (0.0-1.1) Eosinophils # (Auto) 0.3 x10^3/uL (0.0-0.7) Basophils # (Auto) 0.4 x10^3/uL (0.0-0.2) Segmented Neutrophils % 61 % (35-66) Band Neutrophils % 4 % (0-9) Lymphocytes % 26 % (24-48) Atypical Lymphocytes % (Manual) 5 % (0-0) Monocytes % 3 % (0-10) Eosinophils % 1 % (0-5) Platelet Estimate Increased (ADEQUATE) Giant Platelets Few Anisocytosis Slight Sodium Level 146 mmol/L (136-145) Potassium Level 3.9 mmol/L (3.5-5.1) Chloride Level 106 mmol/L (98-107) Carbon Dioxide Level 25 mmol/L (21-32) Anion Gap 15 (6-14) Blood Urea Nitrogen 30 mg/dL (7-20) Creatinine 6.3 mg/dL (0.6-1.0) Estimated GFR (Cockcroft-Gault) 7.9 BUN/Creatinine Ratio 5 (6-20) Glucose Level 145 mg/dL (70-99) Calcium Level 9.7 mg/dL (8.5-10.1) Total Bilirubin 0.3 mg/dL (0.2-1.0) Aspartate Amino Transf (AST/SGOT) 17 U/L (15-37) Alanine Aminotransferase (ALT/SGPT) 20 U/L (14-59) Alkaline Phosphatase 67 U/L (46-116) Creatine Kinase 26 U/L (26-192) Total Protein 7.2 g/dL (6.4-8.2) Albumin 2.3 g/dL (3.4-5.0) Albumin/Globulin Ratio 0.5 (1.0-1.7) Thyroid Stimulating Hormone (TSH) 11.117 uIU/mL (0.358-3.74) O2 Saturation 91 % (92-99) Arterial Blood pH 7.26 (7.35-7.45) Arterial Blood pCO2 at Patient Temp 36 mmHg (35-46) Arterial Blood pO2 at Patient Temp 74 mmHg (85-108) Arterial Blood HCO3 16 mmol/L (21-28) Arterial Blood Base Excess -10 mmol/L (-3-3) FiO2 100 Nasal Screen MRSA (PCR) Negative (Negative) Test 03/25/17 17:00 03/25/17 19:30 03/26/17 06:05 03/26/17 09:10 Urine Opiates Screen Neg (NEG) Urine Methadone Screen Neg (NEG) Urine Barbiturates Neg (NEG) Urine Phencyclidine Screen Neg (NEG) Urine Amphetamine/Methamphetamine Neg (NEG) Urine Benzodiazepines Screen Pos (NEG) Urine Cocaine Screen Neg (NEG) Urine Cannabinoids Screen Neg (NEG) Urine Ethyl Alcohol Neg (NEG) O2 Saturation 98 % (92-99) 99 % (92-99) Arterial Blood pH 7.46 (7.35-7.45) 7.43 (7.35-7.45) Arterial Blood pCO2 at Patient Temp 36 mmHg (35-46) 31 mmHg (35-46) Arterial Blood pO2 at Patient Temp 128 mmHg (85-108) 141 mmHg (85-108) Arterial Blood HCO3 25 mmol/L (21-28) 20 mmol/L (21-28) Arterial Blood Base Excess 1 mmol/L (-3-3) -3 mmol/L (-3-3) FiO2 90 40 White Blood Count 17.3 x10^3/uL (4.0-11.0) Red Blood Count 3.64 x10^6/uL (3.50-5.40) Hemoglobin 10.8 g/dL (12.0-15.5) Hematocrit 33.0 % (36.0-47.0) Mean Corpuscular Volume 91 fL (79-100) Mean Corpuscular Hemoglobin 30 pg (25-35) Mean Corpuscular Hemoglobin Concent 33 g/dL (31-37) Red Cell Distribution Width 15.8 % (11.5-14.5) Platelet Count 460 x10^3/uL (140-400) Neutrophils (%) (Auto) 70 % (31-73) Lymphocytes (%) (Auto) 22 % (24-48) Monocytes (%) (Auto) 6 % (0-9) Eosinophils (%) (Auto) 0 % (0-3) Basophils (%) (Auto) 1 % (0-3) Neutrophils # (Auto) 12.2 x10^3uL (1.8-7.7) Lymphocytes # (Auto) 3.7 x10^3/uL (1.0-4.8) Monocytes # (Auto) 1.1 x10^3/uL (0.0-1.1) Eosinophils # (Auto) 0.1 x10^3/uL (0.0-0.7) Basophils # (Auto) 0.2 x10^3/uL (0.0-0.2) Sodium Level 142 mmol/L (136-145) Potassium Level 3.9 mmol/L (3.5-5.1) Chloride Level 106 mmol/L (98-107) Carbon Dioxide Level 25 mmol/L (21-32) Anion Gap 11 (6-14) Blood Urea Nitrogen 27 mg/dL (7-20) Creatinine 4.6 mg/dL (0.6-1.0) Estimated GFR (Cockcroft-Gault) 11.3 Glucose Level 123 mg/dL (70-99) Lactic Acid Level 1.2 mmol/L (0.4-2.0) Calcium Level 8.0 mg/dL (8.5-10.1) Phosphorus Level 3.9 mg/dL (2.6-4.7) Albumin 1.8 g/dL (3.4-5.0) Free Thyroxine 1.24 ng/dL (0.76-1.46) Free Triiodothyronine (T3) pg/mL 1.67 pg/mL (2.18-3.98) Test 03/26/17 14:25 03/27/17 06:10 03/27/17 08:06 03/27/17 08:45 O2 Saturation 98 % (92-99) 98 % (92-99) Arterial Blood pH 7.48 (7.35-7.45) 7.46 (7.35-7.45) Arterial Blood pCO2 at Patient Temp 34 mmHg (35-46) 37 mmHg (35-46) Arterial Blood pO2 at Patient Temp 115 mmHg (85-108) 119 mmHg (85-108) Arterial Blood HCO3 24 mmol/L (21-28) 26 mmol/L (21-28) Arterial Blood Base Excess 1 mmol/L (-3-3) 2 mmol/L (-3-3) FiO2 40 40 White Blood Count 10.1 x10^3/uL (4.0-11.0) Red Blood Count 3.30 x10^6/uL (3.50-5.40) Hemoglobin 9.9 g/dL (12.0-15.5) Hematocrit 29.4 % (36.0-47.0) Mean Corpuscular Volume 89 fL (79-100) Mean Corpuscular Hemoglobin 30 pg (25-35) Mean Corpuscular Hemoglobin Concent 34 g/dL (31-37) Red Cell Distribution Width 15.6 % (11.5-14.5) Platelet Count 284 x10^3/uL (140-400) Neutrophils (%) (Auto) 69 % (31-73) Lymphocytes (%) (Auto) 19 % (24-48) Monocytes (%) (Auto) 7 % (0-9) Eosinophils (%) (Auto) 4 % (0-3) Basophils (%) (Auto) 1 % (0-3) Neutrophils # (Auto) 7.0 x10^3uL (1.8-7.7) Lymphocytes # (Auto) 1.9 x10^3/uL (1.0-4.8) Monocytes # (Auto) 0.7 x10^3/uL (0.0-1.1) Eosinophils # (Auto) 0.4 x10^3/uL (0.0-0.7) Basophils # (Auto) 0.1 x10^3/uL (0.0-0.2) Sodium Level 141 mmol/L (136-145) Potassium Level 3.7 mmol/L (3.5-5.1) Chloride Level 106 mmol/L (98-107) Carbon Dioxide Level 26 mmol/L (21-32) Anion Gap 9 (6-14) Blood Urea Nitrogen 31 mg/dL (7-20) Creatinine 4.4 mg/dL (0.6-1.0) Estimated GFR (Cockcroft-Gault) 11.9 BUN/Creatinine Ratio 7 (6-20) Glucose Level 94 mg/dL (70-99) Calcium Level 8.6 mg/dL (8.5-10.1) Phosphorus Level 3.3 mg/dL (2.6-4.7) Total Bilirubin 0.3 mg/dL (0.2-1.0) Aspartate Amino Transf (AST/SGOT) 27 U/L (15-37) Alanine Aminotransferase (ALT/SGPT) 32 U/L (14-59) Alkaline Phosphatase 54 U/L (46-116) Total Protein 5.7 g/dL (6.4-8.2) Albumin 1.7 g/dL (3.4-5.0) Albumin/Globulin Ratio 0.4 (1.0-1.7) Prothrombin Time 15.0 SEC (11.7-14.0) Prothromb Time International Ratio 1.3 (0.8-1.1) Activated Partial Thromboplast Time 27 SEC (24-38) Laboratory Tests Test 03/26/17 14:25 03/27/17 06:10 03/27/17 08:06 03/27/17 08:45 O2 Saturation 98 % (92-99) 98 % (92-99) Arterial Blood pH 7.48 (7.35-7.45) 7.46 (7.35-7.45) Arterial Blood pCO2 at Patient Temp 34 mmHg (35-46) 37 mmHg (35-46) Arterial Blood pO2 at Patient Temp 115 mmHg (85-108) 119 mmHg (85-108) Arterial Blood HCO3 24 mmol/L (21-28) 26 mmol/L (21-28) Arterial Blood Base Excess 1 mmol/L (-3-3) 2 mmol/L (-3-3) FiO2 40 40 White Blood Count 10.1 x10^3/uL (4.0-11.0) Red Blood Count 3.30 x10^6/uL (3.50-5.40) Hemoglobin 9.9 g/dL (12.0-15.5) Hematocrit 29.4 % (36.0-47.0) Mean Corpuscular Volume 89 fL (79-100) Mean Corpuscular Hemoglobin 30 pg (25-35) Mean Corpuscular Hemoglobin Concent 34 g/dL (31-37) Red Cell Distribution Width 15.6 % (11.5-14.5) Platelet Count 284 x10^3/uL (140-400) Neutrophils (%) (Auto) 69 % (31-73) Lymphocytes (%) (Auto) 19 % (24-48) Monocytes (%) (Auto) 7 % (0-9) Eosinophils (%) (Auto) 4 % (0-3) Basophils (%) (Auto) 1 % (0-3) Neutrophils # (Auto) 7.0 x10^3uL (1.8-7.7) Lymphocytes # (Auto) 1.9 x10^3/uL (1.0-4.8) Monocytes # (Auto) 0.7 x10^3/uL (0.0-1.1) Eosinophils # (Auto) 0.4 x10^3/uL (0.0-0.7) Basophils # (Auto) 0.1 x10^3/uL (0.0-0.2) Sodium Level 141 mmol/L (136-145) Potassium Level 3.7 mmol/L (3.5-5.1) Chloride Level 106 mmol/L (98-107) Carbon Dioxide Level 26 mmol/L (21-32) Anion Gap 9 (6-14) Blood Urea Nitrogen 31 mg/dL (7-20) Creatinine 4.4 mg/dL (0.6-1.0) Estimated GFR (Cockcroft-Gault) 11.9 BUN/Creatinine Ratio 7 (6-20) Glucose Level 94 mg/dL (70-99) Calcium Level 8.6 mg/dL (8.5-10.1) Phosphorus Level 3.3 mg/dL (2.6-4.7) Total Bilirubin 0.3 mg/dL (0.2-1.0) Aspartate Amino Transf (AST/SGOT) 27 U/L (15-37) Alanine Aminotransferase (ALT/SGPT) 32 U/L (14-59) Alkaline Phosphatase 54 U/L (46-116) Total Protein 5.7 g/dL (6.4-8.2) Albumin 1.7 g/dL (3.4-5.0) Albumin/Globulin Ratio 0.4 (1.0-1.7) Prothrombin Time 15.0 SEC (11.7-14.0) Prothromb Time International Ratio 1.3 (0.8-1.1) Activated Partial Thromboplast Time 27 SEC (24-38) Problem List no surgical recs supportive care Problems: MAIRA DANIELLE MD 03/27/17 1340: SURGICAL PROGRESS NOTE Assessment/Plan pt seen and examined weaning in progress no new surg recs Dr Kamala ibarra tomorrow Problems: JORGE DEVI JUKEBOX ROUTEMAN Mar 27, 2017 12:15 MAIRA DANIELLE MD Mar 27, 2017 13:40
--- NOTE | 2017-03-27 12:35 | PDOC ---
SUBJECTIVE ROS EMILY/ ATN remains min sedated and intuabted OBJECTIVE Vital Signs Vital Signs Date Time Temp Pulse Resp B/P (MAP) Pulse Ox O2 Delivery O2 Flow Rate FiO2 03/27/17 12:20 Ventilator 03/27/17 11:21 100 03/27/17 09:00 76 15 122/67 (85) 03/27/17 07:00 98.8 98.8 I & 0 Intake and Output 03/28/17 07:00 Output Total 125 ml Balance -125 ml Output Urine Total 125 ml PHYSICAL EXAM Physical Exam GEN: Awake (min) on the Vent, In no distress EYES: Vision Unchanged, Conjunctiva Normal EN: No EN Drainage, Mucous Membranes moist NECK: no JVD, no JVP, Supple, no Thyromegaly CVS: S1S2, no Murmur, No Gallop, No Rub,no Edema RESP: no Rales, no Rhonchi,no Acc. Muscle Use GI: BS hypoactive, NO Bruit, min Tender, Non Distended : no CVA tenderness, no Suprapubic Tenderness DIAGNOSIS/ASSESSMENT Assessment & Plan EMILY/ ATN - suspect CAN from 1st CT scan with IVF : Doubt Uremic Sz. Dialysis as below F 180 NR 3 Hrs 4 K 2.5 Ca 140 Na 35 HC03 Qb 350 + Qd 500+ Heparin 0 Units Uf 0 Kgs or to dry weight as tolerated May give 25-50 gms of 25% Albumin if needed to maintain Hemodynamic stability Treatment plan reviewed and discussed with transportation agent Sz - will check CK again since previous one was WNL hypoAlbuminemia - on PPN for now - ? Change to TPN vs Oral feeds when cleared to take PO from surgery standpoint ANEMIA: EPO prn HTN: Current BP meds as reviewed. See orders for changes. TPN management Discussed Plan of Care with family at bedside Problems: COMMENT/RELEVANT DATA Meds Current Medications Medications (Trade) Dose Ordered Sig/Mildred Start Time Stop Time Status Last Admin Dose Admin Acetaminophen (Tylenol) 650 mg PRN Q6HRS PRN 03/25/17 18:30 03/25/17 18:44 650 MG Acetaminophen/ Hydrocodone Bitart (Lortab 5/325) 2 tab PRN Q4HRS PRN 03/16/17 09:15 03/16/17 13:05 DC 03/16/17 10:16 2 TAB Adenosine (Adenocard) 12 mg 1X ONCE 03/25/17 16:00 03/25/17 16:01 DC 03/25/17 15:48 12 MG Al Hydroxide/Mg Hydroxide (Mylanta Plus Xs) 30 ml PRN Q2HR PRN 03/20/17 11:15 Albuterol Sulfate (Ventolin Neb Soln) 2.5 mg PRN 1X PRN 03/15/17 15:45 03/16/17 15:44 DC Amino Acids/ Glycerin/ Electrolytes 1,000 ml @ 80 mls/hr [id number] 03/22/17 11:45 03/27/17 06:09 80 MLS/HR Amoxicillin/ Clavulanate Potassium (Augmentin 500/ 125mg) 1 tab BID 03/23/17 10:30 03/25/17 14:03 DC 03/25/17 08:31 1 TAB Bupivacaine HCl/ Epinephrine Bitart (Marcaine-Epi 0.5%-1:[id number]) 50 ml STK-MED ONCE 03/15/17 13:07 03/15/17 14:08 DC 03/15/17 14:54 8 ML Calcium Carbonate/ Glycine (Tums) 1,000 mg PRN Q4HRS PRN 03/17/17 23:45 03/17/17 23:57 1,000 MG Cefoxitin Sodium 100 ml @ As Directed STK-MED ONCE 03/15/17 14:53 03/15/17 14:54 DC Cefoxitin Sodium 2 gm/Sodium Chloride 100 ml @ 200 mls/hr 1X PREOP 03/15/17 16:00 03/16/17 14:41 DC 03/15/17 14:55 200 MLS/HR Chlorhexidine Gluconate (Peridex) 15 ml BID 03/26/17 21:00 03/27/17 07:45 15 ML Dexamethasone Sodium Phosphate (Decadron) 8 mg 1X PRN PRN 03/15/17 15:45 03/16/17 15:44 DC Digoxin (Lanoxin) 500 mcg 1X ONCE 03/25/17 14:30 03/25/17 14:31 DC 03/25/17 14:34 500 MCG Diphenhydramine HCl (Benadryl) 12.5 mg PRN Q2HR PRN 03/15/17 15:45 03/16/17 15:44 DC Docusate Sodium (Colace) 100 mg BID 03/15/17 21:00 03/17/17 13:04 100 MG Enoxaparin Sodium (Lovenox 40mg Syringe) 40 mg DAILY 03/21/17 09:00 03/22/17 12:42 DC 03/21/17 08:09 40 MG Fentanyl Citrate 30 ml @ 0 mls/hr CONT PRN PRN 03/25/17 19:15 Fentanyl Citrate (Fentanyl 2ml Vial) 50 mcg PRN Q5MIN PRN 03/15/17 15:45 03/16/17 09:05 DC 03/15/17 15:58 50 MCG Fluconazole/ Sodium Chloride 100 ml @ 100 mls/hr Q24H 03/22/17 09:00 03/23/17 10:05 DC 03/22/17 09:30 100 MLS/HR Furosemide (Lasix) 80 mg 1X ONCE 03/24/17 11:30 03/24/17 11:31 DC 03/24/17 12:13 80 MG Heparin Sodium (Porcine) (Heparin Sodium) 3,800 unit 1X ONCE 03/27/17 10:30 03/27/17 10:45 DC 03/27/17 10:54 3,800 UNIT Heparin Sodium (Porcine) (Heparin Sq) 5,000 unit BID 03/26/17 21:00 03/26/17 21:17 5,000 UNIT Heparin Sodium/ Sodium Chloride 1,000 unit 1X ONCE 03/27/17 10:30 03/27/17 10:45 DC 03/27/17 10:53 1,000 UNIT Hydromorphone HCl (Dilaudid) 0.5 mg PRN Q10MIN PRN 03/15/17 16:15 03/16/17 09:05 DC 03/15/17 16:52 0.5 MG Info (Do NOT chart on this entry -- for MONITORING) 1 each PRN DAILY PRN 03/17/17 07:45 03/19/17 07:44 DC Info (PHARMACY MONITORING -- do not chart) 1 each PRN DAILY PRN 03/26/17 09:00 UNV Iohexol (Omnipaque 240 Mg/ml) 50 ml 1X ONCE 03/25/17 12:30 03/25/17 12:31 DC 03/25/17 12:32 50 ML Iohexol (Omnipaque 300 Mg/ml) 75 ml 1X ONCE 03/17/17 08:00 03/17/17 08:01 DC 03/17/17 08:00 75 ML Ketorolac Tromethamine (Toradol) 15 mg PRN Q6HRS PRN 03/15/17 15:30 03/16/17 09:05 DC Levetiracetam 500 mg/Sodium Chloride 100 ml @ 400 mls/hr Q12HR 03/25/17 15:00 03/25/17 15:00 DC Levetiracetam 750 mg/Sodium Chloride 107.5 ml @ 400 mls/hr Q12HR 03/25/17 15:00 03/27/17 11:29 400 MLS/HR Levothyroxine Sodium 15 mcg/ Sodium Chloride 5 ml @ 100 mls/hr DAILY 03/26/17 14:00 03/27/17 11:28 100 MLS/HR Lidocaine HCl (Lidocaine Pf 2% Vial) 5 ml STK-MED ONCE 03/15/17 14:06 03/15/17 14:07 DC Lidocaine HCl (Xylocaine-Mpf 1% Vial) 0.5 ml 1X PRN PRN 03/15/17 15:45 03/16/17 15:44 DC Lidocaine/ Epinephrine (Xylocaine 1%-Epi 1:100,000) 20 ml 1X ONCE 03/27/17 10:30 03/27/17 10:45 DC 03/27/17 10:53 8 ML Loperamide HCl (Imodium) 2 mg PRN Q15MIN PRN 03/23/17 08:00 Lorazepam (Ativan) 2 mg PRN Q4HRS PRN 03/25/17 15:30 03/25/17 15:55 2 MG Meperidine HCl (Demerol) 15 mg 1X PERIOP PRN 03/15/17 15:45 03/16/17 15:44 DC Metoclopramide HCl (Reglan) 10 mg PRN Q6HRS PRN 03/15/17 15:45 03/16/17 15:44 DC 03/15/17 18:49 10 MG Midazolam HCl (Versed) 5 mg 1X ONCE 03/25/17 16:00 03/25/17 16:01 DC 03/25/17 15:48 5 MG Morphine Sulfate 4 mg PRN Q2HR PRN 03/16/17 13:15 03/18/17 14:11 4 MG Multivitamins (Thera M Plus) 1 tab DAILY 03/16/17 13:00 03/27/17 11:29 1 TAB Norepinephrine Bitartrate 250 ml @ 0 mls/hr CONT PRN 03/25/17 14:30 03/25/17 21:53 28.125 MLS/HR Ondansetron HCl (Zofran) 8 mg PRN Q8HRS PRN 03/22/17 09:15 03/25/17 06:17 8 MG Oxycodone/ Acetaminophen (Percocet 7.5/ 325) 1 tab PRN Q4HRS PRN 03/16/17 13:15 03/23/17 14:59 1 TAB Pantoprazole Sodium (Protonix Vial) 40 mg BID 03/25/17 21:00 03/27/17 11:29 40 MG Pantoprazole Sodium (Protonix) 40 mg BIDAC 03/20/17 16:30 03/25/17 16:05 DC 03/25/17 08:31 40 MG Piperacillin Sod/ Tazobactam Sod 2.25 gm/Sodium Chloride 50 ml @ 100 mls/hr Q8HRS 03/25/17 15:00 03/27/17 06:09 100 MLS/HR Piperacillin Sod/ Tazobactam Sod 3.375 gm/Sodium Chloride 50 ml @ 100 mls/hr Q12HR 03/21/17 21:00 03/21/17 21:00 DC Potassium Chloride (Klor-Con) 40 meq 1X ONCE 03/18/17 12:45 03/18/17 12:46 DC 03/18/17 14:14 40 MEQ Prochlorperazine Edisylate (Compazine) 10 mg PRN Q8HRS PRN 03/22/17 09:15 03/25/17 10:23 10 MG Prochlorperazine Maleate (Compazine) 5 mg 1X PACU PRN 03/15/17 16:00 03/19/17 19:03 DC Promethazine HCl (Phenergan) 25 mg PRN Q6HRS PRN 03/23/17 15:15 Propofol 100 ml @ 0 mls/hr CONT PRN 03/25/17 15:45 03/27/17 11:00 23.1 MLS/HR Ringer's Solution 1,000 ml @ 125 mls/hr Q8H 03/15/17 15:42 03/15/17 21:41 DC Rocuronium [place] (Zemuron) 100 mg STK-MED ONCE 03/15/17 14:07 03/15/17 14:08 DC Simethicone (Gas-X) 80 mg PRN AFTMEALHC PRN 03/20/17 11:15 03/22/17 08:55 80 MG Sodium Bicarbonate 150 meq 1X ONCE 03/25/17 16:00 03/25/17 16:01 DC 03/25/17 15:43 150 MEQ Sodium Chloride 1,000 ml @ 400 mls/hr Q2H30M PRN 03/26/17 08:46 03/26/17 20:45 DC Sodium Chloride (Normal Saline Flush) 10 ml 1X PRN PRN 03/26/17 09:00 03/27/17 08:59 DC Succinylcholine Chloride (Anectine) 200 mg STK-MED ONCE 03/15/17 14:07 03/15/17 14:08 DC Vancomycin HCl 1 each 1X ONCE 03/19/17 13:30 03/19/17 13:30 DC Vancomycin HCl (Vanco Per Pharmacy) 1 each PRN DAILY PRN 03/17/17 08:00 03/19/17 11:10 DC 03/18/17 14:24 1 EACH Vancomycin HCl 2 gm/Sodium Chloride 500 ml @ 250 mls/hr Q8H 03/17/17 22:00 03/19/17 11:10 DC 03/19/17 05:41 250 MLS/HR Lab Laboratory Tests Test 03/26/17 14:25 03/27/17 06:10 03/27/17 08:06 03/27/17 08:45 O2 Saturation 98 % (92-99) 98 % (92-99) Arterial Blood pH 7.48 (7.35-7.45) 7.46 (7.35-7.45) Arterial Blood pCO2 at Patient Temp 34 mmHg (35-46) 37 mmHg (35-46) Arterial Blood pO2 at Patient Temp 115 mmHg (85-108) 119 mmHg (85-108) Arterial Blood HCO3 24 mmol/L (21-28) 26 mmol/L (21-28) Arterial Blood Base Excess 1 mmol/L (-3-3) 2 mmol/L (-3-3) FiO2 40 40 White Blood Count 10.1 x10^3/uL (4.0-11.0) Red Blood Count 3.30 x10^6/uL (3.50-5.40) Hemoglobin 9.9 g/dL (12.0-15.5) Hematocrit 29.4 % (36.0-47.0) Mean Corpuscular Volume 89 fL (79-100) Mean Corpuscular Hemoglobin 30 pg (25-35) Mean Corpuscular Hemoglobin Concent 34 g/dL (31-37) Red Cell Distribution Width 15.6 % (11.5-14.5) Platelet Count 284 x10^3/uL (140-400) Neutrophils (%) (Auto) 69 % (31-73) Lymphocytes (%) (Auto) 19 % (24-48) Monocytes (%) (Auto) 7 % (0-9) Eosinophils (%) (Auto) 4 % (0-3) Basophils (%) (Auto) 1 % (0-3) Neutrophils # (Auto) 7.0 x10^3uL (1.8-7.7) Lymphocytes # (Auto) 1.9 x10^3/uL (1.0-4.8) Monocytes # (Auto) 0.7 x10^3/uL (0.0-1.1) Eosinophils # (Auto) 0.4 x10^3/uL (0.0-0.7) Basophils # (Auto) 0.1 x10^3/uL (0.0-0.2) Sodium Level 141 mmol/L (136-145) Potassium Level 3.7 mmol/L (3.5-5.1) Chloride Level 106 mmol/L (98-107) Carbon Dioxide Level 26 mmol/L (21-32) Anion Gap 9 (6-14) Blood Urea Nitrogen 31 mg/dL (7-20) Creatinine 4.4 mg/dL (0.6-1.0) Estimated GFR (Cockcroft-Gault) 11.9 BUN/Creatinine Ratio 7 (6-20) Glucose Level 94 mg/dL (70-99) Calcium Level 8.6 mg/dL (8.5-10.1) Phosphorus Level 3.3 mg/dL (2.6-4.7) Total Bilirubin 0.3 mg/dL (0.2-1.0) Aspartate Amino Transf (AST/SGOT) 27 U/L (15-37) Alanine Aminotransferase (ALT/SGPT) 32 U/L (14-59) Alkaline Phosphatase 54 U/L (46-116) Total Protein 5.7 g/dL (6.4-8.2) Albumin 1.7 g/dL (3.4-5.0) Albumin/Globulin Ratio 0.4 (1.0-1.7) Prothrombin Time 15.0 SEC (11.7-14.0) Prothromb Time International Ratio 1.3 (0.8-1.1) Activated Partial Thromboplast Time 27 SEC (24-38) VETO VILLANUEVA MD Mar 27, 2017 12:35
--- NOTE | 2017-03-27 12:56 | CARD ---
APPROVED REPORT EXAM: Two-dimensional and M-mode echocardiogram with Doppler and color Doppler. Other Information Quality : AverageHR: 94bpm Rhythm : NSR INDICATION post cardiac arrest 2D DIMENSIONS Left Atrium(2D)4.0 (1.6-4.0cm)IVSd0.8 (0.7-1.1cm) Aortic Root(2D)2.6 (2.0-3.7cm)LVDd5.5 (3.9-5.9cm) LVOT Diameter2.1 (1.8-2.4cm)PWd0.8 (0.7-1.1cm) LVDs4.6 (2.5-4.0cm)FS (%) 16.0 % SV49.0 mlLVEF(%)30.0 (>50%) Aortic Valve AoV Peak Rasheed.115.3cm/sAoV VTI19.2cm AO Peak GR.5.3mmHgLVOT Peak Rasheed.81.1cm/s AO Mean GR.4mmHgAVA (VMAX)2.54cm2 Mitral Valve MV E Zeetbdvm54.3cm/sMV DECEL [id number] MV A Ilcvjbkv68.2cm/sE/A Ratio1.0 Pulmonary Valve PV Peak Aeprwlje77.3cm/s Tricuspid Valve TR P. Hywmovdf852tt/sRAP [id number] TR Peak Gr.17mmHg LEFT VENTRICLE The left ventricle is mildly dilated There is normal left ventricular wall thickness. Left ventricle systolic function is moderately to severely impaired. The Ejection Fraction is 30%. RIGHT VENTRICLE The right ventricle is normal size. There is normal right ventricular wall thickness. The RV systolic function is mildly to moderately reduced. ATRIA The left atrium size is normal. The right atrium size is normal. Interatrial septum not well visualiz ed. AORTIC VALVE The aortic valve is normal in structure and function. Doppler and Color Flow revealed no significant aortic regurgitation. There is no significant aortic valvular stenosis. MITRAL VALVE The mitral valve is normal in structure There is no mitral valve stenosis. Doppler and Color-flow rev ealed trace to mild mitral regurgitation. TRICUSPID VALVE The tricuspid valve is normal in structure Doppler and Color Flow revealed trace tricuspid regurgitat ion. The PA pressure was estimated at 25 mmHg. There is no tricuspid valve stenosis. PULMONIC VALVE The pulmonary valve is normal in structure and function. Doppler and Color Flow revealed no pulmonic valvular regurgitation. There is no pulmonic valvular stenosis. GREAT VESSELS The aortic root is normal in size. Normal pulmonary venous flow (Doppler). The IVC is mildly dilated. Patient on atrificial respirator. PERICARDIAL EFFUSION There is no evidence of significant pericardial effusion. Critical Notification Critical Value: No <Conclusion> Left ventricle systolic function is moderately to severely impaired. The Ejection Fraction is 30%. The left ventricle is mildly dilated The RV systolic function is mildly to moderately reduced. The left atrium size is normal. The right atrium size is normal. The aortic valve is normal in structure and function. Doppler and Color-flow revealed trace to mild mitral regurgitation. Doppler and Color Flow revealed trace tricuspid regurgitation. The PA pressure was estimated at 25 mmHg. The pulmonary valve is normal in structure and function. There is no evidence of significant pericardial effusion.
[2017-03-27 12:57] LABS: HCO3 ABG 24 mmol/L (21-28); PCO2 ABG 35 mmHg (35-46); PH ABG 7.46 (7.35-7.45); PO2 ABG 72 mmHg (85-108); SAT O2 ABG 94 % (92-99)
--- NOTE | 2017-03-27 13:09 | RAD ---
Procedure: Tunneled hemodialysis catheter placement 03/27/2017 Clinical Indication: Renal failure Fluoro Time: 1.3 MINS DAP: 5 GYCM2 Sterility: All elements of maximal sterile barrier technique including the use of a cap, mask, sterile gown, sterile gloves, large sterile sheet, appropriate hand hygiene, and 2% chlorhexidine for cutaneous antisepsis (or acceptable alternative antiseptic per current guidelines) were followed for this procedure. Consent: The procedure was explained in its entirety to the patient or the patients designated desk representative by a member of the treatment team, including a discussion of the risks, benefits and commonly accepted alternatives to the procedure, as well as the expected consequences of no therapy whatsoever. Discussion of the risks included, but was not limited to, those that are most frequent and those that are rare but possibly severe or life-threatening, as well as the possibility of unforeseen complications. Technique and Findings: Following informed consent, the patient was prepped and draped in the usual sterile fashion. Ultrasound interrogation of the right neck revealed patency and compressibility of the right internal jugular vein. A 21-gauge micropuncture was then used to gain access to this vein under ultrasound guidance. A hard copy ultrasound image was recorded. The needle was exchanged over a wire for a 4 Georgian sheath which was used to guide an Amplatz wire into the IVC. The skin over the right anterior chest wall was copiously anesthetized with 1% Lidocaine plus Epinephrine and a small dermatotomy was made. 23 cm tip to cuff palindrome tunneled hemodialysis catheter was then tunneled subcutaneously towards the neck dermatotomy and deployed through a large caliber peel-away sheath under fluoroscopic guidance such that the distal tip resided in the mid right atrium. Manual flow rates were assessed and found to be excellent. The catheter was then flushed, packed with Heparin, capped, and sutured to the skin. The neck dermatotomy was closed with Dermabond. Impression: Successful ultrasound and fluoroscopically guided placement of right internal jugular tunnel dialysis catheter
--- NOTE | 2017-03-27 14:07 | PDOC ---
PROGRESS NOTES Subjective Subjective Patient remains off pressors and is still on mechanical ventilation this morning. Had HD catheter placed by IR this morning. Patient's family was at bedside echocardiogram shows LVEF 30% Objective Objective Vital Signs Date Time Temp Pulse Resp B/P (MAP) Pulse Ox O2 Delivery O2 Flow Rate FiO2 03/27/17 13:05 Nasal Cannula 3.0 03/27/17 13:00 98 20 140/80 (100) 94 03/27/17 12:00 98.6 98.6 Intake and Output 03/28/17 07:00 Output Total 775 ml Balance -775 ml Output Urine Total 775 ml Physical Exam Physical Exam General: on mechanical ventilation CV: regular rate and rhythm without murmurs on auscultation Resp: on ventilator; no focal abnormal breath sounds abd: obese, soft, non-distended Assessment Assessment Patient appears to be improving. HD line placed today by Interventional Radiology Echocardiogram completed: Left ventricle systolic function is moderately to severely impaired. The Ejection Fraction is 30%. The left ventricle is mildly dilated The RV systolic function is mildly to moderately reduced. The left atrium size is normal. The right atrium size is normal. The aortic valve is normal in structure and function. Doppler and Color-flow revealed trace to mild mitral regurgitation. Doppler and Color Flow revealed trace tricuspid regurgitation. The PA pressure was estimated at 25 mmHg. The pulmonary valve is normal in structure and function. There is no evidence of significant pericardial effusion. The etiology of this pt's cardiomyopathy is undetermined at this time but there may be some degree of stunning of the myocardium from the hypoxia, acidosis and hypotension. If this is stunning it may return to normal. Will start Carvedilol and Losartan when possible. She also needs evaluation/treatment for COURTNEY Comment Review of Relevant I have reviewed the following items na (where applicable) has been applied. Labs Laboratory Tests Test 03/25/17 15:00 03/25/17 17:00 03/25/17 19:30 03/26/17 06:05 Nasal Screen MRSA (PCR) Negative (Negative) Urine Opiates Screen Neg (NEG) Urine Methadone Screen Neg (NEG) Urine Barbiturates Neg (NEG) Urine Phencyclidine Screen Neg (NEG) Urine Amphetamine/Methamphetamine Neg (NEG) Urine Benzodiazepines Screen Pos (NEG) Urine Cocaine Screen Neg (NEG) Urine Cannabinoids Screen Neg (NEG) Urine Ethyl Alcohol Neg (NEG) O2 Saturation 98 % (92-99) Arterial Blood pH 7.46 (7.35-7.45) Arterial Blood pCO2 at Patient Temp 36 mmHg (35-46) Arterial Blood pO2 at Patient Temp 128 mmHg (85-108) Arterial Blood HCO3 25 mmol/L (21-28) Arterial Blood Base Excess 1 mmol/L (-3-3) FiO2 90 White Blood Count 17.3 x10^3/uL (4.0-11.0) Red Blood Count 3.64 x10^6/uL (3.50-5.40) Hemoglobin 10.8 g/dL (12.0-15.5) Hematocrit 33.0 % (36.0-47.0) Mean Corpuscular Volume 91 fL (79-100) Mean Corpuscular Hemoglobin 30 pg (25-35) Mean Corpuscular Hemoglobin Concent 33 g/dL (31-37) Red Cell Distribution Width 15.8 % (11.5-14.5) Platelet Count 460 x10^3/uL (140-400) Neutrophils (%) (Auto) 70 % (31-73) Lymphocytes (%) (Auto) 22 % (24-48) Monocytes (%) (Auto) 6 % (0-9) Eosinophils (%) (Auto) 0 % (0-3) Basophils (%) (Auto) 1 % (0-3) Neutrophils # (Auto) 12.2 x10^3uL (1.8-7.7) Lymphocytes # (Auto) 3.7 x10^3/uL (1.0-4.8) Monocytes # (Auto) 1.1 x10^3/uL (0.0-1.1) Eosinophils # (Auto) 0.1 x10^3/uL (0.0-0.7) Basophils # (Auto) 0.2 x10^3/uL (0.0-0.2) Sodium Level 142 mmol/L (136-145) Potassium Level 3.9 mmol/L (3.5-5.1) Chloride Level 106 mmol/L (98-107) Carbon Dioxide Level 25 mmol/L (21-32) Anion Gap 11 (6-14) Blood Urea Nitrogen 27 mg/dL (7-20) Creatinine 4.6 mg/dL (0.6-1.0) Estimated GFR (Cockcroft-Gault) 11.3 Glucose Level 123 mg/dL (70-99) Lactic Acid Level 1.2 mmol/L (0.4-2.0) Calcium Level 8.0 mg/dL (8.5-10.1) Phosphorus Level 3.9 mg/dL (2.6-4.7) Albumin 1.8 g/dL (3.4-5.0) Free Thyroxine 1.24 ng/dL (0.76-1.46) Free Triiodothyronine (T3) pg/mL 1.67 pg/mL (2.18-3.98) Test 03/26/17 09:10 03/26/17 14:25 03/27/17 06:10 03/27/17 08:06 O2 Saturation 99 % (92-99) 98 % (92-99) Arterial Blood pH 7.43 (7.35-7.45) 7.48 (7.35-7.45) Arterial Blood pCO2 at Patient Temp 31 mmHg (35-46) 34 mmHg (35-46) Arterial Blood pO2 at Patient Temp 141 mmHg (85-108) 115 mmHg (85-108) Arterial Blood HCO3 20 mmol/L (21-28) 24 mmol/L (21-28) Arterial Blood Base Excess -3 mmol/L (-3-3) 1 mmol/L (-3-3) FiO2 40 40 White Blood Count 10.1 x10^3/uL (4.0-11.0) Red Blood Count 3.30 x10^6/uL (3.50-5.40) Hemoglobin 9.9 g/dL (12.0-15.5) Hematocrit 29.4 % (36.0-47.0) Mean Corpuscular Volume 89 fL (79-100) Mean Corpuscular Hemoglobin 30 pg (25-35) Mean Corpuscular Hemoglobin Concent 34 g/dL (31-37) Red Cell Distribution Width 15.6 % (11.5-14.5) Platelet Count 284 x10^3/uL (140-400) Neutrophils (%) (Auto) 69 % (31-73) Lymphocytes (%) (Auto) 19 % (24-48) Monocytes (%) (Auto) 7 % (0-9) Eosinophils (%) (Auto) 4 % (0-3) Basophils (%) (Auto) 1 % (0-3) Neutrophils # (Auto) 7.0 x10^3uL (1.8-7.7) Lymphocytes # (Auto) 1.9 x10^3/uL (1.0-4.8) Monocytes # (Auto) 0.7 x10^3/uL (0.0-1.1) Eosinophils # (Auto) 0.4 x10^3/uL (0.0-0.7) Basophils # (Auto) 0.1 x10^3/uL (0.0-0.2) Sodium Level 141 mmol/L (136-145) Potassium Level 3.7 mmol/L (3.5-5.1) Chloride Level 106 mmol/L (98-107) Carbon Dioxide Level 26 mmol/L (21-32) Anion Gap 9 (6-14) Blood Urea Nitrogen 31 mg/dL (7-20) Creatinine 4.4 mg/dL (0.6-1.0) Estimated GFR (Cockcroft-Gault) 11.9 BUN/Creatinine Ratio 7 (6-20) Glucose Level 94 mg/dL (70-99) Calcium Level 8.6 mg/dL (8.5-10.1) Phosphorus Level 3.3 mg/dL (2.6-4.7) Total Bilirubin 0.3 mg/dL (0.2-1.0) Aspartate Amino Transf (AST/SGOT) 27 U/L (15-37) Alanine Aminotransferase (ALT/SGPT) 32 U/L (14-59) Alkaline Phosphatase 54 U/L (46-116) Creatine Kinase 29 U/L (26-192) Total Protein 5.7 g/dL (6.4-8.2) Albumin 1.7 g/dL (3.4-5.0) Albumin/Globulin Ratio 0.4 (1.0-1.7) Prothrombin Time 15.0 SEC (11.7-14.0) Prothromb Time International Ratio 1.3 (0.8-1.1) Activated Partial Thromboplast Time 27 SEC (24-38) Test 03/27/17 08:45 O2 Saturation 98 % (92-99) Arterial Blood pH 7.46 (7.35-7.45) Arterial Blood pCO2 at Patient Temp 37 mmHg (35-46) Arterial Blood pO2 at Patient Temp 119 mmHg (85-108) Arterial Blood HCO3 26 mmol/L (21-28) Arterial Blood Base Excess 2 mmol/L (-3-3) FiO2 40 Laboratory Tests Test 03/26/17 14:25 03/27/17 06:10 03/27/17 08:06 03/27/17 08:45 O2 Saturation 98 % (92-99) 98 % (92-99) Arterial Blood pH 7.48 (7.35-7.45) 7.46 (7.35-7.45) Arterial Blood pCO2 at Patient Temp 34 mmHg (35-46) 37 mmHg (35-46) Arterial Blood pO2 at Patient Temp 115 mmHg (85-108) 119 mmHg (85-108) Arterial Blood HCO3 24 mmol/L (21-28) 26 mmol/L (21-28) Arterial Blood Base Excess 1 mmol/L (-3-3) 2 mmol/L (-3-3) FiO2 40 40 White Blood Count 10.1 x10^3/uL (4.0-11.0) Red Blood Count 3.30 x10^6/uL (3.50-5.40) Hemoglobin 9.9 g/dL (12.0-15.5) Hematocrit 29.4 % (36.0-47.0) Mean Corpuscular Volume 89 fL (79-100) Mean Corpuscular Hemoglobin 30 pg (25-35) Mean Corpuscular Hemoglobin Concent 34 g/dL (31-37) Red Cell Distribution Width 15.6 % (11.5-14.5) Platelet Count 284 x10^3/uL (140-400) Neutrophils (%) (Auto) 69 % (31-73) Lymphocytes (%) (Auto) 19 % (24-48) Monocytes (%) (Auto) 7 % (0-9) Eosinophils (%) (Auto) 4 % (0-3) Basophils (%) (Auto) 1 % (0-3) Neutrophils # (Auto) 7.0 x10^3uL (1.8-7.7) Lymphocytes # (Auto) 1.9 x10^3/uL (1.0-4.8) Monocytes # (Auto) 0.7 x10^3/uL (0.0-1.1) Eosinophils # (Auto) 0.4 x10^3/uL (0.0-0.7) Basophils # (Auto) 0.1 x10^3/uL (0.0-0.2) Sodium Level 141 mmol/L (136-145) Potassium Level 3.7 mmol/L (3.5-5.1) Chloride Level 106 mmol/L (98-107) Carbon Dioxide Level 26 mmol/L (21-32) Anion Gap 9 (6-14) Blood Urea Nitrogen 31 mg/dL (7-20) Creatinine 4.4 mg/dL (0.6-1.0) Estimated GFR (Cockcroft-Gault) 11.9 BUN/Creatinine Ratio 7 (6-20) Glucose Level 94 mg/dL (70-99) Calcium Level 8.6 mg/dL (8.5-10.1) Phosphorus Level 3.3 mg/dL (2.6-4.7) Total Bilirubin 0.3 mg/dL (0.2-1.0) Aspartate Amino Transf (AST/SGOT) 27 U/L (15-37) Alanine Aminotransferase (ALT/SGPT) 32 U/L (14-59) Alkaline Phosphatase 54 U/L (46-116) Creatine Kinase 29 U/L (26-192) Total Protein 5.7 g/dL (6.4-8.2) Albumin 1.7 g/dL (3.4-5.0) Albumin/Globulin Ratio 0.4 (1.0-1.7) Prothrombin Time 15.0 SEC (11.7-14.0) Prothromb Time International Ratio 1.3 (0.8-1.1) Activated Partial Thromboplast Time 27 SEC (24-38) Microbiology 03/25/17 Blood Culture - Preliminary, Resulted NO GROWTH AFTER 1 DAY Medications Current Medications Dexamethasone Sodium Phosphate (Decadron) 20 mg STK-MED ONCE .ROUTE ; Start 03/15/17 at 14:06; Stop 03/15/17 at 14:07; Status DC Ondansetron HCl (Zofran) 4 mg STK-MED ONCE .ROUTE ; Start 03/15/17 at 14:06; Stop 03/15/17 at 14:07; Status DC Propofol 20 ml @ As Directed STK-MED ONCE IV ; Start 03/15/17 at 14:06; Stop at 14:07; Status DC Lidocaine HCl (Lidocaine Pf 2% Vial) 5 ml STK-MED ONCE .ROUTE ; Start 03/15/17 at 14:06; Stop 03/15/17 at 14:07; Status DC Midazolam HCl (Versed) 2 mg STK-MED ONCE .ROUTE ; Start 03/15/17 at 14:06; Stop 03/15/17 at 14:07; Status DC Fentanyl Citrate (Fentanyl 2ml Vial) 100 mcg STK-MED ONCE .ROUTE ; Start at 14:06; Stop 03/15/17 at 14:07; Status DC Rocuronium [place] (Zemuron) 100 mg STK-MED ONCE .ROUTE ; Start 03/15/17 at 14: 07; Stop 03/15/17 at 14:08; Status DC Succinylcholine Chloride (Anectine) 200 mg STK-MED ONCE .ROUTE ; Start 03/15/17 at 14:07; Stop 03/15/17 at 14:08; Status DC Bupivacaine HCl/ Epinephrine Bitart (Marcaine-Epi 0.5%-[id number]) 50 ml STK-MED ONCE .ROUTE Last administered on 03/15/17 14:54; Start 03/15/17 at 13:07; Stop 03/15/17 at 14:08; Status DC Cefoxitin Sodium 2 gm/Sodium Chloride 100 ml @ 200 mls/hr 1X PREOP IV Last administered on 03/15/17 14:55; Start 03/15/17 at 16:00; Stop 03/16/17 at 14:41 ; Status DC Sodium Chloride 1,000 ml @ 125 mls/hr 1X ONCE IV Last administered on 14:15; Start 03/15/17 at 14:15; Stop 03/15/17 at 22:14; Status DC Cefoxitin Sodium 100 ml @ As Directed STK-MED ONCE IV ; Start 03/15/17 at 14:53 ; Stop 03/15/17 at 14:54; Status DC Enoxaparin Sodium (Lovenox 40mg Syringe) 40 mg Q24H SQ ; Start 03/15/17 at 15:30 ; Stop 03/16/17 at 14:38; Status DC Sodium Chloride (Normal Saline Flush) 3 ml QSHIFT PRN IV AFTER MEDS AND BLOOD DRAWS; Start 03/15/17 at 15:30 Ringer's Solution 1,000 ml @ 75 mls/hr [id number] IV Last administered on 21:12; Start 03/15/17 at 15:19; Stop 03/27/17 at 12:51; Status DC Acetaminophen/ Hydrocodone Bitart (Lortab 5/325) 1 tab PRN Q4HRS PRN PO MILD PAIN Last administered on 03/16/17 02:56; Start 03/15/17 at 15:30; Stop at 13:05; Status DC Ketorolac Tromethamine (Toradol) 15 mg PRN Q6HRS PRN IV PAIN; Start 03/15/17 at 15:30; Stop 03/16/17 at 09:05; Status DC Morphine Sulfate 2 mg PRN Q1HR PRN IV PAIN Last administered on 03/22/17 09: 36; Start 03/15/17 at 15:30; Stop 03/27/17 at 12:51; Status DC Docusate Sodium (Colace) 100 mg BID PO Last administered on 03/17/17 13:04; Start 03/15/17 at 21:00 Ondansetron HCl (Zofran) 4 mg PRN Q6HRS PRN IV NAUESA, 1ST CHOICE Last administered on 03/22/17 06:34; Start 03/15/17 at 15:30; Stop 03/22/17 at 09: 09; Status DC Piperacillin Sod/ Tazobactam Sod 3.375 gm/Sodium Chloride 50 ml @ 100 mls/hr Q6HRS IV Last administered on 03/21/17 06:20; Start 03/15/17 at 18:00; Stop 03/21/17 at 09:24; Status DC Morphine Sulfate 10 mg STK-MED ONCE .ROUTE ; Start 03/15/17 at 15:32; Stop 03/15 at 15:33; Status DC Ringer's Solution 1,000 ml @ 125 mls/hr Q8H IV Last administered on 03/16/17 00:51; Start 03/15/17 at 15:42; Stop 03/16/17 at 03:41; Status DC Lidocaine HCl (Xylocaine-Mpf 1% Vial) 0.5 ml 1X PRN PRN INJ IV START; Start at 15:45; Stop 03/16/17 at 15:44; Status DC Ringer's Solution 1,000 ml @ 125 mls/hr Q8H IV ; Start 03/15/17 at 15:42; Stop 03/15/17 at 21:41; Status DC Fentanyl Citrate (Fentanyl 2ml Vial) 25 mcg PRN Q5MIN PRN IV Acute Pain; Start 03/15/17 at 15:45; Stop 03/16/17 at 09:05; Status DC Fentanyl Citrate (Fentanyl 2ml Vial) 50 mcg PRN Q5MIN PRN IV Acute Pain Last administered on 03/15/17 15:58; Start 03/15/17 at 15:45; Stop 03/16/17 at 09:05 ; Status DC Morphine Sulfate 2 mg PRN Q10MIN PRN IV Mild Pain; Start 03/15/17 at 15:45; Stop 03/16/17 at 09:05; Status DC Morphine Sulfate 4 mg PRN Q10MIN PRN IV Moderate Pain; Start 03/15/17 at 15:45 ; Stop 03/16/17 at 09:05; Status DC Ondansetron HCl (Zofran) 4 mg PRN Q6HRS PRN IV Nausea, 1st Choice; Start at 15:45; Stop 03/16/17 at 09:05; Status DC Metoclopramide HCl (Reglan) 10 mg PRN Q6HRS PRN IV Nausea/Vomiting, 2nd Choice Last administered on 03/15/17 18:49; Start 03/15/17 at 15:45; Stop 03/16/17 at 15:44; Status DC Diphenhydramine HCl (Benadryl) 12.5 mg PRN Q2HR PRN IV ITCHING; Start 03/15/17 at 15:45; Stop 03/16/17 at 15:44; Status DC Albuterol Sulfate (Ventolin Neb Soln) 2.5 mg PRN 1X PRN NEB Shortness of Breath , Wheezing; Start 03/15/17 at 15:45; Stop 03/16/17 at 15:44; Status DC Dexamethasone Sodium Phosphate (Decadron) 8 mg 1X PRN PRN IV 3RD CHOICE FOR NAUSEA; Start 03/15/17 at 15:45; Stop 03/16/17 at 15:44; Status DC Meperidine HCl (Demerol) 10 mg 1X PERIOP PRN IV SHIVERING; Start 03/15/17 at 15 :45; Stop 03/16/17 at 15:44; Status DC Meperidine HCl (Demerol) 15 mg 1X PERIOP PRN IV SHIVERING; Start 03/15/17 at 15 :45; Stop 03/16/17 at 15:44; Status DC Prochlorperazine Edisylate (Compazine) 10 mg STK-MED ONCE .ROUTE ; Start at 15:48; Stop 03/15/17 at 15:49; Status DC Prochlorperazine Maleate (Compazine) 5 mg 1X PACU PRN PO NAUSEA/VOMITING; Start 03/15/17 at 16:00; Stop 03/19/17 at 19:03; Status DC Hydromorphone HCl (Dilaudid) 0.5 mg PRN Q10MIN PRN IV PAIN Last administered on 03/15/17 16:52; Start 03/15/17 at 16:15; Stop 03/16/17 at 09:05; Status DC Acetaminophen/ Hydrocodone Bitart (Lortab 5/325) 2 tab PRN Q4HRS PRN PO PAIN Last administered on 03/16/17 10:16; Start 03/16/17 at 09:15; Stop 03/16/17 at 13:05; Status DC Multivitamins (Thera M Plus) 1 tab DAILY PO Last administered on 03/27/17 11: 29; Start 03/16/17 at 13:00 Pantoprazole Sodium (Protonix) 40 mg DAILYAC PO Last administered on 03/20/17 08:48; Start 03/16/17 at 13:00; Stop 03/20/17 at 11:14; Status DC Oxycodone/ Acetaminophen (Percocet 7.5/ 325) 1 tab PRN Q4HRS PRN PO PAIN Last administered on 03/23/17 14:59; Start 03/16/17 at 13:15 Morphine Sulfate 4 mg PRN Q2HR PRN IV PAIN Last administered on 03/18/17 14:11 ; Start 03/16/17 at 13:15; Stop 03/27/17 at 12:51; Status DC Enoxaparin Sodium (Lovenox 40mg Syringe) 40 mg Q12HR SQ Last administered on 08:47; Start 03/16/17 at 21:00; Stop 03/20/17 at 16:57; Status DC Iohexol (Omnipaque 300 Mg/ml) 75 ml 1X ONCE IV Last administered on 03/17/17 08:00; Start 03/17/17 at 08:00; Stop 03/17/17 at 08:01; Status DC Iohexol (Omnipaque 240 Mg/ml) 50 ml 1X ONCE PO Last administered on 03/17/17 08:00; Start 03/17/17 at 08:00; Stop 03/17/17 at 08:01; Status DC Info (Do NOT chart on this entry -- for MONITORING) 1 each PRN DAILY PRN MC SEE COMMENTS; Start 03/17/17 at 07:45; Stop 03/19/17 at 07:44; Status DC Sodium Chloride 1,000 ml @ 1,000 mls/hr 1X ONCE IV Last administered on 08:00; Start 03/17/17 at 08:00; Stop 03/17/17 at 08:59; Status DC Vancomycin HCl (Vanco Per Pharmacy) 1 each PRN DAILY PRN MC SEE COMMENTS Last administered on 03/18/17 14:24; Start 03/17/17 at 08:00; Stop 03/19/17 at 11:10 ; Status DC Fluconazole/ Sodium Chloride 200 ml @ 100 mls/hr Q24H IV Last administered on 03/21/17 08:07; Start 03/17/17 at 09:00; Stop 03/21/17 at 09:24; Status DC Vancomycin HCl 2 gm/Sodium Chloride 500 ml @ 250 mls/hr 1X ONCE IV Last administered on 03/17/17 13:08; Start 03/17/17 at 09:00; Stop 03/17/17 at 10:59 ; Status DC Acetaminophen (Tylenol) 650 mg PRN Q6HRS PRN PO FEVER Last administered on 16:34; Start 03/17/17 at 08:15 Vancomycin HCl 2 gm/Sodium Chloride 500 ml @ 250 mls/hr Q8H IV Last administered on 03/19/17 05:41; Start 03/17/17 at 22:00; Stop 03/19/17 at 11:10 ; Status DC Vancomycin HCl 1 each 1X ONCE MC ; Start 03/18/17 at 13:30; Stop 03/18/17 at 13 :31; Status DC Calcium Carbonate/ Glycine (Tums) 1,000 mg PRN Q4HRS PRN PO INDIGESTION Last administered on 03/17/17 23:57; Start 03/17/17 at 23:45 Potassium Chloride (Klor-Con) 40 meq 1X ONCE PO Last administered on 14:14; Start 03/18/17 at 12:45; Stop 03/18/17 at 12:46; Status DC Vancomycin HCl 1 each 1X ONCE MC ; Start 03/19/17 at 13:30; Stop 03/19/17 at 13 :30; Status DC Sodium Chloride 1,000 ml @ 1,000 mls/hr 1X ONCE IV Last administered on 14:28; Start 03/19/17 at 12:15; Stop 03/19/17 at 13:14; Status DC Pantoprazole Sodium (Protonix) 40 mg BIDAC PO Last administered on 03/25/17 08:31; Start 03/20/17 at 16:30; Stop 03/25/17 at 16:05; Status DC Simethicone (Gas-X) 80 mg PRN AFTMEALHC PRN PO GAS / BLOATING Last administered on 03/22/17 08:55; Start 03/20/17 at 11:15 Al Hydroxide/Mg Hydroxide (Mylanta Plus Xs) 30 ml PRN Q2HR PRN PO HEARTBURN / GAS; Start 03/20/17 at 11:15 Enoxaparin Sodium (Lovenox 40mg Syringe) 40 mg DAILY SQ Last administered on 08:09; Start 03/21/17 at 09:00; Stop 03/22/17 at 12:42; Status DC Fluconazole/ Sodium Chloride 100 ml @ 100 mls/hr Q24H IV ; Start 03/22/17 at 09:00; Stop 03/22/17 at 09:00; Status DC Piperacillin Sod/ Tazobactam Sod 3.375 gm/Sodium Chloride 50 ml @ 100 mls/hr Q12HR IV ; Start 03/21/17 at 21:00; Stop 03/21/17 at 21:00; Status DC Fluconazole/ Sodium Chloride 100 ml @ 100 mls/hr Q24H IV Last administered on 03/22/17 09:30; Start 03/22/17 at 09:00; Stop 03/23/17 at 10:05; Status DC Piperacillin Sod/ Tazobactam Sod 2.25 gm/Sodium Chloride 50 ml @ 100 mls/hr Q6HRS IV Last administered on 03/23/17 05:58; Start 03/21/17 at 12:00; Stop 03/23/17 at 10:05; Status DC Ondansetron HCl (Zofran) 8 mg PRN Q8HRS PRN IV NAUESA, 1ST CHOICE Last administered on 03/25/17 06:17; Start 03/22/17 at 09:15 Prochlorperazine Edisylate (Compazine) 10 mg PRN Q8HRS PRN IV NAUSEA/VOMITING - 2nd choice Last administered on 03/25/17 10:23; Start 03/22/17 at 09:15 Amino Acids/ Glycerin/ Electrolytes 1,000 ml @ 80 mls/hr [id number] IV Last administered on 03/27/17 06:09; Start 03/22/17 at 11:45 Heparin Sodium (Porcine) (Heparin Sq) 5,000 unit Q8HRS SQ Last administered on 03/25/17 06:07; Start 03/22/17 at 14:00; Stop 03/25/17 at 08:45; Status DC Loperamide HCl (Imodium) 2 mg PRN Q15MIN PRN PO DIARRHEA; Start 03/23/17 at 08 :00 Amoxicillin/ Clavulanate Potassium (Augmentin 500/ 125mg) 1 tab BID PO Last administered on 03/25/17 08:31; Start 03/23/17 at 10:30; Stop 03/25/17 at 14 :03; Status DC Promethazine HCl (Phenergan) 25 mg PRN Q6HRS PRN [place] NAUSEA/VOMITING; Start 05/28 at 15:15 Furosemide (Lasix) 80 mg 1X ONCE IVP Last administered on 03/24/17 12:13; Start 03/24/17 at 11:30; Stop 03/24/17 at 11:31; Status DC Iohexol (Omnipaque 240 Mg/ml) 50 ml 1X ONCE PO Last administered on 09:30; Start 03/25/17 at 09:30; Stop 03/25/17 at 09:31; Status DC Iohexol (Omnipaque 240 Mg/ml) 50 ml 1X ONCE PO Last administered on 12:32; Start 03/25/17 at 12:30; Stop 03/25/17 at 12:31; Status DC Lorazepam (Ativan) 1 mg 1X ONCE IV Last administered on 03/25/17 13:40; Start 03/25/17 at 14:00; Stop 03/25/17 at 14:01; Status DC Piperacillin Sod/ Tazobactam Sod 2.25 gm/Sodium Chloride 50 ml @ 100 mls/hr Q8HRS IV Last administered on 03/27/17 13:58; Start 03/25/17 at 15:00 Levetiracetam 500 mg/Sodium Chloride 100 ml @ 400 mls/hr Q12HR IV ; Start at 15:00; Stop 03/25/17 at 15:00; Status DC Lorazepam (Ativan) 2 mg PRN Q1HR PRN IV SEIZURE Last administered on 14:30; Start 03/25/17 at 14:15; Stop 03/25/17 at 15:27; Status DC Levetiracetam 750 mg/Sodium Chloride 107.5 ml @ 400 mls/hr Q12HR IV Last administered on 03/27/17 11:29; Start 03/25/17 at 15:00 Digoxin (Lanoxin) 500 mcg 1X ONCE IV Last administered on 03/25/17 14:34; Start 03/25/17 at 14:30; Stop 03/25/17 at 14:31; Status DC Norepinephrine Bitartrate 250 ml @ 0 mls/hr CONT PRN IV SEE I/O RECORD Last administered on 03/25/17 21:53; Start 03/25/17 at 14:30 Sodium Chloride 1,000 ml @ 1,000 mls/hr 1X ONCE IV Last administered on 03/25 15:38; Start 03/25/17 at 15:00; Stop 03/25/17 at 15:59; Status DC Lorazepam (Ativan) 2 mg PRN Q4HRS PRN IV SEIZURE Last administered on 15:55; Start 03/25/17 at 15:30 Propofol 100 ml @ As Directed STK-MED ONCE IV ; Start 03/25/17 at 15:28; Stop 03/25/17 at 15:29; Status DC Propofol 100 ml @ 0 mls/hr CONT PRN IV SEE I/O RECORD Last administered on 11:00; Start 03/25/17 at 15:45 Sodium Bicarbonate 150 meq 1X ONCE IV Last administered on 03/25/17 15:43; Start 03/25/17 at 16:00; Stop 03/25/17 at 16:01; Status DC Adenosine (Adenocard) 6 mg 1X ONCE IV Last administered on 03/25/17 15:42; Start 03/25/17 at 16:15; Stop 03/25/17 at 16:16; Status DC Adenosine (Adenocard) 12 mg 1X ONCE IV Last administered on 03/25/17 15:48; Start 03/25/17 at 16:00; Stop 03/25/17 at 16:01; Status DC Midazolam HCl (Versed) 5 mg 1X ONCE IV Last administered on 03/25/17 15:48; Start 03/25/17 at 16:00; Stop 03/25/17 at 16:01; Status DC Pantoprazole Sodium (Protonix Vial) 40 mg BID IVP Last administered on 11:29; Start 03/25/17 at 21:00 Sodium Chloride 1,000 ml @ 1,000 mls/hr Q1H PRN IV hypotension; Start at 16:30; Stop 03/25/17 at 22:29; Status DC Sodium Chloride (Normal Saline Flush) 10 ml 1X PRN PRN IV AP catheter pack; Start 03/25/17 at 16:30; Stop 03/26/17 at 08:54; Status DC Sodium Chloride (Normal Saline Flush) 10 ml 1X PRN PRN IV GLASS SANDER catheter pack; Start 03/25/17 at 16:30; Stop 03/26/17 at 08:54; Status DC Sodium Chloride 1,000 ml @ 400 mls/hr Q2H30M PRN IV PATENCY; Start 03/25/17 at 16:30; Stop 03/26/17 at 04:29; Status DC Info (PHARMACY MONITORING -- do not chart) 1 each PRN DAILY PRN MC SEE COMMENTS ; Start 03/25/17 at 16:30 Info (PHARMACY MONITORING -- do not chart) 1 each PRN DAILY PRN MC SEE COMMENTS ; Start 03/25/17 at 16:30; Status UNV Acetaminophen (Tylenol) 650 mg PRN Q6HRS PRN PEG MILD PAIN / TEMP Last administered on 03/25/17t 18:44; Start 03/25/17 at 18:30 Fentanyl Citrate 30 ml @ 0 mls/hr CONT PRN PRN IV PROTOCOL; Start 03/25/17 at 19:15 Sodium Chloride 1,000 ml @ 1,000 mls/hr Q1H PRN IV hypotension; Start at 08:46; Stop 03/26/17 at 14:45; Status DC Sodium Chloride (Normal Saline Flush) 10 ml 1X PRN PRN IV AP catheter pack; Start 03/26/17 at 09:00; Stop 03/27/17 at 08:59; Status DC Sodium Chloride (Normal Saline Flush) 10 ml 1X PRN PRN IV GLASS SANDER catheter pack; Start 03/26/17 at 09:00; Stop 03/27/17 at 08:59; Status DC Sodium Chloride 1,000 ml @ 400 mls/hr Q2H30M PRN IV PATENCY; Start 03/26/17 at 08:46; Stop 03/26/17 at 20:45; Status DC Info (PHARMACY MONITORING -- do not chart) 1 each PRN DAILY PRN MC SEE COMMENTS ; Start 03/26/17 at 09:00; Status UNV Info (PHARMACY MONITORING -- do not chart) 1 each PRN DAILY PRN MC SEE COMMENTS ; Start 03/26/17 at 09:00; Status UNV Levothyroxine Sodium 15 mcg/ Sodium Chloride 5 ml @ 100 mls/hr DAILY IVP Last administered on 03/27/17 11:28; Start 03/26/17 at 14:00 Chlorhexidine Gluconate (Peridex) 15 ml BID MM Last administered on 03/27/17 07:45; Start 03/26/17 at 21:00 Heparin Sodium (Porcine) (Heparin Sq) 5,000 unit BID SQ Last administered on 21:17; Start 03/26/17 at 21:00 Heparin Sodium (Porcine) (Heparin Sodium) 10,000 unit STK-MED ONCE .ROUTE ; Start 03/27/17 at 08:15; Stop 03/27/17 at 08:16; Status DC Lidocaine/ Epinephrine (Xylocaine 1%-Epi 1:100,000) 20 ml STK-MED ONCE .ROUTE ; Start 03/27/17 at 08:15; Stop 03/27/17 at 08:16; Status DC Heparin Sodium/ Sodium Chloride 500 ml @ As Directed STK-MED ONCE .ROUTE ; Start 03/27/17 at 08:15; Stop 03/27/17 at 08:16; Status DC Heparin Sodium/ Sodium Chloride 1,000 unit 1X ONCE IART Last administered on 03/27/17 10:53; Start 03/27/17 at 10:30; Stop 03/27/17 at 10:45; Status DC Lidocaine/ Epinephrine (Xylocaine 1%-Epi 1:100,000) 20 ml 1X ONCE INJ Last administered on 03/27/17 10:53; Start 03/27/17 at 10:30; Stop 03/27/17 at 10 :45; Status DC Heparin Sodium (Porcine) (Heparin Sodium) 3,800 unit 1X ONCE INT CAT Last administered on 03/27/17 10:54; Start 03/27/17 at 10:30; Stop 03/27/17 at 10 :45; Status DC Darbepoetin Jean (Aranesp) 60 mcg [id number] SQ ; Start 03/27/17 at 21:00 Info 1 each PRN DAILY PRN MC SEE COMMENTS; Start 03/27/17 at 13:45 Active Scripts Active Reported Multivitamins (Multivitamin) 1 Each Tablet 1 Tab PO DAILY Omeprazole 20 Mg Capsule. 1 Cap PO DAILY Vitals/I & O Vital Sign - Last 24 Hours 03/26/17 03/26/17 03/26/17 03/26/17 15:00 15:00 15:58 16:00 Temp 99.2 99.2 Pulse 93 96 93 Resp 24 16 B/P (MAP) 110/66 (81) 110/66 (81) 106/66 (79) Pulse Ox 99 100 100 O2 Delivery Ventilator Ventilator Ventilator 03/26/17 03/26/17 03/26/17 03/26/17 16:00 16:00 16:57 17:00 Pulse 93 95 B/P (MAP) 106/66 (79) 111/70 (84) Pulse Ox 100 O2 Delivery Mechanical Ventilator Ventilator 03/26/17 03/26/17 03/26/17 03/26/17 17:00 18:00 18:00 19:00 Pulse 95 90 90 94 Resp 16 16 16 B/P (MAP) 111/70 (84) 109/66 (80) 109/66 (80) 112/70 (84) Pulse Ox 100 100 100 O2 Delivery Ventilator Ventilator Ventilator 03/26/17 03/26/17 03/26/17 03/26/17 20:00 20:00 20:00 20:20 Temp 99.0 99.0 Pulse 84 Resp 16 B/P (MAP) 107/61 (76) Pulse Ox 100 100 O2 Delivery Ventilator Mechanical Ventilator Ventilator 03/26/17 03/26/17 03/26/17 03/26/17 21:00 22:00 22:06 23:00 Pulse 88 84 81 Resp 16 16 16 B/P (MAP) 108/60 (76) 102/57 (72) 109/61 (77) Pulse Ox 100 99 100 100 O2 Delivery Ventilator Ventilator Ventilator Ventilator 03/27/17 03/27/17 03/27/17 03/27/17 00:00 00:00 00:00 00:12 Temp 97.9 97.9 Pulse 83 Resp 16 B/P (MAP) 108/61 (77) Pulse Ox 100 100 O2 Delivery Ventilator Mechanical Ventilator Ventilator 03/27/17 03/27/17 03/27/17 03/27/17 01:00 02:00 02:45 03:00 Pulse 74 73 83 Resp 16 16 16 B/P (MAP) 111/63 (79) 111/64 (80) 122/69 (86) Pulse Ox 100 100 100 100 O2 Delivery Ventilator Ventilator Ventilator Ventilator 03/27/17 03/27/17 03/27/17 03/27/17 04:00 04:00 04:00 05:00 Temp 98.3 98.3 Pulse 84 86 Resp 16 16 B/P (MAP) 120/68 (85) 120/68 (85) Pulse Ox 100 100 O2 Delivery Mechanical Ventilator Ventilator Ventilator 03/27/17 03/27/17 03/27/17 03/27/17 05:05 06:00 07:00 07:48 Temp 98.8 98.8 Pulse 84 78 Resp 16 15 B/P (MAP) 120/67 (84) 116/62 (80) Pulse Ox 100 100 100 100 O2 Delivery Ventilator Ventilator Ventilator Ventilator 03/27/17 03/27/17 03/27/17 03/27/17 08:00 08:00 09:00 09:50 Pulse 82 76 Resp 15 15 B/P (MAP) 125/71 (89) 122/67 (85) Pulse Ox 100 99 100 O2 Delivery Ventilator Mechanical Ventilator Ventilator Ventilator 03/27/17 03/27/17 03/27/17 03/27/17 10:00 11:00 11:21 12:00 Pulse 74 90 Resp 15 21 B/P (MAP) 120/64 (82) 130/66 (87) Pulse Ox 100 97 100 O2 Delivery Ventilator Ventilator Ventilator Mechanical Ventilator 03/27/17 03/27/17 03/27/17 03/27/17 12:00 12:20 13:00 13:05 Temp 98.6 98.6 Pulse 84 98 Resp 16 20 B/P (MAP) 128/70 (89) 140/80 (100) Pulse Ox 98 94 O2 Delivery Ventilator Ventilator Ventilator Nasal Cannula O2 Flow Rate 3.0 Intake and Output 03/27/17 03/27/17 03/28/17 15:00 23:00 07:00 Output Total 775 ml Balance -775 ml DANN ROQUE MD Mar 27, 2017 14:07
[2017-03-27] MEDS: TPN PER PHARMACY MC PRN (14:18)
[2017-03-27] MEDS: MORPHINE SULFATE 2 MG/ML DISP.SYRIN. IV PRN ×2 (15:31→15:43)
[2017-03-27 16:19] LABS: FIO2 ABG 40
[2017-03-27 19:13] LABS: HEP B SURFACE ABDY Non Reactive (.)
[2017-03-27] MEDS ORDERED: 0.9 % SODIUM CHLORIDE 10 ML DISP.SYRIN. IV PRN ×2 (19:30)
[2017-03-27] MEDS ORDERED: DIALYSIS PATIENT. MC PRN ×2 (19:30)
[2017-03-27] MEDS ORDERED: ALBUMIN HUMAN 25% 200 ML IV PRN (19:30)
[2017-03-27] MEDS ORDERED: DARBEPOETIN ALFA 60 MCG/0.3 ML DISP.SYRIN. SQ SCH (21:00)
[2017-03-27] MEDS ORDERED: TOTAL PARENTERAL NUTRITION 1,424.9987 ML, AMINO ACIDS 10 % 60 GM, DEXTROSE 70 % IN WATE... IV SCH ×10 (22:00)
[2017-03-28] VITALS (16 sets, daily range): BP systolic 99–126; BP diastolic 65–89
[2017-03-28 05:21] LABS: BASO # 0.1 x10^3/uL (0.0-0.2); BASO % 1 % (0-3); EOS % 2 % (0-3); HEMATOCRIT 29.9 % (36.0-47.0); HEMOGLOBIN 10.1 g/dL (12.0-15.5); LYMPH % 17 % (24-48); MEAN CORPUSCULAR HEMOGLOBIN 30 pg (25-35); MEAN CORPUSCULAR HGB CONC 34 g/dL (31-37); MEAN CORPUSCULAR VOLUME 90 fL (79-100); MONO % 6 % (0-9); NEUT % 74 % (31-73); PLATELET COUNT 301 x10^3/uL (140-400); RED BLOOD COUNT 3.34 x10^6/uL (3.50-5.40); RED CELL DISTRIBUTION WIDTH 15.6 % (11.5-14.5); WHITE BLOOD COUNT 11.7 x10^3/uL (4.0-11.0)
[2017-03-28] MEDS: PIPERACILLIN/TAZOBACTAM 2.25 GM in IV NORMAL SALINE 50ML 50 ML IV SCH ×3 (05:39→22:06)
[2017-03-28 05:47] LABS: CALCIUM 8.9 mg/dL (8.5-10.1); CREATININE 2.9 mg/dL (0.6-1.0); GFR 19.3; POTASSIUM 3.7 mmol/L (3.5-5.1)
[2017-03-28 05:52] LABS: MAGNESIUM 1.9 mg/dL (1.8-2.4); PHOSPHORUS 3.7 mg/dL (2.6-4.7)
--- NOTE | 2017-03-28 07:19 | PDOC ---
Infectious Disease Note Subjective Subjective Doing ok ROS ROS GEN: Denies fevers, chills, sweats HEENT: Has dry throat CV: Denies chest pain RESP: Denies shortness of air, cough GI: Denies n/v/d MSK: Denies weakness, joint pain/swelling Vital Sign Vital Signs Vital Signs Date Time Temp Pulse Resp B/P (MAP) Pulse Ox O2 Delivery O2 Flow Rate FiO2 03/28/17 06:00 89 17 112/76 (88) 99 Nasal Cannula 2.0 03/28/17 04:00 98.8 98.8 Physical Exam PHYSICAL EXAM GENERAL: NAD, Alert. appears comfortable HEENT: PERRL, OC/OP- dry NECK: Supple, no JVD, no LN LUNGS: Clear HEART: S1S2, no gallop, no murmur ABD: Soft, NT, no organomegaly, no rebound, Obese [place] EXT: trace edema, no cyanosis [employer] SAF[employer]Y: Alert, oriented x 3, no focal neurologic deficit SKIN: No rash IV: RUE PICC. right HD cath Labs Lab Laboratory Tests Test 03/27/17 08:06 03/27/17 08:45 03/27/17 12:45 03/28/17 05:00 Prothrombin Time 15.0 SEC (11.7-14.0) Prothromb Time International Ratio 1.3 (0.8-1.1) Activated Partial Thromboplast Time 27 SEC (24-38) O2 Saturation 98 % (92-99) 94 % (92-99) Arterial Blood pH 7.46 (7.35-7.45) 7.46 (7.35-7.45) Arterial Blood pCO2 at Patient Temp 37 mmHg (35-46) 35 mmHg (35-46) Arterial Blood pO2 at Patient Temp 119 mmHg (85-108) 72 mmHg (85-108) Arterial Blood HCO3 26 mmol/L (21-28) 24 mmol/L (21-28) Arterial Blood Base Excess 2 mmol/L (-3-3) 1 mmol/L (-3-3) FiO2 40 40 White Blood Count 11.7 x10^3/uL (4.0-11.0) Red Blood Count 3.34 x10^6/uL (3.50-5.40) Hemoglobin 10.1 g/dL (12.0-15.5) Hematocrit 29.9 % (36.0-47.0) Mean Corpuscular Volume 90 fL (79-100) Mean Corpuscular Hemoglobin 30 pg (25-35) Mean Corpuscular Hemoglobin Concent 34 g/dL (31-37) Red Cell Distribution Width 15.6 % (11.5-14.5) Platelet Count 301 x10^3/uL (140-400) Neutrophils (%) (Auto) 74 % (31-73) Lymphocytes (%) (Auto) 17 % (24-48) Monocytes (%) (Auto) 6 % (0-9) Eosinophils (%) (Auto) 2 % (0-3) Basophils (%) (Auto) 1 % (0-3) Neutrophils # (Auto) 8.6 x10^3uL (1.8-7.7) Lymphocytes # (Auto) 2.0 x10^3/uL (1.0-4.8) Monocytes # (Auto) 0.7 x10^3/uL (0.0-1.1) Eosinophils # (Auto) 0.2 x10^3/uL (0.0-0.7) Basophils # (Auto) 0.1 x10^3/uL (0.0-0.2) Sodium Level 145 mmol/L (136-145) Potassium Level 3.7 mmol/L (3.5-5.1) Chloride Level 107 mmol/L (98-107) Carbon Dioxide Level 31 mmol/L (21-32) Anion Gap 7 (6-14) Blood Urea Nitrogen 21 mg/dL (7-20) Creatinine 2.9 mg/dL (0.6-1.0) Estimated GFR (Cockcroft-Gault) 19.3 Glucose Level 110 mg/dL (70-99) Glucose (Fingerstick) 111 mg/dL (70-99) Calcium Level 8.9 mg/dL (8.5-10.1) Phosphorus Level 3.7 mg/dL (2.6-4.7) Magnesium Level 1.9 mg/dL (1.8-2.4) Objective Assessment Leukocytosis - mild increase - ? reactive vs concentration Acute encephalopathy - improved Seizure s/p vomiting 03/25. now on Keppra, CK 26, CT neg Acute respiratory failure s/p intubation, 03/25. 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 Clinically looks better today Supportive care GENE FRAZIER MD Mar 28, 2017 07:19
--- NOTE | 2017-03-28 08:24 | PDOC ---
SUBJECTIVE ROS EMILY/ ATN Now extubated and doing well CVS: no Orthopnea, no CP RESP: min subj SOB, no MONTALVO GI: no Nausea, no Vomiting : no Dysuria, no Urgency OBJECTIVE Vital Signs Vital Signs Date Time Temp Pulse Resp B/P (MAP) Pulse Ox O2 Delivery O2 Flow Rate FiO2 03/28/17 07:13 89 21 106/66 (79) 96 Nasal Cannula 2.0 03/28/17 04:00 98.8 98.8 PHYSICAL EXAM Physical Exam GEN: Awake, Oriented x 1-2, In no distress EYES: Vision Unchanged, Conjunctiva Normal EN: No EN Drainage, Mucous Membranes dryish NECK: no JVD, no JVP, Supple, no Thyromegaly - short thick neck CVS: S1S2, no Murmur, No Gallop, No Rub,no Edema RESP: no Rales, no Rhonchi,no Acc. Muscle Use GI: BS + ve, NO Bruit, min Tender, Non Distended : no CVA tenderness, no Suprapubic Tenderness DIAGNOSIS/ASSESSMENT Assessment & Plan ARF/ ATN : (non-oliguric) - presumed to be from CAN: Current fluid and E-lyte status does not necessitate emergent need for dialysis. Will re-evaluate for dialysis in the am and continue on MWF schedule. Sz - CKs, lactate and Phos have remained WNL despite that. hypoAlbuminemia - on TPN for now. ? Oral feeds when cleared to take PO from surgery standpoint ANEMIA: EPO as ordered HTN: Current BP meds as reviewed. See orders for changes. TPN management Discussed Plan of Care with family at bedside Problems: COMMENT/RELEVANT DATA Meds Current Medications Medications (Trade) Dose Ordered Sig/Mildred Start Time Stop Time Status Last Admin Dose Admin Acetaminophen (Tylenol) 650 mg PRN Q6HRS PRN 03/25/17 18:30 03/25/17 18:44 650 MG Acetaminophen/ Hydrocodone Bitart (Lortab 5/325) 2 tab PRN Q4HRS PRN 03/16/17 09:15 03/16/17 13:05 DC 03/16/17 10:16 2 TAB Adenosine (Adenocard) 18 mg STK-MED ONCE 03/26/17 12:00 03/27/17 14:50 DC Al Hydroxide/Mg Hydroxide (Mylanta Plus Xs) 30 ml PRN Q2HR PRN 03/20/17 11:15 Albumin Human 200 ml @ 200 mls/hr 1X PRN PRN 03/27/17 19:30 03/28/17 01:29 DC Albuterol Sulfate (Ventolin Neb Soln) 2.5 mg PRN 1X PRN 03/15/17 15:45 03/16/17 15:44 DC Amino Acids/ Glycerin/ Electrolytes 1,000 ml @ 80 mls/hr [id number] 03/22/17 11:45 03/27/17 21:59 DC 03/27/17 06:09 80 MLS/HR Amoxicillin/ Clavulanate Potassium (Augmentin 500/ 125mg) 1 tab BID 03/23/17 10:30 03/25/17 14:03 DC 03/25/17 08:31 1 TAB Bupivacaine HCl/ Epinephrine Bitart (Marcaine-Epi 0.5%-1:[id number]) 50 ml STK-MED ONCE 03/15/17 13:07 03/15/17 14:08 DC 03/15/17 14:54 8 ML Calcium Carbonate/ Glycine (Tums) 1,000 mg PRN Q4HRS PRN 03/17/17 23:45 03/17/17 23:57 1,000 MG Cefoxitin Sodium 100 ml @ As Directed STK-MED ONCE 03/15/17 14:53 03/15/17 14:54 DC Cefoxitin Sodium 2 gm/Sodium Chloride 100 ml @ 200 mls/hr 1X PREOP 03/15/17 16:00 03/16/17 14:41 DC 03/15/17 14:55 200 MLS/HR Chlorhexidine Gluconate (Peridex) 15 ml BID 03/26/17 21:00 03/27/17 20:57 DC 03/27/17 07:45 15 ML Darbepoetin Jean (Aranesp) 60 mcg [id number] 03/27/17 21:00 03/27/17 22:38 60 MCG Dexamethasone Sodium Phosphate (Decadron) 8 mg 1X PRN PRN 03/15/17 15:45 03/16/17 15:44 DC Digoxin (Lanoxin) 500 mcg 1X ONCE 03/25/17 14:30 03/25/17 14:31 DC 03/25/17 14:34 500 MCG Diphenhydramine HCl (Benadryl) 12.5 mg PRN Q2HR PRN 03/15/17 15:45 03/16/17 15:44 DC Docusate Sodium (Colace) 100 mg BID 03/15/17 21:00 03/17/17 13:04 100 MG Enoxaparin Sodium (Lovenox 40mg Syringe) 40 mg DAILY 03/21/17 09:00 03/22/17 12:42 DC 03/21/17 08:09 40 MG Fentanyl Citrate 30 ml @ 0 mls/hr CONT PRN PRN 03/25/17 19:15 Fentanyl Citrate (Fentanyl 2ml Vial) 50 mcg PRN Q5MIN PRN 03/15/17 15:45 03/16/17 09:05 DC 03/15/17 15:58 50 MCG Fluconazole/ Sodium Chloride 100 ml @ 100 mls/hr Q24H 03/22/17 09:00 03/23/17 10:05 DC 03/22/17 09:30 100 MLS/HR Furosemide (Lasix) 80 mg 1X ONCE 03/24/17 11:30 03/24/17 11:31 DC 03/24/17 12:13 80 MG Heparin Sodium (Porcine) (Heparin Sodium) 3,800 unit 1X ONCE 03/27/17 10:30 03/27/17 10:45 DC 03/27/17 10:54 3,800 UNIT Heparin Sodium (Porcine) (Heparin Sq) 5,000 unit BID 03/26/17 21:00 03/27/17 22:40 5,000 UNIT Heparin Sodium/ Sodium Chloride 1,000 unit 1X ONCE 03/27/17 10:30 03/27/17 10:45 DC 03/27/17 10:53 1,000 UNIT Hydromorphone HCl (Dilaudid) 0.5 mg PRN Q10MIN PRN 03/15/17 16:15 03/16/17 09:05 DC 03/15/17 16:52 0.5 MG Info (Do NOT chart on this entry -- for MONITORING) 1 each PRN DAILY PRN 03/17/17 07:45 03/19/17 07:44 DC Info (PHARMACY MONITORING -- do not chart) 1 each PRN DAILY PRN 03/27/17 19:30 UNV Iohexol (Omnipaque 240 Mg/ml) 50 ml 1X ONCE 03/25/17 12:30 03/25/17 12:31 DC 03/25/17 12:32 50 ML Iohexol (Omnipaque 300 Mg/ml) 75 ml 1X ONCE 03/17/17 08:00 03/17/17 08:01 DC 03/17/17 08:00 75 ML Ketorolac Tromethamine (Toradol) 15 mg PRN Q6HRS PRN 03/15/17 15:30 03/16/17 09:05 DC Levetiracetam 500 mg/Sodium Chloride 100 ml @ 400 mls/hr Q12HR 03/25/17 15:00 03/25/17 15:00 DC Levetiracetam 750 mg/Sodium Chloride 107.5 ml @ 400 mls/hr Q12HR 03/25/17 15:00 03/27/17 22:39 400 MLS/HR Levothyroxine Sodium 15 mcg/ Sodium Chloride 5 ml @ 100 mls/hr DAILY 03/26/17 14:00 03/27/17 11:28 100 MLS/HR Lidocaine HCl (Lidocaine Pf 2% Vial) 5 ml STK-MED ONCE 03/15/17 14:06 03/15/17 14:07 DC Lidocaine HCl (Xylocaine-Mpf 1% Vial) 0.5 ml 1X PRN PRN 03/15/17 15:45 03/16/17 15:44 DC Lidocaine/ Epinephrine (Xylocaine 1%-Epi 1:100,000) 20 ml 1X ONCE 03/27/17 10:30 03/27/17 10:45 DC 03/27/17 10:53 8 ML Loperamide HCl (Imodium) 2 mg PRN Q15MIN PRN 03/23/17 08:00 Lorazepam (Ativan) 2 mg PRN Q4HRS PRN 03/25/17 15:30 03/25/17 15:55 2 MG Meperidine HCl (Demerol) 15 mg 1X PERIOP PRN 03/15/17 15:45 03/16/17 15:44 DC Metoclopramide HCl (Reglan) 10 mg PRN Q6HRS PRN 03/15/17 15:45 03/16/17 15:44 DC 03/15/17 18:49 10 MG Midazolam HCl (Versed) 5 mg STK-MED ONCE 03/25/17 12:00 03/27/17 15:30 DC Morphine Sulfate 2 mg PRN Q2HR PRN 03/27/17 15:30 03/27/17 15:43 2 MG Multivitamins (Thera M Plus) 1 tab DAILY 03/16/17 13:00 03/27/17 11:29 1 TAB Norepinephrine Bitartrate 250 ml @ 0 mls/hr CONT PRN 03/25/17 14:30 03/25/17 21:53 28.125 MLS/HR Ondansetron HCl (Zofran) 8 mg PRN Q8HRS PRN 03/22/17 09:15 03/25/17 06:17 8 MG Oxycodone/ Acetaminophen (Percocet 7.5/ 325) 1 tab PRN Q4HRS PRN 03/16/17 13:15 03/23/17 14:59 1 TAB Pantoprazole Sodium (Protonix Vial) 40 mg BID 03/25/17 21:00 03/27/17 22:38 40 MG Pantoprazole Sodium (Protonix) 40 mg BIDAC 03/20/17 16:30 03/25/17 16:05 DC 03/25/17 08:31 40 MG Piperacillin Sod/ Tazobactam Sod 2.25 gm/Sodium Chloride 50 ml @ 100 mls/hr Q8HRS 03/25/17 15:00 03/28/17 05:39 100 MLS/HR Piperacillin Sod/ Tazobactam Sod 3.375 gm/Sodium Chloride 50 ml @ 100 mls/hr Q12HR 03/21/17 21:00 03/21/17 21:00 DC Potassium Chloride (Klor-Con) 40 meq 1X ONCE 03/18/17 12:45 03/18/17 12:46 DC 03/18/17 14:14 40 MEQ Prochlorperazine Edisylate (Compazine) 10 mg PRN Q8HRS PRN 03/22/17 09:15 03/25/17 10:23 10 MG Prochlorperazine Maleate (Compazine) 5 mg 1X PACU PRN 03/15/17 16:00 03/19/17 19:03 DC Promethazine HCl (Phenergan) 25 mg PRN Q6HRS PRN 03/23/17 15:15 Propofol 100 ml @ 0 mls/hr CONT PRN 03/25/17 15:45 03/27/17 11:00 23.1 MLS/HR Ringer's Solution 1,000 ml @ 125 mls/hr Q8H 03/15/17 15:42 03/15/17 21:41 DC Rocuronium [place] (Zemuron) 100 mg STK-MED ONCE 03/15/17 14:07 03/15/17 14:08 DC Simethicone (Gas-X) 80 mg PRN AFTMEALHC PRN 03/20/17 11:15 03/22/17 08:55 80 MG Sodium Bicarbonate 150 meq STK-MED ONCE 03/26/17 12:00 03/27/17 14:50 DC Sodium Chloride (Normal Saline Flush) 10 ml 1X PRN PRN 03/27/17 19:30 03/28/17 19:29 Sodium Chloride 90 meq/Potassium Chloride 50 meq/ Potassium Phosphate 13.6 mmol/Magnesium Sulfate 10 meq/ Calcium Gluconate 10 meq/ Multivitamins 10 ml/Chromium/ Copper/Manganese/ Seleni/Zn 1 ml/ Total Parenteral Nutrition/Amino Acids/Dextrose/ Fat Emulsion Intravenous 1,512 ml @ 63 mls/hr TPN CONT 03/27/17 22:00 03/28/17 21:59 03/27/17 22:37 63 MLS/HR Succinylcholine Chloride (Anectine) 200 mg STK-MED ONCE 03/15/17 14:07 03/15/17 14:08 DC Vancomycin HCl 1 each 1X ONCE 03/19/17 13:30 03/19/17 13:30 DC Vancomycin HCl (Vanco Per Pharmacy) 1 each PRN DAILY PRN 03/17/17 08:00 03/19/17 11:10 DC 03/18/17 14:24 1 EACH Vancomycin HCl 2 gm/Sodium Chloride 500 ml @ 250 mls/hr Q8H 03/17/17 22:00 03/19/17 11:10 DC 03/19/17 05:41 250 MLS/HR Vecuronium [place] (Norcuron Bolus) 10 mg STK-MED ONCE 03/25/17 12:00 03/27/17 15:30 DC Lab Laboratory Tests Test 03/27/17 08:45 03/27/17 12:45 10/17/17 05:00 O2 Saturation 98 % (92-99) 94 % (92-99) Arterial Blood pH 7.46 (7.35-7.45) 7.46 (7.35-7.45) Arterial Blood pCO2 at Patient Temp 37 mmHg (35-46) 35 mmHg (35-46) Arterial Blood pO2 at Patient Temp 119 mmHg (85-108) 72 mmHg (85-108) Arterial Blood HCO3 26 mmol/L (21-28) 24 mmol/L (21-28) Arterial Blood Base Excess 2 mmol/L (-3-3) 1 mmol/L (-3-3) FiO2 40 40 White Blood Count 11.7 x10^3/uL (4.0-11.0) Red Blood Count 3.34 x10^6/uL (3.50-5.40) Hemoglobin 10.1 g/dL (12.0-15.5) Hematocrit 29.9 % (36.0-47.0) Mean Corpuscular Volume 90 fL (79-100) Mean Corpuscular Hemoglobin 30 pg (25-35) Mean Corpuscular Hemoglobin Concent 34 g/dL (31-37) Red Cell Distribution Width 15.6 % (11.5-14.5) Platelet Count 301 x10^3/uL (140-400) Neutrophils (%) (Auto) 74 % (31-73) Lymphocytes (%) (Auto) 17 % (24-48) Monocytes (%) (Auto) 6 % (0-9) Eosinophils (%) (Auto) 2 % (0-3) Basophils (%) (Auto) 1 % (0-3) Neutrophils # (Auto) 8.6 x10^3uL (1.8-7.7) Lymphocytes # (Auto) 2.0 x10^3/uL (1.0-4.8) Monocytes # (Auto) 0.7 x10^3/uL (0.0-1.1) Eosinophils # (Auto) 0.2 x10^3/uL (0.0-0.7) Basophils # (Auto) 0.1 x10^3/uL (0.0-0.2) Sodium Level 145 mmol/L (136-145) Potassium Level 3.7 mmol/L (3.5-5.1) Chloride Level 107 mmol/L (98-107) Carbon Dioxide Level 31 mmol/L (21-32) Anion Gap 7 (6-14) Blood Urea Nitrogen 21 mg/dL (7-20) Creatinine 2.9 mg/dL (0.6-1.0) Estimated GFR (Cockcroft-Gault) 19.3 Glucose Level 110 mg/dL (70-99) Glucose (Fingerstick) 111 mg/dL (70-99) Calcium Level 8.9 mg/dL (8.5-10.1) Phosphorus Level 3.7 mg/dL (2.6-4.7) Magnesium Level 1.9 mg/dL (1.8-2.4) VETO VILLANUEVA MD Mar 28, 2017 08:24
[2017-03-28] MEDS: DOCUSATE SODIUM 100 MG CAPSULE. PO SCH ×2 (09:00→21:00)
[2017-03-28] MEDS: MULTIVITAMIN with MINERAL TABLET. PO SCH (09:00)
[2017-03-28] MEDS: LEVOTHYROXINE SODIUM IVP SCH (09:11)
[2017-03-28] MEDS: NORMAL SALINE IVP SCH (09:11)
[2017-03-28] MEDS: PANTOPRAZOLE IV PUSH 40 MG VIAL. IVP SCH ×2 (09:11→21:05)
[2017-03-28] MEDS: HEPARIN PF for SUB-Q USE 5,000 UNIT/0.5 ML VIAL. SQ SCH ×2 (09:12→21:17)
--- NOTE | 2017-03-28 09:25 | PDOC ---
PROGRESS NOTES Subjective Subjective patient was successfully extubated yesterday, currently on 2L O2 Nasal Cannula. HD yesterday, and on MWF schedule. Patient denied any chest pain, reported having dry mouth. no other acute events overnight Objective Objective Vital Signs Date Time Temp Pulse Resp B/P (MAP) Pulse Ox O2 Delivery O2 Flow Rate FiO2 03/28/17 07:13 89 21 106/66 (79) 96 Nasal Cannula 2.0 03/28/17 04:00 98.8 98.8 Physical Exam Physical Exam General: no acute distress; currently on 2L O2 via nasal cannula; HEENT: EOMI, dry mucous membranes, no JVD appreciated CV: regular rate and rhythm; no murmurs rubs or gallops on auscultation respiratory: slight increased work of breathing. lungs clear to auscultation, no wheezing abdomen: soft, non-tender, non-distended; +bowel sounds x4 quadrants extremities: warm, well perfused; no lower extremity edema; no clubbing or cyanosis Diagnosis DIAGNOSIS cardiomyopathy emily/atn acute respiratory failure seizure Problems: Assessment Assessment Patient is a 26 year old female who had acute respiratory failure on 03/25 with intubation. She was extubated successfully yesterday and is currently maintaining O2% goals on 2L nasal cannula 1. cardiomyopathy--unclear etiology; Echocardiogram showed EF 30% 2. acute respiratory failure--s/p extubation on 03/27/17 3. EMILY/ATN--currently on MWF HD; catheter placed yesterday 4. hypotension--resolved; currently off pressors 5. seizure--currently on Keppra Plan Plan of Care Will Start Carvedilol and Losartan when possible needs evaluation for COURTNEY appears to be improving clinically Comment Review of Relevant I have reviewed the following items na (where applicable) has been applied. Labs Laboratory Tests Test 03/26/17 14:25 03/27/17 06:10 03/27/17 08:06 03/27/17 08:45 O2 Saturation 98 % (92-99) 98 % (92-99) Arterial Blood pH 7.48 (7.35-7.45) 7.46 (7.35-7.45) Arterial Blood pCO2 at Patient Temp 34 mmHg (35-46) 37 mmHg (35-46) Arterial Blood pO2 at Patient Temp 115 mmHg (85-108) 119 mmHg (85-108) Arterial Blood HCO3 24 mmol/L (21-28) 26 mmol/L (21-28) Arterial Blood Base Excess 1 mmol/L (-3-3) 2 mmol/L (-3-3) FiO2 40 40 White Blood Count 10.1 x10^3/uL (4.0-11.0) Red Blood Count 3.30 x10^6/uL (3.50-5.40) Hemoglobin 9.9 g/dL (12.0-15.5) Hematocrit 29.4 % (36.0-47.0) Mean Corpuscular Volume 89 fL (79-100) Mean Corpuscular Hemoglobin 30 pg (25-35) Mean Corpuscular Hemoglobin Concent 34 g/dL (31-37) Red Cell Distribution Width 15.6 % (11.5-14.5) Platelet Count 284 x10^3/uL (140-400) Neutrophils (%) (Auto) 69 % (31-73) Lymphocytes (%) (Auto) 19 % (24-48) Monocytes (%) (Auto) 7 % (0-9) Eosinophils (%) (Auto) 4 % (0-3) Basophils (%) (Auto) 1 % (0-3) Neutrophils # (Auto) 7.0 x10^3uL (1.8-7.7) Lymphocytes # (Auto) 1.9 x10^3/uL (1.0-4.8) Monocytes # (Auto) 0.7 x10^3/uL (0.0-1.1) Eosinophils # (Auto) 0.4 x10^3/uL (0.0-0.7) Basophils # (Auto) 0.1 x10^3/uL (0.0-0.2) Sodium Level 141 mmol/L (136-145) Potassium Level 3.7 mmol/L (3.5-5.1) Chloride Level 106 mmol/L (98-107) Carbon Dioxide Level 26 mmol/L (21-32) Anion Gap 9 (6-14) Blood Urea Nitrogen 31 mg/dL (7-20) Creatinine 4.4 mg/dL (0.6-1.0) Estimated GFR (Cockcroft-Gault) 11.9 BUN/Creatinine Ratio 7 (6-20) Glucose Level 94 mg/dL (70-99) Calcium Level 8.6 mg/dL (8.5-10.1) Phosphorus Level 3.3 mg/dL (2.6-4.7) Total Bilirubin 0.3 mg/dL (0.2-1.0) Aspartate Amino Transf (AST/SGOT) 27 U/L (15-37) Alanine Aminotransferase (ALT/SGPT) 32 U/L (14-59) Alkaline Phosphatase 54 U/L (46-116) Creatine Kinase 29 U/L (26-192) Total Protein 5.7 g/dL (6.4-8.2) Albumin 1.7 g/dL (3.4-5.0) Albumin/Globulin Ratio 0.4 (1.0-1.7) Prothrombin Time 15.0 SEC (11.7-14.0) Prothromb Time International Ratio 1.3 (0.8-1.1) Activated Partial Thromboplast Time 27 SEC (24-38) Test 03/27/17 12:45 03/28/17 05:00 O2 Saturation 94 % (92-99) Arterial Blood pH 7.46 (7.35-7.45) Arterial Blood pCO2 at Patient Temp 35 mmHg (35-46) Arterial Blood pO2 at Patient Temp 72 mmHg (85-108) Arterial Blood HCO3 24 mmol/L (21-28) Arterial Blood Base Excess 1 mmol/L (-3-3) FiO2 40 White Blood Count 11.7 x10^3/uL (4.0-11.0) Red Blood Count 3.34 x10^6/uL (3.50-5.40) Hemoglobin 10.1 g/dL (12.0-15.5) Hematocrit 29.9 % (36.0-47.0) Mean Corpuscular Volume 90 fL (79-100) Mean Corpuscular Hemoglobin 30 pg (25-35) Mean Corpuscular Hemoglobin Concent 34 g/dL (31-37) Red Cell Distribution Width 15.6 % (11.5-14.5) Platelet Count 301 x10^3/uL (140-400) Neutrophils (%) (Auto) 74 % (31-73) Lymphocytes (%) (Auto) 17 % (24-48) Monocytes (%) (Auto) 6 % (0-9) Eosinophils (%) (Auto) 2 % (0-3) Basophils (%) (Auto) 1 % (0-3) Neutrophils # (Auto) 8.6 x10^3uL (1.8-7.7) Lymphocytes # (Auto) 2.0 x10^3/uL (1.0-4.8) Monocytes # (Auto) 0.7 x10^3/uL (0.0-1.1) Eosinophils # (Auto) 0.2 x10^3/uL (0.0-0.7) Basophils # (Auto) 0.1 x10^3/uL (0.0-0.2) Sodium Level 145 mmol/L (136-145) Potassium Level 3.7 mmol/L (3.5-5.1) Chloride Level 107 mmol/L (98-107) Carbon Dioxide Level 31 mmol/L (21-32) Anion Gap 7 (6-14) Blood Urea Nitrogen 21 mg/dL (7-20) Creatinine 2.9 mg/dL (0.6-1.0) Estimated GFR (Cockcroft-Gault) 19.3 Glucose Level 110 mg/dL (70-99) Glucose (Fingerstick) 111 mg/dL (70-99) Calcium Level 8.9 mg/dL (8.5-10.1) Phosphorus Level 3.7 mg/dL (2.6-4.7) Magnesium Level 1.9 mg/dL (1.8-2.4) Laboratory Tests Test 03/27/17 12:45 03/28/17 05:00 O2 Saturation 94 % (92-99) Arterial Blood pH 7.46 (7.35-7.45) Arterial Blood pCO2 at Patient Temp 35 mmHg (35-46) Arterial Blood pO2 at Patient Temp 72 mmHg (85-108) Arterial Blood HCO3 24 mmol/L (21-28) Arterial Blood Base Excess 1 mmol/L (-3-3) FiO2 40 White Blood Count 11.7 x10^3/uL (4.0-11.0) Red Blood Count 3.34 x10^6/uL (3.50-5.40) Hemoglobin 10.1 g/dL (12.0-15.5) Hematocrit 29.9 % (36.0-47.0) Mean Corpuscular Volume 90 fL (79-100) Mean Corpuscular Hemoglobin 30 pg (25-35) Mean Corpuscular Hemoglobin Concent 34 g/dL (31-37) Red Cell Distribution Width 15.6 % (11.5-14.5) Platelet Count 301 x10^3/uL (140-400) Neutrophils (%) (Auto) 74 % (31-73) Lymphocytes (%) (Auto) 17 % (24-48) Monocytes (%) (Auto) 6 % (0-9) Eosinophils (%) (Auto) 2 % (0-3) Basophils (%) (Auto) 1 % (0-3) Neutrophils # (Auto) 8.6 x10^3uL (1.8-7.7) Lymphocytes # (Auto) 2.0 x10^3/uL (1.0-4.8) Monocytes # (Auto) 0.7 x10^3/uL (0.0-1.1) Eosinophils # (Auto) 0.2 x10^3/uL (0.0-0.7) Basophils # (Auto) 0.1 x10^3/uL (0.0-0.2) Sodium Level 145 mmol/L (136-145) Potassium Level 3.7 mmol/L (3.5-5.1) Chloride Level 107 mmol/L (98-107) Carbon Dioxide Level 31 mmol/L (21-32) Anion Gap 7 (6-14) Blood Urea Nitrogen 21 mg/dL (7-20) Creatinine 2.9 mg/dL (0.6-1.0) Estimated GFR (Cockcroft-Gault) 19.3 Glucose Level 110 mg/dL (70-99) Glucose (Fingerstick) 111 mg/dL (70-99) Calcium Level 8.9 mg/dL (8.5-10.1) Phosphorus Level 3.7 mg/dL (2.6-4.7) Magnesium Level 1.9 mg/dL (1.8-2.4) Microbiology 03/25/17 Blood Culture - Preliminary, Resulted NO GROWTH AFTER 2 DAYS Medications Current Medications Dexamethasone Sodium Phosphate (Decadron) 20 mg STK-MED ONCE .ROUTE ; Start 03/15/17 at 14:06; Stop 03/15/17 at 14:07; Status DC Ondansetron HCl (Zofran) 4 mg STK-MED ONCE .ROUTE ; Start 03/15/17 at 14:06; Stop 03/15/17 at 14:07; Status DC Propofol 20 ml @ As Directed STK-MED ONCE IV ; Start 03/15/17 at 14:06; Stop at 14:07; Status DC Lidocaine HCl (Lidocaine Pf 2% Vial) 5 ml STK-MED ONCE .ROUTE ; Start 03/15/17 at 14:06; Stop 03/15/17 at 14:07; Status DC Midazolam HCl (Versed) 2 mg STK-MED ONCE .ROUTE ; Start 03/15/17 at 14:06; Stop 03/15/17 at 14:07; Status DC Fentanyl Citrate (Fentanyl 2ml Vial) 100 mcg STK-MED ONCE .ROUTE ; Start at 14:06; Stop 03/15/17 at 14:07; Status DC Rocuronium [place] (Zemuron) 100 mg STK-MED ONCE .ROUTE ; Start 03/15/17 at 14: 07; Stop 03/15/17 at 14:08; Status DC Succinylcholine Chloride (Anectine) 200 mg STK-MED ONCE .ROUTE ; Start 03/15/17 at 14:07; Stop 03/15/17 at 14:08; Status DC Bupivacaine HCl/ Epinephrine Bitart (Marcaine-Epi 0.5%-[id number]) 50 ml STK-MED ONCE .ROUTE Last administered on 03/15/17 14:54; Start 03/15/17 at 13:07; Stop 03/15/17 at 14:08; Status DC Cefoxitin Sodium 2 gm/Sodium Chloride 100 ml @ 200 mls/hr 1X PREOP IV Last administered on 03/15/17 14:55; Start 03/15/17 at 16:00; Stop 03/16/17 at 14:41 ; Status DC Sodium Chloride 1,000 ml @ 125 mls/hr 1X ONCE IV Last administered on 14:15; Start 03/15/17 at 14:15; Stop 03/15/17 at 22:14; Status DC Cefoxitin Sodium 100 ml @ As Directed STK-MED ONCE IV ; Start 03/15/17 at 14:53 ; Stop 03/15/17 at 14:54; Status DC Enoxaparin Sodium (Lovenox 40mg Syringe) 40 mg Q24H SQ ; Start 03/15/17 at 15:30 ; Stop 03/16/17 at 14:38; Status DC Sodium Chloride (Normal Saline Flush) 3 ml QSHIFT PRN IV AFTER MEDS AND BLOOD DRAWS; Start 03/15/17 at 15:30 Ringer's Solution 1,000 ml @ 75 mls/hr [id number] IV Last administered on 21:12; Start 03/15/17 at 15:19; Stop 03/27/17 at 12:51; Status DC Acetaminophen/ Hydrocodone Bitart (Lortab 5/325) 1 tab PRN Q4HRS PRN PO MILD PAIN Last administered on 03/16/17 02:56; Start 03/15/17 at 15:30; Stop at 13:05; Status DC Ketorolac Tromethamine (Toradol) 15 mg PRN Q6HRS PRN IV PAIN; Start 03/15/17 at 15:30; Stop 03/16/17 at 09:05; Status DC Morphine Sulfate 2 mg PRN Q1HR PRN IV PAIN Last administered on 03/22/17 09: 36; Start 03/15/17 at 15:30; Stop 03/27/17 at 12:51; Status DC Docusate Sodium (Colace) 100 mg BID PO Last administered on 03/17/17 13:04; Start 03/15/17 at 21:00 Ondansetron HCl (Zofran) 4 mg PRN Q6HRS PRN IV NAUESA, 1ST CHOICE Last administered on 03/22/17 06:34; Start 03/15/17 at 15:30; Stop 03/22/17 at 09: 09; Status DC Piperacillin Sod/ Tazobactam Sod 3.375 gm/Sodium Chloride 50 ml @ 100 mls/hr Q6HRS IV Last administered on 03/21/17 06:20; Start 03/15/17 at 18:00; Stop 03/21/17 at 09:24; Status DC Morphine Sulfate 10 mg STK-MED ONCE .ROUTE ; Start 03/15/17 at 15:32; Stop 03/15 at 15:33; Status DC Ringer's Solution 1,000 ml @ 125 mls/hr Q8H IV Last administered on 03/16/17 00:51; Start 03/15/17 at 15:42; Stop 03/16/17 at 03:41; Status DC Lidocaine HCl (Xylocaine-Mpf 1% Vial) 0.5 ml 1X PRN PRN INJ IV START; Start at 15:45; Stop 03/16/17 at 15:44; Status DC Ringer's Solution 1,000 ml @ 125 mls/hr Q8H IV ; Start 03/15/17 at 15:42; Stop 03/15/17 at 21:41; Status DC Fentanyl Citrate (Fentanyl 2ml Vial) 25 mcg PRN Q5MIN PRN IV Acute Pain; Start 03/15/17 at 15:45; Stop 03/16/17 at 09:05; Status DC Fentanyl Citrate (Fentanyl 2ml Vial) 50 mcg PRN Q5MIN PRN IV Acute Pain Last administered on 03/15/17 15:58; Start 03/15/17 at 15:45; Stop 03/16/17 at 09:05 ; Status DC Morphine Sulfate 2 mg PRN Q10MIN PRN IV Mild Pain; Start 03/15/17 at 15:45; Stop 03/16/17 at 09:05; Status DC Morphine Sulfate 4 mg PRN Q10MIN PRN IV Moderate Pain; Start 03/15/17 at 15:45 ; Stop 03/16/17 at 09:05; Status DC Ondansetron HCl (Zofran) 4 mg PRN Q6HRS PRN IV Nausea, 1st Choice; Start at 15:45; Stop 03/16/17 at 09:05; Status DC Metoclopramide HCl (Reglan) 10 mg PRN Q6HRS PRN IV Nausea/Vomiting, 2nd Choice Last administered on 03/15/17 18:49; Start 03/15/17 at 15:45; Stop 03/16/17 at 15:44; Status DC Diphenhydramine HCl (Benadryl) 12.5 mg PRN Q2HR PRN IV ITCHING; Start 03/15/17 at 15:45; Stop 03/16/17 at 15:44; Status DC Albuterol Sulfate (Ventolin Neb Soln) 2.5 mg PRN 1X PRN NEB Shortness of Breath , Wheezing; Start 03/15/17 at 15:45; Stop 03/16/17 at 15:44; Status DC Dexamethasone Sodium Phosphate (Decadron) 8 mg 1X PRN PRN IV 3RD CHOICE FOR NAUSEA; Start 03/15/17 at 15:45; Stop 03/16/17 at 15:44; Status DC Meperidine HCl (Demerol) 10 mg 1X PERIOP PRN IV SHIVERING; Start 03/15/17 at 15 :45; Stop 03/16/17 at 15:44; Status DC Meperidine HCl (Demerol) 15 mg 1X PERIOP PRN IV SHIVERING; Start 03/15/17 at 15 :45; Stop 03/16/17 at 15:44; Status DC Prochlorperazine Edisylate (Compazine) 10 mg STK-MED ONCE .ROUTE ; Start at 15:48; Stop 03/15/17 at 15:49; Status DC Prochlorperazine Maleate (Compazine) 5 mg 1X PACU PRN PO NAUSEA/VOMITING; Start 03/15/17 at 16:00; Stop 03/19/17 at 19:03; Status DC Hydromorphone HCl (Dilaudid) 0.5 mg PRN Q10MIN PRN IV PAIN Last administered on 03/15/17 16:52; Start 03/15/17 at 16:15; Stop 03/16/17 at 09:05; Status DC Acetaminophen/ Hydrocodone Bitart (Lortab 5/325) 2 tab PRN Q4HRS PRN PO PAIN Last administered on 03/16/17 10:16; Start 03/16/17 at 09:15; Stop 03/16/17 at 13:05; Status DC Multivitamins (Thera M Plus) 1 tab DAILY PO Last administered on 03/27/17 11: 29; Start 03/16/17 at 13:00 Pantoprazole Sodium (Protonix) 40 mg DAILYAC PO Last administered on 03/20/17 08:48; Start 03/16/17 at 13:00; Stop 03/20/17 at 11:14; Status DC Oxycodone/ Acetaminophen (Percocet 7.5/ 325) 1 tab PRN Q4HRS PRN PO PAIN Last administered on 03/23/17 14:59; Start 03/16/17 at 13:15 Morphine Sulfate 4 mg PRN Q2HR PRN IV PAIN Last administered on 03/18/17 14:11 ; Start 03/16/17 at 13:15; Stop 03/27/17 at 12:51; Status DC Enoxaparin Sodium (Lovenox 40mg Syringe) 40 mg Q12HR SQ Last administered on 08:47; Start 03/16/17 at 21:00; Stop 03/20/17 at 16:57; Status DC Iohexol (Omnipaque 300 Mg/ml) 75 ml 1X ONCE IV Last administered on 03/17/17 08:00; Start 03/17/17 at 08:00; Stop 03/17/17 at 08:01; Status DC Iohexol (Omnipaque 240 Mg/ml) 50 ml 1X ONCE PO Last administered on 03/17/17 08:00; Start 03/17/17 at 08:00; Stop 03/17/17 at 08:01; Status DC Info (Do NOT chart on this entry -- for MONITORING) 1 each PRN DAILY PRN MC SEE COMMENTS; Start 03/17/17 at 07:45; Stop 03/19/17 at 07:44; Status DC Sodium Chloride 1,000 ml @ 1,000 mls/hr 1X ONCE IV Last administered on 08:00; Start 03/17/17 at 08:00; Stop 03/17/17 at 08:59; Status DC Vancomycin HCl (Vanco Per Pharmacy) 1 each PRN DAILY PRN MC SEE COMMENTS Last administered on 03/18/17 14:24; Start 03/17/17 at 08:00; Stop 03/19/17 at 11:10 ; Status DC Fluconazole/ Sodium Chloride 200 ml @ 100 mls/hr Q24H IV Last administered on 03/21/17 08:07; Start 03/17/17 at 09:00; Stop 03/21/17 at 09:24; Status DC Vancomycin HCl 2 gm/Sodium Chloride 500 ml @ 250 mls/hr 1X ONCE IV Last administered on 03/17/17 13:08; Start 03/17/17 at 09:00; Stop 03/17/17 at 10:59 ; Status DC Acetaminophen (Tylenol) 650 mg PRN Q6HRS PRN PO FEVER Last administered on 16:34; Start 03/17/17 at 08:15 Vancomycin HCl 2 gm/Sodium Chloride 500 ml @ 250 mls/hr Q8H IV Last administered on 03/19/17 05:41; Start 03/17/17 at 22:00; Stop 03/19/17 at 11:10 ; Status DC Vancomycin HCl 1 each 1X ONCE MC ; Start 03/18/17 at 13:30; Stop 03/18/17 at 13 :31; Status DC Calcium Carbonate/ Glycine (Tums) 1,000 mg PRN Q4HRS PRN PO INDIGESTION Last administered on 03/17/17 23:57; Start 03/17/17 at 23:45 Potassium Chloride (Klor-Con) 40 meq 1X ONCE PO Last administered on 14:14; Start 03/18/17 at 12:45; Stop 03/18/17 at 12:46; Status DC Vancomycin HCl 1 each 1X ONCE MC ; Start 03/19/17 at 13:30; Stop 03/19/17 at 13 :30; Status DC Sodium Chloride 1,000 ml @ 1,000 mls/hr 1X ONCE IV Last administered on 14:28; Start 03/19/17 at 12:15; Stop 03/19/17 at 13:14; Status DC Pantoprazole Sodium (Protonix) 40 mg BIDAC PO Last administered on 03/25/17 08:31; Start 03/20/17 at 16:30; Stop 03/25/17 at 16:05; Status DC Simethicone (Gas-X) 80 mg PRN AFTMEALHC PRN PO GAS / BLOATING Last administered on 03/22/17 08:55; Start 03/20/17 at 11:15 Al Hydroxide/Mg Hydroxide (Mylanta Plus Xs) 30 ml PRN Q2HR PRN PO HEARTBURN / GAS; Start 03/20/17 at 11:15 Enoxaparin Sodium (Lovenox 40mg Syringe) 40 mg DAILY SQ Last administered on 08:09; Start 03/21/17 at 09:00; Stop 03/22/17 at 12:42; Status DC Fluconazole/ Sodium Chloride 100 ml @ 100 mls/hr Q24H IV ; Start 03/22/17 at 09:00; Stop 03/22/17 at 09:00; Status DC Piperacillin Sod/ Tazobactam Sod 3.375 gm/Sodium Chloride 50 ml @ 100 mls/hr Q12HR IV ; Start 03/21/17 at 21:00; Stop 03/21/17 at 21:00; Status DC Fluconazole/ Sodium Chloride 100 ml @ 100 mls/hr Q24H IV Last administered on 03/22/17 09:30; Start 03/22/17 at 09:00; Stop 03/23/17 at 10:05; Status DC Piperacillin Sod/ Tazobactam Sod 2.25 gm/Sodium Chloride 50 ml @ 100 mls/hr Q6HRS IV Last administered on 03/23/17 05:58; Start 03/21/17 at 12:00; Stop 03/23/17 at 10:05; Status DC Ondansetron HCl (Zofran) 8 mg PRN Q8HRS PRN IV NAUESA, 1ST CHOICE Last administered on 03/25/17 06:17; Start 03/22/17 at 09:15 Prochlorperazine Edisylate (Compazine) 10 mg PRN Q8HRS PRN IV NAUSEA/VOMITING - 2nd choice Last administered on 03/25/17 10:23; Start 03/22/17 at 09:15 Amino Acids/ Glycerin/ Electrolytes 1,000 ml @ 80 mls/hr [id number] IV Last administered on 03/27/17 06:09; Start 03/22/17 at 11:45; Stop 03/27/17 at 21 :59; Status DC Heparin Sodium (Porcine) (Heparin Sq) 5,000 unit Q8HRS SQ Last administered on 03/25/17 06:07; Start 03/22/17 at 14:00; Stop 03/25/17 at 08:45; Status DC Loperamide HCl (Imodium) 2 mg PRN Q15MIN PRN PO DIARRHEA; Start 03/23/17 at 08 :00 Amoxicillin/ Clavulanate Potassium (Augmentin 500/ 125mg) 1 tab BID PO Last administered on 03/25/17 08:31; Start 03/23/17 at 10:30; Stop 03/25/17 at 14 :03; Status DC Promethazine HCl (Phenergan) 25 mg PRN Q6HRS PRN CO NAUSEA/VOMITING; Start 05/28 at 15:15 Furosemide (Lasix) 80 mg 1X ONCE IVP Last administered on 03/24/17 12:13; Start 03/24/17 at 11:30; Stop 03/24/17 at 11:31; Status DC Iohexol (Omnipaque 240 Mg/ml) 50 ml 1X ONCE PO Last administered on 09:30; Start 03/25/17 at 09:30; Stop 03/25/17 at 09:31; Status DC Iohexol (Omnipaque 240 Mg/ml) 50 ml 1X ONCE PO Last administered on 12:32; Start 03/25/17 at 12:30; Stop 03/25/17 at 12:31; Status DC Lorazepam (Ativan) 1 mg 1X ONCE IV Last administered on 03/25/17 13:40; Start 03/25/17 at 14:00; Stop 03/25/17 at 14:01; Status DC Piperacillin Sod/ Tazobactam Sod 2.25 gm/Sodium Chloride 50 ml @ 100 mls/hr Q8HRS IV Last administered on 03/28/17 05:39; Start 03/25/17 at 15:00 Levetiracetam 500 mg/Sodium Chloride 100 ml @ 400 mls/hr Q12HR IV ; Start at 15:00; Stop 03/25/17 at 15:00; Status DC Lorazepam (Ativan) 2 mg PRN Q1HR PRN IV SEIZURE Last administered on 14:30; Start 03/25/17 at 14:15; Stop 03/25/17 at 15:27; Status DC Levetiracetam 750 mg/Sodium Chloride 107.5 ml @ 400 mls/hr Q12HR IV Last administered on 03/28/17 09:11; Start 03/25/17 at 15:00 Digoxin (Lanoxin) 500 mcg 1X ONCE IV Last administered on 03/25/17 14:34; Start 03/25/17 at 14:30; Stop 03/25/17 at 14:31; Status DC Norepinephrine Bitartrate 250 ml @ 0 mls/hr CONT PRN IV SEE I/O RECORD Last administered on 03/25/17 21:53; Start 03/25/17 at 14:30 Sodium Chloride 1,000 ml @ 1,000 mls/hr 1X ONCE IV Last administered on 03/25 15:38; Start 03/25/17 at 15:00; Stop 03/25/17 at 15:59; Status DC Lorazepam (Ativan) 2 mg PRN Q4HRS PRN IV SEIZURE Last administered on 15:55; Start 03/25/17 at 15:30 Propofol 100 ml @ As Directed STK-MED ONCE IV ; Start 03/25/17 at 15:28; Stop 03/25/17 at 15:29; Status DC Propofol 100 ml @ 0 mls/hr CONT PRN IV SEE I/O RECORD Last administered on 11:00; Start 03/25/17 at 15:45 Sodium Bicarbonate 150 meq 1X ONCE IV Last administered on 03/25/17 15:43; Start 03/25/17 at 16:00; Stop 03/25/17 at 16:01; Status DC Adenosine (Adenocard) 6 mg 1X ONCE IV Last administered on 03/25/17 15:42; Start 03/25/17 at 16:15; Stop 03/25/17 at 16:16; Status DC Adenosine (Adenocard) 12 mg 1X ONCE IV Last administered on 03/25/17 15:48; Start 03/25/17 at 16:00; Stop 03/25/17 at 16:01; Status DC Midazolam HCl (Versed) 5 mg 1X ONCE IV Last administered on 03/25/17 15:48; Start 03/25/17 at 16:00; Stop 03/25/17 at 16:01; Status DC Pantoprazole Sodium (Protonix Vial) 40 mg BID IVP Last administered on 09:11; Start 03/25/17 at 21:00 Sodium Chloride 1,000 ml @ 1,000 mls/hr Q1H PRN IV hypotension; Start at 16:30; Stop 03/25/17 at 22:29; Status DC Sodium Chloride (Normal Saline Flush) 10 ml 1X PRN PRN IV AP catheter pack; Start 03/25/17 at 16:30; Stop 03/26/17 at 08:54; Status DC Sodium Chloride (Normal Saline Flush) 10 ml 1X PRN PRN IV [employer] catheter pack; Start 03/25/17 at 16:30; Stop 03/26/17 at 08:54; Status DC Sodium Chloride 1,000 ml @ 400 mls/hr Q2H30M PRN IV PATENCY; Start 03/25/17 at 16:30; Stop 03/26/17 at 04:29; Status DC Info (PHARMACY MONITORING -- do not chart) 1 each PRN DAILY PRN MC SEE COMMENTS ; Start 03/25/17 at 16:30 Info (PHARMACY MONITORING -- do not chart) 1 each PRN DAILY PRN MC SEE COMMENTS ; Start 03/25/17 at 16:30; Status UNV Acetaminophen (Tylenol) 650 mg PRN Q6HRS PRN PEG MILD PAIN / TEMP Last administered on 03/25/17t 18:44; Start 03/25/17 at 18:30 Fentanyl Citrate 30 ml @ 0 mls/hr CONT PRN PRN IV PROTOCOL; Start 03/25/17 at 19:15 Sodium Chloride 1,000 ml @ 1,000 mls/hr Q1H PRN IV hypotension; Start at 08:46; Stop 03/26/17 at 14:45; Status DC Sodium Chloride (Normal Saline Flush) 10 ml 1X PRN PRN IV AP catheter pack; Start 03/26/17 at 09:00; Stop 03/27/17 at 08:59; Status DC Sodium Chloride (Normal Saline Flush) 10 ml 1X PRN PRN IV [employer] catheter pack; Start 03/26/17 at 09:00; Stop 03/27/17 at 08:59; Status DC Sodium Chloride 1,000 ml @ 400 mls/hr Q2H30M PRN IV PATENCY; Start 03/26/17 at 08:46; Stop 03/26/17 at 20:45; Status DC Info (PHARMACY MONITORING -- do not chart) 1 each PRN DAILY PRN MC SEE COMMENTS ; Start 03/26/17 at 09:00; Status UNV Info (PHARMACY MONITORING -- do not chart) 1 each PRN DAILY PRN MC SEE COMMENTS ; Start 03/26/17 at 09:00; Status UNV Levothyroxine Sodium 15 mcg/ Sodium Chloride 5 ml @ 100 mls/hr DAILY IVP Last administered on 03/28/17 09:11; Start 03/26/17 at 14:00 Chlorhexidine Gluconate (Peridex) 15 ml BID MM Last administered on 03/27/17 07:45; Start 03/26/17 at 21:00; Stop 03/27/17 at 20:57; Status DC Heparin Sodium (Porcine) (Heparin Sq) 5,000 unit BID SQ Last administered on 09:12; Start 03/26/17 at 21:00 Heparin Sodium (Porcine) (Heparin Sodium) 10,000 unit STK-MED ONCE .ROUTE ; Start 03/27/17 at 08:15; Stop 03/27/17 at 08:16; Status DC Lidocaine/ Epinephrine (Xylocaine 1%-Epi 1:100,000) 20 ml STK-MED ONCE .ROUTE ; Start 03/27/17 at 08:15; Stop 03/27/17 at 08:16; Status DC Heparin Sodium/ Sodium Chloride 500 ml @ As Directed STK-MED ONCE .ROUTE ; Start 03/27/17 at 08:15; Stop 03/27/17 at 08:16; Status DC Heparin Sodium/ Sodium Chloride 1,000 unit 1X ONCE IART Last administered on 03/27/17 10:53; Start 03/27/17 at 10:30; Stop 03/27/17 at 10:45; Status DC Lidocaine/ Epinephrine (Xylocaine 1%-Epi 1:100,000) 20 ml 1X ONCE INJ Last administered on 03/27/17 10:53; Start 03/27/17 at 10:30; Stop 03/27/17 at 10 :45; Status DC Heparin Sodium (Porcine) (Heparin Sodium) 3,800 unit 1X ONCE INT CAT Last administered on 03/27/17 10:54; Start 03/27/17 at 10:30; Stop 03/27/17 at 10 :45; Status DC Darbepoetin Jean (Aranesp) 60 mcg [id number] SQ Last administered on 03/27/17 22:38; Start 03/27/17 at 21:00 Info 1 each PRN DAILY PRN MC SEE COMMENTS Last administered on 03/27/17 14:18 ; Start 03/27/17 at 13:45 Sodium Chloride 90 meq/Potassium Chloride 50 meq/ Potassium Phosphate 13.6 mmol/ Magnesium Sulfate 10 meq/ Calcium Gluconate 10 meq/ Multivitamins 10 ml/Chromium / Copper/Manganese/ Seleni/Zn 1 ml/ Total Parenteral Nutrition/Amino Acids/ Dextrose/ Fat Emulsion Intravenous 1,512 ml @ 63 mls/hr TPN CONT IV Last administered on 03/27/17t 22:37; Start 03/27/17 at 22:00; Stop 03/28/17 at 21 :59 Adenosine (Adenocard) 18 mg STK-MED ONCE IV ; Start 03/26/17 at 12:00; Stop at 14:50; Status DC Midazolam HCl (Versed) 5 mg STK-MED ONCE .ROUTE ; Start 03/26/17 at 12:00; Stop 03/27/17 at 14:50; Status DC Sodium Bicarbonate 150 meq STK-MED ONCE .ROUTE ; Start 03/26/17 at 12:00; Stop 03/27/17 at 14:50; Status DC Morphine Sulfate 2 mg PRN Q2HR PRN IV PAIN Last administered on 03/27/17t 15: 43; Start 03/27/17 at 15:30 Midazolam HCl (Versed) 5 mg STK-MED ONCE .ROUTE ; Start 03/25/17 at 12:00; Stop 03/27/17 at 15:30; Status DC Vecuronium [place] (Norcuron Bolus) 10 mg STK-MED ONCE IV ; Start 03/25/17 at 12:00; Stop 03/27/17 at 15:30; Status DC Albumin Human 200 ml @ 200 mls/hr 1X PRN PRN IV Hypotension; Start 03/27/17 at 19:30; Stop 03/28/17 at 01:29; Status DC Sodium Chloride (Normal Saline Flush) 10 ml 1X PRN PRN IV AP catheter pack; Start 03/27/17 at 19:30; Stop 03/28/17 at 19:29 Sodium Chloride (Normal Saline Flush) 10 ml 1X PRN PRN IV [employer] catheter pack; Start 03/27/17 at 19:30; Stop 03/28/17 at 19:29 Info (PHARMACY MONITORING -- do not chart) 1 each PRN DAILY PRN MC SEE COMMENTS ; Start 03/27/17 at 19:30; Status UNV Info (PHARMACY MONITORING -- do not chart) 1 each PRN DAILY PRN MC SEE COMMENTS ; Start 03/27/17 at 19:30; Status UNV Active Scripts Active Reported Multivitamins (Multivitamin) 1 Each Tablet 1 Tab PO DAILY Omeprazole 20 Mg Capsule.dr 1 Cap PO DAILY Vitals/I & O Vital Sign - Last 24 Hours 03/27/17 03/27/17 03/27/17 03/27/17 09:50 10:00 11:00 11:21 Pulse 74 90 Resp 15 21 B/P (MAP) 120/64 (82) 130/66 (87) Pulse Ox 100 100 97 100 O2 Delivery Ventilator Ventilator Ventilator Ventilator 03/27/17 03/27/17 03/27/17 03/27/17 12:00 12:00 12:20 13:00 Temp 98.6 98.6 Pulse 84 98 Resp 16 20 B/P (MAP) 128/70 (89) 140/80 (100) Pulse Ox 98 94 O2 Delivery Mechanical Ventilator Ventilator Ventilator Nasal Cannula O2 Flow Rate 1.0 03/27/17 03/27/17 03/27/17 03/27/17 13:05 14:00 15:10 15:31 Pulse 96 91 Resp 15 18 21 B/P (MAP) 132/74 (93) 136/71 (92) Pulse Ox 94 97 99 O2 Delivery Nasal Cannula Nasal Cannula Nasal Cannula Nasal Cannula O2 Flow Rate 3.0 1.0 1.0 1.0 03/27/17 03/27/17 03/27/17 03/27/17 15:43 16:00 16:00 16:00 Temp 98.4 98.4 Pulse 92 Resp 14 20 14 B/P (MAP) 111/65 (80) Pulse Ox 99 97 O2 Delivery Nasal Cannula Nasal Cannula Nasal Cannula Nasal Cannula O2 Flow Rate 2.0 1.0 1.0 1.0 03/27/17 03/27/17 03/27/17 03/27/17 17:00 18:00 19:00 20:00 Pulse 90 96 86 Resp 20 25 22 B/P (MAP) 108/77 (87) 117/82 (94) 113/75 (88) Pulse Ox 98 98 98 O2 Delivery Nasal Cannula Nasal Cannula Nasal Cannula Nasal Cannula O2 Flow Rate 1.0 1.0 1.0 2.0 03/27/17 03/27/17 03/27/17 03/28/17 20:00 22:00 23:00 00:00 Temp 98.5 98.5 Pulse 88 98 97 Resp 23 24 26 B/P (MAP) 123/84 (97) 110/76 (87) 100/81 (87) Pulse Ox 99 98 98 O2 Delivery Nasal Cannula Nasal Cannula Nasal Cannula Nasal Cannula O2 Flow Rate 1.0 2.0 2.0 2.0 03/28/17 03/28/17 03/28/17 03/28/17 00:00 01:00 02:00 03:00 Pulse 99 102 101 93 Resp 32 20 20 20 B/P (MAP) 108/81 (90) 124/71 (88) 107/74 (85) 103/75 (84) Pulse Ox 98 98 98 99 O2 Delivery Nasal Cannula Nasal Cannula Nasal Cannula Nasal Cannula O2 Flow Rate 2.0 2.0 2.0 2.0 03/28/17 03/28/17 03/28/17 03/28/17 04:00 04:00 05:00 06:00 Temp 98.8 98.8 Pulse 98 94 89 Resp 20 17 B/P (MAP) 114/80 (91) 99/65 (76) 112/76 (88) Pulse Ox 94 99 99 O2 Delivery Nasal Cannula Room Air Room Air Nasal Cannula O2 Flow Rate 2.0 2.0 2.0 03/28/17 07:13 Pulse 89 Resp 21 B/P (MAP) 106/66 (79) Pulse Ox 96 O2 Delivery Nasal Cannula O2 Flow Rate 2.0 DANN ROQUE MD Mar 28, 2017 09:25
--- NOTE | 2017-03-28 09:50 | PDOC ---
PROGRESS NOTES Assessment Seizures, new onset, provoked. Metabolic encephalopathy. Acute respiratory failure. Acute renal failure. Leukocytosis. Acute appendicitis s/p appendectomy. Hypoalbuminemia. DM. Obesity. Plan Awaiting brain MRI Ativan 2 mg IV PRN seizure. Keppra 750 mg IV q12h. Subjective No complaints Objective Vital Signs Date Time Temp Pulse Resp B/P (MAP) Pulse Ox O2 Delivery O2 Flow Rate FiO2 03/28/17 09:00 100 26 117/73 (88) 96 Nasal Cannula 2.0 03/28/17 08:00 99.0 99.0 Intake and Output 03/29/17 07:00 Output Total 350 ml Balance -350 ml Output Urine Total 350 ml PHYSICAL EXAM Alert, knows that she is in the hospital, month, year PERRL. EOMI. CN: no focal findings. Muscle tone: normal. Muscle strength: 3-4/5 strength DTR: 0-1+ Plantar reflex: flexor Gait: not examined in bed. Sensory exam: no abnormal findings Cerebellar: no findings out of proportion to weakness Review of Relevant I have reviewed the following items na (where applicable) has been applied. Labs Laboratory Tests Test 03/26/17 14:25 03/27/17 06:10 03/27/17 08:06 03/27/17 08:45 O2 Saturation 98 % (92-99) 98 % (92-99) Arterial Blood pH 7.48 (7.35-7.45) 7.46 (7.35-7.45) Arterial Blood pCO2 at Patient Temp 34 mmHg (35-46) 37 mmHg (35-46) Arterial Blood pO2 at Patient Temp 115 mmHg (85-108) 119 mmHg (85-108) Arterial Blood HCO3 24 mmol/L (21-28) 26 mmol/L (21-28) Arterial Blood Base Excess 1 mmol/L (-3-3) 2 mmol/L (-3-3) FiO2 40 40 White Blood Count 10.1 x10^3/uL (4.0-11.0) Red Blood Count 3.30 x10^6/uL (3.50-5.40) Hemoglobin 9.9 g/dL (12.0-15.5) Hematocrit 29.4 % (36.0-47.0) Mean Corpuscular Volume 89 fL (79-100) Mean Corpuscular Hemoglobin 30 pg (25-35) Mean Corpuscular Hemoglobin Concent 34 g/dL (31-37) Red Cell Distribution Width 15.6 % (11.5-14.5) Platelet Count 284 x10^3/uL (140-400) Neutrophils (%) (Auto) 69 % (31-73) Lymphocytes (%) (Auto) 19 % (24-48) Monocytes (%) (Auto) 7 % (0-9) Eosinophils (%) (Auto) 4 % (0-3) Basophils (%) (Auto) 1 % (0-3) Neutrophils # (Auto) 7.0 x10^3uL (1.8-7.7) Lymphocytes # (Auto) 1.9 x10^3/uL (1.0-4.8) Monocytes # (Auto) 0.7 x10^3/uL (0.0-1.1) Eosinophils # (Auto) 0.4 x10^3/uL (0.0-0.7) Basophils # (Auto) 0.1 x10^3/uL (0.0-0.2) Sodium Level 141 mmol/L (136-145) Potassium Level 3.7 mmol/L (3.5-5.1) Chloride Level 106 mmol/L (98-107) Carbon Dioxide Level 26 mmol/L (21-32) Anion Gap 9 (6-14) Blood Urea Nitrogen 31 mg/dL (7-20) Creatinine 4.4 mg/dL (0.6-1.0) Estimated GFR (Cockcroft-Gault) 11.9 BUN/Creatinine Ratio 7 (6-20) Glucose Level 94 mg/dL (70-99) Calcium Level 8.6 mg/dL (8.5-10.1) Phosphorus Level 3.3 mg/dL (2.6-4.7) Total Bilirubin 0.3 mg/dL (0.2-1.0) Aspartate Amino Transf (AST/SGOT) 27 U/L (15-37) Alanine Aminotransferase (ALT/SGPT) 32 U/L (14-59) Alkaline Phosphatase 54 U/L (46-116) Creatine Kinase 29 U/L (26-192) Total Protein 5.7 g/dL (6.4-8.2) Albumin 1.7 g/dL (3.4-5.0) Albumin/Globulin Ratio 0.4 (1.0-1.7) Prothrombin Time 15.0 SEC (11.7-14.0) Prothromb Time International Ratio 1.3 (0.8-1.1) Activated Partial Thromboplast Time 27 SEC (24-38) Test 03/27/17 12:45 03/28/17 05:00 O2 Saturation 94 % (92-99) Arterial Blood pH 7.46 (7.35-7.45) Arterial Blood pCO2 at Patient Temp 35 mmHg (35-46) Arterial Blood pO2 at Patient Temp 72 mmHg (85-108) Arterial Blood HCO3 24 mmol/L (21-28) Arterial Blood Base Excess 1 mmol/L (-3-3) FiO2 40 White Blood Count 11.7 x10^3/uL (4.0-11.0) Red Blood Count 3.34 x10^6/uL (3.50-5.40) Hemoglobin 10.1 g/dL (12.0-15.5) Hematocrit 29.9 % (36.0-47.0) Mean Corpuscular Volume 90 fL (79-100) Mean Corpuscular Hemoglobin 30 pg (25-35) Mean Corpuscular Hemoglobin Concent 34 g/dL (31-37) Red Cell Distribution Width 15.6 % (11.5-14.5) Platelet Count 301 x10^3/uL (140-400) Neutrophils (%) (Auto) 74 % (31-73) Lymphocytes (%) (Auto) 17 % (24-48) Monocytes (%) (Auto) 6 % (0-9) Eosinophils (%) (Auto) 2 % (0-3) Basophils (%) (Auto) 1 % (0-3) Neutrophils # (Auto) 8.6 x10^3uL (1.8-7.7) Lymphocytes # (Auto) 2.0 x10^3/uL (1.0-4.8) Monocytes # (Auto) 0.7 x10^3/uL (0.0-1.1) Eosinophils # (Auto) 0.2 x10^3/uL (0.0-0.7) Basophils # (Auto) 0.1 x10^3/uL (0.0-0.2) Sodium Level 145 mmol/L (136-145) Potassium Level 3.7 mmol/L (3.5-5.1) Chloride Level 107 mmol/L (98-107) Carbon Dioxide Level 31 mmol/L (21-32) Anion Gap 7 (6-14) Blood Urea Nitrogen 21 mg/dL (7-20) Creatinine 2.9 mg/dL (0.6-1.0) Estimated GFR (Cockcroft-Gault) 19.3 Glucose Level 110 mg/dL (70-99) Glucose (Fingerstick) 111 mg/dL (70-99) Calcium Level 8.9 mg/dL (8.5-10.1) Phosphorus Level 3.7 mg/dL (2.6-4.7) Magnesium Level 1.9 mg/dL (1.8-2.4) Laboratory Tests Test 03/27/17 12:45 03/28/17 05:00 O2 Saturation 94 % (92-99) Arterial Blood pH 7.46 (7.35-7.45) Arterial Blood pCO2 at Patient Temp 35 mmHg (35-46) Arterial Blood pO2 at Patient Temp 72 mmHg (85-108) Arterial Blood HCO3 24 mmol/L (21-28) Arterial Blood Base Excess 1 mmol/L (-3-3) FiO2 40 White Blood Count 11.7 x10^3/uL (4.0-11.0) Red Blood Count 3.34 x10^6/uL (3.50-5.40) Hemoglobin 10.1 g/dL (12.0-15.5) Hematocrit 29.9 % (36.0-47.0) Mean Corpuscular Volume 90 fL (79-100) Mean Corpuscular Hemoglobin 30 pg (25-35) Mean Corpuscular Hemoglobin Concent 34 g/dL (31-37) Red Cell Distribution Width 15.6 % (11.5-14.5) Platelet Count 301 x10^3/uL (140-400) Neutrophils (%) (Auto) 74 % (31-73) Lymphocytes (%) (Auto) 17 % (24-48) Monocytes (%) (Auto) 6 % (0-9) Eosinophils (%) (Auto) 2 % (0-3) Basophils (%) (Auto) 1 % (0-3) Neutrophils # (Auto) 8.6 x10^3uL (1.8-7.7) Lymphocytes # (Auto) 2.0 x10^3/uL (1.0-4.8) Monocytes # (Auto) 0.7 x10^3/uL (0.0-1.1) Eosinophils # (Auto) 0.2 x10^3/uL (0.0-0.7) Basophils # (Auto) 0.1 x10^3/uL (0.0-0.2) Sodium Level 145 mmol/L (136-145) Potassium Level 3.7 mmol/L (3.5-5.1) Chloride Level 107 mmol/L (98-107) Carbon Dioxide Level 31 mmol/L (21-32) Anion Gap 7 (6-14) Blood Urea Nitrogen 21 mg/dL (7-20) Creatinine 2.9 mg/dL (0.6-1.0) Estimated GFR (Cockcroft-Gault) 19.3 Glucose Level 110 mg/dL (70-99) Glucose (Fingerstick) 111 mg/dL (70-99) Calcium Level 8.9 mg/dL (8.5-10.1) Phosphorus Level 3.7 mg/dL (2.6-4.7) Magnesium Level 1.9 mg/dL (1.8-2.4) Microbiology 03/25/17 Blood Culture - Preliminary, Resulted NO GROWTH AFTER 2 DAYS Medications Current Medications Dexamethasone Sodium Phosphate (Decadron) 20 mg STK-MED ONCE .ROUTE ; Start 03/15/17 at 14:06; Stop 03/15/17 at 14:07; Status DC Ondansetron HCl (Zofran) 4 mg STK-MED ONCE .ROUTE ; Start 03/15/17 at 14:06; Stop 03/15/17 at 14:07; Status DC Propofol 20 ml @ As Directed STK-MED ONCE IV ; Start 03/15/17 at 14:06; Stop at 14:07; Status DC Lidocaine HCl (Lidocaine Pf 2% Vial) 5 ml STK-MED ONCE .ROUTE ; Start 03/15/17 at 14:06; Stop 03/15/17 at 14:07; Status DC Midazolam HCl (Versed) 2 mg STK-MED ONCE .ROUTE ; Start 03/15/17 at 14:06; Stop 03/15/17 at 14:07; Status DC Fentanyl Citrate (Fentanyl 2ml Vial) 100 mcg STK-MED ONCE .ROUTE ; Start at 14:06; Stop 03/15/17 at 14:07; Status DC Rocuronium [place] (Zemuron) 100 mg STK-MED ONCE .ROUTE ; Start 03/15/17 at 14: 07; Stop 03/15/17 at 14:08; Status DC Succinylcholine Chloride (Anectine) 200 mg STK-MED ONCE .ROUTE ; Start 03/15/17 at 14:07; Stop 03/15/17 at 14:08; Status DC Bupivacaine HCl/ Epinephrine Bitart (Marcaine-Epi 0.5%-[id number]) 50 ml STK-MED ONCE .ROUTE Last administered on 03/15/17 14:54; Start 03/15/17 at 13:07; Stop 03/15/17 at 14:08; Status DC Cefoxitin Sodium 2 gm/Sodium Chloride 100 ml @ 200 mls/hr 1X PREOP IV Last administered on 03/15/17 14:55; Start 03/15/17 at 16:00; Stop 03/16/17 at 14:41 ; Status DC Sodium Chloride 1,000 ml @ 125 mls/hr 1X ONCE IV Last administered on 14:15; Start 03/15/17 at 14:15; Stop 03/15/17 at 22:14; Status DC Cefoxitin Sodium 100 ml @ As Directed STK-MED ONCE IV ; Start 03/15/17 at 14:53 ; Stop 03/15/17 at 14:54; Status DC Enoxaparin Sodium (Lovenox 40mg Syringe) 40 mg Q24H SQ ; Start 03/15/17 at 15:30 ; Stop 03/16/17 at 14:38; Status DC Sodium Chloride (Normal Saline Flush) 3 ml QSHIFT PRN IV AFTER MEDS AND BLOOD DRAWS; Start 03/15/17 at 15:30 Ringer's Solution 1,000 ml @ 75 mls/hr [id number] IV Last administered on 21:12; Start 03/15/17 at 15:19; Stop 03/27/17 at 12:51; Status DC Acetaminophen/ Hydrocodone Bitart (Lortab 5/325) 1 tab PRN Q4HRS PRN PO MILD PAIN Last administered on 03/16/17 02:56; Start 03/15/17 at 15:30; Stop at 13:05; Status DC Ketorolac Tromethamine (Toradol) 15 mg PRN Q6HRS PRN IV PAIN; Start 03/15/17 at 15:30; Stop 03/16/17 at 09:05; Status DC Morphine Sulfate 2 mg PRN Q1HR PRN IV PAIN Last administered on 03/22/17 09: 36; Start 03/15/17 at 15:30; Stop 03/27/17 at 12:51; Status DC Docusate Sodium (Colace) 100 mg BID PO Last administered on 03/17/17 13:04; Start 03/15/17 at 21:00 Ondansetron HCl (Zofran) 4 mg PRN Q6HRS PRN IV NAUESA, 1ST CHOICE Last administered on 03/22/17 06:34; Start 03/15/17 at 15:30; Stop 03/22/17 at 09: 09; Status DC Piperacillin Sod/ Tazobactam Sod 3.375 gm/Sodium Chloride 50 ml @ 100 mls/hr Q6HRS IV Last administered on 03/21/17 06:20; Start 03/15/17 at 18:00; Stop 03/21/17 at 09:24; Status DC Morphine Sulfate 10 mg STK-MED ONCE .ROUTE ; Start 03/15/17 at 15:32; Stop 03/15 at 15:33; Status DC Ringer's Solution 1,000 ml @ 125 mls/hr Q8H IV Last administered on 03/16/17 00:51; Start 03/15/17 at 15:42; Stop 03/16/17 at 03:41; Status DC Lidocaine HCl (Xylocaine-Mpf 1% Vial) 0.5 ml 1X PRN PRN INJ IV START; Start at 15:45; Stop 03/16/17 at 15:44; Status DC Ringer's Solution 1,000 ml @ 125 mls/hr Q8H IV ; Start 03/15/17 at 15:42; Stop 03/15/17 at 21:41; Status DC Fentanyl Citrate (Fentanyl 2ml Vial) 25 mcg PRN Q5MIN PRN IV Acute Pain; Start 03/15/17 at 15:45; Stop 03/16/17 at 09:05; Status DC Fentanyl Citrate (Fentanyl 2ml Vial) 50 mcg PRN Q5MIN PRN IV Acute Pain Last administered on 03/15/17 15:58; Start 03/15/17 at 15:45; Stop 03/16/17 at 09:05 ; Status DC Morphine Sulfate 2 mg PRN Q10MIN PRN IV Mild Pain; Start 03/15/17 at 15:45; Stop 03/16/17 at 09:05; Status DC Morphine Sulfate 4 mg PRN Q10MIN PRN IV Moderate Pain; Start 03/15/17 at 15:45 ; Stop 03/16/17 at 09:05; Status DC Ondansetron HCl (Zofran) 4 mg PRN Q6HRS PRN IV Nausea, 1st Choice; Start at 15:45; Stop 03/16/17 at 09:05; Status DC Metoclopramide HCl (Reglan) 10 mg PRN Q6HRS PRN IV Nausea/Vomiting, 2nd Choice Last administered on 03/15/17 18:49; Start 03/15/17 at 15:45; Stop 03/16/17 at 15:44; Status DC Diphenhydramine HCl (Benadryl) 12.5 mg PRN Q2HR PRN IV ITCHING; Start 03/15/17 at 15:45; Stop 03/16/17 at 15:44; Status DC Albuterol Sulfate (Ventolin Neb Soln) 2.5 mg PRN 1X PRN NEB Shortness of Breath , Wheezing; Start 03/15/17 at 15:45; Stop 03/16/17 at 15:44; Status DC Dexamethasone Sodium Phosphate (Decadron) 8 mg 1X PRN PRN IV 3RD CHOICE FOR NAUSEA; Start 03/15/17 at 15:45; Stop 03/16/17 at 15:44; Status DC Meperidine HCl (Demerol) 10 mg 1X PERIOP PRN IV SHIVERING; Start 03/15/17 at 15 :45; Stop 03/16/17 at 15:44; Status DC Meperidine HCl (Demerol) 15 mg 1X PERIOP PRN IV SHIVERING; Start 03/15/17 at 15 :45; Stop 03/16/17 at 15:44; Status DC Prochlorperazine Edisylate (Compazine) 10 mg STK-MED ONCE .ROUTE ; Start at 15:48; Stop 03/15/17 at 15:49; Status DC Prochlorperazine Maleate (Compazine) 5 mg 1X PACU PRN PO NAUSEA/VOMITING; Start 03/15/17 at 16:00; Stop 03/19/17 at 19:03; Status DC Hydromorphone HCl (Dilaudid) 0.5 mg PRN Q10MIN PRN IV PAIN Last administered on 03/15/17 16:52; Start 03/15/17 at 16:15; Stop 03/16/17 at 09:05; Status DC Acetaminophen/ Hydrocodone Bitart (Lortab 5/325) 2 tab PRN Q4HRS PRN PO PAIN Last administered on 03/16/17 10:16; Start 03/16/17 at 09:15; Stop 03/16/17 at 13:05; Status DC Multivitamins (Thera M Plus) 1 tab DAILY PO Last administered on 03/27/17 11: 29; Start 03/16/17 at 13:00 Pantoprazole Sodium (Protonix) 40 mg DAILYAC PO Last administered on 03/20/17 08:48; Start 03/16/17 at 13:00; Stop 03/20/17 at 11:14; Status DC Oxycodone/ Acetaminophen (Percocet 7.5/ 325) 1 tab PRN Q4HRS PRN PO PAIN Last administered on 03/23/17 14:59; Start 03/16/17 at 13:15 Morphine Sulfate 4 mg PRN Q2HR PRN IV PAIN Last administered on 03/18/17 14:11 ; Start 03/16/17 at 13:15; Stop 03/27/17 at 12:51; Status DC Enoxaparin Sodium (Lovenox 40mg Syringe) 40 mg Q12HR SQ Last administered on 08:47; Start 03/16/17 at 21:00; Stop 03/20/17 at 16:57; Status DC Iohexol (Omnipaque 300 Mg/ml) 75 ml 1X ONCE IV Last administered on 03/17/17 08:00; Start 03/17/17 at 08:00; Stop 03/17/17 at 08:01; Status DC Iohexol (Omnipaque 240 Mg/ml) 50 ml 1X ONCE PO Last administered on 03/17/17 08:00; Start 03/17/17 at 08:00; Stop 03/17/17 at 08:01; Status DC Info (Do NOT chart on this entry -- for MONITORING) 1 each PRN DAILY PRN MC SEE COMMENTS; Start 03/17/17 at 07:45; Stop 03/19/17 at 07:44; Status DC Sodium Chloride 1,000 ml @ 1,000 mls/hr 1X ONCE IV Last administered on 08:00; Start 03/17/17 at 08:00; Stop 03/17/17 at 08:59; Status DC Vancomycin HCl (Vanco Per Pharmacy) 1 each PRN DAILY PRN MC SEE COMMENTS Last administered on 03/18/17 14:24; Start 03/17/17 at 08:00; Stop 03/19/17 at 11:10 ; Status DC Fluconazole/ Sodium Chloride 200 ml @ 100 mls/hr Q24H IV Last administered on 03/21/17 08:07; Start 03/17/17 at 09:00; Stop 03/21/17 at 09:24; Status DC Vancomycin HCl 2 gm/Sodium Chloride 500 ml @ 250 mls/hr 1X ONCE IV Last administered on 03/17/17 13:08; Start 03/17/17 at 09:00; Stop 03/17/17 at 10:59 ; Status DC Acetaminophen (Tylenol) 650 mg PRN Q6HRS PRN PO FEVER Last administered on 16:34; Start 03/17/17 at 08:15 Vancomycin HCl 2 gm/Sodium Chloride 500 ml @ 250 mls/hr Q8H IV Last administered on 03/19/17 05:41; Start 03/17/17 at 22:00; Stop 03/19/17 at 11:10 ; Status DC Vancomycin HCl 1 each 1X ONCE MC ; Start 03/18/17 at 13:30; Stop 03/18/17 at 13 :31; Status DC Calcium Carbonate/ Glycine (Tums) 1,000 mg PRN Q4HRS PRN PO INDIGESTION Last administered on 03/17/17 23:57; Start 03/17/17 at 23:45 Potassium Chloride (Klor-Con) 40 meq 1X ONCE PO Last administered on 14:14; Start 03/18/17 at 12:45; Stop 03/18/17 at 12:46; Status DC Vancomycin HCl 1 each 1X ONCE MC ; Start 03/19/17 at 13:30; Stop 03/19/17 at 13 :30; Status DC Sodium Chloride 1,000 ml @ 1,000 mls/hr 1X ONCE IV Last administered on 14:28; Start 03/19/17 at 12:15; Stop 03/19/17 at 13:14; Status DC Pantoprazole Sodium (Protonix) 40 mg BIDAC PO Last administered on 03/25/17 08:31; Start 03/20/17 at 16:30; Stop 03/25/17 at 16:05; Status DC Simethicone (Gas-X) 80 mg PRN AFTMEALHC PRN PO GAS / BLOATING Last administered on 03/22/17 08:55; Start 03/20/17 at 11:15 Al Hydroxide/Mg Hydroxide (Mylanta Plus Xs) 30 ml PRN Q2HR PRN PO HEARTBURN / GAS; Start 03/20/17 at 11:15 Enoxaparin Sodium (Lovenox 40mg Syringe) 40 mg DAILY SQ Last administered on 08:09; Start 03/21/17 at 09:00; Stop 03/22/17 at 12:42; Status DC Fluconazole/ Sodium Chloride 100 ml @ 100 mls/hr Q24H IV ; Start 03/22/17 at 09:00; Stop 03/22/17 at 09:00; Status DC Piperacillin Sod/ Tazobactam Sod 3.375 gm/Sodium Chloride 50 ml @ 100 mls/hr Q12HR IV ; Start 03/21/17 at 21:00; Stop 03/21/17 at 21:00; Status DC Fluconazole/ Sodium Chloride 100 ml @ 100 mls/hr Q24H IV Last administered on 03/22/17 09:30; Start 03/22/17 at 09:00; Stop 03/23/17 at 10:05; Status DC Piperacillin Sod/ Tazobactam Sod 2.25 gm/Sodium Chloride 50 ml @ 100 mls/hr Q6HRS IV Last administered on 03/23/17 05:58; Start 03/21/17 at 12:00; Stop 03/23/17 at 10:05; Status DC Ondansetron HCl (Zofran) 8 mg PRN Q8HRS PRN IV NAUESA, 1ST CHOICE Last administered on 03/25/17 06:17; Start 03/22/17 at 09:15 Prochlorperazine Edisylate (Compazine) 10 mg PRN Q8HRS PRN IV NAUSEA/VOMITING - 2nd choice Last administered on 03/25/17 10:23; Start 03/22/17 at 09:15 Amino Acids/ Glycerin/ Electrolytes 1,000 ml @ 80 mls/hr [id number] IV Last administered on 03/27/17 06:09; Start 03/22/17 at 11:45; Stop 03/27/17 at 21 :59; Status DC Heparin Sodium (Porcine) (Heparin Sq) 5,000 unit Q8HRS SQ Last administered on 03/25/17 06:07; Start 03/22/17 at 14:00; Stop 03/25/17 at 08:45; Status DC Loperamide HCl (Imodium) 2 mg PRN Q15MIN PRN PO DIARRHEA; Start 03/23/17 at 08 :00 Amoxicillin/ Clavulanate Potassium (Augmentin 500/ 125mg) 1 tab BID PO Last administered on 03/25/17 08:31; Start 03/23/17 at 10:30; Stop 03/25/17 at 14 :03; Status DC Promethazine HCl (Phenergan) 25 mg PRN Q6HRS PRN SC NAUSEA/VOMITING; Start 05/28 at 15:15 Furosemide (Lasix) 80 mg 1X ONCE IVP Last administered on 03/24/17 12:13; Start 03/24/17 at 11:30; Stop 03/24/17 at 11:31; Status DC Iohexol (Omnipaque 240 Mg/ml) 50 ml 1X ONCE PO Last administered on 09:30; Start 03/25/17 at 09:30; Stop 03/25/17 at 09:31; Status DC Iohexol (Omnipaque 240 Mg/ml) 50 ml 1X ONCE PO Last administered on 12:32; Start 03/25/17 at 12:30; Stop 03/25/17 at 12:31; Status DC Lorazepam (Ativan) 1 mg 1X ONCE IV Last administered on 03/25/17 13:40; Start 03/25/17 at 14:00; Stop 03/25/17 at 14:01; Status DC Piperacillin Sod/ Tazobactam Sod 2.25 gm/Sodium Chloride 50 ml @ 100 mls/hr Q8HRS IV Last administered on 03/28/17 05:39; Start 03/25/17 at 15:00 Levetiracetam 500 mg/Sodium Chloride 100 ml @ 400 mls/hr Q12HR IV ; Start at 15:00; Stop 03/25/17 at 15:00; Status DC Lorazepam (Ativan) 2 mg PRN Q1HR PRN IV SEIZURE Last administered on 14:30; Start 03/25/17 at 14:15; Stop 03/25/17 at 15:27; Status DC Levetiracetam 750 mg/Sodium Chloride 107.5 ml @ 400 mls/hr Q12HR IV Last administered on 03/28/17 09:11; Start 03/25/17 at 15:00 Digoxin (Lanoxin) 500 mcg 1X ONCE IV Last administered on 03/25/17 14:34; Start 03/25/17 at 14:30; Stop 03/25/17 at 14:31; Status DC Norepinephrine Bitartrate 250 ml @ 0 mls/hr CONT PRN IV SEE I/O RECORD Last administered on 03/25/17 21:53; Start 03/25/17 at 14:30 Sodium Chloride 1,000 ml @ 1,000 mls/hr 1X ONCE IV Last administered on 03/25 15:38; Start 03/25/17 at 15:00; Stop 03/25/17 at 15:59; Status DC Lorazepam (Ativan) 2 mg PRN Q4HRS PRN IV SEIZURE Last administered on 15:55; Start 03/25/17 at 15:30 Propofol 100 ml @ As Directed STK-MED ONCE IV ; Start 03/25/17 at 15:28; Stop 03/25/17 at 15:29; Status DC Propofol 100 ml @ 0 mls/hr CONT PRN IV SEE I/O RECORD Last administered on 11:00; Start 03/25/17 at 15:45 Sodium Bicarbonate 150 meq 1X ONCE IV Last administered on 03/25/17 15:43; Start 03/25/17 at 16:00; Stop 03/25/17 at 16:01; Status DC Adenosine (Adenocard) 6 mg 1X ONCE IV Last administered on 03/25/17 15:42; Start 03/25/17 at 16:15; Stop 03/25/17 at 16:16; Status DC Adenosine (Adenocard) 12 mg 1X ONCE IV Last administered on 03/25/17 15:48; Start 03/25/17 at 16:00; Stop 03/25/17 at 16:01; Status DC Midazolam HCl (Versed) 5 mg 1X ONCE IV Last administered on 03/25/17 15:48; Start 03/25/17 at 16:00; Stop 03/25/17 at 16:01; Status DC Pantoprazole Sodium (Protonix Vial) 40 mg BID IVP Last administered on 09:11; Start 03/25/17 at 21:00 Sodium Chloride 1,000 ml @ 1,000 mls/hr Q1H PRN IV hypotension; Start at 16:30; Stop 03/25/17 at 22:29; Status DC Sodium Chloride (Normal Saline Flush) 10 ml 1X PRN PRN IV AP catheter pack; Start 03/25/17 at 16:30; Stop 03/26/17 at 08:54; Status DC Sodium Chloride (Normal Saline Flush) 10 ml 1X PRN PRN IV RECORDING STUDIO SET UP WORKER catheter pack; Start 03/25/17 at 16:30; Stop 03/26/17 at 08:54; Status DC Sodium Chloride 1,000 ml @ 400 mls/hr Q2H30M PRN IV PATENCY; Start 03/25/17 at 16:30; Stop 03/26/17 at 04:29; Status DC Info (PHARMACY MONITORING -- do not chart) 1 each PRN DAILY PRN MC SEE COMMENTS ; Start 03/25/17 at 16:30 Info (PHARMACY MONITORING -- do not chart) 1 each PRN DAILY PRN MC SEE COMMENTS ; Start 03/25/17 at 16:30; Status UNV Acetaminophen (Tylenol) 650 mg PRN Q6HRS PRN PEG MILD PAIN / TEMP Last administered on 03/25/17 18:44; Start 03/25/17 at 18:30 Fentanyl Citrate 30 ml @ 0 mls/hr CONT PRN PRN IV PROTOCOL; Start 03/25/17 at 19:15 Sodium Chloride 1,000 ml @ 1,000 mls/hr Q1H PRN IV hypotension; Start at 08:46; Stop 03/26/17 at 14:45; Status DC Sodium Chloride (Normal Saline Flush) 10 ml 1X PRN PRN IV AP catheter pack; Start 03/26/17 at 09:00; Stop 03/27/17 at 08:59; Status DC Sodium Chloride (Normal Saline Flush) 10 ml 1X PRN PRN IV RECORDING STUDIO SET UP WORKER catheter pack; Start 03/26/17 at 09:00; Stop 03/27/17 at 08:59; Status DC Sodium Chloride 1,000 ml @ 400 mls/hr Q2H30M PRN IV PATENCY; Start 03/26/17 at 08:46; Stop 03/26/17 at 20:45; Status DC Info (PHARMACY MONITORING -- do not chart) 1 each PRN DAILY PRN MC SEE COMMENTS ; Start 03/26/17 at 09:00; Status UNV Info (PHARMACY MONITORING -- do not chart) 1 each PRN DAILY PRN MC SEE COMMENTS ; Start 03/26/17 at 09:00; Status UNV Levothyroxine Sodium 15 mcg/ Sodium Chloride 5 ml @ 100 mls/hr DAILY IVP Last administered on 03/28/17 09:11; Start 03/26/17 at 14:00 Chlorhexidine Gluconate (Peridex) 15 ml BID MM Last administered on 03/27/17 07:45; Start 03/26/17 at 21:00; Stop 03/27/17 at 20:57; Status DC Heparin Sodium (Porcine) (Heparin Sq) 5,000 unit BID SQ Last administered on 09:12; Start 03/26/17 at 21:00 Heparin Sodium (Porcine) (Heparin Sodium) 10,000 unit STK-MED ONCE .ROUTE ; Start 03/27/17 at 08:15; Stop 03/27/17 at 08:16; Status DC Lidocaine/ Epinephrine (Xylocaine 1%-Epi 1:100,000) 20 ml STK-MED ONCE .ROUTE ; Start 03/27/17 at 08:15; Stop 03/27/17 at 08:16; Status DC Heparin Sodium/ Sodium Chloride 500 ml @ As Directed STK-MED ONCE .ROUTE ; Start 03/27/17 at 08:15; Stop 03/27/17 at 08:16; Status DC Heparin Sodium/ Sodium Chloride 1,000 unit 1X ONCE IART Last administered on 03/27/17 10:53; Start 03/27/17 at 10:30; Stop 03/27/17 at 10:45; Status DC Lidocaine/ Epinephrine (Xylocaine 1%-Epi 1:100,000) 20 ml 1X ONCE INJ Last administered on 03/27/17 10:53; Start 03/27/17 at 10:30; Stop 03/27/17 at 10 :45; Status DC Heparin Sodium (Porcine) (Heparin Sodium) 3,800 unit 1X ONCE INT CAT Last administered on 03/27/17 10:54; Start 03/27/17 at 10:30; Stop 03/27/17 at 10 :45; Status DC Darbepoetin Jean (Aranesp) 60 mcg WEEKLYHS SQ Last administered on 03/27/17 22:38; Start 03/27/17 at 21:00 Info 1 each PRN DAILY PRN MC SEE COMMENTS Last administered on 03/27/17 14:18 ; Start 03/27/17 at 13:45 Sodium Chloride 90 meq/Potassium Chloride 50 meq/ Potassium Phosphate 13.6 mmol/ Magnesium Sulfate 10 meq/ Calcium Gluconate 10 meq/ Multivitamins 10 ml/Chromium / Copper/Manganese/ Seleni/Zn 1 ml/ Total Parenteral Nutrition/Amino Acids/ Dextrose/ Fat Emulsion Intravenous 1,512 ml @ 63 mls/hr TPN CONT IV Last administered on 03/27/17 22:37; Start 03/27/17 at 22:00; Stop 03/28/17 at 21 :59 Adenosine (Adenocard) 18 mg STK-MED ONCE IV ; Start 03/26/17 at 12:00; Stop at 14:50; Status DC Midazolam HCl (Versed) 5 mg STK-MED ONCE .ROUTE ; Start 03/26/17 at 12:00; Stop 03/27/17 at 14:50; Status DC Sodium Bicarbonate 150 meq STK-MED ONCE .ROUTE ; Start 03/26/17 at 12:00; Stop 03/27/17 at 14:50; Status DC Morphine Sulfate 2 mg PRN Q2HR PRN IV PAIN Last administered on 03/27/17t 15: 43; Start 03/27/17 at 15:30 Midazolam HCl (Versed) 5 mg STK-MED ONCE .ROUTE ; Start 03/25/17 at 12:00; Stop 03/27/17 at 15:30; Status DC Vecuronium [place] (Norcuron Bolus) 10 mg STK-MED ONCE IV ; Start 03/25/17 at 12:00; Stop 03/27/17 at 15:30; Status DC Albumin Human 200 ml @ 200 mls/hr 1X PRN PRN IV Hypotension; Start 03/27/17 at 19:30; Stop 03/28/17 at 01:29; Status DC Sodium Chloride (Normal Saline Flush) 10 ml 1X PRN PRN IV AP catheter pack; Start 03/27/17 at 19:30; Stop 03/28/17 at 19:29 Sodium Chloride (Normal Saline Flush) 10 ml 1X PRN PRN IV RECORDING STUDIO SET [employer] catheter pack; Start 03/27/17 at 19:30; Stop 03/28/17 at 19:29 Info (PHARMACY MONITORING -- do not chart) 1 each PRN DAILY PRN MC SEE COMMENTS ; Start 03/27/17 at 19:30; Status UNV Info (PHARMACY MONITORING -- do not chart) 1 each PRN DAILY PRN MC SEE COMMENTS ; Start 03/27/17 at 19:30; Status UNV Active Scripts Active Reported Multivitamins (Multivitamin) 1 Each Tablet 1 Tab PO DAILY Omeprazole 20 Mg Capsule. 1 Cap PO DAILY Vitals/I & O Vital Sign - Last 24 Hours 03/27/17 03/27/17 03/27/17 03/27/17 09:50 10:00 11:00 11:21 Pulse 74 90 Resp 15 21 B/P (MAP) 120/64 (82) 130/66 (87) Pulse Ox 100 100 97 100 O2 Delivery Ventilator Ventilator Ventilator Ventilator 03/27/17 03/27/17 03/27/17 03/27/17 12:00 12:00 12:20 13:00 Temp 98.6 98.6 Pulse 84 98 Resp 16 20 B/P (MAP) 128/70 (89) 140/80 (100) Pulse Ox 98 94 O2 Delivery Mechanical Ventilator Ventilator Ventilator Nasal Cannula O2 Flow Rate 1.0 03/27/17 03/27/17 03/27/17 03/27/17 13:05 14:00 15:10 15:31 Pulse 96 91 Resp 15 18 21 B/P (MAP) 132/74 (93) 136/71 (92) Pulse Ox 94 97 99 O2 Delivery Nasal Cannula Nasal Cannula Nasal Cannula Nasal Cannula O2 Flow Rate 3.0 1.0 1.0 1.0 03/27/17 03/27/17 03/27/17 03/27/17 15:43 16:00 16:00 16:00 Temp 98.4 98.4 Pulse 92 Resp 14 20 14 B/P (MAP) 111/65 (80) Pulse Ox 99 97 O2 Delivery Nasal Cannula Nasal Cannula Nasal Cannula Nasal Cannula O2 Flow Rate 2.0 1.0 1.0 1.0 03/27/17 03/27/17 03/27/17 03/27/17 17:00 18:00 19:00 20:00 Pulse 90 96 86 Resp 20 25 22 B/P (MAP) 108/77 (87) 117/82 (94) 113/75 (88) Pulse Ox 98 98 98 O2 Delivery Nasal Cannula Nasal Cannula Nasal Cannula Nasal Cannula O2 Flow Rate 1.0 1.0 1.0 2.0 03/27/17 03/27/17 03/27/17 03/28/17 20:00 22:00 23:00 00:00 Temp 98.5 98.5 Pulse 88 98 97 Resp 23 24 26 B/P (MAP) 123/84 (97) 110/76 (87) 100/81 (87) Pulse Ox 99 98 98 O2 Delivery Nasal Cannula Nasal Cannula Nasal Cannula Nasal Cannula O2 Flow Rate 1.0 2.0 2.0 2.0 03/28/17 03/28/17 03/28/17 03/28/17 00:00 01:00 02:00 03:00 Pulse 99 102 101 93 Resp 32 20 20 20 B/P (MAP) 108/81 (90) 124/71 (88) 107/74 (85) 103/75 (84) Pulse Ox 98 98 98 99 O2 Delivery Nasal Cannula Nasal Cannula Nasal Cannula Nasal Cannula O2 Flow Rate 2.0 2.0 2.0 2.0 03/28/17 03/28/17 03/28/17 03/28/17 04:00 04:00 05:00 06:00 Temp 98.8 98.8 Pulse 98 94 89 Resp 20 20 17 B/P (MAP) 114/80 (91) 99/65 (76) 112/76 (88) Pulse Ox 94 99 99 O2 Delivery Nasal Cannula Room Air Room Air Nasal Cannula O2 Flow Rate 2.0 2.0 2.0 03/28/17 03/28/17 03/28/17 07:13 08:00 09:00 Temp 99.0 99.0 Pulse 89 96 100 Resp 21 29 26 B/P (MAP) 106/66 (79) 109/83 (92) 117/73 (88) Pulse Ox 96 96 96 O2 Delivery Nasal Cannula Nasal Cannula Nasal Cannula O2 Flow Rate 2.0 2.0 2.0 Intake and Output 03/28/17 03/28/17 03/29/17 15:00 23:00 07:00 Output Total 350 ml Balance -350 ml MATTHIAS ZULETA MD Mar 28, 2017 09:50
--- NOTE | 2017-03-28 11:46 | PDOC ---
SURGICAL PROGRESS NOTE Subjective Pt sitting in chair, no new c/o Vital Signs Vital Signs Date Time Temp Pulse Resp B/P (MAP) Pulse Ox O2 Delivery O2 Flow Rate FiO2 03/28/17 10:00 112 11 119/89 (99) 93 Nasal Cannula 2.0 03/28/17 08:00 99.0 99.0 I&O Intake and Output 03/29/17 07:00 Output Total 1050 ml Balance -1050 ml Output Urine Total 1050 ml General: Alert, Cooperative, No acute distress, Other (appears fatigued) Abdomen: Soft, No tenderness Labs Laboratory Tests Test 03/26/17 14:25 03/27/17 06:10 03/27/17 08:06 03/27/17 08:45 O2 Saturation 98 % (92-99) 98 % (92-99) Arterial Blood pH 7.48 (7.35-7.45) 7.46 (7.35-7.45) Arterial Blood pCO2 at Patient Temp 34 mmHg (35-46) 37 mmHg (35-46) Arterial Blood pO2 at Patient Temp 115 mmHg (85-108) 119 mmHg (85-108) Arterial Blood HCO3 24 mmol/L (21-28) 26 mmol/L (21-28) Arterial Blood Base Excess 1 mmol/L (-3-3) 2 mmol/L (-3-3) FiO2 40 40 White Blood Count 10.1 x10^3/uL (4.0-11.0) Red Blood Count 3.30 x10^6/uL (3.50-5.40) Hemoglobin 9.9 g/dL (12.0-15.5) Hematocrit 29.4 % (36.0-47.0) Mean Corpuscular Volume 89 fL (79-100) Mean Corpuscular Hemoglobin 30 pg (25-35) Mean Corpuscular Hemoglobin Concent 34 g/dL (31-37) Red Cell Distribution Width 15.6 % (11.5-14.5) Platelet Count 284 x10^3/uL (140-400) Neutrophils (%) (Auto) 69 % (31-73) Lymphocytes (%) (Auto) 19 % (24-48) Monocytes (%) (Auto) 7 % (0-9) Eosinophils (%) (Auto) 4 % (0-3) Basophils (%) (Auto) 1 % (0-3) Neutrophils # (Auto) 7.0 x10^3uL (1.8-7.7) Lymphocytes # (Auto) 1.9 x10^3/uL (1.0-4.8) Monocytes # (Auto) 0.7 x10^3/uL (0.0-1.1) Eosinophils # (Auto) 0.4 x10^3/uL (0.0-0.7) Basophils # (Auto) 0.1 x10^3/uL (0.0-0.2) Sodium Level 141 mmol/L (136-145) Potassium Level 3.7 mmol/L (3.5-5.1) Chloride Level 106 mmol/L (98-107) Carbon Dioxide Level 26 mmol/L (21-32) Anion Gap 9 (6-14) Blood Urea Nitrogen 31 mg/dL (7-20) Creatinine 4.4 mg/dL (0.6-1.0) Estimated GFR (Cockcroft-Gault) 11.9 BUN/Creatinine Ratio 7 (6-20) Glucose Level 94 mg/dL (70-99) Calcium Level 8.6 mg/dL (8.5-10.1) Phosphorus Level 3.3 mg/dL (2.6-4.7) Total Bilirubin 0.3 mg/dL (0.2-1.0) Aspartate Amino Transf (AST/SGOT) 27 U/L (15-37) Alanine Aminotransferase (ALT/SGPT) 32 U/L (14-59) Alkaline Phosphatase 54 U/L (46-116) Creatine Kinase 29 U/L (26-192) Total Protein 5.7 g/dL (6.4-8.2) Albumin 1.7 g/dL (3.4-5.0) Albumin/Globulin Ratio 0.4 (1.0-1.7) Prothrombin Time 15.0 SEC (11.7-14.0) Prothromb Time International Ratio 1.3 (0.8-1.1) Activated Partial Thromboplast Time 27 SEC (24-38) Test 03/27/17 12:45 03/28/17 05:00 O2 Saturation 94 % (92-99) Arterial Blood pH 7.46 (7.35-7.45) Arterial Blood pCO2 at Patient Temp 35 mmHg (35-46) Arterial Blood pO2 at Patient Temp 72 mmHg (85-108) Arterial Blood HCO3 24 mmol/L (21-28) Arterial Blood Base Excess 1 mmol/L (-3-3) FiO2 40 White Blood Count 11.7 x10^3/uL (4.0-11.0) Red Blood Count 3.34 x10^6/uL (3.50-5.40) Hemoglobin 10.1 g/dL (12.0-15.5) Hematocrit 29.9 % (36.0-47.0) Mean Corpuscular Volume 90 fL (79-100) Mean Corpuscular Hemoglobin 30 pg (25-35) Mean Corpuscular Hemoglobin Concent 34 g/dL (31-37) Red Cell Distribution Width 15.6 % (11.5-14.5) Platelet Count 301 x10^3/uL (140-400) Neutrophils (%) (Auto) 74 % (31-73) Lymphocytes (%) (Auto) 17 % (24-48) Monocytes (%) (Auto) 6 % (0-9) Eosinophils (%) (Auto) 2 % (0-3) Basophils (%) (Auto) 1 % (0-3) Neutrophils # (Auto) 8.6 x10^3uL (1.8-7.7) Lymphocytes # (Auto) 2.0 x10^3/uL (1.0-4.8) Monocytes # (Auto) 0.7 x10^3/uL (0.0-1.1) Eosinophils # (Auto) 0.2 x10^3/uL (0.0-0.7) Basophils # (Auto) 0.1 x10^3/uL (0.0-0.2) Sodium Level 145 mmol/L (136-145) Potassium Level 3.7 mmol/L (3.5-5.1) Chloride Level 107 mmol/L (98-107) Carbon Dioxide Level 31 mmol/L (21-32) Anion Gap 7 (6-14) Blood Urea Nitrogen 21 mg/dL (7-20) Creatinine 2.9 mg/dL (0.6-1.0) Estimated GFR (Cockcroft-Gault) 19.3 Glucose Level 110 mg/dL (70-99) Glucose (Fingerstick) 111 mg/dL (70-99) Calcium Level 8.9 mg/dL (8.5-10.1) Phosphorus Level 3.7 mg/dL (2.6-4.7) Magnesium Level 1.9 mg/dL (1.8-2.4) Laboratory Tests Test 03/27/17 12:45 03/28/17 05:00 O2 Saturation 94 % (92-99) Arterial Blood pH 7.46 (7.35-7.45) Arterial Blood pCO2 at Patient Temp 35 mmHg (35-46) Arterial Blood pO2 at Patient Temp 72 mmHg (85-108) Arterial Blood HCO3 24 mmol/L (21-28) Arterial Blood Base Excess 1 mmol/L (-3-3) FiO2 40 White Blood Count 11.7 x10^3/uL (4.0-11.0) Red Blood Count 3.34 x10^6/uL (3.50-5.40) Hemoglobin 10.1 g/dL (12.0-15.5) Hematocrit 29.9 % (36.0-47.0) Mean Corpuscular Volume 90 fL (79-100) Mean Corpuscular Hemoglobin 30 pg (25-35) Mean Corpuscular Hemoglobin Concent 34 g/dL (31-37) Red Cell Distribution Width 15.6 % (11.5-14.5) Platelet Count 301 x10^3/uL (140-400) Neutrophils (%) (Auto) 74 % (31-73) Lymphocytes (%) (Auto) 17 % (24-48) Monocytes (%) (Auto) 6 % (0-9) Eosinophils (%) (Auto) 2 % (0-3) Basophils (%) (Auto) 1 % (0-3) Neutrophils # (Auto) 8.6 x10^3uL (1.8-7.7) Lymphocytes # (Auto) 2.0 x10^3/uL (1.0-4.8) Monocytes # (Auto) 0.7 x10^3/uL (0.0-1.1) Eosinophils # (Auto) 0.2 x10^3/uL (0.0-0.7) Basophils # (Auto) 0.1 x10^3/uL (0.0-0.2) Sodium Level 145 mmol/L (136-145) Potassium Level 3.7 mmol/L (3.5-5.1) Chloride Level 107 mmol/L (98-107) Carbon Dioxide Level 31 mmol/L (21-32) Anion Gap 7 (6-14) Blood Urea Nitrogen 21 mg/dL (7-20) Creatinine 2.9 mg/dL (0.6-1.0) Estimated GFR (Cockcroft-Gault) 19.3 Glucose Level 110 mg/dL (70-99) Glucose (Fingerstick) 111 mg/dL (70-99) Calcium Level 8.9 mg/dL (8.5-10.1) Phosphorus Level 3.7 mg/dL (2.6-4.7) Magnesium Level 1.9 mg/dL (1.8-2.4) Problem List s/p lap appendectomy cont supportive care OK to transfer to floor Assessment/Plan OK to transfer to floor Problems: POPPY TUBBS MD Mar 28, 2017 11:46
--- NOTE | 2017-03-28 12:14 | PDOC ---
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 Pt's parents were present.Pt was very nauseous and fatigued. She is off the ventilator but still has TPN. Pt is being followed by general surgery, neuro, cardio, and infectious disease. She is currently on dialysis. Will continue to monitor in the ICU. Vitals Vitals Vital Signs Date Time Temp Pulse Resp B/P (MAP) Pulse Ox O2 Delivery O2 Flow Rate FiO2 03/28/17 10:00 112 11 119/89 (99) 93 Nasal Cannula 2.0 03/28/17 08:00 99.0 99.0 Physical Exam General: Alert, Oriented X3, Cooperative, mild distress, Other (appears fatigued) Heart: Regular rate, Normal S1, Normal S2, No murmurs Lungs: Clear Abdomen: Normal bowel sounds, Soft, No tenderness Extremities: No clubbing, No cyanosis, No edema, Normal pulses, No tenderness/ swelling Skin: No rashes, No breakdown, No significant lesion Labs LABS Laboratory Tests Test 03/27/17 12:45 03/28/17 05:00 O2 Saturation 94 % (92-99) Arterial Blood pH 7.46 (7.35-7.45) Arterial Blood pCO2 at Patient Temp 35 mmHg (35-46) Arterial Blood pO2 at Patient Temp 72 mmHg (85-108) Arterial Blood HCO3 24 mmol/L (21-28) Arterial Blood Base Excess 1 mmol/L (-3-3) FiO2 40 White Blood Count 11.7 x10^3/uL (4.0-11.0) Red Blood Count 3.34 x10^6/uL (3.50-5.40) Hemoglobin 10.1 g/dL (12.0-15.5) Hematocrit 29.9 % (36.0-47.0) Mean Corpuscular Volume 90 fL (79-100) Mean Corpuscular Hemoglobin 30 pg (25-35) Mean Corpuscular Hemoglobin Concent 34 g/dL (31-37) Red Cell Distribution Width 15.6 % (11.5-14.5) Platelet Count 301 x10^3/uL (140-400) Neutrophils (%) (Auto) 74 % (31-73) Lymphocytes (%) (Auto) 17 % (24-48) Monocytes (%) (Auto) 6 % (0-9) Eosinophils (%) (Auto) 2 % (0-3) Basophils (%) (Auto) 1 % (0-3) Neutrophils # (Auto) 8.6 x10^3uL (1.8-7.7) Lymphocytes # (Auto) 2.0 x10^3/uL (1.0-4.8) Monocytes # (Auto) 0.7 x10^3/uL (0.0-1.1) Eosinophils # (Auto) 0.2 x10^3/uL (0.0-0.7) Basophils # (Auto) 0.1 x10^3/uL (0.0-0.2) Sodium Level 145 mmol/L (136-145) Potassium Level 3.7 mmol/L (3.5-5.1) Chloride Level 107 mmol/L (98-107) Carbon Dioxide Level 31 mmol/L (21-32) Anion Gap 7 (6-14) Blood Urea Nitrogen 21 mg/dL (7-20) Creatinine 2.9 mg/dL (0.6-1.0) Estimated GFR (Cockcroft-Gault) 19.3 Glucose Level 110 mg/dL (70-99) Glucose (Fingerstick) 111 mg/dL (70-99) Calcium Level 8.9 mg/dL (8.5-10.1) Phosphorus Level 3.7 mg/dL (2.6-4.7) Magnesium Level 1.9 mg/dL (1.8-2.4) Review of Systems Review of Systems Pt complains of fatigue, weakness,and nausea. Assessment and Plan Assessmemt and Plan Assesment: Acute renal failure ATN morbid obesity BMI 44 Persistent nausea gastric sleeve EMILY Weakness Abd pain Plan: Continue ICU monitoring Dialysis Continue TPN Appreciate subspecialist input Order Labs Continue home meds Order PT/OT Problems: Comment Review of Relevant I have reviewed the following items na (where applicable) has been applied. Labs Laboratory Tests Test 03/26/17 14:25 03/27/17 06:10 03/27/17 08:06 03/27/17 08:45 O2 Saturation 98 % (92-99) 98 % (92-99) Arterial Blood pH 7.48 (7.35-7.45) 7.46 (7.35-7.45) Arterial Blood pCO2 at Patient Temp 34 mmHg (35-46) 37 mmHg (35-46) Arterial Blood pO2 at Patient Temp 115 mmHg (85-108) 119 mmHg (85-108) Arterial Blood HCO3 24 mmol/L (21-28) 26 mmol/L (21-28) Arterial Blood Base Excess 1 mmol/L (-3-3) 2 mmol/L (-3-3) FiO2 40 40 White Blood Count 10.1 x10^3/uL (4.0-11.0) Red Blood Count 3.30 x10^6/uL (3.50-5.40) Hemoglobin 9.9 g/dL (12.0-15.5) Hematocrit 29.4 % (36.0-47.0) Mean Corpuscular Volume 89 fL (79-100) Mean Corpuscular Hemoglobin 30 pg (25-35) Mean Corpuscular Hemoglobin Concent 34 g/dL (31-37) Red Cell Distribution Width 15.6 % (11.5-14.5) Platelet Count 284 x10^3/uL (140-400) Neutrophils (%) (Auto) 69 % (31-73) Lymphocytes (%) (Auto) 19 % (24-48) Monocytes (%) (Auto) 7 % (0-9) Eosinophils (%) (Auto) 4 % (0-3) Basophils (%) (Auto) 1 % (0-3) Neutrophils # (Auto) 7.0 x10^3uL (1.8-7.7) Lymphocytes # (Auto) 1.9 x10^3/uL (1.0-4.8) Monocytes # (Auto) 0.7 x10^3/uL (0.0-1.1) Eosinophils # (Auto) 0.4 x10^3/uL (0.0-0.7) Basophils # (Auto) 0.1 x10^3/uL (0.0-0.2) Sodium Level 141 mmol/L (136-145) Potassium Level 3.7 mmol/L (3.5-5.1) Chloride Level 106 mmol/L (98-107) Carbon Dioxide Level 26 mmol/L (21-32) Anion Gap 9 (6-14) Blood Urea Nitrogen 31 mg/dL (7-20) Creatinine 4.4 mg/dL (0.6-1.0) Estimated GFR (Cockcroft-Gault) 11.9 BUN/Creatinine Ratio 7 (6-20) Glucose Level 94 mg/dL (70-99) Calcium Level 8.6 mg/dL (8.5-10.1) Phosphorus Level 3.3 mg/dL (2.6-4.7) Total Bilirubin 0.3 mg/dL (0.2-1.0) Aspartate Amino Transf (AST/SGOT) 27 U/L (15-37) Alanine Aminotransferase (ALT/SGPT) 32 U/L (14-59) Alkaline Phosphatase 54 U/L (46-116) Creatine Kinase 29 U/L (26-192) Total Protein 5.7 g/dL (6.4-8.2) Albumin 1.7 g/dL (3.4-5.0) Albumin/Globulin Ratio 0.4 (1.0-1.7) Prothrombin Time 15.0 SEC (11.7-14.0) Prothromb Time International Ratio 1.3 (0.8-1.1) Activated Partial Thromboplast Time 27 SEC (24-38) Test 03/27/17 12:45 03/28/17 05:00 O2 Saturation 94 % (92-99) Arterial Blood pH 7.46 (7.35-7.45) Arterial Blood pCO2 at Patient Temp 35 mmHg (35-46) Arterial Blood pO2 at Patient Temp 72 mmHg (85-108) Arterial Blood HCO3 24 mmol/L (21-28) Arterial Blood Base Excess 1 mmol/L (-3-3) FiO2 40 White Blood Count 11.7 x10^3/uL (4.0-11.0) Red Blood Count 3.34 x10^6/uL (3.50-5.40) Hemoglobin 10.1 g/dL (12.0-15.5) Hematocrit 29.9 % (36.0-47.0) Mean Corpuscular Volume 90 fL (79-100) Mean Corpuscular Hemoglobin 30 pg (25-35) Mean Corpuscular Hemoglobin Concent 34 g/dL (31-37) Red Cell Distribution Width 15.6 % (11.5-14.5) Platelet Count 301 x10^3/uL (140-400) Neutrophils (%) (Auto) 74 % (31-73) Lymphocytes (%) (Auto) 17 % (24-48) Monocytes (%) (Auto) 6 % (0-9) Eosinophils (%) (Auto) 2 % (0-3) Basophils (%) (Auto) 1 % (0-3) Neutrophils # (Auto) 8.6 x10^3uL (1.8-7.7) Lymphocytes # (Auto) 2.0 x10^3/uL (1.0-4.8) Monocytes # (Auto) 0.7 x10^3/uL (0.0-1.1) Eosinophils # (Auto) 0.2 x10^3/uL (0.0-0.7) Basophils # (Auto) 0.1 x10^3/uL (0.0-0.2) Sodium Level 145 mmol/L (136-145) Potassium Level 3.7 mmol/L (3.5-5.1) Chloride Level 107 mmol/L (98-107) Carbon Dioxide Level 31 mmol/L (21-32) Anion Gap 7 (6-14) Blood Urea Nitrogen 21 mg/dL (7-20) Creatinine 2.9 mg/dL (0.6-1.0) Estimated GFR (Cockcroft-Gault) 19.3 Glucose Level 110 mg/dL (70-99) Glucose (Fingerstick) 111 mg/dL (70-99) Calcium Level 8.9 mg/dL (8.5-10.1) Phosphorus Level 3.7 mg/dL (2.6-4.7) Magnesium Level 1.9 mg/dL (1.8-2.4) Laboratory Tests Test 03/27/17 12:45 03/28/17 05:00 O2 Saturation 94 % (92-99) Arterial Blood pH 7.46 (7.35-7.45) Arterial Blood pCO2 at Patient Temp 35 mmHg (35-46) Arterial Blood pO2 at Patient Temp 72 mmHg (85-108) Arterial Blood HCO3 24 mmol/L (21-28) Arterial Blood Base Excess 1 mmol/L (-3-3) FiO2 40 White Blood Count 11.7 x10^3/uL (4.0-11.0) Red Blood Count 3.34 x10^6/uL (3.50-5.40) Hemoglobin 10.1 g/dL (12.0-15.5) Hematocrit 29.9 % (36.0-47.0) Mean Corpuscular Volume 90 fL (79-100) Mean Corpuscular Hemoglobin 30 pg (25-35) Mean Corpuscular Hemoglobin Concent 34 g/dL (31-37) Red Cell Distribution Width 15.6 % (11.5-14.5) Platelet Count 301 x10^3/uL (140-400) Neutrophils (%) (Auto) 74 % (31-73) Lymphocytes (%) (Auto) 17 % (24-48) Monocytes (%) (Auto) 6 % (0-9) Eosinophils (%) (Auto) 2 % (0-3) Basophils (%) (Auto) 1 % (0-3) Neutrophils # (Auto) 8.6 x10^3uL (1.8-7.7) Lymphocytes # (Auto) 2.0 x10^3/uL (1.0-4.8) Monocytes # (Auto) 0.7 x10^3/uL (0.0-1.1) Eosinophils # (Auto) 0.2 x10^3/uL (0.0-0.7) Basophils # (Auto) 0.1 x10^3/uL (0.0-0.2) Sodium Level 145 mmol/L (136-145) Potassium Level 3.7 mmol/L (3.5-5.1) Chloride Level 107 mmol/L (98-107) Carbon Dioxide Level 31 mmol/L (21-32) Anion Gap 7 (6-14) Blood Urea Nitrogen 21 mg/dL (7-20) Creatinine 2.9 mg/dL (0.6-1.0) Estimated GFR (Cockcroft-Gault) 19.3 Glucose Level 110 mg/dL (70-99) Glucose (Fingerstick) 111 mg/dL (70-99) Calcium Level 8.9 mg/dL (8.5-10.1) Phosphorus Level 3.7 mg/dL (2.6-4.7) Magnesium Level 1.9 mg/dL (1.8-2.4) Microbiology 10/14/17 Blood Culture - Preliminary, Resulted NO GROWTH AFTER 2 DAYS Medications Current Medications Dexamethasone Sodium Phosphate (Decadron) 20 mg STK-MED ONCE .ROUTE ; Start 03/15/17 at 14:06; Stop 03/15/17 at 14:07; Status DC Ondansetron HCl (Zofran) 4 mg STK-MED ONCE .ROUTE ; Start 03/15/17 at 14:06; Stop 03/15/17 at 14:07; Status DC Propofol 20 ml @ As Directed STK-MED ONCE IV ; Start 03/15/17 at 14:06; Stop at 14:07; Status DC Lidocaine HCl (Lidocaine Pf 2% Vial) 5 ml STK-MED ONCE .ROUTE ; Start 03/15/17 at 14:06; Stop 03/15/17 at 14:07; Status DC Midazolam HCl (Versed) 2 mg STK-MED ONCE .ROUTE ; Start 03/15/17 at 14:06; Stop 03/15/17 at 14:07; Status DC Fentanyl Citrate (Fentanyl 2ml Vial) 100 mcg STK-MED ONCE .ROUTE ; Start at 14:06; Stop 03/15/17 at 14:07; Status DC Rocuronium [place] (Zemuron) 100 mg STK-MED ONCE .ROUTE ; Start 03/15/17 at 14: 07; Stop 03/15/17 at 14:08; Status DC Succinylcholine Chloride (Anectine) 200 mg STK-MED ONCE .ROUTE ; Start 03/15/17 at 14:07; Stop 03/15/17 at 14:08; Status DC Bupivacaine HCl/ Epinephrine Bitart (Marcaine-Epi 0.5%-[id number]) 50 ml STK-MED ONCE .ROUTE Last administered on 03/15/17 14:54; Start 03/15/17 at 13:07; Stop 03/15/17 at 14:08; Status DC Cefoxitin Sodium 2 gm/Sodium Chloride 100 ml @ 200 mls/hr 1X PREOP IV Last administered on 03/15/17 14:55; Start 03/15/17 at 16:00; Stop 03/16/17 at 14:41 ; Status DC Sodium Chloride 1,000 ml @ 125 mls/hr 1X ONCE IV Last administered on 14:15; Start 03/15/17 at 14:15; Stop 03/15/17 at 22:14; Status DC Cefoxitin Sodium 100 ml @ As Directed STK-MED ONCE IV ; Start 03/15/17 at 14:53 ; Stop 03/15/17 at 14:54; Status DC Enoxaparin Sodium (Lovenox 40mg Syringe) 40 mg Q24H SQ ; Start 03/15/17 at 15:30 ; Stop 03/16/17 at 14:38; Status DC Sodium Chloride (Normal Saline Flush) 3 ml QSHIFT PRN IV AFTER MEDS AND BLOOD DRAWS; Start 03/15/17 at 15:30 Ringer's Solution 1,000 ml @ 75 mls/hr [id number] IV Last administered on 21:12; Start 03/15/17 at 15:19; Stop 03/27/17 at 12:51; Status DC Acetaminophen/ Hydrocodone Bitart (Lortab 5/325) 1 tab PRN Q4HRS PRN PO MILD PAIN Last administered on 03/16/17 02:56; Start 03/15/17 at 15:30; Stop at 13:05; Status DC Ketorolac Tromethamine (Toradol) 15 mg PRN Q6HRS PRN IV PAIN; Start 03/15/17 at 15:30; Stop 03/16/17 at 09:05; Status DC Morphine Sulfate 2 mg PRN Q1HR PRN IV PAIN Last administered on 03/22/17 09: 36; Start 03/15/17 at 15:30; Stop 03/27/17 at 12:51; Status DC Docusate Sodium (Colace) 100 mg BID PO Last administered on 03/17/17 13:04; Start 03/15/17 at 21:00 Ondansetron HCl (Zofran) 4 mg PRN Q6HRS PRN IV NAUESA, 1ST CHOICE Last administered on 03/22/17 06:34; Start 03/15/17 at 15:30; Stop 03/22/17 at 09: 09; Status DC Piperacillin Sod/ Tazobactam Sod 3.375 gm/Sodium Chloride 50 ml @ 100 mls/hr Q6HRS IV Last administered on 03/21/17 06:20; Start 03/15/17 at 18:00; Stop 03/21/17 at 09:24; Status DC Morphine Sulfate 10 mg STK-MED ONCE .ROUTE ; Start 03/15/17 at 15:32; Stop 03/15 at 15:33; Status DC Ringer's Solution 1,000 ml @ 125 mls/hr Q8H IV Last administered on 03/16/17 00:51; Start 03/15/17 at 15:42; Stop 03/16/17 at 03:41; Status DC Lidocaine HCl (Xylocaine-Mpf 1% Vial) 0.5 ml 1X PRN PRN INJ IV START; Start at 15:45; Stop 03/16/17 at 15:44; Status DC Ringer's Solution 1,000 ml @ 125 mls/hr Q8H IV ; Start 03/15/17 at 15:42; Stop 03/15/17 at 21:41; Status DC Fentanyl Citrate (Fentanyl 2ml Vial) 25 mcg PRN Q5MIN PRN IV Acute Pain; Start 03/15/17 at 15:45; Stop 03/16/17 at 09:05; Status DC Fentanyl Citrate (Fentanyl 2ml Vial) 50 mcg PRN Q5MIN PRN IV Acute Pain Last administered on 03/15/17 15:58; Start 03/15/17 at 15:45; Stop 03/16/17 at 09:05 ; Status DC Morphine Sulfate 2 mg PRN Q10MIN PRN IV Mild Pain; Start 03/15/17 at 15:45; Stop 03/16/17 at 09:05; Status DC Morphine Sulfate 4 mg PRN Q10MIN PRN IV Moderate Pain; Start 03/15/17 at 15:45 ; Stop 03/16/17 at 09:05; Status DC Ondansetron HCl (Zofran) 4 mg PRN Q6HRS PRN IV Nausea, 1st Choice; Start at 15:45; Stop 03/16/17 at 09:05; Status DC Metoclopramide HCl (Reglan) 10 mg PRN Q6HRS PRN IV Nausea/Vomiting, 2nd Choice Last administered on 03/15/17 18:49; Start 03/15/17 at 15:45; Stop 03/16/17 at 15:44; Status DC Diphenhydramine HCl (Benadryl) 12.5 mg PRN Q2HR PRN IV ITCHING; Start 03/15/17 at 15:45; Stop 03/16/17 at 15:44; Status DC Albuterol Sulfate (Ventolin Neb Soln) 2.5 mg PRN 1X PRN NEB Shortness of Breath , Wheezing; Start 03/15/17 at 15:45; Stop 03/16/17 at 15:44; Status DC Dexamethasone Sodium Phosphate (Decadron) 8 mg 1X PRN PRN IV 3RD CHOICE FOR NAUSEA; Start 03/15/17 at 15:45; Stop 03/16/17 at 15:44; Status DC Meperidine HCl (Demerol) 10 mg 1X PERIOP PRN IV SHIVERING; Start 03/15/17 at 15 :45; Stop 03/16/17 at 15:44; Status DC Meperidine HCl (Demerol) 15 mg 1X PERIOP PRN IV SHIVERING; Start 03/15/17 at 15 :45; Stop 03/16/17 at 15:44; Status DC Prochlorperazine Edisylate (Compazine) 10 mg STK-MED ONCE .ROUTE ; Start at 15:48; Stop 03/15/17 at 15:49; Status DC Prochlorperazine Maleate (Compazine) 5 mg 1X PACU PRN PO NAUSEA/VOMITING; Start 03/15/17 at 16:00; Stop 03/19/17 at 19:03; Status DC Hydromorphone HCl (Dilaudid) 0.5 mg PRN Q10MIN PRN IV PAIN Last administered on 03/15/17 16:52; Start 03/15/17 at 16:15; Stop 03/16/17 at 09:05; Status DC Acetaminophen/ Hydrocodone Bitart (Lortab 5/325) 2 tab PRN Q4HRS PRN PO PAIN Last administered on 03/16/17 10:16; Start 03/16/17 at 09:15; Stop 03/16/17 at 13:05; Status DC Multivitamins (Thera M Plus) 1 tab DAILY PO Last administered on 03/27/17 11: 29; Start 03/16/17 at 13:00 Pantoprazole Sodium (Protonix) 40 mg DAILYAC PO Last administered on 03/20/17 08:48; Start 03/16/17 at 13:00; Stop 03/20/17 at 11:14; Status DC Oxycodone/ Acetaminophen (Percocet 7.5/ 325) 1 tab PRN Q4HRS PRN PO PAIN Last administered on 03/23/17 14:59; Start 03/16/17 at 13:15 Morphine Sulfate 4 mg PRN Q2HR PRN IV PAIN Last administered on 03/18/17 14:11 ; Start 03/16/17 at 13:15; Stop 03/27/17 at 12:51; Status DC Enoxaparin Sodium (Lovenox 40mg Syringe) 40 mg Q12HR SQ Last administered on 08:47; Start 03/16/17 at 21:00; Stop 03/20/17 at 16:57; Status DC Iohexol (Omnipaque 300 Mg/ml) 75 ml 1X ONCE IV Last administered on 03/17/17 08:00; Start 03/17/17 at 08:00; Stop 03/17/17 at 08:01; Status DC Iohexol (Omnipaque 240 Mg/ml) 50 ml 1X ONCE PO Last administered on 03/17/17 08:00; Start 03/17/17 at 08:00; Stop 03/17/17 at 08:01; Status DC Info (Do NOT chart on this entry -- for MONITORING) 1 each PRN DAILY PRN MC SEE COMMENTS; Start 03/17/17 at 07:45; Stop 03/19/17 at 07:44; Status DC Sodium Chloride 1,000 ml @ 1,000 mls/hr 1X ONCE IV Last administered on 08:00; Start 03/17/17 at 08:00; Stop 03/17/17 at 08:59; Status DC Vancomycin HCl (Vanco Per Pharmacy) 1 each PRN DAILY PRN MC SEE COMMENTS Last administered on 03/18/17 14:24; Start 03/17/17 at 08:00; Stop 03/19/17 at 11:10 ; Status DC Fluconazole/ Sodium Chloride 200 ml @ 100 mls/hr Q24H IV Last administered on 03/21/17 08:07; Start 03/17/17 at 09:00; Stop 03/21/17 at 09:24; Status DC Vancomycin HCl 2 gm/Sodium Chloride 500 ml @ 250 mls/hr 1X ONCE IV Last administered on 03/17/17 13:08; Start 03/17/17 at 09:00; Stop 03/17/17 at 10:59 ; Status DC Acetaminophen (Tylenol) 650 mg PRN Q6HRS PRN PO FEVER Last administered on 16:34; Start 03/17/17 at 08:15 Vancomycin HCl 2 gm/Sodium Chloride 500 ml @ 250 mls/hr Q8H IV Last administered on 03/19/17 05:41; Start 03/17/17 at 22:00; Stop 03/19/17 at 11:10 ; Status DC Vancomycin HCl 1 each 1X ONCE MC ; Start 03/18/17 at 13:30; Stop 03/18/17 at 13 :31; Status DC Calcium Carbonate/ Glycine (Tums) 1,000 mg PRN Q4HRS PRN PO INDIGESTION Last administered on 03/17/17 23:57; Start 03/17/17 at 23:45 Potassium Chloride (Klor-Con) 40 meq 1X ONCE PO Last administered on 14:14; Start 03/18/17 at 12:45; Stop 03/18/17 at 12:46; Status DC Vancomycin HCl 1 each 1X ONCE MC ; Start 03/19/17 at 13:30; Stop 03/19/17 at 13 :30; Status DC Sodium Chloride 1,000 ml @ 1,000 mls/hr 1X ONCE IV Last administered on 14:28; Start 03/19/17 at 12:15; Stop 03/19/17 at 13:14; Status DC Pantoprazole Sodium (Protonix) 40 mg BIDAC PO Last administered on 03/25/17 08:31; Start 03/20/17 at 16:30; Stop 03/25/17 at 16:05; Status DC Simethicone (Gas-X) 80 mg PRN AFTMEALHC PRN PO GAS / BLOATING Last administered on 03/22/17 08:55; Start 03/20/17 at 11:15 Al Hydroxide/Mg Hydroxide (Mylanta Plus Xs) 30 ml PRN Q2HR PRN PO HEARTBURN / GAS; Start 03/20/17 at 11:15 Enoxaparin Sodium (Lovenox 40mg Syringe) 40 mg DAILY SQ Last administered on 08:09; Start 03/21/17 at 09:00; Stop 03/22/17 at 12:42; Status DC Fluconazole/ Sodium Chloride 100 ml @ 100 mls/hr Q24H IV ; Start 03/22/17 at 09:00; Stop 03/22/17 at 09:00; Status DC Piperacillin Sod/ Tazobactam Sod 3.375 gm/Sodium Chloride 50 ml @ 100 mls/hr Q12HR IV ; Start 03/21/17 at 21:00; Stop 03/21/17 at 21:00; Status DC Fluconazole/ Sodium Chloride 100 ml @ 100 mls/hr Q24H IV Last administered on 03/22/17 09:30; Start 03/22/17 at 09:00; Stop 03/23/17 at 10:05; Status DC Piperacillin Sod/ Tazobactam Sod 2.25 gm/Sodium Chloride 50 ml @ 100 mls/hr Q6HRS IV Last administered on 03/23/17 05:58; Start 03/21/17 at 12:00; Stop 03/23/17 at 10:05; Status DC Ondansetron HCl (Zofran) 8 mg PRN Q8HRS PRN IV NAUESA, 1ST CHOICE Last administered on 03/25/17 06:17; Start 03/22/17 at 09:15 Prochlorperazine Edisylate (Compazine) 10 mg PRN Q8HRS PRN IV NAUSEA/VOMITING - 2nd choice Last administered on 03/25/17 10:23; Start 03/22/17 at 09:15 Amino Acids/ Glycerin/ Electrolytes 1,000 ml @ 80 mls/hr [id number] IV Last administered on 03/27/17 06:09; Start 03/22/17 at 11:45; Stop 03/27/17 at 21 :59; Status DC Heparin Sodium (Porcine) (Heparin Sq) 5,000 unit Q8HRS SQ Last administered on 03/25/17 06:07; Start 03/22/17 at 14:00; Stop 03/25/17 at 08:45; Status DC Loperamide HCl (Imodium) 2 mg PRN Q15MIN PRN PO DIARRHEA; Start 03/23/17 at 08 :00 Amoxicillin/ Clavulanate Potassium (Augmentin 500/ 125mg) 1 tab BID PO Last administered on 03/25/17 08:31; Start 03/23/17 at 10:30; Stop 03/25/17 at 14 :03; Status DC Promethazine HCl (Phenergan) 25 mg PRN Q6HRS PRN GA NAUSEA/VOMITING; Start 05/28 at 15:15 Furosemide (Lasix) 80 mg 1X ONCE IVP Last administered on 03/24/17 12:13; Start 03/24/17 at 11:30; Stop 03/24/17 at 11:31; Status DC Iohexol (Omnipaque 240 Mg/ml) 50 ml 1X ONCE PO Last administered on 09:30; Start 03/25/17 at 09:30; Stop 03/25/17 at 09:31; Status DC Iohexol (Omnipaque 240 Mg/ml) 50 ml 1X ONCE PO Last administered on 12:32; Start 03/25/17 at 12:30; Stop 03/25/17 at 12:31; Status DC Lorazepam (Ativan) 1 mg 1X ONCE IV Last administered on 03/25/17 13:40; Start 03/25/17 at 14:00; Stop 03/25/17 at 14:01; Status DC Piperacillin Sod/ Tazobactam Sod 2.25 gm/Sodium Chloride 50 ml @ 100 mls/hr Q8HRS IV Last administered on 03/28/17 05:39; Start 03/25/17 at 15:00 Levetiracetam 500 mg/Sodium Chloride 100 ml @ 400 mls/hr Q12HR IV ; Start at 15:00; Stop 03/25/17 at 15:00; Status DC Lorazepam (Ativan) 2 mg PRN Q1HR PRN IV SEIZURE Last administered on 14:30; Start 03/25/17 at 14:15; Stop 03/25/17 at 15:27; Status DC Levetiracetam 750 mg/Sodium Chloride 107.5 ml @ 400 mls/hr Q12HR IV Last administered on 03/28/17 09:11; Start 03/25/17 at 15:00 Digoxin (Lanoxin) 500 mcg 1X ONCE IV Last administered on 03/25/17 14:34; Start 03/25/17 at 14:30; Stop 03/25/17 at 14:31; Status DC Norepinephrine Bitartrate 250 ml @ 0 mls/hr CONT PRN IV SEE I/O RECORD Last administered on 03/25/17 21:53; Start 03/25/17 at 14:30 Sodium Chloride 1,000 ml @ 1,000 mls/hr 1X ONCE IV Last administered on 03/25 15:38; Start 03/25/17 at 15:00; Stop 03/25/17 at 15:59; Status DC Lorazepam (Ativan) 2 mg PRN Q4HRS PRN IV SEIZURE Last administered on 15:55; Start 03/25/17 at 15:30 Propofol 100 ml @ As Directed STK-MED ONCE IV ; Start 03/25/17 at 15:28; Stop 03/25/17 at 15:29; Status DC Propofol 100 ml @ 0 mls/hr CONT PRN IV SEE I/O RECORD Last administered on 11:00; Start 03/25/17 at 15:45 Sodium Bicarbonate 150 meq 1X ONCE IV Last administered on 03/25/17 15:43; Start 03/25/17 at 16:00; Stop 03/25/17 at 16:01; Status DC Adenosine (Adenocard) 6 mg 1X ONCE IV Last administered on 03/25/17 15:42; Start 03/25/17 at 16:15; Stop 03/25/17 at 16:16; Status DC Adenosine (Adenocard) 12 mg 1X ONCE IV Last administered on 03/25/17 15:48; Start 03/25/17 at 16:00; Stop 03/25/17 at 16:01; Status DC Midazolam HCl (Versed) 5 mg 1X ONCE IV Last administered on 03/25/17 15:48; Start 03/25/17 at 16:00; Stop 03/25/17 at 16:01; Status DC Pantoprazole Sodium (Protonix Vial) 40 mg BID IVP Last administered on 09:11; Start 03/25/17 at 21:00 Sodium Chloride 1,000 ml @ 1,000 mls/hr Q1H PRN IV hypotension; Start at 16:30; Stop 03/25/17 at 22:29; Status DC Sodium Chloride (Normal Saline Flush) 10 ml 1X PRN PRN IV AP catheter pack; Start 03/25/17 at 16:30; Stop 03/26/17 at 08:54; Status DC Sodium Chloride (Normal Saline Flush) 10 ml 1X PRN PRN IV 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; Start 03/25/17 at 16:30; Stop 03/26/17 at 08:54; Status DC Sodium Chloride 1,000 ml @ 400 mls/hr Q2H30M PRN IV PATENCY; Start 03/25/17 at 16:30; Stop 03/26/17 at 04:29; Status DC Info (PHARMACY MONITORING -- do not chart) 1 each PRN DAILY PRN MC SEE COMMENTS ; Start 03/25/17 at 16:30 Info (PHARMACY MONITORING -- do not chart) 1 each PRN DAILY PRN MC SEE COMMENTS ; Start 03/25/17 at 16:30; Status UNV Acetaminophen (Tylenol) 650 mg PRN Q6HRS PRN PEG MILD PAIN / TEMP Last administered on 03/25/17t 18:44; Start 03/25/17 at 18:30 Fentanyl Citrate 30 ml @ 0 mls/hr CONT PRN PRN IV PROTOCOL; Start 03/25/17 at 19:15 Sodium Chloride 1,000 ml @ 1,000 mls/hr Q1H PRN IV hypotension; Start at 08:46; Stop 03/26/17 at 14:45; Status DC Sodium Chloride (Normal Saline Flush) 10 ml 1X PRN PRN IV AP catheter pack; Start 03/26/17 at 09:00; Stop 03/27/17 at 08:59; Status DC Sodium Chloride (Normal Saline Flush) 10 ml 1X PRN PRN IV 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; Start 03/26/17 at 09:00; Stop 03/27/17 at 08:59; Status DC Sodium Chloride 1,000 ml @ 400 mls/hr Q2H30M PRN IV PATENCY; Start 03/26/17 at 08:46; Stop 03/26/17 at 20:45; Status DC Info (PHARMACY MONITORING -- do not chart) 1 each PRN DAILY PRN MC SEE COMMENTS ; Start 03/26/17 at 09:00; Status UNV Info (PHARMACY MONITORING -- do not chart) 1 each PRN DAILY PRN MC SEE COMMENTS ; Start 03/26/17 at 09:00; Status UNV Levothyroxine Sodium 15 mcg/ Sodium Chloride 5 ml @ 100 mls/hr DAILY IVP Last administered on 03/28/17 09:11; Start 03/26/17 at 14:00 Chlorhexidine Gluconate (Peridex) 15 ml BID MM Last administered on 03/27/17 07:45; Start 03/26/17 at 21:00; Stop 03/27/17 at 20:57; Status DC Heparin Sodium (Porcine) (Heparin Sq) 5,000 unit BID SQ Last administered on 09:12; Start 03/26/17 at 21:00 Heparin Sodium (Porcine) (Heparin Sodium) 10,000 unit STK-MED ONCE .ROUTE ; Start 03/27/17 at 08:15; Stop 03/27/17 at 08:16; Status DC Lidocaine/ Epinephrine (Xylocaine 1%-Epi 1:100,000) 20 ml STK-MED ONCE .ROUTE ; Start 03/27/17 at 08:15; Stop 03/27/17 at 08:16; Status DC Heparin Sodium/ Sodium Chloride 500 ml @ As Directed STK-MED ONCE .ROUTE ; Start 03/27/17 at 08:15; Stop 03/27/17 at 08:16; Status DC Heparin Sodium/ Sodium Chloride 1,000 unit 1X ONCE IART Last administered on 03/27/17 10:53; Start 03/27/17 at 10:30; Stop 03/27/17 at 10:45; Status DC Lidocaine/ Epinephrine (Xylocaine 1%-Epi 1:100,000) 20 ml 1X ONCE INJ Last administered on 03/27/17 10:53; Start 03/27/17 at 10:30; Stop 03/27/17 at 10 :45; Status DC Heparin Sodium (Porcine) (Heparin Sodium) 3,800 unit 1X ONCE INT CAT Last administered on 03/27/17 10:54; Start 03/27/17 at 10:30; Stop 03/27/17 at 10 :45; Status DC Darbepoetin Jean (Aranesp) 60 mcg [id number] SQ Last administered on 03/27/17 22:38; Start 03/27/17 at 21:00 Info 1 each PRN DAILY PRN MC SEE COMMENTS Last administered on 03/27/17 14:18 ; Start 03/27/17 at 13:45 Sodium Chloride 90 meq/Potassium Chloride 50 meq/ Potassium Phosphate 13.6 mmol/ Magnesium Sulfate 10 meq/ Calcium Gluconate 10 meq/ Multivitamins 10 ml/Chromium / Copper/Manganese/ Seleni/Zn 1 ml/ Total Parenteral Nutrition/Amino Acids/ Dextrose/ Fat Emulsion Intravenous 1,512 ml @ 63 mls/hr TPN CONT IV Last administered on 03/27/17 22:37; Start 03/27/17 at 22:00; Stop 03/28/17 at 21 :59 Adenosine (Adenocard) 18 mg STK-MED ONCE IV ; Start 03/26/17 at 12:00; Stop at 14:50; Status DC Midazolam HCl (Versed) 5 mg STK-MED ONCE .ROUTE ; Start 03/26/17 at 12:00; Stop 03/27/17 at 14:50; Status DC Sodium Bicarbonate 150 meq STK-MED ONCE .ROUTE ; Start 03/26/17 at 12:00; Stop 03/27/17 at 14:50; Status DC Morphine Sulfate 2 mg PRN Q2HR PRN IV PAIN Last administered on 03/27/17 15: 43; Start 03/27/17 at 15:30 Midazolam HCl (Versed) 5 mg STK-MED ONCE .ROUTE ; Start 03/25/17 at 12:00; Stop 03/27/17 at 15:30; Status DC Vecuronium [place] (Norcuron Bolus) 10 mg STK-MED ONCE IV ; Start 03/25/17 at 12:00; Stop 03/27/17 at 15:30; Status DC Albumin Human 200 ml @ 200 mls/hr 1X PRN PRN IV Hypotension; Start 03/27/17 at 19:30; Stop 03/28/17 at 01:29; Status DC Sodium Chloride (Normal Saline Flush) 10 ml 1X PRN PRN IV AP catheter pack; Start 03/27/17 at 19:30; Stop 03/28/17 at 19:29 Sodium Chloride (Normal Saline Flush) 10 ml 1X PRN PRN IV 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; Start 03/27/17 at 19:30; Stop 03/28/17 at 19:29 Info (PHARMACY MONITORING -- do not chart) 1 each PRN DAILY PRN MC SEE COMMENTS ; Start 03/27/17 at 19:30; Status UNV Info (PHARMACY MONITORING -- do not chart) 1 each PRN DAILY PRN MC SEE COMMENTS ; Start 03/27/17 at 19:30; Status UNV Active Scripts Active Reported Multivitamins (Multivitamin) 1 Each Tablet 1 Tab PO DAILY Omeprazole 20 Mg Capsule.dr 1 Cap PO DAILY Vitals/I & O Vital Sign - Last 24 Hours 03/27/17 03/27/17 03/27/17 03/27/17 12:20 13:00 13:05 14:00 Pulse 98 96 Resp 20 15 B/P (MAP) 140/80 (100) 132/74 (93) Pulse Ox 94 94 O2 Delivery Ventilator Nasal Cannula Nasal Cannula Nasal Cannula O2 Flow Rate 1.0 3.0 1.0 03/27/17 03/27/17 03/27/17 03/27/17 15:10 15:31 15:43 16:00 Pulse 91 Resp 18 21 14 20 B/P (MAP) 136/71 (92) Pulse Ox 97 99 99 O2 Delivery Nasal Cannula Nasal Cannula Nasal Cannula Nasal Cannula O2 Flow Rate 1.0 1.0 2.0 1.0 03/27/17 03/27/17 03/27/17 03/27/17 16:00 16:00 17:00 18:00 Temp 98.4 98.4 Pulse 92 90 96 Resp 14 20 25 B/P (MAP) 111/65 (80) 108/77 (87) 117/82 (94) Pulse Ox 97 98 98 O2 Delivery Nasal Cannula Nasal Cannula Nasal Cannula Nasal Cannula O2 Flow Rate 1.0 1.0 1.0 1.0 03/27/17 03/27/17 03/27/17 03/27/17 19:00 20:00 20:00 22:00 Temp 98.5 98.5 Pulse 86 88 98 Resp 22 23 24 B/P (MAP) 113/75 (88) 123/84 (97) 110/76 (87) Pulse Ox 98 99 98 O2 Delivery Nasal Cannula Nasal Cannula Nasal Cannula Nasal Cannula O2 Flow Rate 1.0 2.0 1.0 2.0 03/27/17 03/28/17 03/28/17 03/28/17 23:00 00:00 00:00 01:00 Pulse 97 99 102 Resp 26 32 20 B/P (MAP) 100/81 (87) 108/81 (90) 124/71 (88) Pulse Ox 98 98 98 O2 Delivery Nasal Cannula Nasal Cannula Nasal Cannula Nasal Cannula O2 Flow Rate 2.0 2.0 2.0 2.0 03/28/17 03/28/17 03/28/17 03/28/17 02:00 03:00 04:00 04:00 Temp 98.8 98.8 Pulse 101 93 98 Resp 20 20 20 B/P (MAP) 107/74 (85) 103/75 (84) 114/80 (91) Pulse Ox 98 99 94 O2 Delivery Nasal Cannula Nasal Cannula Nasal Cannula Room Air O2 Flow Rate 2.0 2.0 2.0 2.0 03/28/17 03/28/17 03/28/17 03/28/17 05:00 06:00 07:13 08:00 Temp 99.0 99.0 Pulse 94 89 89 96 Resp 20 17 21 29 B/P (MAP) 99/65 (76) 112/76 (88) 106/66 (79) 109/83 (92) Pulse Ox 99 99 96 96 O2 Delivery Room Air Nasal Cannula Nasal Cannula Nasal Cannula O2 Flow Rate 2.0 2.0 2.0 03/28/17 03/28/17 03/28/17 08:00 09:00 10:00 Pulse 100 112 Resp 26 11 B/P (MAP) 117/73 (88) 119/89 (99) Pulse Ox 96 93 O2 Delivery Nasal Cannula Nasal Cannula Nasal Cannula O2 Flow Rate 2.0 2.0 2.0 Intake and Output 03/28/17 03/28/17 03/29/17 15:00 23:00 07:00 Output Total 1050 ml Balance -1050 ml FLAKO WATT III DO Mar 28, 2017 12:14
[2017-03-28] MEDS: TPN PER PHARMACY MC PRN (13:10)
--- NOTE | 2017-03-28 14:13 | PDOC ---
PULMONARY PROGRESS NOTES Subjective [id number] up in chair no resp complaints Vitals Vital Signs Date Time Temp Pulse Resp B/P (MAP) Pulse Ox O2 Delivery O2 Flow Rate FiO2 03/28/17 12:00 98.5 98 20 126/85 (99) 96 Nasal Cannula 2.0 98.5 ROS: No Nausea, No Chest Pain, No Abdominal Pain, No Increase Cough General: Alert Lungs: Clear Cardiovascular: S1, S2 Abdomen: Soft Neuro Exam: Alert Extremities: No Edema Skin: Warm Labs Laboratory Tests Test 03/26/17 14:25 03/27/17 06:10 03/27/17 08:06 03/27/17 08:45 O2 Saturation 98 % (92-99) 98 % (92-99) Arterial Blood pH 7.48 (7.35-7.45) 7.46 (7.35-7.45) Arterial Blood pCO2 at Patient Temp 34 mmHg (35-46) 37 mmHg (35-46) Arterial Blood pO2 at Patient Temp 115 mmHg (85-108) 119 mmHg (85-108) Arterial Blood HCO3 24 mmol/L (21-28) 26 mmol/L (21-28) Arterial Blood Base Excess 1 mmol/L (-3-3) 2 mmol/L (-3-3) FiO2 40 40 White Blood Count 10.1 x10^3/uL (4.0-11.0) Red Blood Count 3.30 x10^6/uL (3.50-5.40) Hemoglobin 9.9 g/dL (12.0-15.5) Hematocrit 29.4 % (36.0-47.0) Mean Corpuscular Volume 89 fL (79-100) Mean Corpuscular Hemoglobin 30 pg (25-35) Mean Corpuscular Hemoglobin Concent 34 g/dL (31-37) Red Cell Distribution Width 15.6 % (11.5-14.5) Platelet Count 284 x10^3/uL (140-400) Neutrophils (%) (Auto) 69 % (31-73) Lymphocytes (%) (Auto) 19 % (24-48) Monocytes (%) (Auto) 7 % (0-9) Eosinophils (%) (Auto) 4 % (0-3) Basophils (%) (Auto) 1 % (0-3) Neutrophils # (Auto) 7.0 x10^3uL (1.8-7.7) Lymphocytes # (Auto) 1.9 x10^3/uL (1.0-4.8) Monocytes # (Auto) 0.7 x10^3/uL (0.0-1.1) Eosinophils # (Auto) 0.4 x10^3/uL (0.0-0.7) Basophils # (Auto) 0.1 x10^3/uL (0.0-0.2) Sodium Level 141 mmol/L (136-145) Potassium Level 3.7 mmol/L (3.5-5.1) Chloride Level 106 mmol/L (98-107) Carbon Dioxide Level 26 mmol/L (21-32) Anion Gap 9 (6-14) Blood Urea Nitrogen 31 mg/dL (7-20) Creatinine 4.4 mg/dL (0.6-1.0) Estimated GFR (Cockcroft-Gault) 11.9 BUN/Creatinine Ratio 7 (6-20) Glucose Level 94 mg/dL (70-99) Calcium Level 8.6 mg/dL (8.5-10.1) Phosphorus Level 3.3 mg/dL (2.6-4.7) Total Bilirubin 0.3 mg/dL (0.2-1.0) Aspartate Amino Transf (AST/SGOT) 27 U/L (15-37) Alanine Aminotransferase (ALT/SGPT) 32 U/L (14-59) Alkaline Phosphatase 54 U/L (46-116) Creatine Kinase 29 U/L (26-192) Total Protein 5.7 g/dL (6.4-8.2) Albumin 1.7 g/dL (3.4-5.0) Albumin/Globulin Ratio 0.4 (1.0-1.7) Prothrombin Time 15.0 SEC (11.7-14.0) Prothromb Time International Ratio 1.3 (0.8-1.1) Activated Partial Thromboplast Time 27 SEC (24-38) Test 03/27/17 12:45 03/28/17 05:00 O2 Saturation 94 % (92-99) Arterial Blood pH 7.46 (7.35-7.45) Arterial Blood pCO2 at Patient Temp 35 mmHg (35-46) Arterial Blood pO2 at Patient Temp 72 mmHg (85-108) Arterial Blood HCO3 24 mmol/L (21-28) Arterial Blood Base Excess 1 mmol/L (-3-3) FiO2 40 White Blood Count 11.7 x10^3/uL (4.0-11.0) Red Blood Count 3.34 x10^6/uL (3.50-5.40) Hemoglobin 10.1 g/dL (12.0-15.5) Hematocrit 29.9 % (36.0-47.0) Mean Corpuscular Volume 90 fL (79-100) Mean Corpuscular Hemoglobin 30 pg (25-35) Mean Corpuscular Hemoglobin Concent 34 g/dL (31-37) Red Cell Distribution Width 15.6 % (11.5-14.5) Platelet Count 301 x10^3/uL (140-400) Neutrophils (%) (Auto) 74 % (31-73) Lymphocytes (%) (Auto) 17 % (24-48) Monocytes (%) (Auto) 6 % (0-9) Eosinophils (%) (Auto) 2 % (0-3) Basophils (%) (Auto) 1 % (0-3) Neutrophils # (Auto) 8.6 x10^3uL (1.8-7.7) Lymphocytes # (Auto) 2.0 x10^3/uL (1.0-4.8) Monocytes # (Auto) 0.7 x10^3/uL (0.0-1.1) Eosinophils # (Auto) 0.2 x10^3/uL (0.0-0.7) Basophils # (Auto) 0.1 x10^3/uL (0.0-0.2) Sodium Level 145 mmol/L (136-145) Potassium Level 3.7 mmol/L (3.5-5.1) Chloride Level 107 mmol/L (98-107) Carbon Dioxide Level 31 mmol/L (21-32) Anion Gap 7 (6-14) Blood Urea Nitrogen 21 mg/dL (7-20) Creatinine 2.9 mg/dL (0.6-1.0) Estimated GFR (Cockcroft-Gault) 19.3 Glucose Level 110 mg/dL (70-99) Glucose (Fingerstick) 111 mg/dL (70-99) Calcium Level 8.9 mg/dL (8.5-10.1) Phosphorus Level 3.7 mg/dL (2.6-4.7) Magnesium Level 1.9 mg/dL (1.8-2.4) Laboratory Tests Test 03/28/17 05:00 White Blood Count 11.7 x10^3/uL (4.0-11.0) Red Blood Count 3.34 x10^6/uL (3.50-5.40) Hemoglobin 10.1 g/dL (12.0-15.5) Hematocrit 29.9 % (36.0-47.0) Mean Corpuscular Volume 90 fL (79-100) Mean Corpuscular Hemoglobin 30 pg (25-35) Mean Corpuscular Hemoglobin Concent 34 g/dL (31-37) Red Cell Distribution Width 15.6 % (11.5-14.5) Platelet Count 301 x10^3/uL (140-400) Neutrophils (%) (Auto) 74 % (31-73) Lymphocytes (%) (Auto) 17 % (24-48) Monocytes (%) (Auto) 6 % (0-9) Eosinophils (%) (Auto) 2 % (0-3) Basophils (%) (Auto) 1 % (0-3) Neutrophils # (Auto) 8.6 x10^3uL (1.8-7.7) Lymphocytes # (Auto) 2.0 x10^3/uL (1.0-4.8) Monocytes # (Auto) 0.7 x10^3/uL (0.0-1.1) Eosinophils # (Auto) 0.2 x10^3/uL (0.0-0.7) Basophils # (Auto) 0.1 x10^3/uL (0.0-0.2) Sodium Level 145 mmol/L (136-145) Potassium Level 3.7 mmol/L (3.5-5.1) Chloride Level 107 mmol/L (98-107) Carbon Dioxide Level 31 mmol/L (21-32) Anion Gap 7 (6-14) Blood Urea Nitrogen 21 mg/dL (7-20) Creatinine 2.9 mg/dL (0.6-1.0) Estimated GFR (Cockcroft-Gault) 19.3 Glucose Level 110 mg/dL (70-99) Glucose (Fingerstick) 111 mg/dL (70-99) Calcium Level 8.9 mg/dL (8.5-10.1) Phosphorus Level 3.7 mg/dL (2.6-4.7) Magnesium Level 1.9 mg/dL (1.8-2.4) Medications Active Scripts Medications Dose Route/Sig Max Daily Dose Days Date Category Multivitamins (Multivitamin) 1 Each Tablet 1 Tab PO DAILY 03/15/17 Reported Omeprazole 20 Mg Capsule.dr 1 Cap PO DAILY 03/15/17 Reported Impression . IMPRESSION: 1. Acute respiratory failure secondary to seizure 2. Seizure? etiology. 3. Appendicitis status post appendectomy on March 15. 4. Gastric sleeve surgery in February 2017. 5. Acute kidney injury. 6. Encephalopathy. 7. Obesity, probable obstructive sleep apnea-hypopnea syndrome. 8. Gastroesophageal reflux disease. CXR IMPRESSION: ET tube tip is located 3.5 cm above the level of the karin. NG tube is in place and the tube is seen extending into at least the proximal body of the stomach. Right upper extremity PICC line tip remains within the mid SVC. Decreased inspiration with right lung base atelectasis is seen. The left lung base infiltrate and/or left-sided pleural effusion seen previously has improved. No pulmonary edema or pneumothorax is seen. The heart size and pulmonary vasculature and mediastinum and both harry are unremarkable. Plan . EXTUBATED 03/27 CONTINUE SAME TRANSFER OUT OF ICU MAY NEED LTAC VS SNU FOLLOW NEURO D/W KAT BRADLEY MD Mar 28, 2017 14:13
--- NOTE | 2017-03-28 16:19 | RAD ---
MRI of the brain without contrast 03/28/2017 Clinical History: History of fever with new onset of seizures and mental status changes.. Technique: Unenhanced T1-weighted sagittal and axial and T2-weighted, FLAIR, gradient echo and diffusion-weighted axial images of the brain were obtained. Additionally thin section T2-weighted and FLAIR coronal images of the temporal lobes were obtained. Findings: Comparison is made to patient's CT scan of the head dated 03/25/2017. Images from the study are degraded by patient motion. The ventricles and sulci are within normal limits in size and configuration. No area of significant abnormal signal intensity is seen involving brain parenchyma. No extra-axial fluid collection is seen. There is no MRI evidence of acute ischemia/infarction. Images through the temporal lobes are within normal limits. The paranasal sinuses are essentially clear. There are minimal bilateral mastoid effusions, right greater than left. Normal flow voids are seen within the major vascular structures surrounding the brain parenchyma. Impression: Essentially negative study. Electronically signed by: Art Ch MD (03/28/2017 4:16 PM) [id number]
[2017-03-28] MEDS ORDERED: AMINO ACIDS IV SCH ×10 (22:00)
[2017-03-28] MEDS ORDERED: [UNRECOGNIZED DRUG - OTHER] IV SCH ×10 (22:00)
[2017-03-28] MEDS ORDERED: DEXTROSE 70% IV SCH ×10 (22:00)
[2017-03-28] MEDS ORDERED: TOTAL PARENTERAL NUTRITION IV SCH ×10 (22:00)
[2017-03-29] VITALS (13 sets, daily range): BP systolic 115–184; BP diastolic 69–109
[2017-03-29] MEDS: PIPERACILLIN/TAZOBACTAM 2.25 GM in IV NORMAL SALINE 50ML 50 ML IV SCH ×2 (05:39→16:13)
[2017-03-29 05:51] LABS: BASO # 0.1 x10^3/uL (0.0-0.2); BASO % 1 % (0-3); EOS % 1 % (0-3); HEMATOCRIT 29.3 % (36.0-47.0); HEMOGLOBIN 9.7 g/dL (12.0-15.5); LYMPH # 1.6 x10^3/uL (1.0-4.8); LYMPH % 14 % (24-48); MEAN CORPUSCULAR HEMOGLOBIN 30 pg (25-35); MEAN CORPUSCULAR HGB CONC 33 g/dL (31-37); MEAN CORPUSCULAR VOLUME 90 fL (79-100); MONO % 6 % (0-9); NEUT % 78 % (31-73); PLATELET COUNT 335 x10^3/uL (140-400); RED BLOOD COUNT 3.27 x10^6/uL (3.50-5.40); RED CELL DISTRIBUTION WIDTH 15.9 % (11.5-14.5); WHITE BLOOD COUNT 11.4 x10^3/uL (4.0-11.0)
[2017-03-29 06:07] LABS: MAGNESIUM 2.1 mg/dL (1.8-2.4); PHOSPHORUS 4.3 mg/dL (2.6-4.7)
[2017-03-29 06:10] LABS: CALCIUM 8.7 mg/dL (8.5-10.1); CREATININE 3.3 mg/dL (0.6-1.0); GFR 16.6
--- NOTE | 2017-03-29 08:05 | PDOC ---
Infectious Disease Note Subjective Subjective Doing ok Min pain ROS ROS GEN: Denies fevers, chills, sweats HEENT: Denies blurred vision, sore throat CV: Denies chest pain RESP: Denies cough GI: Denies n/v/d NEURO: Denies confusion, dizziness MSK: Denies weakness, joint pain/swelling Vital Sign Vital Signs Vital Signs Date Time Temp Pulse Resp B/P (MAP) Pulse Ox O2 Delivery O2 Flow Rate FiO2 03/29/17 04:03 98.6 117 22 132/96 (108) NonRebreather Mask 40.0 98.6 03/28/17 23:11 94 Physical Exam PHYSICAL EXAM GENERAL: NAD, Alert. 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 right HD cath Labs Lab Laboratory Tests Test 03/29/17 04:00 03/29/17 05:43 White Blood Count 11.4 x10^3/uL (4.0-11.0) Red Blood Count 3.27 x10^6/uL (3.50-5.40) Hemoglobin 9.7 g/dL (12.0-15.5) Hematocrit 29.3 % (36.0-47.0) Mean Corpuscular Volume 90 fL (79-100) Mean Corpuscular Hemoglobin 30 pg (25-35) Mean Corpuscular Hemoglobin Concent 33 g/dL (31-37) Red Cell Distribution Width 15.9 % (11.5-14.5) Platelet Count 335 x10^3/uL (140-400) Neutrophils (%) (Auto) 78 % (31-73) Lymphocytes (%) (Auto) 14 % (24-48) Monocytes (%) (Auto) 6 % (0-9) Eosinophils (%) (Auto) 1 % (0-3) Basophils (%) (Auto) 1 % (0-3) Neutrophils # (Auto) 8.9 x10^3uL (1.8-7.7) Lymphocytes # (Auto) 1.6 x10^3/uL (1.0-4.8) Monocytes # (Auto) 0.7 x10^3/uL (0.0-1.1) Eosinophils # (Auto) 0.2 x10^3/uL (0.0-0.7) Basophils # (Auto) 0.1 x10^3/uL (0.0-0.2) Sodium Level 150 mmol/L (136-145) Potassium Level 4.0 mmol/L (3.5-5.1) Chloride Level 110 mmol/L (98-107) Carbon Dioxide Level 31 mmol/L (21-32) Anion Gap 9 (6-14) Blood Urea Nitrogen 26 mg/dL (7-20) Creatinine 3.3 mg/dL (0.6-1.0) Estimated GFR (Cockcroft-Gault) 16.6 Glucose Level 118 mg/dL (70-99) Calcium Level 8.7 mg/dL (8.5-10.1) Phosphorus Level 4.3 mg/dL (2.6-4.7) Magnesium Level 2.1 mg/dL (1.8-2.4) Triglycerides Level 174 mg/dL (0-150) Glucose (Fingerstick) 130 mg/dL (70-99) Objective Assessment Hypoxia on Heparin - ? Apnea Leukocytosis - stable Acute encephalopathy - improved Seizure s/p vomiting 03/25. now on Keppra, CK 26, CT neg Acute respiratory failure s/p intubation, 03/25. Now extubated 03/27 Hypothyroid -d/w nursing 03/26 EMILY now on dialysis Loose stools Appendicitis s/p appendectomy 03/15 S/p gastric sleeve February 2017 Plan Plan of Care Cont Zosyn for possible aspiration CXR this am Monitor labs/temp. Clinically looks comfortable Supportive care GENE FRAZIER MD Mar 29, 2017 08:05
[2017-03-29] MEDS: DOCUSATE SODIUM 100 MG CAPSULE. PO SCH ×2 (09:00→21:00)
[2017-03-29] MEDS: MULTIVITAMIN with MINERAL TABLET. PO SCH (09:00)
--- NOTE | 2017-03-29 09:32 | PDOC ---
SURGICAL PROGRESS NOTE Subjective Pt appears brighter, ruba some PO, pain well controlled Vital Signs Vital Signs Date Time Temp Pulse Resp B/P (MAP) Pulse Ox O2 Delivery O2 Flow Rate FiO2 03/29/17 07:00 97.5 103 22 129/69 (89) NonRebreather Mask 40.0 97.5 03/28/17 23:11 94 General: Alert, Oriented X3, Cooperative, No acute distress Abdomen: Soft, No tenderness Labs Laboratory Tests Test 03/27/17 12:45 03/28/17 05:00 03/29/17 04:00 03/29/17 05:43 O2 Saturation 94 % (92-99) Arterial Blood pH 7.46 (7.35-7.45) Arterial Blood pCO2 at Patient Temp 35 mmHg (35-46) Arterial Blood pO2 at Patient Temp 72 mmHg (85-108) Arterial Blood HCO3 24 mmol/L (21-28) Arterial Blood Base Excess 1 mmol/L (-3-3) FiO2 40 White Blood Count 11.7 x10^3/uL (4.0-11.0) 11.4 x10^3/uL (4.0-11.0) Red Blood Count 3.34 x10^6/uL (3.50-5.40) 3.27 x10^6/uL (3.50-5.40) Hemoglobin 10.1 g/dL (12.0-15.5) 9.7 g/dL (12.0-15.5) Hematocrit 29.9 % (36.0-47.0) 29.3 % (36.0-47.0) Mean Corpuscular Volume 90 fL (79-100) 90 fL (79-100) Mean Corpuscular Hemoglobin 30 pg (25-35) 30 pg (25-35) Mean Corpuscular Hemoglobin Concent 34 g/dL (31-37) 33 g/dL (31-37) Red Cell Distribution Width 15.6 % (11.5-14.5) 15.9 % (11.5-14.5) Platelet Count 301 x10^3/uL (140-400) 335 x10^3/uL (140-400) Neutrophils (%) (Auto) 74 % (31-73) 78 % (31-73) Lymphocytes (%) (Auto) 17 % (24-48) 14 % (24-48) Monocytes (%) (Auto) 6 % (0-9) 6 % (0-9) Eosinophils (%) (Auto) 2 % (0-3) 1 % (0-3) Basophils (%) (Auto) 1 % (0-3) 1 % (0-3) Neutrophils # (Auto) 8.6 x10^3uL (1.8-7.7) 8.9 x10^3uL (1.8-7.7) Lymphocytes # (Auto) 2.0 x10^3/uL (1.0-4.8) 1.6 x10^3/uL (1.0-4.8) Monocytes # (Auto) 0.7 x10^3/uL (0.0-1.1) 0.7 x10^3/uL (0.0-1.1) Eosinophils # (Auto) 0.2 x10^3/uL (0.0-0.7) 0.2 x10^3/uL (0.0-0.7) Basophils # (Auto) 0.1 x10^3/uL (0.0-0.2) 0.1 x10^3/uL (0.0-0.2) Sodium Level 145 mmol/L (136-145) 150 mmol/L (136-145) Potassium Level 3.7 mmol/L (3.5-5.1) 4.0 mmol/L (3.5-5.1) Chloride Level 107 mmol/L (98-107) 110 mmol/L (98-107) Carbon Dioxide Level 31 mmol/L (21-32) 31 mmol/L (21-32) Anion Gap 7 (6-14) 9 (6-14) Blood Urea Nitrogen 21 mg/dL (7-20) 26 mg/dL (7-20) Creatinine 2.9 mg/dL (0.6-1.0) 3.3 mg/dL (0.6-1.0) Estimated GFR (Cockcroft-Gault) 19.3 16.6 Glucose Level 110 mg/dL (70-99) 118 mg/dL (70-99) Glucose (Fingerstick) 111 mg/dL (70-99) 130 mg/dL (70-99) Calcium Level 8.9 mg/dL (8.5-10.1) 8.7 mg/dL (8.5-10.1) Phosphorus Level 3.7 mg/dL (2.6-4.7) 4.3 mg/dL (2.6-4.7) Magnesium Level 1.9 mg/dL (1.8-2.4) 2.1 mg/dL (1.8-2.4) Triglycerides Level 174 mg/dL (0-150) Laboratory Tests Test 03/29/17 04:00 03/29/17 05:43 White Blood Count 11.4 x10^3/uL (4.0-11.0) Red Blood Count 3.27 x10^6/uL (3.50-5.40) Hemoglobin 9.7 g/dL (12.0-15.5) Hematocrit 29.3 % (36.0-47.0) Mean Corpuscular Volume 90 fL (79-100) Mean Corpuscular Hemoglobin 30 pg (25-35) Mean Corpuscular Hemoglobin Concent 33 g/dL (31-37) Red Cell Distribution Width 15.9 % (11.5-14.5) Platelet Count 335 x10^3/uL (140-400) Neutrophils (%) (Auto) 78 % (31-73) Lymphocytes (%) (Auto) 14 % (24-48) Monocytes (%) (Auto) 6 % (0-9) Eosinophils (%) (Auto) 1 % (0-3) Basophils (%) (Auto) 1 % (0-3) Neutrophils # (Auto) 8.9 x10^3uL (1.8-7.7) Lymphocytes # (Auto) 1.6 x10^3/uL (1.0-4.8) Monocytes # (Auto) 0.7 x10^3/uL (0.0-1.1) Eosinophils # (Auto) 0.2 x10^3/uL (0.0-0.7) Basophils # (Auto) 0.1 x10^3/uL (0.0-0.2) Sodium Level 150 mmol/L (136-145) Potassium Level 4.0 mmol/L (3.5-5.1) Chloride Level 110 mmol/L (98-107) Carbon Dioxide Level 31 mmol/L (21-32) Anion Gap 9 (6-14) Blood Urea Nitrogen 26 mg/dL (7-20) Creatinine 3.3 mg/dL (0.6-1.0) Estimated GFR (Cockcroft-Gault) 16.6 Glucose Level 118 mg/dL (70-99) Calcium Level 8.7 mg/dL (8.5-10.1) Phosphorus Level 4.3 mg/dL (2.6-4.7) Magnesium Level 2.1 mg/dL (1.8-2.4) Triglycerides Level 174 mg/dL (0-150) Glucose (Fingerstick) 130 mg/dL (70-99) Problem List s/p lap appendectomy cont supportive care d/w Dr. Lane appreciate consultants help Problems: POPPY TUBBS MD Mar 29, 2017 09:32
--- NOTE | 2017-03-29 10:21 | PDOC ---
PULMONARY PROGRESS NOTES Subjective [id number] MORE RESP DISTRESS TODAY Vitals Vital Signs Date Time Temp Pulse Resp B/P (MAP) Pulse Ox O2 Delivery O2 Flow Rate FiO2 03/29/17 09:43 92 BiPAP/CPAP 03/29/17 08:05 12.0 03/29/17 07:00 97.5 103 22 129/69 (89) 97.5 ROS: No Nausea, No Chest Pain, No Abdominal Pain, No Increase Cough General: Alert Lungs: Clear Cardiovascular: S1, S2 Abdomen: Soft Neuro Exam: Alert Extremities: No Edema Skin: Warm Labs Laboratory Tests Test 03/27/17 12:45 03/28/17 05:00 03/29/17 04:00 03/29/17 05:43 O2 Saturation 94 % (92-99) Arterial Blood pH 7.46 (7.35-7.45) Arterial Blood pCO2 at Patient Temp 35 mmHg (35-46) Arterial Blood pO2 at Patient Temp 72 mmHg (85-108) Arterial Blood HCO3 24 mmol/L (21-28) Arterial Blood Base Excess 1 mmol/L (-3-3) FiO2 40 White Blood Count 11.7 x10^3/uL (4.0-11.0) 11.4 x10^3/uL (4.0-11.0) Red Blood Count 3.34 x10^6/uL (3.50-5.40) 3.27 x10^6/uL (3.50-5.40) Hemoglobin 10.1 g/dL (12.0-15.5) 9.7 g/dL (12.0-15.5) Hematocrit 29.9 % (36.0-47.0) 29.3 % (36.0-47.0) Mean Corpuscular Volume 90 fL (79-100) 90 fL (79-100) Mean Corpuscular Hemoglobin 30 pg (25-35) 30 pg (25-35) Mean Corpuscular Hemoglobin Concent 34 g/dL (31-37) 33 g/dL (31-37) Red Cell Distribution Width 15.6 % (11.5-14.5) 15.9 % (11.5-14.5) Platelet Count 301 x10^3/uL (140-400) 335 x10^3/uL (140-400) Neutrophils (%) (Auto) 74 % (31-73) 78 % (31-73) Lymphocytes (%) (Auto) 17 % (24-48) 14 % (24-48) Monocytes (%) (Auto) 6 % (0-9) 6 % (0-9) Eosinophils (%) (Auto) 2 % (0-3) 1 % (0-3) Basophils (%) (Auto) 1 % (0-3) 1 % (0-3) Neutrophils # (Auto) 8.6 x10^3uL (1.8-7.7) 8.9 x10^3uL (1.8-7.7) Lymphocytes # (Auto) 2.0 x10^3/uL (1.0-4.8) 1.6 x10^3/uL (1.0-4.8) Monocytes # (Auto) 0.7 x10^3/uL (0.0-1.1) 0.7 x10^3/uL (0.0-1.1) Eosinophils # (Auto) 0.2 x10^3/uL (0.0-0.7) 0.2 x10^3/uL (0.0-0.7) Basophils # (Auto) 0.1 x10^3/uL (0.0-0.2) 0.1 x10^3/uL (0.0-0.2) Sodium Level 145 mmol/L (136-145) 150 mmol/L (136-145) Potassium Level 3.7 mmol/L (3.5-5.1) 4.0 mmol/L (3.5-5.1) Chloride Level 107 mmol/L (98-107) 110 mmol/L (98-107) Carbon Dioxide Level 31 mmol/L (21-32) 31 mmol/L (21-32) Anion Gap 7 (6-14) 9 (6-14) Blood Urea Nitrogen 21 mg/dL (7-20) 26 mg/dL (7-20) Creatinine 2.9 mg/dL (0.6-1.0) 3.3 mg/dL (0.6-1.0) Estimated GFR (Cockcroft-Gault) 19.3 16.6 Glucose Level 110 mg/dL (70-99) 118 mg/dL (70-99) Glucose (Fingerstick) 111 mg/dL (70-99) 130 mg/dL (70-99) Calcium Level 8.9 mg/dL (8.5-10.1) 8.7 mg/dL (8.5-10.1) Phosphorus Level 3.7 mg/dL (2.6-4.7) 4.3 mg/dL (2.6-4.7) Magnesium Level 1.9 mg/dL (1.8-2.4) 2.1 mg/dL (1.8-2.4) Triglycerides Level 174 mg/dL (0-150) Laboratory Tests Test 03/29/17 04:00 03/29/17 05:43 White Blood Count 11.4 x10^3/uL (4.0-11.0) Red Blood Count 3.27 x10^6/uL (3.50-5.40) Hemoglobin 9.7 g/dL (12.0-15.5) Hematocrit 29.3 % (36.0-47.0) Mean Corpuscular Volume 90 fL (79-100) Mean Corpuscular Hemoglobin 30 pg (25-35) Mean Corpuscular Hemoglobin Concent 33 g/dL (31-37) Red Cell Distribution Width 15.9 % (11.5-14.5) Platelet Count 335 x10^3/uL (140-400) Neutrophils (%) (Auto) 78 % (31-73) Lymphocytes (%) (Auto) 14 % (24-48) Monocytes (%) (Auto) 6 % (0-9) Eosinophils (%) (Auto) 1 % (0-3) Basophils (%) (Auto) 1 % (0-3) Neutrophils # (Auto) 8.9 x10^3uL (1.8-7.7) Lymphocytes # (Auto) 1.6 x10^3/uL (1.0-4.8) Monocytes # (Auto) 0.7 x10^3/uL (0.0-1.1) Eosinophils # (Auto) 0.2 x10^3/uL (0.0-0.7) Basophils # (Auto) 0.1 x10^3/uL (0.0-0.2) Sodium Level 150 mmol/L (136-145) Potassium Level 4.0 mmol/L (3.5-5.1) Chloride Level 110 mmol/L (98-107) Carbon Dioxide Level 31 mmol/L (21-32) Anion Gap 9 (6-14) Blood Urea Nitrogen 26 mg/dL (7-20) Creatinine 3.3 mg/dL (0.6-1.0) Estimated GFR (Cockcroft-Gault) 16.6 Glucose Level 118 mg/dL (70-99) Calcium Level 8.7 mg/dL (8.5-10.1) Phosphorus Level 4.3 mg/dL (2.6-4.7) Magnesium Level 2.1 mg/dL (1.8-2.4) Triglycerides Level 174 mg/dL (0-150) Glucose (Fingerstick) 130 mg/dL (70-99) Medications Active Scripts Medications Dose Route/Sig Max Daily Dose Days Date Category Multivitamins (Multivitamin) 1 Each Tablet 1 Tab PO DAILY 03/15/17 Reported Omeprazole 20 Mg Capsule.dr 1 Cap PO DAILY 03/15/17 Reported Impression . 1. Acute respiratory failure secondary to seizure 2. Seizure? etiology. 3. Appendicitis status post appendectomy on March 15. 4. Gastric sleeve surgery in February 2017. 5. Acute kidney injury. 6. Encephalopathy. 7. Obesity, probable obstructive sleep apnea-hypopnea syndrome. 8. Gastroesophageal reflux disease. 9. Possible aspiration pneumonia Plan . STAT ABG AND CXR PRN BIPAP D/W RN EXTUBATED 03/27 MAY NEED LTAC IN [place] FOLLOW NEURO KAT ACOSTA MD Mar 29, 2017 10:21
--- NOTE | 2017-03-29 10:29 | PDOC ---
PROGRESS NOTES Assessment Seizures, new onset, provoked. Metabolic encephalopathy. Acute respiratory failure. Acute renal failure. Leukocytosis. Acute appendicitis s/p appendectomy. Hypoalbuminemia. DM. Obesity. Plan I discussed risks, benefits, alternatives. As this is a provoked seizure and workup is negative, patient has had no further seizures, I will give four additional dose of levetiracetam 250 mg BID and then stop it. No driving for 6 months without a seizure Follow-up with neurology as needed. Subjective No complaints Objective Vital Signs Date Time Temp Pulse Resp B/P (MAP) Pulse Ox O2 Delivery O2 Flow Rate FiO2 03/29/17 09:43 92 BiPAP/CPAP 03/29/17 08:05 12.0 03/29/17 07:00 97.5 103 22 129/69 (89) 97.5 PHYSICAL EXAM Alert, Oriented to person, place, time PERRL. EOMI. CN: no focal findings. Muscle tone: normal. Muscle strength: 4/5 strength DTR: 0-1+ Plantar reflex: flexor Gait: not examined in bed. Sensory exam: no abnormal findings Cerebellar: no findings out of proportion to weakness Review of Relevant I have reviewed the following items na (where applicable) has been applied. Labs Laboratory Tests Test 03/27/17 12:45 03/28/17 05:00 03/29/17 04:00 03/29/17 05:43 O2 Saturation 94 % (92-99) Arterial Blood pH 7.46 (7.35-7.45) Arterial Blood pCO2 at Patient Temp 35 mmHg (35-46) Arterial Blood pO2 at Patient Temp 72 mmHg (85-108) Arterial Blood HCO3 24 mmol/L (21-28) Arterial Blood Base Excess 1 mmol/L (-3-3) FiO2 40 White Blood Count 11.7 x10^3/uL (4.0-11.0) 11.4 x10^3/uL (4.0-11.0) Red Blood Count 3.34 x10^6/uL (3.50-5.40) 3.27 x10^6/uL (3.50-5.40) Hemoglobin 10.1 g/dL (12.0-15.5) 9.7 g/dL (12.0-15.5) Hematocrit 29.9 % (36.0-47.0) 29.3 % (36.0-47.0) Mean Corpuscular Volume 90 fL (79-100) 90 fL (79-100) Mean Corpuscular Hemoglobin 30 pg (25-35) 30 pg (25-35) Mean Corpuscular Hemoglobin Concent 34 g/dL (31-37) 33 g/dL (31-37) Red Cell Distribution Width 15.6 % (11.5-14.5) 15.9 % (11.5-14.5) Platelet Count 301 x10^3/uL (140-400) 335 x10^3/uL (140-400) Neutrophils (%) (Auto) 74 % (31-73) 78 % (31-73) Lymphocytes (%) (Auto) 17 % (24-48) 14 % (24-48) Monocytes (%) (Auto) 6 % (0-9) 6 % (0-9) Eosinophils (%) (Auto) 2 % (0-3) 1 % (0-3) Basophils (%) (Auto) 1 % (0-3) 1 % (0-3) Neutrophils # (Auto) 8.6 x10^3uL (1.8-7.7) 8.9 x10^3uL (1.8-7.7) Lymphocytes # (Auto) 2.0 x10^3/uL (1.0-4.8) 1.6 x10^3/uL (1.0-4.8) Monocytes # (Auto) 0.7 x10^3/uL (0.0-1.1) 0.7 x10^3/uL (0.0-1.1) Eosinophils # (Auto) 0.2 x10^3/uL (0.0-0.7) 0.2 x10^3/uL (0.0-0.7) Basophils # (Auto) 0.1 x10^3/uL (0.0-0.2) 0.1 x10^3/uL (0.0-0.2) Sodium Level 145 mmol/L (136-145) 150 mmol/L (136-145) Potassium Level 3.7 mmol/L (3.5-5.1) 4.0 mmol/L (3.5-5.1) Chloride Level 107 mmol/L (98-107) 110 mmol/L (98-107) Carbon Dioxide Level 31 mmol/L (21-32) 31 mmol/L (21-32) Anion Gap 7 (6-14) 9 (6-14) Blood Urea Nitrogen 21 mg/dL (7-20) 26 mg/dL (7-20) Creatinine 2.9 mg/dL (0.6-1.0) 3.3 mg/dL (0.6-1.0) Estimated GFR (Cockcroft-Gault) 19.3 16.6 Glucose Level 110 mg/dL (70-99) 118 mg/dL (70-99) Glucose (Fingerstick) 111 mg/dL (70-99) 130 mg/dL (70-99) Calcium Level 8.9 mg/dL (8.5-10.1) 8.7 mg/dL (8.5-10.1) Phosphorus Level 3.7 mg/dL (2.6-4.7) 4.3 mg/dL (2.6-4.7) Magnesium Level 1.9 mg/dL (1.8-2.4) 2.1 mg/dL (1.8-2.4) Triglycerides Level 174 mg/dL (0-150) Laboratory Tests Test 03/29/17 04:00 03/29/17 05:43 White Blood Count 11.4 x10^3/uL (4.0-11.0) Red Blood Count 3.27 x10^6/uL (3.50-5.40) Hemoglobin 9.7 g/dL (12.0-15.5) Hematocrit 29.3 % (36.0-47.0) Mean Corpuscular Volume 90 fL (79-100) Mean Corpuscular Hemoglobin 30 pg (25-35) Mean Corpuscular Hemoglobin Concent 33 g/dL (31-37) Red Cell Distribution Width 15.9 % (11.5-14.5) Platelet Count 335 x10^3/uL (140-400) Neutrophils (%) (Auto) 78 % (31-73) Lymphocytes (%) (Auto) 14 % (24-48) Monocytes (%) (Auto) 6 % (0-9) Eosinophils (%) (Auto) 1 % (0-3) Basophils (%) (Auto) 1 % (0-3) Neutrophils # (Auto) 8.9 x10^3uL (1.8-7.7) Lymphocytes # (Auto) 1.6 x10^3/uL (1.0-4.8) Monocytes # (Auto) 0.7 x10^3/uL (0.0-1.1) Eosinophils # (Auto) 0.2 x10^3/uL (0.0-0.7) Basophils # (Auto) 0.1 x10^3/uL (0.0-0.2) Sodium Level 150 mmol/L (136-145) Potassium Level 4.0 mmol/L (3.5-5.1) Chloride Level 110 mmol/L (98-107) Carbon Dioxide Level 31 mmol/L (21-32) Anion Gap 9 (6-14) Blood Urea Nitrogen 26 mg/dL (7-20) Creatinine 3.3 mg/dL (0.6-1.0) Estimated GFR (Cockcroft-Gault) 16.6 Glucose Level 118 mg/dL (70-99) Calcium Level 8.7 mg/dL (8.5-10.1) Phosphorus Level 4.3 mg/dL (2.6-4.7) Magnesium Level 2.1 mg/dL (1.8-2.4) Triglycerides Level 174 mg/dL (0-150) Glucose (Fingerstick) 130 mg/dL (70-99) Microbiology 03/25/17 Blood Culture - Preliminary, Resulted NO GROWTH AFTER 3 DAYS Medications Current Medications Dexamethasone Sodium Phosphate (Decadron) 20 mg STK-MED ONCE .ROUTE ; Start 03/15/17 at 14:06; Stop 03/15/17 at 14:07; Status DC Ondansetron HCl (Zofran) 4 mg STK-MED ONCE .ROUTE ; Start 03/15/17 at 14:06; Stop 03/15/17 at 14:07; Status DC Propofol 20 ml @ As Directed STK-MED ONCE IV ; Start 03/15/17 at 14:06; Stop at 14:07; Status DC Lidocaine HCl (Lidocaine Pf 2% Vial) 5 ml STK-MED ONCE .ROUTE ; Start 03/15/17 at 14:06; Stop 03/15/17 at 14:07; Status DC Midazolam HCl (Versed) 2 mg STK-MED ONCE .ROUTE ; Start 03/15/17 at 14:06; Stop 03/15/17 at 14:07; Status DC Fentanyl Citrate (Fentanyl 2ml Vial) 100 mcg STK-MED ONCE .ROUTE ; Start at 14:06; Stop 03/15/17 at 14:07; Status DC Rocuronium Pearblossom (Zemuron) 100 mg STK-MED ONCE .ROUTE ; Start 03/15/17 at 14: 07; Stop 03/15/17 at 14:08; Status DC Succinylcholine Chloride (Anectine) 200 mg STK-MED ONCE .ROUTE ; Start 03/15/17 at 14:07; Stop 03/15/17 at 14:08; Status DC Bupivacaine HCl/ Epinephrine Bitart (Marcaine-Epi 0.5%-[id number]) 50 ml STK-MED ONCE .ROUTE Last administered on 03/15/17 14:54; Start 03/15/17 at 13:07; Stop 03/15/17 at 14:08; Status DC Cefoxitin Sodium 2 gm/Sodium Chloride 100 ml @ 200 mls/hr 1X PREOP IV Last administered on 03/15/17 14:55; Start 03/15/17 at 16:00; Stop 03/16/17 at 14:41 ; Status DC Sodium Chloride 1,000 ml @ 125 mls/hr 1X ONCE IV Last administered on 14:15; Start 03/15/17 at 14:15; Stop 03/15/17 at 22:14; Status DC Cefoxitin Sodium 100 ml @ As Directed STK-MED ONCE IV ; Start 03/15/17 at 14:53 ; Stop 03/15/17 at 14:54; Status DC Enoxaparin Sodium (Lovenox 40mg Syringe) 40 mg Q24H SQ ; Start 03/15/17 at 15:30 ; Stop 03/16/17 at 14:38; Status DC Sodium Chloride (Normal Saline Flush) 3 ml QSHIFT PRN IV AFTER MEDS AND BLOOD DRAWS; Start 03/15/17 at 15:30 Ringer's Solution 1,000 ml @ 75 mls/hr [id number] IV Last administered on 21:12; Start 03/15/17 at 15:19; Stop 03/27/17 at 12:51; Status DC Acetaminophen/ Hydrocodone Bitart (Lortab 5/325) 1 tab PRN Q4HRS PRN PO MILD PAIN Last administered on 03/16/17 02:56; Start 03/15/17 at 15:30; Stop at 13:05; Status DC Ketorolac Tromethamine (Toradol) 15 mg PRN Q6HRS PRN IV PAIN; Start 03/15/17 at 15:30; Stop 03/16/17 at 09:05; Status DC Morphine Sulfate 2 mg PRN Q1HR PRN IV PAIN Last administered on 03/22/17 09: 36; Start 03/15/17 at 15:30; Stop 03/27/17 at 12:51; Status DC Docusate Sodium (Colace) 100 mg BID PO Last administered on 03/17/17 13:04; Start 03/15/17 at 21:00 Ondansetron HCl (Zofran) 4 mg PRN Q6HRS PRN IV NAUESA, 1ST CHOICE Last administered on 03/22/17 06:34; Start 03/15/17 at 15:30; Stop 03/22/17 at 09: 09; Status DC Piperacillin Sod/ Tazobactam Sod 3.375 gm/Sodium Chloride 50 ml @ 100 mls/hr Q6HRS IV Last administered on 03/21/17 06:20; Start 03/15/17 at 18:00; Stop 03/21/17 at 09:24; Status DC Morphine Sulfate 10 mg STK-MED ONCE .ROUTE ; Start 03/15/17 at 15:32; Stop 03/15 at 15:33; Status DC Ringer's Solution 1,000 ml @ 125 mls/hr Q8H IV Last administered on 03/16/17 00:51; Start 03/15/17 at 15:42; Stop 03/16/17 at 03:41; Status DC Lidocaine HCl (Xylocaine-Mpf 1% Vial) 0.5 ml 1X PRN PRN INJ IV START; Start at 15:45; Stop 03/16/17 at 15:44; Status DC Ringer's Solution 1,000 ml @ 125 mls/hr Q8H IV ; Start 03/15/17 at 15:42; Stop 03/15/17 at 21:41; Status DC Fentanyl Citrate (Fentanyl 2ml Vial) 25 mcg PRN Q5MIN PRN IV Acute Pain; Start 03/15/17 at 15:45; Stop 03/16/17 at 09:05; Status DC Fentanyl Citrate (Fentanyl 2ml Vial) 50 mcg PRN Q5MIN PRN IV Acute Pain Last administered on 03/15/17 15:58; Start 03/15/17 at 15:45; Stop 03/16/17 at 09:05 ; Status DC Morphine Sulfate 2 mg PRN Q10MIN PRN IV Mild Pain; Start 03/15/17 at 15:45; Stop 03/16/17 at 09:05; Status DC Morphine Sulfate 4 mg PRN Q10MIN PRN IV Moderate Pain; Start 03/15/17 at 15:45 ; Stop 03/16/17 at 09:05; Status DC Ondansetron HCl (Zofran) 4 mg PRN Q6HRS PRN IV Nausea, 1st Choice; Start at 15:45; Stop 03/16/17 at 09:05; Status DC Metoclopramide HCl (Reglan) 10 mg PRN Q6HRS PRN IV Nausea/Vomiting, 2nd Choice Last administered on 03/15/17 18:49; Start 03/15/17 at 15:45; Stop 03/16/17 at 15:44; Status DC Diphenhydramine HCl (Benadryl) 12.5 mg PRN Q2HR PRN IV ITCHING; Start 03/15/17 at 15:45; Stop 03/16/17 at 15:44; Status DC Albuterol Sulfate (Ventolin Neb Soln) 2.5 mg PRN 1X PRN NEB Shortness of Breath , Wheezing; Start 03/15/17 at 15:45; Stop 03/16/17 at 15:44; Status DC Dexamethasone Sodium Phosphate (Decadron) 8 mg 1X PRN PRN IV 3RD CHOICE FOR NAUSEA; Start 03/15/17 at 15:45; Stop 03/16/17 at 15:44; Status DC Meperidine HCl (Demerol) 10 mg 1X PERIOP PRN IV SHIVERING; Start 03/15/17 at 15 :45; Stop 03/16/17 at 15:44; Status DC Meperidine HCl (Demerol) 15 mg 1X PERIOP PRN IV SHIVERING; Start 03/15/17 at 15 :45; Stop 03/16/17 at 15:44; Status DC Prochlorperazine Edisylate (Compazine) 10 mg STK-MED ONCE .ROUTE ; Start at 15:48; Stop 03/15/17 at 15:49; Status DC Prochlorperazine Maleate (Compazine) 5 mg 1X PACU PRN PO NAUSEA/VOMITING; Start 03/15/17 at 16:00; Stop 03/19/17 at 19:03; Status DC Hydromorphone HCl (Dilaudid) 0.5 mg PRN Q10MIN PRN IV PAIN Last administered on 03/15/17 16:52; Start 03/15/17 at 16:15; Stop 03/16/17 at 09:05; Status DC Acetaminophen/ Hydrocodone Bitart (Lortab 5/325) 2 tab PRN Q4HRS PRN PO PAIN Last administered on 03/16/17 10:16; Start 03/16/17 at 09:15; Stop 03/16/17 at 13:05; Status DC Multivitamins (Thera M Plus) 1 tab DAILY PO Last administered on 03/27/17 11: 29; Start 03/16/17 at 13:00 Pantoprazole Sodium (Protonix) 40 mg DAILYAC PO Last administered on 03/20/17 08:48; Start 03/16/17 at 13:00; Stop 03/20/17 at 11:14; Status DC Oxycodone/ Acetaminophen (Percocet 7.5/ 325) 1 tab PRN Q4HRS PRN PO PAIN Last administered on 03/23/17 14:59; Start 03/16/17 at 13:15 Morphine Sulfate 4 mg PRN Q2HR PRN IV PAIN Last administered on 03/18/17 14:11 ; Start 03/16/17 at 13:15; Stop 03/27/17 at 12:51; Status DC Enoxaparin Sodium (Lovenox 40mg Syringe) 40 mg Q12HR SQ Last administered on 08:47; Start 03/16/17 at 21:00; Stop 03/20/17 at 16:57; Status DC Iohexol (Omnipaque 300 Mg/ml) 75 ml 1X ONCE IV Last administered on 03/17/17 08:00; Start 03/17/17 at 08:00; Stop 03/17/17 at 08:01; Status DC Iohexol (Omnipaque 240 Mg/ml) 50 ml 1X ONCE PO Last administered on 03/17/17 08:00; Start 03/17/17 at 08:00; Stop 03/17/17 at 08:01; Status DC Info (Do NOT chart on this entry -- for MONITORING) 1 each PRN DAILY PRN MC SEE COMMENTS; Start 03/17/17 at 07:45; Stop 03/19/17 at 07:44; Status DC Sodium Chloride 1,000 ml @ 1,000 mls/hr 1X ONCE IV Last administered on 08:00; Start 03/17/17 at 08:00; Stop 03/17/17 at 08:59; Status DC Vancomycin HCl (Vanco Per Pharmacy) 1 each PRN DAILY PRN MC SEE COMMENTS Last administered on 03/18/17 14:24; Start 03/17/17 at 08:00; Stop 03/19/17 at 11:10 ; Status DC Fluconazole/ Sodium Chloride 200 ml @ 100 mls/hr Q24H IV Last administered on 03/21/17 08:07; Start 03/17/17 at 09:00; Stop 03/21/17 at 09:24; Status DC Vancomycin HCl 2 gm/Sodium Chloride 500 ml @ 250 mls/hr 1X ONCE IV Last administered on 03/17/17 13:08; Start 03/17/17 at 09:00; Stop 03/17/17 at 10:59 ; Status DC Acetaminophen (Tylenol) 650 mg PRN Q6HRS PRN PO FEVER Last administered on 16:34; Start 03/17/17 at 08:15 Vancomycin HCl 2 gm/Sodium Chloride 500 ml @ 250 mls/hr Q8H IV Last administered on 03/19/17 05:41; Start 03/17/17 at 22:00; Stop 03/19/17 at 11:10 ; Status DC Vancomycin HCl 1 each 1X ONCE MC ; Start 03/18/17 at 13:30; Stop 03/18/17 at 13 :31; Status DC Calcium Carbonate/ Glycine (Tums) 1,000 mg PRN Q4HRS PRN PO INDIGESTION Last administered on 03/17/17 23:57; Start 03/17/17 at 23:45 Potassium Chloride (Klor-Con) 40 meq 1X ONCE PO Last administered on 14:14; Start 03/18/17 at 12:45; Stop 03/18/17 at 12:46; Status DC Vancomycin HCl 1 each 1X ONCE MC ; Start 03/19/17 at 13:30; Stop 03/19/17 at 13 :30; Status DC Sodium Chloride 1,000 ml @ 1,000 mls/hr 1X ONCE IV Last administered on 14:28; Start 03/19/17 at 12:15; Stop 03/19/17 at 13:14; Status DC Pantoprazole Sodium (Protonix) 40 mg BIDAC PO Last administered on 03/25/17 08:31; Start 03/20/17 at 16:30; Stop 03/25/17 at 16:05; Status DC Simethicone (Gas-X) 80 mg PRN AFTMEALHC PRN PO GAS / BLOATING Last administered on 03/22/17 08:55; Start 03/20/17 at 11:15 Al Hydroxide/Mg Hydroxide (Mylanta Plus Xs) 30 ml PRN Q2HR PRN PO HEARTBURN / GAS; Start 03/20/17 at 11:15 Enoxaparin Sodium (Lovenox 40mg Syringe) 40 mg DAILY SQ Last administered on 08:09; Start 03/21/17 at 09:00; Stop 03/22/17 at 12:42; Status DC Fluconazole/ Sodium Chloride 100 ml @ 100 mls/hr Q24H IV ; Start 03/22/17 at 09:00; Stop 03/22/17 at 09:00; Status DC Piperacillin Sod/ Tazobactam Sod 3.375 gm/Sodium Chloride 50 ml @ 100 mls/hr Q12HR IV ; Start 03/21/17 at 21:00; Stop 03/21/17 at 21:00; Status DC Fluconazole/ Sodium Chloride 100 ml @ 100 mls/hr Q24H IV Last administered on 03/22/17 09:30; Start 03/22/17 at 09:00; Stop 03/23/17 at 10:05; Status DC Piperacillin Sod/ Tazobactam Sod 2.25 gm/Sodium Chloride 50 ml @ 100 mls/hr Q6HRS IV Last administered on 03/23/17 05:58; Start 03/21/17 at 12:00; Stop 03/23/17 at 10:05; Status DC Ondansetron HCl (Zofran) 8 mg PRN Q8HRS PRN IV NAUESA, 1ST CHOICE Last administered on 03/25/17 06:17; Start 03/22/17 at 09:15 Prochlorperazine Edisylate (Compazine) 10 mg PRN Q8HRS PRN IV NAUSEA/VOMITING - 2nd choice Last administered on 03/25/17 10:23; Start 03/22/17 at 09:15 Amino Acids/ Glycerin/ Electrolytes 1,000 ml @ 80 mls/hr [id number] IV Last administered on 03/27/17 06:09; Start 03/22/17 at 11:45; Stop 03/27/17 at 21 :59; Status DC Heparin Sodium (Porcine) (Heparin Sq) 5,000 unit Q8HRS SQ Last administered on 03/25/17 06:07; Start 03/22/17 at 14:00; Stop 03/25/17 at 08:45; Status DC Loperamide HCl (Imodium) 2 mg PRN Q15MIN PRN PO DIARRHEA; Start 03/23/17 at 08 :00 Amoxicillin/ Clavulanate Potassium (Augmentin 500/ 125mg) 1 tab BID PO Last administered on 03/25/17 08:31; Start 03/23/17 at 10:30; Stop 03/25/17 at 14 :03; Status DC Promethazine HCl (Phenergan) 25 mg PRN Q6HRS PRN [place] NAUSEA/VOMITING; Start 05/28 at 15:15 Furosemide (Lasix) 80 mg 1X ONCE IVP Last administered on 03/24/17 12:13; Start 03/24/17 at 11:30; Stop 03/24/17 at 11:31; Status DC Iohexol (Omnipaque 240 Mg/ml) 50 ml 1X ONCE PO Last administered on 09:30; Start 03/25/17 at 09:30; Stop 03/25/17 at 09:31; Status DC Iohexol (Omnipaque 240 Mg/ml) 50 ml 1X ONCE PO Last administered on 12:32; Start 03/25/17 at 12:30; Stop 03/25/17 at 12:31; Status DC Lorazepam (Ativan) 1 mg 1X ONCE IV Last administered on 03/25/17 13:40; Start 03/25/17 at 14:00; Stop 03/25/17 at 14:01; Status DC Piperacillin Sod/ Tazobactam Sod 2.25 gm/Sodium Chloride 50 ml @ 100 mls/hr Q8HRS IV Last administered on 03/29/17 05:39; Start 03/25/17 at 15:00 Levetiracetam 500 mg/Sodium Chloride 100 ml @ 400 mls/hr Q12HR IV ; Start at 15:00; Stop 03/25/17 at 15:00; Status DC Lorazepam (Ativan) 2 mg PRN Q1HR PRN IV SEIZURE Last administered on 14:30; Start 03/25/17 at 14:15; Stop 03/25/17 at 15:27; Status DC Levetiracetam 750 mg/Sodium Chloride 107.5 ml @ 400 mls/hr Q12HR IV Last administered on 03/28/17 21:02; Start 03/25/17 at 15:00; Stop 03/29/17 at 09 :12; Status DC Digoxin (Lanoxin) 500 mcg 1X ONCE IV Last administered on 03/25/17 14:34; Start 03/25/17 at 14:30; Stop 03/25/17 at 14:31; Status DC Norepinephrine Bitartrate 250 ml @ 0 mls/hr CONT PRN IV SEE I/O RECORD Last administered on 03/25/17 21:53; Start 03/25/17 at 14:30 Sodium Chloride 1,000 ml @ 1,000 mls/hr 1X ONCE IV Last administered on 03/25 15:38; Start 03/25/17 at 15:00; Stop 03/25/17 at 15:59; Status DC Lorazepam (Ativan) 2 mg PRN Q4HRS PRN IV SEIZURE Last administered on 15:55; Start 03/25/17 at 15:30 Propofol 100 ml @ As Directed STK-MED ONCE IV ; Start 03/25/17 at 15:28; Stop 03/25/17 at 15:29; Status DC Propofol 100 ml @ 0 mls/hr CONT PRN IV SEE I/O RECORD Last administered on 11:00; Start 03/25/17 at 15:45 Sodium Bicarbonate 150 meq 1X ONCE IV Last administered on 03/25/17 15:43; Start 03/25/17 at 16:00; Stop 03/25/17 at 16:01; Status DC Adenosine (Adenocard) 6 mg 1X ONCE IV Last administered on 03/25/17 15:42; Start 03/25/17 at 16:15; Stop 03/25/17 at 16:16; Status DC Adenosine (Adenocard) 12 mg 1X ONCE IV Last administered on 03/25/17 15:48; Start 03/25/17 at 16:00; Stop 03/25/17 at 16:01; Status DC Midazolam HCl (Versed) 5 mg 1X ONCE IV Last administered on 03/25/17 15:48; Start 03/25/17 at 16:00; Stop 03/25/17 at 16:01; Status DC Pantoprazole Sodium (Protonix Vial) 40 mg BID IVP Last administered on 21:05; Start 03/25/17 at 21:00 Sodium Chloride 1,000 ml @ 1,000 mls/hr Q1H PRN IV hypotension; Start at 16:30; Stop 03/25/17 at 22:29; Status DC Sodium Chloride (Normal Saline Flush) 10 ml 1X PRN PRN IV AP catheter pack; Start 03/25/17 at 16:30; Stop 03/26/17 at 08:54; Status DC Sodium Chloride (Normal Saline Flush) 10 ml 1X PRN PRN IV SPECIFICATIONS WRITER catheter pack; Start 03/25/17 at 16:30; Stop 03/26/17 at 08:54; Status DC Sodium Chloride 1,000 ml @ 400 mls/hr Q2H30M PRN IV PATENCY; Start 03/25/17 at 16:30; Stop 03/26/17 at 04:29; Status DC Info (PHARMACY MONITORING -- do not chart) 1 each PRN DAILY PRN MC SEE COMMENTS ; Start 03/25/17 at 16:30 Info (PHARMACY MONITORING -- do not chart) 1 each PRN DAILY PRN MC SEE COMMENTS ; Start 03/25/17 at 16:30; Status UNV Acetaminophen (Tylenol) 650 mg PRN Q6HRS PRN PEG MILD PAIN / TEMP Last administered on 03/25/17t 18:44; Start 03/25/17 at 18:30 Fentanyl Citrate 30 ml @ 0 mls/hr CONT PRN PRN IV PROTOCOL; Start 03/25/17 at 19:15 Sodium Chloride 1,000 ml @ 1,000 mls/hr Q1H PRN IV hypotension; Start at 08:46; Stop 03/26/17 at 14:45; Status DC Sodium Chloride (Normal Saline Flush) 10 ml 1X PRN PRN IV AP catheter pack; Start 03/26/17 at 09:00; Stop 03/27/17 at 08:59; Status DC Sodium Chloride (Normal Saline Flush) 10 ml 1X PRN PRN IV SPECIFICATIONS WRITER catheter pack; Start 03/26/17 at 09:00; Stop 03/27/17 at 08:59; Status DC Sodium Chloride 1,000 ml @ 400 mls/hr Q2H30M PRN IV PATENCY; Start 03/26/17 at 08:46; Stop 03/26/17 at 20:45; Status DC Info (PHARMACY MONITORING -- do not chart) 1 each PRN DAILY PRN MC SEE COMMENTS ; Start 03/26/17 at 09:00; Status UNV Info (PHARMACY MONITORING -- do not chart) 1 each PRN DAILY PRN MC SEE COMMENTS ; Start 03/26/17 at 09:00; Status UNV Levothyroxine Sodium 15 mcg/ Sodium Chloride 5 ml @ 100 mls/hr DAILY IVP Last administered on 03/28/17 09:11; Start 03/26/17 at 14:00 Chlorhexidine Gluconate (Peridex) 15 ml BID MM Last administered on 03/27/17 07:45; Start 03/26/17 at 21:00; Stop 03/27/17 at 20:57; Status DC Heparin Sodium (Porcine) (Heparin Sq) 5,000 unit BID SQ Last administered on 21:17; Start 03/26/17 at 21:00 Heparin Sodium (Porcine) (Heparin Sodium) 10,000 unit STK-MED ONCE .ROUTE ; Start 03/27/17 at 08:15; Stop 03/27/17 at 08:16; Status DC Lidocaine/ Epinephrine (Xylocaine 1%-Epi 1:100,000) 20 ml STK-MED ONCE .ROUTE ; Start 03/27/17 at 08:15; Stop 03/27/17 at 08:16; Status DC Heparin Sodium/ Sodium Chloride 500 ml @ As Directed STK-MED ONCE .ROUTE ; Start 03/27/17 at 08:15; Stop 03/27/17 at 08:16; Status DC Heparin Sodium/ Sodium Chloride 1,000 unit 1X ONCE IART Last administered on 03/27/17 10:53; Start 03/27/17 at 10:30; Stop 03/27/17 at 10:45; Status DC Lidocaine/ Epinephrine (Xylocaine 1%-Epi 1:100,000) 20 ml 1X ONCE INJ Last administered on 03/27/17 10:53; Start 03/27/17 at 10:30; Stop 03/27/17 at 10 :45; Status DC Heparin Sodium (Porcine) (Heparin Sodium) 3,800 unit 1X ONCE INT CAT Last administered on 03/27/17 10:54; Start 03/27/17 at 10:30; Stop 03/27/17 at 10 :45; Status DC Darbepoetin Jean (Aranesp) 60 mcg [id number] SQ Last administered on 03/27/17 22:38; Start 03/27/17 at 21:00 Info 1 each PRN DAILY PRN MC SEE COMMENTS Last administered on 03/28/17 13:10 ; Start 03/27/17 at 13:45 Sodium Chloride 90 meq/Potassium Chloride 50 meq/ Potassium Phosphate 13.6 mmol/ Magnesium Sulfate 10 meq/ Calcium Gluconate 10 meq/ Multivitamins 10 ml/Chromium / Copper/Manganese/ Seleni/Zn 1 ml/ Total Parenteral Nutrition/Amino Acids/ Dextrose/ Fat Emulsion Intravenous 1,512 ml @ 63 mls/hr TPN CONT IV Last administered on 03/27/17 22:37; Start 03/27/17 at 22:00; Stop 03/28/17 at 21 :59; Status DC Adenosine (Adenocard) 18 mg STK-MED ONCE IV ; Start 03/26/17 at 12:00; Stop at 14:50; Status DC Midazolam HCl (Versed) 5 mg STK-MED ONCE .ROUTE ; Start 03/26/17 at 12:00; Stop 03/27/17 at 14:50; Status DC Sodium Bicarbonate 150 meq STK-MED ONCE .ROUTE ; Start 03/26/17 at 12:00; Stop 03/27/17 at 14:50; Status DC Morphine Sulfate 2 mg PRN Q2HR PRN IV PAIN Last administered on 03/27/17t 15: 43; Start 03/27/17 at 15:30 Midazolam HCl (Versed) 5 mg STK-MED ONCE .ROUTE ; Start 03/25/17 at 12:00; Stop 03/27/17 at 15:30; Status DC Vecuronium Pearblossom (Norcuron Bolus) 10 mg STK-MED ONCE IV ; Start 03/25/17 at 12:00; Stop 03/27/17 at 15:30; Status DC Albumin Human 200 ml @ 200 mls/hr 1X PRN PRN IV Hypotension; Start 03/27/17 at 19:30; Stop 03/28/17 at 01:29; Status DC Sodium Chloride (Normal Saline Flush) 10 ml 1X PRN PRN IV AP catheter pack; Start 03/27/17 at 19:30; Stop 03/28/17 at 19:29; Status DC Sodium Chloride (Normal Saline Flush) 10 ml 1X PRN PRN IV SPECIFICATIONS WRITER catheter pack; Start 03/27/17 at 19:30; Stop 03/28/17 at 19:29; Status DC Info (PHARMACY MONITORING -- do not chart) 1 each PRN DAILY PRN MC SEE COMMENTS ; Start 03/27/17 at 19:30; Status UNV Info (PHARMACY MONITORING -- do not chart) 1 each PRN DAILY PRN MC SEE COMMENTS ; Start 03/27/17 at 19:30; Status UNV Sodium Chloride 90 meq/Potassium Chloride 50 meq/ Potassium Phosphate 13.6 mmol/ Magnesium Sulfate 10 meq/ Calcium Gluconate 5 meq/ Multivitamins 10 ml/Chromium / Copper/Manganese/ Seleni/Zn 1 ml/ Total Parenteral Nutrition/Amino Acids/ Dextrose/ Fat Emulsion Intravenous 1,512 ml @ 63 mls/hr TPN CONT IV Last administered on 03/28/17t 22:10; Start 03/28/17 at 22:00; Stop 03/29/17 at 21 :59 Levetiracetam (Keppra) 250 mg BID PO ; Start 03/29/17 at 21:00; Stop 03/31/17 at 09:01 Active Scripts Active Reported Multivitamins (Multivitamin) 1 Each Tablet 1 Tab PO DAILY Omeprazole 20 Mg Capsule.dr 1 Cap PO DAILY Vitals/I & O Vital Sign - Last 24 Hours 03/28/17 03/28/17 03/28/17 03/28/17 11:00 12:00 12:00 16:00 Temp 98.5 98.7 98.5 98.7 Pulse 92 98 101 Resp 25 20 13 B/P (MAP) 125/87 (100) 126/85 (99) 124/79 (94) Pulse Ox 95 96 94 O2 Delivery Nasal Cannula Nasal Cannula Nasal Cannula Nasal Cannula O2 Flow Rate 2.0 2.0 2.0 2.0 03/28/17 03/28/17 03/28/17 03/29/17 19:46 19:56 23:11 04:03 Temp 98.2 98.4 98.6 98.2 98.4 98.6 Pulse 98 101 117 Resp 21 17 22 B/P (MAP) 121/87 (98) 123/89 (100) 132/96 (108) Pulse Ox 93 94 O2 Delivery Nasal Cannula Nasal Cannula Nasal Cannula NonRebreather Mask O2 Flow Rate 2.0 2.0 2.0 40.0 03/29/17 03/29/17 03/29/17 07:00 08:05 09:43 Temp 97.5 97.5 Pulse 103 Resp 22 B/P (MAP) 129/69 (89) Pulse Ox 92 O2 Delivery NonRebreather Mask Venturi Mask BiPAP/CPAP O2 Flow Rate 40.0 12.0 Images Brain MRI: Findings: Comparison is made to patient's CT scan of the head dated 03/25/2017. Images from the study are degraded by patient motion. The ventricles and sulci are within normal limits in size and configuration. No area of significant abnormal signal intensity is seen involving brain parenchyma. No extra-axial fluid collection is seen. There is no MRI evidence of acute ischemia/infarction. Images through the temporal lobes are within normal limits. The paranasal sinuses are essentially clear. There are minimal bilateral mastoid effusions, right greater than left. Normal flow voids are seen within the major vascular structures surrounding the brain parenchyma. Impression: Essentially negative study. MATTHIAS ZULETA MD Mar 29, 2017 10:29
[2017-03-29 10:43] LABS: HCO3 ABG 26 mmol/L (21-28); PCO2 ABG 41 mmHg (35-46); PH ABG 7.42 (7.35-7.45); PO2 ABG 71 mmHg (85-108); SAT O2 ABG 93 % (92-99)
[2017-03-29 10:50] LABS: FIO2 ABG 35
[2017-03-29] MEDS: PANTOPRAZOLE IV PUSH 40 MG VIAL. IVP SCH (11:59)
[2017-03-29] MEDS: NORMAL SALINE IVP SCH (12:00)
[2017-03-29] MEDS: LEVOTHYROXINE SODIUM IVP SCH (12:00)
[2017-03-29] MEDS: HEPARIN PF for SUB-Q USE 5,000 UNIT/0.5 ML VIAL. SQ SCH ×2 (12:04→22:46)
[2017-03-29] MEDS: TPN PER PHARMACY MC PRN ×3 (12:20→16:23)
--- NOTE | 2017-03-29 12:25 | RAD ---
Single view of the Chest 03/29/2017 2:00 AM Indication: hypoxia 248,respiratory in rm. @ 9:45am. Comparison: Chest radiograph, yesterday Findings: There is a right upper extremity PICC line in a right internal jugular tunneled dialysis catheter in place. No pneumothorax is seen. No definitive pleural effusion is identified. The heart is mildly enlarged. Central vascular congestion and interstitial thickening suggesting fluid overload or mild interstitial edema appears to be present. This is increased since prior chest radiograph. No acute osseous changes are identified. Impression: Interval increase in interstitial edema and central vascular congestion
--- NOTE | 2017-03-29 12:44 | PDOC ---
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 She was laying on a chair with a venturi mask on FiO2 40% and TPN drip. She looked sick and weak. She had SOB, and heavy and irregular breathing as well. NEB was ordered and discussed with the nurse. Pt is being followed by general surgery, neuro, cardio, and infectious disease. Plan and care was discussed with the patient's father. Vitals Vitals Vital Signs Date Time Temp Pulse Resp B/P (MAP) Pulse Ox O2 Delivery O2 Flow Rate FiO2 03/29/17 10:56 97.6 119 24 141/97 (112) 92 NonRebreather Mask 40.0 97.6 Physical Exam General: Alert, Oriented X3, Cooperative, No acute distress Heart: Regular rate, Normal S1, Normal S2, No murmurs Lungs: Clear, Other (Heavy breathing) Abdomen: Soft, No tenderness Extremities: No clubbing, No cyanosis, No edema, Normal pulses, No tenderness/ swelling Skin: No rashes, No breakdown, No significant lesion Labs LABS Laboratory Tests Test 03/29/17 04:00 03/29/17 05:43 03/29/17 10:30 03/29/17 11:59 White Blood Count 11.4 x10^3/uL (4.0-11.0) Red Blood Count 3.27 x10^6/uL (3.50-5.40) Hemoglobin 9.7 g/dL (12.0-15.5) Hematocrit 29.3 % (36.0-47.0) Mean Corpuscular Volume 90 fL (79-100) Mean Corpuscular Hemoglobin 30 pg (25-35) Mean Corpuscular Hemoglobin Concent 33 g/dL (31-37) Red Cell Distribution Width 15.9 % (11.5-14.5) Platelet Count 335 x10^3/uL (140-400) Neutrophils (%) (Auto) 78 % (31-73) Lymphocytes (%) (Auto) 14 % (24-48) Monocytes (%) (Auto) 6 % (0-9) Eosinophils (%) (Auto) 1 % (0-3) Basophils (%) (Auto) 1 % (0-3) Neutrophils # (Auto) 8.9 x10^3uL (1.8-7.7) Lymphocytes # (Auto) 1.6 x10^3/uL (1.0-4.8) Monocytes # (Auto) 0.7 x10^3/uL (0.0-1.1) Eosinophils # (Auto) 0.2 x10^3/uL (0.0-0.7) Basophils # (Auto) 0.1 x10^3/uL (0.0-0.2) Sodium Level 150 mmol/L (136-145) Potassium Level 4.0 mmol/L (3.5-5.1) Chloride Level 110 mmol/L (98-107) Carbon Dioxide Level 31 mmol/L (21-32) Anion Gap 9 (6-14) Blood Urea Nitrogen 26 mg/dL (7-20) Creatinine 3.3 mg/dL (0.6-1.0) Estimated GFR (Cockcroft-Gault) 16.6 Glucose Level 118 mg/dL (70-99) Calcium Level 8.7 mg/dL (8.5-10.1) Phosphorus Level 4.3 mg/dL (2.6-4.7) Magnesium Level 2.1 mg/dL (1.8-2.4) Triglycerides Level 174 mg/dL (0-150) Glucose (Fingerstick) 130 mg/dL (70-99) 132 mg/dL (70-99) O2 Saturation 93 % (92-99) Arterial Blood pH 7.42 (7.35-7.45) Arterial Blood pCO2 at Patient Temp 41 mmHg (35-46) Arterial Blood pO2 at Patient Temp 71 mmHg (85-108) Arterial Blood HCO3 26 mmol/L (21-28) Arterial Blood Base Excess 2 mmol/L (-3-3) FiO2 35 Review of Systems Review of Systems fatigue and weakness Assessment and Plan Assessmemt and Plan Assessment: Acute renal failure ATN Acute appendicitis with perforation s/p lap appendectomy 03/15, path acute and chronic appendicitis morbid obesity BMI 44 Persistent nausea 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 Labs Laboratory Tests Test 03/27/17 12:45 03/28/17 05:00 03/29/17 04:00 03/29/17 05:43 O2 Saturation 94 % (92-99) Arterial Blood pH 7.46 (7.35-7.45) Arterial Blood pCO2 at Patient Temp 35 mmHg (35-46) Arterial Blood pO2 at Patient Temp 72 mmHg (85-108) Arterial Blood HCO3 24 mmol/L (21-28) Arterial Blood Base Excess 1 mmol/L (-3-3) FiO2 40 White Blood Count 11.7 x10^3/uL (4.0-11.0) 11.4 x10^3/uL (4.0-11.0) Red Blood Count 3.34 x10^6/uL (3.50-5.40) 3.27 x10^6/uL (3.50-5.40) Hemoglobin 10.1 g/dL (12.0-15.5) 9.7 g/dL (12.0-15.5) Hematocrit 29.9 % (36.0-47.0) 29.3 % (36.0-47.0) Mean Corpuscular Volume 90 fL (79-100) 90 fL (79-100) Mean Corpuscular Hemoglobin 30 pg (25-35) 30 pg (25-35) Mean Corpuscular Hemoglobin Concent 34 g/dL (31-37) 33 g/dL (31-37) Red Cell Distribution Width 15.6 % (11.5-14.5) 15.9 % (11.5-14.5) Platelet Count 301 x10^3/uL (140-400) 335 x10^3/uL (140-400) Neutrophils (%) (Auto) 74 % (31-73) 78 % (31-73) Lymphocytes (%) (Auto) 17 % (24-48) 14 % (24-48) Monocytes (%) (Auto) 6 % (0-9) 6 % (0-9) Eosinophils (%) (Auto) 2 % (0-3) 1 % (0-3) Basophils (%) (Auto) 1 % (0-3) 1 % (0-3) Neutrophils # (Auto) 8.6 x10^3uL (1.8-7.7) 8.9 x10^3uL (1.8-7.7) Lymphocytes # (Auto) 2.0 x10^3/uL (1.0-4.8) 1.6 x10^3/uL (1.0-4.8) Monocytes # (Auto) 0.7 x10^3/uL (0.0-1.1) 0.7 x10^3/uL (0.0-1.1) Eosinophils # (Auto) 0.2 x10^3/uL (0.0-0.7) 0.2 x10^3/uL (0.0-0.7) Basophils # (Auto) 0.1 x10^3/uL (0.0-0.2) 0.1 x10^3/uL (0.0-0.2) Sodium Level 145 mmol/L (136-145) 150 mmol/L (136-145) Potassium Level 3.7 mmol/L (3.5-5.1) 4.0 mmol/L (3.5-5.1) Chloride Level 107 mmol/L (98-107) 110 mmol/L (98-107) Carbon Dioxide Level 31 mmol/L (21-32) 31 mmol/L (21-32) Anion Gap 7 (6-14) 9 (6-14) Blood Urea Nitrogen 21 mg/dL (7-20) 26 mg/dL (7-20) Creatinine 2.9 mg/dL (0.6-1.0) 3.3 mg/dL (0.6-1.0) Estimated GFR (Cockcroft-Gault) 19.3 16.6 Glucose Level 110 mg/dL (70-99) 118 mg/dL (70-99) Glucose (Fingerstick) 111 mg/dL (70-99) 130 mg/dL (70-99) Calcium Level 8.9 mg/dL (8.5-10.1) 8.7 mg/dL (8.5-10.1) Phosphorus Level 3.7 mg/dL (2.6-4.7) 4.3 mg/dL (2.6-4.7) Magnesium Level 1.9 mg/dL (1.8-2.4) 2.1 mg/dL (1.8-2.4) Triglycerides Level 174 mg/dL (0-150) Test 03/29/17 10:30 03/29/17 11:59 O2 Saturation 93 % (92-99) Arterial Blood pH 7.42 (7.35-7.45) Arterial Blood pCO2 at Patient Temp 41 mmHg (35-46) Arterial Blood pO2 at Patient Temp 71 mmHg (85-108) Arterial Blood HCO3 26 mmol/L (21-28) Arterial Blood Base Excess 2 mmol/L (-3-3) FiO2 35 Glucose (Fingerstick) 132 mg/dL (70-99) Laboratory Tests Test 03/29/17 04:00 03/29/17 05:43 03/29/17 10:30 03/29/17 11:59 White Blood Count 11.4 x10^3/uL (4.0-11.0) Red Blood Count 3.27 x10^6/uL (3.50-5.40) Hemoglobin 9.7 g/dL (12.0-15.5) Hematocrit 29.3 % (36.0-47.0) Mean Corpuscular Volume 90 fL (79-100) Mean Corpuscular Hemoglobin 30 pg (25-35) Mean Corpuscular Hemoglobin Concent 33 g/dL (31-37) Red Cell Distribution Width 15.9 % (11.5-14.5) Platelet Count 335 x10^3/uL (140-400) Neutrophils (%) (Auto) 78 % (31-73) Lymphocytes (%) (Auto) 14 % (24-48) Monocytes (%) (Auto) 6 % (0-9) Eosinophils (%) (Auto) 1 % (0-3) Basophils (%) (Auto) 1 % (0-3) Neutrophils # (Auto) 8.9 x10^3uL (1.8-7.7) Lymphocytes # (Auto) 1.6 x10^3/uL (1.0-4.8) Monocytes # (Auto) 0.7 x10^3/uL (0.0-1.1) Eosinophils # (Auto) 0.2 x10^3/uL (0.0-0.7) Basophils # (Auto) 0.1 x10^3/uL (0.0-0.2) Sodium Level 150 mmol/L (136-145) Potassium Level 4.0 mmol/L (3.5-5.1) Chloride Level 110 mmol/L (98-107) Carbon Dioxide Level 31 mmol/L (21-32) Anion Gap 9 (6-14) Blood Urea Nitrogen 26 mg/dL (7-20) Creatinine 3.3 mg/dL (0.6-1.0) Estimated GFR (Cockcroft-Gault) 16.6 Glucose Level 118 mg/dL (70-99) Calcium Level 8.7 mg/dL (8.5-10.1) Phosphorus Level 4.3 mg/dL (2.6-4.7) Magnesium Level 2.1 mg/dL (1.8-2.4) Triglycerides Level 174 mg/dL (0-150) Glucose (Fingerstick) 130 mg/dL (70-99) 132 mg/dL (70-99) O2 Saturation 93 % (92-99) Arterial Blood pH 7.42 (7.35-7.45) Arterial Blood pCO2 at Patient Temp 41 mmHg (35-46) Arterial Blood pO2 at Patient Temp 71 mmHg (85-108) Arterial Blood HCO3 26 mmol/L (21-28) Arterial Blood Base Excess 2 mmol/L (-3-3) FiO2 35 Microbiology 03/25/17 Blood Culture - Preliminary, Resulted NO GROWTH AFTER 3 DAYS Medications Current Medications Dexamethasone Sodium Phosphate (Decadron) 20 mg STK-MED ONCE .ROUTE ; Start 03/15/17 at 14:06; Stop 03/15/17 at 14:07; Status DC Ondansetron HCl (Zofran) 4 mg STK-MED ONCE .ROUTE ; Start 03/15/17 at 14:06; Stop 03/15/17 at 14:07; Status DC Propofol 20 ml @ As Directed STK-MED ONCE IV ; Start 03/15/17 at 14:06; Stop at 14:07; Status DC Lidocaine HCl (Lidocaine Pf 2% Vial) 5 ml STK-MED ONCE .ROUTE ; Start 03/15/17 at 14:06; Stop 03/15/17 at 14:07; Status DC Midazolam HCl (Versed) 2 mg STK-MED ONCE .ROUTE ; Start 03/15/17 at 14:06; Stop 03/15/17 at 14:07; Status DC Fentanyl Citrate (Fentanyl 2ml Vial) 100 mcg STK-MED ONCE .ROUTE ; Start at 14:06; Stop 03/15/17 at 14:07; Status DC Rocuronium Sproul (Zemuron) 100 mg STK-MED ONCE .ROUTE ; Start 03/15/17 at 14: 07; Stop 03/15/17 at 14:08; Status DC Succinylcholine Chloride (Anectine) 200 mg STK-MED ONCE .ROUTE ; Start 03/15/17 at 14:07; Stop 03/15/17 at 14:08; Status DC Bupivacaine HCl/ Epinephrine Bitart (Marcaine-Epi 0.5%-[id number]) 50 ml STK-MED ONCE .ROUTE Last administered on 03/15/17 14:54; Start 03/15/17 at 13:07; Stop 03/15/17 at 14:08; Status DC Cefoxitin Sodium 2 gm/Sodium Chloride 100 ml @ 200 mls/hr 1X PREOP IV Last administered on 03/15/17 14:55; Start 03/15/17 at 16:00; Stop 03/16/17 at 14:41 ; Status DC Sodium Chloride 1,000 ml @ 125 mls/hr 1X ONCE IV Last administered on 14:15; Start 03/15/17 at 14:15; Stop 03/15/17 at 22:14; Status DC Cefoxitin Sodium 100 ml @ As Directed STK-MED ONCE IV ; Start 03/15/17 at 14:53 ; Stop 03/15/17 at 14:54; Status DC Enoxaparin Sodium (Lovenox 40mg Syringe) 40 mg Q24H SQ ; Start 03/15/17 at 15:30 ; Stop 03/16/17 at 14:38; Status DC Sodium Chloride (Normal Saline Flush) 3 ml QSHIFT PRN IV AFTER MEDS AND BLOOD DRAWS; Start 03/15/17 at 15:30 Ringer's Solution 1,000 ml @ 75 mls/hr [id number] IV Last administered on 21:12; Start 03/15/17 at 15:19; Stop 03/27/17 at 12:51; Status DC Acetaminophen/ Hydrocodone Bitart (Lortab 5/325) 1 tab PRN Q4HRS PRN PO MILD PAIN Last administered on 03/16/17 02:56; Start 03/15/17 at 15:30; Stop at 13:05; Status DC Ketorolac Tromethamine (Toradol) 15 mg PRN Q6HRS PRN IV PAIN; Start 03/15/17 at 15:30; Stop 03/16/17 at 09:05; Status DC Morphine Sulfate 2 mg PRN Q1HR PRN IV PAIN Last administered on 03/22/17 09: 36; Start 03/15/17 at 15:30; Stop 03/27/17 at 12:51; Status DC Docusate Sodium (Colace) 100 mg BID PO Last administered on 03/17/17 13:04; Start 03/15/17 at 21:00 Ondansetron HCl (Zofran) 4 mg PRN Q6HRS PRN IV NAUESA, 1ST CHOICE Last administered on 03/22/17 06:34; Start 03/15/17 at 15:30; Stop 03/22/17 at 09: 09; Status DC Piperacillin Sod/ Tazobactam Sod 3.375 gm/Sodium Chloride 50 ml @ 100 mls/hr Q6HRS IV Last administered on 03/21/17 06:20; Start 03/15/17 at 18:00; Stop 03/21/17 at 09:24; Status DC Morphine Sulfate 10 mg STK-MED ONCE .ROUTE ; Start 03/15/17 at 15:32; Stop 03/15 at 15:33; Status DC Ringer's Solution 1,000 ml @ 125 mls/hr Q8H IV Last administered on 03/16/17 00:51; Start 03/15/17 at 15:42; Stop 03/16/17 at 03:41; Status DC Lidocaine HCl (Xylocaine-Mpf 1% Vial) 0.5 ml 1X PRN PRN INJ IV START; Start at 15:45; Stop 03/16/17 at 15:44; Status DC Ringer's Solution 1,000 ml @ 125 mls/hr Q8H IV ; Start 03/15/17 at 15:42; Stop 03/15/17 at 21:41; Status DC Fentanyl Citrate (Fentanyl 2ml Vial) 25 mcg PRN Q5MIN PRN IV Acute Pain; Start 03/15/17 at 15:45; Stop 03/16/17 at 09:05; Status DC Fentanyl Citrate (Fentanyl 2ml Vial) 50 mcg PRN Q5MIN PRN IV Acute Pain Last administered on 03/15/17 15:58; Start 03/15/17 at 15:45; Stop 03/16/17 at 09:05 ; Status DC Morphine Sulfate 2 mg PRN Q10MIN PRN IV Mild Pain; Start 03/15/17 at 15:45; Stop 03/16/17 at 09:05; Status DC Morphine Sulfate 4 mg PRN Q10MIN PRN IV Moderate Pain; Start 03/15/17 at 15:45 ; Stop 03/16/17 at 09:05; Status DC Ondansetron HCl (Zofran) 4 mg PRN Q6HRS PRN IV Nausea, 1st Choice; Start at 15:45; Stop 03/16/17 at 09:05; Status DC Metoclopramide HCl (Reglan) 10 mg PRN Q6HRS PRN IV Nausea/Vomiting, 2nd Choice Last administered on 03/15/17 18:49; Start 03/15/17 at 15:45; Stop 03/16/17 at 15:44; Status DC Diphenhydramine HCl (Benadryl) 12.5 mg PRN Q2HR PRN IV ITCHING; Start 03/15/17 at 15:45; Stop 03/16/17 at 15:44; Status DC Albuterol Sulfate (Ventolin Neb Soln) 2.5 mg PRN 1X PRN NEB Shortness of Breath , Wheezing; Start 03/15/17 at 15:45; Stop 03/16/17 at 15:44; Status DC Dexamethasone Sodium Phosphate (Decadron) 8 mg 1X PRN PRN IV 3RD CHOICE FOR NAUSEA; Start 03/15/17 at 15:45; Stop 03/16/17 at 15:44; Status DC Meperidine HCl (Demerol) 10 mg 1X PERIOP PRN IV SHIVERING; Start 03/15/17 at 15 :45; Stop 03/16/17 at 15:44; Status DC Meperidine HCl (Demerol) 15 mg 1X PERIOP PRN IV SHIVERING; Start 03/15/17 at 15 :45; Stop 03/16/17 at 15:44; Status DC Prochlorperazine Edisylate (Compazine) 10 mg STK-MED ONCE .ROUTE ; Start at 15:48; Stop 03/15/17 at 15:49; Status DC Prochlorperazine Maleate (Compazine) 5 mg 1X PACU PRN PO NAUSEA/VOMITING; Start 03/15/17 at 16:00; Stop 03/19/17 at 19:03; Status DC Hydromorphone HCl (Dilaudid) 0.5 mg PRN Q10MIN PRN IV PAIN Last administered on 03/15/17 16:52; Start 03/15/17 at 16:15; Stop 03/16/17 at 09:05; Status DC Acetaminophen/ Hydrocodone Bitart (Lortab 5/325) 2 tab PRN Q4HRS PRN PO PAIN Last administered on 03/16/17 10:16; Start 03/16/17 at 09:15; Stop 03/16/17 at 13:05; Status DC Multivitamins (Thera M Plus) 1 tab DAILY PO Last administered on 03/27/17 11: 29; Start 03/16/17 at 13:00 Pantoprazole Sodium (Protonix) 40 mg DAILYAC PO Last administered on 03/20/17 08:48; Start 03/16/17 at 13:00; Stop 03/20/17 at 11:14; Status DC Oxycodone/ Acetaminophen (Percocet 7.5/ 325) 1 tab PRN Q4HRS PRN PO PAIN Last administered on 03/23/17 14:59; Start 03/16/17 at 13:15 Morphine Sulfate 4 mg PRN Q2HR PRN IV PAIN Last administered on 03/18/17 14:11 ; Start 03/16/17 at 13:15; Stop 03/27/17 at 12:51; Status DC Enoxaparin Sodium (Lovenox 40mg Syringe) 40 mg Q12HR SQ Last administered on 08:47; Start 03/16/17 at 21:00; Stop 03/20/17 at 16:57; Status DC Iohexol (Omnipaque 300 Mg/ml) 75 ml 1X ONCE IV Last administered on 03/17/17 08:00; Start 03/17/17 at 08:00; Stop 03/17/17 at 08:01; Status DC Iohexol (Omnipaque 240 Mg/ml) 50 ml 1X ONCE PO Last administered on 03/17/17 08:00; Start 03/17/17 at 08:00; Stop 03/17/17 at 08:01; Status DC Info (Do NOT chart on this entry -- for MONITORING) 1 each PRN DAILY PRN MC SEE COMMENTS; Start 03/17/17 at 07:45; Stop 03/19/17 at 07:44; Status DC Sodium Chloride 1,000 ml @ 1,000 mls/hr 1X ONCE IV Last administered on 08:00; Start 03/17/17 at 08:00; Stop 03/17/17 at 08:59; Status DC Vancomycin HCl (Vanco Per Pharmacy) 1 each PRN DAILY PRN MC SEE COMMENTS Last administered on 03/18/17 14:24; Start 03/17/17 at 08:00; Stop 03/19/17 at 11:10 ; Status DC Fluconazole/ Sodium Chloride 200 ml @ 100 mls/hr Q24H IV Last administered on 03/21/17 08:07; Start 03/17/17 at 09:00; Stop 03/21/17 at 09:24; Status DC Vancomycin HCl 2 gm/Sodium Chloride 500 ml @ 250 mls/hr 1X ONCE IV Last administered on 03/17/17 13:08; Start 03/17/17 at 09:00; Stop 03/17/17 at 10:59 ; Status DC Acetaminophen (Tylenol) 650 mg PRN Q6HRS PRN PO FEVER Last administered on 16:34; Start 03/17/17 at 08:15 Vancomycin HCl 2 gm/Sodium Chloride 500 ml @ 250 mls/hr Q8H IV Last administered on 03/19/17 05:41; Start 03/17/17 at 22:00; Stop 03/19/17 at 11:10 ; Status DC Vancomycin HCl 1 each 1X ONCE MC ; Start 03/18/17 at 13:30; Stop 03/18/17 at 13 :31; Status DC Calcium Carbonate/ Glycine (Tums) 1,000 mg PRN Q4HRS PRN PO INDIGESTION Last administered on 03/17/17 23:57; Start 03/17/17 at 23:45 Potassium Chloride (Klor-Con) 40 meq 1X ONCE PO Last administered on 14:14; Start 03/18/17 at 12:45; Stop 03/18/17 at 12:46; Status DC Vancomycin HCl 1 each 1X ONCE MC ; Start 03/19/17 at 13:30; Stop 03/19/17 at 13 :30; Status DC Sodium Chloride 1,000 ml @ 1,000 mls/hr 1X ONCE IV Last administered on 14:28; Start 03/19/17 at 12:15; Stop 03/19/17 at 13:14; Status DC Pantoprazole Sodium (Protonix) 40 mg BIDAC PO Last administered on 03/25/17 08:31; Start 03/20/17 at 16:30; Stop 03/25/17 at 16:05; Status DC Simethicone (Gas-X) 80 mg PRN AFTMEALHC PRN PO GAS / BLOATING Last administered on 03/22/17 08:55; Start 03/20/17 at 11:15 Al Hydroxide/Mg Hydroxide (Mylanta Plus Xs) 30 ml PRN Q2HR PRN PO HEARTBURN / GAS; Start 03/20/17 at 11:15 Enoxaparin Sodium (Lovenox 40mg Syringe) 40 mg DAILY SQ Last administered on 08:09; Start 03/21/17 at 09:00; Stop 03/22/17 at 12:42; Status DC Fluconazole/ Sodium Chloride 100 ml @ 100 mls/hr Q24H IV ; Start 03/22/17 at 09:00; Stop 03/22/17 at 09:00; Status DC Piperacillin Sod/ Tazobactam Sod 3.375 gm/Sodium Chloride 50 ml @ 100 mls/hr Q12HR IV ; Start 03/21/17 at 21:00; Stop 03/21/17 at 21:00; Status DC Fluconazole/ Sodium Chloride 100 ml @ 100 mls/hr Q24H IV Last administered on 03/22/17 09:30; Start 03/22/17 at 09:00; Stop 03/23/17 at 10:05; Status DC Piperacillin Sod/ Tazobactam Sod 2.25 gm/Sodium Chloride 50 ml @ 100 mls/hr Q6HRS IV Last administered on 03/23/17 05:58; Start 03/21/17 at 12:00; Stop 03/23/17 at 10:05; Status DC Ondansetron HCl (Zofran) 8 mg PRN Q8HRS PRN IV NAUESA, 1ST CHOICE Last administered on 03/25/17 06:17; Start 03/22/17 at 09:15 Prochlorperazine Edisylate (Compazine) 10 mg PRN Q8HRS PRN IV NAUSEA/VOMITING - 2nd choice Last administered on 03/25/17 10:23; Start 03/22/17 at 09:15 Amino Acids/ Glycerin/ Electrolytes 1,000 ml @ 80 mls/hr [id number] IV Last administered on 03/27/17 06:09; Start 03/22/17 at 11:45; Stop 03/27/17 at 21 :59; Status DC Heparin Sodium (Porcine) (Heparin Sq) 5,000 unit Q8HRS SQ Last administered on 03/25/17 06:07; Start 03/22/17 at 14:00; Stop 03/25/17 at 08:45; Status DC Loperamide HCl (Imodium) 2 mg PRN Q15MIN PRN PO DIARRHEA; Start 03/23/17 at 08 :00 Amoxicillin/ Clavulanate Potassium (Augmentin 500/ 125mg) 1 tab BID PO Last administered on 03/25/17 08:31; Start 03/23/17 at 10:30; Stop 03/25/17 at 14 :03; Status DC Promethazine HCl (Phenergan) 25 mg PRN Q6HRS PRN IN NAUSEA/VOMITING; Start 05/28 at 15:15 Furosemide (Lasix) 80 mg 1X ONCE IVP Last administered on 03/24/17 12:13; Start 03/24/17 at 11:30; Stop 03/24/17 at 11:31; Status DC Iohexol (Omnipaque 240 Mg/ml) 50 ml 1X ONCE PO Last administered on 09:30; Start 03/25/17 at 09:30; Stop 03/25/17 at 09:31; Status DC Iohexol (Omnipaque 240 Mg/ml) 50 ml 1X ONCE PO Last administered on 12:32; Start 03/25/17 at 12:30; Stop 03/25/17 at 12:31; Status DC Lorazepam (Ativan) 1 mg 1X ONCE IV Last administered on 03/25/17 13:40; Start 03/25/17 at 14:00; Stop 03/25/17 at 14:01; Status DC Piperacillin Sod/ Tazobactam Sod 2.25 gm/Sodium Chloride 50 ml @ 100 mls/hr Q8HRS IV Last administered on 03/29/17 05:39; Start 03/25/17 at 15:00 Levetiracetam 500 mg/Sodium Chloride 100 ml @ 400 mls/hr Q12HR IV ; Start at 15:00; Stop 03/25/17 at 15:00; Status DC Lorazepam (Ativan) 2 mg PRN Q1HR PRN IV SEIZURE Last administered on 14:30; Start 03/25/17 at 14:15; Stop 03/25/17 at 15:27; Status DC Levetiracetam 750 mg/Sodium Chloride 107.5 ml @ 400 mls/hr Q12HR IV Last administered on 03/28/17 21:02; Start 03/25/17 at 15:00; Stop 03/29/17 at 09 :12; Status DC Digoxin (Lanoxin) 500 mcg 1X ONCE IV Last administered on 03/25/17 14:34; Start 03/25/17 at 14:30; Stop 03/25/17 at 14:31; Status DC Norepinephrine Bitartrate 250 ml @ 0 mls/hr CONT PRN IV SEE I/O RECORD Last administered on 03/25/17 21:53; Start 03/25/17 at 14:30 Sodium Chloride 1,000 ml @ 1,000 mls/hr 1X ONCE IV Last administered on 03/25 15:38; Start 03/25/17 at 15:00; Stop 03/25/17 at 15:59; Status DC Lorazepam (Ativan) 2 mg PRN Q4HRS PRN IV SEIZURE Last administered on 15:55; Start 03/25/17 at 15:30 Propofol 100 ml @ As Directed STK-MED ONCE IV ; Start 03/25/17 at 15:28; Stop 03/25/17 at 15:29; Status DC Propofol 100 ml @ 0 mls/hr CONT PRN IV SEE I/O RECORD Last administered on 11:00; Start 03/25/17 at 15:45 Sodium Bicarbonate 150 meq 1X ONCE IV Last administered on 03/25/17 15:43; Start 03/25/17 at 16:00; Stop 03/25/17 at 16:01; Status DC Adenosine (Adenocard) 6 mg 1X ONCE IV Last administered on 03/25/17 15:42; Start 03/25/17 at 16:15; Stop 03/25/17 at 16:16; Status DC Adenosine (Adenocard) 12 mg 1X ONCE IV Last administered on 03/25/17 15:48; Start 03/25/17 at 16:00; Stop 03/25/17 at 16:01; Status DC Midazolam HCl (Versed) 5 mg 1X ONCE IV Last administered on 03/25/17 15:48; Start 03/25/17 at 16:00; Stop 03/25/17 at 16:01; Status DC Pantoprazole Sodium (Protonix Vial) 40 mg BID IVP Last administered on 11:59; Start 03/25/17 at 21:00 Sodium Chloride 1,000 ml @ 1,000 mls/hr Q1H PRN IV hypotension; Start at 16:30; Stop 03/25/17 at 22:29; Status DC Sodium Chloride (Normal Saline Flush) 10 ml 1X PRN PRN IV AP catheter pack; Start 03/25/17 at 16:30; Stop 03/26/17 at 08:54; Status DC Sodium Chloride (Normal Saline Flush) 10 ml 1X PRN PRN IV [employer] catheter pack; Start 03/25/17 at 16:30; Stop 03/26/17 at 08:54; Status DC Sodium Chloride 1,000 ml @ 400 mls/hr Q2H30M PRN IV PATENCY; Start 03/25/17 at 16:30; Stop 03/26/17 at 04:29; Status DC Info (PHARMACY MONITORING -- do not chart) 1 each PRN DAILY PRN MC SEE COMMENTS ; Start 03/25/17 at 16:30 Info (PHARMACY MONITORING -- do not chart) 1 each PRN DAILY PRN MC SEE COMMENTS ; Start 03/25/17 at 16:30; Status UNV Acetaminophen (Tylenol) 650 mg PRN Q6HRS PRN PEG MILD PAIN / TEMP Last administered on 03/25/17t 18:44; Start 03/25/17 at 18:30 Fentanyl Citrate 30 ml @ 0 mls/hr CONT PRN PRN IV PROTOCOL; Start 03/25/17 at 19:15 Sodium Chloride 1,000 ml @ 1,000 mls/hr Q1H PRN IV hypotension; Start at 08:46; Stop 03/26/17 at 14:45; Status DC Sodium Chloride (Normal Saline Flush) 10 ml 1X PRN PRN IV AP catheter pack; Start 03/26/17 at 09:00; Stop 03/27/17 at 08:59; Status DC Sodium Chloride (Normal Saline Flush) 10 ml 1X PRN PRN IV [employer] catheter pack; Start 03/26/17 at 09:00; Stop 03/27/17 at 08:59; Status DC Sodium Chloride 1,000 ml @ 400 mls/hr Q2H30M PRN IV PATENCY; Start 03/26/17 at 08:46; Stop 03/26/17 at 20:45; Status DC Info (PHARMACY MONITORING -- do not chart) 1 each PRN DAILY PRN MC SEE COMMENTS ; Start 03/26/17 at 09:00; Status UNV Info (PHARMACY MONITORING -- do not chart) 1 each PRN DAILY PRN MC SEE COMMENTS ; Start 03/26/17 at 09:00; Status UNV Levothyroxine Sodium 15 mcg/ Sodium Chloride 5 ml @ 100 mls/hr DAILY IVP Last administered on 03/29/17 12:00; Start 03/26/17 at 14:00 Chlorhexidine Gluconate (Peridex) 15 ml BID MM Last administered on 10/16/17at 07:45; Start 03/26/17 at 21:00; Stop 03/27/17 at 20:57; Status DC Heparin Sodium (Porcine) (Heparin Sq) 5,000 unit BID SQ Last administered on 12:04; Start 03/26/17 at 21:00 Heparin Sodium (Porcine) (Heparin Sodium) 10,000 unit STK-MED ONCE .ROUTE ; Start 03/27/17 at 08:15; Stop 03/27/17 at 08:16; Status DC Lidocaine/ Epinephrine (Xylocaine 1%-Epi 1:100,000) 20 ml STK-MED ONCE .ROUTE ; Start 03/27/17 at 08:15; Stop 03/27/17 at 08:16; Status DC Heparin Sodium/ Sodium Chloride 500 ml @ As Directed STK-MED ONCE .ROUTE ; Start 03/27/17 at 08:15; Stop 03/27/17 at 08:16; Status DC Heparin Sodium/ Sodium Chloride 1,000 unit 1X ONCE IART Last administered on 03/27/17 10:53; Start 03/27/17 at 10:30; Stop 03/27/17 at 10:45; Status DC Lidocaine/ Epinephrine (Xylocaine 1%-Epi 1:100,000) 20 ml 1X ONCE INJ Last administered on 03/27/17 10:53; Start 03/27/17 at 10:30; Stop 03/27/17 at 10 :45; Status DC Heparin Sodium (Porcine) (Heparin Sodium) 3,800 unit 1X ONCE INT CAT Last administered on 03/27/17 10:54; Start 03/27/17 at 10:30; Stop 03/27/17 at 10 :45; Status DC Darbepoetin Jean (Aranesp) 60 mcg [id number] SQ Last administered on 03/27/17 22:38; Start 03/27/17 at 21:00 Info 1 each PRN DAILY PRN MC SEE COMMENTS Last administered on 03/29/17 12:27 ; Start 03/27/17 at 13:45 Sodium Chloride 90 meq/Potassium Chloride 50 meq/ Potassium Phosphate 13.6 mmol/ Magnesium Sulfate 10 meq/ Calcium Gluconate 10 meq/ Multivitamins 10 ml/Chromium / Copper/Manganese/ Seleni/Zn 1 ml/ Total Parenteral Nutrition/Amino Acids/ Dextrose/ Fat Emulsion Intravenous 1,512 ml @ 63 mls/hr TPN CONT IV Last administered on 03/27/17t 22:37; Start 03/27/17 at 22:00; Stop 03/28/17 at 21 :59; Status DC Adenosine (Adenocard) 18 mg STK-MED ONCE IV ; Start 03/26/17 at 12:00; Stop at 14:50; Status DC Midazolam HCl (Versed) 5 mg STK-MED ONCE .ROUTE ; Start 03/26/17 at 12:00; Stop 03/27/17 at 14:50; Status DC Sodium Bicarbonate 150 meq STK-MED ONCE .ROUTE ; Start 03/26/17 at 12:00; Stop 03/27/17 at 14:50; Status DC Morphine Sulfate 2 mg PRN Q2HR PRN IV PAIN Last administered on 03/27/17t 15: 43; Start 03/27/17 at 15:30 Midazolam HCl (Versed) 5 mg STK-MED ONCE .ROUTE ; Start 03/25/17 at 12:00; Stop 03/27/17 at 15:30; Status DC Vecuronium Sproul (Norcuron Bolus) 10 mg STK-MED ONCE IV ; Start 03/25/17 at 12:00; Stop 03/27/17 at 15:30; Status DC Albumin Human 200 ml @ 200 mls/hr 1X PRN PRN IV Hypotension; Start 03/27/17 at 19:30; Stop 03/28/17 at 01:29; Status DC Sodium Chloride (Normal Saline Flush) 10 ml 1X PRN PRN IV AP catheter pack; Start 03/27/17 at 19:30; Stop 03/28/17 at 19:29; Status DC Sodium Chloride (Normal Saline Flush) 10 ml 1X PRN PRN IV [employer] catheter pack; Start 03/27/17 at 19:30; Stop 03/28/17 at 19:29; Status DC Info (PHARMACY MONITORING -- do not chart) 1 each PRN DAILY PRN MC SEE COMMENTS ; Start 03/27/17 at 19:30; Status UNV Info (PHARMACY MONITORING -- do not chart) 1 each PRN DAILY PRN MC SEE COMMENTS ; Start 03/27/17 at 19:30; Status UNV Sodium Chloride 90 meq/Potassium Chloride 50 meq/ Potassium Phosphate 13.6 mmol/ Magnesium Sulfate 10 meq/ Calcium Gluconate 5 meq/ Multivitamins 10 ml/Chromium / Copper/Manganese/ Seleni/Zn 1 ml/ Total Parenteral Nutrition/Amino Acids/ Dextrose/ Fat Emulsion Intravenous 1,512 ml @ 63 mls/hr TPN CONT IV Last administered on 03/28/17t 22:10; Start 03/28/17 at 22:00; Stop 03/29/17 at 21 :59 Levetiracetam (Keppra) 250 mg BID PO ; Start 03/29/17 at 21:00; Stop 03/31/17 at 09:01 Sodium Chloride 70 meq/Potassium Chloride 50 meq/ Potassium Phosphate 13.6 mmol/ Magnesium Sulfate 10 meq/ Calcium Gluconate 5 meq/ Multivitamins 10 ml/Chromium / Copper/Manganese/ Seleni/Zn 1 ml/ Total Parenteral Nutrition/Amino Acids/ Dextrose/ Fat Emulsion Intravenous 1,512 ml @ 63 mls/hr TPN CONT IV ; Start 03/29/17 at 22:00; Stop 03/30/17 at 21:59 Active Scripts Active Reported Multivitamins (Multivitamin) 1 Each Tablet 1 Tab PO DAILY Omeprazole 20 Mg Capsule.dr 1 Cap PO DAILY Vitals/I & O Vital Sign - Last 24 Hours 03/28/17 03/28/17 03/28/17 03/28/17 16:00 19:46 19:56 23:11 Temp 98.7 98.2 98.4 98.7 98.2 98.4 Pulse 101 98 101 Resp 17 B/P (MAP) 124/79 (94) 121/87 (98) 123/89 (100) Pulse Ox 94 93 94 O2 Delivery Nasal Cannula Nasal Cannula Nasal Cannula Nasal Cannula O2 Flow Rate 2.0 2.0 2.0 2.0 03/29/17 03/29/17 03/29/17 03/29/17 04:03 07:00 08:05 09:43 Temp 98.6 97.5 98.6 97.5 Pulse 117 103 Resp 22 B/P (MAP) 132/96 (108) 129/69 (89) Pulse Ox 92 O2 Delivery NonRebreather Mask NonRebreather Mask Venturi Mask BiPAP/CPAP O2 Flow Rate 40.0 40.0 12.0 03/29/17 10:56 Temp 97.6 97.6 Pulse 119 Resp 24 B/P (MAP) 141/97 (112) Pulse Ox 92 O2 Delivery NonRebreather Mask O2 Flow Rate 40.0 FLAKO WATT III DO Mar 29, 2017 12:44
[2017-03-29] MEDS: ONDANSETRON PF 4 MG/2 ML VIAL. IV PRN (13:45)
[2017-03-29] MEDS ORDERED: ALBUMIN HUMAN 25% 200 ML IV PRN (14:00)
[2017-03-29] MEDS ORDERED: IV NORMAL SALINE 1000ML BAG 1,000 ML IV PRN (14:00)
[2017-03-29] MEDS ORDERED: DIALYSIS PATIENT. MC PRN (14:00)
[2017-03-29] MEDS ORDERED: 0.9 % SODIUM CHLORIDE 10 ML DISP.SYRIN. IV PRN ×2 (14:00)
[2017-03-29] MEDS ORDERED: diphenhydrAMINE 50 MG/ML VIAL IV PRN ×2 (14:00)
--- NOTE | 2017-03-29 14:18 | PDOC ---
SUBJECTIVE ROS EMILY/ ATN Developed SOB this am and needed biPAP CVS: ? Orthopnea, no CP RESP: + SOB, no MONTALVO (not ambulated) GI: no Nausea, no Vomiting : no Dysuria, no Urgency - tillman inp lace OBJECTIVE Vital Signs Vital Signs Date Time Temp Pulse Resp B/P (MAP) Pulse Ox O2 Delivery O2 Flow Rate FiO2 03/29/17 10:56 97.6 119 24 141/97 (112) 92 NonRebreather Mask 40.0 97.6 PHYSICAL EXAM Physical Exam GEN: Awake , In mod resp distress EYES: Vision Unchanged, Conjunctiva Normal EN: No EN Drainage, Mucous Membranes moist NECK: no JVD, no JVP, Supple, no Thyromegaly CVS: S1S2, no Murmur, No Gallop, No Rub,no Edema; tachy RESP: rare Rales, no Rhonchi,min Acc. Muscle Use GI: BS hypoactive, NO Bruit, min Tender, Non Distended : no CVA tenderness, no Suprapubic Tenderness DIAGNOSIS/ASSESSMENT Assessment & Plan EMILY/ ATN - suspect CAN from 1st CT scan with IVF : Doubt Uremic Sz. Dialysis as below F 180 NR 3.5 Hrs 3 K 2.5 Ca 135 Na 35 HC03 Qb 350 + Qd 500+ Heparin 0 Units Uf 3-4 Kgs or to dry weight as tolerated May give 25-50 gms of 25% Albumin if needed to maintain Hemodynamic stability Treatment plan reviewed and discussed with director external communications hypoAlbuminemia - on TPN for now - IV Alb prn SOB - CXR is suggestive of Pulm edema despite -ve fluid balance; minmize TPN volume; IV lasix ^ed Na - remove from TPN Tachy arrhythmia - check Bl Cx ANEMIA: EPO prn HTN: Current BP meds as reviewed. See orders for changes. TPN management d/w Pharm D Discussed Plan of Care with family at bedside COMMENT/RELEVANT DATA Meds Current Medications Medications (Trade) Dose Ordered Sig/Mildred Start Time Stop Time Status Last Admin Dose Admin Acetaminophen (Tylenol) 650 mg PRN Q6HRS PRN 03/25/17 18:30 03/25/17 18:44 650 MG Acetaminophen/ Hydrocodone Bitart (Lortab 5/325) 2 tab PRN Q4HRS PRN 03/16/17 09:15 03/16/17 13:05 DC 03/16/17 10:16 2 TAB Adenosine (Adenocard) 18 mg STK-MED ONCE 03/26/17 12:00 03/27/17 14:50 DC Al Hydroxide/Mg Hydroxide (Mylanta Plus Xs) 30 ml PRN Q2HR PRN 03/20/17 11:15 Albumin Human 200 ml @ 200 mls/hr 1X PRN PRN 03/29/17 14:00 03/29/17 19:59 UNV Albuterol Sulfate (Ventolin Neb Soln) 2.5 mg PRN 1X PRN 03/15/17 15:45 03/16/17 15:44 DC Amino Acids/ Glycerin/ Electrolytes 1,000 ml @ 80 mls/hr [id number] 03/22/17 11:45 03/27/17 21:59 DC 03/27/17 06:09 80 MLS/HR Amoxicillin/ Clavulanate Potassium (Augmentin 500/ 125mg) 1 tab BID 03/23/17 10:30 03/25/17 14:03 DC 03/25/17 08:31 1 TAB Bupivacaine HCl/ Epinephrine Bitart (Marcaine-Epi 0.5%-1:[id number]) 50 ml STK-MED ONCE 03/15/17 13:07 03/15/17 14:08 DC 03/15/17 14:54 8 ML Calcium Carbonate/ Glycine (Tums) 1,000 mg PRN Q4HRS PRN 03/17/17 23:45 03/17/17 23:57 1,000 MG Cefoxitin Sodium 100 ml @ As Directed STK-MED ONCE 03/15/17 14:53 03/15/17 14:54 DC Cefoxitin Sodium 2 gm/Sodium Chloride 100 ml @ 200 mls/hr 1X PREOP 03/15/17 16:00 03/16/17 14:41 DC 03/15/17 14:55 200 MLS/HR Chlorhexidine Gluconate (Peridex) 15 ml BID 03/26/17 21:00 03/27/17 20:57 DC 03/27/17 07:45 15 ML Darbepoetin Jean (Aranesp) 60 mcg [id number] 03/27/17 21:00 03/27/17 22:38 60 MCG Dexamethasone Sodium Phosphate (Decadron) 8 mg 1X PRN PRN 03/15/17 15:45 03/16/17 15:44 DC Digoxin (Lanoxin) 500 mcg 1X ONCE 03/25/17 14:30 03/25/17 14:31 DC 03/25/17 14:34 500 MCG Diphenhydramine HCl (Benadryl) 25 mg 1X PRN PRN 03/29/17 14:00 03/30/17 13:59 UNV Docusate Sodium (Colace) 100 mg BID 03/15/17 21:00 03/17/17 13:04 100 MG Enoxaparin Sodium (Lovenox 40mg Syringe) 40 mg DAILY 03/21/17 09:00 03/22/17 12:42 DC 03/21/17 08:09 40 MG Fentanyl Citrate 30 ml @ 0 mls/hr CONT PRN PRN 03/25/17 19:15 Fentanyl Citrate (Fentanyl 2ml Vial) 50 mcg PRN Q5MIN PRN 03/15/17 15:45 03/16/17 09:05 DC 03/15/17 15:58 50 MCG Fluconazole/ Sodium Chloride 100 ml @ 100 mls/hr Q24H 03/22/17 09:00 03/23/17 10:05 DC 03/22/17 09:30 100 MLS/HR Furosemide (Lasix) 80 mg 1X ONCE 03/24/17 11:30 03/24/17 11:31 DC 03/24/17 12:13 80 MG Heparin Sodium (Porcine) (Heparin Sodium) 3,800 unit 1X ONCE 03/27/17 10:30 03/27/17 10:45 DC 03/27/17 10:54 3,800 UNIT Heparin Sodium (Porcine) (Heparin Sq) 5,000 unit BID 03/26/17 21:00 03/29/17 12:04 5,000 UNIT Heparin Sodium/ Sodium Chloride 1,000 unit 1X ONCE 03/27/17 10:30 03/27/17 10:45 DC 03/27/17 10:53 1,000 UNIT Hydromorphone HCl (Dilaudid) 0.5 mg PRN Q10MIN PRN 03/15/17 16:15 03/16/17 09:05 DC 03/15/17 16:52 0.5 MG Info (Do NOT chart on this entry -- for MONITORING) 1 each PRN DAILY PRN 03/17/17 07:45 03/19/17 07:44 DC Info (PHARMACY MONITORING -- do not chart) 1 each PRN DAILY PRN 03/29/17 14:00 UNV Iohexol (Omnipaque 240 Mg/ml) 50 ml 1X ONCE 03/25/17 12:30 03/25/17 12:31 DC 03/25/17 12:32 50 ML Iohexol (Omnipaque 300 Mg/ml) 75 ml 1X ONCE 03/17/17 08:00 03/17/17 08:01 DC 03/17/17 08:00 75 ML Ketorolac Tromethamine (Toradol) 15 mg PRN Q6HRS PRN 03/15/17 15:30 03/16/17 09:05 DC Levetiracetam (Keppra) 250 mg BID 03/29/17 21:00 03/31/17 09:01 Levetiracetam 500 mg/Sodium Chloride 100 ml @ 400 mls/hr Q12HR 03/25/17 15:00 03/25/17 15:00 DC Levetiracetam 750 mg/Sodium Chloride 107.5 ml @ 400 mls/hr Q12HR 03/25/17 15:00 03/29/17 09:12 DC 03/28/17 21:02 400 MLS/HR Levothyroxine Sodium 15 mcg/ Sodium Chloride 5 ml @ 100 mls/hr DAILY 03/26/17 14:00 03/29/17 12:00 100 MLS/HR Lidocaine HCl (Lidocaine Pf 2% Vial) 5 ml STK-MED ONCE 03/15/17 14:06 03/15/17 14:07 DC Lidocaine HCl (Xylocaine-Mpf 1% Vial) 0.5 ml 1X PRN PRN 03/15/17 15:45 03/16/17 15:44 DC Lidocaine/ Epinephrine (Xylocaine 1%-Epi 1:100,000) 20 ml 1X ONCE 03/27/17 10:30 03/27/17 10:45 DC 03/27/17 10:53 8 ML Loperamide HCl (Imodium) 2 mg PRN Q15MIN PRN 03/23/17 08:00 Lorazepam (Ativan) 2 mg PRN Q4HRS PRN 03/25/17 15:30 03/25/17 15:55 2 MG Meperidine HCl (Demerol) 15 mg 1X PERIOP PRN 03/15/17 15:45 03/16/17 15:44 DC Metoclopramide HCl (Reglan) 10 mg PRN Q6HRS PRN 03/15/17 15:45 03/16/17 15:44 DC 03/15/17 18:49 10 MG Midazolam HCl (Versed) 5 mg STK-MED ONCE 03/25/17 12:00 03/27/17 15:30 DC Morphine Sulfate 2 mg PRN Q2HR PRN 03/27/17 15:30 03/27/17 15:43 2 MG Multivitamins (Thera M Plus) 1 tab DAILY 03/16/17 13:00 03/27/17 11:29 1 TAB Norepinephrine Bitartrate 250 ml @ 0 mls/hr CONT PRN 03/25/17 14:30 03/25/17 21:53 28.125 MLS/HR Ondansetron HCl (Zofran) 8 mg PRN Q8HRS PRN 03/22/17 09:15 03/29/17 13:45 8 MG Oxycodone/ Acetaminophen (Percocet 7.5/ 325) 1 tab PRN Q4HRS PRN 03/16/17 13:15 03/23/17 14:59 1 TAB Pantoprazole Sodium (Protonix Vial) 40 mg BID 03/25/17 21:00 03/29/17 11:59 40 MG Pantoprazole Sodium (Protonix) 40 mg BIDAC 03/20/17 16:30 03/25/17 16:05 DC 03/25/17 08:31 40 MG Piperacillin Sod/ Tazobactam Sod 2.25 gm/Sodium Chloride 50 ml @ 100 mls/hr Q8HRS 03/25/17 15:00 03/29/17 05:39 100 MLS/HR Piperacillin Sod/ Tazobactam Sod 3.375 gm/Sodium Chloride 50 ml @ 100 mls/hr Q12HR 03/21/17 21:00 03/21/17 21:00 DC Potassium Chloride (Klor-Con) 40 meq 1X ONCE 03/18/17 12:45 03/18/17 12:46 DC 03/18/17 14:14 40 MEQ Prochlorperazine Edisylate (Compazine) 10 mg PRN Q8HRS PRN 03/22/17 09:15 03/25/17 10:23 10 MG Prochlorperazine Maleate (Compazine) 5 mg 1X PACU PRN 03/15/17 16:00 03/19/17 19:03 DC Promethazine HCl (Phenergan) 25 mg PRN Q6HRS PRN 03/23/17 15:15 Propofol 100 ml @ 0 mls/hr CONT PRN 03/25/17 15:45 03/27/17 11:00 23.1 MLS/HR Ringer's Solution 1,000 ml @ 125 mls/hr Q8H 03/15/17 15:42 03/15/17 21:41 DC Rocuronium Lamar (Zemuron) 100 mg STK-MED ONCE 03/15/17 14:07 03/15/17 14:08 DC Simethicone (Gas-X) 80 mg PRN AFTMEALHC PRN 03/20/17 11:15 03/22/17 08:55 80 MG Sodium Bicarbonate 150 meq STK-MED ONCE 03/26/17 12:00 03/27/17 14:50 DC Sodium Chloride (Normal Saline Flush) 10 ml 1X PRN PRN 03/29/17 14:00 03/30/17 13:59 UNV Sodium Chloride 70 meq/Potassium Chloride 50 meq/ Potassium Phosphate 13.6 mmol/Magnesium Sulfate 10 meq/ Calcium Gluconate 5 meq/ Multivitamins 10 ml/Chromium/ Copper/Manganese/ Seleni/Zn 1 ml/ Total Parenteral Nutrition/Amino Acids/Dextrose/ Fat Emulsion Intravenous 1,512 ml @ 63 mls/hr TPN CONT 03/29/17 22:00 03/30/17 21:59 Sodium Chloride 90 meq/Potassium Chloride 50 meq/ Potassium Phosphate 13.6 mmol/Magnesium Sulfate 10 meq/ Calcium Gluconate 5 meq/ Multivitamins 10 ml/Chromium/ Copper/Manganese/ Seleni/Zn 1 ml/ Total Parenteral Nutrition/Amino Acids/Dextrose/ Fat Emulsion Intravenous 1,512 ml @ 63 mls/hr TPN CONT 03/28/17 22:00 03/29/17 21:59 03/28/17 22:10 63 MLS/HR Sodium Chloride 90 meq/Potassium Chloride 50 meq/ Potassium Phosphate 13.6 mmol/Magnesium Sulfate 10 meq/ Calcium Gluconate 10 meq/ Multivitamins 10 ml/Chromium/ Copper/Manganese/ Seleni/Zn 1 ml/ Total Parenteral Nutrition/Amino Acids/Dextrose/ Fat Emulsion Intravenous 1,512 ml @ 63 mls/hr TPN CONT 03/27/17 22:00 03/28/17 21:59 DC 03/27/17 22:37 63 MLS/HR Succinylcholine Chloride (Anectine) 200 mg STK-MED ONCE 03/15/17 14:07 03/15/17 14:08 DC Vancomycin HCl 1 each 1X ONCE 03/19/17 13:30 03/19/17 13:30 DC Vancomycin HCl (Vanco Per Pharmacy) 1 each PRN DAILY PRN 03/17/17 08:00 03/19/17 11:10 DC 03/18/17 14:24 1 EACH Vancomycin HCl 2 gm/Sodium Chloride 500 ml @ 250 mls/hr Q8H 03/17/17 22:00 03/19/17 11:10 DC 03/19/17 05:41 250 MLS/HR Vecuronium Lamar (Norcuron Bolus) 10 mg STK-MED ONCE 03/25/17 12:00 03/27/17 15:30 DC Lab Laboratory Tests Test 03/29/17 04:00 03/29/17 05:43 03/29/17 10:30 03/29/17 11:59 White Blood Count 11.4 x10^3/uL (4.0-11.0) Red Blood Count 3.27 x10^6/uL (3.50-5.40) Hemoglobin 9.7 g/dL (12.0-15.5) Hematocrit 29.3 % (36.0-47.0) Mean Corpuscular Volume 90 fL (79-100) Mean Corpuscular Hemoglobin 30 pg (25-35) Mean Corpuscular Hemoglobin Concent 33 g/dL (31-37) Red Cell Distribution Width 15.9 % (11.5-14.5) Platelet Count 335 x10^3/uL (140-400) Neutrophils (%) (Auto) 78 % (31-73) Lymphocytes (%) (Auto) 14 % (24-48) Monocytes (%) (Auto) 6 % (0-9) Eosinophils (%) (Auto) 1 % (0-3) Basophils (%) (Auto) 1 % (0-3) Neutrophils # (Auto) 8.9 x10^3uL (1.8-7.7) Lymphocytes # (Auto) 1.6 x10^3/uL (1.0-4.8) Monocytes # (Auto) 0.7 x10^3/uL (0.0-1.1) Eosinophils # (Auto) 0.2 x10^3/uL (0.0-0.7) Basophils # (Auto) 0.1 x10^3/uL (0.0-0.2) Sodium Level 150 mmol/L (136-145) Potassium Level 4.0 mmol/L (3.5-5.1) Chloride Level 110 mmol/L (98-107) Carbon Dioxide Level 31 mmol/L (21-32) Anion Gap 9 (6-14) Blood Urea Nitrogen 26 mg/dL (7-20) Creatinine 3.3 mg/dL (0.6-1.0) Estimated GFR (Cockcroft-Gault) 16.6 Glucose Level 118 mg/dL (70-99) Calcium Level 8.7 mg/dL (8.5-10.1) Phosphorus Level 4.3 mg/dL (2.6-4.7) Magnesium Level 2.1 mg/dL (1.8-2.4) Triglycerides Level 174 mg/dL (0-150) Glucose (Fingerstick) 130 mg/dL (70-99) 132 mg/dL (70-99) O2 Saturation 93 % (92-99) Arterial Blood pH 7.42 (7.35-7.45) Arterial Blood pCO2 at Patient Temp 41 mmHg (35-46) Arterial Blood pO2 at Patient Temp 71 mmHg (85-108) Arterial Blood HCO3 26 mmol/L (21-28) Arterial Blood Base Excess 2 mmol/L (-3-3) FiO2 35 VETO VILLANUEVA MD Mar 29, 2017 14:18
--- NOTE | 2017-03-29 14:21 | PDOC ---
PROGRESS NOTES Subjective Subjective Patient is currently on O2 2l nasal cannula. HD on a MWF schedule. She denied having any chest pain, but had trouble breathing without the oxygen. No other acute events overnight. Most of the visit was spent on education for the family and discussion of the plan for treatment. It was discussed that further interventions may be medically unnecessary for someone of her age and circumstances, as she wasn't likely to have PR. Her family agreed to take a "wait and see" approach, where we give losartan and carvedilol and manage the patient conservatively to look for resolution of her cardiac issues. Objective Objective Vital Signs Date Time Temp Pulse Resp B/P (MAP) Pulse Ox O2 Delivery O2 Flow Rate FiO2 03/29/17 10:56 97.6 119 24 141/97 (112) 92 NonRebreather Mask 40.0 97.6 Physical Exam Abdomen: Soft, No tenderness Heart: Regular rate, Normal S1, Normal S2, No murmurs Extremities: Normal pulses, No tenderness/swelling General: Oriented X3, No acute distress HEENT: Atraumatic, PERRLA, EOMI Diagnosis DIAGNOSIS cardiomyopathy emily/atn acute respiratory failure seizure Problems: Assessment Assessment Patient is a 26 year old female who had acute respiratory failure on 03/25 with intubation. She was extubated successfully yesterday and is currently maintaining O2% goals on 2L nasal cannula 1. cardiomyopathy--unclear etiology; Echocardiogram showed EF 30% 2. acute respiratory failure--s/p extubation on 03/27/17 3. EMILY/ATN--currently on MWF HD; catheter placed 03/27/17 4. hypotension--resolved; currently off pressors 5. seizure--currently on Keppra Plan Plan of Care Will Start Carvedilol and Losartan when possible needs evaluation for COURTNEY appears to be improving clinically Comment Review of Relevant I have reviewed the following items na (where applicable) has been applied. Labs Laboratory Tests Test 03/28/17 05:00 03/29/17 04:00 03/29/17 05:43 03/29/17 10:30 White Blood Count 11.7 x10^3/uL (4.0-11.0) 11.4 x10^3/uL (4.0-11.0) Red Blood Count 3.34 x10^6/uL (3.50-5.40) 3.27 x10^6/uL (3.50-5.40) Hemoglobin 10.1 g/dL (12.0-15.5) 9.7 g/dL (12.0-15.5) Hematocrit 29.9 % (36.0-47.0) 29.3 % (36.0-47.0) Mean Corpuscular Volume 90 fL (79-100) 90 fL (79-100) Mean Corpuscular Hemoglobin 30 pg (25-35) 30 pg (25-35) Mean Corpuscular Hemoglobin Concent 34 g/dL (31-37) 33 g/dL (31-37) Red Cell Distribution Width 15.6 % (11.5-14.5) 15.9 % (11.5-14.5) Platelet Count 301 x10^3/uL (140-400) 335 x10^3/uL (140-400) Neutrophils (%) (Auto) 74 % (31-73) 78 % (31-73) Lymphocytes (%) (Auto) 17 % (24-48) 14 % (24-48) Monocytes (%) (Auto) 6 % (0-9) 6 % (0-9) Eosinophils (%) (Auto) 2 % (0-3) 1 % (0-3) Basophils (%) (Auto) 1 % (0-3) 1 % (0-3) Neutrophils # (Auto) 8.6 x10^3uL (1.8-7.7) 8.9 x10^3uL (1.8-7.7) Lymphocytes # (Auto) 2.0 x10^3/uL (1.0-4.8) 1.6 x10^3/uL (1.0-4.8) Monocytes # (Auto) 0.7 x10^3/uL (0.0-1.1) 0.7 x10^3/uL (0.0-1.1) Eosinophils # (Auto) 0.2 x10^3/uL (0.0-0.7) 0.2 x10^3/uL (0.0-0.7) Basophils # (Auto) 0.1 x10^3/uL (0.0-0.2) 0.1 x10^3/uL (0.0-0.2) Sodium Level 145 mmol/L (136-145) 150 mmol/L (136-145) Potassium Level 3.7 mmol/L (3.5-5.1) 4.0 mmol/L (3.5-5.1) Chloride Level 107 mmol/L (98-107) 110 mmol/L (98-107) Carbon Dioxide Level 31 mmol/L (21-32) 31 mmol/L (21-32) Anion Gap 7 (6-14) 9 (6-14) Blood Urea Nitrogen 21 mg/dL (7-20) 26 mg/dL (7-20) Creatinine 2.9 mg/dL (0.6-1.0) 3.3 mg/dL (0.6-1.0) Estimated GFR (Cockcroft-Gault) 19.3 16.6 Glucose Level 110 mg/dL (70-99) 118 mg/dL (70-99) Glucose (Fingerstick) 111 mg/dL (70-99) 130 mg/dL (70-99) Calcium Level 8.9 mg/dL (8.5-10.1) 8.7 mg/dL (8.5-10.1) Phosphorus Level 3.7 mg/dL (2.6-4.7) 4.3 mg/dL (2.6-4.7) Magnesium Level 1.9 mg/dL (1.8-2.4) 2.1 mg/dL (1.8-2.4) Triglycerides Level 174 mg/dL (0-150) O2 Saturation 93 % (92-99) Arterial Blood pH 7.42 (7.35-7.45) Arterial Blood pCO2 at Patient Temp 41 mmHg (35-46) Arterial Blood pO2 at Patient Temp 71 mmHg (85-108) Arterial Blood HCO3 26 mmol/L (21-28) Arterial Blood Base Excess 2 mmol/L (-3-3) FiO2 35 Test 03/29/17 11:59 Glucose (Fingerstick) 132 mg/dL (70-99) Laboratory Tests Test 03/29/17 04:00 03/29/17 05:43 03/29/17 10:30 03/29/17 11:59 White Blood Count 11.4 x10^3/uL (4.0-11.0) Red Blood Count 3.27 x10^6/uL (3.50-5.40) Hemoglobin 9.7 g/dL (12.0-15.5) Hematocrit 29.3 % (36.0-47.0) Mean Corpuscular Volume 90 fL (79-100) Mean Corpuscular Hemoglobin 30 pg (25-35) Mean Corpuscular Hemoglobin Concent 33 g/dL (31-37) Red Cell Distribution Width 15.9 % (11.5-14.5) Platelet Count 335 x10^3/uL (140-400) Neutrophils (%) (Auto) 78 % (31-73) Lymphocytes (%) (Auto) 14 % (24-48) Monocytes (%) (Auto) 6 % (0-9) Eosinophils (%) (Auto) 1 % (0-3) Basophils (%) (Auto) 1 % (0-3) Neutrophils # (Auto) 8.9 x10^3uL (1.8-7.7) Lymphocytes # (Auto) 1.6 x10^3/uL (1.0-4.8) Monocytes # (Auto) 0.7 x10^3/uL (0.0-1.1) Eosinophils # (Auto) 0.2 x10^3/uL (0.0-0.7) Basophils # (Auto) 0.1 x10^3/uL (0.0-0.2) Sodium Level 150 mmol/L (136-145) Potassium Level 4.0 mmol/L (3.5-5.1) Chloride Level 110 mmol/L (98-107) Carbon Dioxide Level 31 mmol/L (21-32) Anion Gap 9 (6-14) Blood Urea Nitrogen 26 mg/dL (7-20) Creatinine 3.3 mg/dL (0.6-1.0) Estimated GFR (Cockcroft-Gault) 16.6 Glucose Level 118 mg/dL (70-99) Calcium Level 8.7 mg/dL (8.5-10.1) Phosphorus Level 4.3 mg/dL (2.6-4.7) Magnesium Level 2.1 mg/dL (1.8-2.4) Triglycerides Level 174 mg/dL (0-150) Glucose (Fingerstick) 130 mg/dL (70-99) 132 mg/dL (70-99) O2 Saturation 93 % (92-99) Arterial Blood pH 7.42 (7.35-7.45) Arterial Blood pCO2 at Patient Temp 41 mmHg (35-46) Arterial Blood pO2 at Patient Temp 71 mmHg (85-108) Arterial Blood HCO3 26 mmol/L (21-28) Arterial Blood Base Excess 2 mmol/L (-3-3) FiO2 35 Microbiology 03/25/17 Blood Culture - Preliminary, Resulted NO GROWTH AFTER 3 DAYS Medications Current Medications Dexamethasone Sodium Phosphate (Decadron) 20 mg STK-MED ONCE .ROUTE ; Start 03/15/17 at 14:06; Stop 03/15/17 at 14:07; Status DC Ondansetron HCl (Zofran) 4 mg STK-MED ONCE .ROUTE ; Start 03/15/17 at 14:06; Stop 03/15/17 at 14:07; Status DC Propofol 20 ml @ As Directed STK-MED ONCE IV ; Start 03/15/17 at 14:06; Stop at 14:07; Status DC Lidocaine HCl (Lidocaine Pf 2% Vial) 5 ml STK-MED ONCE .ROUTE ; Start 03/15/17 at 14:06; Stop 03/15/17 at 14:07; Status DC Midazolam HCl (Versed) 2 mg STK-MED ONCE .ROUTE ; Start 03/15/17 at 14:06; Stop 03/15/17 at 14:07; Status DC Fentanyl Citrate (Fentanyl 2ml Vial) 100 mcg STK-MED ONCE .ROUTE ; Start at 14:06; Stop 03/15/17 at 14:07; Status DC Rocuronium Hubbard (Zemuron) 100 mg STK-MED ONCE .ROUTE ; Start 03/15/17 at 14: 07; Stop 03/15/17 at 14:08; Status DC Succinylcholine Chloride (Anectine) 200 mg STK-MED ONCE .ROUTE ; Start 03/15/17 at 14:07; Stop 03/15/17 at 14:08; Status DC Bupivacaine HCl/ Epinephrine Bitart (Marcaine-Epi 0.5%-[id number]) 50 ml STK-MED ONCE .ROUTE Last administered on 03/15/17t 14:54; Start 03/15/17 at 13:07; Stop 03/15/17 at 14:08; Status DC Cefoxitin Sodium 2 gm/Sodium Chloride 100 ml @ 200 mls/hr 1X PREOP IV Last administered on 03/15/17 14:55; Start 03/15/17 at 16:00; Stop 03/16/17 at 14:41 ; Status DC Sodium Chloride 1,000 ml @ 125 mls/hr 1X ONCE IV Last administered on 14:15; Start 03/15/17 at 14:15; Stop 03/15/17 at 22:14; Status DC Cefoxitin Sodium 100 ml @ As Directed STK-MED ONCE IV ; Start 03/15/17 at 14:53 ; Stop 03/15/17 at 14:54; Status DC Enoxaparin Sodium (Lovenox 40mg Syringe) 40 mg Q24H SQ ; Start 03/15/17 at 15:30 ; Stop 03/16/17 at 14:38; Status DC Sodium Chloride (Normal Saline Flush) 3 ml QSHIFT PRN IV AFTER MEDS AND BLOOD DRAWS; Start 03/15/17 at 15:30 Ringer's Solution 1,000 ml @ 75 mls/hr [id number] IV Last administered on 21:12; Start 03/15/17 at 15:19; Stop 03/27/17 at 12:51; Status DC Acetaminophen/ Hydrocodone Bitart (Lortab 5/325) 1 tab PRN Q4HRS PRN PO MILD PAIN Last administered on 03/16/17 02:56; Start 03/15/17 at 15:30; Stop at 13:05; Status DC Ketorolac Tromethamine (Toradol) 15 mg PRN Q6HRS PRN IV PAIN; Start 03/15/17 at 15:30; Stop 03/16/17 at 09:05; Status DC Morphine Sulfate 2 mg PRN Q1HR PRN IV PAIN Last administered on 03/22/17 09: 36; Start 03/15/17 at 15:30; Stop 03/27/17 at 12:51; Status DC Docusate Sodium (Colace) 100 mg BID PO Last administered on 03/17/17 13:04; Start 03/15/17 at 21:00 Ondansetron HCl (Zofran) 4 mg PRN Q6HRS PRN IV NAUESA, 1ST CHOICE Last administered on 03/22/17 06:34; Start 03/15/17 at 15:30; Stop 03/22/17 at 09: 09; Status DC Piperacillin Sod/ Tazobactam Sod 3.375 gm/Sodium Chloride 50 ml @ 100 mls/hr Q6HRS IV Last administered on 03/21/17 06:20; Start 03/15/17 at 18:00; Stop 03/21/17 at 09:24; Status DC Morphine Sulfate 10 mg STK-MED ONCE .ROUTE ; Start 03/15/17 at 15:32; Stop 03/15 at 15:33; Status DC Ringer's Solution 1,000 ml @ 125 mls/hr Q8H IV Last administered on 03/16/17 00:51; Start 03/15/17 at 15:42; Stop 03/16/17 at 03:41; Status DC Lidocaine HCl (Xylocaine-Mpf 1% Vial) 0.5 ml 1X PRN PRN INJ IV START; Start at 15:45; Stop 03/16/17 at 15:44; Status DC Ringer's Solution 1,000 ml @ 125 mls/hr Q8H IV ; Start 03/15/17 at 15:42; Stop 03/15/17 at 21:41; Status DC Fentanyl Citrate (Fentanyl 2ml Vial) 25 mcg PRN Q5MIN PRN IV Acute Pain; Start 03/15/17 at 15:45; Stop 03/16/17 at 09:05; Status DC Fentanyl Citrate (Fentanyl 2ml Vial) 50 mcg PRN Q5MIN PRN IV Acute Pain Last administered on 03/15/17 15:58; Start 03/15/17 at 15:45; Stop 03/16/17 at 09:05 ; Status DC Morphine Sulfate 2 mg PRN Q10MIN PRN IV Mild Pain; Start 03/15/17 at 15:45; Stop 03/16/17 at 09:05; Status DC Morphine Sulfate 4 mg PRN Q10MIN PRN IV Moderate Pain; Start 03/15/17 at 15:45 ; Stop 03/16/17 at 09:05; Status DC Ondansetron HCl (Zofran) 4 mg PRN Q6HRS PRN IV Nausea, 1st Choice; Start at 15:45; Stop 03/16/17 at 09:05; Status DC Metoclopramide HCl (Reglan) 10 mg PRN Q6HRS PRN IV Nausea/Vomiting, 2nd Choice Last administered on 03/15/17 18:49; Start 03/15/17 at 15:45; Stop 03/16/17 at 15:44; Status DC Diphenhydramine HCl (Benadryl) 12.5 mg PRN Q2HR PRN IV ITCHING; Start 03/15/17 at 15:45; Stop 03/16/17 at 15:44; Status DC Albuterol Sulfate (Ventolin Neb Soln) 2.5 mg PRN 1X PRN NEB Shortness of Breath , Wheezing; Start 03/15/17 at 15:45; Stop 03/16/17 at 15:44; Status DC Dexamethasone Sodium Phosphate (Decadron) 8 mg 1X PRN PRN IV 3RD CHOICE FOR NAUSEA; Start 03/15/17 at 15:45; Stop 03/16/17 at 15:44; Status DC Meperidine HCl (Demerol) 10 mg 1X PERIOP PRN IV SHIVERING; Start 03/15/17 at 15 :45; Stop 03/16/17 at 15:44; Status DC Meperidine HCl (Demerol) 15 mg 1X PERIOP PRN IV SHIVERING; Start 03/15/17 at 15 :45; Stop 03/16/17 at 15:44; Status DC Prochlorperazine Edisylate (Compazine) 10 mg STK-MED ONCE .ROUTE ; Start at 15:48; Stop 03/15/17 at 15:49; Status DC Prochlorperazine Maleate (Compazine) 5 mg 1X PACU PRN PO NAUSEA/VOMITING; Start 03/15/17 at 16:00; Stop 03/19/17 at 19:03; Status DC Hydromorphone HCl (Dilaudid) 0.5 mg PRN Q10MIN PRN IV PAIN Last administered on 03/15/17 16:52; Start 03/15/17 at 16:15; Stop 03/16/17 at 09:05; Status DC Acetaminophen/ Hydrocodone Bitart (Lortab 5/325) 2 tab PRN Q4HRS PRN PO PAIN Last administered on 03/16/17 10:16; Start 03/16/17 at 09:15; Stop 03/16/17 at 13:05; Status DC Multivitamins (Thera M Plus) 1 tab DAILY PO Last administered on 03/27/17 11: 29; Start 03/16/17 at 13:00 Pantoprazole Sodium (Protonix) 40 mg DAILYAC PO Last administered on 03/20/17 08:48; Start 03/16/17 at 13:00; Stop 03/20/17 at 11:14; Status DC Oxycodone/ Acetaminophen (Percocet 7.5/ 325) 1 tab PRN Q4HRS PRN PO PAIN Last administered on 03/23/17 14:59; Start 03/16/17 at 13:15 Morphine Sulfate 4 mg PRN Q2HR PRN IV PAIN Last administered on 03/18/17 14:11 ; Start 03/16/17 at 13:15; Stop 03/27/17 at 12:51; Status DC Enoxaparin Sodium (Lovenox 40mg Syringe) 40 mg Q12HR SQ Last administered on 08:47; Start 03/16/17 at 21:00; Stop 03/20/17 at 16:57; Status DC Iohexol (Omnipaque 300 Mg/ml) 75 ml 1X ONCE IV Last administered on 03/17/17 08:00; Start 03/17/17 at 08:00; Stop 03/17/17 at 08:01; Status DC Iohexol (Omnipaque 240 Mg/ml) 50 ml 1X ONCE PO Last administered on 03/17/17 08:00; Start 03/17/17 at 08:00; Stop 03/17/17 at 08:01; Status DC Info (Do NOT chart on this entry -- for MONITORING) 1 each PRN DAILY PRN MC SEE COMMENTS; Start 03/17/17 at 07:45; Stop 03/19/17 at 07:44; Status DC Sodium Chloride 1,000 ml @ 1,000 mls/hr 1X ONCE IV Last administered on 08:00; Start 03/17/17 at 08:00; Stop 03/17/17 at 08:59; Status DC Vancomycin HCl (Vanco Per Pharmacy) 1 each PRN DAILY PRN MC SEE COMMENTS Last administered on 03/18/17 14:24; Start 03/17/17 at 08:00; Stop 03/19/17 at 11:10 ; Status DC Fluconazole/ Sodium Chloride 200 ml @ 100 mls/hr Q24H IV Last administered on 03/21/17 08:07; Start 03/17/17 at 09:00; Stop 03/21/17 at 09:24; Status DC Vancomycin HCl 2 gm/Sodium Chloride 500 ml @ 250 mls/hr 1X ONCE IV Last administered on 03/17/17 13:08; Start 03/17/17 at 09:00; Stop 03/17/17 at 10:59 ; Status DC Acetaminophen (Tylenol) 650 mg PRN Q6HRS PRN PO FEVER Last administered on 16:34; Start 03/17/17 at 08:15 Vancomycin HCl 2 gm/Sodium Chloride 500 ml @ 250 mls/hr Q8H IV Last administered on 03/19/17 05:41; Start 03/17/17 at 22:00; Stop 03/19/17 at 11:10 ; Status DC Vancomycin HCl 1 each 1X ONCE MC ; Start 03/18/17 at 13:30; Stop 03/18/17 at 13 :31; Status DC Calcium Carbonate/ Glycine (Tums) 1,000 mg PRN Q4HRS PRN PO INDIGESTION Last administered on 03/17/17 23:57; Start 03/17/17 at 23:45 Potassium Chloride (Klor-Con) 40 meq 1X ONCE PO Last administered on 14:14; Start 03/18/17 at 12:45; Stop 03/18/17 at 12:46; Status DC Vancomycin HCl 1 each 1X ONCE MC ; Start 03/19/17 at 13:30; Stop 03/19/17 at 13 :30; Status DC Sodium Chloride 1,000 ml @ 1,000 mls/hr 1X ONCE IV Last administered on 14:28; Start 03/19/17 at 12:15; Stop 03/19/17 at 13:14; Status DC Pantoprazole Sodium (Protonix) 40 mg BIDAC PO Last administered on 03/25/17 08:31; Start 03/20/17 at 16:30; Stop 03/25/17 at 16:05; Status DC Simethicone (Gas-X) 80 mg PRN AFTMEALHC PRN PO GAS / BLOATING Last administered on 03/22/17 08:55; Start 03/20/17 at 11:15 Al Hydroxide/Mg Hydroxide (Mylanta Plus Xs) 30 ml PRN Q2HR PRN PO HEARTBURN / GAS; Start 03/20/17 at 11:15 Enoxaparin Sodium (Lovenox 40mg Syringe) 40 mg DAILY SQ Last administered on 08:09; Start 03/21/17 at 09:00; Stop 03/22/17 at 12:42; Status DC Fluconazole/ Sodium Chloride 100 ml @ 100 mls/hr Q24H IV ; Start 03/22/17 at 09:00; Stop 03/22/17 at 09:00; Status DC Piperacillin Sod/ Tazobactam Sod 3.375 gm/Sodium Chloride 50 ml @ 100 mls/hr Q12HR IV ; Start 03/21/17 at 21:00; Stop 03/21/17 at 21:00; Status DC Fluconazole/ Sodium Chloride 100 ml @ 100 mls/hr Q24H IV Last administered on 03/22/17 09:30; Start 03/22/17 at 09:00; Stop 03/23/17 at 10:05; Status DC Piperacillin Sod/ Tazobactam Sod 2.25 gm/Sodium Chloride 50 ml @ 100 mls/hr Q6HRS IV Last administered on 03/23/17 05:58; Start 03/21/17 at 12:00; Stop 03/23/17 at 10:05; Status DC Ondansetron HCl (Zofran) 8 mg PRN Q8HRS PRN IV NAUESA, 1ST CHOICE Last administered on 03/29/17 13:45; Start 03/22/17 at 09:15 Prochlorperazine Edisylate (Compazine) 10 mg PRN Q8HRS PRN IV NAUSEA/VOMITING - 2nd choice Last administered on 03/25/17 10:23; Start 03/22/17 at 09:15 Amino Acids/ Glycerin/ Electrolytes 1,000 ml @ 80 mls/hr [id number] IV Last administered on 03/27/17 06:09; Start 03/22/17 at 11:45; Stop 03/27/17 at 21 :59; Status DC Heparin Sodium (Porcine) (Heparin Sq) 5,000 unit Q8HRS SQ Last administered on 03/25/17 06:07; Start 03/22/17 at 14:00; Stop 03/25/17 at 08:45; Status DC Loperamide HCl (Imodium) 2 mg PRN Q15MIN PRN PO DIARRHEA; Start 03/23/17 at 08 :00 Amoxicillin/ Clavulanate Potassium (Augmentin 500/ 125mg) 1 tab BID PO Last administered on 03/25/17 08:31; Start 03/23/17 at 10:30; Stop 03/25/17 at 14 :03; Status DC Promethazine HCl (Phenergan) 25 mg PRN Q6HRS PRN NE NAUSEA/VOMITING; Start 05/28 at 15:15 Furosemide (Lasix) 80 mg 1X ONCE IVP Last administered on 03/24/17 12:13; Start 03/24/17 at 11:30; Stop 03/24/17 at 11:31; Status DC Iohexol (Omnipaque 240 Mg/ml) 50 ml 1X ONCE PO Last administered on 09:30; Start 03/25/17 at 09:30; Stop 03/25/17 at 09:31; Status DC Iohexol (Omnipaque 240 Mg/ml) 50 ml 1X ONCE PO Last administered on 12:32; Start 03/25/17 at 12:30; Stop 03/25/17 at 12:31; Status DC Lorazepam (Ativan) 1 mg 1X ONCE IV Last administered on 03/25/17 13:40; Start 03/25/17 at 14:00; Stop 03/25/17 at 14:01; Status DC Piperacillin Sod/ Tazobactam Sod 2.25 gm/Sodium Chloride 50 ml @ 100 mls/hr Q8HRS IV Last administered on 03/29/17 05:39; Start 03/25/17 at 15:00 Levetiracetam 500 mg/Sodium Chloride 100 ml @ 400 mls/hr Q12HR IV ; Start at 15:00; Stop 03/25/17 at 15:00; Status DC Lorazepam (Ativan) 2 mg PRN Q1HR PRN IV SEIZURE Last administered on 14:30; Start 03/25/17 at 14:15; Stop 03/25/17 at 15:27; Status DC Levetiracetam 750 mg/Sodium Chloride 107.5 ml @ 400 mls/hr Q12HR IV Last administered on 03/28/17 21:02; Start 03/25/17 at 15:00; Stop 03/29/17 at 09 :12; Status DC Digoxin (Lanoxin) 500 mcg 1X ONCE IV Last administered on 03/25/17 14:34; Start 03/25/17 at 14:30; Stop 03/25/17 at 14:31; Status DC Norepinephrine Bitartrate 250 ml @ 0 mls/hr CONT PRN IV SEE I/O RECORD Last administered on 03/25/17 21:53; Start 03/25/17 at 14:30 Sodium Chloride 1,000 ml @ 1,000 mls/hr 1X ONCE IV Last administered on 03/25 15:38; Start 03/25/17 at 15:00; Stop 03/25/17 at 15:59; Status DC Lorazepam (Ativan) 2 mg PRN Q4HRS PRN IV SEIZURE Last administered on 15:55; Start 03/25/17 at 15:30 Propofol 100 ml @ As Directed STK-MED ONCE IV ; Start 03/25/17 at 15:28; Stop 03/25/17 at 15:29; Status DC Propofol 100 ml @ 0 mls/hr CONT PRN IV SEE I/O RECORD Last administered on 11:00; Start 03/25/17 at 15:45 Sodium Bicarbonate 150 meq 1X ONCE IV Last administered on 03/25/17 15:43; Start 03/25/17 at 16:00; Stop 03/25/17 at 16:01; Status DC Adenosine (Adenocard) 6 mg 1X ONCE IV Last administered on 03/25/17 15:42; Start 03/25/17 at 16:15; Stop 03/25/17 at 16:16; Status DC Adenosine (Adenocard) 12 mg 1X ONCE IV Last administered on 10/14/17at 15:48; Start 03/25/17 at 16:00; Stop 03/25/17 at 16:01; Status DC Midazolam HCl (Versed) 5 mg 1X ONCE IV Last administered on 03/25/17 15:48; Start 03/25/17 at 16:00; Stop 03/25/17 at 16:01; Status DC Pantoprazole Sodium (Protonix Vial) 40 mg BID IVP Last administered on 11:59; Start 03/25/17 at 21:00 Sodium Chloride 1,000 ml @ 1,000 mls/hr Q1H PRN IV hypotension; Start at 16:30; Stop 03/25/17 at 22:29; Status DC Sodium Chloride (Normal Saline Flush) 10 ml 1X PRN PRN IV AP catheter pack; Start 03/25/17 at 16:30; Stop 03/26/17 at 08:54; Status DC Sodium Chloride (Normal Saline Flush) 10 ml 1X PRN PRN IV PILATES INSTRUCTOR catheter pack; Start 03/25/17 at 16:30; Stop 03/26/17 at 08:54; Status DC Sodium Chloride 1,000 ml @ 400 mls/hr Q2H30M PRN IV PATENCY; Start 03/25/17 at 16:30; Stop 03/26/17 at 04:29; Status DC Info (PHARMACY MONITORING -- do not chart) 1 each PRN DAILY PRN MC SEE COMMENTS ; Start 03/25/17 at 16:30 Info (PHARMACY MONITORING -- do not chart) 1 each PRN DAILY PRN MC SEE COMMENTS ; Start 03/25/17 at 16:30; Status UNV Acetaminophen (Tylenol) 650 mg PRN Q6HRS PRN PEG MILD PAIN / TEMP Last administered on 03/25/17 18:44; Start 03/25/17 at 18:30 Fentanyl Citrate 30 ml @ 0 mls/hr CONT PRN PRN IV PROTOCOL; Start 03/25/17 at 19:15 Sodium Chloride 1,000 ml @ 1,000 mls/hr Q1H PRN IV hypotension; Start at 08:46; Stop 03/26/17 at 14:45; Status DC Sodium Chloride (Normal Saline Flush) 10 ml 1X PRN PRN IV AP catheter pack; Start 03/26/17 at 09:00; Stop 03/27/17 at 08:59; Status DC Sodium Chloride (Normal Saline Flush) 10 ml 1X PRN PRN IV PILATES INSTRUCTOR catheter pack; Start 03/26/17 at 09:00; Stop 03/27/17 at 08:59; Status DC Sodium Chloride 1,000 ml @ 400 mls/hr Q2H30M PRN IV PATENCY; Start 03/26/17 at 08:46; Stop 03/26/17 at 20:45; Status DC Info (PHARMACY MONITORING -- do not chart) 1 each PRN DAILY PRN MC SEE COMMENTS ; Start 03/26/17 at 09:00; Status UNV Info (PHARMACY MONITORING -- do not chart) 1 each PRN DAILY PRN MC SEE COMMENTS ; Start 03/26/17 at 09:00; Status UNV Levothyroxine Sodium 15 mcg/ Sodium Chloride 5 ml @ 100 mls/hr DAILY IVP Last administered on 03/29/17 12:00; Start 03/26/17 at 14:00 Chlorhexidine Gluconate (Peridex) 15 ml BID MM Last administered on 03/27/17 07:45; Start 03/26/17 at 21:00; Stop 03/27/17 at 20:57; Status DC Heparin Sodium (Porcine) (Heparin Sq) 5,000 unit BID SQ Last administered on 12:04; Start 03/26/17 at 21:00 Heparin Sodium (Porcine) (Heparin Sodium) 10,000 unit STK-MED ONCE .ROUTE ; Start 03/27/17 at 08:15; Stop 03/27/17 at 08:16; Status DC Lidocaine/ Epinephrine (Xylocaine 1%-Epi 1:100,000) 20 ml STK-MED ONCE .ROUTE ; Start 03/27/17 at 08:15; Stop 03/27/17 at 08:16; Status DC Heparin Sodium/ Sodium Chloride 500 ml @ As Directed STK-MED ONCE .ROUTE ; Start 03/27/17 at 08:15; Stop 03/27/17 at 08:16; Status DC Heparin Sodium/ Sodium Chloride 1,000 unit 1X ONCE IART Last administered on 03/27/17 10:53; Start 03/27/17 at 10:30; Stop 03/27/17 at 10:45; Status DC Lidocaine/ Epinephrine (Xylocaine 1%-Epi 1:100,000) 20 ml 1X ONCE INJ Last administered on 03/27/17 10:53; Start 03/27/17 at 10:30; Stop 03/27/17 at 10 :45; Status DC Heparin Sodium (Porcine) (Heparin Sodium) 3,800 unit 1X ONCE INT CAT Last administered on 03/27/17 10:54; Start 03/27/17 at 10:30; Stop 03/27/17 at 10 :45; Status DC Darbepoetin Jean (Aranesp) 60 mcg [id number] SQ Last administered on 03/27/17 22:38; Start 03/27/17 at 21:00 Info 1 each PRN DAILY PRN MC SEE COMMENTS Last administered on 03/29/17 12:27 ; Start 03/27/17 at 13:45 Sodium Chloride 90 meq/Potassium Chloride 50 meq/ Potassium Phosphate 13.6 mmol/ Magnesium Sulfate 10 meq/ Calcium Gluconate 10 meq/ Multivitamins 10 ml/Chromium / Copper/Manganese/ Seleni/Zn 1 ml/ Total Parenteral Nutrition/Amino Acids/ Dextrose/ Fat Emulsion Intravenous 1,512 ml @ 63 mls/hr TPN CONT IV Last administered on 03/27/17 22:37; Start 03/27/17 at 22:00; Stop 03/28/17 at 21 :59; Status DC Adenosine (Adenocard) 18 mg STK-MED ONCE IV ; Start 03/26/17 at 12:00; Stop at 14:50; Status DC Midazolam HCl (Versed) 5 mg STK-MED ONCE .ROUTE ; Start 03/26/17 at 12:00; Stop 03/27/17 at 14:50; Status DC Sodium Bicarbonate 150 meq STK-MED ONCE .ROUTE ; Start 03/26/17 at 12:00; Stop 03/27/17 at 14:50; Status DC Morphine Sulfate 2 mg PRN Q2HR PRN IV PAIN Last administered on 03/27/17 15: 43; Start 03/27/17 at 15:30 Midazolam HCl (Versed) 5 mg STK-MED ONCE .ROUTE ; Start 03/25/17 at 12:00; Stop 03/27/17 at 15:30; Status DC Vecuronium Hubbard (Norcuron Bolus) 10 mg STK-MED ONCE IV ; Start 03/25/17 at 12:00; Stop 03/27/17 at 15:30; Status DC Albumin Human 200 ml @ 200 mls/hr 1X PRN PRN IV Hypotension; Start 03/27/17 at 19:30; Stop 03/28/17 at 01:29; Status DC Sodium Chloride (Normal Saline Flush) 10 ml 1X PRN PRN IV AP catheter pack; Start 03/27/17 at 19:30; Stop 03/28/17 at 19:29; Status DC Sodium Chloride (Normal Saline Flush) 10 ml 1X PRN PRN IV PILATES INSTRUCTOR catheter pack; Start 03/27/17 at 19:30; Stop 03/28/17 at 19:29; Status DC Info (PHARMACY MONITORING -- do not chart) 1 each PRN DAILY PRN MC SEE COMMENTS ; Start 03/27/17 at 19:30; Status UNV Info (PHARMACY MONITORING -- do not chart) 1 each PRN DAILY PRN MC SEE COMMENTS ; Start 03/27/17 at 19:30; Status UNV Sodium Chloride 90 meq/Potassium Chloride 50 meq/ Potassium Phosphate 13.6 mmol/ Magnesium Sulfate 10 meq/ Calcium Gluconate 5 meq/ Multivitamins 10 ml/Chromium / Copper/Manganese/ Seleni/Zn 1 ml/ Total Parenteral Nutrition/Amino Acids/ Dextrose/ Fat Emulsion Intravenous 1,512 ml @ 63 mls/hr TPN CONT IV Last administered on 03/28/17t 22:10; Start 03/28/17 at 22:00; Stop 03/29/17 at 21 :59 Levetiracetam (Keppra) 250 mg BID PO ; Start 03/29/17 at 21:00; Stop 03/31/17 at 09:01 Sodium Chloride 70 meq/Potassium Chloride 50 meq/ Potassium Phosphate 13.6 mmol/ Magnesium Sulfate 10 meq/ Calcium Gluconate 5 meq/ Multivitamins 10 ml/Chromium / Copper/Manganese/ Seleni/Zn 1 ml/ Total Parenteral Nutrition/Amino Acids/ Dextrose/ Fat Emulsion Intravenous 1,512 ml @ 63 mls/hr TPN CONT IV ; Start 03/29/17 at 22:00; Stop 03/30/17 at 21:59 Sodium Chloride 1,000 ml @ 1,000 mls/hr Q1H PRN IV hypotension; Start at 14:00; Stop 03/29/17 at 19:59 Albumin Human 200 ml @ 200 mls/hr 1X PRN PRN IV Hypotension; Start 03/29/17 at 14:00; Stop 03/29/17 at 19:59 Diphenhydramine HCl (Benadryl) 25 mg 1X PRN PRN IV ITCHING; Start 03/29/17 at 14:00; Stop 03/30/17 at 13:59 Diphenhydramine HCl (Benadryl) 25 mg 1X PRN PRN IV ITCHING; Start 03/29/17 at 14:00; Stop 03/30/17 at 13:59 Sodium Chloride (Normal Saline Flush) 10 ml 1X PRN PRN IV AP catheter pack; Start 03/29/17 at 14:00; Stop 03/30/17 at 13:59 Sodium Chloride (Normal Saline Flush) 10 ml 1X PRN PRN IV PILATES INSTRUCTOR catheter pack; Start 03/29/17 at 14:00; Stop 03/30/17 at 13:59 Info (PHARMACY MONITORING -- do not chart) 1 each PRN DAILY PRN MC SEE COMMENTS ; Start 03/29/17 at 14:00 Active Scripts Active Reported Multivitamins (Multivitamin) 1 Each Tablet 1 Tab PO DAILY Omeprazole 20 Mg Capsule. 1 Cap PO DAILY Vitals/I & O Vital Sign - Last 24 Hours 03/28/17 03/28/17 03/28/17 03/28/17 16:00 19:46 19:56 23:11 Temp 98.7 98.2 98.4 98.7 98.2 98.4 Pulse 101 98 101 Resp 13 17 B/P (MAP) 124/79 (94) 121/87 (98) 123/89 (100) Pulse Ox 94 93 94 O2 Delivery Nasal Cannula Nasal Cannula Nasal Cannula Nasal Cannula O2 Flow Rate 2.0 2.0 2.0 2.0 03/29/17 03/29/17 03/29/17 03/29/17 04:03 07:00 08:05 09:43 Temp 98.6 97.5 98.6 97.5 Pulse 117 103 Resp 22 22 B/P (MAP) 132/96 (108) 129/69 (89) Pulse Ox 92 O2 Delivery NonRebreather Mask NonRebreather Mask Venturi Mask BiPAP/CPAP O2 Flow Rate 40.0 40.0 12.0 03/29/17 10:56 Temp 97.6 97.6 Pulse 119 Resp 24 B/P (MAP) 141/97 (112) Pulse Ox 92 O2 Delivery NonRebreather Mask O2 Flow Rate 40.0 DANN ROQUE MD Mar 29, 2017 14:21
[2017-03-29] MEDS ORDERED: FUROSEMIDE 40 MG/4 ML VIAL. IVP SCH (14:30)
[2017-03-29] MEDS ORDERED: DIGOXIN IV 500 MCG/2 ML AMPUL. IV ONE (14:45)
[2017-03-29] MEDS ORDERED: ALBUMIN HUMAN 5% 500 ML IV ONE (14:45)
[2017-03-29 15:21] LABS: HCO3 ABG 24 mmol/L (21-28); PCO2 ABG 41 mmHg (35-46); PH ABG 7.38 (7.35-7.45); PO2 ABG 72 mmHg (85-108); SAT O2 ABG 92 % (92-99)
[2017-03-29] MEDS: MORPHINE SULFATE 2 MG/ML DISP.SYRIN. IV PRN (15:22)
[2017-03-29 15:24] LABS: FIO2 ABG 35
[2017-03-29] MEDS: FUROSEMIDE 40 MG/4 ML VIAL. IVP SCH (15:28)
--- NOTE | 2017-03-29 17:58 | RAD ---
Exam: AP portable chest History: Shortness of air, crackles. Comparison: Earlier March 29, 2017. Findings: Cardiac silhouette appears within normal limits for size. Right internal jugular dialysis catheter is unchanged with tip projecting at the atriocaval junction. No pneumothorax or large pleural effusion is identified. There is accentuation of pulmonary vascularity, may indicate volume overload. No large consolidation is seen. Impression: 1. Accentuated pulmonary vascularity, may indicate volume overload. Electronically signed by: Lucius Tong MD (03/29/2017 5:54 PM) [facility]
[2017-03-29] MEDS ORDERED: ALBUTEROL SULFATE 2.5 MG/3 ML NEBU. NEB PRN (18:45)
[2017-03-29] MEDS: IPRATRPIUM/ALBUTEROL 0.5/2.5MG 3 ML NEBU. NEB SCH (19:44)
[2017-03-29 20:02] LABS: FIO2 ABG 35; HCO3 ABG 26 mmol/L (21-28); PCO2 ABG 36 mmHg (35-46); PH ABG 7.49 (7.35-7.45); PO2 ABG 83 mmHg (85-108); SAT O2 ABG 96 % (92-99)
[2017-03-29 20:03] LABS: ALLEN TEST POS
--- NOTE | 2017-03-29 20:15 | RAD ---
Exam: AP portable chest History: PICC line placement. Comparison: Earlier March 29, 2017. Findings: There is suboptimal inspiration. Cardiac silhouette is unchanged. Pulmonary vascularity remains accentuated. Right internal jugular central venous catheter is present. There is a right-sided PICC line, although it is difficult to assess exact location of the tip secondary to motion. PICC line at least to the right brachiocephalic vein. Impression: 1. Secondary to motion, limited of visualization of PICC line tip. A PICC line tip is at least in the brachiocephalic vein.. 2. Pulmonary vascularity appears accentuated, may indicate volume overload. Electronically signed by: Lucius Tong MD (03/29/2017 8:12 PM) [facility]
[2017-03-29] MEDS ORDERED: [UNRECOGNIZED DRUG - OTHER] IV SCH ×9 (22:00)
[2017-03-29] MEDS ORDERED: AMINO ACIDS IV SCH ×9 (22:00)
[2017-03-29] MEDS ORDERED: DEXTROSE 70% IV SCH ×9 (22:00)
[2017-03-29] MEDS ORDERED: TOTAL PARENTERAL NUTRITION IV SCH ×9 (22:00)
[2017-03-29] MEDS: levETIRAcetam 250 MG TABLET PO SCH (22:45)
--- NOTE | 2017-03-29 23:07 | RAD ---
Exam: AP portable chest History: PICC line verification. Comparison: Earlier March 29, 2017. Findings: Right-sided PICC line is again seen. Tip is thought to be at the right brachiocephalic vein. There is no interval change in appearance of the chest. Impression: 1. Right PICC line tip is thought to be projecting at the atriocaval junction. Electronically signed by: Lucius Tong MD (03/29/2017 11:04 PM) [facility]
[2017-03-30] VITALS (18 sets, daily range): BP systolic 100–136; BP diastolic 64–91
[2017-03-30] MEDS: PANTOPRAZOLE IV PUSH 40 MG VIAL. IVP SCH ×2 (00:11→12:58)
[2017-03-30] MEDS: PIPERACILLIN/TAZOBACTAM 2.25 GM in IV NORMAL SALINE 50ML 50 ML IV SCH ×3 (00:12→13:11)
[2017-03-30 05:06] LABS: BASO # 0.1 x10^3/uL (0.0-0.2); BASO % 1 % (0-3); EOS % 4 % (0-3); HEMATOCRIT 28.7 % (36.0-47.0); HEMOGLOBIN 9.8 g/dL (12.0-15.5); LYMPH # 2.2 x10^3/uL (1.0-4.8); LYMPH % 20 % (24-48); MEAN CORPUSCULAR HEMOGLOBIN 31 pg (25-35); MEAN CORPUSCULAR HGB CONC 34 g/dL (31-37); MEAN CORPUSCULAR VOLUME 90 fL (79-100); MONO % 7 % (0-9); NEUT % 67 % (31-73); PLATELET COUNT 296 x10^3/uL (140-400); WHITE BLOOD COUNT 10.8 x10^3/uL (4.0-11.0)
[2017-03-30 05:35] LABS: CALCIUM 8.6 mg/dL (8.5-10.1); CREATININE 2.6 mg/dL (0.6-1.0); GFR 21.9; MAGNESIUM 1.9 mg/dL (1.8-2.4); PHOSPHORUS 4.5 mg/dL (2.6-4.7); POTASSIUM 3.5 mmol/L (3.5-5.1)
--- NOTE | 2017-03-30 08:06 | PDOC ---
Infectious Disease Note Subjective Subjective Doing ok Less SOA. Doesn't remember the last time she ate ROS ROS GEN: Denies fevers, chills, sweats HEENT: Denies blurred vision, sore throat CV: Denies chest pain RESP: Denies shortness of air, cough GI: Denies n/v/d NEURO: Denies confusion, dizziness MSK: Denies weakness, joint pain/swelling Vital Sign Vital Signs Vital Signs Date Time Temp Pulse Resp B/P (MAP) Pulse Ox O2 Delivery O2 Flow Rate FiO2 03/30/17 06:00 100 22 130/86 (101) 98 Nasal Cannula 3.0 03/30/17 04:00 99.1 99.1 Physical Exam PHYSICAL EXAM GENERAL: NAD, Alert. 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 right HD cath Labs Lab Laboratory Tests Test 03/29/17 10:30 03/29/17 11:59 03/29/17 15:04 03/29/17 19:09 O2 Saturation 93 % (92-99) 92 % (92-99) 96 % (92-99) Arterial Blood pH 7.42 (7.35-7.45) 7.38 (7.35-7.45) 7.49 (7.35-7.45) Arterial Blood pCO2 at Patient Temp 41 mmHg (35-46) 41 mmHg (35-46) 36 mmHg (35-46) Arterial Blood pO2 at Patient Temp 71 mmHg (85-108) 72 mmHg (85-108) 83 mmHg (85-108) Arterial Blood HCO3 26 mmol/L (21-28) 24 mmol/L (21-28) 26 mmol/L (21-28) Arterial Blood Base Excess 2 mmol/L (-3-3) -1 mmol/L (-3-3) 3 mmol/L (-3-3) FiO2 35 35 35 Glucose (Fingerstick) 132 mg/dL (70-99) Test 03/30/17 04:55 White Blood Count 10.8 x10^3/uL (4.0-11.0) Red Blood Count 3.20 x10^6/uL (3.50-5.40) Hemoglobin 9.8 g/dL (12.0-15.5) Hematocrit 28.7 % (36.0-47.0) Mean Corpuscular Volume 90 fL (79-100) Mean Corpuscular Hemoglobin 31 pg (25-35) Mean Corpuscular Hemoglobin Concent 34 g/dL (31-37) Red Cell Distribution Width 16.0 % (11.5-14.5) Platelet Count 296 x10^3/uL (140-400) Neutrophils (%) (Auto) 67 % (31-73) Lymphocytes (%) (Auto) 20 % (24-48) Monocytes (%) (Auto) 7 % (0-9) Eosinophils (%) (Auto) 4 % (0-3) Basophils (%) (Auto) 1 % (0-3) Neutrophils # (Auto) 7.3 x10^3uL (1.8-7.7) Lymphocytes # (Auto) 2.2 x10^3/uL (1.0-4.8) Monocytes # (Auto) 0.8 x10^3/uL (0.0-1.1) Eosinophils # (Auto) 0.4 x10^3/uL (0.0-0.7) Basophils # (Auto) 0.1 x10^3/uL (0.0-0.2) Sodium Level 146 mmol/L (136-145) Potassium Level 3.5 mmol/L (3.5-5.1) Chloride Level 105 mmol/L (98-107) Carbon Dioxide Level 34 mmol/L (21-32) Anion Gap 7 (6-14) Blood Urea Nitrogen 20 mg/dL (7-20) Creatinine 2.6 mg/dL (0.6-1.0) Estimated GFR (Cockcroft-Gault) 21.9 Glucose Level 90 mg/dL (70-99) Calcium Level 8.6 mg/dL (8.5-10.1) Phosphorus Level 4.5 mg/dL (2.6-4.7) Magnesium Level 1.9 mg/dL (1.8-2.4) Objective Assessment Hypoxia on Heparin - ? Apnea -better s/p diurese/HD/Bipap. Now on nasal cannula Leukocytosis - better Acute encephalopathy - improved Seizure s/p vomiting 03/25. now on Keppra, CK 26, CT neg Acute respiratory failure s/p intubation, 03/25. 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 Wean soon Monitor labs/temp. Clinically looks comfortable Supportive care GENE FRAZIER MD Mar 30, 2017 08:06
[2017-03-30] MEDS ORDERED: IV NORMAL SALINE 1000ML BAG 1,000 ML IV PRN ×2 (08:10)
[2017-03-30] MEDS: NORMAL SALINE IVP SCH (08:14)
[2017-03-30] MEDS: LEVOTHYROXINE SODIUM IVP SCH (08:14)
[2017-03-30] MEDS ORDERED: diphenhydrAMINE 50 MG/ML VIAL IV PRN ×2 (08:15)
[2017-03-30] MEDS ORDERED: DIALYSIS PATIENT. MC PRN (08:15)
[2017-03-30] MEDS: IPRATRPIUM/ALBUTEROL 0.5/2.5MG 3 ML NEBU. NEB SCH ×3 (08:21→16:23)
--- NOTE | 2017-03-30 08:27 | PDOC ---
Dialysis Progress Note Dialysis Note Dialysis Note Seen on Hemodialysis, tolerating treatment Well today Vitals on Hemodialysis: 127/79 93 Afeb - now on Doubtamine General Appearance: Awake: drowsy Alert Oriented x 1-2 Neck: No JVD or JVP Chest: CTA Mathew Heart: S1 S2 Abdomen - Soft NTND Extremities - No Edema ARF/ ATN : Dialysis as below F 180 NR 3.0 Hrs 4 K 2.5 Ca 135 Na 30 HC03 Qb 350 + Qd 500+ Heparin 0 Units Uf 3-4 Kgs or to dry weight as tolerated [ ] Transfuse [ ] Units PRCBC's on HD May give 25-50 gms of 25% Albumin if needed to maintain Hemodynamic stability Treatment plan reviewed and discussed with clinical professor [ ] Vitals Vital Signs Vital Signs Date Time Temp Pulse Resp B/P (MAP) Pulse Ox O2 Delivery O2 Flow Rate FiO2 03/30/17 06:00 100 22 130/86 (101) 98 Nasal Cannula 3.0 03/30/17 04:00 99.1 99.1 Labs Last Labs Laboratory Tests Test 03/29/17 04:00 03/29/17 05:43 03/29/17 10:30 03/29/17 11:59 White Blood Count 11.4 x10^3/uL (4.0-11.0) Red Blood Count 3.27 x10^6/uL (3.50-5.40) Hemoglobin 9.7 g/dL (12.0-15.5) Hematocrit 29.3 % (36.0-47.0) Mean Corpuscular Volume 90 fL (79-100) Mean Corpuscular Hemoglobin 30 pg (25-35) Mean Corpuscular Hemoglobin Concent 33 g/dL (31-37) Red Cell Distribution Width 15.9 % (11.5-14.5) Platelet Count 335 x10^3/uL (140-400) Neutrophils (%) (Auto) 78 % (31-73) Lymphocytes (%) (Auto) 14 % (24-48) Monocytes (%) (Auto) 6 % (0-9) Eosinophils (%) (Auto) 1 % (0-3) Basophils (%) (Auto) 1 % (0-3) Neutrophils # (Auto) 8.9 x10^3uL (1.8-7.7) Lymphocytes # (Auto) 1.6 x10^3/uL (1.0-4.8) Monocytes # (Auto) 0.7 x10^3/uL (0.0-1.1) Eosinophils # (Auto) 0.2 x10^3/uL (0.0-0.7) Basophils # (Auto) 0.1 x10^3/uL (0.0-0.2) Sodium Level 150 mmol/L (136-145) Potassium Level 4.0 mmol/L (3.5-5.1) Chloride Level 110 mmol/L (98-107) Carbon Dioxide Level 31 mmol/L (21-32) Anion Gap 9 (6-14) Blood Urea Nitrogen 26 mg/dL (7-20) Creatinine 3.3 mg/dL (0.6-1.0) Estimated GFR (Cockcroft-Gault) 16.6 Glucose Level 118 mg/dL (70-99) Calcium Level 8.7 mg/dL (8.5-10.1) Phosphorus Level 4.3 mg/dL (2.6-4.7) Magnesium Level 2.1 mg/dL (1.8-2.4) Triglycerides Level 174 mg/dL (0-150) Glucose (Fingerstick) 130 mg/dL (70-99) 132 mg/dL (70-99) O2 Saturation 93 % (92-99) Arterial Blood pH 7.42 (7.35-7.45) Arterial Blood pCO2 at Patient Temp 41 mmHg (35-46) Arterial Blood pO2 at Patient Temp 71 mmHg (85-108) Arterial Blood HCO3 26 mmol/L (21-28) Arterial Blood Base Excess 2 mmol/L (-3-3) FiO2 35 Test 03/29/17 15:04 03/29/17 19:09 03/30/17 04:55 O2 Saturation 92 % (92-99) 96 % (92-99) Arterial Blood pH 7.38 (7.35-7.45) 7.49 (7.35-7.45) Arterial Blood pCO2 at Patient Temp 41 mmHg (35-46) 36 mmHg (35-46) Arterial Blood pO2 at Patient Temp 72 mmHg (85-108) 83 mmHg (85-108) Arterial Blood HCO3 24 mmol/L (21-28) 26 mmol/L (21-28) Arterial Blood Base Excess -1 mmol/L (-3-3) 3 mmol/L (-3-3) FiO2 35 35 White Blood Count 10.8 x10^3/uL (4.0-11.0) Red Blood Count 3.20 x10^6/uL (3.50-5.40) Hemoglobin 9.8 g/dL (12.0-15.5) Hematocrit 28.7 % (36.0-47.0) Mean Corpuscular Volume 90 fL (79-100) Mean Corpuscular Hemoglobin 31 pg (25-35) Mean Corpuscular Hemoglobin Concent 34 g/dL (31-37) Red Cell Distribution Width 16.0 % (11.5-14.5) Platelet Count 296 x10^3/uL (140-400) Neutrophils (%) (Auto) 67 % (31-73) Lymphocytes (%) (Auto) 20 % (24-48) Monocytes (%) (Auto) 7 % (0-9) Eosinophils (%) (Auto) 4 % (0-3) Basophils (%) (Auto) 1 % (0-3) Neutrophils # (Auto) 7.3 x10^3uL (1.8-7.7) Lymphocytes # (Auto) 2.2 x10^3/uL (1.0-4.8) Monocytes # (Auto) 0.8 x10^3/uL (0.0-1.1) Eosinophils # (Auto) 0.4 x10^3/uL (0.0-0.7) Basophils # (Auto) 0.1 x10^3/uL (0.0-0.2) Sodium Level 146 mmol/L (136-145) Potassium Level 3.5 mmol/L (3.5-5.1) Chloride Level 105 mmol/L (98-107) Carbon Dioxide Level 34 mmol/L (21-32) Anion Gap 7 (6-14) Blood Urea Nitrogen 20 mg/dL (7-20) Creatinine 2.6 mg/dL (0.6-1.0) Estimated GFR (Cockcroft-Gault) 21.9 Glucose Level 90 mg/dL (70-99) Calcium Level 8.6 mg/dL (8.5-10.1) Phosphorus Level 4.5 mg/dL (2.6-4.7) Magnesium Level 1.9 mg/dL (1.8-2.4) Laboratory Tests Test 03/29/17 10:30 03/29/17 11:59 03/29/17 15:04 03/29/17 19:09 O2 Saturation 93 % (92-99) 92 % (92-99) 96 % (92-99) Arterial Blood pH 7.42 (7.35-7.45) 7.38 (7.35-7.45) 7.49 (7.35-7.45) Arterial Blood pCO2 at Patient Temp 41 mmHg (35-46) 41 mmHg (35-46) 36 mmHg (35-46) Arterial Blood pO2 at Patient Temp 71 mmHg (85-108) 72 mmHg (85-108) 83 mmHg (85-108) Arterial Blood HCO3 26 mmol/L (21-28) 24 mmol/L (21-28) 26 mmol/L (21-28) Arterial Blood Base Excess 2 mmol/L (-3-3) -1 mmol/L (-3-3) 3 mmol/L (-3-3) FiO2 35 35 35 Glucose (Fingerstick) 132 mg/dL (70-99) Test 03/30/17 04:55 White Blood Count 10.8 x10^3/uL (4.0-11.0) Red Blood Count 3.20 x10^6/uL (3.50-5.40) Hemoglobin 9.8 g/dL (12.0-15.5) Hematocrit 28.7 % (36.0-47.0) Mean Corpuscular Volume 90 fL (79-100) Mean Corpuscular Hemoglobin 31 pg (25-35) Mean Corpuscular Hemoglobin Concent 34 g/dL (31-37) Red Cell Distribution Width 16.0 % (11.5-14.5) Platelet Count 296 x10^3/uL (140-400) Neutrophils (%) (Auto) 67 % (31-73) Lymphocytes (%) (Auto) 20 % (24-48) Monocytes (%) (Auto) 7 % (0-9) Eosinophils (%) (Auto) 4 % (0-3) Basophils (%) (Auto) 1 % (0-3) Neutrophils # (Auto) 7.3 x10^3uL (1.8-7.7) Lymphocytes # (Auto) 2.2 x10^3/uL (1.0-4.8) Monocytes # (Auto) 0.8 x10^3/uL (0.0-1.1) Eosinophils # (Auto) 0.4 x10^3/uL (0.0-0.7) Basophils # (Auto) 0.1 x10^3/uL (0.0-0.2) Sodium Level 146 mmol/L (136-145) Potassium Level 3.5 mmol/L (3.5-5.1) Chloride Level 105 mmol/L (98-107) Carbon Dioxide Level 34 mmol/L (21-32) Anion Gap 7 (6-14) Blood Urea Nitrogen 20 mg/dL (7-20) Creatinine 2.6 mg/dL (0.6-1.0) Estimated GFR (Cockcroft-Gault) 21.9 Glucose Level 90 mg/dL (70-99) Calcium Level 8.6 mg/dL (8.5-10.1) Phosphorus Level 4.5 mg/dL (2.6-4.7) Magnesium Level 1.9 mg/dL (1.8-2.4) VETO VILLANUEVA MD Mar 30, 2017 08:27
[2017-03-30 08:35] LABS: HCO3 ABG 30 mmol/L (21-28); PCO2 ABG 41 mmHg (35-46); PH ABG 7.49 (7.35-7.45); PO2 ABG 83 mmHg (85-108); SAT O2 ABG 96 % (92-99)
--- NOTE | 2017-03-30 08:40 | PDOC ---
PROGRESS NOTES Assessment Events noted, back in ICU due to dyspnea Seizures, new onset, provoked. Metabolic encephalopathy. Acute respiratory failure. Acute renal failure. Leukocytosis. Acute appendicitis s/p appendectomy. Hypoalbuminemia. DM. Obesity. Plan Tapering off levetiracetam No driving for 6 months without a seizure Follow-up with neurology as needed. Subjective feels better this morning Objective Vital Signs Date Time Temp Pulse Resp B/P (MAP) Pulse Ox O2 Delivery O2 Flow Rate FiO2 03/30/17 06:00 100 22 130/86 (101) 98 Nasal Cannula 3.0 03/30/17 04:00 99.1 99.1 PHYSICAL EXAM Alert, Oriented to person, place, time PERRL. EOMI. CN: no focal findings. Muscle tone: normal. Muscle strength: 4/5 strength DTR: 0-1+ Plantar reflex: flexor Gait: not examined in bed. Sensory exam: no abnormal findings Cerebellar: no findings out of proportion to weakness Review of Relevant I have reviewed the following items na (where applicable) has been applied. Labs Laboratory Tests Test 03/29/17 04:00 03/29/17 05:43 03/29/17 10:30 03/29/17 11:59 White Blood Count 11.4 x10^3/uL (4.0-11.0) Red Blood Count 3.27 x10^6/uL (3.50-5.40) Hemoglobin 9.7 g/dL (12.0-15.5) Hematocrit 29.3 % (36.0-47.0) Mean Corpuscular Volume 90 fL (79-100) Mean Corpuscular Hemoglobin 30 pg (25-35) Mean Corpuscular Hemoglobin Concent 33 g/dL (31-37) Red Cell Distribution Width 15.9 % (11.5-14.5) Platelet Count 335 x10^3/uL (140-400) Neutrophils (%) (Auto) 78 % (31-73) Lymphocytes (%) (Auto) 14 % (24-48) Monocytes (%) (Auto) 6 % (0-9) Eosinophils (%) (Auto) 1 % (0-3) Basophils (%) (Auto) 1 % (0-3) Neutrophils # (Auto) 8.9 x10^3uL (1.8-7.7) Lymphocytes # (Auto) 1.6 x10^3/uL (1.0-4.8) Monocytes # (Auto) 0.7 x10^3/uL (0.0-1.1) Eosinophils # (Auto) 0.2 x10^3/uL (0.0-0.7) Basophils # (Auto) 0.1 x10^3/uL (0.0-0.2) Sodium Level 150 mmol/L (136-145) Potassium Level 4.0 mmol/L (3.5-5.1) Chloride Level 110 mmol/L (98-107) Carbon Dioxide Level 31 mmol/L (21-32) Anion Gap 9 (6-14) Blood Urea Nitrogen 26 mg/dL (7-20) Creatinine 3.3 mg/dL (0.6-1.0) Estimated GFR (Cockcroft-Gault) 16.6 Glucose Level 118 mg/dL (70-99) Calcium Level 8.7 mg/dL (8.5-10.1) Phosphorus Level 4.3 mg/dL (2.6-4.7) Magnesium Level 2.1 mg/dL (1.8-2.4) Triglycerides Level 174 mg/dL (0-150) Glucose (Fingerstick) 130 mg/dL (70-99) 132 mg/dL (70-99) O2 Saturation 93 % (92-99) Arterial Blood pH 7.42 (7.35-7.45) Arterial Blood pCO2 at Patient Temp 41 mmHg (35-46) Arterial Blood pO2 at Patient Temp 71 mmHg (85-108) Arterial Blood HCO3 26 mmol/L (21-28) Arterial Blood Base Excess 2 mmol/L (-3-3) FiO2 35 Test 03/29/17 15:04 03/29/17 19:09 03/30/17 04:55 O2 Saturation 92 % (92-99) 96 % (92-99) Arterial Blood pH 7.38 (7.35-7.45) 7.49 (7.35-7.45) Arterial Blood pCO2 at Patient Temp 41 mmHg (35-46) 36 mmHg (35-46) Arterial Blood pO2 at Patient Temp 72 mmHg (85-108) 83 mmHg (85-108) Arterial Blood HCO3 24 mmol/L (21-28) 26 mmol/L (21-28) Arterial Blood Base Excess -1 mmol/L (-3-3) 3 mmol/L (-3-3) FiO2 35 35 White Blood Count 10.8 x10^3/uL (4.0-11.0) Red Blood Count 3.20 x10^6/uL (3.50-5.40) Hemoglobin 9.8 g/dL (12.0-15.5) Hematocrit 28.7 % (36.0-47.0) Mean Corpuscular Volume 90 fL (79-100) Mean Corpuscular Hemoglobin 31 pg (25-35) Mean Corpuscular Hemoglobin Concent 34 g/dL (31-37) Red Cell Distribution Width 16.0 % (11.5-14.5) Platelet Count 296 x10^3/uL (140-400) Neutrophils (%) (Auto) 67 % (31-73) Lymphocytes (%) (Auto) 20 % (24-48) Monocytes (%) (Auto) 7 % (0-9) Eosinophils (%) (Auto) 4 % (0-3) Basophils (%) (Auto) 1 % (0-3) Neutrophils # (Auto) 7.3 x10^3uL (1.8-7.7) Lymphocytes # (Auto) 2.2 x10^3/uL (1.0-4.8) Monocytes # (Auto) 0.8 x10^3/uL (0.0-1.1) Eosinophils # (Auto) 0.4 x10^3/uL (0.0-0.7) Basophils # (Auto) 0.1 x10^3/uL (0.0-0.2) Sodium Level 146 mmol/L (136-145) Potassium Level 3.5 mmol/L (3.5-5.1) Chloride Level 105 mmol/L (98-107) Carbon Dioxide Level 34 mmol/L (21-32) Anion Gap 7 (6-14) Blood Urea Nitrogen 20 mg/dL (7-20) Creatinine 2.6 mg/dL (0.6-1.0) Estimated GFR (Cockcroft-Gault) 21.9 Glucose Level 90 mg/dL (70-99) Calcium Level 8.6 mg/dL (8.5-10.1) Phosphorus Level 4.5 mg/dL (2.6-4.7) Magnesium Level 1.9 mg/dL (1.8-2.4) Laboratory Tests Test 03/29/17 10:30 03/29/17 11:59 03/29/17 15:04 03/29/17 19:09 O2 Saturation 93 % (92-99) 92 % (92-99) 96 % (92-99) Arterial Blood pH 7.42 (7.35-7.45) 7.38 (7.35-7.45) 7.49 (7.35-7.45) Arterial Blood pCO2 at Patient Temp 41 mmHg (35-46) 41 mmHg (35-46) 36 mmHg (35-46) Arterial Blood pO2 at Patient Temp 71 mmHg (85-108) 72 mmHg (85-108) 83 mmHg (85-108) Arterial Blood HCO3 26 mmol/L (21-28) 24 mmol/L (21-28) 26 mmol/L (21-28) Arterial Blood Base Excess 2 mmol/L (-3-3) -1 mmol/L (-3-3) 3 mmol/L (-3-3) FiO2 35 35 35 Glucose (Fingerstick) 132 mg/dL (70-99) Test 03/30/17 04:55 White Blood Count 10.8 x10^3/uL (4.0-11.0) Red Blood Count 3.20 x10^6/uL (3.50-5.40) Hemoglobin 9.8 g/dL (12.0-15.5) Hematocrit 28.7 % (36.0-47.0) Mean Corpuscular Volume 90 fL (79-100) Mean Corpuscular Hemoglobin 31 pg (25-35) Mean Corpuscular Hemoglobin Concent 34 g/dL (31-37) Red Cell Distribution Width 16.0 % (11.5-14.5) Platelet Count 296 x10^3/uL (140-400) Neutrophils (%) (Auto) 67 % (31-73) Lymphocytes (%) (Auto) 20 % (24-48) Monocytes (%) (Auto) 7 % (0-9) Eosinophils (%) (Auto) 4 % (0-3) Basophils (%) (Auto) 1 % (0-3) Neutrophils # (Auto) 7.3 x10^3uL (1.8-7.7) Lymphocytes # (Auto) 2.2 x10^3/uL (1.0-4.8) Monocytes # (Auto) 0.8 x10^3/uL (0.0-1.1) Eosinophils # (Auto) 0.4 x10^3/uL (0.0-0.7) Basophils # (Auto) 0.1 x10^3/uL (0.0-0.2) Sodium Level 146 mmol/L (136-145) Potassium Level 3.5 mmol/L (3.5-5.1) Chloride Level 105 mmol/L (98-107) Carbon Dioxide Level 34 mmol/L (21-32) Anion Gap 7 (6-14) Blood Urea Nitrogen 20 mg/dL (7-20) Creatinine 2.6 mg/dL (0.6-1.0) Estimated GFR (Cockcroft-Gault) 21.9 Glucose Level 90 mg/dL (70-99) Calcium Level 8.6 mg/dL (8.5-10.1) Phosphorus Level 4.5 mg/dL (2.6-4.7) Magnesium Level 1.9 mg/dL (1.8-2.4) Microbiology 03/25/17 Blood Culture - Preliminary, Resulted NO GROWTH AFTER 4 DAYS Medications Current Medications Dexamethasone Sodium Phosphate (Decadron) 20 mg STK-MED ONCE .ROUTE ; Start 03/15/17 at 14:06; Stop 03/15/17 at 14:07; Status DC Ondansetron HCl (Zofran) 4 mg STK-MED ONCE .ROUTE ; Start 03/15/17 at 14:06; Stop 03/15/17 at 14:07; Status DC Propofol 20 ml @ As Directed STK-MED ONCE IV ; Start 03/15/17 at 14:06; Stop at 14:07; Status DC Lidocaine HCl (Lidocaine Pf 2% Vial) 5 ml STK-MED ONCE .ROUTE ; Start 03/15/17 at 14:06; Stop 03/15/17 at 14:07; Status DC Midazolam HCl (Versed) 2 mg STK-MED ONCE .ROUTE ; Start 03/15/17 at 14:06; Stop 03/15/17 at 14:07; Status DC Fentanyl Citrate (Fentanyl 2ml Vial) 100 mcg STK-MED ONCE .ROUTE ; Start at 14:06; Stop 03/15/17 at 14:07; Status DC Rocuronium Chloride (Zemuron) 100 mg STK-MED ONCE .ROUTE ; Start 03/15/17 at 14: 07; Stop 03/15/17 at 14:08; Status DC Succinylcholine Chloride (Anectine) 200 mg STK-MED ONCE .ROUTE ; Start 03/15/17 at 14:07; Stop 03/15/17 at 14:08; Status DC Bupivacaine HCl/ Epinephrine Bitart (Marcaine-Epi 0.5%-[id number]) 50 ml STK-MED ONCE .ROUTE Last administered on 03/15/17 14:54; Start 03/15/17 at 13:07; Stop 03/15/17 at 14:08; Status DC Cefoxitin Sodium 2 gm/Sodium Chloride 100 ml @ 200 mls/hr 1X PREOP IV Last administered on 03/15/17 14:55; Start 03/15/17 at 16:00; Stop 03/16/17 at 14:41 ; Status DC Sodium Chloride 1,000 ml @ 125 mls/hr 1X ONCE IV Last administered on 14:15; Start 03/15/17 at 14:15; Stop 03/15/17 at 22:14; Status DC Cefoxitin Sodium 100 ml @ As Directed STK-MED ONCE IV ; Start 03/15/17 at 14:53 ; Stop 03/15/17 at 14:54; Status DC Enoxaparin Sodium (Lovenox 40mg Syringe) 40 mg Q24H SQ ; Start 03/15/17 at 15:30 ; Stop 03/16/17 at 14:38; Status DC Sodium Chloride (Normal Saline Flush) 3 ml QSHIFT PRN IV AFTER MEDS AND BLOOD DRAWS; Start 03/15/17 at 15:30 Ringer's Solution 1,000 ml @ 75 mls/hr [id number] IV Last administered on 21:12; Start 03/15/17 at 15:19; Stop 03/27/17 at 12:51; Status DC Acetaminophen/ Hydrocodone Bitart (Lortab 5/325) 1 tab PRN Q4HRS PRN PO MILD PAIN Last administered on 03/16/17 02:56; Start 03/15/17 at 15:30; Stop at 13:05; Status DC Ketorolac Tromethamine (Toradol) 15 mg PRN Q6HRS PRN IV PAIN; Start 03/15/17 at 15:30; Stop 03/16/17 at 09:05; Status DC Morphine Sulfate 2 mg PRN Q1HR PRN IV PAIN Last administered on 03/22/17 09: 36; Start 03/15/17 at 15:30; Stop 03/27/17 at 12:51; Status DC Docusate Sodium (Colace) 100 mg BID PO Last administered on 03/17/17 13:04; Start 03/15/17 at 21:00 Ondansetron HCl (Zofran) 4 mg PRN Q6HRS PRN IV NAUESA, 1ST CHOICE Last administered on 03/22/17 06:34; Start 03/15/17 at 15:30; Stop 03/22/17 at 09: 09; Status DC Piperacillin Sod/ Tazobactam Sod 3.375 gm/Sodium Chloride 50 ml @ 100 mls/hr Q6HRS IV Last administered on 03/21/17 06:20; Start 03/15/17 at 18:00; Stop 03/21/17 at 09:24; Status DC Morphine Sulfate 10 mg STK-MED ONCE .ROUTE ; Start 03/15/17 at 15:32; Stop 03/15 at 15:33; Status DC Ringer's Solution 1,000 ml @ 125 mls/hr Q8H IV Last administered on 03/16/17 00:51; Start 03/15/17 at 15:42; Stop 03/16/17 at 03:41; Status DC Lidocaine HCl (Xylocaine-Mpf 1% Vial) 0.5 ml 1X PRN PRN INJ IV START; Start at 15:45; Stop 03/16/17 at 15:44; Status DC Ringer's Solution 1,000 ml @ 125 mls/hr Q8H IV ; Start 03/15/17 at 15:42; Stop 03/15/17 at 21:41; Status DC Fentanyl Citrate (Fentanyl 2ml Vial) 25 mcg PRN Q5MIN PRN IV Acute Pain; Start 03/15/17 at 15:45; Stop 03/16/17 at 09:05; Status DC Fentanyl Citrate (Fentanyl 2ml Vial) 50 mcg PRN Q5MIN PRN IV Acute Pain Last administered on 03/15/17 15:58; Start 03/15/17 at 15:45; Stop 03/16/17 at 09:05 ; Status DC Morphine Sulfate 2 mg PRN Q10MIN PRN IV Mild Pain; Start 03/15/17 at 15:45; Stop 03/16/17 at 09:05; Status DC Morphine Sulfate 4 mg PRN Q10MIN PRN IV Moderate Pain; Start 03/15/17 at 15:45 ; Stop 03/16/17 at 09:05; Status DC Ondansetron HCl (Zofran) 4 mg PRN Q6HRS PRN IV Nausea, 1st Choice; Start at 15:45; Stop 03/16/17 at 09:05; Status DC Metoclopramide HCl (Reglan) 10 mg PRN Q6HRS PRN IV Nausea/Vomiting, 2nd Choice Last administered on 03/15/17 18:49; Start 03/15/17 at 15:45; Stop 03/16/17 at 15:44; Status DC Diphenhydramine HCl (Benadryl) 12.5 mg PRN Q2HR PRN IV ITCHING; Start 03/15/17 at 15:45; Stop 03/16/17 at 15:44; Status DC Albuterol Sulfate (Ventolin Neb Soln) 2.5 mg PRN 1X PRN NEB Shortness of Breath , Wheezing; Start 03/15/17 at 15:45; Stop 03/16/17 at 15:44; Status DC Dexamethasone Sodium Phosphate (Decadron) 8 mg 1X PRN PRN IV 3RD CHOICE FOR NAUSEA; Start 03/15/17 at 15:45; Stop 03/16/17 at 15:44; Status DC Meperidine HCl (Demerol) 10 mg 1X PERIOP PRN IV SHIVERING; Start 03/15/17 at 15 :45; Stop 03/16/17 at 15:44; Status DC Meperidine HCl (Demerol) 15 mg 1X PERIOP PRN IV SHIVERING; Start 03/15/17 at 15 :45; Stop 03/16/17 at 15:44; Status DC Prochlorperazine Edisylate (Compazine) 10 mg STK-MED ONCE .ROUTE ; Start at 15:48; Stop 03/15/17 at 15:49; Status DC Prochlorperazine Maleate (Compazine) 5 mg 1X PACU PRN PO NAUSEA/VOMITING; Start 03/15/17 at 16:00; Stop 03/19/17 at 19:03; Status DC Hydromorphone HCl (Dilaudid) 0.5 mg PRN Q10MIN PRN IV PAIN Last administered on 03/15/17 16:52; Start 03/15/17 at 16:15; Stop 03/16/17 at 09:05; Status DC Acetaminophen/ Hydrocodone Bitart (Lortab 5/325) 2 tab PRN Q4HRS PRN PO PAIN Last administered on 03/16/17 10:16; Start 03/16/17 at 09:15; Stop 03/16/17 at 13:05; Status DC Multivitamins (Thera M Plus) 1 tab DAILY PO Last administered on 03/27/17 11: 29; Start 03/16/17 at 13:00 Pantoprazole Sodium (Protonix) 40 mg DAILYAC PO Last administered on 03/20/17 08:48; Start 03/16/17 at 13:00; Stop 03/20/17 at 11:14; Status DC Oxycodone/ Acetaminophen (Percocet 7.5/ 325) 1 tab PRN Q4HRS PRN PO PAIN Last administered on 03/23/17 14:59; Start 03/16/17 at 13:15 Morphine Sulfate 4 mg PRN Q2HR PRN IV PAIN Last administered on 03/18/17 14:11 ; Start 03/16/17 at 13:15; Stop 03/27/17 at 12:51; Status DC Enoxaparin Sodium (Lovenox 40mg Syringe) 40 mg Q12HR SQ Last administered on 08:47; Start 03/16/17 at 21:00; Stop 03/20/17 at 16:57; Status DC Iohexol (Omnipaque 300 Mg/ml) 75 ml 1X ONCE IV Last administered on 03/17/17 08:00; Start 03/17/17 at 08:00; Stop 03/17/17 at 08:01; Status DC Iohexol (Omnipaque 240 Mg/ml) 50 ml 1X ONCE PO Last administered on 03/17/17 08:00; Start 03/17/17 at 08:00; Stop 03/17/17 at 08:01; Status DC Info (Do NOT chart on this entry -- for MONITORING) 1 each PRN DAILY PRN MC SEE COMMENTS; Start 03/17/17 at 07:45; Stop 03/19/17 at 07:44; Status DC Sodium Chloride 1,000 ml @ 1,000 mls/hr 1X ONCE IV Last administered on 08:00; Start 03/17/17 at 08:00; Stop 03/17/17 at 08:59; Status DC Vancomycin HCl (Vanco Per Pharmacy) 1 each PRN DAILY PRN MC SEE COMMENTS Last administered on 03/18/17 14:24; Start 03/17/17 at 08:00; Stop 03/19/17 at 11:10 ; Status DC Fluconazole/ Sodium Chloride 200 ml @ 100 mls/hr Q24H IV Last administered on 03/21/17 08:07; Start 03/17/17 at 09:00; Stop 03/21/17 at 09:24; Status DC Vancomycin HCl 2 gm/Sodium Chloride 500 ml @ 250 mls/hr 1X ONCE IV Last administered on 03/17/17 13:08; Start 03/17/17 at 09:00; Stop 03/17/17 at 10:59 ; Status DC Acetaminophen (Tylenol) 650 mg PRN Q6HRS PRN PO FEVER Last administered on 16:34; Start 03/17/17 at 08:15 Vancomycin HCl 2 gm/Sodium Chloride 500 ml @ 250 mls/hr Q8H IV Last administered on 03/19/17 05:41; Start 03/17/17 at 22:00; Stop 03/19/17 at 11:10 ; Status DC Vancomycin HCl 1 each 1X ONCE MC ; Start 03/18/17 at 13:30; Stop 03/18/17 at 13 :31; Status DC Calcium Carbonate/ Glycine (Tums) 1,000 mg PRN Q4HRS PRN PO INDIGESTION Last administered on 10/6/17at 23:57; Start 03/17/17 at 23:45 Potassium Chloride (Klor-Con) 40 meq 1X ONCE PO Last administered on 14:14; Start 03/18/17 at 12:45; Stop 03/18/17 at 12:46; Status DC Vancomycin HCl 1 each 1X ONCE MC ; Start 03/19/17 at 13:30; Stop 03/19/17 at 13 :30; Status DC Sodium Chloride 1,000 ml @ 1,000 mls/hr 1X ONCE IV Last administered on 14:28; Start 03/19/17 at 12:15; Stop 03/19/17 at 13:14; Status DC Pantoprazole Sodium (Protonix) 40 mg BIDAC PO Last administered on 03/25/17 08:31; Start 03/20/17 at 16:30; Stop 03/25/17 at 16:05; Status DC Simethicone (Gas-X) 80 mg PRN AFTMEALHC PRN PO GAS / BLOATING Last administered on 03/22/17 08:55; Start 03/20/17 at 11:15 Al Hydroxide/Mg Hydroxide (Mylanta Plus Xs) 30 ml PRN Q2HR PRN PO HEARTBURN / GAS; Start 03/20/17 at 11:15 Enoxaparin Sodium (Lovenox 40mg Syringe) 40 mg DAILY SQ Last administered on 08:09; Start 03/21/17 at 09:00; Stop 03/22/17 at 12:42; Status DC Fluconazole/ Sodium Chloride 100 ml @ 100 mls/hr Q24H IV ; Start 03/22/17 at 09:00; Stop 03/22/17 at 09:00; Status DC Piperacillin Sod/ Tazobactam Sod 3.375 gm/Sodium Chloride 50 ml @ 100 mls/hr Q12HR IV ; Start 03/21/17 at 21:00; Stop 03/21/17 at 21:00; Status DC Fluconazole/ Sodium Chloride 100 ml @ 100 mls/hr Q24H IV Last administered on 03/22/17 09:30; Start 03/22/17 at 09:00; Stop 03/23/17 at 10:05; Status DC Piperacillin Sod/ Tazobactam Sod 2.25 gm/Sodium Chloride 50 ml @ 100 mls/hr Q6HRS IV Last administered on 03/23/17 05:58; Start 03/21/17 at 12:00; Stop 03/23/17 at 10:05; Status DC Ondansetron HCl (Zofran) 8 mg PRN Q8HRS PRN IV NAUESA, 1ST CHOICE Last administered on 03/29/17 13:45; Start 03/22/17 at 09:15 Prochlorperazine Edisylate (Compazine) 10 mg PRN Q8HRS PRN IV NAUSEA/VOMITING - 2nd choice Last administered on 03/25/17 10:23; Start 03/22/17 at 09:15 Amino Acids/ Glycerin/ Electrolytes 1,000 ml @ 80 mls/hr [id number] IV Last administered on 03/27/17 06:09; Start 03/22/17 at 11:45; Stop 03/27/17 at 21 :59; Status DC Heparin Sodium (Porcine) (Heparin Sq) 5,000 unit Q8HRS SQ Last administered on 03/25/17 06:07; Start 03/22/17 at 14:00; Stop 03/25/17 at 08:45; Status DC Loperamide HCl (Imodium) 2 mg PRN Q15MIN PRN PO DIARRHEA; Start 03/23/17 at 08 :00 Amoxicillin/ Clavulanate Potassium (Augmentin 500/ 125mg) 1 tab BID PO Last administered on 03/25/17 08:31; Start 03/23/17 at 10:30; Stop 03/25/17 at 14 :03; Status DC Promethazine HCl (Phenergan) 25 mg PRN Q6HRS PRN [place] NAUSEA/VOMITING; Start 05/28 at 15:15 Furosemide (Lasix) 80 mg 1X ONCE IVP Last administered on 03/24/17 12:13; Start 03/24/17 at 11:30; Stop 03/24/17 at 11:31; Status DC Iohexol (Omnipaque 240 Mg/ml) 50 ml 1X ONCE PO Last administered on 09:30; Start 03/25/17 at 09:30; Stop 03/25/17 at 09:31; Status DC Iohexol (Omnipaque 240 Mg/ml) 50 ml 1X ONCE PO Last administered on 12:32; Start 03/25/17 at 12:30; Stop 03/25/17 at 12:31; Status DC Lorazepam (Ativan) 1 mg 1X ONCE IV Last administered on 03/25/17 13:40; Start 03/25/17 at 14:00; Stop 03/25/17 at 14:01; Status DC Piperacillin Sod/ Tazobactam Sod 2.25 gm/Sodium Chloride 50 ml @ 100 mls/hr Q8HRS IV Last administered on 03/30/17 06:12; Start 03/25/17 at 15:00 Levetiracetam 500 mg/Sodium Chloride 100 ml @ 400 mls/hr Q12HR IV ; Start at 15:00; Stop 03/25/17 at 15:00; Status DC Lorazepam (Ativan) 2 mg PRN Q1HR PRN IV SEIZURE Last administered on 14:30; Start 03/25/17 at 14:15; Stop 03/25/17 at 15:27; Status DC Levetiracetam 750 mg/Sodium Chloride 107.5 ml @ 400 mls/hr Q12HR IV Last administered on 03/28/17 21:02; Start 03/25/17 at 15:00; Stop 03/29/17 at 09 :12; Status DC Digoxin (Lanoxin) 500 mcg 1X ONCE IV Last administered on 03/25/17 14:34; Start 03/25/17 at 14:30; Stop 03/25/17 at 14:31; Status DC Norepinephrine Bitartrate 250 ml @ 0 mls/hr CONT PRN IV SEE I/O RECORD Last administered on 03/25/17 21:53; Start 03/25/17 at 14:30 Sodium Chloride 1,000 ml @ 1,000 mls/hr 1X ONCE IV Last administered on 03/25 15:38; Start 03/25/17 at 15:00; Stop 03/25/17 at 15:59; Status DC Lorazepam (Ativan) 2 mg PRN Q4HRS PRN IV ANXIETY / AGITATION Last administered on 03/25/17 15:55; Start 03/25/17 at 15:30 Propofol 100 ml @ As Directed STK-MED ONCE IV ; Start 03/25/17 at 15:28; Stop 03/25/17 at 15:29; Status DC Propofol 100 ml @ 0 mls/hr CONT PRN IV SEE I/O RECORD Last administered on 11:00; Start 03/25/17 at 15:45 Sodium Bicarbonate 150 meq 1X ONCE IV Last administered on 03/25/17 15:43; Start 03/25/17 at 16:00; Stop 03/25/17 at 16:01; Status DC Adenosine (Adenocard) 6 mg 1X ONCE IV Last administered on 03/25/17 15:42; Start 03/25/17 at 16:15; Stop 03/25/17 at 16:16; Status DC Adenosine (Adenocard) 12 mg 1X ONCE IV Last administered on 03/25/17 15:48; Start 03/25/17 at 16:00; Stop 03/25/17 at 16:01; Status DC Midazolam HCl (Versed) 5 mg 1X ONCE IV Last administered on 03/25/17 15:48; Start 03/25/17 at 16:00; Stop 03/25/17 at 16:01; Status DC Pantoprazole Sodium (Protonix Vial) 40 mg BID IVP Last administered on 00:11; Start 03/25/17 at 21:00 Sodium Chloride 1,000 ml @ 1,000 mls/hr Q1H PRN IV hypotension; Start at 16:30; Stop 03/25/17 at 22:29; Status DC Sodium Chloride (Normal Saline Flush) 10 ml 1X PRN PRN IV AP catheter pack; Start 03/25/17 at 16:30; Stop 03/26/17 at 08:54; Status DC Sodium Chloride (Normal Saline Flush) 10 ml 1X PRN PRN IV AIR TWISTER WINDER catheter pack; Start 03/25/17 at 16:30; Stop 03/26/17 at 08:54; Status DC Sodium Chloride 1,000 ml @ 400 mls/hr Q2H30M PRN IV PATENCY; Start 03/25/17 at 16:30; Stop 03/26/17 at 04:29; Status DC Info (PHARMACY MONITORING -- do not chart) 1 each PRN DAILY PRN MC SEE COMMENTS ; Start 03/25/17 at 16:30; Status Cancel Info (PHARMACY MONITORING -- do not chart) 1 each PRN DAILY PRN MC SEE COMMENTS ; Start 03/25/17 at 16:30; Status UNV Acetaminophen (Tylenol) 650 mg PRN Q6HRS PRN PEG MILD PAIN / TEMP Last administered on 03/25/17 18:44; Start 03/25/17 at 18:30 Fentanyl Citrate 30 ml @ 0 mls/hr CONT PRN PRN IV PROTOCOL; Start 03/25/17 at 19:15 Sodium Chloride 1,000 ml @ 1,000 mls/hr Q1H PRN IV hypotension; Start at 08:46; Stop 03/26/17 at 14:45; Status DC Sodium Chloride (Normal Saline Flush) 10 ml 1X PRN PRN IV AP catheter pack; Start 03/26/17 at 09:00; Stop 03/27/17 at 08:59; Status DC Sodium Chloride (Normal Saline Flush) 10 ml 1X PRN PRN IV AIR TWISTER WINDER catheter pack; Start 03/26/17 at 09:00; Stop 03/27/17 at 08:59; Status DC Sodium Chloride 1,000 ml @ 400 mls/hr Q2H30M PRN IV PATENCY; Start 03/26/17 at 08:46; Stop 03/26/17 at 20:45; Status DC Info (PHARMACY MONITORING -- do not chart) 1 each PRN DAILY PRN MC SEE COMMENTS ; Start 03/26/17 at 09:00; Status UNV Info (PHARMACY MONITORING -- do not chart) 1 each PRN DAILY PRN MC SEE COMMENTS ; Start 03/26/17 at 09:00; Status UNV Levothyroxine Sodium 15 mcg/ Sodium Chloride 5 ml @ 100 mls/hr DAILY IVP Last administered on 03/30/17 08:14; Start 03/26/17 at 14:00 Chlorhexidine Gluconate (Peridex) 15 ml BID MM Last administered on 03/27/17 07:45; Start 03/26/17 at 21:00; Stop 03/27/17 at 20:57; Status DC Heparin Sodium (Porcine) (Heparin Sq) 5,000 unit BID SQ Last administered on 22:46; Start 03/26/17 at 21:00 Heparin Sodium (Porcine) (Heparin Sodium) 10,000 unit STK-MED ONCE .ROUTE ; Start 03/27/17 at 08:15; Stop 03/27/17 at 08:16; Status DC Lidocaine/ Epinephrine (Xylocaine 1%-Epi 1:100,000) 20 ml STK-MED ONCE .ROUTE ; Start 03/27/17 at 08:15; Stop 03/27/17 at 08:16; Status DC Heparin Sodium/ Sodium Chloride 500 ml @ As Directed STK-MED ONCE .ROUTE ; Start 03/27/17 at 08:15; Stop 03/27/17 at 08:16; Status DC Heparin Sodium/ Sodium Chloride 1,000 unit 1X ONCE IART Last administered on 03/27/17 10:53; Start 03/27/17 at 10:30; Stop 03/27/17 at 10:45; Status DC Lidocaine/ Epinephrine (Xylocaine 1%-Epi 1:100,000) 20 ml 1X ONCE INJ Last administered on 03/27/17 10:53; Start 03/27/17 at 10:30; Stop 03/27/17 at 10 :45; Status DC Heparin Sodium (Porcine) (Heparin Sodium) 3,800 unit 1X ONCE INT CAT Last administered on 03/27/17 10:54; Start 03/27/17 at 10:30; Stop 03/27/17 at 10 :45; Status DC Darbepoetin Jean (Aranesp) 60 mcg WEEKLYHS SQ Last administered on 03/27/17 22:38; Start 03/27/17 at 21:00 Info 1 each PRN DAILY PRN MC SEE COMMENTS Last administered on 03/29/17 16:23 ; Start 03/27/17 at 13:45 Sodium Chloride 90 meq/Potassium Chloride 50 meq/ Potassium Phosphate 13.6 mmol/ Magnesium Sulfate 10 meq/ Calcium Gluconate 10 meq/ Multivitamins 10 ml/Chromium / Copper/Manganese/ Seleni/Zn 1 ml/ Total Parenteral Nutrition/Amino Acids/ Dextrose/ Fat Emulsion Intravenous 1,512 ml @ 63 mls/hr TPN CONT IV Last administered on 03/27/17 22:37; Start 03/27/17 at 22:00; Stop 03/28/17 at 21 :59; Status DC Adenosine (Adenocard) 18 mg STK-MED ONCE IV ; Start 03/26/17 at 12:00; Stop at 14:50; Status DC Midazolam HCl (Versed) 5 mg STK-MED ONCE .ROUTE ; Start 03/26/17 at 12:00; Stop 03/27/17 at 14:50; Status DC Sodium Bicarbonate 150 meq STK-MED ONCE .ROUTE ; Start 03/26/17 at 12:00; Stop 03/27/17 at 14:50; Status DC Morphine Sulfate 2 mg PRN Q2HR PRN IV PAIN Last administered on 03/29/17t 15: 22; Start 03/27/17 at 15:30 Midazolam HCl (Versed) 5 mg STK-MED ONCE .ROUTE ; Start 03/25/17 at 12:00; Stop 03/27/17 at 15:30; Status DC Vecuronium Chloride (Norcuron Bolus) 10 mg STK-MED ONCE IV ; Start 03/25/17 at 12:00; Stop 03/27/17 at 15:30; Status DC Albumin Human 200 ml @ 200 mls/hr 1X PRN PRN IV Hypotension; Start 03/27/17 at 19:30; Stop 03/28/17 at 01:29; Status DC Sodium Chloride (Normal Saline Flush) 10 ml 1X PRN PRN IV AP catheter pack; Start 03/27/17 at 19:30; Stop 03/28/17 at 19:29; Status DC Sodium Chloride (Normal Saline Flush) 10 ml 1X PRN PRN IV [employer] catheter pack; Start 03/27/17 at 19:30; Stop 03/28/17 at 19:29; Status DC Info (PHARMACY MONITORING -- do not chart) 1 each PRN DAILY PRN MC SEE COMMENTS ; Start 03/27/17 at 19:30; Status UNV Info (PHARMACY MONITORING -- do not chart) 1 each PRN DAILY PRN MC SEE COMMENTS ; Start 03/27/17 at 19:30; Status UNV Sodium Chloride 90 meq/Potassium Chloride 50 meq/ Potassium Phosphate 13.6 mmol/ Magnesium Sulfate 10 meq/ Calcium Gluconate 5 meq/ Multivitamins 10 ml/Chromium / Copper/Manganese/ Seleni/Zn 1 ml/ Total Parenteral Nutrition/Amino Acids/ Dextrose/ Fat Emulsion Intravenous 1,512 ml @ 63 mls/hr TPN CONT IV Last administered on 03/28/17t 22:10; Start 03/28/17 at 22:00; Stop 03/29/17 at 21 :59; Status DC Levetiracetam (Keppra) 250 mg BID PO Last administered on 03/29/17t 22:45; Start 03/29/17 at 21:00; Stop 03/31/17 at 09:01 Potassium Chloride 50 meq/ Potassium Phosphate 13.6 mmol/Magnesium Sulfate 10 meq/ Calcium Gluconate 5 meq/ Multivitamins 10 ml/Chromium/ Copper/Manganese/ Seleni/Zn 1 ml/ Total Parenteral Nutrition/Amino Acids/Dextrose/ Fat Emulsion Intravenous 1,250 ml @ 52.083 mls/ hr TPN CONT IV Last administered on t 05:19; Start 03/29/17 at 22:00; Stop 03/30/17 at 21:59 Sodium Chloride 1,000 ml @ 1,000 mls/hr Q1H PRN IV hypotension; Start at 14:00; Stop 03/29/17 at 19:59; Status DC Albumin Human 200 ml @ 200 mls/hr 1X PRN PRN IV Hypotension; Start 03/29/17 at 14:00; Stop 03/29/17 at 19:59; Status DC Diphenhydramine HCl (Benadryl) 25 mg 1X PRN PRN IV ITCHING; Start 03/29/17 at 14:00; Stop 03/30/17 at 13:59 Diphenhydramine HCl (Benadryl) 25 mg 1X PRN PRN IV ITCHING; Start 03/29/17 at 14:00; Stop 03/30/17 at 13:59 Sodium Chloride (Normal Saline Flush) 10 ml 1X PRN PRN IV AP catheter pack; Start 03/29/17 at 14:00; Stop 03/30/17 at 13:59 Sodium Chloride (Normal Saline Flush) 10 ml 1X PRN PRN IV AIR TWISTER WINDER catheter pack; Start 03/29/17 at 14:00; Stop 03/30/17 at 13:59 Info (PHARMACY MONITORING -- do not chart) 1 each PRN DAILY PRN MC SEE COMMENTS ; Start 03/29/17 at 14:00 Furosemide (Lasix) 40 mg [id number] IVP ; Start 03/29/17 at 14:30; Status Cancel Furosemide (Lasix) 40 mg [id number] IVP Last administered on 03/29/17 15:28; Start 03/29/17 at 14:15; Stop 03/31/17 at 09:01 Digoxin (Lanoxin) 500 mcg 1X ONCE IV Last administered on 03/29/17 14:44; Start 03/29/17 at 14:45; Stop 03/29/17 at 14:46; Status DC Albumin Human 500 ml @ 125 mls/hr 1X ONCE IV ; Start 03/29/17 at 14:45; Stop 03/29/17 at 18:44; Status DC Dobutamine HCl/ Dextrose 250 ml @ 0 mls/hr CONT PRN IV SEE I/O RECORD Last administered on 03/29/17 18:10; Start 03/29/17 at 17:45 Albuterol/ Ipratropium (Duoneb) 3 ml RTQID NEB Last administered on 03/30/17 08:21; Start 03/29/17 at 20:00 Albuterol Sulfate (Ventolin Neb Soln) 2.5 mg PRN Q4HRS PRN NEB SHORTNESS OF BREATH; Start 03/29/17 at 18:45 Sodium Chloride 1,000 ml @ 1,000 mls/hr Q1H PRN IV hypotension; Start at 08:10; Stop 03/30/17 at 14:09 Diphenhydramine HCl (Benadryl) 25 mg 1X PRN PRN IV ITCHING; Start 03/30/17 at 08:15; Stop 03/31/17 at 08:14 Diphenhydramine HCl (Benadryl) 25 mg 1X PRN PRN IV ITCHING; Start 03/30/17 at 08:15; Stop 03/31/17 at 08:14 Sodium Chloride 1,000 ml @ 400 mls/hr Q2H30M PRN IV PATENCY; Start 03/30/17 at 08:10; Stop 03/30/17 at 20:09 Info (PHARMACY MONITORING -- do not chart) 1 each PRN DAILY PRN MC SEE COMMENTS ; Start 03/30/17 at 08:15; Stop 03/30/17 at 08:25; Status DC Active Scripts Active Reported Multivitamins (Multivitamin) 1 Each Tablet 1 Tab PO DAILY Omeprazole 20 Mg Capsule. 1 Cap PO DAILY Vitals/I & O Vital Sign - Last 24 Hours 10/18/17 10/18/17 10/18/17 10/18/17 09:43 10:56 14:44 15:00 Temp 97.6 97.6 Pulse 119 134 Resp 24 B/P (MAP) 141/97 (112) 141/97 Pulse Ox 92 92 O2 Delivery BiPAP/CPAP NonRebreather Mask Bi-pap O2 Flow Rate 40.0 03/29/17 03/29/17 03/29/17 03/29/17 15:00 15:15 15:22 15:30 Temp 98.4 98.4 Pulse 130 132 Resp 54 46 56 B/P (MAP) 163/109 (127) 184/108 (133) Pulse Ox 91 93 92 94 O2 Delivery BiPAP/CPAP BiPAP/CPAP BiPAP/CPAP BiPAP/CPAP 03/29/17 03/29/17 03/29/17 03/29/17 15:30 15:45 15:55 16:00 Pulse 134 116 112 Resp 42 41 36 41 B/P (MAP) 174/105 (128) 151/93 (112) 148/87 (107) Pulse Ox 93 97 100 99 O2 Delivery BiPAP/CPAP BiPAP/CPAP BiPAP/CPAP BiPAP/CPAP 03/29/17 03/29/17 03/29/17 03/29/17 17:00 17:00 17:09 18:00 Temp 100.0 100.0 Pulse 110 96 Resp 36 33 B/P (MAP) 148/80 (102) 137/84 (101) Pulse Ox 99 100 100 O2 Delivery Bi-pap BiPAP/CPAP BiPAP/CPAP BiPAP/CPAP 03/29/17 03/29/17 03/29/17 03/29/17 19:47 20:00 20:00 21:00 Temp 99.9 99.9 Pulse 102 102 Resp 24 25 B/P (MAP) 132/90 (104) 119/82 (94) Pulse Ox 100 99 98 O2 Delivery BiPAP/CPAP Bi-pap BiPAP/CPAP BiPAP/CPAP 03/29/17 03/30/17 03/30/17 03/30/17 22:00 00:00 00:00 00:07 Temp 99.9 99.9 Pulse 96 106 Resp 27 22 B/P (MAP) 115/75 (88) 122/79 (93) Pulse Ox 97 97 98 O2 Delivery BiPAP/CPAP Bi-pap BiPAP/CPAP BiPAP/CPAP 03/30/17 03/30/17 03/30/17 03/30/17 01:00 02:00 02:26 03:00 Pulse 99 93 90 Resp 24 21 20 B/P (MAP) 128/79 (95) 125/78 (94) 114/80 (91) Pulse Ox 97 97 97 97 O2 Delivery BiPAP/CPAP BiPAP/CPAP BiPAP/CPAP BiPAP/CPAP 03/30/17 03/30/17 03/30/17 03/30/17 03:58 04:00 04:00 05:00 Temp 99.1 99.1 Pulse 98 96 Resp 20 19 B/P (MAP) 118/77 (91) 121/80 (94) Pulse Ox 98 97 96 O2 Delivery BiPAP/CPAP Bi-pap BiPAP/CPAP BiPAP/CPAP 03/30/17 03/30/17 05:34 06:00 Pulse 100 Resp 22 B/P (MAP) 130/86 (101) Pulse Ox 98 98 O2 Delivery BiPAP/CPAP Nasal Cannula O2 Flow Rate 3.0 MATTHIAS ZULETA MD Mar 30, 2017 08:40
[2017-03-30 09:20] LABS: FIO2 ABG 28
--- NOTE | 2017-03-30 10:06 | PDOC ---
PROGRESS NOTES Chief Complaint Chief Complaint Acute appendicitis ASSESSMENT AND PLAN: Acute appendicitis with perforation: s/p lap appendectomy 03/15; path with acute and chronic appendicitis Morbid obesity BMI 44, s/p gastric sleeve 02/2017 1. CHF: unclear etiology. echo with EF 30% 2. Hypotension: resolved; still on low dose dobutamine as per Dr Vega 3. Acute respir failure: 2/2 fluid overload. extubated 03/27/2017, readmitted to ICU last night due to dyspnea, now resolved 4. Acute renal failure: on HD since 03/27, receiving today, with aggressive UF. not oliguric 5. Seizures, new onset, provoked (metabolic?): on keppra as per Dr Martinez 6. Metabolic encephalopathy: resolved 7. Hyperglycemia: minimal, on TPN currently. check HgbA1c 8. Hypokalemia, Hyperkalemia: improving. correction with HD 9. Hypoalbuminemia: malnutrition and severe inflammation. 10. Peritonitis/?aspiration: on Zosyn since 03/25. Dr Casey following 11. Leukocytosis: reactive. resolved 12. Thrombocytosis: reactive. resolved 13. Anemia: normocytic, normochromic. worsening slowly. response to inflammation and renal failure. monitor; EPO with HD 14. Prophylaxis: heparin SQ History of Present Illness History of Present Illness tired, but breathing improved. denies pain Vitals Vitals Vital Signs Date Time Temp Pulse Resp B/P (MAP) Pulse Ox O2 Delivery O2 Flow Rate FiO2 03/30/17 08:23 96 Nasal Cannula 2.0 03/30/17 06:00 100 22 130/86 (101) 03/30/17 04:00 99.1 99.1 Physical Exam General: Alert, Oriented X3, Cooperative, No acute distress Heart: Regular rate, No murmurs Lungs: Clear Abdomen: Normal bowel sounds, Soft, No tenderness, Other (lap incisions well healing; few bruises from SQ injections) Extremities: No edema Skin: No rashes Labs LABS Laboratory Tests Test 03/29/17 10:30 03/29/17 11:59 03/29/17 15:04 03/29/17 19:09 O2 Saturation 93 % (92-99) 92 % (92-99) 96 % (92-99) Arterial Blood pH 7.42 (7.35-7.45) 7.38 (7.35-7.45) 7.49 (7.35-7.45) Arterial Blood pCO2 at Patient Temp 41 mmHg (35-46) 41 mmHg (35-46) 36 mmHg (35-46) Arterial Blood pO2 at Patient Temp 71 mmHg (85-108) 72 mmHg (85-108) 83 mmHg (85-108) Arterial Blood HCO3 26 mmol/L (21-28) 24 mmol/L (21-28) 26 mmol/L (21-28) Arterial Blood Base Excess 2 mmol/L (-3-3) -1 mmol/L (-3-3) 3 mmol/L (-3-3) FiO2 35 35 35 Glucose (Fingerstick) 132 mg/dL (70-99) Test 03/30/17 04:55 White Blood Count 10.8 x10^3/uL (4.0-11.0) Red Blood Count 3.20 x10^6/uL (3.50-5.40) Hemoglobin 9.8 g/dL (12.0-15.5) Hematocrit 28.7 % (36.0-47.0) Mean Corpuscular Volume 90 fL (79-100) Mean Corpuscular Hemoglobin 31 pg (25-35) Mean Corpuscular Hemoglobin Concent 34 g/dL (31-37) Red Cell Distribution Width 16.0 % (11.5-14.5) Platelet Count 296 x10^3/uL (140-400) Neutrophils (%) (Auto) 67 % (31-73) Lymphocytes (%) (Auto) 20 % (24-48) Monocytes (%) (Auto) 7 % (0-9) Eosinophils (%) (Auto) 4 % (0-3) Basophils (%) (Auto) 1 % (0-3) Neutrophils # (Auto) 7.3 x10^3uL (1.8-7.7) Lymphocytes # (Auto) 2.2 x10^3/uL (1.0-4.8) Monocytes # (Auto) 0.8 x10^3/uL (0.0-1.1) Eosinophils # (Auto) 0.4 x10^3/uL (0.0-0.7) Basophils # (Auto) 0.1 x10^3/uL (0.0-0.2) Sodium Level 146 mmol/L (136-145) Potassium Level 3.5 mmol/L (3.5-5.1) Chloride Level 105 mmol/L (98-107) Carbon Dioxide Level 34 mmol/L (21-32) Anion Gap 7 (6-14) Blood Urea Nitrogen 20 mg/dL (7-20) Creatinine 2.6 mg/dL (0.6-1.0) Estimated GFR (Cockcroft-Gault) 21.9 Glucose Level 90 mg/dL (70-99) Calcium Level 8.6 mg/dL (8.5-10.1) Phosphorus Level 4.5 mg/dL (2.6-4.7) Magnesium Level 1.9 mg/dL (1.8-2.4) ALBIN GUAJARDO MD Mar 30, 2017 10:06
--- NOTE | 2017-03-30 10:25 | PDOC ---
PROGRESS NOTES Subjective Subjective Yesterday was moved to floor and then re-admitted to ICU because of dyspnea and oxygen desats. Dyspnea has improved. Patient was on HD this morning, and dialysis nurse reported taking off approx 4 L's of fluid yesterday, with goal of removing approx 4L again today. Patient continues to produce good amounts of urine Objective Objective Vital Signs Date Time Temp Pulse Resp B/P (MAP) Pulse Ox O2 Delivery O2 Flow Rate FiO2 03/30/17 09:00 98 20 136/91 (106) 96 Nasal Cannula 2.0 03/30/17 07:00 98.3 98.3 Intake and Output 03/31/17 07:00 Intake Total 30 ml Output Total 225 ml Balance -195 ml Intake Oral 30 ml Output Urine Total 225 ml Physical Exam Physical Exam General: no acute distress with NC on 2L O2 and on HD in ICU HEENT: EOMI, moist mucous membranes, no JVD appreciated CV: regular rate and rhythm without murmurs on auscultation Resp: non-labored breathing; clear lung sounds bilaterally abdomen: obese, soft, non-distended extremities: no lower extremity edema; no clubbing or cyanosis Diagnosis DIAGNOSIS 1. cardiomyopathy 2. acute respiratory failure 3. emily/atn 4. hypotension 5. seizure Problems: Assessment Assessment Patient is a 26 year old female who had acute respiratory failure on 03/25 with intubation. Yesterday, she had acute respiratory distress and was re-admitted to the ICU where she was placed on BiPAP, currently on 2L NC and maintaining oxygen saturation goals 1. cardiomyopathy--unclear etiology; Echocardiogram showed EF 30% 2. acute respiratory failure--s/p extubation on 03/27/17 and currently on 2L O2 via NC 3. EMILY/ATN--non-oliguric; she had HD yesterday and is also having it again today to aggressively remove fluid 4. hypotension--resolved; 5. seizure--currently on Keppra Plan Plan of Care Plan of Care Will Start Carvedilol and Losartan when possible needs evaluation for COURTNEY appears to be improving clinically Comment Review of Relevant I have reviewed the following items na (where applicable) has been applied. Labs Laboratory Tests Test 03/29/17 04:00 03/29/17 05:43 03/29/17 10:30 03/29/17 11:59 White Blood Count 11.4 x10^3/uL (4.0-11.0) Red Blood Count 3.27 x10^6/uL (3.50-5.40) Hemoglobin 9.7 g/dL (12.0-15.5) Hematocrit 29.3 % (36.0-47.0) Mean Corpuscular Volume 90 fL (79-100) Mean Corpuscular Hemoglobin 30 pg (25-35) Mean Corpuscular Hemoglobin Concent 33 g/dL (31-37) Red Cell Distribution Width 15.9 % (11.5-14.5) Platelet Count 335 x10^3/uL (140-400) Neutrophils (%) (Auto) 78 % (31-73) Lymphocytes (%) (Auto) 14 % (24-48) Monocytes (%) (Auto) 6 % (0-9) Eosinophils (%) (Auto) 1 % (0-3) Basophils (%) (Auto) 1 % (0-3) Neutrophils # (Auto) 8.9 x10^3uL (1.8-7.7) Lymphocytes # (Auto) 1.6 x10^3/uL (1.0-4.8) Monocytes # (Auto) 0.7 x10^3/uL (0.0-1.1) Eosinophils # (Auto) 0.2 x10^3/uL (0.0-0.7) Basophils # (Auto) 0.1 x10^3/uL (0.0-0.2) Sodium Level 150 mmol/L (136-145) Potassium Level 4.0 mmol/L (3.5-5.1) Chloride Level 110 mmol/L (98-107) Carbon Dioxide Level 31 mmol/L (21-32) Anion Gap 9 (6-14) Blood Urea Nitrogen 26 mg/dL (7-20) Creatinine 3.3 mg/dL (0.6-1.0) Estimated GFR (Cockcroft-Gault) 16.6 Glucose Level 118 mg/dL (70-99) Calcium Level 8.7 mg/dL (8.5-10.1) Phosphorus Level 4.3 mg/dL (2.6-4.7) Magnesium Level 2.1 mg/dL (1.8-2.4) Triglycerides Level 174 mg/dL (0-150) Glucose (Fingerstick) 130 mg/dL (70-99) 132 mg/dL (70-99) O2 Saturation 93 % (92-99) Arterial Blood pH 7.42 (7.35-7.45) Arterial Blood pCO2 at Patient Temp 41 mmHg (35-46) Arterial Blood pO2 at Patient Temp 71 mmHg (85-108) Arterial Blood HCO3 26 mmol/L (21-28) Arterial Blood Base Excess 2 mmol/L (-3-3) FiO2 35 Test 03/29/17 15:04 03/29/17 19:09 03/30/17 04:55 03/30/17 08:00 O2 Saturation 92 % (92-99) 96 % (92-99) 96 % (92-99) Arterial Blood pH 7.38 (7.35-7.45) 7.49 (7.35-7.45) 7.49 (7.35-7.45) Arterial Blood pCO2 at Patient Temp 41 mmHg (35-46) 36 mmHg (35-46) 41 mmHg (35-46) Arterial Blood pO2 at Patient Temp 72 mmHg (85-108) 83 mmHg (85-108) 83 mmHg (85-108) Arterial Blood HCO3 24 mmol/L (21-28) 26 mmol/L (21-28) 30 mmol/L (21-28) Arterial Blood Base Excess -1 mmol/L (-3-3) 3 mmol/L (-3-3) 6 mmol/L (-3-3) FiO2 35 35 28 White Blood Count 10.8 x10^3/uL (4.0-11.0) Red Blood Count 3.20 x10^6/uL (3.50-5.40) Hemoglobin 9.8 g/dL (12.0-15.5) Hematocrit 28.7 % (36.0-47.0) Mean Corpuscular Volume 90 fL (79-100) Mean Corpuscular Hemoglobin 31 pg (25-35) Mean Corpuscular Hemoglobin Concent 34 g/dL (31-37) Red Cell Distribution Width 16.0 % (11.5-14.5) Platelet Count 296 x10^3/uL (140-400) Neutrophils (%) (Auto) 67 % (31-73) Lymphocytes (%) (Auto) 20 % (24-48) Monocytes (%) (Auto) 7 % (0-9) Eosinophils (%) (Auto) 4 % (0-3) Basophils (%) (Auto) 1 % (0-3) Neutrophils # (Auto) 7.3 x10^3uL (1.8-7.7) Lymphocytes # (Auto) 2.2 x10^3/uL (1.0-4.8) Monocytes # (Auto) 0.8 x10^3/uL (0.0-1.1) Eosinophils # (Auto) 0.4 x10^3/uL (0.0-0.7) Basophils # (Auto) 0.1 x10^3/uL (0.0-0.2) Sodium Level 146 mmol/L (136-145) Potassium Level 3.5 mmol/L (3.5-5.1) Chloride Level 105 mmol/L (98-107) Carbon Dioxide Level 34 mmol/L (21-32) Anion Gap 7 (6-14) Blood Urea Nitrogen 20 mg/dL (7-20) Creatinine 2.6 mg/dL (0.6-1.0) Estimated GFR (Cockcroft-Gault) 21.9 Glucose Level 90 mg/dL (70-99) Calcium Level 8.6 mg/dL (8.5-10.1) Phosphorus Level 4.5 mg/dL (2.6-4.7) Magnesium Level 1.9 mg/dL (1.8-2.4) Laboratory Tests Test 03/29/17 10:30 03/29/17 11:59 03/29/17 15:04 03/29/17 19:09 O2 Saturation 93 % (92-99) 92 % (92-99) 96 % (92-99) Arterial Blood pH 7.42 (7.35-7.45) 7.38 (7.35-7.45) 7.49 (7.35-7.45) Arterial Blood pCO2 at Patient Temp 41 mmHg (35-46) 41 mmHg (35-46) 36 mmHg (35-46) Arterial Blood pO2 at Patient Temp 71 mmHg (85-108) 72 mmHg (85-108) 83 mmHg (85-108) Arterial Blood HCO3 26 mmol/L (21-28) 24 mmol/L (21-28) 26 mmol/L (21-28) Arterial Blood Base Excess 2 mmol/L (-3-3) -1 mmol/L (-3-3) 3 mmol/L (-3-3) FiO2 35 35 35 Glucose (Fingerstick) 132 mg/dL (70-99) Test 03/30/17 04:55 03/30/17 08:00 White Blood Count 10.8 x10^3/uL (4.0-11.0) Red Blood Count 3.20 x10^6/uL (3.50-5.40) Hemoglobin 9.8 g/dL (12.0-15.5) Hematocrit 28.7 % (36.0-47.0) Mean Corpuscular Volume 90 fL (79-100) Mean Corpuscular Hemoglobin 31 pg (25-35) Mean Corpuscular Hemoglobin Concent 34 g/dL (31-37) Red Cell Distribution Width 16.0 % (11.5-14.5) Platelet Count 296 x10^3/uL (140-400) Neutrophils (%) (Auto) 67 % (31-73) Lymphocytes (%) (Auto) 20 % (24-48) Monocytes (%) (Auto) 7 % (0-9) Eosinophils (%) (Auto) 4 % (0-3) Basophils (%) (Auto) 1 % (0-3) Neutrophils # (Auto) 7.3 x10^3uL (1.8-7.7) Lymphocytes # (Auto) 2.2 x10^3/uL (1.0-4.8) Monocytes # (Auto) 0.8 x10^3/uL (0.0-1.1) Eosinophils # (Auto) 0.4 x10^3/uL (0.0-0.7) Basophils # (Auto) 0.1 x10^3/uL (0.0-0.2) Sodium Level 146 mmol/L (136-145) Potassium Level 3.5 mmol/L (3.5-5.1) Chloride Level 105 mmol/L (98-107) Carbon Dioxide Level 34 mmol/L (21-32) Anion Gap 7 (6-14) Blood Urea Nitrogen 20 mg/dL (7-20) Creatinine 2.6 mg/dL (0.6-1.0) Estimated GFR (Cockcroft-Gault) 21.9 Glucose Level 90 mg/dL (70-99) Calcium Level 8.6 mg/dL (8.5-10.1) Phosphorus Level 4.5 mg/dL (2.6-4.7) Magnesium Level 1.9 mg/dL (1.8-2.4) O2 Saturation 96 % (92-99) Arterial Blood pH 7.49 (7.35-7.45) Arterial Blood pCO2 at Patient Temp 41 mmHg (35-46) Arterial Blood pO2 at Patient Temp 83 mmHg (85-108) Arterial Blood HCO3 30 mmol/L (21-28) Arterial Blood Base Excess 6 mmol/L (-3-3) FiO2 28 Microbiology 03/25/17 Blood Culture - Preliminary, Resulted NO GROWTH AFTER 4 DAYS Medications Current Medications Dexamethasone Sodium Phosphate (Decadron) 20 mg STK-MED ONCE .ROUTE ; Start 03/15/17 at 14:06; Stop 03/15/17 at 14:07; Status DC Ondansetron HCl (Zofran) 4 mg STK-MED ONCE .ROUTE ; Start 03/15/17 at 14:06; Stop 03/15/17 at 14:07; Status DC Propofol 20 ml @ As Directed STK-MED ONCE IV ; Start 03/15/17 at 14:06; Stop at 14:07; Status DC Lidocaine HCl (Lidocaine Pf 2% Vial) 5 ml STK-MED ONCE .ROUTE ; Start 03/15/17 at 14:06; Stop 03/15/17 at 14:07; Status DC Midazolam HCl (Versed) 2 mg STK-MED ONCE .ROUTE ; Start 03/15/17 at 14:06; Stop 03/15/17 at 14:07; Status DC Fentanyl Citrate (Fentanyl 2ml Vial) 100 mcg STK-MED ONCE .ROUTE ; Start at 14:06; Stop 03/15/17 at 14:07; Status DC Rocuronium Teague (Zemuron) 100 mg STK-MED ONCE .ROUTE ; Start 03/15/17 at 14: 07; Stop 03/15/17 at 14:08; Status DC Succinylcholine Chloride (Anectine) 200 mg STK-MED ONCE .ROUTE ; Start 03/15/17 at 14:07; Stop 03/15/17 at 14:08; Status DC Bupivacaine HCl/ Epinephrine Bitart (Marcaine-Epi 0.5%-[id number]) 50 ml STK-MED ONCE .ROUTE Last administered on 03/15/17 14:54; Start 03/15/17 at 13:07; Stop 03/15/17 at 14:08; Status DC Cefoxitin Sodium 2 gm/Sodium Chloride 100 ml @ 200 mls/hr 1X PREOP IV Last administered on 03/15/17 14:55; Start 03/15/17 at 16:00; Stop 03/16/17 at 14:41 ; Status DC Sodium Chloride 1,000 ml @ 125 mls/hr 1X ONCE IV Last administered on 14:15; Start 03/15/17 at 14:15; Stop 03/15/17 at 22:14; Status DC Cefoxitin Sodium 100 ml @ As Directed STK-MED ONCE IV ; Start 03/15/17 at 14:53 ; Stop 03/15/17 at 14:54; Status DC Enoxaparin Sodium (Lovenox 40mg Syringe) 40 mg Q24H SQ ; Start 03/15/17 at 15:30 ; Stop 03/16/17 at 14:38; Status DC Sodium Chloride (Normal Saline Flush) 3 ml QSHIFT PRN IV AFTER MEDS AND BLOOD DRAWS; Start 03/15/17 at 15:30 Ringer's Solution 1,000 ml @ 75 mls/hr [id number] IV Last administered on 21:12; Start 03/15/17 at 15:19; Stop 03/27/17 at 12:51; Status DC Acetaminophen/ Hydrocodone Bitart (Lortab 5/325) 1 tab PRN Q4HRS PRN PO MILD PAIN Last administered on 03/16/17 02:56; Start 03/15/17 at 15:30; Stop at 13:05; Status DC Ketorolac Tromethamine (Toradol) 15 mg PRN Q6HRS PRN IV PAIN; Start 03/15/17 at 15:30; Stop 03/16/17 at 09:05; Status DC Morphine Sulfate 2 mg PRN Q1HR PRN IV PAIN Last administered on 03/22/17 09: 36; Start 03/15/17 at 15:30; Stop 03/27/17 at 12:51; Status DC Docusate Sodium (Colace) 100 mg BID PO Last administered on 03/17/17 13:04; Start 03/15/17 at 21:00 Ondansetron HCl (Zofran) 4 mg PRN Q6HRS PRN IV NAUESA, 1ST CHOICE Last administered on 03/22/17 06:34; Start 03/15/17 at 15:30; Stop 03/22/17 at 09: 09; Status DC Piperacillin Sod/ Tazobactam Sod 3.375 gm/Sodium Chloride 50 ml @ 100 mls/hr Q6HRS IV Last administered on 03/21/17 06:20; Start 03/15/17 at 18:00; Stop 03/21/17 at 09:24; Status DC Morphine Sulfate 10 mg STK-MED ONCE .ROUTE ; Start 03/15/17 at 15:32; Stop 03/15 at 15:33; Status DC Ringer's Solution 1,000 ml @ 125 mls/hr Q8H IV Last administered on 03/16/17 00:51; Start 03/15/17 at 15:42; Stop 03/16/17 at 03:41; Status DC Lidocaine HCl (Xylocaine-Mpf 1% Vial) 0.5 ml 1X PRN PRN INJ IV START; Start at 15:45; Stop 03/16/17 at 15:44; Status DC Ringer's Solution 1,000 ml @ 125 mls/hr Q8H IV ; Start 03/15/17 at 15:42; Stop 03/15/17 at 21:41; Status DC Fentanyl Citrate (Fentanyl 2ml Vial) 25 mcg PRN Q5MIN PRN IV Acute Pain; Start 03/15/17 at 15:45; Stop 03/16/17 at 09:05; Status DC Fentanyl Citrate (Fentanyl 2ml Vial) 50 mcg PRN Q5MIN PRN IV Acute Pain Last administered on 03/15/17 15:58; Start 03/15/17 at 15:45; Stop 03/16/17 at 09:05 ; Status DC Morphine Sulfate 2 mg PRN Q10MIN PRN IV Mild Pain; Start 03/15/17 at 15:45; Stop 03/16/17 at 09:05; Status DC Morphine Sulfate 4 mg PRN Q10MIN PRN IV Moderate Pain; Start 03/15/17 at 15:45 ; Stop 03/16/17 at 09:05; Status DC Ondansetron HCl (Zofran) 4 mg PRN Q6HRS PRN IV Nausea, 1st Choice; Start at 15:45; Stop 03/16/17 at 09:05; Status DC Metoclopramide HCl (Reglan) 10 mg PRN Q6HRS PRN IV Nausea/Vomiting, 2nd Choice Last administered on 03/15/17t 18:49; Start 03/15/17 at 15:45; Stop 03/16/17 at 15:44; Status DC Diphenhydramine HCl (Benadryl) 12.5 mg PRN Q2HR PRN IV ITCHING; Start 03/15/17 at 15:45; Stop 03/16/17 at 15:44; Status DC Albuterol Sulfate (Ventolin Neb Soln) 2.5 mg PRN 1X PRN NEB Shortness of Breath , Wheezing; Start 03/15/17 at 15:45; Stop 03/16/17 at 15:44; Status DC Dexamethasone Sodium Phosphate (Decadron) 8 mg 1X PRN PRN IV 3RD CHOICE FOR NAUSEA; Start 03/15/17 at 15:45; Stop 03/16/17 at 15:44; Status DC Meperidine HCl (Demerol) 10 mg 1X PERIOP PRN IV SHIVERING; Start 03/15/17 at 15 :45; Stop 03/16/17 at 15:44; Status DC Meperidine HCl (Demerol) 15 mg 1X PERIOP PRN IV SHIVERING; Start 03/15/17 at 15 :45; Stop 03/16/17 at 15:44; Status DC Prochlorperazine Edisylate (Compazine) 10 mg STK-MED ONCE .ROUTE ; Start at 15:48; Stop 03/15/17 at 15:49; Status DC Prochlorperazine Maleate (Compazine) 5 mg 1X PACU PRN PO NAUSEA/VOMITING; Start 03/15/17 at 16:00; Stop 03/19/17 at 19:03; Status DC Hydromorphone HCl (Dilaudid) 0.5 mg PRN Q10MIN PRN IV PAIN Last administered on 03/15/17 16:52; Start 03/15/17 at 16:15; Stop 03/16/17 at 09:05; Status DC Acetaminophen/ Hydrocodone Bitart (Lortab 5/325) 2 tab PRN Q4HRS PRN PO PAIN Last administered on 03/16/17 10:16; Start 03/16/17 at 09:15; Stop 03/16/17 at 13:05; Status DC Multivitamins (Thera M Plus) 1 tab DAILY PO Last administered on 03/27/17 11: 29; Start 03/16/17 at 13:00 Pantoprazole Sodium (Protonix) 40 mg DAILYAC PO Last administered on 03/20/17 08:48; Start 03/16/17 at 13:00; Stop 03/20/17 at 11:14; Status DC Oxycodone/ Acetaminophen (Percocet 7.5/ 325) 1 tab PRN Q4HRS PRN PO PAIN Last administered on 03/23/17 14:59; Start 03/16/17 at 13:15 Morphine Sulfate 4 mg PRN Q2HR PRN IV PAIN Last administered on 03/18/17 14:11 ; Start 03/16/17 at 13:15; Stop 03/27/17 at 12:51; Status DC Enoxaparin Sodium (Lovenox 40mg Syringe) 40 mg Q12HR SQ Last administered on 08:47; Start 03/16/17 at 21:00; Stop 03/20/17 at 16:57; Status DC Iohexol (Omnipaque 300 Mg/ml) 75 ml 1X ONCE IV Last administered on 03/17/17 08:00; Start 03/17/17 at 08:00; Stop 03/17/17 at 08:01; Status DC Iohexol (Omnipaque 240 Mg/ml) 50 ml 1X ONCE PO Last administered on 03/17/17 08:00; Start 03/17/17 at 08:00; Stop 03/17/17 at 08:01; Status DC Info (Do NOT chart on this entry -- for MONITORING) 1 each PRN DAILY PRN MC SEE COMMENTS; Start 03/17/17 at 07:45; Stop 03/19/17 at 07:44; Status DC Sodium Chloride 1,000 ml @ 1,000 mls/hr 1X ONCE IV Last administered on 08:00; Start 03/17/17 at 08:00; Stop 03/17/17 at 08:59; Status DC Vancomycin HCl (Vanco Per Pharmacy) 1 each PRN DAILY PRN MC SEE COMMENTS Last administered on 03/18/17 14:24; Start 03/17/17 at 08:00; Stop 03/19/17 at 11:10 ; Status DC Fluconazole/ Sodium Chloride 200 ml @ 100 mls/hr Q24H IV Last administered on 03/21/17 08:07; Start 03/17/17 at 09:00; Stop 03/21/17 at 09:24; Status DC Vancomycin HCl 2 gm/Sodium Chloride 500 ml @ 250 mls/hr 1X ONCE IV Last administered on 03/17/17 13:08; Start 03/17/17 at 09:00; Stop 03/17/17 at 10:59 ; Status DC Acetaminophen (Tylenol) 650 mg PRN Q6HRS PRN PO FEVER Last administered on 16:34; Start 03/17/17 at 08:15 Vancomycin HCl 2 gm/Sodium Chloride 500 ml @ 250 mls/hr Q8H IV Last administered on 03/19/17 05:41; Start 03/17/17 at 22:00; Stop 03/19/17 at 11:10 ; Status DC Vancomycin HCl 1 each 1X ONCE MC ; Start 03/18/17 at 13:30; Stop 03/18/17 at 13 :31; Status DC Calcium Carbonate/ Glycine (Tums) 1,000 mg PRN Q4HRS PRN PO INDIGESTION Last administered on 03/17/17 23:57; Start 03/17/17 at 23:45 Potassium Chloride (Klor-Con) 40 meq 1X ONCE PO Last administered on 14:14; Start 03/18/17 at 12:45; Stop 03/18/17 at 12:46; Status DC Vancomycin HCl 1 each 1X ONCE MC ; Start 03/19/17 at 13:30; Stop 03/19/17 at 13 :30; Status DC Sodium Chloride 1,000 ml @ 1,000 mls/hr 1X ONCE IV Last administered on 10/8/ 17at 14:28; Start 03/19/17 at 12:15; Stop 03/19/17 at 13:14; Status DC Pantoprazole Sodium (Protonix) 40 mg BIDAC PO Last administered on 03/25/17 08:31; Start 03/20/17 at 16:30; Stop 03/25/17 at 16:05; Status DC Simethicone (Gas-X) 80 mg PRN AFTMEALHC PRN PO GAS / BLOATING Last administered on 03/22/17 08:55; Start 03/20/17 at 11:15 Al Hydroxide/Mg Hydroxide (Mylanta Plus Xs) 30 ml PRN Q2HR PRN PO HEARTBURN / GAS; Start 03/20/17 at 11:15 Enoxaparin Sodium (Lovenox 40mg Syringe) 40 mg DAILY SQ Last administered on 08:09; Start 03/21/17 at 09:00; Stop 03/22/17 at 12:42; Status DC Fluconazole/ Sodium Chloride 100 ml @ 100 mls/hr Q24H IV ; Start 03/22/17 at 09:00; Stop 03/22/17 at 09:00; Status DC Piperacillin Sod/ Tazobactam Sod 3.375 gm/Sodium Chloride 50 ml @ 100 mls/hr Q12HR IV ; Start 03/21/17 at 21:00; Stop 03/21/17 at 21:00; Status DC Fluconazole/ Sodium Chloride 100 ml @ 100 mls/hr Q24H IV Last administered on 03/22/17 09:30; Start 03/22/17 at 09:00; Stop 03/23/17 at 10:05; Status DC Piperacillin Sod/ Tazobactam Sod 2.25 gm/Sodium Chloride 50 ml @ 100 mls/hr Q6HRS IV Last administered on 03/23/17 05:58; Start 03/21/17 at 12:00; Stop 03/23/17 at 10:05; Status DC Ondansetron HCl (Zofran) 8 mg PRN Q8HRS PRN IV NAUESA, 1ST CHOICE Last administered on 03/29/17 13:45; Start 03/22/17 at 09:15 Prochlorperazine Edisylate (Compazine) 10 mg PRN Q8HRS PRN IV NAUSEA/VOMITING - 2nd choice Last administered on 03/25/17 10:23; Start 03/22/17 at 09:15 Amino Acids/ Glycerin/ Electrolytes 1,000 ml @ 80 mls/hr [id number] IV Last administered on 03/27/17 06:09; Start 03/22/17 at 11:45; Stop 03/27/17 at 21 :59; Status DC Heparin Sodium (Porcine) (Heparin Sq) 5,000 unit Q8HRS SQ Last administered on 03/25/17 06:07; Start 03/22/17 at 14:00; Stop 03/25/17 at 08:45; Status DC Loperamide HCl (Imodium) 2 mg PRN Q15MIN PRN PO DIARRHEA; Start 03/23/17 at 08 :00 Amoxicillin/ Clavulanate Potassium (Augmentin 500/ 125mg) 1 tab BID PO Last administered on 03/25/17 08:31; Start 03/23/17 at 10:30; Stop 03/25/17 at 14 :03; Status DC Promethazine HCl (Phenergan) 25 mg PRN Q6HRS PRN [place] NAUSEA/VOMITING; Start 05/28 at 15:15 Furosemide (Lasix) 80 mg 1X ONCE IVP Last administered on 03/24/17 12:13; Start 03/24/17 at 11:30; Stop 03/24/17 at 11:31; Status DC Iohexol (Omnipaque 240 Mg/ml) 50 ml 1X ONCE PO Last administered on 09:30; Start 03/25/17 at 09:30; Stop 03/25/17 at 09:31; Status DC Iohexol (Omnipaque 240 Mg/ml) 50 ml 1X ONCE PO Last administered on 12:32; Start 03/25/17 at 12:30; Stop 03/25/17 at 12:31; Status DC Lorazepam (Ativan) 1 mg 1X ONCE IV Last administered on 03/25/17 13:40; Start 03/25/17 at 14:00; Stop 03/25/17 at 14:01; Status DC Piperacillin Sod/ Tazobactam Sod 2.25 gm/Sodium Chloride 50 ml @ 100 mls/hr Q8HRS IV Last administered on 03/30/17 06:12; Start 03/25/17 at 15:00 Levetiracetam 500 mg/Sodium Chloride 100 ml @ 400 mls/hr Q12HR IV ; Start at 15:00; Stop 03/25/17 at 15:00; Status DC Lorazepam (Ativan) 2 mg PRN Q1HR PRN IV SEIZURE Last administered on 14:30; Start 03/25/17 at 14:15; Stop 03/25/17 at 15:27; Status DC Levetiracetam 750 mg/Sodium Chloride 107.5 ml @ 400 mls/hr Q12HR IV Last administered on 03/28/17 21:02; Start 03/25/17 at 15:00; Stop 03/29/17 at 09 :12; Status DC Digoxin (Lanoxin) 500 mcg 1X ONCE IV Last administered on 03/25/17 14:34; Start 03/25/17 at 14:30; Stop 03/25/17 at 14:31; Status DC Norepinephrine Bitartrate 250 ml @ 0 mls/hr CONT PRN IV SEE I/O RECORD Last administered on 03/25/17 21:53; Start 03/25/17 at 14:30 Sodium Chloride 1,000 ml @ 1,000 mls/hr 1X ONCE IV Last administered on 03/25 15:38; Start 03/25/17 at 15:00; Stop 03/25/17 at 15:59; Status DC Lorazepam (Ativan) 2 mg PRN Q4HRS PRN IV ANXIETY / AGITATION Last administered on 03/25/17 15:55; Start 03/25/17 at 15:30 Propofol 100 ml @ As Directed STK-MED ONCE IV ; Start 03/25/17 at 15:28; Stop 03/25/17 at 15:29; Status DC Propofol 100 ml @ 0 mls/hr CONT PRN IV SEE I/O RECORD Last administered on 11:00; Start 03/25/17 at 15:45 Sodium Bicarbonate 150 meq 1X ONCE IV Last administered on 03/25/17 15:43; Start 03/25/17 at 16:00; Stop 03/25/17 at 16:01; Status DC Adenosine (Adenocard) 6 mg 1X ONCE IV Last administered on 03/25/17 15:42; Start 03/25/17 at 16:15; Stop 03/25/17 at 16:16; Status DC Adenosine (Adenocard) 12 mg 1X ONCE IV Last administered on 03/25/17 15:48; Start 03/25/17 at 16:00; Stop 03/25/17 at 16:01; Status DC Midazolam HCl (Versed) 5 mg 1X ONCE IV Last administered on 03/25/17 15:48; Start 03/25/17 at 16:00; Stop 03/25/17 at 16:01; Status DC Pantoprazole Sodium (Protonix Vial) 40 mg BID IVP Last administered on 00:11; Start 03/25/17 at 21:00 Sodium Chloride 1,000 ml @ 1,000 mls/hr Q1H PRN IV hypotension; Start at 16:30; Stop 03/25/17 at 22:29; Status DC Sodium Chloride (Normal Saline Flush) 10 ml 1X PRN PRN IV AP catheter pack; Start 03/25/17 at 16:30; Stop 03/26/17 at 08:54; Status DC Sodium Chloride (Normal Saline Flush) 10 ml 1X PRN PRN IV INSOLVENCY PRACTITIONER catheter pack; Start 03/25/17 at 16:30; Stop 03/26/17 at 08:54; Status DC Sodium Chloride 1,000 ml @ 400 mls/hr Q2H30M PRN IV PATENCY; Start 03/25/17 at 16:30; Stop 03/26/17 at 04:29; Status DC Info (PHARMACY MONITORING -- do not chart) 1 each PRN DAILY PRN MC SEE COMMENTS ; Start 03/25/17 at 16:30; Status Cancel Info (PHARMACY MONITORING -- do not chart) 1 each PRN DAILY PRN MC SEE COMMENTS ; Start 03/25/17 at 16:30; Status UNV Acetaminophen (Tylenol) 650 mg PRN Q6HRS PRN PEG MILD PAIN / TEMP Last administered on 03/25/17 18:44; Start 03/25/17 at 18:30 Fentanyl Citrate 30 ml @ 0 mls/hr CONT PRN PRN IV PROTOCOL; Start 03/25/17 at 19:15 Sodium Chloride 1,000 ml @ 1,000 mls/hr Q1H PRN IV hypotension; Start at 08:46; Stop 03/26/17 at 14:45; Status DC Sodium Chloride (Normal Saline Flush) 10 ml 1X PRN PRN IV AP catheter pack; Start 03/26/17 at 09:00; Stop 03/27/17 at 08:59; Status DC Sodium Chloride (Normal Saline Flush) 10 ml 1X PRN PRN IV INSOLVENCY PRACTITIONER catheter pack; Start 03/26/17 at 09:00; Stop 03/27/17 at 08:59; Status DC Sodium Chloride 1,000 ml @ 400 mls/hr Q2H30M PRN IV PATENCY; Start 03/26/17 at 08:46; Stop 03/26/17 at 20:45; Status DC Info (PHARMACY MONITORING -- do not chart) 1 each PRN DAILY PRN MC SEE COMMENTS ; Start 03/26/17 at 09:00; Status UNV Info (PHARMACY MONITORING -- do not chart) 1 each PRN DAILY PRN MC SEE COMMENTS ; Start 03/26/17 at 09:00; Status UNV Levothyroxine Sodium 15 mcg/ Sodium Chloride 5 ml @ 100 mls/hr DAILY IVP Last administered on 03/30/17 08:14; Start 03/26/17 at 14:00 Chlorhexidine Gluconate (Peridex) 15 ml BID MM Last administered on 03/27/17 07:45; Start 03/26/17 at 21:00; Stop 03/27/17 at 20:57; Status DC Heparin Sodium (Porcine) (Heparin Sq) 5,000 unit BID SQ Last administered on t 22:46; Start 03/26/17 at 21:00 Heparin Sodium (Porcine) (Heparin Sodium) 10,000 unit STK-MED ONCE .ROUTE ; Start 03/27/17 at 08:15; Stop 03/27/17 at 08:16; Status DC Lidocaine/ Epinephrine (Xylocaine 1%-Epi 1:100,000) 20 ml STK-MED ONCE .ROUTE ; Start 03/27/17 at 08:15; Stop 03/27/17 at 08:16; Status DC Heparin Sodium/ Sodium Chloride 500 ml @ As Directed STK-MED ONCE .ROUTE ; Start 03/27/17 at 08:15; Stop 03/27/17 at 08:16; Status DC Heparin Sodium/ Sodium Chloride 1,000 unit 1X ONCE IART Last administered on 03/27/17 10:53; Start 03/27/17 at 10:30; Stop 03/27/17 at 10:45; Status DC Lidocaine/ Epinephrine (Xylocaine 1%-Epi 1:100,000) 20 ml 1X ONCE INJ Last administered on 03/27/17 10:53; Start 03/27/17 at 10:30; Stop 03/27/17 at 10 :45; Status DC Heparin Sodium (Porcine) (Heparin Sodium) 3,800 unit 1X ONCE INT CAT Last administered on 03/27/17 10:54; Start 03/27/17 at 10:30; Stop 03/27/17 at 10 :45; Status DC Darbepoetin Jean (Aranesp) 60 mcg [id number] SQ Last administered on 03/27/17 22:38; Start 03/27/17 at 21:00 Info 1 each PRN DAILY PRN MC SEE COMMENTS Last administered on 03/29/17 16:23 ; Start 03/27/17 at 13:45 Sodium Chloride 90 meq/Potassium Chloride 50 meq/ Potassium Phosphate 13.6 mmol/ Magnesium Sulfate 10 meq/ Calcium Gluconate 10 meq/ Multivitamins 10 ml/Chromium / Copper/Manganese/ Seleni/Zn 1 ml/ Total Parenteral Nutrition/Amino Acids/ Dextrose/ Fat Emulsion Intravenous 1,512 ml @ 63 mls/hr TPN CONT IV Last administered on 03/27/17 22:37; Start 03/27/17 at 22:00; Stop 03/28/17 at 21 :59; Status DC Adenosine (Adenocard) 18 mg STK-MED ONCE IV ; Start 03/26/17 at 12:00; Stop at 14:50; Status DC Midazolam HCl (Versed) 5 mg STK-MED ONCE .ROUTE ; Start 03/26/17 at 12:00; Stop 03/27/17 at 14:50; Status DC Sodium Bicarbonate 150 meq STK-MED ONCE .ROUTE ; Start 03/26/17 at 12:00; Stop 03/27/17 at 14:50; Status DC Morphine Sulfate 2 mg PRN Q2HR PRN IV PAIN Last administered on 03/29/17 15: 22; Start 03/27/17 at 15:30 Midazolam HCl (Versed) 5 mg STK-MED ONCE .ROUTE ; Start 03/25/17 at 12:00; Stop 03/27/17 at 15:30; Status DC Vecuronium Teague (Norcuron Bolus) 10 mg STK-MED ONCE IV ; Start 03/25/17 at 12:00; Stop 03/27/17 at 15:30; Status DC Albumin Human 200 ml @ 200 mls/hr 1X PRN PRN IV Hypotension; Start 03/27/17 at 19:30; Stop 03/28/17 at 01:29; Status DC Sodium Chloride (Normal Saline Flush) 10 ml 1X PRN PRN IV AP catheter pack; Start 03/27/17 at 19:30; Stop 03/28/17 at 19:29; Status DC Sodium Chloride (Normal Saline Flush) 10 ml 1X PRN PRN IV INSOLVENCY PRACTITIONER catheter pack; Start 03/27/17 at 19:30; Stop 03/28/17 at 19:29; Status DC Info (PHARMACY MONITORING -- do not chart) 1 each PRN DAILY PRN MC SEE COMMENTS ; Start 03/27/17 at 19:30; Status UNV Info (PHARMACY MONITORING -- do not chart) 1 each PRN DAILY PRN MC SEE COMMENTS ; Start 03/27/17 at 19:30; Status UNV Sodium Chloride 90 meq/Potassium Chloride 50 meq/ Potassium Phosphate 13.6 mmol/ Magnesium Sulfate 10 meq/ Calcium Gluconate 5 meq/ Multivitamins 10 ml/Chromium / Copper/Manganese/ Seleni/Zn 1 ml/ Total Parenteral Nutrition/Amino Acids/ Dextrose/ Fat Emulsion Intravenous 1,512 ml @ 63 mls/hr TPN CONT IV Last administered on 03/28/17t 22:10; Start 03/28/17 at 22:00; Stop 03/29/17 at 21 :59; Status DC Levetiracetam (Keppra) 250 mg BID PO Last administered on 03/29/17 22:45; Start 03/29/17 at 21:00; Stop 03/31/17 at 09:01 Potassium Chloride 50 meq/ Potassium Phosphate 13.6 mmol/Magnesium Sulfate 10 meq/ Calcium Gluconate 5 meq/ Multivitamins 10 ml/Chromium/ Copper/Manganese/ Seleni/Zn 1 ml/ Total Parenteral Nutrition/Amino Acids/Dextrose/ Fat Emulsion Intravenous 1,250 ml @ 52.083 mls/ hr TPN CONT IV Last administered on t 05:19; Start 03/29/17 at 22:00; Stop 03/30/17 at 21:59 Sodium Chloride 1,000 ml @ 1,000 mls/hr Q1H PRN IV hypotension; Start at 14:00; Stop 03/29/17 at 19:59; Status DC Albumin Human 200 ml @ 200 mls/hr 1X PRN PRN IV Hypotension; Start 03/29/17 at 14:00; Stop 03/29/17 at 19:59; Status DC Diphenhydramine HCl (Benadryl) 25 mg 1X PRN PRN IV ITCHING; Start 03/29/17 at 14:00; Stop 03/30/17 at 13:59 Diphenhydramine HCl (Benadryl) 25 mg 1X PRN PRN IV ITCHING; Start 03/29/17 at 14:00; Stop 03/30/17 at 13:59 Sodium Chloride (Normal Saline Flush) 10 ml 1X PRN PRN IV AP catheter pack; Start 03/29/17 at 14:00; Stop 03/30/17 at 13:59 Sodium Chloride (Normal Saline Flush) 10 ml 1X PRN PRN IV INSOLVENCY PRACTITIONER catheter pack; Start 03/29/17 at 14:00; Stop 03/30/17 at 13:59 Info (PHARMACY MONITORING -- do not chart) 1 each PRN DAILY PRN MC SEE COMMENTS ; Start 03/29/17 at 14:00 Furosemide (Lasix) 40 mg [id number] IVP ; Start 03/29/17 at 14:30; Status Cancel Furosemide (Lasix) 40 mg BID92 IVP Last administered on 03/29/17t 15:28; Start 03/29/17 at 14:15; Stop 03/31/17 at 09:01 Digoxin (Lanoxin) 500 mcg 1X ONCE IV Last administered on 03/29/17t 14:44; Start 03/29/17 at 14:45; Stop 03/29/17 at 14:46; Status DC Albumin Human 500 ml @ 125 mls/hr 1X ONCE IV ; Start 03/29/17 at 14:45; Stop 03/29/17 at 18:44; Status DC Dobutamine HCl/ Dextrose 250 ml @ 0 mls/hr CONT PRN IV SEE I/O RECORD Last administered on 03/29/17t 18:10; Start 03/29/17 at 17:45 Albuterol/ Ipratropium (Duoneb) 3 ml RTQID NEB Last administered on 03/30/17t 08:21; Start 03/29/17 at 20:00 Albuterol Sulfate (Ventolin Neb Soln) 2.5 mg PRN Q4HRS PRN NEB SHORTNESS OF BREATH; Start 03/29/17 at 18:45 Sodium Chloride 1,000 ml @ 1,000 mls/hr Q1H PRN IV hypotension; Start at 08:10; Stop 03/30/17 at 14:09 Diphenhydramine HCl (Benadryl) 25 mg 1X PRN PRN IV ITCHING; Start 03/30/17 at 08:15; Stop 03/31/17 at 08:14 Diphenhydramine HCl (Benadryl) 25 mg 1X PRN PRN IV ITCHING; Start 03/30/17 at 08:15; Stop 03/31/17 at 08:14 Sodium Chloride 1,000 ml @ 400 mls/hr Q2H30M PRN IV PATENCY; Start 03/30/17 at 08:10; Stop 03/30/17 at 20:09 Info (PHARMACY MONITORING -- do not chart) 1 each PRN DAILY PRN MC SEE COMMENTS ; Start 03/30/17 at 08:15; Stop 03/30/17 at 08:25; Status DC Active Scripts Active Reported Multivitamins (Multivitamin) 1 Each Tablet 1 Tab PO DAILY Omeprazole 20 Mg Capsule. 1 Cap PO DAILY Vitals/I & O Vital Sign - Last 24 Hours 03/29/17 03/29/17 03/29/17 03/29/17 10:56 14:44 15:00 15:00 Temp 97.6 98.4 97.6 98.4 Pulse 119 134 130 Resp 24 54 B/P (MAP) 141/97 (112) 141/97 163/109 (127) Pulse Ox 92 91 O2 Delivery NonRebreather Mask Bi-pap BiPAP/CPAP O2 Flow Rate 40.0 03/29/17 03/29/17 03/29/17 03/29/17 15:15 15:22 15:30 15:30 Pulse 132 134 Resp 46 56 42 B/P (MAP) 184/108 (133) 174/105 (128) Pulse Ox 93 92 94 93 O2 Delivery BiPAP/CPAP BiPAP/CPAP BiPAP/CPAP BiPAP/CPAP 03/29/17 03/29/17 03/29/17 03/29/17 15:45 15:55 16:00 17:00 Pulse 116 112 Resp 41 36 41 B/P (MAP) 151/93 (112) 148/87 (107) Pulse Ox 97 100 99 O2 Delivery BiPAP/CPAP BiPAP/CPAP BiPAP/CPAP Bi-pap 03/29/17 03/29/17 03/29/17 03/29/17 17:00 17:09 18:00 19:47 Temp 100.0 100.0 Pulse 110 96 Resp 36 33 B/P (MAP) 148/80 (102) 137/84 (101) Pulse Ox 99 100 100 100 O2 Delivery BiPAP/CPAP BiPAP/CPAP BiPAP/CPAP BiPAP/CPAP 03/29/17 03/29/17 03/29/17 03/29/17 20:00 20:00 21:00 22:00 Temp 99.9 99.9 Pulse 102 102 96 Resp 24 25 27 B/P (MAP) 132/90 (104) 119/82 (94) 115/75 (88) Pulse Ox 99 98 97 O2 Delivery Bi-pap BiPAP/CPAP BiPAP/CPAP BiPAP/CPAP 03/30/17 03/30/17 03/30/17 03/30/17 00:00 00:00 00:07 01:00 Temp 99.9 99.9 Pulse 106 99 Resp 22 24 B/P (MAP) 122/79 (93) 128/79 (95) Pulse Ox 97 98 97 O2 Delivery Bi-pap BiPAP/CPAP BiPAP/CPAP BiPAP/CPAP 03/30/17 03/30/17 03/30/17 03/30/17 02:00 02:26 03:00 03:58 Pulse 93 90 Resp 21 20 B/P (MAP) 125/78 (94) 114/80 (91) Pulse Ox 97 97 97 98 O2 Delivery BiPAP/CPAP BiPAP/CPAP BiPAP/CPAP BiPAP/CPAP 03/30/17 03/30/17 03/30/1703/30/17 04:00 04:00 05:00 05:34 Temp 99.1 99.1 Pulse 98 96 Resp 20 19 B/P (MAP) 118/77 (91) 121/80 (94) Pulse Ox 97 96 98 O2 Delivery Bi-pap BiPAP/CPAP BiPAP/CPAP BiPAP/CPAP 03/30/17 03/30/17 03/30/17 03/30/17 06:00 07:00 08:00 08:00 Temp 98.3 98.3 Pulse 100 94 96 Resp 22 21 21 B/P (MAP) 130/86 (101) 132/84 (100) 118/83 (95) Pulse Ox 98 95 95 O2 Delivery Nasal Cannula Nasal Cannula Nasal Cannula Nasal Cannula O2 Flow Rate 3.0 2.0 2.0 2.0 03/30/17 03/30/17 08:23 09:00 Pulse 98 Resp 20 B/P (MAP) 136/91 (106) Pulse Ox 96 96 O2 Delivery Nasal Cannula Nasal Cannula O2 Flow Rate 2.0 2.0 Intake and Output 03/30/17 03/30/17 03/31/17 15:00 23:00 07:00 Intake Total 30 ml Output Total 225 ml Balance -195 ml DANN ROQUE MD Mar 30, 2017 10:25
--- NOTE | 2017-03-30 10:41 | PDOC ---
SURGICAL PROGRESS NOTE Subjective reports doing ok pain managed Vital Signs Vital Signs Date Time Temp Pulse Resp B/P (MAP) Pulse Ox O2 Delivery O2 Flow Rate FiO2 03/30/17 09:00 98 20 136/91 (106) 96 Nasal Cannula 2.0 03/30/17 07:00 98.3 98.3 I&O Intake and Output 03/31/17 07:00 Intake Total 30 ml Output Total 225 ml Balance -195 ml Intake Oral 30 ml Output Urine Total 225 ml General: Cooperative, No acute distress Abdomen: Soft Labs Laboratory Tests Test 03/29/17 04:00 03/29/17 05:43 03/29/17 10:30 03/29/17 11:59 White Blood Count 11.4 x10^3/uL (4.0-11.0) Red Blood Count 3.27 x10^6/uL (3.50-5.40) Hemoglobin 9.7 g/dL (12.0-15.5) Hematocrit 29.3 % (36.0-47.0) Mean Corpuscular Volume 90 fL (79-100) Mean Corpuscular Hemoglobin 30 pg (25-35) Mean Corpuscular Hemoglobin Concent 33 g/dL (31-37) Red Cell Distribution Width 15.9 % (11.5-14.5) Platelet Count 335 x10^3/uL (140-400) Neutrophils (%) (Auto) 78 % (31-73) Lymphocytes (%) (Auto) 14 % (24-48) Monocytes (%) (Auto) 6 % (0-9) Eosinophils (%) (Auto) 1 % (0-3) Basophils (%) (Auto) 1 % (0-3) Neutrophils # (Auto) 8.9 x10^3uL (1.8-7.7) Lymphocytes # (Auto) 1.6 x10^3/uL (1.0-4.8) Monocytes # (Auto) 0.7 x10^3/uL (0.0-1.1) Eosinophils # (Auto) 0.2 x10^3/uL (0.0-0.7) Basophils # (Auto) 0.1 x10^3/uL (0.0-0.2) Sodium Level 150 mmol/L (136-145) Potassium Level 4.0 mmol/L (3.5-5.1) Chloride Level 110 mmol/L (98-107) Carbon Dioxide Level 31 mmol/L (21-32) Anion Gap 9 (6-14) Blood Urea Nitrogen 26 mg/dL (7-20) Creatinine 3.3 mg/dL (0.6-1.0) Estimated GFR (Cockcroft-Gault) 16.6 Glucose Level 118 mg/dL (70-99) Calcium Level 8.7 mg/dL (8.5-10.1) Phosphorus Level 4.3 mg/dL (2.6-4.7) Magnesium Level 2.1 mg/dL (1.8-2.4) Triglycerides Level 174 mg/dL (0-150) Glucose (Fingerstick) 130 mg/dL (70-99) 132 mg/dL (70-99) O2 Saturation 93 % (92-99) Arterial Blood pH 7.42 (7.35-7.45) Arterial Blood pCO2 at Patient Temp 41 mmHg (35-46) Arterial Blood pO2 at Patient Temp 71 mmHg (85-108) Arterial Blood HCO3 26 mmol/L (21-28) Arterial Blood Base Excess 2 mmol/L (-3-3) FiO2 35 Test 03/29/17 15:04 03/29/17 19:09 03/30/17 04:55 03/30/17 08:00 O2 Saturation 92 % (92-99) 96 % (92-99) 96 % (92-99) Arterial Blood pH 7.38 (7.35-7.45) 7.49 (7.35-7.45) 7.49 (7.35-7.45) Arterial Blood pCO2 at Patient Temp 41 mmHg (35-46) 36 mmHg (35-46) 41 mmHg (35-46) Arterial Blood pO2 at Patient Temp 72 mmHg (85-108) 83 mmHg (85-108) 83 mmHg (85-108) Arterial Blood HCO3 24 mmol/L (21-28) 26 mmol/L (21-28) 30 mmol/L (21-28) Arterial Blood Base Excess -1 mmol/L (-3-3) 3 mmol/L (-3-3) 6 mmol/L (-3-3) FiO2 35 35 28 White Blood Count 10.8 x10^3/uL (4.0-11.0) Red Blood Count 3.20 x10^6/uL (3.50-5.40) Hemoglobin 9.8 g/dL (12.0-15.5) Hematocrit 28.7 % (36.0-47.0) Mean Corpuscular Volume 90 fL (79-100) Mean Corpuscular Hemoglobin 31 pg (25-35) Mean Corpuscular Hemoglobin Concent 34 g/dL (31-37) Red Cell Distribution Width 16.0 % (11.5-14.5) Platelet Count 296 x10^3/uL (140-400) Neutrophils (%) (Auto) 67 % (31-73) Lymphocytes (%) (Auto) 20 % (24-48) Monocytes (%) (Auto) 7 % (0-9) Eosinophils (%) (Auto) 4 % (0-3) Basophils (%) (Auto) 1 % (0-3) Neutrophils # (Auto) 7.3 x10^3uL (1.8-7.7) Lymphocytes # (Auto) 2.2 x10^3/uL (1.0-4.8) Monocytes # (Auto) 0.8 x10^3/uL (0.0-1.1) Eosinophils # (Auto) 0.4 x10^3/uL (0.0-0.7) Basophils # (Auto) 0.1 x10^3/uL (0.0-0.2) Sodium Level 146 mmol/L (136-145) Potassium Level 3.5 mmol/L (3.5-5.1) Chloride Level 105 mmol/L (98-107) Carbon Dioxide Level 34 mmol/L (21-32) Anion Gap 7 (6-14) Blood Urea Nitrogen 20 mg/dL (7-20) Creatinine 2.6 mg/dL (0.6-1.0) Estimated GFR (Cockcroft-Gault) 21.9 Glucose Level 90 mg/dL (70-99) Calcium Level 8.6 mg/dL (8.5-10.1) Phosphorus Level 4.5 mg/dL (2.6-4.7) Magnesium Level 1.9 mg/dL (1.8-2.4) Laboratory Tests Test 03/29/17 11:59 03/29/17 15:04 03/29/17 19:09 03/30/17 04:55 Glucose (Fingerstick) 132 mg/dL (70-99) O2 Saturation 92 % (92-99) 96 % (92-99) Arterial Blood pH 7.38 (7.35-7.45) 7.49 (7.35-7.45) Arterial Blood pCO2 at Patient Temp 41 mmHg (35-46) 36 mmHg (35-46) Arterial Blood pO2 at Patient Temp 72 mmHg (85-108) 83 mmHg (85-108) Arterial Blood HCO3 24 mmol/L (21-28) 26 mmol/L (21-28) Arterial Blood Base Excess -1 mmol/L (-3-3) 3 mmol/L (-3-3) FiO2 35 35 White Blood Count 10.8 x10^3/uL (4.0-11.0) Red Blood Count 3.20 x10^6/uL (3.50-5.40) Hemoglobin 9.8 g/dL (12.0-15.5) Hematocrit 28.7 % (36.0-47.0) Mean Corpuscular Volume 90 fL (79-100) Mean Corpuscular Hemoglobin 31 pg (25-35) Mean Corpuscular Hemoglobin Concent 34 g/dL (31-37) Red Cell Distribution Width 16.0 % (11.5-14.5) Platelet Count 296 x10^3/uL (140-400) Neutrophils (%) (Auto) 67 % (31-73) Lymphocytes (%) (Auto) 20 % (24-48) Monocytes (%) (Auto) 7 % (0-9) Eosinophils (%) (Auto) 4 % (0-3) Basophils (%) (Auto) 1 % (0-3) Neutrophils # (Auto) 7.3 x10^3uL (1.8-7.7) Lymphocytes # (Auto) 2.2 x10^3/uL (1.0-4.8) Monocytes # (Auto) 0.8 x10^3/uL (0.0-1.1) Eosinophils # (Auto) 0.4 x10^3/uL (0.0-0.7) Basophils # (Auto) 0.1 x10^3/uL (0.0-0.2) Sodium Level 146 mmol/L (136-145) Potassium Level 3.5 mmol/L (3.5-5.1) Chloride Level 105 mmol/L (98-107) Carbon Dioxide Level 34 mmol/L (21-32) Anion Gap 7 (6-14) Blood Urea Nitrogen 20 mg/dL (7-20) Creatinine 2.6 mg/dL (0.6-1.0) Estimated GFR (Cockcroft-Gault) 21.9 Glucose Level 90 mg/dL (70-99) Calcium Level 8.6 mg/dL (8.5-10.1) Phosphorus Level 4.5 mg/dL (2.6-4.7) Magnesium Level 1.9 mg/dL (1.8-2.4) Test 03/30/17 08:00 O2 Saturation 96 % (92-99) Arterial Blood pH 7.49 (7.35-7.45) Arterial Blood pCO2 at Patient Temp 41 mmHg (35-46) Arterial Blood pO2 at Patient Temp 83 mmHg (85-108) Arterial Blood HCO3 30 mmol/L (21-28) Arterial Blood Base Excess 6 mmol/L (-3-3) FiO2 28 Assessment/Plan supportive care Problems: JORGE DEVI APRN Mar 30, 2017 10:41
[2017-03-30] MEDS: TPN PER PHARMACY MC PRN ×2 (11:26→11:40)
[2017-03-30] MEDS: DOCUSATE SODIUM 100 MG CAPSULE. PO SCH (12:57)
[2017-03-30] MEDS: MULTIVITAMIN with MINERAL TABLET. PO SCH (12:57)
[2017-03-30] MEDS: levETIRAcetam 250 MG TABLET PO SCH (12:57)
[2017-03-30] MEDS: FUROSEMIDE 40 MG/4 ML VIAL. IVP SCH (12:58)
[2017-03-30] MEDS: HEPARIN PF for SUB-Q USE 5,000 UNIT/0.5 ML VIAL. SQ SCH (13:06)
[2017-03-30] MEDS ORDERED: DOCU-109 PO (14:58)
[2017-03-30] MEDS ORDERED: MULT1TAB52 PO (14:59)
[2017-03-30] MEDS ORDERED: LEVE500T56 PO (15:00)
--- NOTE | 2017-03-30 15:12 | PDOC ---
PULMONARY PROGRESS NOTES Subjective [id number] MORE RESP DISTRESS YESTERDAY TRANSFER TO ICU NOW OFF DOBUTAMINE AND 02 Vitals Vital Signs Date Time Temp Pulse Resp B/P (MAP) Pulse Ox O2 Delivery O2 Flow Rate FiO2 03/30/17 14:00 102 22 113/74 (87) 96 Room Air 03/30/17 12:34 2.0 03/30/17 12:00 98.5 98.5 ROS: No Nausea, No Chest Pain, No Abdominal Pain, No Increase Cough General: Alert Lungs: Clear Cardiovascular: S1, S2 Abdomen: Soft Neuro Exam: Alert Extremities: No Edema Skin: Warm Labs Laboratory Tests Test 03/29/17 04:00 03/29/17 05:43 03/29/17 10:30 03/29/17 11:59 White Blood Count 11.4 x10^3/uL (4.0-11.0) Red Blood Count 3.27 x10^6/uL (3.50-5.40) Hemoglobin 9.7 g/dL (12.0-15.5) Hematocrit 29.3 % (36.0-47.0) Mean Corpuscular Volume 90 fL (79-100) Mean Corpuscular Hemoglobin 30 pg (25-35) Mean Corpuscular Hemoglobin Concent 33 g/dL (31-37) Red Cell Distribution Width 15.9 % (11.5-14.5) Platelet Count 335 x10^3/uL (140-400) Neutrophils (%) (Auto) 78 % (31-73) Lymphocytes (%) (Auto) 14 % (24-48) Monocytes (%) (Auto) 6 % (0-9) Eosinophils (%) (Auto) 1 % (0-3) Basophils (%) (Auto) 1 % (0-3) Neutrophils # (Auto) 8.9 x10^3uL (1.8-7.7) Lymphocytes # (Auto) 1.6 x10^3/uL (1.0-4.8) Monocytes # (Auto) 0.7 x10^3/uL (0.0-1.1) Eosinophils # (Auto) 0.2 x10^3/uL (0.0-0.7) Basophils # (Auto) 0.1 x10^3/uL (0.0-0.2) Sodium Level 150 mmol/L (136-145) Potassium Level 4.0 mmol/L (3.5-5.1) Chloride Level 110 mmol/L (98-107) Carbon Dioxide Level 31 mmol/L (21-32) Anion Gap 9 (6-14) Blood Urea Nitrogen 26 mg/dL (7-20) Creatinine 3.3 mg/dL (0.6-1.0) Estimated GFR (Cockcroft-Gault) 16.6 Glucose Level 118 mg/dL (70-99) Calcium Level 8.7 mg/dL (8.5-10.1) Phosphorus Level 4.3 mg/dL (2.6-4.7) Magnesium Level 2.1 mg/dL (1.8-2.4) Triglycerides Level 174 mg/dL (0-150) Glucose (Fingerstick) 130 mg/dL (70-99) 132 mg/dL (70-99) O2 Saturation 93 % (92-99) Arterial Blood pH 7.42 (7.35-7.45) Arterial Blood pCO2 at Patient Temp 41 mmHg (35-46) Arterial Blood pO2 at Patient Temp 71 mmHg (85-108) Arterial Blood HCO3 26 mmol/L (21-28) Arterial Blood Base Excess 2 mmol/L (-3-3) FiO2 35 Test 03/29/17 15:04 03/29/17 19:09 03/30/17 04:55 03/30/17 08:00 O2 Saturation 92 % (92-99) 96 % (92-99) 96 % (92-99) Arterial Blood pH 7.38 (7.35-7.45) 7.49 (7.35-7.45) 7.49 (7.35-7.45) Arterial Blood pCO2 at Patient Temp 41 mmHg (35-46) 36 mmHg (35-46) 41 mmHg (35-46) Arterial Blood pO2 at Patient Temp 72 mmHg (85-108) 83 mmHg (85-108) 83 mmHg (85-108) Arterial Blood HCO3 24 mmol/L (21-28) 26 mmol/L (21-28) 30 mmol/L (21-28) Arterial Blood Base Excess -1 mmol/L (-3-3) 3 mmol/L (-3-3) 6 mmol/L (-3-3) FiO2 35 35 28 White Blood Count 10.8 x10^3/uL (4.0-11.0) Red Blood Count 3.20 x10^6/uL (3.50-5.40) Hemoglobin 9.8 g/dL (12.0-15.5) Hematocrit 28.7 % (36.0-47.0) Mean Corpuscular Volume 90 fL (79-100) Mean Corpuscular Hemoglobin 31 pg (25-35) Mean Corpuscular Hemoglobin Concent 34 g/dL (31-37) Red Cell Distribution Width 16.0 % (11.5-14.5) Platelet Count 296 x10^3/uL (140-400) Neutrophils (%) (Auto) 67 % (31-73) Lymphocytes (%) (Auto) 20 % (24-48) Monocytes (%) (Auto) 7 % (0-9) Eosinophils (%) (Auto) 4 % (0-3) Basophils (%) (Auto) 1 % (0-3) Neutrophils # (Auto) 7.3 x10^3uL (1.8-7.7) Lymphocytes # (Auto) 2.2 x10^3/uL (1.0-4.8) Monocytes # (Auto) 0.8 x10^3/uL (0.0-1.1) Eosinophils # (Auto) 0.4 x10^3/uL (0.0-0.7) Basophils # (Auto) 0.1 x10^3/uL (0.0-0.2) Sodium Level 146 mmol/L (136-145) Potassium Level 3.5 mmol/L (3.5-5.1) Chloride Level 105 mmol/L (98-107) Carbon Dioxide Level 34 mmol/L (21-32) Anion Gap 7 (6-14) Blood Urea Nitrogen 20 mg/dL (7-20) Creatinine 2.6 mg/dL (0.6-1.0) Estimated GFR (Cockcroft-Gault) 21.9 Glucose Level 90 mg/dL (70-99) Calcium Level 8.6 mg/dL (8.5-10.1) Phosphorus Level 4.5 mg/dL (2.6-4.7) Magnesium Level 1.9 mg/dL (1.8-2.4) Laboratory Tests Test 03/29/17 19:09 03/30/17 04:55 03/30/17 08:00 O2 Saturation 96 % (92-99) 96 % (92-99) Arterial Blood pH 7.49 (7.35-7.45) 7.49 (7.35-7.45) Arterial Blood pCO2 at Patient Temp 36 mmHg (35-46) 41 mmHg (35-46) Arterial Blood pO2 at Patient Temp 83 mmHg (85-108) 83 mmHg (85-108) Arterial Blood HCO3 26 mmol/L (21-28) 30 mmol/L (21-28) Arterial Blood Base Excess 3 mmol/L (-3-3) 6 mmol/L (-3-3) FiO2 35 28 White Blood Count 10.8 x10^3/uL (4.0-11.0) Red Blood Count 3.20 x10^6/uL (3.50-5.40) Hemoglobin 9.8 g/dL (12.0-15.5) Hematocrit 28.7 % (36.0-47.0) Mean Corpuscular Volume 90 fL (79-100) Mean Corpuscular Hemoglobin 31 pg (25-35) Mean Corpuscular Hemoglobin Concent 34 g/dL (31-37) Red Cell Distribution Width 16.0 % (11.5-14.5) Platelet Count 296 x10^3/uL (140-400) Neutrophils (%) (Auto) 67 % (31-73) Lymphocytes (%) (Auto) 20 % (24-48) Monocytes (%) (Auto) 7 % (0-9) Eosinophils (%) (Auto) 4 % (0-3) Basophils (%) (Auto) 1 % (0-3) Neutrophils # (Auto) 7.3 x10^3uL (1.8-7.7) Lymphocytes # (Auto) 2.2 x10^3/uL (1.0-4.8) Monocytes # (Auto) 0.8 x10^3/uL (0.0-1.1) Eosinophils # (Auto) 0.4 x10^3/uL (0.0-0.7) Basophils # (Auto) 0.1 x10^3/uL (0.0-0.2) Sodium Level 146 mmol/L (136-145) Potassium Level 3.5 mmol/L (3.5-5.1) Chloride Level 105 mmol/L (98-107) Carbon Dioxide Level 34 mmol/L (21-32) Anion Gap 7 (6-14) Blood Urea Nitrogen 20 mg/dL (7-20) Creatinine 2.6 mg/dL (0.6-1.0) Estimated GFR (Cockcroft-Gault) 21.9 Glucose Level 90 mg/dL (70-99) Calcium Level 8.6 mg/dL (8.5-10.1) Phosphorus Level 4.5 mg/dL (2.6-4.7) Magnesium Level 1.9 mg/dL (1.8-2.4) Medications Active Scripts Medications Dose Route/Sig Max Daily Dose Days Date Category Multivitamins (Multivitamin) 1 Each Tablet 1 Tab PO DAILY 03/15/17 Reported Omeprazole 20 Mg Capsule. 1 Cap PO DAILY 03/15/17 Reported Impression . 1. Acute respiratory failure secondary to /CM/ACUTE RENAL FAILURE WITH VOLUME OVERLOAD 2. Seizure? etiology. 3. Appendicitis status post appendectomy on March 15. 4. Gastric sleeve surgery in February 2017. 5. Acute kidney injury. 6. Encephalopathy. 7. Obesity, probable obstructive sleep apnea-hypopnea syndrome. 8. Gastroesophageal reflux disease. 9. Possible aspiration pneumonia 10. Seizures Plan . PT DETERIATION YESTEDAY WAS DUE TO FLUID OVERLOAD, HD GREATLY IMPROVED, PT OFF 02 AN DOBUTAMINE, SPOKE WITH FAMILY, OK TO TRANSFER EXTUBATED 03/27, AT THAT TIME INTUBATION WAS A CONSEQUENCE OF PROTECTING AIRWAY , PT WAS SEIZING FOLLOW NEPHRO/CARD INPUT FOLLOW NEURO KAT ACOSTA MD Mar 30, 2017 15:12
[2017-03-30] MEDS ORDERED: [UNRECOGNIZED DRUG - OTHER] IV SCH ×9 (22:00)
[2017-03-30] MEDS ORDERED: TOTAL PARENTERAL NUTRITION IV SCH ×18 (22:00)
[2017-03-30] MEDS ORDERED: DEXTROSE 70% IV SCH ×18 (22:00)
[2017-03-30] MEDS ORDERED: AMINO ACIDS IV SCH ×18 (22:00)
[2017-03-30] MEDS ORDERED: [UNRECOGNIZED DRUG - OTHER] IV SCH ×9 (22:00)
== END 2017-03-30 17:15 | disposition short-term general hospital (02) | DRG 853 ==
LOC: 4 NORTH 13:54 → 1 WEST ICU 03-25 13:55 → 2 SOUTH 03-28 18:00 → 1 WEST ICU 03-29 15:01
PROVIDERS: ADMIT Internal Medicine; ATTEND Surgery
PROC: 5A1945Z Respiratory Ventilation, 24-96 Consecutive Hours (ICD-10-PCS; 2017-03-15)
PROC: 0BH17EZ Insertion of Endotracheal Airway into Trachea, Via Natural or Artificial Opening (ICD-10-PCS; 2017-03-15)
PROC: 0DTJ4ZZ Resection of Appendix, Percutaneous Endoscopic Approach (ICD-10-PCS; principal; 2017-03-15 14:00)
PROC: 0JH63XZ Insertion of Tunneled Vascular Access Device into Chest Subcutaneous Tissue and Fascia, Percutaneous Approach (ICD-10-PCS; 2017-03-26)
PROC: 02HV33Z Insertion of Infusion Device into Superior Vena Cava, Percutaneous Approach (ICD-10-PCS; 2017-03-26)
PROC: B548ZZA Ultrasonography of Superior Vena Cava, Guidance (ICD-10-PCS; 2017-03-26)
PROC: 05HD33Z Insertion of Infusion Device into Right Cephalic Vein, Percutaneous Approach (ICD-10-PCS; 2017-03-26)
PROC: 5A1D70Z Performance of Urinary Filtration, Intermittent, Less than 6 Hours Per Day (ICD-10-PCS; 2017-03-26)
DX: A41.9 Sepsis, unspecified organism (principal); K35.2 Acute appendicitis with generalized peritonitis; J96.00 Acute respiratory failure, unspecified whether with hypoxia or hypercapnia; N17.0 Acute kidney failure with tubular necrosis; J69.0 Pneumonitis due to inhalation of food and vomit; G93.41 Metabolic encephalopathy; E87.2 Acidosis; E66.01 Morbid (severe) obesity due to excess calories; I42.9 Cardiomyopathy, unspecified; E46 Unspecified protein-calorie malnutrition; Z68.42 Body mass index [BMI] 45.0-49.9, adult; J98.11 Atelectasis; I11.0 Hypertensive heart disease with heart failure; I50.9 Heart failure, unspecified; E11.65 Type 2 diabetes mellitus with hyperglycemia; E66.3 Overweight; D64.9 Anemia, unspecified; D75.89 Other specified diseases of blood and blood-forming organs; E03.9 Hypothyroidism, unspecified; E86.0 Dehydration; E87.5 Hyperkalemia; E87.6 Hypokalemia; G47.33 Obstructive sleep apnea (adult) (pediatric); K21.9 Gastro-esophageal reflux disease without esophagitis; R56.9 Unspecified convulsions; T50.8X5A Adverse effect of diagnostic agents, initial encounter; Z83.3 Family history of diabetes mellitus; Z98.84 Bariatric surgery status; Z99.2 Dependence on renal dialysis; Z90.49 Acquired absence of other specified parts of digestive tract; Z90.89 Acquired absence of other organs
CPT/HCPCS: 36415; 36558; 36569; 36600; 70450; 70551; 71010; 74176; 74177; 76770; 76937; 77001; 80048; 80053; 80069; 80307; 81001; 82550; 82805; 82962; 83036; 83605; 83735; 84100; 84439; 84443; 84478; 84481; 85007; 85025; 85610; 85730; 86701; 86705; 86706; 87040; 87324; 87340; 87341; 87641; 88304; 93306; 93970; 94002; 94003; 94640; 94660; A4215; A4314; C1750; C1892; C9113; J0153; J0330; J0610; J0694; J0780; J0881; J1100; J1160; J1170; J1250; J1450; J1644; J1650; J1940; J1953; J2060; J2250; J2270; J2405; J2543; J2704; J2765; J3010; J3370; J3475; J3490; J7030; J7040; J7120; J7620; Q9966; Q9967; 92610; G0479; J2001

== ENCOUNTER 2017-04-25 11:57 | Inpatient (IN) | payer BC ==
[~2017-04-25] VITALS: Ht 172.7 cm; Wt 128.4 kg
[~2017-04-25 11:57] MED LIST changes: -BUPIVACAINE-EPI 0.5%-1:200000 50 ML VIAL. ONE; +DOCU-109 PO; +LEVE500T56 PO; +MULT1TAB52 PO; +OMEP20CA9 PO
[2017-04-25 18:45] VITALS: BP 99/68
[2017-04-25 19:50] LABS: BASO # 0.1 x10^3/uL (0.0-0.2); BASO % 1 % (0-3); EOS % 4 % (0-3); HEMATOCRIT 33.3 % (36.0-47.0); HEMOGLOBIN 11.2 g/dL (12.0-15.5); LYMPH # 1.8 x10^3/uL (1.0-4.8); LYMPH % 19 % (24-48); MEAN CORPUSCULAR HEMOGLOBIN 30 pg (25-35); MEAN CORPUSCULAR HGB CONC 34 g/dL (31-37); MEAN CORPUSCULAR VOLUME 89 fL (79-100); MONO % 8 % (0-9); NEUT % 68 % (31-73); PLATELET COUNT 385 x10^3/uL (140-400); RED BLOOD COUNT 3.76 x10^6/uL (3.50-5.40); RED CELL DISTRIBUTION WIDTH 14.7 % (11.5-14.5); WHITE BLOOD COUNT 9.5 x10^3/uL (4.0-11.0)
[2017-04-25 20:00] VITALS: BP 99/68
[2017-04-25 20:03] LABS: INR 1.6 (0.8-1.1); PROTHROMBIN TIME PATIENT 18.1 SEC (11.7-14.0)
[2017-04-25 20:07] LABS: ALBUMIN 2.7 g/dL (3.4-5.0); ALBUMIN/GLOBULIN RATIO 0.5 (1.0-1.7); CALCIUM 9.7 mg/dL (8.5-10.1); CREATININE 0.9 mg/dL (0.6-1.0); GFR 74.6; POTASSIUM 3.5 mmol/L (3.5-5.1); TOTAL BILIRUBIN 0.3 mg/dL (0.2-1.0); TOTAL PROTEIN 8.1 g/dL (6.4-8.2)
[2017-04-25] MEDS ORDERED: OMEP20TA8 PO (20:38)
[2017-04-25] MEDS ORDERED: LEVE500T56 PO (20:38)
[2017-04-25] MEDS ORDERED: APIX5TAB PO (20:38)
[2017-04-25] MEDS ORDERED: OXYC-323 PO (20:38)
[2017-04-25] MEDS ORDERED: METO-269 PO (20:38)
[2017-04-25] MEDS: levETIRAcetam 250 MG TABLET PO SCH (21:14)
[2017-04-25] MEDS: oxyCODONE/APAP 5/325 1 TAB TABLET PO PRN (21:14)
[2017-04-25] MEDS: DOCUSATE SODIUM 100 MG CAPSULE. PO SCH (21:15)
[2017-04-25 23:00] VITALS: BP 103/66
[2017-04-26] VITALS (13 sets, daily range): BP systolic 97–152; BP diastolic 61–84
[2017-04-26] MEDS: oxyCODONE/APAP 5/325 1 TAB TABLET PO PRN ×3 (04:14→20:55)
[2017-04-26] MEDS: PANTOPRAZOLE 40 MG TABLET.DR. PO SCH ×2 (07:30→16:59)
[2017-04-26] MEDS: DOCUSATE SODIUM 100 MG CAPSULE. PO SCH ×2 (09:00→20:54)
[2017-04-26] MEDS: METOPROLOL SUCC 24HR ER 50 MG TAB.ER.24H. PO SCH ×2 (09:00→17:32)
[2017-04-26] MEDS: MULTIVITAMIN with MINERAL TABLET. PO SCH (09:00)
[2017-04-26] MEDS: levETIRAcetam 250 MG TABLET PO SCH ×2 (09:00→20:54)
[2017-04-26] MEDS ORDERED: LIDOCAINE 1% / SOD BICARB 8.4% 20 ML VIAL. IJ ONE ×2 (10:25→11:30)
[2017-04-26] MEDS ORDERED: IOHEXOL 300 MG/ML 100ML VIAL. ONE (10:25)
[2017-04-26] MEDS ORDERED: IOHEXOL 300 MG/ML 100ML VIAL. IART ONE (11:30)
[2017-04-26] MEDS ORDERED: fentaNYL PF VIAL 100 MCG/2 ML VIAL ONE ×3 (11:34→13:13)
[2017-04-26] MEDS ORDERED: MIDAZOLAM HCL/PF 2 MG/2 ML VIAL. ONE ×2 (11:35→12:06)
[2017-04-26] MEDS ORDERED: CONTRAST GIVEN MC PRN (11:45)
[2017-04-26] MEDS ORDERED: ALTEPLASE 2MG VIAL 10 MG in IV NORMAL SALINE 100ML 100 ML IV ONE (11:45)
[2017-04-26] MEDS ORDERED: fentaNYL PF VIAL 100 MCG/2 ML VIAL IV ONE (11:45)
[2017-04-26] MEDS ORDERED: MIDAZOLAM HCL/PF 2 MG/2 ML VIAL. IV ONE (11:45)
[2017-04-26] MEDS ORDERED: HEPARIN for IV BOLUS 10,000 UNIT/10 ML VIAL. ONE (11:48)
[2017-04-26] MEDS ORDERED: HEPARIN for IV BOLUS 10,000 UNIT/10 ML VIAL. IV ONE (12:15)
[2017-04-26] MEDS ORDERED: IOHEXOL 300 MG/ML 50 ML VIAL. ONE ×3 (12:34→13:15)
[2017-04-26] MEDS ORDERED: ANTI-COAG MONITOR BY PHARMACY. MC PRN (13:30)
[2017-04-26] MEDS ORDERED: IV NORMAL SALINE 1000ML BAG 1,000 ML IV ONE (13:30)
[2017-04-26] MEDS ORDERED: HEPARIN 25,000UTS/500ML PREMIX 500 ML IV ONE (14:00)
[2017-04-26] MEDS ORDERED: ALTEPLASE 25 MG in IV NORMAL SALINE 250ML 250 ML IV SCH (14:00)
[2017-04-26] MEDS ORDERED: oxyCODONE/APAP 5/325 1 TAB TABLET PO PRN (14:00)
--- NOTE | 2017-04-26 14:15 | HP ---
ADMIT DATE: 04/25/2017 HISTORY OF PRESENT ILLNESS: The patient is a 26-year-old female patient who was admitted on 04/20/2017 to [facility] with left lower extremity deep vein thrombosis for which she was started on Lovenox. She had V/Q scan which showed that she was positive for pulmonary emboli and she was switched to Eliquis 10 mg twice a day for 1 week and then 5 mg twice a day and was discharged home. I did speak with Dr. Catalan, the interventional radiologist about the thrombolytic therapy and given the clot load, he recommended that she is a candidate for treatment. The patient herself spoke with Dr. Catalan regarding this treatment and her questions and concerns were answered and she was able to express her wishes to proceed with the procedure and we admit her directly to [facility], switched her back to Lovenox to be treated with thrombolytic therapy. PAST MEDICAL HISTORY: Significant for morbid obesity for which she underwent gastric sleeve surgery successfully. She has also had appendicitis for which she underwent appendicectomy, acute renal failure and seizure with subsequent aspiration pneumonia and acute respiratory failure that was treated successfully. PAST SURGICAL HISTORY: Significant for gastric sleeve surgery and appendectomy. She apparently also had cholecystectomy and cyst removed from her esophagus. FAMILY HISTORY: She has 1 brother who was diagnosed with pulmonary embolism when he was 15 years old. Her father is alive at the age of 51 and had 3 myocardial infarctions, has had also PCI and stent deployment. Her mother is alive at age of 59 and has diabetes. SOCIAL HISTORY: She is , has 3 children. She has never smoked. Does not drink alcohol or use any recreational drugs. 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 REVIEW OF SYSTEMS: The patient denied any blurry vision, cataract, glaucoma or macular degeneration. Denied any earache, tinnitus or sensorineural deafness. Denied any nosebleed, stuffy nose or postnasal drip. Denied any sore throat, sore tongue, toothache, hoarseness of voice, difficulty swallowing. Denied any nausea, vomiting, diarrhea or constipation. Denied any hematemesis, melena or hematochezia. Denied any dysuria, frequency or hematuria. Denied any chest pain. Did complain of shortness of breath and pain and swelling of her left leg. PHYSICAL EXAMINATION: GENERAL: On arrival to the hospital, she looked well and was clearly in no apparent respiratory distress. No jaundice, cyanosis or thyromegaly. No jugular venous distention. No limb edema. VITAL SIGNS: Her heart rate was 100, blood pressure was 99/68, temperature was 97.7, respiratory rate 20 and oxygen saturation was 95%. HEAD, EYES, NOSE AND THROAT: Normocephalic, atraumatic. NECK: Supple. HEART: Showed normal first and second heart sounds. No gallop, rub or murmur. CHEST: Clear to auscultation. No crepitation or rhonchi. ABDOMEN: Distended, soft, nontender. No guarding or rigidity. No organomegaly. All hernial orifices intact. Bowel sounds normal. NEUROLOGIC: She was awake, alert, responding appropriately. Cranial nerves intact. EXTREMITIES: She moves all extremities without difficulty. The left lower extremity is definitely more swollen than the right lower extremity. The patient was admitted, switched back to Lovenox 140 mg subcutaneously twice a day, continued on all her other medications that included her multivitamin, metoprolol 50 mg twice a day, Protonix 40 mg b.i.d., Keppra 250 mg twice a day, docusate sodium 100 mg twice a day and oxycodone/APAP 5/325 one tablet every 4 hours. We did consult the interventional radiologist to see whether she needs to be switched to heparin drip. CAITLYN CORTÉS MD DR: NIK/meena JOB#: [id number] / [id number]
[2017-04-26 14:38] LABS: HEMATOCRIT 32.8 % (36.0-47.0); RED BLOOD COUNT 3.67 x10^6/uL (3.50-5.40); RED CELL DISTRIBUTION WIDTH 14.8 % (11.5-14.5); WHITE BLOOD COUNT 11.4 x10^3/uL (4.0-11.0)
--- NOTE | 2017-04-26 14:43 | PDOC ---
Provider Note Provider Note IR NOTE 11.15.17 Initiated tPA thrombolysis of LLE DVT from Pop through the left common iliac vein. AngioJet thrombectomy performed with significant clot debulking, but persistent clot seen in the CFV and iliac veins. Balloon maceration was performed, with some improvement but persistent thrombus. In line flow was re- established. Given persistent clot burden, an infusion catheter was placed as tPA lysis continued at 1 mg /hr. No immediate complications. Her Lovenox was held. She will get 500 U heparin per the sheath. Plan on repeat venogram and possible further intervention in AM. NEGIN PINA MD Apr 26, 2017 14:42
[2017-04-26 14:48] LABS: FIBRINOGEN 772 mg/dL (200-440); PARTIAL THROMBOPLASTIN TIME 32 SEC (24-38)
[2017-04-26 15:46] LABS: CALCIUM 9.3 mg/dL (8.5-10.1); CREATININE 0.8 mg/dL (0.6-1.0); GFR 85.4
[2017-04-26 15:47] LABS: POTASSIUM 3.7 mmol/L (3.5-5.1)
[2017-04-26] MEDS: ONDANSETRON PF 4 MG/2 ML VIAL. IV PRN ×2 (17:31→23:03)
[2017-04-26] MEDS ORDERED: TEMAZEPAM 15 MG CAPSULE PO PRN (18:00)
[2017-04-26] MEDS ORDERED: BACLOFEN 10 MG TABLET. PO PRN (18:00)
[2017-04-26] MEDS: FAMOTIDINE 20 MG/2 ML VIAL IVP SCH (20:55)
--- NOTE | 2017-04-26 23:40 | PN ---
DATE: 04/26/2017 SUBJECTIVE: The patient was admitted yesterday as a direct admit after she expressed her wishes to consider thrombolytic therapy. We did switch her back to Lovenox 140 mg subcutaneously twice a day and we did consult the interventional radiologist regarding the thrombolytic therapy. She was started on Alteplase Recombinant 10 mg at the hour and this is scheduled for thrombolytic therapy. This morning, according to the nursing staff, she did well and had no complaint, except pain in her left lower extremity. PHYSICAL EXAMINATION: Her vital signs showed her heart rate was 90, blood pressure was 103/66, temperature was 98, respiratory rate 16 and oxygen saturation was 95% on room air. The rest of clinical examination is unremarkable. LABORATORY DATA: Her lab work showed a white cell count 9500, hemoglobin 11.2, hematocrit 33, MCV 89 and platelet count 385,000. Her chemistry showed serum sodium of 136, potassium 3.5, chloride 99, bicarbonate 27, anion gap of 10, BUN 13, creatinine 0.9, estimated GFR was 75 mL per minute, her glucose was 85 and calcium was 9.7. Total bilirubin, AST, ALT and alkaline phosphatase were normal. Total protein was 8.1. Albumin 2.7. Her prothrombin time was 18.1, INR 1.6 and aPTT was 42. ASSESSMENT AND PLAN: Left lower extremity deep venous thrombosis and pulmonary embolism with extensive clot burden, here for thrombolytic therapy. Other medical problems including morbid obesity, for which she underwent gastric sleeve surgery successfully. She has a history of appendicitis, status post appendectomy; acute renal failure with resultant seizure; aspiration pneumonia and acute respiratory failure. CAITLYN CORTÉS MD DR: NIK/meena JOB#: [id number] / [id number]
[2017-04-27] VITALS (21 sets, daily range): BP systolic 92–114; BP diastolic 46–68
[2017-04-27 05:22] LABS: INR 1.7 (0.8-1.1); PROTHROMBIN TIME PATIENT 19.2 SEC (11.7-14.0)
[2017-04-27 05:28] LABS: HEMATOCRIT 31.4 % (36.0-47.0); HEMOGLOBIN 10.6 g/dL (12.0-15.5); RED BLOOD COUNT 3.55 x10^6/uL (3.50-5.40); RED CELL DISTRIBUTION WIDTH 14.8 % (11.5-14.5); WHITE BLOOD COUNT 7.6 x10^3/uL (4.0-11.0)
[2017-04-27 05:57] LABS: ALBUMIN 2.5 g/dL (3.4-5.0); ALBUMIN/GLOBULIN RATIO 0.6 (1.0-1.7); CALCIUM 9.2 mg/dL (8.5-10.1); CREATININE 0.9 mg/dL (0.6-1.0); GFR 74.6; POTASSIUM 3.4 mmol/L (3.5-5.1); TOTAL BILIRUBIN 0.5 mg/dL (0.2-1.0); TOTAL PROTEIN 6.7 g/dL (6.4-8.2)
[2017-04-27] MEDS ORDERED: LIDOCAINE 1% / SOD BICARB 8.4% 20 ML VIAL. IJ ONE (08:11)
[2017-04-27] MEDS ORDERED: IOHEXOL 300 MG/ML 100ML VIAL. ONE (08:12)
[2017-04-27] MEDS ORDERED: HEPARIN 25,000UTS/500ML PREMIX 500 ML IV PRN (08:30)
[2017-04-27] MEDS ORDERED: fentaNYL PF VIAL 100 MCG/2 ML VIAL ONE (08:39)
[2017-04-27] MEDS ORDERED: MIDAZOLAM HCL/PF 2 MG/2 ML VIAL. ONE (08:40)
[2017-04-27] MEDS ORDERED: LIDOCAINE 2% 20 ML VIAL. IJ ONE (08:45)
[2017-04-27] MEDS ORDERED: IOHEXOL 300 MG/ML 100ML VIAL. IART ONE (08:45)
[2017-04-27] MEDS ORDERED: MIDAZOLAM HCL/PF 2 MG/2 ML VIAL. IV ONE (08:45)
[2017-04-27] MEDS ORDERED: fentaNYL PF VIAL 100 MCG/2 ML VIAL IV ONE (08:45)
[2017-04-27] MEDS: METOPROLOL SUCC 24HR ER 50 MG TAB.ER.24H. PO SCH (09:00)
[2017-04-27] MEDS: DOCUSATE SODIUM 100 MG CAPSULE. PO SCH ×2 (10:57→21:00)
[2017-04-27] MEDS: levETIRAcetam 250 MG TABLET PO SCH ×2 (10:57→21:09)
[2017-04-27] MEDS: MULTIVITAMIN with MINERAL TABLET. PO SCH (10:57)
[2017-04-27] MEDS: FAMOTIDINE 20 MG/2 ML VIAL IVP SCH ×2 (10:57→21:08)
[2017-04-27] MEDS: PANTOPRAZOLE 40 MG TABLET.DR. PO SCH ×2 (10:57→16:33)
[2017-04-27] MEDS ORDERED: POTASSIUM CHLORIDE 20 MEQ TABLET.ER. PO ONE (19:00)
--- NOTE | 2017-04-27 19:03 | PN ---
DATE: 04/27/2017 SUBJECTIVE: The patient is resting slightly propped up in bed, in no apparent distress, awake, alert. On questioning her, denied any complaint. The nursing staff did not voice any concern, stated that she had an uneventful night. The interventional radiologist recommended she needs to be on bed rest for about 6 hours, then she can start walking. She underwent AngioJet thrombectomy performed with significant clot debulking, but persistent clot seen in the common femoral vein and iliac veins. Balloon maceration was performed with some improvement, but persistent thrombus, and inline flow was reestablished given persistent clot burden on infusion. A catheter was placed as tPA lysis continued at 1 mg per hour. I will put her back on Lovenox and she can be transferred to the floor once she is able to get up. OBJECTIVE: GENERAL: On examining her this morning, she looked well and was clearly in no apparent respiratory distress, pale. No jaundice, cyanosis, or thyromegaly. No jugular venous distention. No limb edema. VITAL SIGNS: Her heart rate was 82, blood pressure was 95/50, temperature was 97.5, her respiratory rate was 18 and oxygen saturation was 96% on room air. HEAD, EYES, EARS, NOSE AND THROAT: Showed normocephalic, atraumatic. NECK: Supple. HEART: Showed normal first and second heart sounds with no gallop, rub or murmur. CHEST: Clear to auscultation. No crepitation or rhonchi. ABDOMEN: Distended, soft, nontender. No guarding or rigidity. No organomegaly. All hernial orifices intact. Bowel sounds normal. NEUROLOGIC: She was awake, alert, responding appropriately. Cranial nerves intact. She moves extremities without difficulty. INS AND OUTS: Her intake was 1059, output 667. LABORATORY DATA: Showed a white cell count 7600, hemoglobin 10.6, hematocrit 31.4, MCV 88 and platelet count of 306,000. Her serum sodium was 138, potassium 3.4, chloride 103, bicarbonate 26, anion gap of 9, BUN 11, creatinine 0.9, estimated GFR was 79 mL per minute. Her glucose was 86, calcium 9.2. Total bilirubin, AST, ALT, alkaline phosphatase were normal. Total protein 6.7, albumin 2.5. Her prothrombin time was 19.2, INR 1.7, aPTT was 40. ASSESSMENT: Left lower extremity deep venous thrombosis, pulmonary embolism with extensive clot burden, status post thrombectomy with significant clot debulking. Other medical problems include: A. Morbid obesity for which she underwent gastric bypass surgery successfully. B. Appendicitis for which the surgeon did not recommend any surgical intervention, was treated surgically. C. Acute renal failure, resultant seizures, aspiration pneumonia and acute respiratory failure. PLAN: To start Lovenox at 140 mg subQ twice a day and tomorrow we will switch her back to Eliquis. We will get her up and about and with physical and occupational therapy this afternoon and she can be discharged back home tomorrow. CAITLYN CORTÉS MD DR: NIK/meena JOB#: [id number] / [id number]
[2017-04-28 03:40] VITALS: BP 106/65
[2017-04-28 07:00] VITALS: BP 115/70
[2017-04-28] MEDS ORDERED: POTASSIUM CHLORIDE 20 MEQ TABLET.ER. PO SCH (08:00)
[2017-04-28] MEDS: DOCUSATE SODIUM 100 MG CAPSULE. PO SCH (09:00)
[2017-04-28] MEDS: MULTIVITAMIN with MINERAL TABLET. PO SCH (09:48)
[2017-04-28] MEDS: levETIRAcetam 250 MG TABLET PO SCH (09:48)
[2017-04-28] MEDS: PANTOPRAZOLE 40 MG TABLET.DR. PO SCH (09:48)
[2017-04-28] MEDS: FAMOTIDINE 20 MG/2 ML VIAL IVP SCH (09:49)
[2017-04-28] MEDS: METOPROLOL SUCC 24HR ER 50 MG TAB.ER.24H. PO SCH (09:49)
[2017-04-28] MEDS ORDERED: ANTI-COAG MONITOR BY PHARMACY. MC PRN (10:15)
[2017-04-28] MEDS ORDERED: APIXABAN 5 MG TABLET. PO SCH (10:30)
[2017-04-28 11:00] VITALS: BP 120/74
--- NOTE | 2017-04-28 12:26 | DS ---
DATE OF DISCHARGE: 04/28/2017 HOSPITAL COURSE: The patient is resting slightly propped up in bed, in no apparent respiratory distress. She is awake and alert. On questioning her, denied any complaints, in particular, she has no pain in her lower extremities. She has been up and about walking with a walker. Did complain of diarrhea, but overall is feeling generally well and ready to go home. She underwent tPA thrombolysis of her left lower extremity DVT from popliteal to the left common iliac vein successfully, and we did start her on Lovenox and will be discharged on Eliquis. PHYSICAL EXAMINATION: GENERAL: When I examined her this morning, she looked well and was clearly in no apparent distress, slightly pale, but no jaundice, cyanosis, or thyromegaly. No jugular venous distention. No limb edema. VITAL SIGNS: Her heart rate was 98, blood pressure 115/70, temperature was 98, respiratory rate 20, and oxygen saturation was 96% on room air. HEAD, EYES, EARS, NOSE AND THROAT: Showed normocephalic, atraumatic. NECK: Supple. HEART: Showed normal first and second heart sounds with no gallop, rub or murmur. CHEST: Clear to auscultation. No crepitation or rhonchi. ABDOMEN: Distended, soft, nontender. No guarding or rigidity. No organomegaly. Hernial orifices intact. Bowel sounds normal. NEUROLOGIC: She is awake, alert, responding appropriately. Cranial nerves are intact. She moves extremities without difficulty. She ambulates with a walker. Her intake over the last 24 hours was 700, output was 1000. LABORATORY DATA: As of yesterday showed a serum sodium 138, potassium 3.4, chloride 103, bicarbonate 26, anion gap of 9, BUN 11, creatinine 0.9, estimated GFR was 75 mL per minute. Her glucose was 86. Calcium was 9.2. Total bilirubin, AST, ALT, alkaline phosphatase were normal. Total protein 6.7, albumin 2.5. Her white cell count was 7600, hemoglobin 10.6, hematocrit 31, MCV 88, and platelet count 206,000. DISCHARGE MEDICATIONS: She will be discharged home to continue on apixaban 10 mg b.i.d., famotidine 20 mg p.o. b.i.d., baclofen 10 mg q. 8 hourly, temazepam 15 mg at bedtime, oxycodone/APAP 5/325 one tablet every 4 hours, multivitamin 1 tablet once a day, metoprolol 50 mg twice a day, Protonix 40 mg twice a day and Keppra 250 mg once a day. FINAL DISCHARGE DIAGNOSES: 1. Left lower extremity deep vein thrombosis and pulmonary embolism with extensive clot burden, status post tPA thrombolytic therapy successfully. 2. Morbid obesity for which she underwent gastric sleeve surgery successfully. 3. History of appendicitis, status post appendectomy. 4. Acute renal failure with resultant seizures. 5. Aspiration pneumonia with acute respiratory failure on previous admission. HISTORY OF PRESENT ILLNESS: The patient was discharged home to continue on Eliquis 10 mg twice a day for 7 days and then 5 mg twice a day for a total of 6 months, advised to contact Dr. Trujillo if she has any swelling in her legs or worsening shortness of breath or hemoptysis. CAITLYN CORTÉS MD DR: NIK/meena JOB#: [id number] / [id number]
== END 2017-04-28 13:25 | disposition home or self-care (01) | DRG 299 ==
LOC: 5 SOUTH 17:51 → 1 WEST ICU 04-26 14:19 → 2 SOUTH 04-27 17:17
PROVIDERS: ADMIT Internal Medicine; ATTEND Internal Medicine
DX: I82.402 Acute embolism and thrombosis of unspecified deep veins of left lower extremity (principal); I26.99 Other pulmonary embolism without acute cor pulmonale; J96.00 Acute respiratory failure, unspecified whether with hypoxia or hypercapnia; J69.0 Pneumonitis due to inhalation of food and vomit; N17.9 Acute kidney failure, unspecified; E66.01 Morbid (severe) obesity due to excess calories; K37 Unspecified appendicitis; R56.9 Unspecified convulsions; Z79.01 Long term (current) use of anticoagulants; Z83.3 Family history of diabetes mellitus; Z87.19 Personal history of other diseases of the digestive system; Z90.49 Acquired absence of other specified parts of digestive tract; Z98.84 Bariatric surgery status
CPT/HCPCS: 36415; 37212; 37214; 37248; 70330; 75820; 76937; 80048; 80053; 84132; 85025; 85027; 85384; 85610; 85730; 86850; 86900; 86901; 87641; 99152; 99153; A4215; C1725; C1757; C1769; C1892; C1894; J1644; J1650; J2250; J2405; J2997; J3010; J7030; J7050; Q9967; S0028